=== PATIENT | female | born 1975 | race Caucasian/White ===

== ENCOUNTER 2018-05-19 15:07 | Inpatient (IN) | payer MEDICAID ==
[~2018-05-19] VITALS: Ht 157.5 cm; Wt 95.0 kg
[2018-05-19] VITALS (9 sets, daily range): BP systolic 140–167; BP diastolic 77–124
[2018-05-19] MEDS ORDERED: inSUlin REGULAR TPN/DRIP 250 UNITS/NS 250 ML IV SCH ×2 (17:30)
[2018-05-19] MEDS ORDERED: METOCLOPRAMIDE INJ 10 MG/2 ML (REGLAN) ONE (17:35)
[2018-05-19] MEDS ORDERED: D5 1/2 NS 1000 ML IV SOLUTION 1,000 ML IV ONE (17:36)
[2018-05-19] MEDS ORDERED: POTASSIUM CL 10MEQ/50ML IVPB 50 ML IV ONE (17:36)
[2018-05-19] MEDS: POTASSIUM CL 10 MEQ/50 ML IVPB (PRE-MIX) IV PRN ×3 (17:42→22:00)
[2018-05-19] MEDS: METOCLOPRAMIDE INJ 10 MG/2 ML (REGLAN) IVP SCH (17:42)
[2018-05-19] MEDS: D5 1/2 NS 1000 ML IV SOLUTION 1,000 ML IV PRN ×2 (17:42→22:00)
[2018-05-19] MEDS ORDERED: NS IV 1000 ML 1,000 ML IV ONE (17:45)
[2018-05-19] MEDS ORDERED: POTASSIUM CL 10 MEQ/50 ML IVPB (PRE-MIX) IV PRN (17:45)
[2018-05-19 17:47] LABS: HEMOGLOBIN 15.3 G/DL (11.5-16.0); RED CELL DISTRIBUTION WIDTH 12.8 % (10.0-14.5); WHITE BLOOD COUNT 16.2 10^3/uL (4.3-11.0)
[2018-05-19] MEDS: 1/2 NS IV SOLUTION 1,000 ML IV SCH ×3 (18:01→23:22)
[2018-05-19 18:07] LABS: BUN/CREATININE RATIO 12; CALCIUM 9.5 MG/DL (8.5-10.1); CARBON DIOXIDE 19 MMOL/L (21-32); CHLORIDE 101 MMOL/L (98-107); CREATININE SERUM 0.86 MG/DL (0.60-1.30); GFR ESTIMATED > 60; GLUCOSE 176 MG/DL (70-105); POTASSIUM 4.6 MMOL/L (3.6-5.0); SODIUM 135 MMOL/L (135-145)
[2018-05-19 18:22] LABS: BILIRUBIN,URINE NEGATIVE (NEGATIVE); CLARITY,URINE CLEAR; COLOR,URINE YELLOW; GLUCOSE, URINE (UA) NEGATIVE (NEGATIVE); KETONES,URINE NEGATIVE (NEGATIVE); LEUKOCYTE ESTERASE ,URINE NEGATIVE (NEGATIVE); NITRITE,URINE NEGATIVE (NEGATIVE); PH,URINE 7 (5-9); PROTEIN,URINE NEGATIVE (NEGATIVE); UROBILINOGEN,URINE NORMAL (NORMAL)
[2018-05-19 18:28] LABS: RBC,URINE RARE /HPF; SQUAMOUS EPITHELIAL CELL,UR 0-2 /HPF
[2018-05-19 19:36] LABS: CALCIUM 8.8 MG/DL (8.5-10.1); CARBON DIOXIDE 21 MMOL/L (21-32); GLUCOSE 248 MG/DL (70-105)
[2018-05-19 19:43] LABS: CHLORIDE 103 MMOL/L (98-107); POTASSIUM 3.8 MMOL/L (3.6-5.0)
[2018-05-19 19:51] LABS: BUN/CREATININE RATIO 11; CREATININE SERUM 0.83 MG/DL (0.60-1.30); GFR ESTIMATED > 60
[2018-05-19 21:08] LABS: SODIUM 133 MMOL/L (135-145)
[2018-05-19] MEDS: traZODone 150 MG (DESYREL) TABLET PO SCH (21:57)
[2018-05-19] MEDS: PANTOPRAZOLE 40 MG (PROTONIX) TAB PO SCH (21:57)
--- NOTE | 2018-05-19 22:32 | NUR ---
This RN called EICU at 2201, pt complaining of severe upper abdominal pain. Gave patient warm blankets. Orders received at 2231 .
[2018-05-19] MEDS ORDERED: fentaNYL INJECTION 100 MCG/2 ML AMP IV ONE (23:00)
[2018-05-19] MEDS: PROCHLORPERAZINE 10 MG/2ML INJ (COMPAZINE) IV PRN (23:04)
[2018-05-19 23:43] LABS: BUN/CREATININE RATIO 9; CALCIUM 8.5 MG/DL (8.5-10.1); CARBON DIOXIDE 20 MMOL/L (21-32); CHLORIDE 104 MMOL/L (98-107); CREATININE SERUM 0.78 MG/DL (0.60-1.30); GFR ESTIMATED > 60; GLUCOSE 169 MG/DL (70-105); POTASSIUM 3.3 MMOL/L (3.6-5.0); SODIUM 137 MMOL/L (135-145)
[2018-05-20] VITALS (14 sets, daily range): BP systolic 144–185; BP diastolic 67–111
[2018-05-20] MEDS: METOCLOPRAMIDE INJ 10 MG/2 ML (REGLAN) IVP SCH ×5 (00:01→23:32)
[2018-05-20] MEDS: POTASSIUM CL 10 MEQ/50 ML IVPB (PRE-MIX) IV PRN ×3 (00:51→05:24)
[2018-05-20] MEDS: 1/2 NS IV SOLUTION 1,000 ML IV SCH ×2 (02:39→10:35)
[2018-05-20] MEDS: D5 1/2 NS 1000 ML IV SOLUTION 1,000 ML IV PRN (02:39)
[2018-05-20 03:57] LABS: BASOPHILS % (AUTO) 0 % (0-10); EOSINOPHILS # (AUTO) 0.1 10^3/uL (0.0-0.3); EOSINOPHILS % (AUTO) 1 % (0-10); HEMATOCRIT 40 % (35-52); HEMOGLOBIN 14.4 G/DL (11.5-16.0); LYMPHOCYTES # (AUTO) 2.6 X 10^3 (1.0-4.0); LYMPHOCYTES % (AUTO) 30 % (12-44); MEAN CORPUSCULAR HEMOGLOBIN 33 PG (25-34); MEAN CORPUSCULAR HGB CONC 36 G/DL (32-36); MEAN CORPUSCULAR VOLUME 91 FL (80-99); MEAN PLATELET VOLUME 10.1 FL (7.4-10.4); MONOCYTES % (AUTO) 11 % (0-12); NEUTROPHILS % (AUTO) 58 % (42-75); PLATELET COUNT 199 10^3/uL (130-400); RED CELL DISTRIBUTION WIDTH 12.9 % (10.0-14.5); WHITE BLOOD COUNT 8.6 10^3/uL (4.3-11.0)
[2018-05-20 04:21] LABS: BUN/CREATININE RATIO 6; CALCIUM 8.4 MG/DL (8.5-10.1); CARBON DIOXIDE 22 MMOL/L (21-32); CHLORIDE 107 MMOL/L (98-107); CREATININE SERUM 0.79 MG/DL (0.60-1.30); GFR ESTIMATED > 60; GLUCOSE 153 MG/DL (70-105); MAGNESIUM 1.7 MG/DL (1.8-2.4); POTASSIUM 3.6 MMOL/L (3.6-5.0); SODIUM 139 MMOL/L (135-145)
[2018-05-20] MEDS ORDERED: inSUlin DETERMIR 1 UNIT/0.01 ML (LEVEMIR) CHARGE PER UNIT SQ ONE ×2 (05:12→05:45)
[2018-05-20] MEDS: MAGNESIUM 1 GM/100 ML IVPB 100 ML IV SCH ×2 (05:24→06:30)
[2018-05-20] MEDS: inSUlin ASPART (NovoLOG) 1 UNIT/0.01 ML (CHARGE PER UNIT) SC SCH ×6 (05:41→19:40)
[2018-05-20] MEDS ORDERED: POTASSIUM CL 10MEQ/50ML IVPB 50 ML IV SCH (06:00)
[2018-05-20] MEDS ORDERED: KCL 20 MEQ TAB (K-DUR) PO SCH (06:00)
[2018-05-20] MEDS ORDERED: MAGNESIUM 1 GM/100 ML IVPB 100 ML IV SCH (06:00)
--- NOTE | 2018-05-20 07:06 | Pulmonary Consultation ---
History of Present Illness History of Present Illness Date of Consultation 05/20/18 07:01 Time Seen by Provider: 07:16 Date of Admission History of Present Illness 42yo with hx of DM II, COPD current tobacco use, REHANA presented as direct admit from [facility] secondary to acute DKA. She has not had any prior episodes of DKA and only takes metformin at home. She is currently on DKA protocol. She has complained of DARREL 8/10 cramping/sharp abdominal pain with nausea and vomiting during the night. She still c/o persistent abdominal pain. No prior episodes like this. No hx of acute pancreatitis or DKA. Vomiting was x 1. No fever/NS/ Chills. I am consulted for ICU/pulmonary management. Allergies and Home Medications Allergies Coded Allergies: adhesive tape (Verified Allergy, Unknown, 05/19/18) chlorhexidine (Verified Allergy, Unknown, 05/19/18) fluvoxamine (Verified Allergy, Unknown, 05/19/18) hydromorphone (Verified Allergy, Unknown, 05/19/18) latex (Verified Allergy, Unknown, 05/19/18) meperidine (Verified Allergy, Unknown, 05/19/18) morphine (Verified Allergy, Unknown, 05/19/18) sulfamethoxazole (Verified Allergy, Unknown, 05/19/18) trimethoprim (Verified Allergy, Unknown, 05/19/18) Past Hpgeayz-Jvyezv-Hmoish Hx Patient Social History Alcohol Use: Denies Use Recreational Drug Use: No Recent Foreign Travel: No Contact w/Someone Who Travel: No Recent Hopitalizations: No Immunizations Up To Date Date of Pneumonia Vaccine: May 19, 2015 Date of Influenza Vaccine: Mar 29, 2018 Seasonal Allergies Seasonal Allergies: Yes Past Medical History Respiratory: Yes Asthma Currently Using CPAP: Yes Currently Using BIPAP: No Cardiac: No Neurological: No Female 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 Disorders: Denies Sexually Transmitted Disease: No HIV/AIDS: No Genitourinary: No Gastrointestinal: Yes Gastroesophageal Reflux Musculoskeletal: No Endocrine: Yes Are Your Blood Sugars Over 250: No HEENT: Yes (wears glasses) Hearing Impairment: Denies Cancer: No Psychosocial: Yes (schizoeffective disorder) Anxiety, Depression Integumentary: No Blood Disorders: No Review of Systems Time Seen by Provider: 07:15 Constitutional: Weakness, Malaise Eyes: No: Pain, Vision change, Conjunctivae inflammation, Eyelid inflammation, Other, Redness ENT: Nose congestion; No: Ear pain, Ear discharge, Nose pain, Nose discharge, Mouth pain, Mouth swelling, Throat pain, Throat swelling, Other Respiratory: Cough, Dry, Shortness of breath, SOB with excertion, Wheezing Cardiovascular: Palpitations, Orthopnea, Paroxysmal Noc. Dyspnea Gastrointestinal: Nausea, Vomiting, Abdominal Pain; No: Diarrhea Genitourinary: No Dysuria, No Frequency, No Incontinence, No Hematuria, No Retention, No Other Sepsis Event Evaluation Height, Weight, BMI Height: 5'2.00" Weight: 209lbs. 7.0oz. 94.032782ja; 38.1 BMI Method: Exam Exam Vital Signs Date Time Temp Pulse Resp B/P (MAP) Pulse Ox O2 Delivery O2 Flow Rate FiO2 05/20/18 06:00 87 14 185/108 (133) 98 Room Air 05/20/18 05:00 85 17 157/84 (108) 98 Room Air 05/20/18 04:00 98.4 05/20/18 04:00 Room Air 05/20/18 04:00 83 20 151/85 (107) 95 Room Air 05/20/18 03:00 92 21 167/95 (119) 97 Room Air 05/20/18 02:00 90 21 144/92 (109) 93 Room Air 05/20/18 01:00 100 20 167/98 (121) 93 Room Air 05/20/18 01:00 100 05/20/18 00:04 98.0 05/20/18 00:00 Room Air 05/20/18 00:00 98 15 155/86 (109) 95 Room Air 05/19/18 22:00 89 19 166/98 (120) 97 Room Air 05/19/18 20:00 90 16 167/98 (121) 96 Room Air 05/19/18 20:00 Room Air 05/19/18 19:33 99.6 05/19/18 19:00 91 05/19/18 19:00 85 23 165/96 (119) 98 Room Air 05/19/18 18:00 90 15 149/77 (101) 96 Room Air 05/19/18 17:30 98 19 156/79 (104) Room Air 05/19/18 17:15 82 25 149/108 (122) 99 Room Air 05/19/18 17:00 97.6 05/19/18 17:00 93 20 141/77 (98) 96 Room Air 05/19/18 16:49 Room Air 05/19/18 16:45 86 8 146/78 (100) 96 Room Air 05/19/18 16:32 96 05/19/18 16:30 95 140/124 (129) 97 Room Air I & O 05/20/18 07:00 Intake Total 3450 ml Output Total 3100 ml Balance 350 ml Height & Weight Height: 5'2.00" Weight: 209lbs. 7.0oz. 94.838251un; 38.1 BMI Method: General Appearance: Anxious, Mild Distress, Obese HEENT: PERRL/EOMI, Normal ENT Inspection, Pharynx Normal Neck: Full Range of Motion, Normal Inspection, Non Tender, Supple Respiratory: Chest Non Tender, No Accessory Muscle Use, No Respiratory Distress , Decreased Breath Sounds Cardiovascular: Regular Rate, Rhythm, No Edema, No Gallop Capillary Refill: Less Than 3 Seconds Gastrointestinal: normal bowel sounds, soft, no organomegaly, distended (mild) ; No guarding, No rebound; tenderness (TTP RUQ) Extremity: Normal Capillary Refill Neurologic/Psychiatric: Alert, Oriented x3 Skin: Normal Color, Warm/Dry Lymphatic: No Adenopathy Results Lab Laboratory Tests 05/19/18 17:42 05/19/18 19:18 05/19/18 23:17 05/20/18 03:20 Assessment/Plan Assessment/Plan Acute DKA -18 units Levemir given this AM -D/C insulin protocol 2hrs after Levemir -IVF -education Persistent nausea/vomiting r/o acute pancreatitis -check amylase/lipase -IVF -May need CT of abd/pelvis - will see if pain n/v improves with DKA improvement. HTN -Obtain home med list. -Will start lisinopril and Lopressor PO HX of COPD with current tobacco use -Will do out patient pulmonary work up -Education Obesity with REHANA -pt can use her home CPAP machine ZOILA KURTZ DO May 20, 2018 07:06
[2018-05-20] MEDS: PROCHLORPERAZINE 10 MG/2ML INJ (COMPAZINE) IV PRN ×2 (07:56→12:51)
[2018-05-20] MEDS: NS IV 1000 ML 1,000 ML IV SCH ×2 (07:57→15:10)
[2018-05-20 07:58] LABS: AMYLASE 70 U/L (25-125); LIPASE 70 U/L (8-78)
--- NOTE | 2018-05-20 08:04 | Diagnostic Imaging Report ---
INDICATION: Shortness of breath. COMPARISON: None. FINDINGS: Single view of the chest demonstrate clear lungs bilaterally. The heart is normal. There is no pneumothorax. Osseous structures are normal. IMPRESSION: Negative chest. Dictated by: Dictated on workstation # [id number]
[2018-05-20] MEDS ORDERED: HALOPERIDOL 0.5 MG (HALDOL) TAB PO NR (09:20)
[2018-05-20] MEDS ORDERED: inSUlin DETERMIR 1 UNIT/0.01 ML (LEVEMIR) CHARGE PER UNIT SQ NR (09:22)
[2018-05-20] MEDS: meTOprolol TARTRATE 25 MG (LOPRESSOR) TABLET PO SCH ×2 (10:03→21:00)
[2018-05-20] MEDS: lisINopril 20 MG (PRINIVIL) TABLET PO SCH (10:03)
[2018-05-20] MEDS: inSUlin DETERMIR 1 UNIT/0.01 ML (LEVEMIR) CHARGE PER UNIT SQ SCH (10:04)
[2018-05-20] MEDS ORDERED: LISI10TA2 PO (10:28)
[2018-05-20] MEDS ORDERED: PROM25TA14 PO (10:29)
[2018-05-20] MEDS ORDERED: TRAM50TA2 PO (10:30)
[2018-05-20] MEDS ORDERED: LEVO500T80 PO (10:31)
[2018-05-20] MEDS ORDERED: VENL150T PO (10:32)
[2018-05-20] MEDS ORDERED: RT-ALBUINH IH (10:32)
[2018-05-20] MEDS ORDERED: IPRA3AMP31 IH (10:33)
[2018-05-20] MEDS ORDERED: METF750T2 PO (10:34)
[2018-05-20] MEDS ORDERED: TRAZ150T72 PO (10:34)
[2018-05-20] MEDS ORDERED: POTA10CA43 PO (10:35)
[2018-05-20] MEDS ORDERED: OMEP20CA12 PO (10:35)
[2018-05-20] MEDS ORDERED: METO10TA3 PO (10:36)
[2018-05-20] MEDS ORDERED: ONDA4TAB11 PO (10:36)
[2018-05-20] MEDS ORDERED: ACET-168 PO (10:37)
--- NOTE | 2018-05-20 10:38 | NUR ---
SPOKE TO PATIENT SHE STATED WHAT SHE TOOK AND HOW SHE TOOK HER MEDICATIONS. SHE COULD NOT RECAL THE STRENGTH OF THE ATORVASTATIN SO I CALLED [facility] IN [place] TO VERIFY.
--- NOTE | 2018-05-20 12:16 | History & Physical-Hospitalist ---
History of Present Illness HPI/Chief Complaint The patient is a 42-year-old white female with history of type II diabetes mellitus who noted the onset of nausea and vomiting 5 days ago when she woke up in the morning. She reports no previous problems with nausea and vomiting up until 6 months ago when she started having chronic problems with nausea and vomiting. She states it starts usually in the morning and is been refractory to metoclopramide she gets no benefit from Zofran but does note some intermittent improvement with Phenergan. She's had a workup that has entailed an EGD and gastric emptying studies which she reports were negative. She wasn' t sure of the GI specialist she seen but he is in [place]. She presented to the [facility] emergency room where she was noted to be in diabetic ketoacidosis. She was not aware of any previous history of diabetic ketoacidosis with other hospitalizations which there are been several over the last 6 month period. These have all been for hyperemesis. She denies any significant abdominal cramping mostly it is nausea. After emesis she will notice some facial edema but not before. About 24 hours after the onset of nausea and vomiting she will typically have several loose stools and does have a sensation of abdominal distention. She has a past history of total abdominal hysterectomy for benign reasons and cholecystectomy with no recent surgery. She denies any associated night sweats chills or fever. She does note that she stays on liquids symptoms are much less likely to occur. She reports roughly a 30 pound weight loss over the past 6 months. Date Seen 05/20/18 Time Seen by a Provider: 08:30 Attending Physician Regina Strauss MD PCP James Euceda MD Referring Physician Date of Admission May 19, 2018 at 16:26 Home Medications & Allergies Home Medications Reviewed patient Home Medication Reconciliation performed by pharmacy medication reconciliations optoelectronic technician and/or nursing. Patients Allergies have been reviewed. Allergies Allergies Coded Allergies adhesive tape (Verified Allergy, Unknown, 05/19/18) chlorhexidine (Verified Allergy, Unknown, 05/19/18) fluvoxamine (Verified Allergy, Unknown, 05/19/18) hydromorphone (Verified Allergy, Unknown, 05/19/18) latex (Verified Allergy, Unknown, 05/19/18) meperidine (Verified Allergy, Unknown, 05/19/18) morphine (Verified Allergy, Unknown, 05/19/18) sulfamethoxazole (Verified Allergy, Unknown, 05/19/18) trimethoprim (Verified Allergy, Unknown, 05/19/18) Past Xckghow-Ytjdpz-Lvozkj Hx Past Med/Social Hx: Reviewed and Corrections made Patient Social History Alcohol Use: Denies Use Recreational Drug Use: No Physical Abuse Screen: No Sexual Abuse: No Recent Foreign Travel: No Contact w/other who traveled: No Recent Hopitalizations: No Immunizations Up To Date Date of Pneumonia Vaccine: May 19, 2015 Date of Influenza Vaccine: Mar 29, 2018 Seasonal Allergies Seasonal Allergies: Yes Past Medical History Currently Using CPAP: Yes Currently Using BIPAP: No Sexually Transmitted Disease: No HIV/AIDS: No Female 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 Disorders: Denies Gastrointestinal: Gastroesophageal Reflux Are Your Blood Sugars Over 250: No Hearing Impairment: Denies Psychosocial: Anxiety, Depression History of Blood Disorders: No Review of Systems Constitutional: weight loss Respiratory: No no symptoms reported; see HPI; No cough, No dyspnea on exertion , No hemoptysis, No orthopnea, No phlegm, No short of breath, No stridor, No wheezing, No other Gastrointestinal: see HPI (No melena or bright red blood per rectum noted. Patient denies constipation as well.) Physical Exam Physical Exam Vital Signs Vital Signs - First Documented 05/19/18 05/19/18 05/19/18 16:30 16:45 17:00 Temp 97.6 Pulse 95 Resp 8 B/P (MAP) 140/124 (129) Pulse Ox 97 O2 Delivery Room Air Capillary Refill : Less Than 3 Seconds Height, Weight, BMI Height: 5'2.00" Weight: 209lbs. 7.0oz. 94.805499ht; 38.1 BMI Method: General Appearance: No Apparent Distress, Obese Neck: Full Range of Motion, Normal Inspection, Non Tender, Supple Respiratory: Chest Non Tender, Lungs Clear, Normal Breath Sounds, No Accessory Muscle Use, No Respiratory Distress Cardiovascular: Regular Rate, Rhythm, No Edema, No Gallop, No JVD, No Murmur, Normal Peripheral Pulses Gastrointestinal: Normal Bowel Sounds, No Organomegaly, No Pulsatile Mass, Non Tender, Soft Extremity: Normal Capillary Refill, Normal Inspection, Normal Range of Motion, Non Tender, No Calf Tenderness, No Pedal Edema Neurologic/Psychiatric: Alert, Oriented x3, No Motor/Sensory Deficits, Normal Mood/Affect Skin: Normal Color, Warm/Dry Results Results/Procedures Labs Laboratory Tests 05/19/18 17:42 05/19/18 19:18 05/19/18 23:17 05/20/18 03:20 Patient resulted labs reviewed. Assessment/Plan Admission Diagnosis 1. Diabetic ketoacidosis brought on by hyperemesis of unknown etiology. Patient reports that her gastric emptying study was normal making diabetic gastroparesis less likely. At the time of her symptoms last night KUB did not reveal any evidence to suggest mechanical obstruction however this does not exclude the possibility of partial small bowel obstruction especially in light of an individual who had rather abrupt onset of symptoms with several abdominal surgeries in the past. Strongly advised that she return to see her parts room associate upon discharge and that she remain on insulin therapy on discharge. Currently her ketosis has resolved overnight will transfer to the floor later on today on basal bolus therapy. For additional treatment of hyperemesis after discussion with the patient about potential medication side effects will initiate Haldol 1 mg twice a day. She was warned about sedation and other side effects however she reports no sedation with Phenergan and 300 mg of trazodone allows her to sleep without oversedation. Admission Status: Inpatient Order (span 2 midnights) Reason for Inpatient Admission: See admission diagnosis Clinical Quality Measures DVT/VTE Risk/Contraindication: Risk Factor Score Per Nursin RFS Level Per Nursing on Admit: 4+=Very High REGINA STRAUSS MD May 20, 2018 12:16
--- NOTE | 2018-05-20 17:59 | NUR ---
LEFT MESSAGE ON DR STRAUSS'S PHONE REQUESTING ALTERNATE NAUSEA MEDICATION. THE PATIENT HAS HAD 2 DOSES OF COMPAZINE (PHARMACY NOTE STATES TO GIVE A MAXIMIN OR 2 DOSES A DAY) TODAY AND HER SCHEDULED REGLAN.
--- NOTE | 2018-05-20 18:39 | NUR ---
SENT A MESSAGE TO DR STRAUSS REGARDING PREVIOUS MESSAGE AND REQUESTED NAUSEA MEDICATION.
--- NOTE | 2018-05-20 18:43 | NUR ---
NEW ORDER RECEIVED FROM DR STRAUSS.
[2018-05-20] MEDS: PROMETHAZINE 25 MG (PHENERGAN) TAB PO PRN (18:52)
[2018-05-20] MEDS: traZODone 150 MG (DESYREL) TABLET PO SCH (21:00)
[2018-05-20] MEDS: HALOPERIDOL 2 MG (HALDOL) TABLET PO SCH (21:00)
[2018-05-20] MEDS ORDERED: inSUlin DETERMIR 1 UNIT/0.01 ML (LEVEMIR) CHARGE PER UNIT SQ SCH (21:00)
[2018-05-20] MEDS: PANTOPRAZOLE 40 MG (PROTONIX) TAB PO SCH (21:00)
--- NOTE | 2018-05-20 23:17 | NUR ---
Patient c/o 10/10 sharp pains in abdomen and states that "the pain medication from yesterday worked". This RN saw that fentanyl was ordered yesterday and cantacted Dr. Sandhu who gave TORB for 50mcg Fentanyl IVP Q2H PRN for severe pain.
[2018-05-20] MEDS: fentaNYL INJECTION 100 MCG/2 ML AMP IVP PRN (23:33)
[2018-05-21] MEDS: NS IV 1000 ML 1,000 ML IV SCH ×4 (02:03→16:57)
[2018-05-21 04:00] VITALS: BP 165/74
[2018-05-21 05:01] LABS: BASOPHILS % (AUTO) 0 % (0-10); EOSINOPHILS # (AUTO) 0.1 10^3/uL (0.0-0.3); EOSINOPHILS % (AUTO) 1 % (0-10); HEMATOCRIT 41 % (35-52); HEMOGLOBIN 14.2 G/DL (11.5-16.0); LYMPHOCYTES # (AUTO) 1.9 X 10^3 (1.0-4.0); LYMPHOCYTES % (AUTO) 25 % (12-44); MEAN CORPUSCULAR HEMOGLOBIN 32 PG (25-34); MEAN CORPUSCULAR HGB CONC 35 G/DL (32-36); MEAN CORPUSCULAR VOLUME 92 FL (80-99); MEAN PLATELET VOLUME 10.3 FL (7.4-10.4); MONOCYTES # (AUTO) 0.9 X 10^3 (0.0-1.0); MONOCYTES % (AUTO) 11 % (0-12); NEUTROPHILS # (AUTO) 4.8 X 10^3 (1.8-7.8); NEUTROPHILS % (AUTO) 62 % (42-75); PLATELET COUNT 180 10^3/uL (130-400); RED CELL DISTRIBUTION WIDTH 12.8 % (10.0-14.5); WHITE BLOOD COUNT 7.7 10^3/uL (4.3-11.0)
[2018-05-21 05:19] LABS: BUN/CREATININE RATIO 4; CALCIUM 8.1 MG/DL (8.5-10.1); CARBON DIOXIDE 19 MMOL/L (21-32); CHLORIDE 107 MMOL/L (98-107); CREATININE SERUM 0.74 MG/DL (0.60-1.30); GFR ESTIMATED > 60; GLUCOSE 193 MG/DL (70-105); MAGNESIUM 1.6 MG/DL (1.8-2.4); PHOSPHORUS 2.8 MG/DL (2.3-4.7); POTASSIUM 3.7 MMOL/L (3.6-5.0); SODIUM 137 MMOL/L (135-145)
--- NOTE | 2018-05-21 06:01 | Pulmonary Progress Note ---
Subjective Time Seen by a Provider: 07:56 Subjective/Events-last exam No complications noted. Sepsis Event Evaluation Height, Weight, BMI Height: 5'2.00" Weight: 209lbs. 7.0oz. 94.539806gb; 38.1 BMI Method: Exam Exam Vital Signs Date Time Temp Pulse Resp B/P (MAP) Pulse Ox O2 Delivery O2 Flow Rate FiO2 05/21/18 04:00 99.2 88 16 165/74 (104) 95 Room Air 05/20/18 23:31 98.9 82 20 158/90 (112) 97 Room Air 05/20/18 20:06 99.0 79 18 158/67 (97) 95 Room Air 05/20/18 20:00 Room Air 05/20/18 16:00 97.9 88 20 159/81 (107) 97 Room Air 05/20/18 13:00 97.9 82 20 155/85 (108) 97 Room Air 05/20/18 12:00 69 21 98 Room Air 05/20/18 12:00 Room Air 05/20/18 11:00 81 25 95 Room Air 05/20/18 10:00 94 7 Room Air 05/20/18 09:00 89 15 Room Air 05/20/18 08:00 82 23 168/88 (114) 98 Room Air 05/20/18 08:00 Room Air 05/20/18 07:20 93 12 172/97 (122) 96 Room Air 05/20/18 07:08 104 05/20/18 07:00 105 26 178/111 (133) 96 Room Air 05/20/18 07:00 98.4 05/20/18 06:00 87 14 185/108 (133) 98 Room Air I & O 05/21/18 07:00 Intake Total 3760 ml Output Total 1800 ml Balance 1960 ml Height & Weight Height: 5'2.00" Weight: 209lbs. 7.0oz. 94.024846ao; 38.1 BMI Method: General Appearance: No Apparent Distress, Obese HEENT: PERRL/EOMI, Normal ENT Inspection, Pharynx Normal Neck: Full Range of Motion, Normal Inspection, Non Tender, Supple Respiratory: Chest Non Tender, Lungs Clear, Normal Breath Sounds, No Accessory Muscle Use, No Respiratory Distress Cardiovascular: Regular Rate, Rhythm, No Edema, No Gallop, No JVD, No Murmur, Normal Peripheral Pulses Capillary Refill: Less Than 3 Seconds Gastrointestinal: normal bowel sounds, soft, no organomegaly, distended (mild) ; No guarding, No rebound; tenderness (TTP RUQ) Extremity: Normal Capillary Refill, Normal Inspection, Normal Range of Motion, Non Tender, No Calf Tenderness, No Pedal Edema Neurologic/Psychiatric: Alert, Oriented x3, No Motor/Sensory Deficits, Normal Mood/Affect Skin: Normal Color, Warm/Dry Lymphatic: No Adenopathy Results Lab Laboratory Tests 05/19/18 17:42 05/19/18 19:18 05/19/18 23:17 05/20/18 03:20 05/21/18 04:40 Assessment/Plan Assessment/Plan HX of COPD with current tobacco use -Will do out patient pulmonary work up -Education Obesity with REHANA -pt can use her home CPAP machine Acute DKA - resolved -education Persistent nausea/vomiting r/o acute pancreatitis -amylase/lipase HTN -Obtain home med list. -Will start lisinopril and Lopressor PO ZOILA KURTZ DO May 21, 2018 06:01
[2018-05-21] MEDS: METOCLOPRAMIDE INJ 10 MG/2 ML (REGLAN) IVP SCH ×3 (06:10→16:56)
[2018-05-21] MEDS: inSUlin ASPART (NovoLOG) 1 UNIT/0.01 ML (CHARGE PER UNIT) SC SCH ×7 (06:35→19:37)
[2018-05-21] MEDS: fentaNYL INJECTION 100 MCG/2 ML AMP IVP PRN ×3 (07:46→20:12)
[2018-05-21 08:00] VITALS: BP 176/82
[2018-05-21] MEDS: lisINopril 20 MG (PRINIVIL) TABLET PO SCH (08:25)
[2018-05-21] MEDS: meTOprolol TARTRATE 25 MG (LOPRESSOR) TABLET PO SCH ×2 (08:25→20:12)
[2018-05-21] MEDS: inSUlin DETERMIR 1 UNIT/0.01 ML (LEVEMIR) CHARGE PER UNIT SQ SCH (08:26)
[2018-05-21] MEDS: HALOPERIDOL 2 MG (HALDOL) TABLET PO SCH ×2 (08:26→20:12)
--- NOTE | 2018-05-21 10:42 | Progress Note-Hospitalist ---
Subjective HPI/CC On Admission Date Seen by Provider: May 21, 2018 Time Seen by Provider: 07:30 The patient is a 42-year-old white female with history of type II diabetes mellitus who noted the onset of nausea and vomiting 5 days ago when she woke up in the morning. She reports no previous problems with nausea and vomiting up until 6 months ago when she started having chronic problems with nausea and vomiting. She states it starts usually in the morning and is been refractory to metoclopramide she gets no benefit from Zofran but does note some intermittent improvement with Phenergan. She's had a workup that has entailed an EGD and gastric emptying studies which she reports were negative. She wasn' t sure of the GI specialist she seen but he is in [place]. She presented to the [facility] emergency room where she was noted to be in diabetic ketoacidosis. She was not aware of any previous history of diabetic ketoacidosis with other hospitalizations which there are been several over the last 6 month period. These have all been for hyperemesis. She denies any significant abdominal cramping mostly it is nausea. After emesis she will notice some facial edema but not before. About 24 hours after the onset of nausea and vomiting she will typically have several loose stools and does have a sensation of abdominal distention. She has a past history of total abdominal hysterectomy for benign reasons and cholecystectomy with no recent surgery. She denies any associated night sweats chills or fever. She does note that she stays on liquids symptoms are much less likely to occur. She reports roughly a 30 pound weight loss over the past 6 months. Subjective/Events-last exam Patient had sharp epigastric in episode last night with emesis this predated fentanyl which I gave after contacted by nursing staff last night. There is no evidence for hematemesis she's had one loose stool was a melanotic and without evidence for bright red blood. Apparently prior to cholecystectomy she did have a bout of pancreatitis of which this is similar several years ago. Her lipase level was borderline high at 77 when she presented to [facility] on the . She was however in DKA at that time. She reports no history of alcohol consumption. Objective Exam Vital Signs Vital Signs Date Time Temp Pulse Resp B/P (MAP) Pulse Ox O2 Delivery O2 Flow Rate FiO2 05/21/18 08:00 95 Room Air 05/21/18 08:00 97.2 97 20 176/82 (113) Capillary Refill : Less Than 3 Seconds General Appearance: No Apparent Distress, Obese Respiratory: Chest Non Tender, Lungs Clear, Normal Breath Sounds, No Accessory Muscle Use, No Respiratory Distress Cardiovascular: Regular Rate, Rhythm, No Edema, No Gallop, No JVD, No Murmur, Normal Peripheral Pulses Gastrointestinal: Normal Bowel Sounds, No Organomegaly, No Pulsatile Mass, Soft , Other (Epigastric and left upper quadrant discomfort to palpation with epigastric guarding no rebound noted.) Extremity: Normal Inspection, Non Tender, No Pedal Edema Results/Procedures Lab Laboratory Tests 05/21/18 04:40 Patient resulted labs reviewed. Assessment/Plan Assessment and Plan Assess & Plan/Chief Complaint 1. Diabetic ketoacidosis brought on by hyperemesis and abdominal pain of unclear etiology former improved with reasonable blood sugar control will increase NovoLog to 7 units before meals and Levemir to 20 units at at bedtime. Lipase level on presentation was minimally elevated raising the possibility of acute exacerbation of chronic pancreatitis there were no CT findings to suggest chronic pancreatitis or acute pancreatitis done in [facility]. Repeat level today was normal down to the mid 30 range Patient reports that her gastric emptying study was normal making diabetic gastroparesis less likely. EGD was also reportedly normal both studies having been done in the past several months for the same symptomatology. At the time of her worst symptoms Tuesday night KUB did not reveal any evidence to suggest mechanical obstruction however this does not exclude the possibility of partial small bowel obstruction especially in light of an individual who had rather abrupt onset of symptoms with several abdominal surgeries in the past. Strongly advised that she return to see her carbonation equipment operator upon discharge and that she remain on insulin therapy on discharge. Currently her ketosis has resolved overnight will transfer to the floor later on today on basal bolus therapy. For additional treatment of hyperemesis after discussion with the patient about potential medication side effects will increase Haldol 2 mg twice a day. She was warned about sedation and tardive dyskinesia in layman's terms with chronic use of the medication. If symptoms persist would consider referral to [facility] where she has seen a carbonation equipment operator for further evaluation and consideration for endoscopic ultrasound etc. Clinical Quality Measures DVT/VTE Risk/Contraindication: Risk Factor Score Per Nursin RFS Level Per Nursing on Admit: 4+=Very High Copy Copies To 1: SELF,REGINA NUR MD, MD May 21, 2018 10:42
[2018-05-21 12:00] VITALS: BP 133/62
[2018-05-21 16:00] VITALS: BP 167/74
[2018-05-21 20:00] VITALS: BP 152/88
[2018-05-21] MEDS: PANTOPRAZOLE 40 MG (PROTONIX) TAB PO SCH (20:12)
[2018-05-21] MEDS: traZODone 150 MG (DESYREL) TABLET PO SCH (20:12)
[2018-05-21 23:48] VITALS: BP 178/81
[2018-05-22] VITALS (7 sets, daily range): BP systolic 134–183; BP diastolic 65–88
[2018-05-22] MEDS: METOCLOPRAMIDE INJ 10 MG/2 ML (REGLAN) IVP SCH ×2 (00:31→06:38)
[2018-05-22] MEDS: NS IV 1000 ML 1,000 ML IV SCH (00:32)
[2018-05-22] MEDS: fentaNYL INJECTION 100 MCG/2 ML AMP IVP PRN ×2 (03:22→09:51)
[2018-05-22] MEDS: inSUlin ASPART (NovoLOG) 1 UNIT/0.01 ML (CHARGE PER UNIT) SC SCH ×7 (05:36→20:38)
--- NOTE | 2018-05-22 07:02 | Pulmonary Progress Note ---
LIORKARO Farnsworth STUDENT 05/22/18 0702: Subjective Date Seen by a Provider: May 22, 2018 Time Seen by a Provider: 06:58 Sepsis Event Evaluation Height, Weight, BMI Height: 5'2.00" Weight: 209lbs. 7.0oz. 94.648709bo; 38.1 BMI Method: Exam Exam Vital Signs Date Time Temp Pulse Resp B/P (MAP) Pulse Ox O2 Delivery O2 Flow Rate FiO2 05/22/18 04:00 98.0 90 18 134/65 (88) 97 Room Air 05/21/18 23:48 97.4 89 20 178/81 (113) 97 Room Air 05/21/18 20:12 Room Air 05/21/18 20:00 98.1 84 18 152/88 (109) 97 Room Air 05/21/18 16:00 97.9 85 18 167/74 (105) 98 Room Air 05/21/18 12:00 99.4 93 18 133/62 (85) 96 Room Air 05/21/18 08:00 95 Room Air 05/21/18 08:00 97.2 97 20 176/82 (113) 96 Room Air I & O 05/22/18 07:00 Intake Total 6010 ml Balance 6010 ml Height & Weight Height: 5'2.00" Weight: 209lbs. 7.0oz. 94.138936wp; 38.1 BMI Method: General Appearance: No Apparent Distress, Obese HEENT: PERRL/EOMI, Normal ENT Inspection, Pharynx Normal Neck: Full Range of Motion, Normal Inspection, Non Tender, Supple Respiratory: Chest Non Tender, Lungs Clear, Normal Breath Sounds, No Accessory Muscle Use, No Respiratory Distress Cardiovascular: Regular Rate, Rhythm, No Edema, No Gallop, No JVD, No Murmur, Normal Peripheral Pulses Capillary Refill: Less Than 3 Seconds Gastrointestinal: normal bowel sounds, soft, no organomegaly, distended (mild) ; No guarding, No rebound; tenderness (TTP RUQ) Extremity: Normal Inspection, Non Tender, No Pedal Edema Neurologic/Psychiatric: Alert, Oriented x3, No Motor/Sensory Deficits, Normal Mood/Affect Skin: Normal Color, Warm/Dry Lymphatic: No Adenopathy Results Lab Laboratory Tests 05/21/18 04:40 Assessment/Plan Assessment/Plan HX of COPD with current tobacco use -Will do out patient pulmonary work up -Education Obesity with REHANA -pt can use her home CPAP machine Acute DKA -education -Continued elevation of beta hydroxybutyrate Persistent nausea/vomiting r/o acute pancreatitis -amylase/lipase WNL HTN -Obtain home med list. -Continue lisinopril and Lopressor ZOILA KURTZ DO 05/22/18 0842: Subjective Time Seen by a Provider: 08:39 Subjective/Events-last exam No SOB, cough, or hypoxia. Exam Exam General Appearance: No Apparent Distress, Obese HEENT: PERRL/EOMI, Normal ENT Inspection, Pharynx Normal Neck: Full Range of Motion, Normal Inspection, Non Tender, Supple Respiratory: Chest Non Tender, Lungs Clear, Normal Breath Sounds, No Accessory Muscle Use, No Respiratory Distress Cardiovascular: Regular Rate, Rhythm, No Edema, No Gallop, No JVD, No Murmur, Normal Peripheral Pulses Capillary Refill: Less Than 3 Seconds Gastrointestinal: normal bowel sounds, soft, no organomegaly, distended (mild) ; No guarding, No rebound Extremity: Normal Inspection, Non Tender, No Pedal Edema Neurologic/Psychiatric: Alert, Oriented x3, No Motor/Sensory Deficits, Normal Mood/Affect Skin: Normal Color, Warm/Dry Lymphatic: No Adenopathy Assessment/Plan Assessment/Plan HX of COPD with current tobacco use -Will do out patient pulmonary work up -Education Obesity with REHANA -pt can use her home CPAP machine Acute DKA -education -Continued elevation of beta hydroxybutyrate Persistent nausea/vomiting r/o acute pancreatitis -amylase/lipase WNL HTN -Obtain home med list. -Continue lisinopril and Lopressor I am going to sign off. I will f/u with her as an out patient for pulmonary workup. Please call with any questions or concerns. KARO TINAJERO STUDENT May 22, 2018 07:02 ZOILA KURTZ DO May 22, 2018 08:42
[2018-05-22] MEDS: PROMETHAZINE 25 MG (PHENERGAN) TAB PO PRN (07:36)
[2018-05-22] MEDS: lisINopril 20 MG (PRINIVIL) TABLET PO SCH (08:31)
[2018-05-22] MEDS: meTOprolol TARTRATE 25 MG (LOPRESSOR) TABLET PO SCH ×2 (08:32→20:38)
[2018-05-22] MEDS: HALOPERIDOL 2 MG (HALDOL) TABLET PO SCH ×2 (08:33→20:39)
[2018-05-22] MEDS: inSUlin DETERMIR 1 UNIT/0.01 ML (LEVEMIR) CHARGE PER UNIT SQ SCH (08:36)
[2018-05-22] MEDS ORDERED: SCOPOLAMINE 1.5 MG (TRANSDERM-SCOP) PATCH TD ONE (09:45)
--- NOTE | 2018-05-22 10:13 | Progress Note-Hospitalist ---
Subjective HPI/CC On Admission Date Seen by Provider: May 22, 2018 Time Seen by Provider: 10:07 The patient is a 42-year-old white female with history of type II diabetes mellitus who noted the onset of nausea and vomiting 5 days ago when she woke up in the morning. She reports no previous problems with nausea and vomiting up until 6 months ago when she started having chronic problems with nausea and vomiting. She states it starts usually in the morning and is been refractory to metoclopramide she gets no benefit from Zofran but does note some intermittent improvement with Phenergan. She's had a workup that has entailed an EGD and gastric emptying studies which she reports were negative. She wasn' t sure of the GI specialist she seen but he is in [place] [employer]. She presented to the [facility] emergency room where she was noted to be in diabetic ketoacidosis. She was not aware of any previous history of diabetic ketoacidosis with other hospitalizations which there are been several over the last 6 month period. These have all been for hyperemesis. She denies any significant abdominal cramping mostly it is nausea. After emesis she will notice some facial edema but not before. About 24 hours after the onset of nausea and vomiting she will typically have several loose stools and does have a sensation of abdominal distention. She has a past history of total abdominal hysterectomy for benign reasons and cholecystectomy with no recent surgery. She denies any associated night sweats chills or fever. She does note that she stays on liquids symptoms are much less likely to occur. She reports roughly a 30 pound weight loss over the past 6 months. Subjective/Events-last exam Pt reports persistent abdominal pain and nausea. Was able to keep most of her food down yesterday but vomited after breakfast this AM. Objective Exam Vital Signs Vital Signs Date Time Temp Pulse Resp B/P (MAP) Pulse Ox O2 Delivery O2 Flow Rate FiO2 05/22/18 12:29 98.6 81 20 147/86 (106) 97 Room Air Capillary Refill : Less Than 3 Seconds General Appearance: No Apparent Distress, Obese Respiratory: Lungs Clear, No Respiratory Distress Cardiovascular: Regular Rate, Rhythm, No Murmur Gastrointestinal: Normal Bowel Sounds, Soft; No Distended, No Guarding Neurologic/Psychiatric: Alert, Oriented x3 Results/Procedures Lab Patient resulted labs reviewed. Assessment/Plan Assessment and Plan Assess & Plan/Chief Complaint DKA Diagnosis/Problems Diagnosis/Problems (1) DKA (diabetic ketoacidoses) Status: Resolved Assessment & Plan: Resolved, off gtt Continue home insulin Await a1c Qualifiers: Diabetes mellitus type: type 2 Diabetes mellitus complication detail: without coma Qualified Codes: E11.10 - Type 2 diabetes mellitus with ketoacidosis without coma Resolution Date/Time: 05/22/18 @ 10:12 (2) Epigastric abdominal pain Assessment & Plan: Reports normal gastric emptying study With persistent nausea and vomiting Surgery consulted, appreciate recs Continue PPI NPO for scope Scopolamine added for nausea (3) Depression Status: Chronic Assessment & Plan: Resume home medications Qualifiers: Depression Type: major depressive disorder Major depression recurrence: unspecified whether recurrent Active/Remission status: remission status unspecified Qualified Codes: F32.9 - Major depressive disorder, single episode , unspecified Clinical Quality Measures DVT/VTE Risk/Contraindication: Risk Factor Score Per Nursin RFS Level Per Nursing on Admit: 4+=Very High OSMAR JEROME MD May 22, 2018 10:13
[2018-05-22] MEDS ORDERED: fentaNYL INJECTION 100 MCG/2 ML AMP ONE (12:52)
[2018-05-22] MEDS ORDERED: HURRICAINE EXT TUBE (BENZOCAINE) ONE (12:52)
[2018-05-22] MEDS ORDERED: NS IV 500 ML 500 ML ONE (12:52)
[2018-05-22] MEDS ORDERED: MIDAZOLAM 2 MG/2 ML (VERSED) VIAL ONE ×4 (12:52)
[2018-05-22] MEDS ORDERED: fentaNYL INJECTION 100 MCG/2 ML AMP IVP ONE (13:15)
[2018-05-22] MEDS ORDERED: MIDAZOLAM 2 MG/2 ML (VERSED) VIAL IVP ONE (13:15)
[2018-05-22] MEDS ORDERED: NS IV 500 ML 500 ML IV PRN (13:15)
[2018-05-22] MEDS ORDERED: HURRICAINE EXT TUBE (BENZOCAINE) XX PRN (13:15)
--- NOTE | 2018-05-22 13:18 | Conscious Sedation/ASA ---
Conscious Sedation Pre-Proced Time 13:05 ASA Score 2 For ASA 3 and 4: Consider anesthesia and medical clearance. Also, for patients with a history of failed moderate sedation consider anesthesia. Airway Lungs Heart ASA score ASA 1: a normal healthy patient ASA 2: a patient with a mild systemic disease (mid diabetes, controlled hypertension, obesity ASA 3: a patient with a severe systemic disease that limits activity (angina , COPD, prior Myocardial infarction) ASA 4: a patient with an incapacitating disease that is a constant threat to life (CHF, renal failure) ASA 5: a moribund patient not expected to survive 24 hrs. (ruptured aneurysm) ASA 6: a declared brain patient whose organs are being harvested. For emergent operations, add the letter E after the classification Mallampati Classification Grade 2 Sedation Plan Discussed options with patient/fam The patient is an appropriate candidate to undergo the planned procedure, sedation, and anesthesia. The patient immediately re-assessed prior to indication. SOPHIA ELIZABETH MD May 22, 2018 13:18
--- NOTE | 2018-05-22 13:18 | Progress Note-Standard ---
Standard Progress Note Progress Notes/Assess & Plan Date Seen by a Provider: May 22, 2018 Time Seen by a Provider: 12:50 Progress/Assessment & Plan Asked by Dr. Mccollum to see this lady regarding an upper endoscopy. Currently she is admitted with diabetic ketoacidosis and has ongoing nausea and vomiting. I've discussed the details of the procedure with her and she is in agreement to proceed Final Diagnosis nausea and vomiting SOPHIA ELIZABETH MD May 22, 2018 13:18
--- NOTE | 2018-05-22 13:21 | Endo Procedure Record ---
Endo Procedure Report Date of Procedure Last Colonoscopy: No May 22, 2018 Surgeon (s) SOPHIA ELIZABETH MD Post Procedure/Op Diagnosis grade 1 esophagitis. Mild distal gastritis. No retained food in the stomach Procedure Performed EGD with antral biopsy for H. pylori Description of Procedure Anesthesia Type: Conscious Sedation Specimen(s) collected/removed antral mucosa Description of the Procedure Indication for the procedure: This lady is recovering from diabetic ketoacidosis. Due to prolonged nausea and vomiting, I was asked to perform an upper endoscopy. Informed consent was obtained after reviewing the procedure in detail. Description of the procedure: She was placed in left lateral position and her vital signs were monitored. Conscious sedation was achieved using Versed and fentanyl. The flexible gastroscope introduced down the esophagus, past the stomach, into the proximal duodenum. Findings: Esophagus: Grade 1 esophagitis. Stomach: Mild distal gastritis. There was no retained food. Due to her symptoms, an antral biopsy was performed to rule out H. pylori. Duodenum: Normal She tolerated the procedure well and was taken back to the nursing area in a stable condition. Impression: Ongoing nausea and vomiting. Very minimal esophagitis and gastritis. H. pylori status pending. Copy Copies To 1: GLORY LINARES MD Copies To 2: OSMAR JEROME MD, XAVIER M MD May 22, 2018 13:21
[2018-05-22] MEDS: METOCLOPRAMIDE 10 MG (REGLAN) TAB PO SCH ×3 (13:59→20:38)
[2018-05-22] MEDS: PANTOPRAZOLE 40 MG (PROTONIX) TAB PO SCH (20:38)
[2018-05-22] MEDS ORDERED: traZODone 150 MG (DESYREL) TABLET PO SCH (21:00)
[2018-05-23 04:20] VITALS: BP 169/84
[2018-05-23] MEDS: inSUlin ASPART (NovoLOG) 1 UNIT/0.01 ML (CHARGE PER UNIT) SC SCH ×4 (06:20→11:57)
[2018-05-23] MEDS ORDERED: VENlafaxine XR 75 MG (EFFEXOR XR) CAP PO SCH (07:00)
[2018-05-23 08:15] VITALS: BP 138/88
[2018-05-23] MEDS: lisINopril 20 MG (PRINIVIL) TABLET PO SCH (09:28)
[2018-05-23] MEDS: METOCLOPRAMIDE 10 MG (REGLAN) TAB PO SCH (09:28)
[2018-05-23] MEDS: meTOprolol TARTRATE 25 MG (LOPRESSOR) TABLET PO SCH (09:28)
[2018-05-23] MEDS: inSUlin DETERMIR 1 UNIT/0.01 ML (LEVEMIR) CHARGE PER UNIT SQ SCH (09:29)
--- NOTE | 2018-05-23 09:39 | Discharge Summary-Hospitalist ---
Diagnosis/Chief Complaint Date of Admission May 19, 2018 at 16:26 Date of Discharge Discharge Date: May 23, 2018 Admission Diagnosis 1. Diabetic ketoacidosis brought on by hyperemesis of unknown etiology. Patient reports that her gastric emptying study was normal making diabetic gastroparesis less likely. At the time of her symptoms last night KUB did not reveal any evidence to suggest mechanical obstruction however this does not exclude the possibility of partial small bowel obstruction especially in light of an individual who had rather abrupt onset of symptoms with several abdominal surgeries in the past. Strongly advised that she return to see her director of parks and recreation upon discharge and that she remain on insulin therapy on discharge. Currently her ketosis has resolved overnight will transfer to the floor later on today on basal bolus therapy. For additional treatment of hyperemesis after discussion with the patient about potential medication side effects will initiate Haldol 1 mg twice a day. She was warned about sedation and other side effects however she reports no sedation with Phenergan and 300 mg of trazodone allows her to sleep without oversedation. Discharge Diagnosis (1) DKA (diabetic ketoacidoses) Status: Resolved Assessment & Plan: Resolved, off gtt Continue home insulin Await a1c (2) Epigastric abdominal pain Assessment & Plan: Reports normal gastric emptying study With persistent nausea and vomiting Surgery consulted, appreciate recs Continue PPI NPO for scope Scopolamine added for nausea (3) Depression Status: Chronic Assessment & Plan: Resume home medications Discharge Summary Procedures/Consulations Dr Hurd- Guarav Flannery- Surgery Discharge Physical Exam Allergies: Coded Allergies: adhesive tape (Verified Allergy, Unknown, 05/19/18) chlorhexidine (Verified Allergy, Unknown, 05/19/18) fluvoxamine (Verified Allergy, Unknown, 05/19/18) hydromorphone (Verified Allergy, Unknown, 05/19/18) latex (Verified Allergy, Unknown, 05/19/18) meperidine (Verified Allergy, Unknown, 05/19/18) morphine (Verified Allergy, Unknown, 05/19/18) sulfamethoxazole (Verified Allergy, Unknown, 05/19/18) trimethoprim (Verified Allergy, Unknown, 05/19/18) Vitals & I&Os Vital Signs Date Time Temp Pulse Resp B/P (MAP) Pulse Ox O2 Delivery O2 Flow Rate FiO2 05/23/18 08:20 Room Air 1/29/19 08:15 97.8 89 20 138/88 (105) 98 General Appearance: No Apparent Distress, WD/WN Cardiovascular: Regular Rate, Rhythm, No Murmur Gastrointestinal: Normal Bowel Sounds, Soft Neurologic/Psychiatric: Alert, Oriented x3 Hospital Course Pt was admitted from outside hospital for DKA. She was treated with an insulin drip and her ketoacidosis resolved quickly. She was started on insulin in preparation for discharge. She had persistent abdominal pain though with nausea and vomiting. She has previously seen a GI physician at [facility] and states she had a scope in November that was unremarkable. Dr Flannery was consulted who repeated EGD which showed mild esophagitis. She was continued on her PPI. Her symptoms improved with scopolamine patch. She underwent diabetes education and insulin teaching. I called her PCP, Dr Euceda, to update him to the changes that occurred during her hospital stay. She was discharged home in stable condition to follow up with Dr Euceda and Dr Herndon. Labs (last 24 hrs) Laboratory Tests 05/22/18 17:07: Glucometer 195H 05/22/18 20:14: Glucometer 147H 05/23/18 05:28: Glucometer 148H 05/23/18 08:33: Glucometer 199H Microbiology 05/19/18 MRSA Screen - Final, Complete MRSA not isolated Patient resulted labs reviewed. Pending Labs Laboratory Tests 05/23/18 08:33: Glucometer 199 Discussion & Recommendations Discharge Planning: >30 minutes discharge planning Discharge Home Medications: Active Scripts Active Metoprolol Tartrate 25 Mg Tablet 12.5 Mg PO BID Scopolamine 1 Each Patch.td.3 1 Each TD Q72H Levemir Flextouch (Insulin Detemir) 100 Unit/1 Ml Insuln.pen 20 Unit SQ HS Novolog Flexpen (Insulin Aspart) 300 Units/3 Ml Solution 7 Units SQ AC Lisinopril 20 Mg Tablet 20 Mg PO DAILY Reported Acetaminophen Extra Strength (Acetaminophen) 500 Mg Tablet 500 Mg PO Q8H PRN MDD 1500 Ondansetron Odt (Ondansetron) 4 Mg Tab.rapdis 4 Mg PO Q4H PRN Metoclopramide HCl 10 Mg Tablet 10 Mg PO QID Omeprazole 20 Mg Capsule.dr 20 Mg PO HS Metformin HCl ER (Metformin HCl) 750 Mg Tab.er.24h 750 Mg PO BID Trazodone HCl 150 Mg Tablet 300 Mg PO HS Iprat-Albut 0.5-3(2.5) mg/3 ml (Ipratropium/Albuterol Sulfate) 3 Ml Ampul.neb 3 Ml IH Q4H PRN Proair Hfa (Albuterol Sulfate) 1 Puff Puff 2 Puff IH Q4H PRN 1 PUFF = 90 MCG Venlafaxine HCl ER (Venlafaxine HCl) 150 Mg Tab.er.24 150 Mg PO DAILY Tramadol HCl 50 Mg Tablet 50 Mg PO Q6H PRN Promethazine Tablet (Promethazine HCl) 25 Mg Tablet 25 Mg PO Q6H PRN Instructions to patient/family Please see electronic discharge instructions given to patient. Clinical Quality Measures DVT/VTE Risk/Contraindication: Risk Factor Score Per Nursin RFS Level Per Nursing on Admit: 4+=Very High Copy Copies To 1: GLORY EUCEDA MD Problem Qualifiers (1) DKA (diabetic ketoacidoses): Diabetes mellitus type: type 2 Diabetes mellitus complication detail: without coma Qualified Codes: E11.10 - Type 2 diabetes mellitus with ketoacidosis without coma (2) Depression: Depression Type: major depressive disorder Major depression recurrence: unspecified whether recurrent Active/Remission status: remission status unspecified Qualified Codes: F32.9 - Major depressive disorder, single episode , unspecified OSMAR JEORME MD May 23, 2018 09:39
[2018-05-23] MEDS: HALOPERIDOL 2 MG (HALDOL) TABLET PO SCH (09:43)
--- NOTE | 2018-05-23 09:49 | Discharge Inst-Simple/Standard ---
Discharge Inst-Standard Discharge Medications New, Converted or Re-Newed RX: Transmitted to Pharmacy Patient Instructions/Follow Up Plan of Care/Instructions/FU: Please continue to take your medications as written. Please follow up with Dr Euceda and Dr Herndon in the next 1-2 weeks to follow up this hospital stay. Activity as Tolerated: Yes Discharge Diet: ADA Diet Return to The Hospital For: Inability to keep any food down, worsening abdominal pain, if you feel you are getting worse. OSMAR JEROME MD May 23, 2018 09:49
[2018-05-23] MEDS ORDERED: INSU100I14 SQ (09:55)
[2018-05-23] MEDS ORDERED: METO-333 PO (09:55)
[2018-05-23] MEDS ORDERED: SCOP1PAT17 TD (09:55)
[2018-05-23] MEDS ORDERED: INSU100I29 SQ (09:55)
[2018-05-23] MEDS ORDERED: LISI-552 PO (09:55)
== END 2018-05-23 13:00 | disposition home or self-care (01) | DRG 639 ==
LOC: ICU 16:26 → 4TH 05-20 12:56
PROVIDERS: ADMIT Internal Medicine; ATTEND Internal Medicine
PROC: 0DB78ZX Excision of Stomach, Pylorus, Via Natural or Artificial Opening Endoscopic, Diagnostic (ICD-10-PCS; principal; 2018-05-22 12:54)
DX: E11.10 Type 2 diabetes mellitus with ketoacidosis without coma (principal); J44.9 Chronic obstructive pulmonary disease, unspecified; R63.4 Abnormal weight loss; K21.0 Gastro-esophageal reflux disease with esophagitis; K29.70 Gastritis, unspecified, without bleeding; F41.9 Anxiety disorder, unspecified; F32.9 Major depressive disorder, single episode, unspecified; R11.2 Nausea with vomiting, unspecified; G47.33 Obstructive sleep apnea (adult) (pediatric); R10.13 Epigastric pain; E66.9 Obesity, unspecified; F25.9 Schizoaffective disorder, unspecified; I10 Essential (primary) hypertension; F17.200 Nicotine dependence, unspecified, uncomplicated; Z68.38 Body mass index [BMI] 38.0-38.9, adult; Z88.5 Allergy status to narcotic agent; Z88.2 Allergy status to sulfonamides; Z79.4 Long term (current) use of insulin
CPT/HCPCS: 36415; 71045; 80048; 81000; 82010; 82150; 82962; 83036; 83690; 83735; 84100; 85025; 85027; 87081

== ENCOUNTER → 2018-07-04 | Outpatient (CLI) | payer MEDICAID ==
[~2018-07-04] MED LIST: ACET-168 PO; INSU100I14 SQ; INSU100I29 SQ; IPRA3AMP31 IH; LEVO500T80 PO; LISI-552 PO; LISI10TA2 PO; METF750T2 PO; METO-333 PO; METO10TA3 PO; OMEP20CA12 PO; ONDA4TAB11 PO; POTA10CA43 PO; PROM25TA14 PO; RT-ALBUINH IH; SCOP1PAT17 TD; TRAM50TA2 PO; TRAZ150T72 PO; VENL150T PO
--- NOTE | 2018-07-04 16:00 | Diagnostic Imaging Report ---
CLINICAL INDICATION: Patient with low back pain and left hip pain and left leg pain. EXAM: MRI of the lumbar spine performed without IV contrast. Sagittal T2, sagittal T1, sagittal STIR, axial T1, and axial T2. COMPARISON: None. FINDINGS: Five lumbar type vertebra are identified. Lumbar spine has normal alignment with no fracture or dislocation. The lumbar vertebra have normal T1 and T2 signal. The visualized portions of the distal spinal cord, conus medullaris, and cauda equina have normal anatomic appearance. The conus medullaris tip is seen at the upper L1 vertebral body level. No paraspinal soft tissue abnormality is seen. There is a mild diffuse disc bulge at the T11-T12 level with minimal impression on the thecal sac anteriorly. There is no significant neural foramen narrowing. Otherwise, the lumbar spine shows no significant degenerative changes. There is no significant central spinal canal or neural foramen narrowing. There is no significant degenerative disease. The intervertebral disk spaces are well-preserved. IMPRESSION: 1: There is a T12 mild diffuse disc bulge which causes mild impression upon the thecal sac. 2: The remainder of the lumbar spine is unremarkable. Dictated by: Dictated on workstation # [id number]
== END ==
LOC: RAD 14:45
PROVIDERS: ATTEND Nurse Practitioner
DX: M51.24 Other intervertebral disc displacement, thoracic region (principal)
CPT/HCPCS: 72148

== ENCOUNTER → 2018-07-06 | Outpatient (CLI) | payer MEDICAID ==
--- NOTE | 2018-07-06 11:07 | Diagnostic Imaging Report ---
Clinical indication: Patient neck pain which is chronic and getting worse and having a hard time bending her neck. No injury. Exam: X-ray of the cervical spine, 5 views. Comparison: None. Findings: There is no acute fracture or dislocation. There is straightening of the cervical spine posture. There is mild to moderately hypertrophic anterior spurs at the C5-C6 level. There is no prevertebral soft tissue swelling. Intervertebral disc heights are well maintained. There is no significant bony neural foramen narrowing. Impression: Cervical spine degenerative disease most pronounced at C5-C6 level. Dictated by: Dictated on workstation # [id number]
== END ==
LOC: RAD FS 10:28
PROVIDERS: ATTEND Nurse Practitioner
DX: M50.322 Other cervical disc degeneration at C5-C6 level (principal)
CPT/HCPCS: 72050

== ENCOUNTER 2018-07-21 11:57 | Emergency (ER) | payer MEDICAID ==
[~2018-07-21] VITALS: Ht 157.5 cm; Wt 96.6 kg
[2018-07-21] MEDS ORDERED: NS IV 1000 ML 1,000 ML IV SCH (12:30)
[2018-07-21] MEDS ORDERED: diphenhydrAMINE 50 MG/ML INJ (BENADRYL) IVP ONE (12:30)
[2018-07-21 12:40] LABS: BILIRUBIN,URINE NEGATIVE (NEGATIVE); CLARITY,URINE SL CLOUDY; COLOR,URINE YELLOW; GLUCOSE, URINE (UA) 2+ (NEGATIVE); KETONES,URINE TRACE (NEGATIVE); LEUKOCYTE ESTERASE ,URINE NEGATIVE (NEGATIVE); NITRITE,URINE NEGATIVE (NEGATIVE); PROTEIN,URINE TRACE (NEGATIVE); UROBILINOGEN,URINE 0.2 MG/DL (NORMAL)
--- NOTE | 2018-07-21 12:44 | ED General ---
General Chief Complaint: Glucose Problems Stated Complaint: VOMITING; HYPERGLYCEMIA Nursing Triage Note: REPORTS HER BLOOD GLUCOSE WAS 437 @ 1020, SHE TOOK 14U AND IT WAS DOWN TO 332. REPORTS SHE HAS CHRONIC VOMITING AND PAIN WITH URINATION. WAS SEEN AT [facility] YESTERDAY. Nursing Sepsis Screen: No Definite Risk History of Present Illness Date Seen by Provider: Jul 21, 2018 Time Seen by Provider: 12:25 43-year-old female with a history of diabetes, gastroparesis, here with vomiting and abdominal cramping for 1 day, and elevated blood glucose this AM. 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 Normal bowel movements, no blood or melena. Emesis nonbilious nonbloody. No history of abdominal surgeries. No abdominal pain at this time, the abdominal cramping is left sided and does not radiate. Grossly normal urination. No vaginal bleeding or discharge. No headache or visual change or neurologic deficit. Had routine lab work done yesterday. Allergies and Home Medications Allergies Coded Allergies: adhesive tape (Verified Allergy, Unknown, 05/19/18) chlorhexidine (Verified Allergy, Unknown, 05/19/18) fluvoxamine (Verified Allergy, Unknown, 05/19/18) hydromorphone (Verified Allergy, Unknown, 05/19/18) latex (Verified Allergy, Unknown, 05/19/18) meperidine (Verified Allergy, Unknown, 05/19/18) morphine (Verified Allergy, Unknown, 05/19/18) sulfamethoxazole (Verified Allergy, Unknown, 05/19/18) trimethoprim (Verified Allergy, Unknown, 05/19/18) Home Medications Acetaminophen 500 Mg Tablet, 500 MG PO Q8H PRN for PAIN-BREAKTHROUGH, (Reported) Albuterol Sulfate 1 Puff Puff, 2 PUFF IH Q4H PRN for SHORTNESS OF BREATH, ( Reported) 1 PUFF = 90 MCG Insulin Aspart 300 Units/3 Ml Solution, 7 UNITS SQ AC Prescribed by: OSMAR JEROME on 05/23/18 0955 Insulin Detemir 100 Unit/1 Ml Insuln.pen, 20 UNIT SQ HS Prescribed by: OSMAR JEROME on 05/23/18 0955 Ipratropium/Albuterol Sulfate 3 Ml Ampul.neb, 3 ML IH Q4H PRN for SHORTNESS OF BREATH, (Reported) Lisinopril 20 Mg Tablet, 20 MG PO DAILY Prescribed by: OSMAR JEROME on 05/23/18954 Metformin HCl 750 Mg Tab.er.24h, 750 MG PO BID, (Reported) Metoclopramide HCl 10 Mg Tablet, 10 MG PO QID, (Reported) Metoprolol Tartrate 25 Mg Tablet, 12.5 MG PO BID Prescribed by: OSMAR JEROME on 05/23/18954 Omeprazole 20 Mg Capsule.dr, 20 MG PO HS, (Reported) Ondansetron 4 Mg Tab.rapdis, 4 MG PO Q4H PRN for NAUSEA/VOMITING-1ST LINE, ( Reported) Promethazine HCl 25 Mg Tablet, 25 MG PO Q6H PRN for NAUSEA/VOMITING, (Reported) Scopolamine 1 Each Patch.td.3, 1 EACH TD Q72H Prescribed by: OSMAR JEROME on 05/23/18954 Tramadol HCl 50 Mg Tablet, 50 MG PO Q6H PRN for PAIN-MILD, (Reported) Trazodone HCl 150 Mg Tablet, 300 MG PO HS, (Reported) Venlafaxine HCl 150 Mg Tab.er.24, 150 MG PO DAILY, (Reported) Patient Home Medication List Home Medication List Reviewed: Yes Review of Systems Review of Systems Constitutional: no symptoms reported EENTM: no symptoms reported Respiratory: no symptoms reported Cardiovascular: no symptoms reported Gastrointestinal: see HPI Genitourinary: no symptoms reported Musculoskeletal: no symptoms reported Skin: no symptoms reported Psychiatric/Neurological: No Symptoms Reported Hematologic/Lymphatic: No Symptoms Reported Immunological/Allergic: no symptoms reported Past Youvgmh-Eldxpg-Rgzjkm Hx Past Med/Social Hx: Reviewed Nursing Past Med/Soc Hx Patient Social History Recent Foreign Travel: No Contact w/Someone Who Travel: No Recent Infectious Disease Expo: No Recent Hopitalizations: No Immunizations Up To Date Date of Pneumonia Vaccine: May 19, 2015 Date of Influenza Vaccine: Mar 29, 2018 Seasonal Allergies Seasonal Allergies: Yes Past Medical History Respiratory: Yes Asthma Currently Using CPAP: Yes Currently Using BIPAP: No Cardiac: No Neurological: No Female 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 Disorders: Denies Sexually Transmitted Disease: No HIV/AIDS: No Genitourinary: No Gastrointestinal: Yes Gastroesophageal Reflux Musculoskeletal: No Endocrine: Yes HEENT: Yes (wears glasses) Hearing Impairment: Denies Cancer: No Psychosocial: Yes (schizoeffective disorder) Anxiety, Depression Integumentary: No Blood Disorders: No Physical Exam Vital Signs Vital Signs - First Documented 07/21/18 12:15 Temp 99.2 Pulse 91 Resp 16 B/P (MAP) 151/85 (107) Pulse Ox 96 O2 Delivery Room Air Capillary Refill : Less Than 3 Seconds Height, Weight, BMI Height: 5'2.00" Weight: 213lbs. 7.0oz. 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; No Abnormal Gait Skin: Other (warm, mild forehead diaphoresis) Progress/Results/Core Measures Suspected Sepsis Recent Fever Within 48 Hours: No Infection Criteria Present: None New/Unexplained Altered Menta: No Sepsis Screen: No Definite Risk SIRS Temperature:99.2 Pulse: 91 Respiratory Rate: 16 Laboratory Tests 07/21/18 12:37: White Blood Count 13.4H Blood Pressure 151 /85 Mean: 107 Laboratory Tests 07/21/18 12:37: Creatinine 0.65, Platelet Count 261, Total Bilirubin 0.4 Results/Orders Lab Results Laboratory Tests Test 07/21/18 12:09 07/21/18 12:17 07/21/18 12:37 Range/Units Glucometer 251 H 70-110 MG/DL Urine Color YELLOW Urine Clarity SL CLOUDY Urine pH 6.0 5-9 Urine Specific [place] 1.020 1.016-1.022 Urine Protein TRACE NEGATIVE Urine Glucose (UA) 2+ H NEGATIVE Urine Ketones TRACE H NEGATIVE Urine Nitrite NEGATIVE NEGATIVE Urine Bilirubin NEGATIVE NEGATIVE Urine Urobilinogen 0.2 NORMAL MG/DL Urine Leukocyte Esterase NEGATIVE NEGATIVE Urine RBC (Auto) NEGATIVE NEGATIVE Urine RBC NONE /HPF Urine WBC NONE /HPF Urine Squamous Epithelial Cells 10-25 H /HPF Urine Crystals NONE /LPF Urine Bacteria NONE /HPF Urine Casts NONE /LPF Urine Mucus NEGATIVE /LPF Urine Culture Indicated NO Urine Test NEGATIVE NEGATIVE White Blood Count 13.4 H 4.3-11.0 10^3/uL Red Blood Count 4.46 4.35-5.85 10^6/uL Hemoglobin 14.5 11.5-16.0 G/DL Hematocrit 41 35-52 % Mean Corpuscular Volume 92 80-99 FL Mean Corpuscular Hemoglobin 33 25-34 PG Mean Corpuscular Hemoglobin Concent 35 32-36 G/DL Red Cell Distribution Width 13.1 10.0-14.5 % Platelet Count 261 130-400 10^3/uL Mean Platelet Volume 10.9 H 7.4-10.4 FL Sodium Level 138 135-145 MMOL/L Potassium Level 4.4 3.6-5.0 MMOL/L Chloride Level 99 98-107 MMOL/L Carbon Dioxide Level 21 21-32 MMOL/L Anion Gap 18 H 5-14 MMOL/L Blood Urea Nitrogen 10 7-18 MG/DL Creatinine 0.65 0.60-1.30 MG/DL Estimat Glomerular Filtration Rate > 60 BUN/Creatinine Ratio 15 Glucose Level 240 H 70-105 MG/DL Calcium Level 9.7 8.5-10.1 MG/DL Corrected Calcium 9.6 8.5-10.1 MG/DL Total Bilirubin 0.4 0.1-1.0 MG/DL Aspartate Amino Transf (AST/SGOT) 32 5-34 U/L Alanine Aminotransferase (ALT/SGPT) 19 0-55 U/L Alkaline Phosphatase 64 40-136 U/L Troponin T < 6 <=10 NG/L Total Protein 7.7 6.4-8.2 GM/DL Albumin 4.1 3.2-4.5 GM/DL Lipase 154 H 8-78 U/L My Orders Orders - CHRISTINE DECKER DO Ekg Tracing (07/21/18 12:29) Ua Culture If Indicated (07/21/18 12:29) Cbc No Diff (07/21/18 12:29) Comprehensive Metabolic Panel (07/21/18 12:29) Lipase (07/21/18 12:29) Hcg,Qualitative Urine (07/21/18 12:29) Troponin T (07/21/18 12:29) Ns Iv 1000 Ml (Sodium Chloride 0.9%) (07/21/18 12:30) Diphenhydramine Injection (Benadryl Inje (3/29/19 12:30) Ondansetron Injection (Zofran Injectio (07/21/18 12:55) Medications Given in ED Current Medications Medications Dose Ordered Sig/Ashley Route Start Time Stop Time Status Last Admin Dose Admin Diphenhydramine HCl 25 mg ONCE ONCE IVP 07/21/18 12:30 07/21/18 12:35 DC 07/21/18 12:45 25 MG Vital Signs/I&O 07/21/18 07/21/18 12:15 13:46 Temp 99.2 98.3 Pulse 91 82 Resp 16 16 B/P (MAP) 151/85 (107) 132/60 (84) Pulse Ox 96 99 O2 Delivery Room Air Room Air Capillary Refill : Less Than 3 Seconds Blood Pressure Mean: 107 Progress Note #1: Progress Note This is a 43-year-old female with a history of diabetes and gastroparesis who presents with hyperglycemia, already resolved prior to arrival after self administration of insulin, as well as vomiting which patient states is a chronic issue for her. We'll check basic labs including urinalysis and culture, give fluids, we will give IV antiemetic medication. We'll check an ECG given low risk that this represents atypical ACS as well as to check intervals given patient's medications. Abdominal exam is benign imaging not indicated. Progress Note #2: Progress Note Patient feels better and is asking to go home. Tolerating oral intake. Follow- up with primary care physician, return if worse. Departure Impression Primary Impression: Vomiting Additional Impressions: Elevated lipase Hyperglycemia Disposition: HOME, SELF-CARE Condition: Stable Departure-Patient Inst. Referrals: SELF,GLORY VEGA (PCP/Family) Primary Care Physician Patient Instructions: Hyperglycemia, Adult Work/School Note: Work Release Form Date Seen in the Emergency Department: Jul 21, 2018 Return to Work: Jul 24, 2018 Restrictions: No Restrictions CHRISTINE DECKER DO Jul 21, 2018 12:44
[2018-07-21 12:48] LABS: HEMOGLOBIN 14.5 G/DL (11.5-16.0); MEAN PLATELET VOLUME 10.9 FL (7.4-10.4); RED CELL DISTRIBUTION WIDTH 13.1 % (10.0-14.5); WHITE BLOOD COUNT 13.4 10^3/uL (4.3-11.0)
[2018-07-21] MEDS ORDERED: ONDANSETRON 4 MG/2 ML (SDV) Z0FRAN IVP STA (12:55)
[2018-07-21 13:04] LABS: CARBON DIOXIDE 21 MMOL/L (21-32); CHLORIDE 99 MMOL/L (98-107); POTASSIUM 4.4 MMOL/L (3.6-5.0); SODIUM 138 MMOL/L (135-145)
[2018-07-21 13:05] LABS: ALANINE AMINOTRANSFERASE 19 U/L (0-55); ALBUMIN 4.1 GM/DL (3.2-4.5); ALKALINE PHOSPHATASE 64 U/L (40-136); BILIRUBIN,TOTAL 0.4 MG/DL (0.1-1.0); BUN/CREATININE RATIO 15; CALCIUM 9.7 MG/DL (8.5-10.1); CREATININE SERUM 0.65 MG/DL (0.60-1.30); GFR ESTIMATED > 60; GLUCOSE 240 MG/DL (70-105); LIPASE 154 U/L (8-78); TOTAL PROTEIN 7.7 GM/DL (6.4-8.2)
--- NOTE | 2018-07-21 13:19 | NUR ---
PT PROVIDED WITH APPLE JUICE FOR A FLUID CHALLENGE.
[2018-07-21 13:46] VITALS: BP 132/60
== END 2018-07-21 13:49 | disposition home or self-care (01) ==
LOC: EDUNIT# 11:57 → ER FS 12:00
DX: E11.65 Type 2 diabetes mellitus with hyperglycemia (principal); R11.10 Vomiting, unspecified; R74.8 Abnormal levels of other serum enzymes; E11.43 Type 2 diabetes mellitus with diabetic autonomic (poly)neuropathy; K31.84 Gastroparesis; J45.909 Unspecified asthma, uncomplicated; K21.9 Gastro-esophageal reflux disease without esophagitis; F41.9 Anxiety disorder, unspecified; F32.9 Major depressive disorder, single episode, unspecified; F25.9 Schizoaffective disorder, unspecified; Z91.048 Other nonmedicinal substance allergy status; Z88.8 Allergy status to other drugs, medicaments and biological substances; Z88.5 Allergy status to narcotic agent; Z88.2 Allergy status to sulfonamides; Z79.4 Long term (current) use of insulin
CPT/HCPCS: 36415; 80053; 81000; 82962; 83690; 84484; 84703; 85027; 93005; 96361; 96374; 96375

== ENCOUNTER 2018-07-24 08:31 | Emergency (ER) | payer MEDICAID ==
[~2018-07-24] VITALS: Ht 157.5 cm; Wt 96.6 kg
[2018-07-24] MEDS ORDERED: NS IV 1000 ML 1,000 ML IV STA (09:16)
--- NOTE | 2018-07-24 09:26 | ED Abdominal Pain ---
General Chief Complaint: Abdominal/GI Problems Stated Complaint: VOMITING; FACIAL SWELLING Nursing Triage Note: Patient reports she was seen in ED on Tuesday for nausea and vomiting, states her lipase was slightly elevated. States she has not kept anything down for 2 days, blood glucose has been 300-400 at home, also reports generalized facial swelling, rash to face and arms bilaterally, and pain and swelling from IV site on Tuesday. Sepsis Screen: No Definite Risk Source of Information: Patient Exam Limitations: No Limitations History of Present Illness Date Seen by Provider: Jul 24, 2018 Time Seen by Provider: 09:11 Initial Comments Here with report of nausea and vomiting over the past few days. States that she is not able to keep anything down. She does have history of gastroparesis and typically has vomiting problems. Notes that her blood sugars been difficult to manage over the last several days. She has been using standard sliding scale at home. Also reports that she's got facial swelling and redness that she is not sure about. Does admit allergies and stuffiness that seems to be worsening. Also complains of some mild pain to the IV site to the left wrist area. Timing/Duration: 2-3 Days, Other (chronic) Severity/Quality: Mild, Moderate, Cramping Location: Generalized Abdomen Radiation: No Radiation Activities at Onset: None Modifying Factors: Worsens With Eating; Improves With Resting Associated Symptoms: No Chest Pain, No Fever/Chills; Nausea/Vomiting; No Shortness of Air, No Weakness Allergies and Home Medications Allergies Coded Allergies: adhesive tape (Verified Allergy, Unknown, 05/19/18) chlorhexidine (Verified Allergy, Unknown, 05/19/18) fluvoxamine (Verified Allergy, Unknown, 05/19/18) hydromorphone (Verified Allergy, Unknown, 05/19/18) latex (Verified Allergy, Unknown, 05/19/18) meperidine (Verified Allergy, Unknown, 05/19/18) morphine (Verified Allergy, Unknown, 05/19/18) sulfamethoxazole (Verified Allergy, Unknown, 05/19/18) trimethoprim (Verified Allergy, Unknown, 05/19/18) Home Medications Acetaminophen 500 Mg Tablet, 500 MG PO Q8H PRN for PAIN-BREAKTHROUGH, (Reported) Albuterol Sulfate 1 Puff Puff, 2 PUFF IH Q4H PRN for SHORTNESS OF BREATH, ( Reported) 1 PUFF = 90 MCG Cefdinir 300 Mg Capsule, 300 MG PO BID Prescribed by: NIK ESCOBAR on 07/24/18 1049 Insulin Aspart 300 Units/3 Ml Solution, 7 UNITS SQ AC Prescribed by: OSMAR JEROME on 05/23/18 09 Insulin Detemir 100 Unit/1 Ml Insuln.pen, 20 UNIT SQ HS Prescribed by: OSMAR JEROME on 05/23/18 09 Ipratropium/Albuterol Sulfate 3 Ml Ampul.neb, 3 ML IH Q4H PRN for SHORTNESS OF BREATH, (Reported) Lisinopril 20 Mg Tablet, 20 MG PO DAILY Prescribed by: OSMAR JEROME on 05/23/18 09 Metformin HCl 750 Mg Tab.er.24h, 750 MG PO BID, (Reported) Metoclopramide HCl 10 Mg Tablet, 10 MG PO QID, (Reported) Metoprolol Tartrate 25 Mg Tablet, 12.5 MG PO BID Prescribed by: OSMAR JEROME on 05/23/18 09 Omeprazole 20 Mg Capsule.dr, 20 MG PO HS, (Reported) Ondansetron 4 Mg Tab.rapdis, 4 MG PO Q4H PRN for NAUSEA/VOMITING-1ST LINE, ( Reported) Promethazine HCl 25 Mg Tablet, 25 MG PO Q6H PRN for NAUSEA/VOMITING, (Reported) Scopolamine 1 Each Patch.td.3, 1 EACH TD Q72H Prescribed by: OSMAR JEROME on 05/23/18954 Tramadol HCl 50 Mg Tablet, 50 MG PO Q6H PRN for PAIN-MILD, (Reported) Trazodone HCl 150 Mg Tablet, 300 MG PO HS, (Reported) Venlafaxine HCl 150 Mg Tab.er.24, 150 MG PO DAILY, (Reported) Patient Home Medication List Home Medication List Reviewed: Yes Review of Systems Review of Systems Constitutional: see HPI; No chills, No fever EENTM: See HPI, Ear Pain (fullness), Nose Congestion; No Throat Pain Respiratory: Denies Cough, Denies Shortness of Air Cardiovascular: Denies Chest Pain, Denies Edema Gastrointestinal: Abdominal Pain, Nausea, Vomiting Genitourinary: No Symptoms Reported Musculoskeletal: no symptoms reported Skin: see HPI Psychiatric/Neurological: No Symptoms Reported Endocrine: See HPI All Other Systems Reviewed Negative Unless Noted: Yes Past Qznzlak-Ihuwvs-Mdqhyq Hx Past Med/Social Hx: Reviewed Nursing Past Med/Soc Hx Patient Social History Alcohol Use: Denies Use Recreational Drug Use: No Smoking Status: Current Everyday Smoker Recent Foreign Travel: No Contact w/Someone Who Travel: No Recent Infectious Disease Expo: No Recent Hopitalizations: No Immunizations Up To Date Date of Pneumonia Vaccine: May 19, 2015 Date of Influenza Vaccine: Mar 29, 2018 Seasonal Allergies Seasonal Allergies: Yes Past Medical History Surgeries: Yes Gallbladder, Hysterectomy, Orthopedic Respiratory: Yes Asthma Currently Using CPAP: Yes Currently Using BIPAP: No Cardiac: No Neurological: No 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 7.0oz. 96.467857vm; 38.1 BMI Method:Stated General Appearance: WD/WN, no apparent distress HEENT: PERRL/EOMI, pharyngeal erythema, other (bilateral nasal congestion with erythema. Bilateral puffiness to the cheeks) Neck: full range of motion, supple Respiratory: lungs clear, normal breath sounds Cardiovascular: regular rate, rhythm, no murmur Gastrointestinal: non tender, soft Extremities: non-tender, normal inspection Back: normal inspection, no CVA tenderness, no vertebral tenderness Neurologic/Psychiatric: alert, oriented x 3 Skin: normal color, warm/dry Progress/Results/Core Measures Results/Orders Lab Results Laboratory Tests Test 07/24/18 09:35 Range/Units White Blood Count 13.7 H 4.3-11.0 10^3/uL Red Blood Count 4.53 4.35-5.85 10^6/uL Hemoglobin 14.8 11.5-16.0 G/DL Hematocrit 43 35-52 % Mean Corpuscular Volume 92 80-99 FL Mean Corpuscular Hemoglobin 33 25-34 PG Mean Corpuscular Hemoglobin Concent 36 32-36 G/DL Red Cell Distribution Width 13.0 10.0-14.5 % Platelet Count 237 130-400 10^3/uL Mean Platelet Volume 10.6 H 7.4-10.4 FL Neutrophils (%) (Auto) 81 H 42-75 % Lymphocytes (%) (Auto) 11 L 12-44 % Monocytes (%) (Auto) 6 0-12 % Eosinophils (%) (Auto) 1 0-10 % Basophils (%) (Auto) 0 0-10 % Neutrophils # (Auto) 11.1 H 1.8-7.8 X 10^3 Lymphocytes # (Auto) 1.6 1.0-4.0 X 10^3 Monocytes # (Auto) 0.8 0.0-1.0 X 10^3 Eosinophils # (Auto) 0.1 0.0-0.3 10^3/uL Basophils # (Auto) 0.1 0.0-0.1 10^3/uL Sodium Level 136 135-145 MMOL/L Potassium Level 4.6 3.6-5.0 MMOL/L Chloride Level 99 98-107 MMOL/L Carbon Dioxide Level 24 21-32 MMOL/L Anion Gap 13 5-14 MMOL/L Blood Urea Nitrogen 8 7-18 MG/DL Creatinine 0.64 0.60-1.30 MG/DL Estimat Glomerular Filtration Rate > 60 BUN/Creatinine Ratio 13 Glucose Level 267 H 70-105 MG/DL Calcium Level 9.5 8.5-10.1 MG/DL Corrected Calcium 8.5-10.1 MG/DL Total Bilirubin 0.4 0.1-1.0 MG/DL Aspartate Amino Transf (AST/SGOT) 26 5-34 U/L Alanine Aminotransferase (ALT/SGPT) 17 0-55 U/L Alkaline Phosphatase 62 40-136 U/L Total Protein 7.4 6.4-8.2 GM/DL Albumin 4.0 3.2-4.5 GM/DL Lipase 184 H 8-78 U/L My Orders Orders - NIK ESCOBAR MD Cbc With Automated Diff (07/24/18 09:16) Comprehensive Metabolic Panel (07/24/18 09:16) Lipase (07/24/18 09:16) Ondansetron Injection (Zofran Injectio (07/24/18 09:30) Ns Iv 1000 Ml (Sodium Chloride 0.9%) (07/24/18 09:16) Saline Lock/Iv-Start (07/24/18 09:16) Insulin (Regular) Human (Humulin R (Per (07/24/18 10:38) Ondansetron Injection (Zofran Injectio (07/24/18 10:45) Medications Given in ED Current Medications Medications Dose Ordered Sig/Ashley Route Start Time Stop Time Status Last Admin Dose Admin Ondansetron HCl 4 mg ONCE ONCE IVP 07/24/18 09:30 07/24/18 09:31 DC 07/24/18 09:38 4 MG Ondansetron HCl 4 mg ONCE ONCE IVP 07/24/18 10:45 07/24/18 10:46 DC 07/24/18 10:55 4 MG Vital Signs/I&O 07/24/18 08:54 Temp 96.3 Pulse 86 Resp 16 B/P (MAP) 145/83 (103) Pulse Ox 96 O2 Delivery Room Air Blood Pressure Mean: 103 Progress Progress Note : Progress Note Seen and evaluated. IV and labs ordered. Normal saline 1 L bolus. Zofran 4 mg IV ordered. Monitor patient. 1045: Insulin 6 units subcutaneous ordered. Patient is nauseated so I will repeat Zofran 4 mg IV. Labs consistent with previous. Blood sugar only 267. We'll initiate outpatient treatment for probable sinusitis given her symptoms and difficulty with blood sugar control. She agrees. She has everything she needs for nausea and vomiting at home. Discharge home with return precautions. Patient verbalize understanding instructions and agreement with plan. Departure Impression Primary Impression: Sinusitis, acute maxillary Qualified Codes: J01.00 - Acute maxillary sinusitis, unspecified Additional Impressions: Hyperglycemia Nausea and vomiting Qualified Codes: R11.2 - Nausea with vomiting, unspecified Epigastric abdominal pain Disposition: HOME, SELF-CARE Condition: Stable Departure-Patient Inst. Decision time for Depature: 10:48 Referrals: SELF,GLORY VEGA (PCP/Family) Primary Care Physician Patient Instructions: Acute Abdomen (Belly Pain), Adult (DC), Hyperglycemia, Adult (DC), Nausea and Vomiting, Adult (DC), Sinusitis, Adult (DC) Add. Discharge Instructions: All discharge instructions reviewed with patient and/or family. Voiced understanding. Take medications as directed. Clear liquid diet for the next 24 hours and then advance as tolerated. Follow-up with your doctor this week for recheck. Return for worse pain, fever, vomiting, weakness, rhythm problems or other concerns as needed. Scripts Cefdinir (Cefdinir) 300 Mg Capsule 300 MG PO BID, #20 CAP 0 Refills Prov: NIK ESCOBAR MD 07/24/18 NIK ESCOBAR MD Jul 24, 2018 09:26
[2018-07-24] MEDS ORDERED: ONDANSETRON 4 MG/2 ML (SDV) Z0FRAN IVP ONE ×2 (09:30→10:45)
[2018-07-24 09:51] LABS: HEMATOCRIT 43 % (35-52); HEMOGLOBIN 14.8 G/DL (11.5-16.0); MEAN CORPUSCULAR HEMOGLOBIN 33 PG (25-34); MEAN CORPUSCULAR HGB CONC 36 G/DL (32-36); MEAN CORPUSCULAR VOLUME 92 FL (80-99); WHITE BLOOD COUNT 13.7 10^3/uL (4.3-11.0)
[2018-07-24 09:52] LABS: BASOPHILS # (AUTO) 0.1 10^3/uL (0.0-0.1); BASOPHILS % (AUTO) 0 % (0-10); EOSINOPHILS # (AUTO) 0.1 10^3/uL (0.0-0.3); EOSINOPHILS % (AUTO) 1 % (0-10); LYMPHOCYTES # (AUTO) 1.6 X 10^3 (1.0-4.0); LYMPHOCYTES % (AUTO) 11 % (12-44); MEAN PLATELET VOLUME 10.6 FL (7.4-10.4); MONOCYTES # (AUTO) 0.8 X 10^3 (0.0-1.0); MONOCYTES % (AUTO) 6 % (0-12); NEUTROPHILS # (AUTO) 11.1 X 10^3 (1.8-7.8); NEUTROPHILS % (AUTO) 81 % (42-75); PLATELET COUNT 237 10^3/uL (130-400)
[2018-07-24 10:19] LABS: ALANINE AMINOTRANSFERASE 17 U/L (0-55); ALKALINE PHOSPHATASE 62 U/L (40-136); BILIRUBIN,TOTAL 0.4 MG/DL (0.1-1.0); BUN/CREATININE RATIO 13; CALCIUM 9.5 MG/DL (8.5-10.1); CARBON DIOXIDE 24 MMOL/L (21-32); CHLORIDE 99 MMOL/L (98-107); CREATININE SERUM 0.64 MG/DL (0.60-1.30); GFR ESTIMATED > 60; GLUCOSE 267 MG/DL (70-105); POTASSIUM 4.6 MMOL/L (3.6-5.0); SODIUM 136 MMOL/L (135-145); TOTAL PROTEIN 7.4 GM/DL (6.4-8.2)
[2018-07-24 10:20] LABS: LIPASE 184 U/L (8-78)
[2018-07-24] MEDS ORDERED: inSUlin (REGULAR) HUMAN 1 UNIT/0.01 ML (CHARGE PER UNIT) SC STA (10:38)
[2018-07-24] MEDS ORDERED: CEFD300C3 PO (10:49)
[2018-07-24 11:12] VITALS: BP 142/83
== END 2018-07-24 11:12 | disposition home or self-care (01) ==
LOC: EDUNIT# 08:31 → ER FS 08:33
DX: J01.00 Acute maxillary sinusitis, unspecified (principal); R73.9 Hyperglycemia, unspecified; R11.2 Nausea with vomiting, unspecified; R10.13 Epigastric pain; K31.84 Gastroparesis; J45.909 Unspecified asthma, uncomplicated; K21.9 Gastro-esophageal reflux disease without esophagitis; F41.9 Anxiety disorder, unspecified; F32.9 Major depressive disorder, single episode, unspecified; F25.9 Schizoaffective disorder, unspecified; F17.200 Nicotine dependence, unspecified, uncomplicated; Z91.048 Other nonmedicinal substance allergy status; Z88.8 Allergy status to other drugs, medicaments and biological substances; Z91.040 Latex allergy status; Z90.710 Acquired absence of both cervix and uterus; Z88.2 Allergy status to sulfonamides; Z88.5 Allergy status to narcotic agent; Z79.4 Long term (current) use of insulin; Z79.84 Long term (current) use of oral hypoglycemic drugs
CPT/HCPCS: 36415; 80053; 83690; 85025; 96361; 96372; 96374; 96376

== ENCOUNTER 2018-07-29 08:11 | Emergency (ER) | payer MEDICAID ==
[~2018-07-29] VITALS: Ht 157.5 cm; Wt 98.0 kg
[~2018-07-29 08:11] MED LIST changes: +CEFD300C3 PO
[2018-07-29] MEDS ORDERED: NS IV 1000 ML 1,000 ML IV SCH ×2 (08:45→10:30)
[2018-07-29] MEDS ORDERED: ONDANSETRON 4 MG/2 ML (SDV) Z0FRAN IVP ONE (08:45)
--- NOTE | 2018-07-29 08:53 | ED Abdominal Pain ---
General Chief Complaint: Abdominal/GI Problems Stated Complaint: VOMITING Nursing Triage Note: vomiting x 1 week. Has diabetes and hx of gastroparesis. states blood sugars have been elevated up to 600 in the past week. last night was 200. Sepsis Screen: No Definite Risk Source of Information: Patient Exam Limitations: No Limitations History of Present Illness Date Seen by Provider: Jul 29, 2018 Time Seen by Provider: 08:48 Initial Comments This 43-year-old white female presents with a history of vomiting and epigastric pain for the past week. Patient is a diabetic and suffers from gastroparesis. She's had a history of pancreatitis. The patient states that her glucose on Tuesday had been 600. She self- administered insulin and by the time she arrived in this emergency department her glucose was down to 300. We were able to treat the patient with IV fluids and she was able to go home. The patient has continued to have intermittent nausea vomiting and abdominal pain. Her glucose was 200 last night. Patient states that she has not been eating well. She denies associated fever, chills, hematemesis or black or tarry stools. The patient has had no associated dysuria or frequency. Patient is status post cholecystectomy. Allergies and Home Medications Allergies Coded Allergies: adhesive tape (Verified Allergy, Unknown, 07/29/18) chlorhexidine (Verified Allergy, Unknown, 07/29/18) fluvoxamine (Verified Allergy, Unknown, 07/29/18) hydromorphone (Verified Allergy, Unknown, 07/29/18) latex (Verified Allergy, Unknown, 07/29/18) meperidine (Verified Allergy, Unknown, 07/29/18) morphine (Verified Allergy, Unknown, 05/19/18) sulfamethoxazole (Verified Allergy, Unknown, 05/19/18) trimethoprim (Verified Allergy, Unknown, 05/19/18) Home Medications Acetaminophen 500 Mg Tablet, 500 MG PO Q8H PRN for PAIN-BREAKTHROUGH, (Reported) Albuterol Sulfate 1 Puff Puff, 2 PUFF IH Q4H PRN for SHORTNESS OF BREATH, ( Reported) 1 PUFF = 90 MCG Cefdinir 300 Mg Capsule, 300 MG PO BID Prescribed by: NIK ESCOBAR on 07/24/18 1049 Insulin Aspart 300 Units/3 Ml Solution, 7 UNITS SQ AC Prescribed by: OSMAR JEROME on 1/29/19 0955 Insulin Detemir 100 Unit/1 Ml Insuln.pen, 20 UNIT SQ HS Prescribed by: OSMAR JEROME on 05/23/18954 Ipratropium/Albuterol Sulfate 3 Ml Ampul.neb, 3 ML IH Q4H PRN for SHORTNESS OF BREATH, (Reported) Lisinopril 20 Mg Tablet, 20 MG PO DAILY Prescribed by: OSMAR JEROME on 05/23/18954 Metformin HCl 750 Mg Tab.er.24h, 750 MG PO BID, (Reported) Metoclopramide HCl 10 Mg Tablet, 10 MG PO QID, (Reported) Metoprolol Tartrate 25 Mg Tablet, 12.5 MG PO BID Prescribed by: OSMAR JEROME on 05/23/18954 Omeprazole 20 Mg Capsule.dr, 20 MG PO HS, (Reported) Ondansetron 4 Mg Tab.rapdis, 4 MG PO Q4H PRN for NAUSEA/VOMITING-1ST LINE, ( Reported) Promethazine HCl 25 Mg Tablet, 25 MG PO Q6H PRN for NAUSEA/VOMITING, (Reported) Scopolamine 1 Each Patch.td.3, 1 EACH TD Q72H Prescribed by: OSMAR JEROME on 05/23/18954 Tramadol HCl 50 Mg Tablet, 50 MG PO Q6H PRN for PAIN-MILD, (Reported) Trazodone HCl 150 Mg Tablet, 300 MG PO HS, (Reported) Venlafaxine HCl 150 Mg Tab.er.24, 150 MG PO DAILY, (Reported) Patient Home Medication List Home Medication List Reviewed: Yes Review of Systems Review of Systems Constitutional: No chills EENTM: No Blurred Vision Respiratory: Denies Cough Cardiovascular: Denies Chest Pain Gastrointestinal: Abdominal Pain; Denies Diarrhea; Nausea; Denies Rectal Bleeding; Vomiting Genitourinary: Denies Burning, Denies Frequency Musculoskeletal: No back pain Skin: No rash Psychiatric/Neurological: No Symptoms Reported Endocrine: No Symptoms Reported Hematologic/Lymphatic: No Symptoms Reported Past [id number]-[id number]-Nlejcz Hx Past Med/Social Hx: Reviewed Nursing Past Med/Soc Hx Patient Social History Alcohol Use: Denies Use Recreational Drug Use: No Type Used: Cigarettes 2nd Hand Smoke Exposure: Yes Recent Foreign Travel: No Contact w/Someone Who Travel: No Recent Infectious Disease Expo: No Recent Hopitalizations: No Physical Abuse: No Sexual Abuse: No Mistreated: No Immunizations Up To Date Date of Pneumonia Vaccine: May 19, 2015 Date of Influenza Vaccine: Mar 29, 2018 Seasonal Allergies Seasonal Allergies: Yes Past Medical History Surgeries: Yes (knee and ankle surgery) Gallbladder, Hysterectomy, Orthopedic Respiratory: Yes Asthma Currently Using CPAP: Yes Currently Using BIPAP: No Cardiac: No Neurological: No Female 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 Disorders: Denies [employer] History: Hysterectomy Sexually Transmitted Disease: No HIV/AIDS: No Genitourinary: No Gastrointestinal: Yes (Gastroparesis; Hepatitis C) Gastroesophageal Reflux Musculoskeletal: No Endocrine: Yes Diabetes, Insulin dep HEENT: Yes (wears glasses) Hearing Impairment: Denies Cancer: No Psychosocial: Yes (schizoeffective disorder) Anxiety, Depression Integumentary: No Blood Disorders: No Physical Exam Vital Signs Vital Signs - First Documented 07/29/18 08:22 Temp 98.3 Pulse 67 Resp 26 B/P (MAP) 180/96 (124) Pulse Ox 97 Capillary Refill : Less Than 3 Seconds Height/Weight/BMI Height: 5'2.00" Weight: 216lbs. 7.0oz. 97.450869xc; 38.1 BMI Method:Stated General Appearance: WD/WN, mild distress HEENT: normal ENT inspection Neck: full range of motion, supple Respiratory: lungs clear, normal breath sounds Cardiovascular: regular rate, rhythm Gastrointestinal: normal bowel sounds, soft, tenderness (in the epigastric area ) Extremities: normal range of motion, non-tender, normal inspection Back: normal inspection Neurologic/Psychiatric: no motor/sensory deficits, alert, normal mood/affect, oriented x 3 Skin: normal color, warm/dry Progress/Results/Core Measures Results/Orders Lab Results Laboratory Tests Test 07/29/18 08:53 07/29/18 08:58 Range/Units White Blood Count 13.3 H 4.3-11.0 10^3/uL Red Blood Count 4.38 4.35-5.85 10^6/uL Hemoglobin 14.3 11.5-16.0 G/DL Hematocrit 40 35-52 % Mean Corpuscular Volume 92 80-99 FL Mean Corpuscular Hemoglobin 33 25-34 PG Mean Corpuscular Hemoglobin Concent 36 32-36 G/DL Red Cell Distribution Width 13.0 10.0-14.5 % Platelet Count 246 130-400 10^3/uL Mean Platelet Volume 10.0 7.4-10.4 FL Neutrophils (%) (Auto) 83 H 42-75 % Lymphocytes (%) (Auto) 10 L 12-44 % Monocytes (%) (Auto) 6 0-12 % Eosinophils (%) (Auto) 1 0-10 % Basophils (%) (Auto) 0 0-10 % Neutrophils # (Auto) 11.0 H 1.8-7.8 X 10^3 Lymphocytes # (Auto) 1.3 1.0-4.0 X 10^3 Monocytes # (Auto) 0.8 0.0-1.0 X 10^3 Eosinophils # (Auto) 0.1 0.0-0.3 10^3/uL Basophils # (Auto) 0.0 0.0-0.1 10^3/uL Sodium Level 138 135-145 MMOL/L Potassium Level 3.8 3.6-5.0 MMOL/L Chloride Level 101 98-107 MMOL/L Carbon Dioxide Level 17 L 21-32 MMOL/L Anion Gap 20 H 5-14 MMOL/L Blood Urea Nitrogen 11 7-18 MG/DL Creatinine 0.73 0.60-1.30 MG/DL Estimat Glomerular Filtration Rate > 60 BUN/Creatinine Ratio 15 Glucose Level 284 H 70-105 MG/DL Calcium Level 9.0 8.5-10.1 MG/DL Corrected Calcium 9.0 8.5-10.1 MG/DL Total Bilirubin 0.5 0.1-1.0 MG/DL Aspartate Amino Transf (AST/SGOT) 100 H 5-34 U/L Alanine Aminotransferase (ALT/SGPT) 28 0-55 U/L Alkaline Phosphatase 49 40-136 U/L Total Protein 7.0 6.4-8.2 GM/DL Albumin 4.0 3.2-4.5 GM/DL Lipase 42 8-78 U/L Glucometer 271 H 70-110 MG/DL My Orders Orders - REGINA ROBLES MD Lipase (07/29/18 08:42) Comprehensive Metabolic Panel (07/29/18 08:42) Cbc With Automated Diff (07/29/18 08:42) Acute Abd Series (07/29/18 08:42) Ondansetron Injection (Zofran Injectio (07/29/18 08:45) Ns Iv 1000 Ml (Sodium Chloride 0.9%) (07/29/18 08:45) Glucose (07/29/18 08:42) Promethazine Injection (Phenergan Injec (07/29/18 09:15) Fentanyl Injection (Sublimaze Injection (07/29/18 09:45) Ns Iv 1000 Ml (Sodium Chloride 0.9%) (07/29/18 10:30) Lidocaine 2% Viscous 15 Ml (Xylocaine Vi (07/29/18 10:45) Antacid Suspension (Mylanta Suspension (07/29/18 10:45) Medications Given in ED Current Medications Medications Dose Ordered Sig/Ashley Route Start Time Stop Time Status Last Admin Dose Admin Al Hydrox/Mg Hydrox/Simethicone 30 ml ONCE ONCE PO 07/29/18 10:45 07/29/18 10:46 DC 07/29/18 10:41 30 ML Fentanyl Citrate 50 mcg ONCE ONCE IVP 07/29/18 09:45 07/29/18 09:46 DC 07/29/18 09:45 50 MCG Lidocaine HCl 5 ml ONCE ONCE PO 07/29/18 10:45 07/29/18 10:46 DC 07/29/18 10:41 5 ML Ondansetron HCl 4 mg ONCE ONCE IVP 07/29/18 08:45 07/29/18 08:46 DC 07/29/18 08:57 4 MG Promethazine HCl 25 mg ONCE ONCE IVP 07/29/18 09:15 07/29/18 09:16 DC 07/29/18 09:22 25 MG Vital Signs/I&O 07/29/18 08:22 Temp 98.3 Pulse 67 Resp 26 B/P (MAP) 180/96 (124) Pulse Ox 97 Blood Pressure Mean: 124 Progress Progress Note : Time: 10:37 Progress Note The patient's laboratory evaluation demonstrated a normal amylase. The patient' s glucose was approximately 250. Remainder the lab was essentially unremarkable. Treatment course: Patient received IV Zofran without significant improvement in her nausea and subsequently was given 25 mg of Phenergan with good relief of her nausea. Patient received 2 L of normal saline IV. Her abdominal pain responded well to 50 g of fentanyl. Patient was able to sleep quietly in the emergency department. Patient complained of sore throat from her frequent vomiting. She was given a GI cocktail. 10:56 am Patient felt much better and was ready for discharge. I discussed her lab findings and sent her with a script for Phenergan for nausea. Departure Impression Primary Impression: Nausea and vomiting Qualified Codes: R11.2 - Nausea with vomiting, unspecified Disposition: HOME, SELF-CARE Condition: Improved Departure-Patient Inst. Decision time for Depature: 10:59 Referrals: SELFGLORY MD (PCP/Family) Primary Care Physician Patient Instructions: Nausea and Vomiting, Adult Add. Discharge Instructions: Phenergan for nausea. Check your blood sugars frequently. Follow-up with your doctor on Tuesday. Return if any problems or questions. All discharge instructions reviewed with patient and/or family. Voiced understanding. REGINA ROBLES MD Jul 29, 2018 08:53
[2018-07-29 09:00] LABS: BASOPHILS % (AUTO) 0 % (0-10); EOSINOPHILS % (AUTO) 1 % (0-10); HEMATOCRIT 40 % (35-52); HEMOGLOBIN 14.3 G/DL (11.5-16.0); LYMPHOCYTES % (AUTO) 10 % (12-44); MEAN CORPUSCULAR HEMOGLOBIN 33 PG (25-34); MEAN CORPUSCULAR HGB CONC 36 G/DL (32-36); MEAN CORPUSCULAR VOLUME 92 FL (80-99); MONOCYTES % (AUTO) 6 % (0-12); NEUTROPHILS % (AUTO) 83 % (42-75); PLATELET COUNT 246 10^3/uL (130-400); WHITE BLOOD COUNT 13.3 10^3/uL (4.3-11.0)
[2018-07-29 09:01] LABS: EOSINOPHILS # (AUTO) 0.1 10^3/uL (0.0-0.3); LYMPHOCYTES # (AUTO) 1.3 X 10^3 (1.0-4.0); MONOCYTES # (AUTO) 0.8 X 10^3 (0.0-1.0)
[2018-07-29] MEDS ORDERED: PROMETHAZINE INJ 25 MG/ML (PHENERGAN) AMP IVP ONE (09:15)
[2018-07-29 09:22] LABS: ALANINE AMINOTRANSFERASE 28 U/L (0-55); ALKALINE PHOSPHATASE 49 U/L (40-136); BILIRUBIN,TOTAL 0.5 MG/DL (0.1-1.0); BUN/CREATININE RATIO 15; CARBON DIOXIDE 17 MMOL/L (21-32); CHLORIDE 101 MMOL/L (98-107); CREATININE SERUM 0.73 MG/DL (0.60-1.30); GFR ESTIMATED > 60; GLUCOSE 284 MG/DL (70-105); LIPASE 42 U/L (8-78); POTASSIUM 3.8 MMOL/L (3.6-5.0); SODIUM 138 MMOL/L (135-145)
--- NOTE | 2018-07-29 09:33 | Diagnostic Imaging Report ---
EXAMINATION: Abdominal radiographs, acute series. DATE: July 29, 2018. CLINICAL INDICATION: 43-year-old female, left-sided abdominal pain. Nausea and vomiting. COMPARISON: None. COMMENTS: Heart size and mediastinal contours are unremarkable. There is no identified pneumothorax. There is no large pleural effusion. There is no identified focal airspace consolidation. There is no identified free intraperitoneal air. Right upper quadrant surgical clips likely relate to prior cholecystectomy. There is transitional lumbosacral anatomy. There are no abnormally distended gas-filled segments of bowel. There is no identified abnormal radiodensity overlying the kidneys or expected locations of the ureters. IMPRESSION: 1. No identified acute abdominal radiographic abnormality. 2. No identified acute cardiopulmonary abnormality. Dictated by: Dictated on workstation # [id number]
[2018-07-29] MEDS ORDERED: fentaNYL INJECTION 100 MCG/2 ML AMP IVP ONE (09:45)
--- NOTE | 2018-07-29 10:26 | NUR ---
Patient has been resting with eyes closed. States she is feeling better.
[2018-07-29] MEDS ORDERED: LIDOCAINE 2% VISCOUS 15 ML UDC PO ONE (10:45)
[2018-07-29] MEDS ORDERED: ANTACID SUSP 30 ML UDC (MYLANTA) PO ONE (10:45)
[2018-07-29 11:06] VITALS: BP 156/80
== END 2018-07-29 11:09 | disposition home or self-care (01) ==
LOC: EDUNIT# 08:11 → ER FS 08:13
DX: R11.2 Nausea with vomiting, unspecified (principal); E11.43 Type 2 diabetes mellitus with diabetic autonomic (poly)neuropathy; K31.84 Gastroparesis; J45.909 Unspecified asthma, uncomplicated; B19.20 Unspecified viral hepatitis C without hepatic coma; F25.9 Schizoaffective disorder, unspecified; F31.9 Bipolar disorder, unspecified; F41.9 Anxiety disorder, unspecified; Z87.19 Personal history of other diseases of the digestive system; Z90.49 Acquired absence of other specified parts of digestive tract; Z91.048 Other nonmedicinal substance allergy status; Z88.5 Allergy status to narcotic agent; Z91.040 Latex allergy status; Z88.2 Allergy status to sulfonamides; Z88.8 Allergy status to other drugs, medicaments and biological substances; Z79.4 Long term (current) use of insulin; Z77.22 Contact with and (suspected) exposure to environmental tobacco smoke (acute) (chronic); Z90.710 Acquired absence of both cervix and uterus; Z98.890 Other specified postprocedural states
CPT/HCPCS: 36415; 74022; 80053; 82962; 83690; 85025; 96361; 96374; 96375

== ENCOUNTER 2018-08-09 14:03 | Emergency (ER) | payer MEDICAID ==
[~2018-08-09] VITALS: Ht 157.5 cm; Wt 98.0 kg
--- OUTSIDE RECORDS SUMMARY | 2018-08-09 14:12 | XMS REPORT | Continuity of Care Document ---
Author Organization Unknown Address Unknown Allergies There is no data. Medications There is no data. Problems There is no data. Procedures There is no data. Results Test Result Range LIPID PANEL - 07/20/18 10:12 CHOLESTEROL, TOTAL 124 mg/dL <200 HDL CHOLESTEROL 34 mg/dL >50 TRIGLYCERIDES 114 mg/dL <150 LDL-CHOLESTEROL 70 mg/dL (calc) NRG CHOL/HDLC RATIO 3.6 (calc) <5.0 NON HDL CHOLESTEROL 90 mg/dL (calc) <130 CMP - 07/20/18 10:12 GLUCOSE 176 mg/dL 65-99 UREA NITROGEN (BUN) 9 mg/dL 7-25 CREATININE 0.79 mg/dL 0.50-1.10 eGFR NON-AFR. NAURUAN 92 mL/min/1.73m2 > OR=60 eGFR 106 mL/min/1.73m2 > OR=60 BUN/CREATININE RATIO NOT APPLICABLE (calc) 6-22 SODIUM 141 mmol/L 135-146 POTASSIUM 4.1 mmol/L 3.5-5.3 CHLORIDE 107 mmol/L 98-110 CARBON DIOXIDE 20 mmol/L 20-32 CALCIUM 9.3 mg/dL 8.6-10.2 PROTEIN, TOTAL 6.8 g/dL 6.1-8.1 ALBUMIN 4.2 g/dL 3.6-5.1 GLOBULIN 2.6 g/dL (calc) 1.9-3.7 ALBUMIN/GLOBULIN RATIO 1.6 (calc) 1.0-2.5 BILIRUBIN, TOTAL 0.3 mg/dL 0.2-1.2 ALKALINE PHOSPHATASE 58 U/L 33-115 AST 23 U/L 10-30 ALT 19 U/L 6-29 CBC - 07/20/18 10:12 WHITE BLOOD CELL COUNT 12.4 Thousand/uL 3.8-10.8 RED BLOOD CELL COUNT 4.63 Million/uL 3.80-5.10 HEMOGLOBIN 15.1 g/dL 11.7-15.5 HEMATOCRIT 43.7 % 35.0-45.0 MCV 94.4 fL 80.0-100.0 MCH 32.6 pg 27.0-33.0 MCHC 34.6 g/dL 32.0-36.0 RDW 13.1 % 11.0-15.0 PLATELET COUNT 242 Thousand/uL 140-400 MPV 11.0 fL 7.5-12.5 ABSOLUTE NEUTROPHILS 9684 cells/uL 3821-3564 ABSOLUTE LYMPHOCYTES 1934 cells/uL 850-3900 ABSOLUTE MONOCYTES 620 cells/uL 200-950 ABSOLUTE EOSINOPHILS 112 cells/uL 15-500 ABSOLUTE BASOPHILS 50 cells/uL 0-200 NEUTROPHILS 78.1 % NRG LYMPHOCYTES 15.6 % NRG MONOCYTES 5.0 % NRG EOSINOPHILS 0.9 % NRG BASOPHILS 0.4 % NRG TSH - 07/20/18 10:12 TSH 2.54 mIU/L NRG CMP - 08/07/18 12:00 GLUCOSE 292 mg/dL 65-139 UREA NITROGEN (BUN) 8 mg/dL 7-25 CREATININE 0.82 mg/dL 0.50-1.10 eGFR NON-AFR. NAURUAN 88 mL/min/1.73m2 > OR=60 eGFR 102 mL/min/1.73m2 > OR=60 BUN/CREATININE RATIO NOT APPLICABLE (calc) 6-22 SODIUM 136 mmol/L 135-146 POTASSIUM 3.9 mmol/L 3.5-5.3 CHLORIDE 104 mmol/L 98-110 CARBON DIOXIDE 21 mmol/L 20-32 CALCIUM 9.8 mg/dL 8.6-10.2 PROTEIN, TOTAL 7.4 g/dL 6.1-8.1 ALBUMIN 4.3 g/dL 3.6-5.1 GLOBULIN 3.1 g/dL (calc) 1.9-3.7 ALBUMIN/GLOBULIN RATIO 1.4 (calc) 1.0-2.5 BILIRUBIN, TOTAL 0.5 mg/dL 0.2-1.2 ALKALINE PHOSPHATASE 55 U/L 33-115 AST 28 U/L 10-30 ALT 21 U/L 6-29 CBC w/MANUAL DIFF - 08/07/18 12:00 WHITE BLOOD CELL COUNT 10.7 Thousand/uL 3.8-10.8 RED BLOOD CELL COUNT 4.82 Million/uL 3.80-5.10 HEMOGLOBIN 15.5 g/dL 11.7-15.5 HEMATOCRIT 44.7 % 35.0-45.0 MCV 92.7 fL 80.0-100.0 MCH 32.2 pg 27.0-33.0 MCHC 34.7 g/dL 32.0-36.0 RDW 13.0 % 11.0-15.0 PLATELET COUNT 203 Thousand/uL 140-400 MPV 10.5 fL 7.5-12.5 ABSOLUTE NEUTROPHILS 8453 cells/uL 6402-1056 ABSOLUTE MONOCYTES 428 cells/uL 200-950 ABSOLUTE EOSINOPHILS 214 cells/uL 15-500 ABSOLUTE BASOPHILS 0 cells/uL 0-200 NEUTROPHILS 79.0 % NRG LYMPHOCYTES 13.0 % NRG MONOCYTES 4.0 % NRG EOSINOPHILS 2.0 % NRG BASOPHILS 0 % NRG ABSOLUTE BAND NEUTROPHILS 214 cells/uL 0-750 ABSOLUTE LYMPHOCYTES 1391 cells/uL 850-3900 BAND NEUTROPHILS 2.0 % NRG PLATELET ESTIMATION ADEQUATE ADEQUATE CBC MORPHOLOGY NORMAL BETA-HYDROXYBUTYRATE - 08/07/18 12:00 BETA-HYDROXYBUTYRATE NRG Encounters ACCT No. Visit Date/Time Discharge Status Pt. Type Provider Facility Loc./Unit Complaint [id number] 08/07/2018 12:00:00 Document Registration [id number] 08/07/2018 12:00:00 [facility] [id number] 07/20/2018 09:00:00 Document Registration
--- NOTE | 2018-08-09 14:22 | ED Abdominal Pain ---
General Chief Complaint: Abdominal/GI Problems Stated Complaint: ABD PAIN/VOMITING ELEV BS Source of Information: Patient Exam Limitations: No Limitations History of Present Illness Date Seen by Provider: Aug 09, 2018 Time Seen by Provider: 14:21 43 y/o F with history of gastroparesis due to diabetes, history of THC use in the past presents with worsening chronic vomiting over the past 2 weeks. Has period of relief about every 2-3 weeks where she is able to tolerate her meds then food. Has had difficulty controlling her blood sugars at home (154 here). Has a non-productive cough, no SOB. LUQ, epigastric and RUQ cramping pain that is non-radiating, slightly improved after vomiting. Allergies and Home Medications Allergies Coded Allergies: adhesive tape (Verified Allergy, Unknown, 07/29/18) chlorhexidine (Verified Allergy, Unknown, 07/29/18) fluvoxamine (Verified Allergy, Unknown, 07/29/18) hydromorphone (Verified Allergy, Unknown, 07/29/18) latex (Verified Allergy, Unknown, 07/29/18) meperidine (Verified Allergy, Unknown, 07/29/18) morphine (Verified Allergy, Unknown, 05/19/18) sulfamethoxazole (Verified Allergy, Unknown, 05/19/18) trimethoprim (Verified Allergy, Unknown, 05/19/18) Home Medications Acetaminophen 500 Mg Tablet, 500 MG PO Q8H PRN for PAIN-BREAKTHROUGH, (Reported) Albuterol Sulfate 1 Puff Puff, 2 PUFF IH Q4H PRN for SHORTNESS OF BREATH, ( Reported) 1 PUFF = 90 MCG Cefdinir 300 Mg Capsule, 300 MG PO BID Prescribed by: NIK ESCOBAR on 07/24/18 1049 Insulin Aspart 300 Units/3 Ml Solution, 7 UNITS SQ AC Prescribed by: OSMAR JEROME on 05/23/18 0955 Insulin Detemir 100 Unit/1 Ml Insuln.pen, 20 UNIT SQ HS Prescribed by: OSMAR JEROME on 05/23/18 0955 Ipratropium/Albuterol Sulfate 3 Ml Ampul.neb, 3 ML IH Q4H PRN for SHORTNESS OF BREATH, (Reported) Lisinopril 20 Mg Tablet, 20 MG PO DAILY Prescribed by: OSMAR JEROME on 05/23/18 0955 Metformin HCl 750 Mg Tab.er.24h, 750 MG PO BID, (Reported) Metoclopramide HCl 10 Mg Tablet, 10 MG PO QID, (Reported) Metoprolol Tartrate 25 Mg Tablet, 12.5 MG PO BID Prescribed by: OSMAR JEROME on 05/23/18 09 Omeprazole 20 Mg Capsule.dr, 20 MG PO HS, (Reported) Ondansetron 4 Mg Tab.rapdis, 4 MG PO Q4H PRN for NAUSEA/VOMITING-1ST LINE, ( Reported) Promethazine HCl 25 Mg Tablet, 25 MG PO Q6H PRN for NAUSEA/VOMITING, (Reported) Promethazine HCl 50 Mg Supp.rect, 50 MG RC Q6H PRN for NAUSEA/VOMITING-2ND LINE Prescribed by: IVANA RODRIGUEZ on 08/09/18 1548 Scopolamine 1 Each Patch.td.3, 1 EACH TD Q72H Prescribed by: OSMAR JEROME on 05/23/18 09 Tramadol HCl 50 Mg Tablet, 50 MG PO Q6H PRN for PAIN-MILD, (Reported) Trazodone HCl 150 Mg Tablet, 300 MG PO HS, (Reported) Venlafaxine HCl 150 Mg Tab.er.24, 150 MG PO DAILY, (Reported) Patient Home Medication List Home Medication List Reviewed: Yes Review of Systems Review of Systems Constitutional: chills; No fever; weakness EENTM: No Blurred Vision, No Double Vision Respiratory: Cough; Denies Shortness of Air Cardiovascular: Denies Chest Pain, Denies Edema Gastrointestinal: Abdominal Pain; Denies Diarrhea; Nausea, Vomiting Genitourinary: Denies Burning, Denies Drainage, Denies Flank Pain Musculoskeletal: No back pain, No joint pain, No muscle pain, No muscle stiffness Skin: No lesions, No rash Psychiatric/Neurological: Denies Numbness, Denies Paresthesia; Weakness Past Idwkjjf-Lsbbxg-Iqpoer Hx Past Med/Social Hx: Reviewed Nursing Past Med/Soc Hx Patient Social History Alcohol Use: Denies Use Recreational Drug Use: No Smoking Status: Current Everyday Smoker Type Used: Cigarettes 2nd Hand Smoke Exposure: Yes Recent Foreign Travel: No Contact w/Someone Who Travel: No Recent Hopitalizations: No Immunizations Up To Date Date of Pneumonia Vaccine: May 19, 2015 Date of Influenza Vaccine: Mar 29, 2018 Seasonal Allergies Seasonal Allergies: Yes Past Medical History Surgeries: Yes (knee and ankle surgery) Gallbladder, Hysterectomy, Orthopedic Respiratory: Yes Asthma Currently Using CPAP: Yes Currently Using BIPAP: No Cardiac: No Neurological: No 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 7.0oz. 97.479354yg; 38.1 BMI Method:Stated General Appearance: WD/WN, no apparent distress, obese HEENT: PERRL/EOMI, normal ENT inspection Neck: non-tender, full range of motion, supple Respiratory: chest non-tender, lungs clear, normal breath sounds, no respiratory distress, no accessory muscle use Cardiovascular: regular rate, rhythm, no edema, no gallop, no JVD, no murmur Gastrointestinal: normal bowel sounds, soft, no organomegaly, no pulsatile mass , tenderness (greatest in LUQ) Extremities: normal range of motion, non-tender, normal inspection, no pedal edema, no calf tenderness, normal capillary refill Back: no CVA tenderness, no vertebral tenderness Neurologic/Psychiatric: alert, normal mood/affect, oriented x 3 Skin: normal color, warm/dry Progress/Results/Core Measures Results/Orders Lab Results Laboratory Tests Test 08/09/18 14:20 08/09/18 14:44 08/09/18 14:50 08/09/18 14:57 Range/Units Glucometer 154 H 70-110 MG/DL Urine Color YELLOW Urine Clarity SLT CLOUDY Urine pH 6.5 5-9 Urine Specific [place] <-1.005 1.016-1.022 Urine Protein NEGATIVE NEGATIVE Urine Glucose (UA) NEGATIVE NEGATIVE Urine Ketones NEGATIVE NEGATIVE Urine Nitrite NEGATIVE NEGATIVE Urine Bilirubin NEGATIVE NEGATIVE Urine Urobilinogen 0.2 NORMAL MG/DL Urine Leukocyte Esterase NEGATIVE NEGATIVE Urine RBC (Auto) NEGATIVE NEGATIVE Urine RBC NONE /HPF Urine WBC 0-2 /HPF Urine Squamous Epithelial Cells 10-25 H /HPF Urine Crystals NONE /LPF Urine Bacteria TRACE /HPF Urine Casts NONE /LPF Urine Mucus NONE /LPF Urine Culture Indicated NO Sodium Level 140 135-145 MMOL/L Potassium Level 3.9 3.6-5.0 MMOL/L Chloride Level 103 98-107 MMOL/L Carbon Dioxide Level 22 21-32 MMOL/L Anion Gap 15 H 5-14 MMOL/L Blood Urea Nitrogen 8 7-18 MG/DL Creatinine 0.75 0.60-1.30 MG/DL Estimat Glomerular Filtration Rate > 60 BUN/Creatinine Ratio 11 Glucose Level 163 H 70-105 MG/DL Calcium Level 10.1 8.5-10.1 MG/DL Corrected Calcium 9.8 8.5-10.1 MG/DL Total Bilirubin 0.7 0.1-1.0 MG/DL Aspartate Amino Transf (AST/SGOT) 29 5-34 U/L Alanine Aminotransferase (ALT/SGPT) 22 0-55 U/L Alkaline Phosphatase 62 40-136 U/L Total Protein 7.8 6.4-8.2 GM/DL Albumin 4.4 3.2-4.5 GM/DL Lipase 82 H 8-78 U/L White Blood Count 11.3 H 4.3-11.0 10^3/uL Red Blood Count 4.93 4.35-5.85 10^6/uL Hemoglobin 15.9 11.5-16.0 G/DL Hematocrit 45 35-52 % Mean Corpuscular Volume 91 80-99 FL Mean Corpuscular Hemoglobin 32 25-34 PG Mean Corpuscular Hemoglobin Concent 35 32-36 G/DL Red Cell Distribution Width 13.0 10.0-14.5 % Platelet Count 244 130-400 10^3/uL Mean Platelet Volume 10.3 7.4-10.4 FL Neutrophils (%) (Auto) 72 42-75 % Lymphocytes (%) (Auto) 20 12-44 % Monocytes (%) (Auto) 6 0-12 % Eosinophils (%) (Auto) 1 0-10 % Basophils (%) (Auto) 0 0-10 % Neutrophils # (Auto) 8.2 H 1.8-7.8 X 10^3 Lymphocytes # (Auto) 2.3 1.0-4.0 X 10^3 Monocytes # (Auto) 0.7 0.0-1.0 X 10^3 Eosinophils # (Auto) 0.1 0.0-0.3 10^3/uL Basophils # (Auto) 0.0 0.0-0.1 10^3/uL Serum Test, Qualitative NEGATIVE NEGATIVE Urine Opiates Screen NEGATIVE NEGATIVE Urine Oxycodone Screen NEGATIVE NEGATIVE Urine Methadone Screen NEGATIVE NEGATIVE Urine Propoxyphene Screen NEGATIVE NEGATIVE Urine Barbiturates Screen NEGATIVE NEGATIVE Ur Tricyclic Antidepressants Screen NEGATIVE NEGATIVE Urine Phencyclidine Screen NEGATIVE NEGATIVE Urine Amphetamines Screen NEGATIVE NEGATIVE Urine Methamphetamines Screen NEGATIVE NEGATIVE Urine Benzodiazepines Screen NEGATIVE NEGATIVE Urine Cocaine Screen NEGATIVE NEGATIVE Urine Cannabinoids Screen POSITIVE H NEGATIVE My Orders Orders - IVANA RODRIGUEZ MD Comprehensive Metabolic Panel (08/09/18 14:32) Lipase (08/09/18 14:32) Ua Culture If Indicated (08/09/18 14:32) Hcg,Qualitative Serum (08/09/18 14:32) Ed Iv/Invasive Line Start (08/09/18 14:32) Cbc With Automated Diff (08/09/18 14:32) D5 Ns 1000 Ml Iv Solution (Dextrose 5%/0 (08/09/18 14:45) Chest 1 View Ap/Pa Only (08/09/18 14:32) Haloperidol Injection (Haldol Injectio (08/09/18 14:45) Prochlorperazine Injection (Compazine In (08/09/18 14:45) Diphenhydramine Injection (Benadryl Inje (08/09/18 14:45) Drug Screen Stat (Urine) (08/09/18 14:57) Medications Given in ED Current Medications Medications Dose Ordered Sig/Ashley Route Start Time Stop Time Status Last Admin Dose Admin Diphenhydramine HCl 25 mg ONCE ONCE IM 08/09/18 14:45 08/09/18 14:46 DC 08/09/18 14:50 25 MG Haloperidol Lactate 5 mg ONCE ONCE IM 08/09/18 14:45 08/09/18 14:46 DC 08/09/18 14:45 5 MG Prochlorperazine Edisylate 10 mg ONCE ONCE IV 08/09/18 14:45 08/09/18 14:46 DC 08/09/18 14:50 10 MG Vital Signs/I&O 08/09/18 08/09/18 14:10 16:05 Temp 97.6 Pulse 79 78 Resp 16 18 B/P (MAP) 162/86 (111) 121/68 (85) Pulse Ox 95 98 O2 Delivery Room Air Progress Progress Note #1: Time: 15:43 Progress Note feeling better. would like to try ice chips. 500 cc of IVF left to infuse. Discussed results of work-up, rx, plan, all questions answered. Progress Note #2: Progress Note tolerates PO challenge. feeling better, would like to go home. Departure Impression Primary Impression: Hyperemesis Additional Impression: Diabetic gastroparesis Disposition: HOME, SELF-CARE Condition: Improved Departure-Patient Inst. Decision time for Depature: 15:50 Referrals: GLORY LINARES MD (PCP/Family) Primary Care Physician Patient Instructions: Gastroparesis (Delayed Gastric Emptying) (DC), Nausea and Vomiting, Adult (DC) Add. Discharge Instructions: All discharge instructions reviewed with patient and/or family. Voiced understanding. Scripts Promethazine HCl (Phenergan) 50 Mg Supp.rect 50 MG RC Q6H PRN for NAUSEA/VOMITING-2ND LINE for 10 Days, #10 SUPP.RECT 0 Refills Prov: IVANA RODRIGUEZ MD 08/09/18 IVANA RODRIGUEZ MD Aug 09, 2018 14:22
[2018-08-09] MEDS ORDERED: HALOPERIDOL 5 MG/ML (HALDOL) AMP IM ONE (14:45)
[2018-08-09] MEDS ORDERED: D5 NS 1000 ML IV SOLUTION 1,000 ML IV SCH (14:45)
[2018-08-09] MEDS ORDERED: diphenhydrAMINE 50 MG/ML INJ (BENADRYL) IM ONE (14:45)
[2018-08-09] MEDS ORDERED: PROCHLORPERAZINE 10 MG/2ML INJ (COMPAZINE) IV ONE (14:45)
--- NOTE | 2018-08-09 14:58 | NUR ---
PT STATES THE ONLY RELIEF SHE HAS IS WHEN SHE IS IN A HOT SHOWER
[2018-08-09 15:11] LABS: HEMATOCRIT 45 % (35-52); HEMOGLOBIN 15.9 G/DL (11.5-16.0); MEAN CORPUSCULAR HEMOGLOBIN 32 PG (25-34); MEAN CORPUSCULAR VOLUME 91 FL (80-99); WHITE BLOOD COUNT 11.3 10^3/uL (4.3-11.0)
[2018-08-09 15:12] LABS: BASOPHILS % (AUTO) 0 % (0-10); EOSINOPHILS % (AUTO) 1 % (0-10); LYMPHOCYTES % (AUTO) 20 % (12-44); MEAN CORPUSCULAR HGB CONC 35 G/DL (32-36); MEAN PLATELET VOLUME 10.3 FL (7.4-10.4); MONOCYTES % (AUTO) 6 % (0-12); NEUTROPHILS % (AUTO) 72 % (42-75); PLATELET COUNT 244 10^3/uL (130-400)
--- NOTE | 2018-08-09 15:12 | Diagnostic Imaging Report ---
INDICATION: Abdominal pain. EXAMINATION: Portable chest at 2:43 PM. FINDINGS: The heart size and pulmonary vascularity are normal. The lungs are clear. There are no effusions or pneumothoraces. IMPRESSION: Negative chest. Dictated by: Dictated on workstation # [id number]
[2018-08-09 15:13] LABS: EOSINOPHILS # (AUTO) 0.1 10^3/uL (0.0-0.3); LYMPHOCYTES # (AUTO) 2.3 X 10^3 (1.0-4.0); MONOCYTES # (AUTO) 0.7 X 10^3 (0.0-1.0); NEUTROPHILS # (AUTO) 8.2 X 10^3 (1.8-7.8)
[2018-08-09 15:20] LABS: AMPHETAMINE SCREEN, URINE NEGATIVE (NEGATIVE); BARBITURATE SCREEN URINE NEGATIVE (NEGATIVE); BENZODIAZEPINES SCREEN URINE NEGATIVE (NEGATIVE); CANNABINOID SCREEN, URINE POSITIVE (NEGATIVE); COCAINE SCREEN URINE NEGATIVE (NEGATIVE); METHADONE STAT NEGATIVE (NEGATIVE); METHAMPHETAMINE SCREEN URINE S NEGATIVE (NEGATIVE); OPIATE SCREEN URINE NEGATIVE (NEGATIVE); OXYCODONE STAT NEGATIVE (NEGATIVE); PROPOXYPHENE STAT NEGATIVE (NEGATIVE); TRICYCLIC ANTIDEPRESSANTS SCRE NEGATIVE (NEGATIVE)
[2018-08-09 15:20] LABS: CLARITY,URINE SLT CLOUDY; COLOR,URINE YELLOW; PH,URINE 6.5 (5-9)
[2018-08-09 15:21] LABS: BACTERIA,URINE TRACE /HPF; BILIRUBIN,URINE NEGATIVE (NEGATIVE); GLUCOSE, URINE (UA) NEGATIVE (NEGATIVE); KETONES,URINE NEGATIVE (NEGATIVE); LEUKOCYTE ESTERASE ,URINE NEGATIVE (NEGATIVE); NITRITE,URINE NEGATIVE (NEGATIVE); PROTEIN,URINE NEGATIVE (NEGATIVE); UROBILINOGEN,URINE 0.2 MG/DL (NORMAL); WBC,URINE 0-2 /HPF
--- NOTE | 2018-08-09 15:27 | NUR ---
RESTING IN BED ET DENIES NEEDS AT THIS TIME. STATES SHE FEELS BETTER.
[2018-08-09 15:29] LABS: ALANINE AMINOTRANSFERASE 22 U/L (0-55); ALBUMIN 4.4 GM/DL (3.2-4.5); ALKALINE PHOSPHATASE 62 U/L (40-136); BILIRUBIN,TOTAL 0.7 MG/DL (0.1-1.0); BUN/CREATININE RATIO 11; CALCIUM 10.1 MG/DL (8.5-10.1); CARBON DIOXIDE 22 MMOL/L (21-32); CHLORIDE 103 MMOL/L (98-107); CREATININE SERUM 0.75 MG/DL (0.60-1.30); GFR ESTIMATED > 60; GLUCOSE 163 MG/DL (70-105); LIPASE 82 U/L (8-78); POTASSIUM 3.9 MMOL/L (3.6-5.0); SODIUM 140 MMOL/L (135-145); TOTAL PROTEIN 7.8 GM/DL (6.4-8.2)
[2018-08-09] MEDS ORDERED: PROM50SU10 RC (15:48)
--- NOTE | 2018-08-09 15:50 | NUR ---
ICE CHIPS GIVEN.
--- NOTE | 2018-08-09 15:53 | NUR ---
UP TO BATHROOM.
[2018-08-09 16:05] VITALS: BP 121/68
== END 2018-08-09 16:05 | disposition home or self-care (01) ==
LOC: EDUNIT# 14:03 → ER FS 14:08
DX: R11.10 Vomiting, unspecified (principal); E11.43 Type 2 diabetes mellitus with diabetic autonomic (poly)neuropathy; K31.84 Gastroparesis; K21.9 Gastro-esophageal reflux disease without esophagitis; J45.909 Unspecified asthma, uncomplicated; F41.9 Anxiety disorder, unspecified; F32.9 Major depressive disorder, single episode, unspecified; F25.9 Schizoaffective disorder, unspecified; B19.20 Unspecified viral hepatitis C without hepatic coma; F17.210 Nicotine dependence, cigarettes, uncomplicated; Z91.048 Other nonmedicinal substance allergy status; Z90.710 Acquired absence of both cervix and uterus; Z91.040 Latex allergy status; Z88.5 Allergy status to narcotic agent; Z88.2 Allergy status to sulfonamides; Z88.8 Allergy status to other drugs, medicaments and biological substances; Z79.4 Long term (current) use of insulin
CPT/HCPCS: 36415; 71045; 80053; 80306; 81000; 82962; 83690; 84703; 85025

== ENCOUNTER 2018-09-22 15:46 | Emergency (ER) | payer MEDICAID ==
[~2018-09-22] VITALS: Ht 157.5 cm; Wt 90.7 kg
[~2018-09-22 15:46] MED LIST changes: +PROM50SU10 RC
[2018-09-22 16:57] LABS: HEMATOCRIT 39 % (35-52); HEMOGLOBIN 13.7 G/DL (11.5-16.0); LYMPHOCYTES % (AUTO) 19 % (12-44); MEAN CORPUSCULAR HEMOGLOBIN 33 PG (25-34); MEAN CORPUSCULAR HGB CONC 35 G/DL (32-36); MEAN CORPUSCULAR VOLUME 94 FL (80-99); MEAN PLATELET VOLUME 10.5 FL (7.4-10.4); MONOCYTES % (AUTO) 8 % (0-12); NEUTROPHILS % (AUTO) 72 % (42-75); PLATELET COUNT 201 10^3/uL (130-400)
[2018-09-22 16:58] LABS: BASOPHILS % (AUTO) 0 % (0-10); EOSINOPHILS # (AUTO) 0.1 10^3/uL (0.0-0.3); EOSINOPHILS % (AUTO) 1 % (0-10); LYMPHOCYTES # (AUTO) 1.9 X 10^3 (1.0-4.0); MONOCYTES # (AUTO) 0.8 X 10^3 (0.0-1.0); NEUTROPHILS # (AUTO) 7.2 X 10^3 (1.8-7.8)
--- NOTE | 2018-09-22 16:58 | ED Abdominal Pain ---
General Chief Complaint: Abdominal/GI Problems Stated Complaint: VOMITING; BLOOD SUGAR ISSUES Nursing Triage Note: PATIENT C/O NAUSEA,VOMITING, ABDOMINAL PAIN, AND POOR GLYCEMIC CONTROL. STATES SHE HAS BEEN VOMITNG FOR THE PAST 3 DAYS AND HAS BEEN UNABLE TO KEEP ANY FLUIDS/FOOD DOWN WHICH IS AFFECTING HER BLOOD SUGARS. Sepsis Screen: No Definite Risk History of Present Illness Date Seen by Provider: September 22, 2018 Time Seen by Provider: 16:30 Initial Comments This is a 43 y/o f with pmhx significant for DMII gastric paresis who presents to the ED for evaluation of intractable nausea/vomiting. Reports progressive vomiting over the past 3 days. Feels that her BS has been difficult to control 2/2 vomiting. Had a low of 54 this am. Last ate a salad for lunch and administered 10U of NovoLog. Last required hospitalization for symptom control approx. Reports diffuse abdominal pain which is typical for previous exacerbations. No GI bleed symptoms. no fever. +flatus. Not doing a liquid diet. Symptoms previously controlled on Scopolamine patch Allergies and Home Medications Allergies Coded Allergies: adhesive tape (Verified Allergy, Unknown, 07/29/18) chlorhexidine (Verified Allergy, Unknown, 07/29/18) fluvoxamine (Verified Allergy, Unknown, 07/29/18) hydromorphone (Verified Allergy, Unknown, 07/29/18) latex (Verified Allergy, Unknown, 07/29/18) meperidine (Verified Allergy, Unknown, 07/29/18) morphine (Verified Allergy, Unknown, 05/19/18) sulfamethoxazole (Verified Allergy, Unknown, 05/19/18) trimethoprim (Verified Allergy, Unknown, 05/19/18) Home Medications Acetaminophen 500 Mg Tablet, 500 MG PO Q8H PRN for PAIN-BREAKTHROUGH, (Reported) Albuterol Sulfate 1 Puff Puff, 2 PUFF IH Q4H PRN for SHORTNESS OF BREATH, (Reported) 1 PUFF = 90 MCG Cefdinir 300 Mg Capsule, 300 MG PO BID Prescribed by: NIK ESCOBAR on 07/24/18 1049 Insulin Aspart 300 Units/3 Ml Solution, 7 UNITS SQ AC Prescribed by: OSMAR JEROME on 05/23/18 0955 Insulin Detemir 100 Unit/1 Ml Insuln.pen, 20 UNIT SQ HS Prescribed by: OSMAR JEROME on 05/23/18 0955 Ipratropium/Albuterol Sulfate 3 Ml Ampul.neb, 3 ML IH Q4H PRN for SHORTNESS OF BREATH, (Reported) Lisinopril 20 Mg Tablet, 20 MG PO DAILY Prescribed by: OSMAR JEROME on 05/23/18 09 Metformin HCl 750 Mg Tab.er.24h, 750 MG PO BID, (Reported) Metoclopramide HCl 10 Mg Tablet, 10 MG PO QID, (Reported) Metoprolol Tartrate 25 Mg Tablet, 12.5 MG PO BID Prescribed by: OSMAR JEROME on 05/23/18 09 Omeprazole 20 Mg Capsule.dr, 20 MG PO HS, (Reported) Ondansetron 4 Mg Tab.rapdis, 4 MG PO Q4H PRN for NAUSEA/VOMITING-1ST LINE, (Reported) Promethazine HCl 25 Mg Tablet, 25 MG PO Q6H PRN for NAUSEA/VOMITING, (Reported) Promethazine HCl 50 Mg Supp.rect, 50 MG RC Q6H PRN for NAUSEA/VOMITING-2ND LINE Prescribed by: IVANA RODRIGUEZ on 08/09/18 1548 Scopolamine 1 Each Patch.td.3, 1 EACH TD Q72H Prescribed by: OSMAR JEROME on 05/23/18 09 Tramadol HCl 50 Mg Tablet, 50 MG PO Q6H PRN for PAIN-MILD, (Reported) Trazodone HCl 150 Mg Tablet, 300 MG PO HS, (Reported) Venlafaxine HCl 150 Mg Tab.er.24, 150 MG PO DAILY, (Reported) Patient Home Medication List Home Medication List Reviewed: Yes Review of Systems Review of Systems Constitutional: No chills, No fever, No weakness Respiratory: No Symptoms Reported; Denies Shortness of Air, Denies Stridor, Denies Wheezing Cardiovascular: Denies Chest Pain, Denies Edema, Denies Palpitations, Denies Syncope Gastrointestinal: Abdomen Distended, Abdominal Pain; Denies Constipated, Denies Diarrhea, Denies Difficulty Swallowing; Nausea, Vomiting Genitourinary: Denies Discharge, Denies Frequency, Denies Flank Pain, Denies Hematuria, Denies Pain, Denies Urgency Musculoskeletal: no symptoms reported; No back pain, No joint pain Skin: No rash Hematologic/Lymphatic: No Symptoms Reported All Other Systems Reviewed Negative Unless Noted: Yes (Negative excepted noted.) Past Tsgkbgc-Nhcavb-Wabuia Hx Patient Social History Alcohol Use: Denies Use Recreational Drug Use: No Smoking Status: Current Everyday Smoker Type Used: Cigarettes 2nd Hand Smoke Exposure: Yes Recent Foreign Travel: No Contact w/Someone Who Travel: No Recent Infectious Disease Expo: No Recent Hopitalizations: No Physical Abuse: No Sexual Abuse: No Mistreated: No Fear: No Immunizations Up To Date Date of Pneumonia Vaccine: May 19, 2015 Date of Influenza Vaccine: Mar 29, 2018 Seasonal Allergies Seasonal Allergies: Yes Past Medical History Surgeries: Yes (knee and ankle surgery) Gallbladder, Hysterectomy, Orthopedic Respiratory: Yes Asthma Currently Using CPAP: Yes Currently Using BIPAP: No Cardiac: No Neurological: No : No 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 Sexually Transmitted Disease: No HIV/AIDS: No Genitourinary: No Gastrointestinal: Yes (Gastroparesis; Hepatitis C) Gastroesophageal Reflux Musculoskeletal: No Endocrine: Yes Diabetes, Insulin dep HEENT: Yes (wears glasses) Hearing Impairment: Denies Cancer: No Psychosocial: Yes (schizoeffective disorder) Anxiety, Depression Integumentary: No Blood Disorders: No Physical Exam Vital Signs Vital Signs - First Documented 09/22/18 15:56 Temp 97.4 Pulse 80 Resp 20 B/P (MAP) 152/89 (110) Pulse Ox 97 O2 Delivery Room Air Capillary Refill : Less Than 3 Seconds Height/Weight/BMI Height: 5'2.00" Weight: 200lbs. 7.0oz. 90.787028rv; 38.1 BMI Method:Stated General Appearance: obese, other (non-toxic appearing ) HEENT: PERRL/EOMI Respiratory: lungs clear, normal breath sounds, no respiratory distress, no accessory muscle use Cardiovascular: regular rate, rhythm, no edema, no gallop, no JVD, no murmur Gastrointestinal: normal bowel sounds, non tender, soft Extremities: normal range of motion, no pedal edema Neurologic/Psychiatric: project admin II-XII nml as tested, no motor/sensory deficits, alert, normal mood/affect, oriented x 3 Skin: normal color Progress/Results/Core Measures Results/Orders Lab Results Laboratory Tests Test 09/22/18 16:01 09/22/18 16:45 Range/Units Glucometer 101 70-110 MG/DL White Blood Count 10.0 4.3-11.0 10^3/uL Red Blood Count 4.16 L 4.35-5.85 10^6/uL Hemoglobin 13.7 11.5-16.0 G/DL Hematocrit 39 35-52 % Mean Corpuscular Volume 94 80-99 FL Mean Corpuscular Hemoglobin 33 25-34 PG Mean Corpuscular Hemoglobin Concent 35 32-36 G/DL Red Cell Distribution Width 13.0 10.0-14.5 % Platelet Count 201 130-400 10^3/uL Mean Platelet Volume 10.5 H 7.4-10.4 FL Neutrophils (%) (Auto) 72 42-75 % Lymphocytes (%) (Auto) 19 12-44 % Monocytes (%) (Auto) 8 0-12 % Eosinophils (%) (Auto) 1 0-10 % Basophils (%) (Auto) 0 0-10 % Neutrophils # (Auto) 7.2 1.8-7.8 X 10^3 Lymphocytes # (Auto) 1.9 1.0-4.0 X 10^3 Monocytes # (Auto) 0.8 0.0-1.0 X 10^3 Eosinophils # (Auto) 0.1 0.0-0.3 10^3/uL Basophils # (Auto) 0.0 0.0-0.1 10^3/uL Neutrophils % (Manual) 74 % Lymphocytes % (Manual) 25 % Monocytes % (Manual) 1 % Eosinophils % (Manual) 0 % Basophils % (Manual) 0 % Band Neutrophils 0 % Urine Color YELLOW Urine Clarity SLT CLOUDY Urine pH 6.0 5-9 Urine Specific [place] 1.025 H 1.016-1.022 Urine Protein 2+ H NEGATIVE Urine Glucose (UA) NEGATIVE NEGATIVE Urine Ketones TRACE H NEGATIVE Urine Nitrite NEGATIVE NEGATIVE Urine Bilirubin 1+ H NEGATIVE Urine Urobilinogen 0.2 NORMAL MG/DL Urine Leukocyte Esterase NEGATIVE NEGATIVE Urine RBC (Auto) NEGATIVE NEGATIVE Urine RBC 0-2 /HPF Urine WBC 0-2 /HPF Urine Squamous Epithelial Cells 5-10 /HPF Urine Crystals NONE /LPF Urine Bacteria FEW H /HPF Urine Casts NONE /LPF Urine Mucus LARGE H /LPF Urine Culture Indicated NO Sodium Level 141 135-145 MMOL/L Potassium Level 3.5 L 3.6-5.0 MMOL/L Chloride Level 104 98-107 MMOL/L Carbon Dioxide Level 28 21-32 MMOL/L Anion Gap 9 5-14 MMOL/L Blood Urea Nitrogen 10 7-18 MG/DL Creatinine 1.01 0.60-1.30 MG/DL Estimat Glomerular Filtration Rate 60 BUN/Creatinine Ratio 10 Glucose Level 102 70-105 MG/DL Calcium Level 9.7 8.5-10.1 MG/DL Corrected Calcium 9.5 8.5-10.1 MG/DL Total Bilirubin 0.4 0.1-1.0 MG/DL Aspartate Amino Transf (AST/SGOT) 23 5-34 U/L Alanine Aminotransferase (ALT/SGPT) 11 0-55 U/L Alkaline Phosphatase 54 40-136 U/L Total Protein 7.2 6.4-8.2 GM/DL Albumin 4.2 3.2-4.5 GM/DL Lipase 36 8-78 U/L My Orders Orders - NICHOL PANDEY DO Comprehensive Metabolic Panel (09/22/18 16:21) Cbc And Manual Diff (09/22/18 16:21) Lipase (09/22/18 16:21) Ua Culture If Indicated (09/22/18 16:21) Ekg Tracing (09/22/18 16:21) Acute Abd Series (09/22/18 16:22) Haloperidol Injection (Haldol Injectio (09/22/18 17:00) Promethazine Injection (Phenergan Injec (09/22/18 17:00) Ns Iv 1000 Ml (Sodium Chloride 0.9%) (09/22/18 17:00) Medications Given in ED Current Medications Medications Dose Ordered Sig/Ashley Route Start Time Stop Time Status Last Admin Dose Admin Haloperidol Lactate 5 mg ONCE ONCE IV 09/22/18 17:00 09/22/18 17:01 DC 09/22/18 17:10 5 MG Promethazine HCl 25 mg ONCE ONCE IVP 09/22/18 17:00 09/22/18 17:01 DC 09/22/18 17:10 25 MG Vital Signs/I&O 09/22/18 15:56 Temp 97.4 Pulse 80 Resp 20 B/P (MAP) 152/89 (110) Pulse Ox 97 O2 Delivery Room Air Blood Pressure Mean: 110 Progress Progress Note : Time: 18:05 Progress Note Feeling better. Tolerating PO. Advised close follow up with PCP/Endocrinology. Advised close monitoring of BS. Urine contaminated. Asymptomatic. Comment NSR< HR 58, no ST segment changes, qtc 425 Departure Impression Primary Impression: Nausea and vomiting Additional Impressions: Gastric paresis Abdominal pain Disposition: 01 HOME, SELF-CARE Condition: Stable Departure-Patient Inst. Decision time for Depature: 18:01 Referrals: SELFGLORY MD (PCP/Family) Primary Care Physician Patient Instructions: Clear Liquid Diet, Full Liquid Diet, Gastroparesis (Delayed Gastric Emptying) (DC), Nausea and Vomiting, Adult (DC) Add. Discharge Instructions: Please read the attached handouts. Please eat a liquid diet until your symptoms improve/resolve. Please continue home medications. Monitor blood sugar closely. Advance diet as tolerated. Use the prescribed nausea medication for uncontrolled nausea/vomiting. All discharge instructions reviewed with patient and/or family. Voiced understanding. Scripts Promethazine HCl (Phenergan) 25 Mg Supp.rect 25 MG RC BID PRN PRN for NAUSEA/VOMITING-1ST LINE, #30 SUPP.RECT Prov: NICHOL PANDEY DO 09/22/18 NICHOL PANDEY DO September 22, 2018 16:58
[2018-09-22] MEDS ORDERED: HALOPERIDOL 5 MG/ML (HALDOL) AMP IV ONE (17:00)
[2018-09-22] MEDS ORDERED: PROMETHAZINE INJ 25 MG/ML (PHENERGAN) AMP IVP ONE (17:00)
--- NOTE | 2018-09-22 17:06 | Diagnostic Imaging Report ---
INDICATION: Nausea, vomiting, and diarrhea for three days. FINDINGS: The upright chest shows normal heart size and vascularity. The lungs are clear. There is no effusion or pneumothorax. Supine and upright views of the abdomen show a normal bowel gas pattern. There is no intramural or free intraperitoneal air. No mass or calculus is evident. The gallbladder is surgically absent. There is no acute bony abnormality. IMPRESSION: No acute abnormality is seen. Dictated by: Dictated on workstation # [id number]
[2018-09-22] MEDS: NS IV 1000 ML 1,000 ML IV SCH ×2 (17:10→18:01)
[2018-09-22 17:16] LABS: BILIRUBIN,URINE 1+ (NEGATIVE); CLARITY,URINE SLT CLOUDY; COLOR,URINE YELLOW; GLUCOSE, URINE (UA) NEGATIVE (NEGATIVE); KETONES,URINE TRACE (NEGATIVE); NITRITE,URINE NEGATIVE (NEGATIVE); PROTEIN,URINE 2+ (NEGATIVE)
[2018-09-22 17:17] LABS: BACTERIA,URINE FEW /HPF; LEUKOCYTE ESTERASE ,URINE NEGATIVE (NEGATIVE); RBC,URINE 0-2 /HPF; UROBILINOGEN,URINE 0.2 MG/DL (NORMAL); WBC,URINE 0-2 /HPF
[2018-09-22 17:23] LABS: BAND NEUTROPHILS 0 %; BASOPHILS % (MANUAL) 0 %; EOSINOPHILS % (MANUAL) 0 %; LYMPHOCYTES % (MANUAL) 25 %; MONOCYTES % (MANUAL) 1 %; NEUTROPHILS % (MANUAL) 74 %
[2018-09-22 17:24] LABS: CALCIUM 9.7 MG/DL (8.5-10.1); CREATININE SERUM 1.01 MG/DL (0.60-1.30); POTASSIUM 3.5 MMOL/L (3.6-5.0)
[2018-09-22 17:25] LABS: ALBUMIN 4.2 GM/DL (3.2-4.5); BILIRUBIN,TOTAL 0.4 MG/DL (0.1-1.0); TOTAL PROTEIN 7.2 GM/DL (6.4-8.2)
[2018-09-22] MEDS ORDERED: PROM25SU43 RC (18:04)
[2018-09-22 18:20] VITALS: BP 127/64
== END 2018-09-22 18:20 | disposition home or self-care (01) ==
LOC: EDUNIT# 15:46 → ER FS 15:47
DX: E11.43 Type 2 diabetes mellitus with diabetic autonomic (poly)neuropathy (principal); K31.84 Gastroparesis; K21.9 Gastro-esophageal reflux disease without esophagitis; F25.9 Schizoaffective disorder, unspecified; F41.9 Anxiety disorder, unspecified; F32.9 Major depressive disorder, single episode, unspecified; J45.909 Unspecified asthma, uncomplicated; B19.20 Unspecified viral hepatitis C without hepatic coma; F17.210 Nicotine dependence, cigarettes, uncomplicated; Z79.4 Long term (current) use of insulin; Z91.048 Other nonmedicinal substance allergy status; Z88.8 Allergy status to other drugs, medicaments and biological substances; Z88.5 Allergy status to narcotic agent; Z88.2 Allergy status to sulfonamides; Z88.6 Allergy status to analgesic agent
CPT/HCPCS: 36415; 74022; 80053; 81000; 82962; 83690; 85007; 85027; 93005; 96374; 96375

== ENCOUNTER → 2018-09-28 | Emergency (ER) | payer MEDICAID ==
[~2018-09-28] VITALS: Ht 157.5 cm; Wt 93.4 kg
[~2018-09-28] MED LIST changes: +ACETAMINOPHEN 325 MG TABLET PO ONE; +FAMOTIDINE 20MG/2ML IV (PEPCID) IVP ONE; +HALOPERIDOL 5 MG/ML (HALDOL) AMP IV ONE; +NS IV 1000 ML 1,000 ML IV STA; +PROM25SU43 RC; +PROMETHAZINE INJ 25 MG/ML (PHENERGAN) AMP IVP ONE; +SCOPALAMINE TD; +SCOPOLAMINE 1.5 MG (TRANSDERM-SCOP) PATCH TD ONE; +meTOprolol TARTRATE 25 MG (LOPRESSOR) TABLET PO ONE
[2018-09-28 08:51] VITALS: BP 199/99
--- OUTSIDE RECORDS SUMMARY | 2018-09-28 08:53 | XMS REPORT | Continuity of Care Document ---
[...] 7-25 CREATININE 0.79 mg/dL 0.50-1.10 eGFR NON-AFR. SAO TOMEAN 92 mL/min/1.73m2 > OR=60 eGFR 106 mL/min/1.73m2 [...] 11.0 fL 7.5-12.5 ABSOLUTE NEUTROPHILS 9684 cells/uL 5054-6337 ABSOLUTE LYMPHOCYTES 1934 cells/uL 850-3900 ABSOLUTE MONOCYTES 620 cells/uL 200-950 ABSOLUTE EOSINOPHILS 112 cells/uL 15-500 ABSOLUTE BASOPHILS 50 cells/uL 0-200 NEUTROPHILS 78.1 % NRG LYMPHOCYTES 15.6 % NRG MONOCYTES 5.0 % NRG EOSINOPHILS 0.9 % NRG BASOPHILS 0.4 % NRG TSH - 07/20/18 10:12 TSH 2.54 mIU/L NRG BETA-HYDROXYBUTYRATE - 08/07/18 12:00 BETA-HYDROXYBUTYRATE 0.09 mmol/L NRG UA W/ MICROSCOPY - 09/07/18 10:45 COLOR YELLOW YELLOW APPEARANCE CLOUDY CLEAR SPECIFIC GRAVITY 1.019 1.001-1.035 PH 6.0 5.0-8.0 GLUCOSE NEGATIVE NEGATIVE BILIRUBIN NEGATIVE NEGATIVE KETONES NEGATIVE NEGATIVE OCCULT BLOOD NEGATIVE NEGATIVE PROTEIN NEGATIVE NEGATIVE NITRITE NEGATIVE NEGATIVE LEUKOCYTE ESTERASE NEGATIVE NEGATIVE WBC 0-5 /HPF < OR=5 RBC 0-2 /HPF < OR=2 SQUAMOUS EPITHELIAL CELLS 6-10 /HPF < OR=5 BACTERIA FEW /HPF NONE SEEN HYALINE CAST NONE SEEN /LPF NONE SEEN COMMENTS FEW MUCOUS THREADS NRG CALCIUM OXALATE CRYSTALS FEW /HPF NONE OR FEW Encounters ACCT No. Visit Date/Time Discharge Status Pt. Type Provider Facility Loc./Unit Complaint [id number] 09/07/2018 10:30:00 09/07/2018 23:59:59 CLS Outpatient [facility] [id number] 09/07/2018 10:30:00 Document Registration [id number] 08/07/2018 12:00:00 Document Registration [id number] 07/20/2018 09:00:00 Document Registration
[2018-09-28 09:11] LABS: HEMATOCRIT 42 % (35-52); HEMOGLOBIN 14.5 G/DL (11.5-16.0); MEAN CORPUSCULAR HEMOGLOBIN 33 PG (25-34); MEAN CORPUSCULAR HGB CONC 35 G/DL (32-36); MEAN CORPUSCULAR VOLUME 95 FL (80-99); WHITE BLOOD COUNT 8.1 10^3/uL (4.3-11.0)
[2018-09-28 09:12] LABS: BASOPHILS % (AUTO) 0 % (0-10); EOSINOPHILS # (AUTO) 0.1 10^3/uL (0.0-0.3); EOSINOPHILS % (AUTO) 1 % (0-10); LYMPHOCYTES # (AUTO) 1.5 X 10^3 (1.0-4.0); LYMPHOCYTES % (AUTO) 19 % (12-44); MEAN PLATELET VOLUME 10.6 FL (7.4-10.4); MONOCYTES # (AUTO) 0.5 X 10^3 (0.0-1.0); MONOCYTES % (AUTO) 7 % (0-12); NEUTROPHILS # (AUTO) 5.9 X 10^3 (1.8-7.8); NEUTROPHILS % (AUTO) 73 % (42-75); PLATELET COUNT 197 10^3/uL (130-400)
--- NOTE | 2018-09-28 09:13 | ED Abdominal Pain ---
General Chief Complaint: Abdominal/GI Problems Stated Complaint: VOMITING; NAUSEA Nursing Triage Note: PT HAS HISTORYOF GASTROPARESIS. ANGELINA HAS BEEN VOMITING OFF AND ON SINCE A WEEK AGO TUESDAY. HAS BEEN SEEN IN THE ER SINCE THAT TIME. HAS NOT TRIED ANY MEDICATIONS THIS AM BUT HAS PHENERGAN SUPPOSITORIES, ORAL, AND ZOFRAN AT HOME. Sepsis Screen: No Definite Risk History of Present Illness Date Seen by Provider: Sep 28, 2018 Time Seen by Provider: 08:50 Initial Comments The patient is a 43-year-old female with a history of hypertension, hyperlipidemia and insulin-dependent diabetes, as well as diabetic gastroparesis and cyclical vomiting syndrome, previously using marijuana at times but patient states no longer. She has Zofran and Phenergan at home which are not relieving symptoms and is out of her scopolamine patches. She presents with concern for about 8 days of daily nonbloody vomiting with associated epigastric pain which she states feels identical to prior episodes of symptomatic gastroparesis. Has been intermittently able to hold down food and fluids. No associated fevers, hematemesis, hematochezia, melena, cough, shortness of breath or chest pain, lower or specifically right-sided abdominal pain, flank pain, back pain, dysuria or hematuria, diarrhea or constipation. Patient's blood pressure is elevated this morning without sign or symptoms of acute end organ damage and she notes that she has not taken her metoprolol this morning. Allergies and Home Medications Allergies Coded Allergies: adhesive tape (Verified Allergy, Unknown, 09/28/18) chlorhexidine (Verified Allergy, Unknown, 07/29/18) fluvoxamine (Verified Allergy, Unknown, 07/29/18) hydromorphone (Verified Allergy, Unknown, 07/29/18) latex (Verified Allergy, Unknown, 07/29/18) meperidine (Verified Allergy, Unknown, 07/29/18) morphine (Verified Allergy, Unknown, 05/19/18) sulfamethoxazole (Verified Allergy, Unknown, 05/19/18) trimethoprim (Verified Allergy, Unknown, 05/19/18) Home Medications Acetaminophen 500 Mg Tablet, 500 MG PO Q8H PRN for PAIN-BREAKTHROUGH, (Reported) Albuterol Sulfate 1 Puff Puff, 2 PUFF IH Q4H PRN for SHORTNESS OF BREATH, (Reported) 1 PUFF = 90 MCG Cefdinir 300 Mg Capsule, 300 MG PO BID Prescribed by: NIK ESCOBAR on 07/24/18 1049 Insulin Aspart 300 Units/3 Ml Solution, 7 UNITS SQ AC Prescribed by: OSMAR JEROME on 05/23/18 09 Insulin Detemir 100 Unit/1 Ml Insuln.pen, 20 UNIT SQ HS Prescribed by: OSMAR JEROME on 05/23/18 09 Ipratropium/Albuterol Sulfate 3 Ml Ampul.neb, 3 ML IH Q4H PRN for SHORTNESS OF BREATH, (Reported) Lisinopril 20 Mg Tablet, 20 MG PO DAILY Prescribed by: OSMAR JEROME on 05/23/18 09 Metformin HCl 750 Mg Tab.er.24h, 750 MG PO BID, (Reported) Metoclopramide HCl 10 Mg Tablet, 10 MG PO QID, (Reported) Metoprolol Tartrate 25 Mg Tablet, 12.5 MG PO BID Prescribed by: OSMAR JEROME on 05/23/18954 Omeprazole 20 Mg Capsule.dr, 20 MG PO HS, (Reported) Ondansetron 4 Mg Tab.rapdis, 4 MG PO Q4H PRN for NAUSEA/VOMITING-1ST LINE, (Reported) Promethazine HCl 25 Mg Tablet, 25 MG PO Q6H PRN for NAUSEA/VOMITING, (Reported) Promethazine HCl 50 Mg Supp.rect, 50 MG RC Q6H PRN for NAUSEA/VOMITING-2ND LINE Prescribed by: IVANA RODRIGUEZ on 08/09/18 1548 Promethazine HCl 25 Mg Supp.rect, 25 MG RC BID PRN PRN for NAUSEA/VOMITING-1ST LINE Prescribed by: NICHOL PANDEY on 09/22/18 1804 Scopolamine 1 Each Patch.td.3, 1 EACH TD Q72H Prescribed by: OSMAR JEROME on 05/23/18 09 Tramadol HCl 50 Mg Tablet, 50 MG PO Q6H PRN for PAIN-MILD, (Reported) Trazodone HCl 150 Mg Tablet, 300 MG PO HS, (Reported) Venlafaxine HCl 150 Mg Tab.er.24, 150 MG PO DAILY, (Reported) [Scopalamine] , 1 EACH TD Q72H PRN for vomiting Prescribed by: DONAL SOMMER on 09/28/18 0918 Patient Home Medication List Home Medication List Reviewed: Yes Review of Systems Review of Systems Constitutional: see HPI All Other Systems Reviewed Negative Unless Noted: Yes Past Wldxixd-Myqnhq-Kmkrkz Hx Past Med/Social Hx: Reviewed Nursing Past Med/Soc Hx Patient Social History Alcohol Use: Denies Use Recreational Drug Use: No Type Used: Cigarettes 2nd Hand Smoke Exposure: Yes Recent Foreign Travel: No Contact w/Someone Who Travel: No Recent Infectious Disease Expo: No Recent Hopitalizations: No Physical Abuse: No Sexual Abuse: No Mistreated: No Fear: No Immunizations Up To Date Date of Pneumonia Vaccine: May 19, 2015 Date of Influenza Vaccine: Mar 29, 2018 Seasonal Allergies Seasonal Allergies: Yes Past Medical History Surgeries: Yes (knee and ankle surgery) Gallbladder, Hysterectomy, Orthopedic Respiratory: Yes Asthma Currently Using CPAP: Yes Currently Using BIPAP: No Cardiac: No Neurological: No Female 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 Sexually Transmitted Disease: No HIV/AIDS: No Genitourinary: No Gastrointestinal: Yes (Gastroparesis; Hepatitis C) Gastroesophageal Reflux Musculoskeletal: No Endocrine: Yes Diabetes, Insulin dep HEENT: Yes (wears glasses) Hearing Impairment: Denies Cancer: No Psychosocial: Yes (schizoeffective disorder) Anxiety, Depression Integumentary: No Blood Disorders: No Family Medical History Reviewed Nursing Family Hx Physical Exam Vital Signs Vital Signs - First Documented 09/28/18 08:51 Temp 97.8 Pulse 63 Resp 18 B/P (MAP) 199/99 (132) O2 Delivery Room Air Capillary Refill : Less Than 3 Seconds Height/Weight/BMI Height: 5'2.00" Weight: 206lbs. 7.0oz. 93.142511my; 38.1 BMI Method:Stated General Appearance: no apparent distress Exam Comments This is a middle-aged female appearing nontoxic and in no acute distress. Head is normocephalic and atraumatic. Neck is supple and nontender. Oropharynx is mildly tacky. Lungs are clear to auscultation at all stations. There is a normal S1 and S2 without rubs or gallops and capillary refill is appropriate, less 2 seconds globally. Abdomen is soft, nondistended and with mild tenderness over the epigastrium only without any rebound or guarding. Skin is warm and dry without cyanosis, clubbing or edema. Psychiatrically, the jamel ent demonstrates appropriate mood and affect and is alert. Progress/Results/Core Measures Results/Orders Lab Results Laboratory Tests Test 09/28/18 09:00 09/28/18 09:15 Range/Units White Blood Count 8.1 4.3-11.0 10^3/uL Red Blood Count 4.41 4.35-5.85 10^6/uL Hemoglobin 14.5 11.5-16.0 G/DL Hematocrit 42 35-52 % Mean Corpuscular Volume 95 80-99 FL Mean Corpuscular Hemoglobin 33 25-34 PG Mean Corpuscular Hemoglobin Concent 35 32-36 G/DL Red Cell Distribution Width 13.0 10.0-14.5 % Platelet Count 197 130-400 10^3/uL Mean Platelet Volume 10.6 H 7.4-10.4 FL Neutrophils (%) (Auto) 73 42-75 % Lymphocytes (%) (Auto) 19 12-44 % Monocytes (%) (Auto) 7 0-12 % Eosinophils (%) (Auto) 1 0-10 % Basophils (%) (Auto) 0 0-10 % Neutrophils # (Auto) 5.9 1.8-7.8 X 10^3 Lymphocytes # (Auto) 1.5 1.0-4.0 X 10^3 Monocytes # (Auto) 0.5 0.0-1.0 X 10^3 Eosinophils # (Auto) 0.1 0.0-0.3 10^3/uL Basophils # (Auto) 0.0 0.0-0.1 10^3/uL Sodium Level 142 135-145 MMOL/L Potassium Level 4.2 3.6-5.0 MMOL/L Chloride Level 104 98-107 MMOL/L Carbon Dioxide Level 20 L 21-32 MMOL/L Anion Gap 18 H 5-14 MMOL/L Blood Urea Nitrogen 10 7-18 MG/DL Creatinine 0.81 0.60-1.30 MG/DL Estimat Glomerular Filtration Rate > 60 BUN/Creatinine Ratio 12 Glucose Level 135 H 70-105 MG/DL Calcium Level 9.5 8.5-10.1 MG/DL Corrected Calcium 9.3 8.5-10.1 MG/DL Total Bilirubin 0.4 0.1-1.0 MG/DL Aspartate Amino Transf (AST/SGOT) 22 5-34 U/L Alanine Aminotransferase (ALT/SGPT) 14 0-55 U/L Alkaline Phosphatase 52 40-136 U/L Total Protein 7.6 6.4-8.2 GM/DL Albumin 4.2 3.2-4.5 GM/DL Lipase 45 8-78 U/L Serum Test, Qualitative NEGATIVE NEGATIVE Urine Color YELLOW Urine Clarity SLT CLOUDY Urine pH 6.0 5-9 Urine Specific [place] 1.020 1.016-1.022 Urine Protein TRACE NEGATIVE Urine Glucose (UA) NEGATIVE NEGATIVE Urine Ketones NEGATIVE NEGATIVE Urine Nitrite NEGATIVE NEGATIVE Urine Bilirubin NEGATIVE NEGATIVE Urine Urobilinogen 0.2 NORMAL MG/DL Urine Leukocyte Esterase NEGATIVE NEGATIVE Urine RBC (Auto) NEGATIVE NEGATIVE Urine RBC NONE /HPF Urine WBC 0-2 /HPF Urine Squamous Epithelial Cells 2-5 /HPF Urine Crystals NONE /LPF Urine Bacteria TRACE /HPF Urine Casts NONE /LPF Urine Mucus SMALL H /LPF Urine Culture Indicated NO My Orders Orders - DONAL SOMMER MD Cbc With Automated Diff (09/28/18 08:54) Comprehensive Metabolic Panel (09/28/18 08:54) Lipase (09/28/18 08:54) Ua Culture If Indicated (09/28/18 08:54) Ed Iv/Invasive Line Start (09/28/18 08:54) Hcg,Qualitative Serum (09/28/18 08:54) Ns Iv 1000 Ml (Sodium Chloride 0.9%) (09/28/18 08:54) Acetaminophen Tablet/Caplet (Tylenol T (09/28/18 09:00) Famotidine Injection (Pepcid Injection) (09/28/18 09:00) Haloperidol Injection (Haldol Injectio (09/28/18 09:00) Metoprolol Tartrate (Ir) Tab (Lopressor (09/28/18 09:15) Promethazine Injection (Phenergan Injec (09/28/18 10:00) Scopolamine Patch (Transderm-Scop Patch) (09/28/18 10:00) Medications Given in ED Current Medications Medications Dose Ordered Sig/Ashley Route Start Time Stop Time Status Last Admin Dose Admin Famotidine 20 mg ONCE ONCE IVP 09/28/18 09:00 09/28/18 09:01 DC 09/28/18 09:17 20 MG Haloperidol Lactate 5 mg ONCE ONCE IV 09/28/18 09:00 09/28/18 09:01 DC 09/28/18 09:17 5 MG Promethazine HCl 25 mg ONCE ONCE IVP 09/28/18 10:00 09/28/18 10:01 DC 09/28/18 09:53 25 MG Scopolamine 1.5 mg ONCE ONCE TD 09/28/18 10:00 09/28/18 10:01 DC 09/28/18 09:54 1.5 MG Vital Signs/I&O 09/28/18 08:51 Temp 97.8 Pulse 63 Resp 18 B/P (MAP) 199/99 (132) O2 Delivery Room Air Blood Pressure Mean: 132 Progress Progress Note : Time: 09:12 Progress Note Clinical examination reassuring. 43-year-old diabetic with gastroparesis who presents with nausea, vomiting and epigastric pain which is quite a common concern for her. She is in no acute distress. Will place IV and give IV fluids and medication for discomfort and nausea as per nursing flow sheet and will check urine and will then reevaluate. If patient feels better and workup is reassuring, likely home with a refill on her scopolamine to follow very closely with primary care. The patient understands and agrees with the plan of care. Update 1029: Patient feeling much, much better upon reassessment and states her symptoms are improved to the point that she feels comfortable going home. Her workup is unremarkable and reassuring. We will discharge home with a prescription for scopolamine patches as the patient states these have helped her in the past and she is to follow-up with her primary care physician in the next 1-2 days and to return here if symptoms worsen or if other symptoms of concern develop. All questions are answered. Departure Impression Primary Impression: Diabetic gastroparesis associated with type 2 diabetes mellitus Additional Impression: Chronic vomiting Disposition: 01 HOME, SELF-CARE Condition: Improved Departure-Patient Inst. Referrals: SELF,GLORY VEGA (PCP/Family) Primary Care Physician Patient Instructions: Gastroparesis (Delayed Gastric Emptying), Nausea and Vomiting, Adult (DC) Add. Discharge Instructions: Follow up very closely with your primary care doctor in the clinic in the next 1-2 days. Use your home antinausea medications as instructed. Return immediately to the emergency department with worsened symptoms or other new concerns. Scripts [Scopalamine] No Conflict Check 1 EACH TD Q72H PRN for vomiting, #20 PATCH 1 Refill Prov: DONAL SOMMER MD 09/28/18 DONAL SOMMER MD Sep 28, 2018 09:13
[2018-09-28 09:24] LABS: BILIRUBIN,URINE NEGATIVE (NEGATIVE); CLARITY,URINE SLT CLOUDY; COLOR,URINE YELLOW; GLUCOSE, URINE (UA) NEGATIVE (NEGATIVE); KETONES,URINE NEGATIVE (NEGATIVE); NITRITE,URINE NEGATIVE (NEGATIVE); PROTEIN,URINE TRACE (NEGATIVE); UROBILINOGEN,URINE 0.2 MG/DL (NORMAL)
[2018-09-28 09:25] LABS: BACTERIA,URINE TRACE /HPF; LEUKOCYTE ESTERASE ,URINE NEGATIVE (NEGATIVE); WBC,URINE 0-2 /HPF
[2018-09-28 09:32] LABS: ALANINE AMINOTRANSFERASE 14 U/L (0-55); ALKALINE PHOSPHATASE 52 U/L (40-136); BILIRUBIN,TOTAL 0.4 MG/DL (0.1-1.0); BUN/CREATININE RATIO 12; CALCIUM 9.5 MG/DL (8.5-10.1); CARBON DIOXIDE 20 MMOL/L (21-32); CHLORIDE 104 MMOL/L (98-107); CREATININE SERUM 0.81 MG/DL (0.60-1.30); GFR ESTIMATED > 60; GLUCOSE 135 MG/DL (70-105); POTASSIUM 4.2 MMOL/L (3.6-5.0); SODIUM 142 MMOL/L (135-145); TOTAL PROTEIN 7.6 GM/DL (6.4-8.2)
[2018-09-28 09:33] LABS: ALBUMIN 4.2 GM/DL (3.2-4.5); LIPASE 45 U/L (8-78)
== END | disposition home or self-care (01) ==
LOC: EDUNIT# 08:46 → ER FS 08:48
DX: E11.43 Type 2 diabetes mellitus with diabetic autonomic (poly)neuropathy (principal); K31.84 Gastroparesis; G43.A0 Cyclical vomiting, in migraine, not intractable; E78.5 Hyperlipidemia, unspecified; I10 Essential (primary) hypertension; J45.909 Unspecified asthma, uncomplicated; K21.9 Gastro-esophageal reflux disease without esophagitis; B19.20 Unspecified viral hepatitis C without hepatic coma; F41.9 Anxiety disorder, unspecified; F32.9 Major depressive disorder, single episode, unspecified; F25.9 Schizoaffective disorder, unspecified; Z91.048 Other nonmedicinal substance allergy status; Z88.8 Allergy status to other drugs, medicaments and biological substances; Z91.040 Latex allergy status; Z88.2 Allergy status to sulfonamides; Z88.5 Allergy status to narcotic agent; Z79.4 Long term (current) use of insulin; Z77.22 Contact with and (suspected) exposure to environmental tobacco smoke (acute) (chronic); Z90.710 Acquired absence of both cervix and uterus; Z98.890 Other specified postprocedural states
CPT/HCPCS: 36415; 80053; 81000; 83690; 84703; 85025; 96374; 96375

== ENCOUNTER 2018-10-01 10:48 | Emergency (ER) | payer MEDICAID ==
[~2018-10-01] VITALS: Ht 157.5 cm; Wt 92.1 kg
[~2018-10-01 10:48] MED LIST changes: -ACETAMINOPHEN 325 MG TABLET PO ONE; -FAMOTIDINE 20MG/2ML IV (PEPCID) IVP ONE; -HALOPERIDOL 5 MG/ML (HALDOL) AMP IV ONE; -NS IV 1000 ML 1,000 ML IV STA; -PROMETHAZINE INJ 25 MG/ML (PHENERGAN) AMP IVP ONE; -SCOPOLAMINE 1.5 MG (TRANSDERM-SCOP) PATCH TD ONE; -meTOprolol TARTRATE 25 MG (LOPRESSOR) TABLET PO ONE
--- OUTSIDE RECORDS SUMMARY | 2018-10-01 10:54 | XMS REPORT | Continuity of Care Document ---
[...] 7-25 CREATININE 0.79 mg/dL 0.50-1.10 eGFR NON-AFR. NICARAGUAN 92 mL/min/1.73m2 > OR=60 eGFR 106 mL/min/1.73m2 [...] 11.0 fL 7.5-12.5 ABSOLUTE NEUTROPHILS 9684 cells/uL [id number] ABSOLUTE LYMPHOCYTES 1934 cells/uL 850-3900 ABSOLUTE MONOCYTES [...] Status Pt. Type Provider Facility Loc./Unit Complaint [id number] 09/28/2018 09:45:00 [facility] Out[facility] [id number] 09/07/2018 10:30:00 Document Registration [id number] 08/07/2018 12:00:00 Document Registration [id number] 07/20/2018 09:00:00 Document Registration
--- NOTE | 2018-10-01 11:21 | ED Abdominal Pain ---
General Chief Complaint: Abdominal/GI Problems Stated Complaint: VOMITING Source of Information: Patient, Old Records, RN Notes Reviewed Exam Limitations: No Limitations History of Present Illness Date Seen by Provider: Oct 01, 2018 Time Seen by Provider: 11:21 Initial Comments Patient re-presents c/ c/o continued abdominal pain c/ N/V for the last 2 weeks. Last seen here on 09/28/18 for same complaints. Reports having seen a GI specialist in the past @ [facility] in [place]. States she is going to get a second opinion. No known fever. No diarrhea. She is an insulin dependent diabetic and apparently diagnosed c/ Gastroparesis in the past. Has Phenergan and Zofran which isn't helping. Timing/Duration: Other (x 2 weeks) Severity/Quality: Moderate, Cramping Location: Generalized Abdomen Radiation: No Radiation Activities at Onset: Other (none) Modifying Factors: Worsens With Vomiting Associated Symptoms: Denies Symptoms (x/ as noted. ), Nausea/Vomiting Allergies and Home Medications Allergies Coded Allergies: adhesive tape (Verified Allergy, Unknown, 09/28/18) chlorhexidine (Verified Allergy, Unknown, 07/29/18) fluvoxamine (Verified Allergy, Unknown, 07/29/18) hydromorphone (Verified Allergy, Unknown, 07/29/18) latex (Verified Allergy, Unknown, 07/29/18) meperidine (Verified Allergy, Unknown, 07/29/18) morphine (Verified Allergy, Unknown, 05/19/18) sulfamethoxazole (Verified Allergy, Unknown, 05/19/18) trimethoprim (Verified Allergy, Unknown, 05/19/18) Home Medications Acetaminophen 500 Mg Tablet, 500 MG PO Q8H PRN for PAIN-BREAKTHROUGH, (Reported) Albuterol Sulfate 1 Puff Puff, 2 PUFF IH Q4H PRN for SHORTNESS OF BREATH, (Reported) 1 PUFF = 90 MCG Insulin Aspart 300 Units/3 Ml Solution, 7 UNITS SQ AC Prescribed by: OSMAR JEROME on 05/23/18 0955 Insulin Detemir 100 Unit/1 Ml Insuln.pen, 20 UNIT SQ HS Prescribed by: OSMAR JEROME on 05/23/18 0955 Ipratropium/Albuterol Sulfate 3 Ml Ampul.neb, 3 ML IH Q4H PRN for SHORTNESS OF BREATH, (Reported) Lisinopril 20 Mg Tablet, 20 MG PO DAILY Prescribed by: OSMAR JEROME on 05/23/18 0955 Metformin HCl 750 Mg Tab.er.24h, 750 MG PO BID, (Reported) Metoclopramide HCl 10 Mg Tablet, 10 MG PO QID, (Reported) Omeprazole 20 Mg Capsule.dr, 20 MG PO HS, (Reported) Ondansetron 4 Mg Tab.rapdis, 4 MG PO Q4H PRN for NAUSEA/VOMITING-1ST LINE, (Reported) Promethazine HCl 25 Mg Tablet, 25 MG PO Q6H PRN for NAUSEA/VOMITING, (Reported) Promethazine HCl 50 Mg Supp.rect, 50 MG RC Q6H PRN for NAUSEA/VOMITING-2ND LINE Prescribed by: IVANA RODRIGUEZ on 08/09/18 1548 Scopolamine 1 Each Patch.td.3, 1 EACH TD Q72H Prescribed by: OSMAR JEROME on 05/23/18 09 Tramadol HCl 50 Mg Tablet, 50 MG PO Q6H PRN for PAIN-MILD, (Reported) Trazodone HCl 150 Mg Tablet, 300 MG PO HS, (Reported) Venlafaxine HCl 150 Mg Tab.er.24, 150 MG PO DAILY, (Reported) Patient Home Medication List Home Medication List Reviewed: Yes Review of Systems Review of Systems Constitutional: see HPI Gastrointestinal: See HPI, Abdominal Pain, Nausea, Vomiting All Other Systems Reviewed Negative Unless Noted: Yes (Negative excepted noted.) Past Uapeeef-Hdgmnh-Pjtmrb Hx Patient Social History Type Used: Cigarettes 2nd Hand Smoke Exposure: Yes Recent Hopitalizations: No Immunizations Up To Date Date of Pneumonia Vaccine: May 19, 2015 Date of Influenza Vaccine: Mar 29, 2018 Seasonal Allergies Seasonal Allergies: Yes Past Medical History Surgeries: Yes (knee and ankle surgery) Gallbladder, Hysterectomy, Orthopedic Respiratory: Yes Asthma Currently Using CPAP: Yes Currently Using BIPAP: No Cardiac: No Neurological: No 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 7.0oz. 93.539234er; 38.1 BMI Method:Stated General Appearance: WD/WN, no apparent distress, mild distress, obese HEENT: normal ENT inspection Respiratory: no respiratory distress Cardiovascular: regular rate, rhythm Gastrointestinal: soft; No guarding, No rebound; tenderness (mild) Rectal: deferred Neurologic/Psychiatric: no motor/sensory deficits, alert, oriented x 3, depressed affect Skin: warm/dry Progress/Results/Core Measures Results/Orders Lab Results Laboratory Tests Test 10/01/18 11:05 10/01/18 11:10 Range/Units Urine Color YELLOW Urine Clarity CLEAR Urine pH 6 5-9 Urine Specific Barnard 1.025 H 1.016-1.022 Urine Protein 1+ H NEGATIVE Urine Glucose (UA) NEGATIVE NEGATIVE Urine Ketones TRACE H NEGATIVE Urine Nitrite NEGATIVE NEGATIVE Urine Bilirubin 1+ H NEGATIVE Urine Urobilinogen NORMAL NORMAL MG/DL Urine Leukocyte Esterase NEGATIVE NEGATIVE Urine RBC (Auto) NEGATIVE NEGATIVE Urine RBC NONE /HPF Urine WBC NONE /HPF Urine Squamous Epithelial Cells 2-5 /HPF Urine Crystals NONE /LPF Urine Bacteria NEGATIVE /HPF Urine Casts NONE /LPF Urine Mucus SMALL H /LPF Urine Culture Indicated NO Urine Opiates Screen NEGATIVE NEGATIVE Urine Oxycodone Screen NEGATIVE NEGATIVE Urine Methadone Screen NEGATIVE NEGATIVE Urine Propoxyphene Screen NEGATIVE NEGATIVE Urine Barbiturates Screen NEGATIVE NEGATIVE Ur Tricyclic Antidepressants Screen NEGATIVE NEGATIVE Urine Phencyclidine Screen NEGATIVE NEGATIVE Urine Amphetamines Screen NEGATIVE NEGATIVE Urine Methamphetamines Screen NEGATIVE NEGATIVE Urine Benzodiazepines Screen NEGATIVE NEGATIVE Urine Cocaine Screen NEGATIVE NEGATIVE Urine Cannabinoids Screen POSITIVE H NEGATIVE White Blood Count 8.5 4.3-11.0 10^3/uL Red Blood Count 4.28 L 4.35-5.85 10^6/uL Hemoglobin 14.0 11.5-16.0 G/DL Hematocrit 41 35-52 % Mean Corpuscular Volume 95 80-99 FL Mean Corpuscular Hemoglobin 33 25-34 PG Mean Corpuscular Hemoglobin Concent 35 32-36 G/DL Red Cell Distribution Width 12.6 10.0-14.5 % Platelet Count 212 130-400 10^3/uL Mean Platelet Volume 10.9 H 7.4-10.4 FL Neutrophils (%) (Auto) 73 42-75 % Lymphocytes (%) (Auto) 18 12-44 % Monocytes (%) (Auto) 6 0-12 % Eosinophils (%) (Auto) 1 0-10 % Basophils (%) (Auto) 0 0-10 % Neutrophils # (Auto) 6.2 1.8-7.8 X 10^3 Lymphocytes # (Auto) 1.6 1.0-4.0 X 10^3 Monocytes # (Auto) 0.5 0.0-1.0 X 10^3 Eosinophils # (Auto) 0.1 0.0-0.3 10^3/uL Basophils # (Auto) 0.0 0.0-0.1 10^3/uL Sodium Level 139 135-145 MMOL/L Potassium Level 4.0 3.6-5.0 MMOL/L Chloride Level 102 98-107 MMOL/L Carbon Dioxide Level 23 21-32 MMOL/L Anion Gap 14 5-14 MMOL/L Blood Urea Nitrogen 7 7-18 MG/DL Creatinine 0.87 0.60-1.30 MG/DL Estimat Glomerular Filtration Rate > 60 BUN/Creatinine Ratio 8 Glucose Level 172 H 70-105 MG/DL Calcium Level 9.1 8.5-10.1 MG/DL Corrected Calcium 8.9 8.5-10.1 MG/DL Magnesium Level 1.7 L 1.8-2.4 MG/DL Total Bilirubin 0.5 0.1-1.0 MG/DL Aspartate Amino Transf (AST/SGOT) 32 5-34 U/L Alanine Aminotransferase (ALT/SGPT) 17 0-55 U/L Alkaline Phosphatase 59 40-136 U/L Total Protein 7.5 6.4-8.2 GM/DL Albumin 4.3 3.2-4.5 GM/DL Lipase 38 8-78 U/L My Orders Orders - BRIAN WRIGHT DO Cbc With Automated Diff (10/01/18 11:21) Comprehensive Metabolic Panel (10/01/18 11:21) Lipase (10/01/18 11:21) Ua Culture If Indicated (10/01/18 11:21) Drug Screen Stat (Urine) (10/01/18 11:21) Ed Iv/Invasive Line Start (10/01/18 11:23) Ondansetron Injection (Zofran Injectio (10/01/18 11:45) Ketorolac Injection (Toradol Injection) (10/01/18 11:45) Diphenhydramine Injection (Benadryl Inje (10/01/18 11:45) Magnesium (10/01/18 11:39) Ct Abdomen/Pelvis W (10/01/18 12:07) Iohexol Injection (Omnipaque 350 Mg/Ml 1 (10/01/18 12:30) Received Contrast (Hold Metformin- Contr (10/01/18 12:30) Sodium Chloride Flush (Catheter Flush Sy (10/01/18 12:30) Ns (Ivpb) (Sodium Chloride 0.9% Ivpb Bag (10/01/18 12:30) Famotidine Injection (Pepcid Injection) (10/01/18 13:00) Prochlorperazine Injection (Compazine In (10/01/18 13:15) Haloperidol Injection (Haldol Injectio (10/01/18 13:45) Medications Given in ED Current Medications Medications Dose Ordered Sig/Ashley Route Start Time Stop Time Status Last Admin Dose Admin Diphenhydramine HCl 50 mg ONCE ONCE IV 10/01/18 11:45 10/01/18 11:46 DC 10/01/18 11:50 50 MG Famotidine 20 mg ONCE ONCE IVP 10/01/18 13:00 10/01/18 13:01 DC 10/01/18 13:08 20 MG Iohexol 100 ml ONCE ONCE IV 10/01/18 12:30 10/01/18 12:31 DC 10/01/18 12:35 100 ML Ketorolac Tromethamine 15 mg ONCE ONCE IVP 10/01/18 11:45 10/01/18 11:46 DC 10/01/18 11:50 15 MG Ondansetron HCl 16 mg ONCE ONCE IVP 10/01/18 11:45 10/01/18 11:46 DC 10/01/18 11:50 16 MG Prochlorperazine Edisylate 10 mg ONCE ONCE IV 10/01/18 13:15 10/01/18 13:16 DC 10/01/18 13:08 10 MG Sodium Chloride 10 ml NEEDED PRN IV 10/01/18 12:30 10/01/18 12:35 10 ML Sodium Chloride 100 ml ONCE ONCE IV 10/01/18 12:30 10/01/18 12:31 DC 10/01/18 12:35 100 ML Vital Signs/I&O 10/01/18 10/01/18 10:55 11:50 Temp 97.6 97.6 Pulse 57 Resp 20 B/P (MAP) 167/87 (113) Pulse Ox 97 O2 Delivery Room Air Progress Progress Note : Progress Note Little to no improvement c/ the Toradol, Benadryl, and high dose Zofran. Labs and CT generally unremarkable. UDS was (+) for Marijuana use, but patient denies heavy THC use. Going to try IV Compazine and Pepcid. Departure Impression Primary Impression: Cyclical vomiting syndrome Additional Impression: ? Cannabinoid hyperemesis syndrome Disposition: 01 HOME, SELF-CARE Condition: Stable Departure-Patient Inst. Decision time for Depature: 14:03 Referrals: SELFGLORY MD (PCP/Family) Primary Care Physician Patient Instructions: Nausea and Vomiting, Adult (DC) Add. Discharge Instructions: All discharge instructions reviewed with patient and/or family. Voiced understanding. RECOMMEND FOLLOWING UP WITH 'S GI SPECIALIST REGARDING YOUR RECURRENT BOUTS OF VOMITING. RECOMMEND REFRAINING FROM MARIJUANA USE FOR @ LEAST 2 WEEKS TO SEE IF THAT HELPS. BRIAN WRIGHT DO Oct 01, 2018 11:21
[2018-10-01 11:30] LABS: HEMATOCRIT 41 % (35-52); MEAN CORPUSCULAR HEMOGLOBIN 33 PG (25-34); MEAN CORPUSCULAR HGB CONC 35 G/DL (32-36); MEAN CORPUSCULAR VOLUME 95 FL (80-99); RED CELL DISTRIBUTION WIDTH 12.6 % (10.0-14.5); WHITE BLOOD COUNT 8.5 10^3/uL (4.3-11.0)
[2018-10-01 11:31] LABS: BASOPHILS % (AUTO) 0 % (0-10); EOSINOPHILS # (AUTO) 0.1 10^3/uL (0.0-0.3); EOSINOPHILS % (AUTO) 1 % (0-10); LYMPHOCYTES # (AUTO) 1.6 X 10^3 (1.0-4.0); LYMPHOCYTES % (AUTO) 18 % (12-44); MEAN PLATELET VOLUME 10.9 FL (7.4-10.4); MONOCYTES # (AUTO) 0.5 X 10^3 (0.0-1.0); MONOCYTES % (AUTO) 6 % (0-12); NEUTROPHILS # (AUTO) 6.2 X 10^3 (1.8-7.8); NEUTROPHILS % (AUTO) 73 % (42-75); PLATELET COUNT 212 10^3/uL (130-400)
[2018-10-01 11:38] LABS: BACTERIA,URINE NEGATIVE /HPF; BILIRUBIN,URINE 1+ (NEGATIVE); CLARITY,URINE CLEAR; COLOR,URINE YELLOW; GLUCOSE, URINE (UA) NEGATIVE (NEGATIVE); KETONES,URINE TRACE (NEGATIVE); LEUKOCYTE ESTERASE ,URINE NEGATIVE (NEGATIVE); NITRITE,URINE NEGATIVE (NEGATIVE); PH,URINE 6 (5-9); PROTEIN,URINE 1+ (NEGATIVE); UROBILINOGEN,URINE NORMAL (NORMAL)
[2018-10-01 11:42] LABS: AMPHETAMINE SCREEN, URINE NEGATIVE (NEGATIVE); BARBITURATE SCREEN URINE NEGATIVE (NEGATIVE); BENZODIAZEPINES SCREEN URINE NEGATIVE (NEGATIVE); CANNABINOID SCREEN, URINE POSITIVE (NEGATIVE); COCAINE SCREEN URINE NEGATIVE (NEGATIVE); METHADONE STAT NEGATIVE (NEGATIVE); METHAMPHETAMINE SCREEN URINE S NEGATIVE (NEGATIVE); OPIATE SCREEN URINE NEGATIVE (NEGATIVE); OXYCODONE STAT NEGATIVE (NEGATIVE); PROPOXYPHENE STAT NEGATIVE (NEGATIVE); TRICYCLIC ANTIDEPRESSANTS SCRE NEGATIVE (NEGATIVE)
[2018-10-01 11:45] LABS: ALANINE AMINOTRANSFERASE 17 U/L (0-55); ALBUMIN 4.3 GM/DL (3.2-4.5); ALKALINE PHOSPHATASE 59 U/L (40-136); BILIRUBIN,TOTAL 0.5 MG/DL (0.1-1.0); BUN/CREATININE RATIO 8; CALCIUM 9.1 MG/DL (8.5-10.1); CARBON DIOXIDE 23 MMOL/L (21-32); CHLORIDE 102 MMOL/L (98-107); CREATININE SERUM 0.87 MG/DL (0.60-1.30); GFR ESTIMATED > 60; GLUCOSE 172 MG/DL (70-105); SODIUM 139 MMOL/L (135-145); TOTAL PROTEIN 7.5 GM/DL (6.4-8.2)
[2018-10-01] MEDS ORDERED: diphenhydrAMINE 50 MG/ML INJ (BENADRYL) IV ONE (11:45)
[2018-10-01] MEDS ORDERED: ONDANSETRON 4 MG/2 ML (SDV) Z0FRAN IVP ONE (11:45)
[2018-10-01] MEDS ORDERED: KETOROLAC 30 MG/ML VIAL IVP ONE (11:45)
[2018-10-01 11:46] LABS: LIPASE 38 U/L (8-78)
[2018-10-01] MEDS ORDERED: HOLD METFORMIN - RECEIVED CONTRAST 20 ML VIAL IV SCH (12:30)
[2018-10-01] MEDS ORDERED: CATHETER FLUSH 10 ML SYR IV PRN (12:30)
[2018-10-01] MEDS ORDERED: NS 100 ML (IVPB) BAG IV ONE (12:30)
[2018-10-01] MEDS ORDERED: IOHEXOL 350 MG/ML 100 ML (OMNIPAQUE 350) VIAL IV ONE (12:30)
--- NOTE | 2018-10-01 12:43 | NUR ---
Pt returned from CT and up to bathroom. Retching sounds heard from bathroom on numerous trips to bathroom during visit.
--- NOTE | 2018-10-01 12:54 | Diagnostic Imaging Report ---
PROCEDURE: CT abdomen and pelvis with contrast. TECHNIQUE: Multiple contiguous axial images were obtained through the abdomen and pelvis after administration of intravenous contrast. Auto Exposure Controls were utilized during the CT exam to meet ALARA standards for radiation dose reduction. INDICATION: Nausea and vomiting. COMPARISON: Abdominal and pelvic series radiographs 09/22/2018. FINDINGS: Lung bases are clear. The liver, pancreas, spleen, adrenals, kidneys, collecting systems, bladder and appendix are negative. Hysterectomy. Cholecystectomy. No free intraperitoneal air or fluid. No lymphadenopathy. No evidence of bowel obstruction or inflammation. No acute osseous findings. IMPRESSION: No acute CT findings in the abdomen or pelvis. Dictated by: Dictated on workstation # [id number]
[2018-10-01] MEDS ORDERED: FAMOTIDINE 20MG/2ML IV (PEPCID) IVP ONE (13:00)
[2018-10-01] MEDS ORDERED: PROCHLORPERAZINE 10 MG/2ML INJ (COMPAZINE) IV ONE (13:15)
[2018-10-01] MEDS ORDERED: HALOPERIDOL 5 MG/ML (HALDOL) AMP IV ONE (13:45)
--- NOTE | 2018-10-01 13:45 | NUR ---
Pt to desk asking about discharge plan. Dr Avalos reports planning add'l medication and will write a discharge. Pt making frequent trips to bathroom with very loud retching sounds made in bathroom. Emesis bag in room has approx 30 ml of clear phlegm/saliva appearance. Pt had add'l emesis bag on arrival in room noted to have <50 ml same contents. Pt verbalizes understanding of home instructions reviewed. NIBP rechecks as pt reports she has taken her B/P med today but elevations noted. Pt was recommended to do her f/u as advised, take all meds as prescribed, and return to ER with any concerns/problems.
[2018-10-01 14:15] VITALS: BP 195/83
[2018-10-01] MEDS ORDERED: HALOPERIDOL 5 MG/ML (HALDOL) AMP IM ONE (14:15)
== END 2018-10-01 14:15 | disposition home or self-care (01) ==
LOC: EDUNIT# 10:48 → ER FS 10:50
DX: G43.A0 Cyclical vomiting, in migraine, not intractable (principal); E11.43 Type 2 diabetes mellitus with diabetic autonomic (poly)neuropathy; K31.84 Gastroparesis; J45.909 Unspecified asthma, uncomplicated; B19.20 Unspecified viral hepatitis C without hepatic coma; K21.9 Gastro-esophageal reflux disease without esophagitis; F41.9 Anxiety disorder, unspecified; F32.9 Major depressive disorder, single episode, unspecified; F20.9 Schizophrenia, unspecified; Z91.048 Other nonmedicinal substance allergy status; Z88.8 Allergy status to other drugs, medicaments and biological substances; Z88.5 Allergy status to narcotic agent; Z79.4 Long term (current) use of insulin; Z77.22 Contact with and (suspected) exposure to environmental tobacco smoke (acute) (chronic); Z90.710 Acquired absence of both cervix and uterus; Z98.890 Other specified postprocedural states; Z88.2 Allergy status to sulfonamides; Z91.040 Latex allergy status
CPT/HCPCS: 36415; 74177; 80053; 80306; 81000; 83690; 83735; 85025; 96372; 96374; 96375

== ENCOUNTER 2018-10-09 17:32 | Emergency (ER) | payer MEDICAID ==
[~2018-10-09] VITALS: Ht 157.5 cm; Wt 92.1 kg
[2018-10-09] MEDS ORDERED: LACTATED RINGERS 1,000 ML IV ONE (18:17)
[2018-10-09] MEDS ORDERED: ONDANSETRON 4 MG/2 ML (SDV) Z0FRAN IVP ONE (18:30)
[2018-10-09 19:04] LABS: CHLORIDE 98 MMOL/L (98-107); POTASSIUM 3.6 MMOL/L (3.6-5.0); SODIUM 136 MMOL/L (135-145)
[2018-10-09 19:05] LABS: ALANINE AMINOTRANSFERASE 16 U/L (0-55); ALKALINE PHOSPHATASE 53 U/L (40-136); BILIRUBIN,TOTAL 0.4 MG/DL (0.1-1.0); BUN/CREATININE RATIO 14; CALCIUM 9.2 MG/DL (8.5-10.1); CARBON DIOXIDE 25 MMOL/L (21-32); CREATININE SERUM 0.63 MG/DL (0.60-1.30); GFR ESTIMATED > 60; GLUCOSE 173 MG/DL (70-105); LIPASE 52 U/L (8-78)
[2018-10-09 19:06] LABS: HEMATOCRIT 39 % (35-52); HEMOGLOBIN 13.8 G/DL (11.5-16.0); MEAN CORPUSCULAR HEMOGLOBIN 33 PG (25-34); MEAN CORPUSCULAR HGB CONC 35 G/DL (32-36); MEAN CORPUSCULAR VOLUME 93 FL (80-99); MEAN PLATELET VOLUME 10.1 FL (7.4-10.4); PLATELET COUNT 227 10^3/uL (130-400); RED CELL DISTRIBUTION WIDTH 12.9 % (10.0-14.5); WHITE BLOOD COUNT 8.5 10^3/uL (4.3-11.0)
[2018-10-09 19:07] LABS: BASOPHILS % (AUTO) 0 % (0-10); EOSINOPHILS # (AUTO) 0.1 10^3/uL (0.0-0.3); EOSINOPHILS % (AUTO) 2 % (0-10); LYMPHOCYTES # (AUTO) 2.1 X 10^3 (1.0-4.0); LYMPHOCYTES % (AUTO) 24 % (12-44); MONOCYTES # (AUTO) 0.7 X 10^3 (0.0-1.0); MONOCYTES % (AUTO) 8 % (0-12); NEUTROPHILS # (AUTO) 5.6 X 10^3 (1.8-7.8); NEUTROPHILS % (AUTO) 66 % (42-75)
[2018-10-09 19:08] LABS: AMPHETAMINE SCREEN, URINE NEGATIVE (NEGATIVE); BARBITURATE SCREEN URINE NEGATIVE (NEGATIVE); BENZODIAZEPINES SCREEN URINE NEGATIVE (NEGATIVE); CANNABINOID SCREEN, URINE POSITIVE (NEGATIVE); CLARITY,URINE CLEAR; COCAINE SCREEN URINE NEGATIVE (NEGATIVE); COLOR,URINE YELLOW; METHADONE STAT NEGATIVE (NEGATIVE); METHAMPHETAMINE SCREEN URINE S NEGATIVE (NEGATIVE); OPIATE SCREEN URINE NEGATIVE (NEGATIVE); OXYCODONE STAT NEGATIVE (NEGATIVE); PROPOXYPHENE STAT NEGATIVE (NEGATIVE); PROTEIN,URINE NEGATIVE (NEGATIVE); TRICYCLIC ANTIDEPRESSANTS SCRE NEGATIVE (NEGATIVE)
[2018-10-09 19:09] LABS: BACTERIA,URINE NEGATIVE /HPF; BILIRUBIN,URINE NEGATIVE (NEGATIVE); GLUCOSE, URINE (UA) 1+ (NEGATIVE); KETONES,URINE NEGATIVE (NEGATIVE); LEUKOCYTE ESTERASE ,URINE NEGATIVE (NEGATIVE); NITRITE,URINE NEGATIVE (NEGATIVE); RBC,URINE 0-2 /HPF; UROBILINOGEN,URINE 0.2 MG/DL (NORMAL); WBC,URINE 0-2 /HPF
[2018-10-09] MEDS ORDERED: FAMOTIDINE 20MG/2ML IV (PEPCID) IVP ONE (19:15)
[2018-10-09] MEDS ORDERED: SUCR1TAB36 PO (19:24)
[2018-10-09] MEDS ORDERED: PROM25TA14 PO (19:24)
--- NOTE | 2018-10-09 19:24 | ED General ---
General Chief Complaint: - Urinary Stated Complaint: VOMITING, PAIN WITH URINATION Nursing Triage Note: Pt presents to ED reporting vomiting x 2 weeks. Hx DM along with cyclic vomiting with numerous ER visits. Pt c/o kidney/bladder pain since Tuesday. Pt has sx burning with urination. Nursing Sepsis Screen: No Definite Risk Source of Information: Patient, Old Records Exam Limitations: No Limitations History of Present Illness Date Seen by Provider: Oct 09, 2018 Time Seen by Provider: 18:17 Initial Comments This 43-year-old woman presents to the emergency room with complaints of nausea, vomiting, and upper abdominal pain that has been ongoing for about 2 weeks. She has had repeated episodes of similar symptoms over the past year. She has been seen by Dr. Herndon, passenger tire builder at [facility]. She reports she has received tentative diagnoses of gastroparesis, ulcers, and cyclic vomiting. Patient also has insulin-dependent diabetes. She does not know what her blood sugars have been recently because she accidentally ran over her glucometer. She has continued her usual doses of insulin. For nausea and vomiting she has used scopolamine patch, Phenergan suppositories, Zofran, and Phenergan pills. She cannot use Reglan due to extrapyramidal symptoms. She reports having some discomfort with urination and urinating only small amounts. She has had some bilateral lower back pain as well. She denies any alcohol use but does smoke tobacco and marijuana. Her last marijuana use was less than a month ago. She also has some diarrhea associated with her other symptoms. She denies fever but states she has felt cold. Her primary care provider is Dr. Euceda. She also r eports taking omeprazole as part of her treatment regimen. However, she states her passenger tire builder told her to stop sucralfate. She states sucralfate significantly improved her symptoms previously. Allergies and Home Medications Allergies Coded Allergies: adhesive tape (Verified Allergy, Unknown, 09/28/18) chlorhexidine (Verified Allergy, Unknown, 07/29/18) fluvoxamine (Verified Allergy, Unknown, 07/29/18) hydromorphone (Verified Allergy, Unknown, 07/29/18) latex (Verified Allergy, Unknown, 07/29/18) meperidine (Verified Allergy, Unknown, 07/29/18) morphine (Verified Allergy, Unknown, 05/19/18) sulfamethoxazole (Verified Allergy, Unknown, 05/19/18) trimethoprim (Verified Allergy, Unknown, 05/19/18) Home Medications Acetaminophen 500 Mg Tablet, 500 MG PO Q8H PRN for PAIN-BREAKTHROUGH, (Reported) Albuterol Sulfate 1 Puff Puff, 2 PUFF IH Q4H PRN for SHORTNESS OF BREATH, (Reported) 1 PUFF = 90 MCG Insulin Aspart 300 Units/3 Ml Solution, 7 UNITS SQ AC Prescribed by: OSMAR JEROME on 05/23/18954 Insulin Detemir 100 Unit/1 Ml Insuln.pen, 20 UNIT SQ HS Prescribed by: OSMAR JEROME on 05/23/18954 Ipratropium/Albuterol Sulfate 3 Ml Ampul.neb, 3 ML IH Q4H PRN for SHORTNESS OF BREATH, (Reported) Lisinopril 20 Mg Tablet, 20 MG PO DAILY Prescribed by: OSMAR JEROME on 05/23/18954 Metformin HCl 750 Mg Tab.er.24h, 750 MG PO BID, (Reported) Metoclopramide HCl 10 Mg Tablet, 10 MG PO QID, (Reported) Omeprazole 20 Mg Capsule.dr, 20 MG PO HS, (Reported) Ondansetron 4 Mg Tab.rapdis, 4 MG PO Q4H PRN for NAUSEA/VOMITING-1ST LINE, (Reported) Promethazine HCl 25 Mg Tablet, 25 MG PO Q6H PRN for NAUSEA/VOMITING, (Reported) Promethazine HCl 25 Mg Tablet, 25 MG PO Q6H PRN for NAUSEA/VOMITING-2ND LINE Prescribed by: ADA IRELAND on 10/09/181923 Sucralfate 1 Gm Tablet, 1 GM PO QID Mixed with 10 mL water to make a slurry. Take 30 minutes before meals and bedtime. Prescribed by: ADA IRELAND on 10/09/181923 Tramadol HCl 50 Mg Tablet, 50 MG PO Q6H PRN for PAIN-MILD, (Reported) Trazodone HCl 150 Mg Tablet, 300 MG PO HS, (Reported) Venlafaxine HCl 150 Mg Tab.er.24, 150 MG PO DAILY, (Reported) Patient Home Medication List Home Medication List Reviewed: Yes Review of Systems Review of Systems Constitutional: no symptoms reported EENTM: no symptoms reported Respiratory: no symptoms reported Cardiovascular: no symptoms reported Gastrointestinal: no symptoms reported Genitourinary: see HPI : No Musculoskeletal: see HPI Skin: no symptoms reported Psychiatric/Neurological: No Symptoms Reported Hematologic/Lymphatic: No Symptoms Reported Past Eqdlcko-Zqsyfj-Gqbolh Hx Past Med/Social Hx: Reviewed and Corrections made Patient Social History Alcohol Use: Denies Use Recreational Drug Use: No Smoking Status: Current Everyday Smoker Type Used: Cigarettes 2nd Hand Smoke Exposure: Yes Recent Foreign Travel: No Contact w/Someone Who Travel: No Recent Infectious Disease Expo: No Recent Hopitalizations: No Physical Abuse: No Sexual Abuse: No Mistreated: No Fear: No Immunizations Up To Date Date of Pneumonia Vaccine: May 19, 2015 Date of Influenza Vaccine: Mar 29, 2018 Seasonal Allergies Seasonal Allergies: Yes Past Medical History Surgeries: Yes (knee and ankle surgery) Gallbladder, Hysterectomy, Orthopedic Respiratory: Yes Asthma Currently Using CPAP: Yes Currently Using BIPAP: No Cardiac: No Neurological: No : No Female 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 Disorders: Denies 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 Sexually Transmitted Disease: No HIV/AIDS: No Genitourinary: No Gastrointestinal: Yes (Gastroparesis; Hepatitis C; possible cyclic vomiting) Gastroesophageal Reflux, Ulcer Musculoskeletal: No Endocrine: Yes Diabetes, Insulin dep HEENT: Yes (wears glasses) Hearing Impairment: Denies Cancer: No Psychosocial: Yes (schizoeffective disorder) Anxiety, Depression Integumentary: No Blood Disorders: No Physical Exam Vital Signs Vital Signs - First Documented 10/09/18 17:54 Temp 97.9 Pulse 105 Resp 24 B/P (MAP) 144/91 (108) Pulse Ox 98 O2 Delivery Room Air Capillary Refill : Less Than 3 Seconds Height, Weight, BMI Height: 5'2.00" Weight: 203lbs. oz. 92.904310bq; 38.1 BMI Method:Stated General Appearance: No Apparent Distress, WD/WN HEENT: PERRL/EOMI, Normal ENT Inspection Neck: Normal Inspection Respiratory: Lungs Clear, Normal Breath Sounds, No Accessory Muscle Use, No Respiratory Distress Cardiovascular: Regular Rate, Rhythm, No Edema, No Murmur Gastrointestinal: Normal Bowel Sounds, Soft, Tenderness (across the upper abdomen) Extremity: Normal Inspection, No Pedal Edema Neurologic/Psychiatric: Alert, Oriented x3, No Motor/Sensory Deficits, Normal Mood/Affect, wedger and gluer II-XII Norm as Tested Skin: Normal Color, Warm/Dry Progress/Results/Core Measures Suspected Sepsis Recent Fever Within 48 Hours: No Infection Criteria Present: None New/Unexplained Altered Menta: No Sepsis Screen: No Definite Risk SIRS Temperature:97.9 Pulse: 105 Respiratory Rate: 24 Laboratory Tests 10/09/18 18:31: White Blood Count 8.5 Blood Pressure 144 /91 Mean: 108 Laboratory Tests 10/09/18 18:31: Creatinine 0.63, Platelet Count 227, Total Bilirubin 0.4 Results/Orders Lab Results Laboratory Tests Test 10/09/18 17:55 10/09/18 18:09 10/09/18 18:31 Range/Units Urine Color YELLOW Urine Clarity CLEAR Urine pH 7.0 5-9 Urine Specific [place] 1.015 L 1.016-1.022 Urine Protein NEGATIVE NEGATIVE Urine Glucose (UA) 1+ H NEGATIVE Urine Ketones NEGATIVE NEGATIVE Urine Nitrite NEGATIVE NEGATIVE Urine Bilirubin NEGATIVE NEGATIVE Urine Urobilinogen 0.2 NORMAL MG/DL Urine Leukocyte Esterase NEGATIVE NEGATIVE Urine RBC (Auto) NEGATIVE NEGATIVE Urine RBC 0-2 /HPF Urine WBC 0-2 /HPF Urine Squamous Epithelial Cells 10-25 H /HPF Urine Crystals NONE /LPF Urine Bacteria NEGATIVE /HPF Urine Casts NONE /LPF Urine Mucus SMALL H /LPF Urine Culture Indicated NO Urine Opiates Screen NEGATIVE NEGATIVE Urine Oxycodone Screen NEGATIVE NEGATIVE Urine Methadone Screen NEGATIVE NEGATIVE Urine Propoxyphene Screen NEGATIVE NEGATIVE Urine Barbiturates Screen NEGATIVE NEGATIVE Ur Tricyclic Antidepressants Screen NEGATIVE NEGATIVE Urine Phencyclidine Screen NEGATIVE NEGATIVE Urine Amphetamines Screen NEGATIVE NEGATIVE Urine Methamphetamines Screen NEGATIVE NEGATIVE Urine Benzodiazepines Screen NEGATIVE NEGATIVE Urine Cocaine Screen NEGATIVE NEGATIVE Urine Cannabinoids Screen POSITIVE H NEGATIVE Glucometer 160 H 70-110 MG/DL White Blood Count 8.5 4.3-11.0 10^3/uL Red Blood Count 4.21 L 4.35-5.85 10^6/uL Hemoglobin 13.8 11.5-16.0 G/DL Hematocrit 39 35-52 % Mean Corpuscular Volume 93 80-99 FL Mean Corpuscular Hemoglobin 33 25-34 PG Mean Corpuscular Hemoglobin Concent 35 32-36 G/DL Red Cell Distribution Width 12.9 10.0-14.5 % Platelet Count 227 130-400 10^3/uL Mean Platelet Volume 10.1 7.4-10.4 FL Neutrophils (%) (Auto) 66 42-75 % Lymphocytes (%) (Auto) 24 12-44 % Monocytes (%) (Auto) 8 0-12 % Eosinophils (%) (Auto) 2 0-10 % Basophils (%) (Auto) 0 0-10 % Neutrophils # (Auto) 5.6 1.8-7.8 X 10^3 Lymphocytes # (Auto) 2.1 1.0-4.0 X 10^3 Monocytes # (Auto) 0.7 0.0-1.0 X 10^3 Eosinophils # (Auto) 0.1 0.0-0.3 10^3/uL Basophils # (Auto) 0.0 0.0-0.1 10^3/uL Sodium Level 136 135-145 MMOL/L Potassium Level 3.6 3.6-5.0 MMOL/L Chloride Level 98 98-107 MMOL/L Carbon Dioxide Level 25 21-32 MMOL/L Anion Gap 13 5-14 MMOL/L Blood Urea Nitrogen 9 7-18 MG/DL Creatinine 0.63 0.60-1.30 MG/DL Estimat Glomerular Filtration Rate > 60 BUN/Creatinine Ratio 14 Glucose Level 173 H 70-105 MG/DL Calcium Level 9.2 8.5-10.1 MG/DL Corrected Calcium 9.2 8.5-10.1 MG/DL Total Bilirubin 0.4 0.1-1.0 MG/DL Aspartate Amino Transf (AST/SGOT) 22 5-34 U/L Alanine Aminotransferase (ALT/SGPT) 16 0-55 U/L Alkaline Phosphatase 53 40-136 U/L Total Protein 7.0 6.4-8.2 GM/DL Albumin 4.0 3.2-4.5 GM/DL Lipase 52 8-78 U/L My Orders Orders - ADA ROBERTSON MD Cbc With Automated Diff (10/09/18 18:17) Comprehensive Metabolic Panel (10/09/18 18:17) Lipase (10/09/18 18:17) Ed Iv/Invasive Line Start (10/09/18 18:17) Lactated Ringers (Lr 1000 Ml Iv Solution (10/09/18 18:17) Ua Culture If Indicated (10/09/18 18:17) Ondansetron Injection (Zofran Injectio (10/09/18 18:30) Drug Screen Stat (Urine) (10/09/18 18:23) Famotidine Injection (Pepcid Injection) (10/09/18 19:15) Medications Given in ED Current Medications Medications Dose Ordered Sig/Ashley Route Start Time Stop Time Status Last Admin Dose Admin Famotidine 20 mg ONCE ONCE IVP 10/09/18 19:15 10/09/18 19:16 DC 10/09/18 19:21 20 MG Lactated Ringer's 1,000 ml @ 0 mls/hr Q0M ONCE IV 10/09/18 18:17 10/09/18 18:19 DC 10/09/18 18:40 0 MLS/HR Ondansetron HCl 8 mg ONCE ONCE IVP 10/09/18 18:30 10/09/18 18:31 DC 10/09/18 18:40 8 MG Vital Signs/I&O 10/09/18 10/09/18 17:54 19:33 Temp 97.9 Pulse 105 82 Resp 24 16 B/P (MAP) 144/91 (108) 129/88 (102) Pulse Ox 98 98 O2 Delivery Room Air Room Air Capillary Refill : Less Than 3 Seconds Blood Pressure Mean: 108 Progress Note : Progress Note Labs were unremarkable. Patient was treated with Zofran and Pepcid with good results. A liter of IV fluids was infused. Sucralfate was prescribed again to add to her treatment regimen. Workup did not reveal a cause for her dysuria. Patient denies any skin irritation problems that could be causing the discomfort. Departure Impression Primary Impression: Recurrent vomiting Additional Impressions: Upper abdominal pain Dysuria Disposition: 01 HOME, SELF-CARE Condition: Improved Departure-Patient Inst. Decision time for Depature: 19:20 Referrals: SELFGLORY MD (PCP/Family) Primary Care Physician Patient Instructions: Dysuria, Adult (DC), Nausea and Vomiting, Adult Add. Discharge Instructions: Follow-up with your passenger tire builder and your primary care provider soon as possible. Continue taking omeprazole and add Carafate (sucralfate) as prescribed. The cause of your dysuria was not determined in the emergency room. Please discuss this with your primary care provider. Avoid use of marijuana as this may be a contributor being factor to your nausea and vomiting. Effects of marijuana use may be delayed, even weeks after use. Return to the emergency room if you have worsening symptoms. All discharge instructions reviewed with patient and/or family. Voiced understanding. Scripts Promethazine HCl (Promethazine Tablet) 25 Mg Tablet 25 MG PO Q6H PRN for NAUSEA/VOMITING-2ND LINE, #10 TAB Prov: ADA ROBERTSON MD 10/09/18 Sucralfate (Carafate) 1 Gm Tablet 1 GM PO QID, #120 TAB Mixed with 10 mL water to make a slurry. Take 30 minutes before meals and bedtime. Prov: ADA ROBERTSON MD 10/09/18 ADA ROBERTSON MD Oct 09, 2018 19:24
[2018-10-09 19:33] VITALS: BP 129/88
== END 2018-10-09 19:35 | disposition home or self-care (01) ==
LOC: EDUNIT# 17:32 → ER FS 17:34
DX: R11.2 Nausea with vomiting, unspecified (principal); R10.10 Upper abdominal pain, unspecified; R30.0 Dysuria; E11.43 Type 2 diabetes mellitus with diabetic autonomic (poly)neuropathy; K31.84 Gastroparesis; B19.20 Unspecified viral hepatitis C without hepatic coma; K21.9 Gastro-esophageal reflux disease without esophagitis; J45.909 Unspecified asthma, uncomplicated; F25.9 Schizoaffective disorder, unspecified; F41.9 Anxiety disorder, unspecified; F32.9 Major depressive disorder, single episode, unspecified; F17.210 Nicotine dependence, cigarettes, uncomplicated; Z91.048 Other nonmedicinal substance allergy status; Z88.8 Allergy status to other drugs, medicaments and biological substances; Z91.040 Latex allergy status; Z87.19 Personal history of other diseases of the digestive system; Z90.710 Acquired absence of both cervix and uterus; Z98.890 Other specified postprocedural states; Z88.2 Allergy status to sulfonamides; Z79.4 Long term (current) use of insulin
CPT/HCPCS: 36415; 80053; 80306; 81000; 82962; 83690; 85025; 96361; 96374; 96375

== ENCOUNTER 2018-11-25 09:16 | Emergency (ER) | payer MEDICAID | END 2018-11-25 14:50 | disposition short-term general hospital (02) | LOC: ER FS 09:16 ==

== ENCOUNTER 2019-02-02 14:55 | Emergency (ER) | payer MEDICAID ==
[~2019-02-02] VITALS: Ht 157.4 cm; Wt 87.7 kg
[~2019-02-02 14:55] MED LIST changes: -OMEP20CA12 PO; +OMEP20CA13 PO; +SUCR1TAB36 PO
[2019-02-02] MEDS ORDERED: chlorproMAZINE 25MG/ML INJ (THORAZINE) 2 ML AMP IM ONE (15:15)
[2019-02-02] MEDS ORDERED: KETAMINE/NaCl 50 MG/5 ML SYRINGE IV ONE (15:15)
[2019-02-02] MEDS ORDERED: diphenhydrAMINE 50 MG/ML INJ (BENADRYL) IVP ONE (15:15)
[2019-02-02] MEDS ORDERED: NS IV 1000 ML 1,000 ML IV SCH (15:18)
[2019-02-02 15:24] LABS: BASOPHILS % (AUTO) 0 % (0-10); EOSINOPHILS % (AUTO) 0 % (0-10); HEMATOCRIT 43 % (35-52); HEMOGLOBIN 15.2 G/DL (11.5-16.0); LYMPHOCYTES # (AUTO) 1.7 X 10^3 (1.0-4.0); LYMPHOCYTES % (AUTO) 14 % (12-44); MEAN CORPUSCULAR HEMOGLOBIN 32 PG (25-34); MEAN CORPUSCULAR HGB CONC 35 G/DL (32-36); MEAN CORPUSCULAR VOLUME 91 FL (80-99); MEAN PLATELET VOLUME 10.5 FL (7.4-10.4); MONOCYTES # (AUTO) 0.5 X 10^3 (0.0-1.0); MONOCYTES % (AUTO) 4 % (0-12); NEUTROPHILS # (AUTO) 9.7 X 10^3 (1.8-7.8); NEUTROPHILS % (AUTO) 81 % (42-75); PLATELET COUNT 246 10^3/uL (130-400); RED CELL DISTRIBUTION WIDTH 12.6 % (10.0-14.5)
--- NOTE | 2019-02-02 15:31 | ED GI ---
General Chief Complaint: Abdominal/GI Problems Stated Complaint: VOMITING Source of Information: Patient Exam Limitations: No Limitations History of Present Illness Date Seen by Provider: Feb 02, 2019 Time Seen by Provider: 15:25 Initial Comments 43-year-old female presents with abdominal discomfort, vomiting 2 days. Patient reports that she cannot keep anything down. Patient has a history of chronic abdominal issues with gastroparesis with chronic vomiting. Patient reports that she was doing well for a while after a Botox injection into her pylorus. Patient reports however that now that has wore off that vomiting and worsened. 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 Patient comes in today because she states that over the last 2 days she just cannot keep anything down and her home medication and Zofran is not working. Patient reports that she had been on Phenergan and Reglan in the past but was taken off of it them because she develoved dyskinesia. She pain is in the epigastric region which is consistent with her past presentations. Allergies and Home Medications Allergies Coded Allergies: adhesive tape (Verified Allergy, Unknown, 09/28/18) chlorhexidine (Verified Allergy, Unknown, 07/29/18) fluvoxamine (Verified Allergy, Unknown, 07/29/18) hydromorphone (Verified Allergy, Unknown, 07/29/18) latex (Verified Allergy, Unknown, 07/29/18) meperidine (Verified Allergy, Unknown, 07/29/18) morphine (Verified Allergy, Unknown, 05/19/18) sulfamethoxazole (Verified Allergy, Unknown, 05/19/18) trimethoprim (Verified Allergy, Unknown, 05/19/18) metoclopramide (Unverified Adverse Reaction, Intermediate, Tardive Dyskinesia, 02/02/19) promethazine (Unverified Adverse Reaction, Intermediate, Tardive Dyskinesia, 02/02/19) Home Medications Acetaminophen 500 Mg Tablet, 500 MG PO Q8H PRN for PAIN-BREAKTHROUGH, (Reported) Albuterol Sulfate 1 Puff Puff, 2 PUFF IH Q4H PRN for SHORTNESS OF BREATH, (Reported) 1 PUFF = 90 MCG Insulin Aspart 300 Units/3 Ml Solution, 7 UNITS SQ AC Prescribed by: OSMAR JEROME on 05/23/18 0955 Insulin Detemir 100 Unit/1 Ml Insuln.pen, 20 UNIT SQ HS Prescribed by: OSMAR JEROME on 05/23/18 0955 Ipratropium/Albuterol Sulfate 3 Ml Ampul.neb, 3 ML IH Q4H PRN for SHORTNESS OF BREATH, (Reported) Lisinopril 20 Mg Tablet, 20 MG PO DAILY Prescribed by: OSMAR JEROME on 05/23/18 0955 Metformin HCl 750 Mg Tab.er.24h, 750 MG PO BID, (Reported) Metoclopramide HCl 10 Mg Tablet, 10 MG PO QID, (Reported) Omeprazole 20 Mg Capsule.dr, 20 MG PO HS, (Reported) Ondansetron 4 Mg Tab.rapdis, 4 MG PO Q4H PRN for NAUSEA/VOMITING-1ST LINE, (R eported) Promethazine HCl 25 Mg Tablet, 25 MG PO Q6H PRN for NAUSEA/VOMITING, (Reported) Promethazine HCl 25 Mg Tablet, 25 MG PO Q6H PRN for NAUSEA/VOMITING-2ND LINE Prescribed by: ADA IRELAND on 10/09/181923 Sucralfate 1 Gm Tablet, 1 GM PO QID Mixed with 10 mL water to make a slurry. Take 30 minutes before meals and bedtime. Prescribed by: ADA IRELAND on 10/09/181923 Tramadol HCl 50 Mg Tablet, 50 MG PO Q6H PRN for PAIN-MILD, (Reported) Trazodone HCl 150 Mg Tablet, 300 MG PO HS, (Reported) Venlafaxine HCl 150 Mg Tab.er.24, 150 MG PO DAILY, (Reported) Patient Home Medication List Home Medication List Reviewed: Yes Review of Systems Review of Systems Constitutional: No chills, No fever EENTM: No Symptoms Reported Respiratory: See HPI Cardiovascular: See HPI Gastrointestinal: Abdominal Pain, Nausea, Vomiting Skin: no symptoms reported Past Qppzaqz-Fqqglu-Efyrcb Hx Past Med/Social Hx: Reviewed Nursing Past Med/Soc Hx Patient Social History Alcohol Use: Denies Use Recreational Drug Use: No (has reported it has been awhile since THC smoked) Drug of Choice: THC Type Used: Cigarettes 2nd Hand Smoke Exposure: Yes Recent Hopitalizations: No Physical Abuse: No Sexual Abuse: No Mistreated: No Fear: No Immunizations Up To Date Date of Pneumonia Vaccine: May 19, 2015 Date of Influenza Vaccine: Mar 29, 2018 Seasonal Allergies Seasonal Allergies: Yes Past Medical History Surgeries: Yes (knee and ankle surgery) Gallbladder, Hysterectomy, Orthopedic Respiratory: Yes Asthma Currently Using CPAP: Yes Currently Using BIPAP: No Cardiac: No Neurological: No Female 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 Sexually Transmitted Disease: No HIV/AIDS: No Genitourinary: No Gastrointestinal: Yes (Gastroparesis; Hepatitis C; possible cyclic vomiting) Gastroesophageal Reflux, Ulcer Musculoskeletal: No Endocrine: Yes Diabetes, Insulin dep HEENT: Yes (wears glasses) Hearing Impairment: Denies Cancer: No Psychosocial: Yes (schizoeffective disorder) Anxiety, Depression Integumentary: No Blood Disorders: No Physical Exam Vital Signs Vital Signs - First Documented 02/02/19 15:05 Temp 36.5 Pulse 88 Resp 24 B/P (MAP) 208/120 (149) Pulse Ox 98 O2 Delivery Room Air Capillary Refill : Height/Weight/BMI Height: 5'2.00" Weight: 184lbs. 7.0oz. 83.286525va; 38.1 BMI Method:Actual General Appearance: mild distress, obese Respiratory: lungs clear, normal breath sounds Cardiovascular: normal peripheral pulses, regular rate, rhythm Gastrointestinal: soft, tenderness (mild epigastric ) Extremities: normal range of motion Neurologic/Psychiatric: no motor/sensory deficits, alert, oriented x 3 Skin: normal color, warm/dry Progress/Results/Core Measures Results/Orders Lab Results Laboratory Tests Test 02/02/19 15:10 Range/Units White Blood Count 12.0 H 4.3-11.0 10^3/uL Red Blood Count 4.73 4.35-5.85 10^6/uL Hemoglobin 15.2 11.5-16.0 G/DL Hematocrit 43 35-52 % Mean Corpuscular Volume 91 80-99 FL Mean Corpuscular Hemoglobin 32 25-34 PG Mean Corpuscular Hemoglobin Concent 35 32-36 G/DL Red Cell Distribution Width 12.6 10.0-14.5 % Platelet Count 246 130-400 10^3/uL Mean Platelet Volume 10.5 H 7.4-10.4 FL Neutrophils (%) (Auto) 81 H 42-75 % Lymphocytes (%) (Auto) 14 12-44 % Monocytes (%) (Auto) 4 0-12 % Eosinophils (%) (Auto) 0 0-10 % Basophils (%) (Auto) 0 0-10 % Neutrophils # (Auto) 9.7 H 1.8-7.8 X 10^3 Lymphocytes # (Auto) 1.7 1.0-4.0 X 10^3 Monocytes # (Auto) 0.5 0.0-1.0 X 10^3 Eosinophils # (Auto) 0.0 0.0-0.3 10^3/uL Basophils # (Auto) 0.0 0.0-0.1 10^3/uL Sodium Level 138 135-145 MMOL/L Potassium Level 4.4 3.6-5.0 MMOL/L Chloride Level 103 98-107 MMOL/L Carbon Dioxide Level 20 L 21-32 MMOL/L Anion Gap 15 H 5-14 MMOL/L Blood Urea Nitrogen 13 7-18 MG/DL Creatinine 0.75 0.60-1.30 MG/DL Estimat Glomerular Filtration Rate > 60 BUN/Creatinine Ratio 17 Glucose Level 186 H 70-105 MG/DL Calcium Level 10.2 H 8.5-10.1 MG/DL Corrected Calcium 9.9 8.5-10.1 MG/DL Total Bilirubin 0.6 0.1-1.0 MG/DL Aspartate Amino Transf (AST/SGOT) 29 5-34 U/L Alanine Aminotransferase (ALT/SGPT) 15 0-55 U/L Alkaline Phosphatase 58 40-136 U/L Total Protein 8.1 6.4-8.2 GM/DL Albumin 4.4 3.2-4.5 GM/DL Lipase 44 8-78 U/L My Orders Orders - AMEEREBECA L DO Cbc With Automated Diff (02/02/19 15:13) Comprehensive Metabolic Panel (02/02/19 15:13) Lipase (02/02/19 15:13) Ketamine/Nacl Syringe (Ketamine/Nacl Syr (02/02/19 15:15) Diphenhydramine Injection (Benadryl Inje (02/02/19 15:15) Chlorpromazine Injection (Thorazine Inje (02/02/19 15:15) Ed Iv/Invasive Line Start (02/02/19 15:18) Ns Iv 1000 Ml (Sodium Chloride 0.9%) (02/02/19 15:18) Medications Given in ED Current Medications Medications Dose Ordered Sig/Ashley Route Start Time Stop Time Status Last Admin Dose Admin Diphenhydramine HCl 25 mg ONCE ONCE IVP 02/02/19 15:15 02/02/19 15:18 DC 02/02/19 15:23 25 MG Ketamine HCl 25 mg ONCE ONCE IV 02/02/19 15:15 02/02/19 15:18 DC 02/02/19 15:25 25 MG Vital Signs/I&O 02/02/19 15:05 Temp 36.5 Pulse 88 Resp 24 B/P (MAP) 208/120 (149) Pulse Ox 98 O2 Delivery Room Air Progress Progress Note : Time: 16:43 Progress Note Patient's abdominal pain improved with treatment. She had no further episodes of vomiting while she was here in the ER. I discussed with her that this is a chronic issue and that she will need to follow-up with her GI physician for fur ther treatment made. That she can continue uses Zofran, alcohol swabs they wished she could smell in her scopolamine patch for her chronic nausea vomiting. She is labs do not show any acute dehydration or acute worrisome changes. She is stable I'll be discharged in stable condition following her IV fluids. Departure Impression Primary Impression: Gastroparesis Additional Impression: Chronic vomiting Disposition: 01 HOME, SELF-CARE Condition: Stable Departure-Patient Inst. Referrals: SELF,GLORY VEGA (PCP/Family) Primary Care Physician Patient Instructions: Nausea and Vomiting, Adult, Gastroparesis (Delayed Gastric Emptying) (DC) Add. Discharge Instructions: Follow up with GI Specialist next week for continuation of care All discharge instructions reviewed with patient and/or family. Voiced understanding. REBECA LUBIN DO Feb 02, 2019 15:31
--- NOTE | 2019-02-02 15:45 | NUR ---
Pt reports feeling better and requests face washed off. Pt has spit/phlegm hanging from lips and warm washcloth used to wipe pt's face. The pt reports feeling very tired and going to try to shut eyes to sleep.
[2019-02-02 15:50] LABS: ALKALINE PHOSPHATASE 58 U/L (40-136); BILIRUBIN,TOTAL 0.6 MG/DL (0.1-1.0); BUN/CREATININE RATIO 17; CALCIUM 10.2 MG/DL (8.5-10.1); CARBON DIOXIDE 20 MMOL/L (21-32); CHLORIDE 103 MMOL/L (98-107); CREATININE SERUM 0.75 MG/DL (0.60-1.30); GFR ESTIMATED > 60; GLUCOSE 186 MG/DL (70-105); POTASSIUM 4.4 MMOL/L (3.6-5.0); SODIUM 138 MMOL/L (135-145)
[2019-02-02 15:51] LABS: ALANINE AMINOTRANSFERASE 15 U/L (0-55); ALBUMIN 4.4 GM/DL (3.2-4.5); LIPASE 44 U/L (8-78); TOTAL PROTEIN 8.1 GM/DL (6.4-8.2)
--- NOTE | 2019-02-02 16:15 | NUR ---
Pt beginning to appear hyperventilating and gagging with occas retching sound.
--- NOTE | 2019-02-02 16:30 | NUR ---
Dr Quiroz to room, reports her labs appear stable with her chronic N/V and gastroporesis issues. She can finish receiving her fluids and be discharged.
[2019-02-02 17:16] VITALS: BP 188/109
--- NOTE | 2019-02-02 17:16 | NUR ---
Patient discharged to home after review of home instructions reviewed and pt verbalizes understanding. Pt encouraged to follow her prescription meds as prescribed and do f/u with PCP along with technical support assistant. Return to ED with any new or worsening sx.
== END 2019-02-02 17:16 | disposition home or self-care (01) ==
LOC: EDUNIT# 14:55 → ER FS 14:56
DX: E11.43 Type 2 diabetes mellitus with diabetic autonomic (poly)neuropathy (principal); K31.84 Gastroparesis; J45.909 Unspecified asthma, uncomplicated; F41.9 Anxiety disorder, unspecified; F32.9 Major depressive disorder, single episode, unspecified; F25.9 Schizoaffective disorder, unspecified; K21.9 Gastro-esophageal reflux disease without esophagitis; B19.20 Unspecified viral hepatitis C without hepatic coma; Z79.4 Long term (current) use of insulin; Z77.22 Contact with and (suspected) exposure to environmental tobacco smoke (acute) (chronic); Z99.89 Dependence on other enabling machines and devices; Z90.710 Acquired absence of both cervix and uterus; Z88.8 Allergy status to other drugs, medicaments and biological substances; Z88.1 Allergy status to other antibiotic agents; Z88.5 Allergy status to narcotic agent; Z88.2 Allergy status to sulfonamides
CPT/HCPCS: 36415; 80053; 83690; 85025; 96361; 96374; 96375

== ENCOUNTER 2019-03-16 13:00 | Emergency (ER) | payer MEDICAID ==
[~2019-03-16] VITALS: Ht 157 cm; Wt 90.0 kg
--- NOTE | 2019-03-16 13:29 | ED GI ---
General Chief Complaint: Abdominal/GI Problems Stated Complaint: VOMITING Nursing Triage Note: CHRONIC CYCLIC VOMITING. PT HAS NOT FOLLOWED UP WITH GI DR AT "IN A LONG TIME" PT WAS BROUGHT OVER BY THE CLININC AFTER THEY ATTEMPTED TO GIVE HER IV FLUIDS AND PHENERGAN BUT THEY WERENT GIVING HER ENOUGH MEDIINE SHE REPORTS BC THEY ONLY GAVE HER 12.5 MG OF PHENERGAN. PER [facility] REPORTS SHE WAS KINKING HER IV AND THEN STATED I JUST WANNA GO TO THE ER. Sepsis Screen: No Definite Risk History of Present Illness Date Seen by Provider: Mar 16, 2019 Time Seen by Provider: 13:15 Initial Comments Hx Diabetic gastroparesis and cyclic vomiting. States she vomits daily. Seen in clinic today and left during treatment and came to ER. c/o nausea and vomiting. Has not seen GI Dr recently and has been getting "botox injections" in her stomach without significant relief. Allergies and Home Medications Allergies Coded Allergies: adhesive tape (Verified Allergy, Unknown, 09/28/18) chlorhexidine (Verified Allergy, Unknown, 07/29/18) fluvoxamine (Verified Allergy, Unknown, 07/29/18) hydromorphone (Verified Allergy, Unknown, 07/29/18) latex (Verified Allergy, Unknown, 07/29/18) meperidine (Verified Allergy, Unknown, 07/29/18) morphine (Verified Allergy, Unknown, 05/19/18) sulfamethoxazole (Verified Allergy, Unknown, 05/19/18) trimethoprim (Verified Allergy, Unknown, 05/19/18) metoclopramide (Unverified Adverse Reaction, Intermediate, Tardive Dyskinesia, 02/02/19) promethazine (Unverified Adverse Reaction, Intermediate, Tardive Dyskinesia, 02/02/19) Home Medications Acetaminophen 500 Mg Tablet, 500 MG PO Q8H PRN for PAIN-BREAKTHROUGH, (Reported) Albuterol Sulfate 1 Puff Puff, 2 PUFF IH Q4H PRN for SHORTNESS OF BREATH, (Reported) 1 PUFF = 90 MCG Insulin Aspart 300 Units/3 Ml Solution, 7 UNITS SQ AC Prescribed by: OSMAR JEROME on 05/23/18 0955 Insulin Detemir 100 Unit/1 Ml Insuln.pen, 20 UNIT SQ HS Prescribed by: OSMAR JEROME on 05/23/18 0955 Ipratropium/Albuterol Sulfate 3 Ml Ampul.neb, 3 ML IH Q4H PRN for SHORTNESS OF BREATH, (Reported) Lisinopril 20 Mg Tablet, 20 MG PO DAILY Prescribed by: OSMAR JEROME on 05/23/18 0955 Metformin HCl 750 Mg Tab.er.24h, 750 MG PO BID, (Reported) Metoclopramide HCl 10 Mg Tablet, 10 MG PO QID, (Reported) Omeprazole 20 Mg Capsule.dr, 20 MG PO HS, (Reported) Ondansetron 4 Mg Tab.rapdis, 4 MG PO Q4H PRN for NAUSEA/VOMITING-1ST LINE, (Reported) Promethazine HCl 25 Mg Tablet, 25 MG PO Q6H PRN for NAUSEA/VOMITING, (Reported) Promethazine HCl 25 Mg Tablet, 25 MG PO Q6H PRN for NAUSEA/VOMITING-2ND LINE Prescribed by: ADA IRELAND on 10/09/181923 Promethazine HCl 50 Mg Supp.rect, 50 MG RC BID PRN Prescribed by: ALDO GUZMAN on 03/16/19 1331 Sucralfate 1 Gm Tablet, 1 GM PO QID Mixed with 10 mL water to make a slurry. Take 30 minutes before meals and bedtime. Prescribed by: ADA IRELAND on 10/09/181923 Tramadol HCl 50 Mg Tablet, 50 MG PO Q6H PRN for PAIN-MILD, (Reported) Trazodone HCl 150 Mg Tablet, 300 MG PO HS, (Reported) Venlafaxine HCl 150 Mg Tab.er.24, 150 MG PO DAILY, (Reported) Patient Home Medication List Home Medication List Reviewed: Yes Review of Systems Review of Systems Constitutional: No fever; malaise; No weakness Respiratory: No Symptoms Reported; Denies Cough, Denies Orthopnea Cardiovascular: Denies Chest Pain, Denies Edema, Denies Irregular Heart Rate Gastrointestinal: See HPI, Abdominal Pain, Nausea, Poor Appetite, Vomiting Past Yfjgczb-Bddaah-Nqrkjd Hx Past Med/Social Hx: Reviewed Nursing Past Med/Soc Hx Patient Social History Alcohol Use: Denies Use Recreational Drug Use: No Drug of Choice: THC Type Used: Cigarettes 2nd Hand Smoke Exposure: Yes Recent Foreign Travel: No Contact w/Someone Who Travel: No Recent Infectious Disease Expo: No Recent Hopitalizations: No Physical Abuse: No Sexual Abuse: No Mistreated: No Fear: No Immunizations Up To Date Date of Pneumonia Vaccine: May 19, 2015 Date of Influenza Vaccine: Mar 29, 2018 Seasonal Allergies Seasonal Allergies: Yes Past Medical History Surgeries: Yes (knee and ankle surgery) Gallbladder, Hysterectomy, Orthopedic Respiratory: Yes Asthma Currently Using CPAP: Yes Currently Using BIPAP: No Cardiac: No Neurological: No Female 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 Disorders: Denies 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[employer] 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 History: Hysterectomy Sexually Transmitted Disease: No HIV/AIDS: No Genitourinary: No Gastrointestinal: Yes (Gastroparesis; Hepatitis C; possible cyclic vomiting) Gastroesophageal Reflux, Ulcer Musculoskeletal: No Endocrine: Yes Diabetes, Insulin dep HEENT: Yes (wears glasses) Hearing Impairment: Denies Cancer: No Psychosocial: Yes (schizoeffective disorder) Anxiety, Depression Integumentary: No Blood Disorders: No Physical Exam Vital Signs Vital Signs - First Documented 03/16/19 13:10 Temp 34.8 Pulse 86 Resp 18 B/P (MAP) 192/88 (122) Pulse Ox 98 O2 Delivery Room Air Capillary Refill : Less Than 3 Seconds Height/Weight/BMI Height: 5'2.00" Weight: 184lbs. 7.0oz. 83.472491wt; 36.00 BMI Method:Actual General Appearance: WD/WN, no apparent distress Respiratory: chest non-tender, lungs clear Cardiovascular: regular rate, rhythm, no edema Gastrointestinal: non tender, soft; No guarding, No rebound Progress/Results/Core Measures Results/Orders My Orders Orders - ROVENSTINEALDO DO Ondansetron Injection (Zofran Injectio (03/16/19 13:30) Vital Signs/I&O 03/16/19 13:10 Temp 34.8 Pulse 86 Resp 18 B/P (MAP) 192/88 (122) Pulse Ox 98 O2 Delivery Room Air Blood Pressure Mean: 122 POS Departure Communication (Admissions) Patient left ER prior to getting IV Zofran......ER nurse found her outside ER Dept and removed her IV before she left the building. Patient very impatient and stated she was going to [facility]. Eloped prior to going over DC instructions, Rx for Phenergan sent electronically. Impression Primary Impression: Nausea and vomiting Qualified Codes: R11.2 - Nausea with vomiting, unspecified Additional Impression: Gastroparesis due to DM Disposition: 01 HOME, SELF-CARE Condition: Stable Departure-Patient Inst. Decision time for Depature: 13:52 Referrals: SELF,GLORY VEGA (PCP/Family) Primary Care Physician Patient Instructions: Nausea and Vomiting, Adult (DC), Gastroparesis (Delayed Gastric Emptying) (DC) Scripts Promethazine HCl (Phenergan) 50 Mg Supp.rect 50 MG RC BID PRN for Nausea, #10 SUPP.RECT Prov: ALDO GUZMAN DO 03/16/19 ALDO GUZMAN DO Mar 16, 2019 13:29 POS
[2019-03-16] MEDS ORDERED: ONDANSETRON 4 MG/2 ML (SDV) Z0FRAN IVP ONE (13:30)
[2019-03-16] MEDS ORDERED: PROM50SU10 RC (13:31)
[2019-03-16 13:57] VITALS: BP 192/88
--- NOTE | 2019-03-16 13:58 | NUR ---
THE PT ELOPED FROM THE ER WITHOUT TELLLING ANYONE SHE WAS LEAVING. THIS RN CAUGHT UP WITH HER UPFRONOT OF THE FACITLY BY THE [facility] TO REMOVE THE IV FROM THE CLINIC. THE PT STATED SHE WAS LEAVING AND GOING TO TRY TO SEE HER GI DR AT .
== END 2019-03-16 13:38 | disposition left against medical advice (07) ==
LOC: EDUNIT# 13:00 → ER FS 13:02
DX: E11.43 Type 2 diabetes mellitus with diabetic autonomic (poly)neuropathy (principal); K31.84 Gastroparesis; J45.909 Unspecified asthma, uncomplicated; K21.9 Gastro-esophageal reflux disease without esophagitis; B19.20 Unspecified viral hepatitis C without hepatic coma; F41.9 Anxiety disorder, unspecified; F32.9 Major depressive disorder, single episode, unspecified; F25.9 Schizoaffective disorder, unspecified; Z88.8 Allergy status to other drugs, medicaments and biological substances; Z91.040 Latex allergy status; Z88.5 Allergy status to narcotic agent; Z88.2 Allergy status to sulfonamides; Z88.1 Allergy status to other antibiotic agents; Z79.4 Long term (current) use of insulin; Z77.22 Contact with and (suspected) exposure to environmental tobacco smoke (acute) (chronic); Z90.710 Acquired absence of both cervix and uterus
CPT/HCPCS: 99282

== ENCOUNTER 2019-03-18 12:51 | Emergency (ER) | payer MEDICAID ==
[~2019-03-18] VITALS: Ht 157.4 cm; Wt 83.1 kg
--- NOTE | 2019-03-18 13:08 | ED GI ---
General Chief Complaint: Abdominal/GI Problems Stated Complaint: VOMITING Source of Information: Patient History of Present Illness Date Seen by Provider: Mar 18, 2019 Time Seen by Provider: 13:08 Initial Comments 43-year-old female presenting with a long-standing history of gastroparesis and nausea vomiting. She states that she has been feeling worse the last few days. She had gone to the clinic on Tuesday at [facility] and receive some fluids. Then she had come here to the emergency department on Tuesday but ended up leaving AMA. She reports that she then went to [facility] emergency department on Tuesday and was seen and evaluated. They had replaced her potassium because it was down to 3.2. She reports that she was feeling better after getting some fluids and treatment in the emergency department there so rather than be admitted she had gone home. But overnight and today she has continued to feel worse again. She reports that she had 2 episodes of passing out today. She has had sugars in the 200s. She has not been able to keep anything down. She has Zofran and Phenergan at home but it is not helping. She has a lot of pain with urination. She was having diarrhea but that has stopped and she has not had a bowel movement or been passing any gas in the last 2-3 days. She has had chills but is unsure if she has had a fever because she does not have a thermometer at home. She is asking to be transferred up to to be admitted and I advised her that I would need to get labs and evaluate her here and then I couldn't check in with to see if a transfer and admission was warranted or not. I will also request records from about her ER visit from 03/17 for a comparison on her tests and labs. Allergies and Home Medications Allergies Coded Allergies: adhesive tape (Verified Allergy, Unknown, 09/28/18) chlorhexidine (Verified Allergy, Unknown, 07/29/18) fluvoxamine (Verified Allergy, Unknown, 07/29/18) hydromorphone (Verified Allergy, Unknown, 07/29/18) latex (Verified Allergy, Unknown, 07/29/18) meperidine (Verified Allergy, Unknown, 07/29/18) morphine (Verified Allergy, Unknown, 05/19/18) sulfamethoxazole (Verified Allergy, Unknown, 05/19/18) trimethoprim (Verified Allergy, Unknown, 05/19/18) metoclopramide (Unverified Adverse Reaction, Intermediate, Tardive Dyskinesia, 02/02/19) promethazine (Unverified Adverse Reaction, Intermediate, Tardive Dyskinesia, 02/02/19) Home Medications Acetaminophen 500 Mg Tablet, 500 MG PO Q8H PRN for PAIN-BREAKTHROUGH, (Reported) Albuterol Sulfate 1 Puff Puff, 2 PUFF IH Q4H PRN for SHORTNESS OF BREATH, (Reported) 1 PUFF = 90 MCG Insulin Aspart 300 Units/3 Ml Solution, 7 UNITS SQ AC Prescribed by: OSMAR JEROME on 05/23/18 09 Insulin Detemir 100 Unit/1 Ml Insuln.pen, 20 UNIT SQ HS Prescribed by: OSMAR JEROME on 05/23/18 09 Ipratropium/Albuterol Sulfate 3 Ml Ampul.neb, 3 ML IH Q4H PRN for SHORTNESS OF BREATH, (Reported) Lisinopril 20 Mg Tablet, 20 MG PO DAILY Prescribed by: OSMAR JEROME on 05/23/18 09 Metformin HCl 750 Mg Tab.er.24h, 750 MG PO BID, (Reported) Metoclopramide HCl 10 Mg Tablet, 10 MG PO QID, (Reported) Omeprazole 20 Mg Capsule.dr, 20 MG PO HS, (Reported) Ondansetron 4 Mg Tab.rapdis, 4 MG PO Q4H PRN for NAUSEA/VOMITING-1ST LINE, (Reported) Promethazine HCl 25 Mg Tablet, 25 MG PO Q6H PRN for NAUSEA/VOMITING, (Reported) Promethazine HCl 25 Mg Tablet, 25 MG PO Q6H PRN for NAUSEA/VOMITING-2ND LINE Prescribed by: ADA IRELAND on 10/09/181923 Promethazine HCl 50 Mg Supp.rect, 50 MG RC BID PRN Prescribed by: ALDO GUZMAN on 03/16/19 133 Sucralfate 1 Gm Tablet, 1 GM PO QID Mixed with 10 mL water to make a slurry. Take 30 minutes before meals and bedtime. Prescribed by: ADA IRELAND on 10/09/181923 Tramadol HCl 50 Mg Tablet, 50 MG PO Q6H PRN for PAIN-MILD, (Reported) Trazodone HCl 150 Mg Tablet, 300 MG PO HS, (Reported) Venlafaxine HCl 150 Mg Tab.er.24, 150 MG PO DAILY, (Reported) Patient Home Medication List Home Medication List Reviewed: Yes Review of Systems Review of Systems Constitutional: chills, dizziness; No fever; malaise, weakness (generalized) EENTM: Throat Pain, Other (dry mouth) Respiratory: Cough (thinks she may have aspirated from vomiting so much) Cardiovascular: Chest Pain (hurting from coughing) Gastrointestinal: Abdominal Pain (diffuse), Diarrhea (a few days ago but no bowel movement for 2-3 days now), Nausea, Vomiting Genitourinary: Burning, Frequency, Pain, Urgency Musculoskeletal: muscle pain, muscle stiffness, muscle cramps Skin: No rash Psychiatric/Neurological: Anxiety Endocrine: Increased Thrist, Increased Urine Past Lmwcdlx-Sfecei-Jpbmkf Hx Past Med/Social Hx: Reviewed Nursing Past Med/Soc Hx Patient Social History Alcohol Use: Denies Use Recreational Drug Use: Yes (Denies current THC but hx of) Drug of Choice: THC, using CBD oil now Type Used: Cigarettes 2nd Hand Smoke Exposure: Yes Recent Hopitalizations: No Physical Abuse: No Sexual Abuse: No Mistreated: No Fear: No Immunizations Up To Date Date of Pneumonia Vaccine: May 19, 2015 Date of Influenza Vaccine: Mar 29, 2018 Seasonal Allergies Seasonal Allergies: Yes Past Medical History Surgeries: Yes (knee and ankle surgery) Gallbladder, Hysterectomy, Orthopedic Respiratory: Yes Asthma Currently Using CPAP: Yes Currently Using BIPAP: No Cardiac: No Neurological: No Female 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 Disorders: Denies 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 Sexually Transmitted Disease: No HIV/AIDS: No Genitourinary: No Gastrointestinal: Yes (Gastroparesis; Hepatitis C; possible cyclic vomiting) Gastroesophageal Reflux, Ulcer Musculoskeletal: No Endocrine: Yes Diabetes, Insulin dep HEENT: Yes (wears glasses) Hearing Impairment: Denies Cancer: No Psychosocial: Yes (schizoeffective disorder) Anxiety, Depression Integumentary: No Blood Disorders: No Physical Exam Vital Signs Vital Signs - First Documented 03/18/19 12:55 Temp 36.9 Pulse 101 Resp 34 B/P (MAP) 124/90 (101) Pulse Ox 97 O2 Delivery Room Air Capillary Refill : Height/Weight/BMI Height: 5'2.00" Weight: 184lbs. 7.0oz. 83.406934cu; 36.00 BMI Method:Actual General Appearance: mild distress, other (appears chronically ill and older than stated age) HEENT: PERRL/EOMI, pharyngeal erythema; No tonsillar exudate; other (slightly dry mucous membranes) Neck: non-tender, supple Respiratory: no respiratory distress, no accessory muscle use, decreased breath sounds, rhonchi, wheezing (left side) Cardiovascular: normal peripheral pulses, regular rate, rhythm, systolic murmur (2/6) Gastrointestinal: soft, no pulsatile mass, abnormal bowel sounds (hypoactive), guarding; No rebound; tenderness (diffusely tender) Rectal: deferred Extremities: non-tender, normal capillary refill Neurologic/Psychiatric: alert, oriented x 3, depressed affect Skin: normal color, warm/dry Progress/Results/Core Measures Results/Orders Lab Results Laboratory Tests Test 03/18/19 13:25 03/18/19 13:40 Range/Units Urine Color YELLOW Urine Clarity CLEAR Urine pH 7.0 5-9 Urine Specific Hustle <=1.005 1.016-1.022 Urine Protein NEGATIVE NEGATIVE Urine Glucose (UA) NEGATIVE NEGATIVE Urine Ketones 1+ H NEGATIVE Urine Nitrite NEGATIVE NEGATIVE Urine Bilirubin NEGATIVE NEGATIVE Urine Urobilinogen 0.2 < = 1.0 MG/DL Urine Leukocyte Esterase NEGATIVE NEGATIVE Urine RBC (Auto) NEGATIVE NEGATIVE Urine RBC NONE /HPF Urine WBC 0-2 /HPF Urine Squamous Epithelial Cells 0-2 /HPF Urine Crystals NONE /LPF Urine Bacteria TRACE /HPF Urine Casts NONE /LPF Urine Mucus NONE /LPF Urine Culture Indicated NO White Blood Count 14.5 H 4.3-11.0 10^3/uL Red Blood Count 4.76 4.35-5.85 10^6/uL Hemoglobin 15.2 11.5-16.0 G/DL Hematocrit 42 35-52 % Mean Corpuscular Volume 87 80-99 FL Mean Corpuscular Hemoglobin 32 25-34 PG Mean Corpuscular Hemoglobin Concent 37 H 32-36 G/DL Red Cell Distribution Width 12.2 10.0-14.5 % Platelet Count 270 130-400 10^3/uL Mean Platelet Volume 10.2 7.4-10.4 FL Neutrophils (%) (Auto) 76 H 42-75 % Lymphocytes (%) (Auto) 16 12-44 % Monocytes (%) (Auto) 8 0-12 % Eosinophils (%) (Auto) 0 0-10 % Basophils (%) (Auto) 0 0-10 % Neutrophils # (Auto) 11.0 H 1.8-7.8 X 10^3 Lymphocytes # (Auto) 2.4 1.0-4.0 X 10^3 Monocytes # (Auto) 1.1 H 0.0-1.0 X 10^3 Eosinophils # (Auto) 0.0 0.0-0.3 10^3/uL Basophils # (Auto) 0.0 0.0-0.1 10^3/uL Neutrophils % (Manual) 76 % Lymphocytes % (Manual) 15 % Monocytes % (Manual) 8 % Eosinophils % (Manual) 0 % Basophils % (Manual) 1 % Band Neutrophils 0 % Sodium Level 131 L 135-145 MMOL/L Potassium Level 3.0 L 3.6-5.0 MMOL/L Chloride Level 94 L 98-107 MMOL/L Carbon Dioxide Level 22 21-32 MMOL/L Anion Gap 15 H 5-14 MMOL/L Blood Urea Nitrogen 9 7-18 MG/DL Creatinine 0.74 0.60-1.30 MG/DL Estimat Glomerular Filtration Rate > 60 BUN/Creatinine Ratio 12 Glucose Level 209 H 70-105 MG/DL Calcium Level 10.4 H 8.5-10.1 MG/DL Corrected Calcium 10.1 8.5-10.1 MG/DL Magnesium Level 1.4 L 1.6-2.4 MG/DL Total Bilirubin 1.1 H 0.1-1.0 MG/DL Aspartate Amino Transf (AST/SGOT) 28 5-34 U/L Alanine Aminotransferase (ALT/SGPT) 15 0-55 U/L Alkaline Phosphatase 58 40-136 U/L Total Protein 7.8 6.4-8.2 GM/DL Albumin 4.4 3.2-4.5 GM/DL Lipase 21 8-78 U/L My Orders Orders - MYRIAM REESE MD Comprehensive Metabolic Panel (03/18/19 13:24) Lipase (03/18/19 13:24) Ua Culture If Indicated (03/18/19 13:24) Ed Iv/Invasive Line Start (03/18/19 13:24) Acute Abd Series (03/18/19 13:24) Cbc With Automated Diff (03/18/19 13:24) Magnesium (03/18/19 13:24) Prochlorperazine Injection (Compazine In (03/18/19 13:24) Ns Iv 1000 Ml (Sodium Chloride 0.9%) (03/18/19 13:24) Pantoprazole Injection (Protonix Injecti (03/18/19 13:27) Monitor-Rhythm Ecg Trace Only (03/18/19 13:27) Ekg Tracing (03/18/19 13:27) Manual Differential (03/18/19 13:40) Potassium Cl 10meq/50ml Ivpb (Kcl 10 Meq (03/18/19 14:17) Lactated Ringers (Lr 1000 Ml Iv Solution (03/18/19 15:15) Promethazine Injection (Phenergan Injec (03/18/19 15:41) Lorazepam Injection (Ativan Injection) (03/18/19 15:41) Famotidine Injection (Pepcid Injection) (03/18/19 15:41) Fentanyl Injection (Sublimaze Injection (03/18/19 15:41) Potassium Cl 10meq/50ml Ivpb (Kcl 10 Meq (03/18/19 16:15) Lactated Ringers (Lr 1000 Ml Iv Solution (03/18/19 16:15) Magnesium 1 Gm/100 Ml Ivpb (Magnesium Matias (03/18/19 16:22) Medications Given in ED Current Medications Medications Dose Ordered Sig/Ashley Route Start Time Stop Time Status Last Admin Dose Admin Potassium Chloride 50 ml @ 50 mls/hr ONCE ONCE IV 03/18/19 16:15 03/18/19 17:14 DC 03/18/19 16:20 50 MLS/HR Vital Signs/I&O 03/18/19 12:55 Temp 36.9 Pulse 101 Resp 34 B/P (MAP) 124/90 (101) Pulse Ox 97 O2 Delivery Room Air Progress Progress Note #1: Progress Note [facility] since she reports tingling in the emergency department yesterday. Obtain labs and acute abdomen series to evaluate her chest and abdomen. A urinalysis to evaluate for hydration and look for infection. Give IV fluids for hydration. Compazine she states that that works best for her nausea most recently. Protonix to try and help with her abdominal pain and burning epigastric pain. Progress Note #2: Progress Note Labs do demonstrate elevated white blood cell count but comparing them to records from [facility] from yesterday and is improved. Her electrolytes to showed that her potassium is down to 3.0 which is worse when she had yesterday. Her liver enzymes and lipase are normal. Her urinalysis does not show signs of infection. She does have 1+ ketones. She has not had any further vomiting here but states that she is still having a lot of epigastric pain and reflux symptoms. Her x-rays did not demonstrate any obstruction or perforation. There is also no signs of pneumonia or aspiration on her chest part of her acute abdomen series. Will contact [facility] about transfer as the patient prefers to be admitted their since she is followed there for her gastroparesis. She feels that she cannot go home and is not able to tolerate oral intake. Will supplement her potassium with IV 10 mEq potassium in addition to continuing fluids. Progress Note #3: Progress Note On recheck of the patient I advised her that I am still waiting to hear back from but she states that she was still having pain and nausea so will add on Pepcid and additional 10 mEq IV potassium, IV magnesium, LR for hydration, Ativan as she was asking for something for anxiety. Will try dose of fentanyl to try and help with her epigastric pain as well. Progress Note #4: Progress Note patient doing some better on recheck. She still has had no emesis here in ED. Room assignment and attending received from . Pt being switched over to maintenance fluids for hydration. BP has improved as she has been treated here i n the ED Initial ECG Impression Date: Mar 18, 2019 Initial ECG Impression Time: 13:42 Initial ECG Rate: 86 Initial ECG Rhythm: Normal Sinus Initial ECG Comparisson: Unchanged Comment Normal sinus rhythm with heart rate of 86 bpm. NE interval of 150 ms. QT interval 403 ms with a QT corrected interval 482 ms. There is no acute ST elevation. She does have some artifact on the tracing. This appears similar to prior tracings in the system. Diagnostic Imaging Diagonstic Imaging: Xray Plain Films/CT/US/NM/MRI: abdomen Comments NAME: MILLER IRIZARRY [facility] REC#: [id number] PT STATUS: REG ER : 1975 PHYSICIAN: MYRIAM REESE MD ADMIT DATE: 03/18/19/ER FS Draft POSDate of Exam:03/18/19 ACUTE ABD SERIES INDICATION: Nausea and vomiting. FINDINGS: The lungs appear clear without infiltrate or evidence of an effusion. There is no pneumothorax. Heart size and mediastinal contours appropriate. Pulmonary vascularity appears normal. The bowel gas pattern appears nonobstructive. There is gas within loops of small bowel as well as within the colon. There is moderate stool within the colon. There are surgical clips in the right upper quadrant. There are no unexpected abdominal calcifications. IMPRESSION: 1. No radiographic evidence of an acute cardiopulmonary processes. 2. Nonobstructive bowel gas pattern without evidence of free air. Dictated on workstation # [id number] Dict: 03/18/19 1339 Trans: 03/18/19 1348 TS [id number] Interpreted by: JORDAN ODELL MD Electronically signed by: Departure Impression Primary Impression: Hypokalemia due to excessive gastrointestinal loss of potassium Additional Impressions: Diabetic gastroparesis Epigastric abdominal pain Vasovagal syncope Hypomagnesemia Disposition: XF T-[facility] HOS[facility] Condition: Stable Transfer Transfer Reason: Patient preference Time Spoke to Accepting Phy: 16:10 Transfer Progress Notes 1431 I spoke with SHASTA Nicole at the transfer center for [facility]. The patient was requesting to go to [facility] since that is where she is followed for her gastroparesis. After giving on the information to SHASTA Nicole, she said that she would contact the attending and get back with me. 1610 SHASTA Nicole from the [facility] transfer Center called back stating that Dr. Celia Nair was the accepting physician for the transfer. She wi ll call back as soon as a room assignment has been made and get report for the patient. Transfer Facility: [facility] Method of Transfer: EMS Departure-Patient Inst. Referrals: GLORY LINARES MD (PCP/Family) Primary Care Physician MYRIAM REESE MD Mar 18, 2019 13:08 POS
[2019-03-18] MEDS ORDERED: NS IV 1000 ML 1,000 ML IV STA (13:24)
[2019-03-18] MEDS ORDERED: PROCHLORPERAZINE 10 MG/2ML INJ (COMPAZINE) IV STA (13:24)
[2019-03-18] MEDS ORDERED: PANTOPRAZOLE 40 MG (PROTONIX) VIAL IV STA (13:27)
--- NOTE | 2019-03-18 13:29 | NUR ---
Record release sent to [facility] HIM dept for record release of ER visit the day before.
[2019-03-18 13:39] LABS: BACTERIA,URINE TRACE /HPF; BILIRUBIN,URINE NEGATIVE (NEGATIVE); CLARITY,URINE CLEAR; COLOR,URINE YELLOW; GLUCOSE, URINE (UA) NEGATIVE (NEGATIVE); KETONES,URINE 1+ (NEGATIVE); LEUKOCYTE ESTERASE ,URINE NEGATIVE (NEGATIVE); NITRITE,URINE NEGATIVE (NEGATIVE); PROTEIN,URINE NEGATIVE (NEGATIVE); SQUAMOUS EPITHELIAL CELL,UR 0-2 /HPF; WBC,URINE 0-2 /HPF
--- NOTE | 2019-03-18 13:49 | Diagnostic Imaging Report ---
INDICATION: Nausea and vomiting. FINDINGS: The lungs appear clear without infiltrate or evidence of an effusion. There is no pneumothorax. Heart size and mediastinal contours appropriate. Pulmonary vascularity appears normal. The bowel gas pattern appears nonobstructive. There is gas within loops of small bowel as well as within the colon. There is moderate stool within the colon. There are surgical clips in the right upper quadrant. There are no unexpected abdominal calcifications. IMPRESSION: 1. No radiographic evidence of an acute cardiopulmonary processes. 2. Nonobstructive bowel gas pattern without evidence of free air. Dictated by: Dictated on workstation # [id number]
[2019-03-18 13:54] LABS: HEMATOCRIT 42 % (35-52); HEMOGLOBIN 15.2 G/DL (11.5-16.0); MEAN CORPUSCULAR HEMOGLOBIN 32 PG (25-34); MEAN CORPUSCULAR HGB CONC 37 G/DL (32-36); MEAN CORPUSCULAR VOLUME 87 FL (80-99); MEAN PLATELET VOLUME 10.2 FL (7.4-10.4); PLATELET COUNT 270 10^3/uL (130-400); RED CELL DISTRIBUTION WIDTH 12.2 % (10.0-14.5); WHITE BLOOD COUNT 14.5 10^3/uL (4.3-11.0)
[2019-03-18 13:55] LABS: BASOPHILS % (AUTO) 0 % (0-10); EOSINOPHILS % (AUTO) 0 % (0-10); LYMPHOCYTES # (AUTO) 2.4 X 10^3 (1.0-4.0); LYMPHOCYTES % (AUTO) 16 % (12-44); MONOCYTES # (AUTO) 1.1 X 10^3 (0.0-1.0); MONOCYTES % (AUTO) 8 % (0-12); NEUTROPHILS % (AUTO) 76 % (42-75)
[2019-03-18 14:11] LABS: BAND NEUTROPHILS 0 %; BASOPHILS % (MANUAL) 1 %; EOSINOPHILS % (MANUAL) 0 %; LYMPHOCYTES % (MANUAL) 15 %; MONOCYTES % (MANUAL) 8 %; NEUTROPHILS % (MANUAL) 76 %
[2019-03-18 14:12] LABS: CARBON DIOXIDE 22 MMOL/L (21-32); CHLORIDE 94 MMOL/L (98-107); SODIUM 131 MMOL/L (135-145)
[2019-03-18 14:13] LABS: ALANINE AMINOTRANSFERASE 15 U/L (0-55); ALBUMIN 4.4 GM/DL (3.2-4.5); ALKALINE PHOSPHATASE 58 U/L (40-136); BILIRUBIN,TOTAL 1.1 MG/DL (0.1-1.0); BUN/CREATININE RATIO 12; CALCIUM 10.4 MG/DL (8.5-10.1); CREATININE SERUM 0.74 MG/DL (0.60-1.30); GFR ESTIMATED > 60; GLUCOSE 209 MG/DL (70-105); MAGNESIUM 1.4 MG/DL (1.6-2.4)
[2019-03-18 14:14] LABS: LIPASE 21 U/L (8-78); TOTAL PROTEIN 7.8 GM/DL (6.4-8.2)
[2019-03-18] MEDS ORDERED: CANA100T (14:16)
[2019-03-18] MEDS ORDERED: POTASSIUM CL 10MEQ/50ML IVPB 50 ML IV STA (14:17)
[2019-03-18] MEDS ORDERED: LACTATED RINGERS 1,000 ML IV SCH ×2 (15:15→16:15)
[2019-03-18] MEDS ORDERED: fentaNYL INJECTION 100 MCG/2 ML AMP IVP STA (15:41)
[2019-03-18] MEDS ORDERED: PROMETHAZINE INJ 25 MG/ML (PHENERGAN) AMP IVP STA (15:41)
[2019-03-18] MEDS ORDERED: FAMOTIDINE 20MG/2ML IV (PEPCID) IVP STA (15:41)
[2019-03-18] MEDS ORDERED: LORazepam INJ 2 MG/ML (ATIVAN) VIAL IVP STA (15:41)
[2019-03-18] MEDS ORDERED: POTASSIUM CL 10MEQ/50ML IVPB 50 ML IV ONE (16:15)
[2019-03-18] MEDS ORDERED: MAGNESIUM 1 GM/100 ML IVPB 100 ML IV STA (16:22)
[2019-03-18 17:10] VITALS: BP 165/104
== END 2019-03-18 17:10 | disposition short-term general hospital (02) ==
LOC: EDUNIT# 12:51 → ER FS 12:52
DX: E87.6 Hypokalemia (principal); E11.43 Type 2 diabetes mellitus with diabetic autonomic (poly)neuropathy; K31.84 Gastroparesis; R10.13 Epigastric pain; R55 Syncope and collapse; E83.42 Hypomagnesemia; J45.909 Unspecified asthma, uncomplicated; K21.9 Gastro-esophageal reflux disease without esophagitis; F41.9 Anxiety disorder, unspecified; F32.9 Major depressive disorder, single episode, unspecified; F25.9 Schizoaffective disorder, unspecified; Z79.4 Long term (current) use of insulin; Z77.22 Contact with and (suspected) exposure to environmental tobacco smoke (acute) (chronic); Z90.710 Acquired absence of both cervix and uterus; Z88.8 Allergy status to other drugs, medicaments and biological substances; Z91.040 Latex allergy status; Z88.2 Allergy status to sulfonamides; Z88.5 Allergy status to narcotic agent
CPT/HCPCS: 36415; 74022; 80053; 81000; 83690; 83735; 85007; 85027; 93005; 93041; 96361; 96374; 96375

== ENCOUNTER 2019-04-21 12:29 | Emergency (ER) | payer MEDICAID ==
[~2019-04-21] VITALS: Ht 157 cm; Wt 78.0 kg
[~2019-04-21 12:29] MED LIST changes: +CANA100T
--- NOTE | 2019-04-21 12:50 | ED Lower Extremity ---
General Chief Complaint: General Problems/Pain Stated Complaint: HIP PAIN Source: patient Exam Limitations: no limitations History of Present Illness Date Seen by Provider: Apr 21, 2019 Time Seen by Provider: 12:46 Initial Comments This 43-year-old white female presents with chronic bilateral hip pain left greater than right for more than the last year. The patient denies trauma to the area. She has been told by her chiropractor that her hips are "out" and n eed to be adjusted. Unfortunately the patient does not have insurance which will cover chiropractic manipulation. Patient denies history of other joint pain. She has no history of documented arthritis. The patient states that the pain is sharp in nature and made worse with weight bearing. Allergies and Home Medications Allergies Coded Allergies: adhesive tape (Verified Allergy, Unknown, 09/28/18) chlorhexidine (Verified Allergy, Unknown, 07/29/18) fluvoxamine (Verified Allergy, Unknown, 07/29/18) hydromorphone (Verified Allergy, Unknown, 07/29/18) latex (Verified Allergy, Unknown, 07/29/18) meperidine (Verified Allergy, Unknown, 07/29/18) morphine (Verified Allergy, Unknown, 05/19/18) sulfamethoxazole (Verified Allergy, Unknown, 05/19/18) trimethoprim (Verified Allergy, Unknown, 05/19/18) metoclopramide (Unverified Adverse Reaction, Intermediate, Tardive Dyskinesia, 02/02/19) promethazine (Unverified Adverse Reaction, Intermediate, Tardive Dyskinesia, 02/02/19) Home Medications Acetaminophen 500 Mg Tablet, 500 MG PO Q8H PRN for PAIN-BREAKTHROUGH, (Reported) Albuterol Sulfate 1 Puff Puff, 2 PUFF IH Q4H PRN for SHORTNESS OF BREATH, (Reported) 1 PUFF = 90 MCG Insulin Aspart 300 Units/3 Ml Solution, 7 UNITS SQ AC Prescribed by: OSMAR JEROME on 05/23/18 0955 Insulin Detemir 100 Unit/1 Ml Insuln.pen, 20 UNIT SQ HS Prescribed by: OSMAR JEROME on 05/23/18 0955 Ipratropium/Albuterol Sulfate 3 Ml Ampul.neb, 3 ML IH Q4H PRN for SHORTNESS OF BREATH, (Reported) Lisinopril 20 Mg Tablet, 20 MG PO DAILY Prescribed by: OSMAR JEROME on 05/23/18 0955 Metformin HCl 750 Mg Tab.er.24h, 750 MG PO BID, (Reported) Metoclopramide HCl 10 Mg Tablet, 10 MG PO QID, (Reported) Omeprazole 20 Mg Capsule.dr, 20 MG PO HS, (Reported) Ondansetron 4 Mg Tab.rapdis, 4 MG PO Q4H PRN for NAUSEA/VOMITING-1ST LINE, (Reported) Promethazine HCl 25 Mg Tablet, 25 MG PO Q6H PRN for NAUSEA/VOMITING, (Reported) Promethazine HCl 25 Mg Tablet, 25 MG PO Q6H PRN for NAUSEA/VOMITING-2ND LINE Prescribed by: ADA IRELAND on 10/09/181923 Promethazine HCl 50 Mg Supp.rect, 50 MG RC BID PRN Prescribed by: ALDO GUZMAN on 03/16/19 1331 Sucralfate 1 Gm Tablet, 1 GM PO QID Mixed with 10 mL water to make a slurry. Take 30 minutes before meals and bedtime. Prescribed by: ADA IRELAND on 10/09/181923 Tramadol HCl 50 Mg Tablet, 50 MG PO Q6H PRN for PAIN-MILD, (Reported) Trazodone HCl 150 Mg Tablet, 300 MG PO HS, (Reported) Venlafaxine HCl 150 Mg Tab.er.24, 150 MG PO DAILY, (Reported) Patient Home Medication List Home Medication List Reviewed: Yes Review of Systems Constitutional: No chills EENTM: no symptoms reported Respiratory: cough Cardiovascular: No chest pain Gastrointestinal: No abdominal pain Musculoskeletal: see HPI, joint pain (bilateral hip pain left greater than right) Skin: no symptoms reported Psychiatric/Neurological: No Symptoms Reported Past Psthwby-Glramb-Ofdfuw Hx Past Med/Social Hx: Reviewed Nursing Past Med/Soc Hx Patient Social History Drug of Choice: THC, using CBD oil now Type Used: Cigarettes 2nd Hand Smoke Exposure: Yes Recent Hopitalizations: No Immunizations Up To Date Date of Pneumonia Vaccine: May 19, 2015 Date of Influenza Vaccine: Mar 29, 2018 Seasonal Allergies Seasonal Allergies: Yes Past Medical History Surgeries: Yes (knee and ankle surgery) Gallbladder, Hysterectomy, Orthopedic Respiratory: Yes Asthma Currently Using CPAP: Yes Currently Using BIPAP: No Cardiac: No Neurological: No Female 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 Disorders: Denies 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 Sexually Transmitted Disease: No HIV/AIDS: No Genitourinary: No Gastrointestinal: Yes (Gastroparesis; Hepatitis C; possible cyclic vomiting) Gastroesophageal Reflux, Ulcer Musculoskeletal: No Endocrine: Yes Diabetes, Insulin dep HEENT: Yes (wears glasses) Hearing Impairment: Denies Cancer: No Psychosocial: Yes (schizoeffective disorder) Anxiety, Depression Integumentary: No Blood Disorders: No Physical Exam Vital Signs Vital Signs - First Documented 04/21/19 12:45 Temp 36.1 Pulse 88 Resp 16 B/P (MAP) 120/68 (85) Pulse Ox 97 Capillary Refill : Height, Weight, BMI Height: 5'2.00" Weight: 184lbs. 7.0oz. 83.508921rk; 33.00 BMI Method:Actual General Appearance: WD/WN, mild distress HEENT: normal ENT inspection Neck: full range of motion, supple Cardiovascular: regular rate, rhythm, no murmur Respiratory: lungs clear, normal breath sounds Gastrointestinal: normal bowel sounds, non tender, soft Back: normal inspection, no CVA tenderness, no vertebral tenderness Hips: bilateral hip bone tenderness, bilateral hip pain, bilateral hip soft tissue tenderness Neurologic/Tendon: normal sensation, normal motor functions, normal tendon func tions, responds to pain Neurologic/Psychiatric: no motor/sensory deficits, alert, normal mood/affect, oriented x 3 Skin: normal color, warm/dry Progress/Results/Core Measures Results/Orders Lab Results Laboratory Tests Test 04/21/19 12:58 04/21/19 13:05 Range/Units White Blood Count 8.4 4.3-11.0 10^3/uL Red Blood Count 4.36 4.35-5.85 10^6/uL Hemoglobin 14.1 11.5-16.0 G/DL Hematocrit 41 35-52 % Mean Corpuscular Volume 93 80-99 FL Mean Corpuscular Hemoglobin 32 25-34 PG Mean Corpuscular Hemoglobin Concent 35 32-36 G/DL Red Cell Distribution Width 12.6 10.0-14.5 % Platelet Count 214 130-400 10^3/uL Mean Platelet Volume 10.6 H 7.4-10.4 FL Neutrophils (%) (Auto) 75 42-75 % Lymphocytes (%) (Auto) 18 12-44 % Monocytes (%) (Auto) 6 0-12 % Eosinophils (%) (Auto) 1 0-10 % Basophils (%) (Auto) 0 0-10 % Neutrophils # (Auto) 6.2 1.8-7.8 X 10^3 Lymphocytes # (Auto) 1.5 1.0-4.0 X 10^3 Monocytes # (Auto) 0.5 0.0-1.0 X 10^3 Eosinophils # (Auto) 0.1 0.0-0.3 10^3/uL Basophils # (Auto) 0.0 0.0-0.1 10^3/uL Erythrocyte Sedimentation Rate 15 0-20 MM/HR Sodium Level 140 135-145 MMOL/L Potassium Level 4.2 3.6-5.0 MMOL/L Chloride Level 104 98-107 MMOL/L Carbon Dioxide Level 22 21-32 MMOL/L Anion Gap 14 5-14 MMOL/L Blood Urea Nitrogen 11 7-18 MG/DL Creatinine 0.71 0.60-1.30 MG/DL Estimat Glomerular Filtration Rate > 60 BUN/Creatinine Ratio 15 Glucose Level 234 H 70-105 MG/DL Calcium Level 9.1 8.5-10.1 MG/DL Corrected Calcium 9.3 8.5-10.1 MG/DL Total Bilirubin 0.2 0.1-1.0 MG/DL Aspartate Amino Transf (AST/SGOT) 42 H 5-34 U/L Alanine Aminotransferase (ALT/SGPT) 34 0-55 U/L Alkaline Phosphatase 87 40-136 U/L Total Protein 6.8 6.4-8.2 GM/DL Albumin 3.7 3.2-4.5 GM/DL Urine Color YELLOW Urine Clarity CLEAR Urine pH 6.5 5-9 Urine Specific [place] 1.015 L 1.016-1.022 Urine Protein NEGATIVE NEGATIVE Urine Glucose (UA) 3+ H NEGATIVE Urine Ketones NEGATIVE NEGATIVE Urine Nitrite NEGATIVE NEGATIVE Urine Bilirubin NEGATIVE NEGATIVE Urine Urobilinogen 0.2 < = 1.0 MG/DL Urine Leukocyte Esterase NEGATIVE NEGATIVE Urine RBC (Auto) NEGATIVE NEGATIVE Urine RBC RARE /HPF Urine WBC RARE /HPF Urine Squamous Epithelial Cells 10-25 H /HPF Urine Crystals NONE /LPF Urine Bacteria NEGATIVE /HPF Urine Casts NONE /LPF Urine Mucus NEGATIVE /LPF Urine Culture Indicated NO Urine Test NEGATIVE NEGATIVE My Orders Orders - REGINA ROBLES MD Erythrocyte Sedimentation Rate (04/21/19 12:50) Cbc With Automated Diff (04/21/19 12:50) Comprehensive Metabolic Panel (04/21/19 12:50) Pelvis/Kai Hips 3-4 View (04/21/19 12:50) Ua Culture If Indicated (04/21/19 12:50) Hcg,Qualitative Urine (04/21/19 12:50) Ketorolac Injection (Toradol Injection) (04/21/19 13:45) Vital Signs/I&O 04/21/19 12:45 Temp 36.1 Pulse 88 Resp 16 B/P (MAP) 120/68 (85) Pulse Ox 97 Progress Progress Note : Time: 13:41 Progress Note The patient's radiographic and laboratory evaluation was unremarkable. After discussion with the patient 30 mg of Toradol IV was given. The patient had used ketorolac with good results in the past. I asked the patient continue with the Toradol orally until she can follow-up with her doctor on Tuesday. I asked her to call or return if she has any further problems or questions. Departure Impression Primary Impression: Hip pain Qualified Codes: M25.551 - Pain in right hip; M25.552 - Pain in left hip Disposition: 01 HOME, SELF-CARE Condition: Improved Departure-Patient Inst. Decision time for Depature: 13:43 Referrals: GLORY LINARES MD (PCP/Family) Primary Care Physician Patient Instructions: Hip Pain (DC) Add. Discharge Instructions: Toradol as prescribed. Follow-up with Dr. linares on Tuesday. Return of any problems or questions. All discharge instructions reviewed with patient and/or family. Voiced understanding. Scripts Ketorolac Tromethamine (Ketorolac Tromethamine) 10 Mg Tablet 10 MG PO Q6H PRN for PAIN-MODERATE (5-7), #20 TAB Prov: REGINA ROBLES MD 04/21/19 REGINA ROBLES MD Apr 21, 2019 12:50
--- NOTE | 2019-04-21 13:28 | Diagnostic Imaging Report ---
INDICATION: Bilateral hip pain. TIME OF EXAM: 12:47 PM FINDINGS: AP view of the pelvis and multiple views of the bilateral hips were obtained. Femoral acetabular alignment is normal bilaterally. Hip joint spaces are well-maintained. The femoral heads and necks are intact. No fractures are identified. Rami are intact. SI joints and symphysis are not widened. IMPRESSION: No acute abnormality is detected. Dictated by: Dictated on workstation # [id number]
[2019-04-21 13:31] LABS: BILIRUBIN,TOTAL 0.2 MG/DL (0.1-1.0); BUN/CREATININE RATIO 15; CALCIUM 9.1 MG/DL (8.5-10.1); CARBON DIOXIDE 22 MMOL/L (21-32); CHLORIDE 104 MMOL/L (98-107); CREATININE SERUM 0.71 MG/DL (0.60-1.30); GFR ESTIMATED > 60; GLUCOSE 234 MG/DL (70-105); POTASSIUM 4.2 MMOL/L (3.6-5.0); SODIUM 140 MMOL/L (135-145)
[2019-04-21 13:32] LABS: ALANINE AMINOTRANSFERASE 34 U/L (0-55); ALBUMIN 3.7 GM/DL (3.2-4.5); ALKALINE PHOSPHATASE 87 U/L (40-136); HEMATOCRIT 41 % (35-52); HEMOGLOBIN 14.1 G/DL (11.5-16.0); MEAN CORPUSCULAR HEMOGLOBIN 32 PG (25-34); MEAN CORPUSCULAR HGB CONC 35 G/DL (32-36); MEAN CORPUSCULAR VOLUME 93 FL (80-99); MEAN PLATELET VOLUME 10.6 FL (7.4-10.4); PLATELET COUNT 214 10^3/uL (130-400); RED CELL DISTRIBUTION WIDTH 12.6 % (10.0-14.5); TOTAL PROTEIN 6.8 GM/DL (6.4-8.2); WHITE BLOOD COUNT 8.4 10^3/uL (4.3-11.0)
[2019-04-21 13:33] LABS: CLARITY,URINE CLEAR; COLOR,URINE YELLOW; PH,URINE 6.5 (5-9)
[2019-04-21 13:33] LABS: BASOPHILS % (AUTO) 0 % (0-10); EOSINOPHILS # (AUTO) 0.1 10^3/uL (0.0-0.3); EOSINOPHILS % (AUTO) 1 % (0-10); LYMPHOCYTES # (AUTO) 1.5 X 10^3 (1.0-4.0); LYMPHOCYTES % (AUTO) 18 % (12-44); MONOCYTES # (AUTO) 0.5 X 10^3 (0.0-1.0); MONOCYTES % (AUTO) 6 % (0-12); NEUTROPHILS # (AUTO) 6.2 X 10^3 (1.8-7.8); NEUTROPHILS % (AUTO) 75 % (42-75)
[2019-04-21 13:34] LABS: BACTERIA,URINE NEGATIVE /HPF; BILIRUBIN,URINE NEGATIVE (NEGATIVE); GLUCOSE, URINE (UA) 3+ (NEGATIVE); KETONES,URINE NEGATIVE (NEGATIVE); LEUKOCYTE ESTERASE ,URINE NEGATIVE (NEGATIVE); NITRITE,URINE NEGATIVE (NEGATIVE); PROTEIN,URINE NEGATIVE (NEGATIVE); RBC,URINE RARE /HPF; WBC,URINE RARE /HPF
[2019-04-21 13:35] LABS: ERYTHROCYTE SEDIMENTATION RATE 15 MM/HR (0-20)
[2019-04-21] MEDS ORDERED: KETO10TA PO (13:44)
[2019-04-21] MEDS ORDERED: KETOROLAC 30 MG/ML VIAL IVP ONE (13:45)
[2019-04-21 14:00] VITALS: BP 106/61
== END 2019-04-21 14:19 | disposition home or self-care (01) ==
LOC: EDUNIT# 12:29 → ER FS 12:31
DX: M25.551 Pain in right hip (principal); M25.552 Pain in left hip; J45.909 Unspecified asthma, uncomplicated; E11.9 Type 2 diabetes mellitus without complications; F41.9 Anxiety disorder, unspecified; F32.9 Major depressive disorder, single episode, unspecified; B19.20 Unspecified viral hepatitis C without hepatic coma; K21.9 Gastro-esophageal reflux disease without esophagitis; Z88.1 Allergy status to other antibiotic agents; Z88.2 Allergy status to sulfonamides; Z88.5 Allergy status to narcotic agent; Z88.8 Allergy status to other drugs, medicaments and biological substances; Z79.4 Long term (current) use of insulin; Z77.22 Contact with and (suspected) exposure to environmental tobacco smoke (acute) (chronic); Z90.710 Acquired absence of both cervix and uterus
CPT/HCPCS: 36415; 73522; 80053; 81000; 84703; 85025; 85652; 96374

== ENCOUNTER → 2019-06-04 | Outpatient (CLI) | payer MEDICAID ==
[~2019-06-04] MED LIST changes: +KETO10TA PO; -METF750T2 PO; +METF750T45 PO; +OMEP-280 PO; -OMEP20CA13 PO; -TRAM50TA2 PO; +TRM50T PO
--- NOTE | 2019-06-04 14:24 | Diagnostic Imaging Report ---
INDICATION: Constipation. FINDINGS: The lung bases are clear. Bowel gas pattern is nonspecific. There is no free air. There are surgical clips in right upper quadrant. IMPRESSION: Nonspecific bowel gas pattern. Dictated by: Dictated on workstation # [id number]
== END ==
LOC: RAD FS 13:26
PROVIDERS: ATTEND Family Medicine
DX: K59.01 Slow transit constipation (principal)
CPT/HCPCS: 74019

== ENCOUNTER 2019-07-27 15:14 | Emergency (ER) | payer MEDICAID ==
[~2019-07-27] VITALS: Ht 160 cm; Wt 86.0 kg
[~2019-07-27 15:14] MED LIST changes: -OMEP-280 PO; +OMEP20CA18 PO
--- OUTSIDE RECORDS SUMMARY | 2019-07-27 15:20 | XMS REPORT | Continuity of Care Document ---
Author Organization Unknown Address Unknown Phone Unavailable Allergies Active Description Code Type Severity Reaction Onset Reported/Identified Relationship to Patient Clinical Status Yes morphine [id number] Drug Allergy Unknown N/A 05/19/2018 Yes sulfamethoxazole [id number] Drug Allergy Unknown N/A 05/19/2018 Yes trimethoprim [id number] Drug Allergy Unknown N/A 05/19/2018 Yes chlorhexidine [id number] Devan g Allergy Unknown N/A 07/29/2018 Yes fluvoxamine [id number] Drug Aller gy Unknown N/A 07/29/2018 Yes hydromorphone [id number] Devan g Allergy Unknown N/A 07/29/2018 Yes latex [id number] Drug Allergy Unknown N/A 07/29/2018 Yes meperidine [id number] Drug Allerg y Unknown N/A 07/29/2018 Yes adhesive tape [id number] Devan g Allergy Unknown N/A 09/28/[id number] ug Allergy Moderate Tardive Dyskine 9 Yes promethazine [id number] Drug Allergy Moderate Tardive Dyskine 9 Medications There is no data. Problems Date Dx Coded Attending Type Code Diagnosis Diagnosed By 05/22/2018 REGINA STRAUSS MD Ot E11. 10 TYPE 2 DIABETES MELLITUS WITH KETOACIDOS 05/22/2018 REGINA STRAUSS MD Ot E66. 9 OBESITY, UNSPECIFIED 05/22/2018 REGINA STRAUSS MD Ot F17.200 NICOTINE DEPENDENCE, UNSPECIFIED, UNCOMP 05/22/2018 REGINA STRAUSS MD Ot F25. 9 SCHIZOAFFECTIVE DISORDER, UNSPECIFIED 05/22/2018 REGINA STRAUSS MD Ot F32. 9 MAJOR DEPRESSIVE DISORDER, SINGLE EPISOD 05/22/2018 REGINA STRAUSS MD Ot F41. 9 ANXIETY DISORDER, UNSPECIFIED 05/22/2018 REGINA STRAUSS MD Ot G47. 33 OBSTRUCTIVE SLEEP APNEA (ADULT) (PEDIATR 05/22/2018 RICA VEGA, REGINA Bailon Ot I10 ESSENTIAL (PRIMARY) HYPERTENSION 05/22/2018 RICA VEGA, REGINA Bailon Ot J44. 9 CHRONIC OBSTRUCTIVE PULMONARY DISEASE, U 05/22/2018 RICA VEGA, REGINA Bailon Ot K21. 9 GASTRO-ESOPHAGEAL REFLUX DISEASE WITHOUT 05/22/2018 RICA VEGA, REGINA Bailon Ot R63. 4 ABNORMAL WEIGHT LOSS 05/22/2018 RICA VEGA, REGINA Bailon Ot Z68. 38 BODY MASS INDEX (BMI) 38.0-38.9, ADULT 05/22/2018 REGINA STRAUSS MD Ot E11. 10 TYPE 2 DIABETES MELLITUS WITH KETOACIDOS 05/22/2018 REGINA STRAUSS MD Ot E66. 9 OBESITY, UNSPECIFIED 05/22/2018 REGINA STRAUSS MD Ot F17.200 NICOTINE DEPENDENCE, UNSPECIFIED, UNCOMP 05/22/2018 REGINA STRAUSS MD Ot F25. 9 SCHIZOAFFECTIVE DISORDER, UNSPECIFIED 05/22/2018 REGINA STRAUSS MD Ot F32. 9 MAJOR DEPRESSIVE DISORDER, SINGLE EPISOD 05/22/2018 REGINA STRAUSS MD Ot F41. 9 ANXIETY DISORDER, UNSPECIFIED 05/22/2018 REGINA STRAUSS MD Ot G47. 33 OBSTRUCTIVE SLEEP APNEA (ADULT) (PEDIATR 05/22/2018 RICA VEGA, REGINA Bailon Ot I10 ESSENTIAL (PRIMARY) HYPERTENSION 05/22/2018 RICA VEGA, REGINA Bailon Ot J44. 9 CHRONIC OBSTRUCTIVE PULMONARY DISEASE, U 05/22/2018 REGINA STRAUSS MD Ot K21. 9 GASTRO-ESOPHAGEAL REFLUX DISEASE WITHOUT 05/22/2018 RICA VEGA, REGINA Bailon Ot R63. 4 ABNORMAL WEIGHT LOSS 05/22/2018 RICA VEGA, REGINA Bailon Ot Z68. 38 BODY MASS INDEX (BMI) 38.0-38.9, ADULT 05/22/2018 REGINA STRAUSS MD Ot E11. 10 TYPE 2 DIABETES MELLITUS WITH KETOACIDOS 05/22/2018 REGINA STRAUSS MD Ot E66. 9 OBESITY, UNSPECIFIED 05/22/2018 REGINA STRAUSS MD Ot F17.200 NICOTINE DEPENDENCE, UNSPECIFIED, UNCOMP 05/22/2018 REGINA STRAUSS MD Ot F25. 9 SCHIZOAFFECTIVE DISORDER, UNSPECIFIED 05/22/2018 REGINA STRAUSS MD Ot F32. 9 MAJOR DEPRESSIVE DISORDER, SINGLE EPISOD 05/22/2018 RICA VEGA, REGINA Bailon Ot F41. 9 ANXIETY DISORDER, UNSPECIFIED 05/22/2018 REGINA STRAUSS MD Ot G47. 33 OBSTRUCTIVE SLEEP APNEA (ADULT) (PEDIATR 05/22/2018 RICA VEGA, REGINA Bailon Ot I10 ESSENTIAL (PRIMARY) HYPERTENSION 05/22/2018 REGINA STRAUSS MD Ot J44. 9 CHRONIC OBSTRUCTIVE PULMONARY DISEASE, U 05/22/2018 REGINA STRAUSS MD Ot K21. 9 GASTRO-ESOPHAGEAL REFLUX DISEASE WITHOUT 05/22/2018 REGINA STRAUSS MD Ot R63. 4 ABNORMAL WEIGHT LOSS 05/22/2018 REGINA STRAUSS MD Ot Z68. 38 BODY MASS INDEX (BMI) 38.0-38.9, ADULT 05/23/2018 REGINA STRAUSS MD Ot E11. 10 TYPE 2 DIABETES MELLITUS WITH KETOACIDOS 05/23/2018 REGINA STRAUSS MD Ot E66. 9 OBESITY, UNSPECIFIED 05/23/2018 REGINA STRAUSS MD Ot F17.200 NICOTINE DEPENDENCE, UNSPECIFIED, UNCOMP 05/23/2018 REGINA STRAUSS MD Ot F25. 9 SCHIZOAFFECTIVE DISORDER, UNSPECIFIED 05/23/2018 REGINA STRAUSS MD Ot F32. 9 MAJOR DEPRESSIVE DISORDER, SINGLE EPISOD 05/23/2018 REGINA STRAUSS MD Ot F41. 9 ANXIETY DISORDER, UNSPECIFIED 05/23/2018 REGINA STRAUSS MD Ot G47. 33 OBSTRUCTIVE SLEEP APNEA (ADULT) (PEDIATR 05/23/2018 REGINA STRAUSS MD Ot I10 ESSENTIAL (PRIMARY) HYPERTENSION 05/23/2018 RICA VEGA, REGINA Bailon Ot J44. 9 CHRONIC OBSTRUCTIVE PULMONARY DISEASE, U 05/23/2018 REGINA STRAUSS MD Ot K21. 0 GASTRO-ESOPHAGEAL REFLUX DISEASE WITH ES 05/23/2018 REGINA STRAUSS MD Ot K21. 9 GASTRO-ESOPHAGEAL REFLUX DISEASE WITHOUT 05/23/2018 REGINA STRAUSS MD Ot K29. 70 GASTRITIS, UNSPECIFIED, WITHOUT BLEEDING 05/23/2018 REGINA STRAUSS MD Ot R10. 13 EPIGASTRIC PAIN 05/23/2018 REGINA STRAUSS MD Ot R11. 2 NAUSEA WITH VOMITING, UNSPECIFIED 05/23/2018 REGINA STRAUSS MD Ot R63. 4 ABNORMAL WEIGHT LOSS 05/23/2018 REGINA STRAUSS MD Ot Z68. 38 BODY MASS INDEX (BMI) 38.0-38.9, ADULT 05/23/2018 REGINA STRAUSS MD Ot Z79. 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 (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 OF INSULIN 05/23/2018 REGINA STRAUSS MD Ot Z88. 2 ALLERGY STATUS TO SULFONAMIDES STATUS 05/23/2018 REGINA STRAUSS MD Ot Z88. 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 65 TYPE 2 DIABETES MELLITUS WITH HYPERGLYCE 07/21/2018 CHRISTINE DECKER DO Ot F25. 9 SCHIZOAFFECTIVE DISORDER, UNSPECIFIED 07/21/2018 CHRISTINE DECKER DO Ot F32. 9 MAJOR DEPRESSIVE DISORDER, SINGLE EPISOD 07/21/2018 CHRISTINE DECKER DO Ot F41. 9 ANXIETY DISORDER, UNSPECIFIED 07/21/2018 CHRISTINE DECKER DO Ot J45.909 UNSPECIFIED ASTHMA, UNCOMPLICATED 07/21/2018 CHRISTINE DECKER DO Ot K21. 9 GASTRO-ESOPHAGEAL REFLUX DISEASE WITHOUT 07/21/2018 CHRISTINE DECKER DO Ot K31. 84 GASTROPARESIS 07/21/2018 CHRISTINE DECKER DO Ot R11. 10 VOMITING, UNSPECIFIED 07/21/2018 CHRISTINE DECKER DO Ot R74. 8 ABNORMAL LEVELS OF OTHER SERUM ENZYMES 07/21/2018 CHRISTINE DECKER DO Ot Z79. 4 JAIL (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 OF INSULIN 07/21/2018 CHRISTINE DECKER DO Ot Z88. 2 ALLERGY STATUS TO SULFONAMIDES STATUS 07/21/2018 CHRISTINE DECKER DO Ot Z88. 5 ALLERGY STATUS TO NARCOTIC AGENT STATUS 07/21/2018 CHRISTINE DECKER DO Ot Z88. 8 ALLERGY STATUS TO OTH DRUG/MEDS/BIOL SUB 07/21/2018 BRIANNE AGUIRRE CHRISTINE Shannen Ot Z91.048 OTHER NONMEDICINAL SUBSTANCE ALLERGY STA 07/24/2018 NIK ESCOBAR MD Ot F17.200 NICOTINE DEPENDENCE, UNSPECIFIED, UNCOMP 07/24/2018 NIK ESCOBAR MD, Ot F25.9 SCHIZOAFFECTIVE DISORDER, UNSPECIFIED 07/24/2018 NIK ESCOBAR MD Ot F32.9 MAJOR DEPRESSIVE DISORDER, SINGLE EPISOD 07/24/2018 NIK ESCOBAR MD, Ot F41.9 ANXIETY DISORDER, UNSPECIFIED 07/24/2018 NIK ESCOBAR MD Ot J01.00 ACUTE MAXILLARY SINUSITIS, UNSPECIFIED 07/24/2018 NIK ESCOBAR MD Ot J45.909 UNSPECIFIED ASTHMA, UNCOMPLICATED 07/24/2018 NIK ESCOBAR MD, Ot K21.9 GASTRO-ESOPHAGEAL REFLUX DISEASE WITHOUT 07/24/2018 NIK ESCOBAR MD Ot K31.84 GASTROPARESIS 07/24/2018 NIK ESCOBAR MD Ot R10.13 EPIGASTRIC PAIN 07/24/2018 NIK ESCOBAR MD Ot R11.2 NAUSEA WITH VOMITING, UNSPECIFIED 07/24/2018 NIK ESCOBAR MD Ot R73.9 HYPERGLYCEMIA, UNSPECIFIED 07/24/2018 NIK ESCOBAR MD Ot Z79.4 JAIL (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 OF INSULIN 07/24/2018 NIK ESCOBAR MD Ot Z79.8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 (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 OF ORAL HYPOGLYC 07/24/2018 NIK ESCOBAR MD Ot Z88.2 ALLERGY STATUS TO SULFONAMIDES STATUS 07/24/2018 NIK ESCOBAR MD Ot Z88.5 ALLERGY STATUS TO NARCOTIC AGENT STATUS 07/24/2018 NIK ESCOBAR MD Ot Z88.8 ALLERGY STATUS TO OTH DRUG/MEDS/BIOL SUB 07/24/2018 NIK ESCOBAR MD Ot Z90.710 ACQUIRED ABSENCE OF BOTH CERVIX AND UTER 07/24/2018 NIK ESCOBAR MD Ot Z91.040 LATEX ALLERGY STATUS 07/24/2018 NIK ESCOBAR MD Ot Z91.048 OTHER NONMEDICINAL SUBSTANCE ALLERGY STA 07/28/2018 NIK ESCOBAR MD Ot F17.200 NICOTINE DEPENDENCE, UNSPECIFIED, UNCOMP 07/28/2018 NIK ESCOBAR MD Ot F25.9 SCHIZOAFFECTIVE DISORDER, UNSPECIFIED 07/28/2018 NIK ESCOBAR MD, Ot F32.9 MAJOR DEPRESSIVE DISORDER, SINGLE EPISOD 07/28/2018 NIK ESCOBAR MD Ot F41.9 ANXIETY DISORDER, UNSPECIFIED 07/28/2018 NIK ESCOBAR MD Ot J01.00 ACUTE MAXILLARY SINUSITIS, UNSPECIFIED 07/28/2018 NIK ESCOBAR MD Ot J45.909 UNSPECIFIED ASTHMA, UNCOMPLICATED 07/28/2018 NIK ESCOBAR MD Ot K21.9 GASTRO-ESOPHAGEAL REFLUX DISEASE WITHOUT 07/28/2018 NIK ESCOBAR MD Ot K31.84 GASTROPARESIS 07/28/2018 NIK ESCOBAR MD Ot R10.13 EPIGASTRIC PAIN 07/28/2018 NIK ESCOBAR MD Ot R11.2 NAUSEA WITH VOMITING, UNSPECIFIED 07/28/2018 NIK ESCOBAR MD Ot R73.9 HYPERGLYCEMIA, UNSPECIFIED 07/28/2018 NIK ESCOBAR MD Ot 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 07/28/2018 NIK ESCOBAR MD Ot Z79.8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 (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 OF ORAL HYPOGLYC 07/28/2018 NIK ESCOBAR MD Ot Z88.2 ALLERGY STATUS TO SULFONAMIDES STATUS 07/28/2018 NIK ESCOBAR MD Ot Z88.5 ALLERGY STATUS TO NARCOTIC AGENT STATUS 07/28/2018 NIK ESCOBAR MD Ot Z88.8 ALLERGY STATUS TO OTH DRUG/MEDS/BIOL SUB 07/28/2018 NIK ESCOBAR MD Ot Z90.710 ACQUIRED ABSENCE OF BOTH CERVIX AND UTER 07/28/2018 NKI ESCOBAR MD Ot Z91.040 LATEX ALLERGY STATUS 07/28/2018 NIK ESCOBAR MD Ot Z91.048 OTHER NONMEDICINAL SUBSTANCE ALLERGY STA 07/28/2018 NIK ESCOBAR MD Ot F17.200 NICOTINE DEPENDENCE, UNSPECIFIED, UNCOMP 07/28/2018 NIK ESCOBAR MD Ot F25.9 SCHIZOAFFECTIVE DISORDER, UNSPECIFIED 07/28/2018 NIK ESCOBAR MD Ot F32.9 MAJOR DEPRESSIVE DISORDER, SINGLE EPISOD 07/28/2018 NIK ESCOBAR MD Ot F41.9 ANXIETY DISORDER, UNSPECIFIED 07/28/2018 NIK ESCOBAR MD Ot J01.00 ACUTE MAXILLARY SINUSITIS, UNSPECIFIED 07/28/2018 NIK ESCOBAR MD Ot J45.909 UNSPECIFIED ASTHMA, UNCOMPLICATED 07/28/2018 NIK ESCOBAR MD Ot K21.9 GASTRO-ESOPHAGEAL REFLUX DISEASE WITHOUT 07/28/2018 NIK ESCOBAR MD Ot K31.84 GASTROPARESIS 07/28/2018 NIK ESCOBAR MD Ot R10.13 EPIGASTRIC PAIN 07/28/2018 NIK ESCOBAR MD, Ot R11.2 NAUSEA WITH VOMITING, UNSPECIFIED 07/28/2018 NIK ESCOBAR MD Ot R73.9 HYPERGLYCEMIA, UNSPECIFIED 07/28/2018 NIK ESCOBAR MD Ot Z79.4 JAIL (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 OF INSULIN 07/28/2018 NIK ESCOBAR MD Ot Z79.84 JAIL (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 OF ORAL HYPOGLYC 07/28/2018 NIK ESCOBAR MD Ot Z88.2 ALLERGY STATUS TO SULFONAMIDES STATUS 07/28/2018 NIK ESCOBAR MD Ot Z88.5 ALLERGY STATUS TO NARCOTIC AGENT STATUS 07/28/2018 NIK ESCOBAR MD Ot Z88.8 ALLERGY STATUS TO OTH DRUG/MEDS/BIOL SUB 07/28/2018 NIK ESCOBAR MD Ot Z90.710 ACQUIRED ABSENCE OF BOTH CERVIX AND UTER 07/28/2018 NIK ESCOBAR MD Ot Z91.040 LATEX ALLERGY STATUS 07/28/2018 NIK ESCOBAR MD Ot Z91.048 OTHER NONMEDICINAL SUBSTANCE ALLERGY STA 07/29/2018 REGINA ROBLES MD Ot B19. 20 UNSPECIFIED VIRAL HEPATITIS C WITHOUT HE 07/29/2018 REGINA ROBLES MD Ot E11. 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 9 SCHIZOAFFECTIVE DISORDER, UNSPECIFIED 07/29/2018 REGINA ROBLES MD Ot F31. 9 BIPOLAR DISORDER, UNSPECIFIED 07/29/2018 MARGARET VEGA, REGINA Eligio Ot F41. 9 ANXIETY DISORDER, UNSPECIFIED 07/29/2018 MARGARET VEGA, REGINA Del Valle Ot J45.909 UNSPECIFIED ASTHMA, UNCOMPLICATED 07/29/2018 MARGARET VEGA, REGINA Del Valle Ot K31. 84 GASTROPARESIS 07/29/2018 MARGARET VEGA, REGINA Eligio Ot R11. 10 VOMITING, UNSPECIFIED 07/29/2018 MARGARET VEGA, REGINA Eligio Ot R11. 2 NAUSEA WITH VOMITING, UNSPECIFIED 07/29/2018 MARGARET VEGA, REGINA Del Valle Ot Z77. 22 CNTCT W AND EXPSR TO ENVIRON TOBACCO SMO 07/29/2018 MARGARET VEGA, REGINA Del Valle Ot Z79. 4 JAIL (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 OF INSULIN 07/29/2018 MARGARET VEGA, REGINA Eligio Ot Z87. 19 PERSONAL HISTORY OF OTHER DISEASES OF TH 07/29/2018 MARGARET VEGA, REGINA Eligio Ot Z88. 2 ALLERGY STATUS TO SULFONAMIDES STATUS 07/29/2018 MARGARET VEGA, REGINA Del Valle Ot Z88. 5 ALLERGY STATUS TO NARCOTIC AGENT STATUS 07/29/2018 MARGARET VEGA, REGINA Eligio Ot Z88. 8 ALLERGY STATUS TO OTH DRUG/MEDS/BIOL SUB 07/29/2018 MARGARET VEGA, REGINA Eligio Ot Z90. 49 ACQUIRED ABSENCE OF OTHER SPECIFIED PART 07/29/2018 MARGARET VEGA, REGINA Del Valle Ot Z90.710 ACQUIRED ABSENCE OF BOTH CERVIX AND UTER 07/29/2018 MARGARET VEGA, REGINA Eligio Ot Z91.040 LATEX ALLERGY STATUS 07/29/2018 MARGARET VEGA, REGINA Del Valle Ot Z91.048 OTHER NONMEDICINAL SUBSTANCE ALLERGY STA 07/29/2018 MARGARET VEGA, REGINA Eligio Ot Z98.890 OTHER SPECIFIED POSTPROCEDURAL STATES 08/02/2018 MARGARET VEGA, REGINA Eligio Ot B19. 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 9 SCHIZOAFFECTIVE DISORDER, UNSPECIFIED 08/02/2018 MARGARET VEGA, REGINA Del Valle Ot F31. 9 BIPOLAR DISORDER, UNSPECIFIED 08/02/2018 MARGARET VEGA, REGINA Del Valle Ot F41. 9 ANXIETY DISORDER, UNSPECIFIED 08/02/2018 MARGARET VEGA, REGINA Del Valle Ot J45.909 UNSPECIFIED ASTHMA, UNCOMPLICATED 08/02/2018 MARGARET VEGA, REGINA Del Valle Ot K31. 84 GASTROPARESIS 08/02/2018 MARGARET VEGA, REGINA Del Valle Ot R11. 10 VOMITING, UNSPECIFIED 08/02/2018 MARGARET VEGA, REGINA Del Valle Ot R11. 2 NAUSEA WITH VOMITING, UNSPECIFIED 08/02/2018 MARGARET VEGA, REGINA Del Valle Ot Z77. 22 CNTCT W AND EXPSR TO ENVIRON TOBACCO SMO 08/02/2018 MARGARET VEGA, REGINA Eligio Ot Z79. 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 (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 OF INSULIN 08/02/2018 MARGARET VEGA REGINA Eligio Ot Z87. 19 PERSONAL HISTORY OF OTHER DISEASES OF TH 08/02/2018 MARGARET VEGA, REGINA Del Valle Ot Z88. 2 ALLERGY STATUS TO SULFONAMIDES STATUS 08/02/2018 REGINA ROBLES MD Ot Z88. 5 ALLERGY STATUS TO NARCOTIC AGENT STATUS 08/02/2018 MARGARET VEGA, REGINA Del Valle Ot Z88. 8 ALLERGY STATUS TO OTH DRUG/MEDS/BIOL SUB 08/02/2018 MARGARET VEGA REGINA Eligio Ot Z90. 49 ACQUIRED ABSENCE OF OTHER SPECIFIED PART 08/02/2018 REGINA ROBLES MD Ot Z90.710 ACQUIRED ABSENCE OF BOTH CERVIX AND UTER 08/02/2018 MARGARET VEGA, REGINA Eligio Ot Z91.040 LATEX ALLERGY STATUS 08/02/2018 MARGARET VEGA REGINA Eligio Ot Z91.048 OTHER NONMEDICINAL SUBSTANCE ALLERGY STA 08/02/2018 MARGARET VEGA REGINA Eligio Ot Z98.890 OTHER SPECIFIED POSTPROCEDURAL STATES 08/09/2018 MICHAEL VEGA, IVANA Landaverde Ot B19.20 UNSPECIFIED VIRAL HEPATITIS C WITHOUT HE 08/09/2018 MICHAEL VEGA, IVANA Landaverde Ot E11.43 TYPE 2 DIABETES W DIABETIC AUTONOMIC (PO 08/09/2018 MICHAEL VEGA, IVANA Landaverde Ot F17.210 NICOTINE DEPENDENCE, CIGARETTES, UNCOMPL 08/09/2018 MICHAEL VEGA, IVANA Landaverde Ot F25 .9 SCHIZOAFFECTIVE DISORDER, UNSPECIFIED 08/09/2018 IVANA RODRIGUEZ MD Ot F32 .9 MAJOR DEPRESSIVE DISORDER, SINGLE EPISOD 08/09/2018 IVANA RODRIGUEZ MD Ot F41 .9 ANXIETY DISORDER, UNSPECIFIED 08/09/2018 IVANA RODRIGUEZ MD Ot J45.909 UNSPECIFIED ASTHMA, UNCOMPLICATED 08/09/2018 IVANA RODRIGUEZ MD Ot K21 .9 GASTRO-ESOPHAGEAL REFLUX DISEASE WITHOUT 08/09/2018 IVANA RODRIGUEZ MD Ot K31.84 GASTROPARESIS 08/09/2018 IVANA RODRIGUEZ MD Ot R11.10 VOMITING, UNSPECIFIED 08/09/2018 IVANA RODRIGUEZ MD Ot Z79 .4 JAIL (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 OF INSULIN 08/09/2018 IVANA RODRIGUEZ MD Ot Z88 .2 ALLERGY STATUS TO SULFONAMIDES STATUS 08/09/2018 IVANA RODRIGUEZ MD Ot Z88 .5 ALLERGY STATUS TO NARCOTIC AGENT STATUS 08/09/2018 IVANA RODRIGUEZ MD Ot Z88 .8 ALLERGY STATUS TO OTH DRUG/MEDS/BIOL SUB 08/09/2018 IVANA RODRIGUEZ MD Ot Z90.710 ACQUIRED ABSENCE OF BOTH CERVIX AND UTER 08/09/2018 IVANA RODRIGUEZ MD Ot Z91.040 LATEX ALLERGY STATUS 08/09/2018 IVANA RODRIGUEZ MD Ot Z91.048 OTHER NONMEDICINAL SUBSTANCE ALLERGY STA 08/11/2018 IVANA RODRIGUEZ MD Ot B19.20 UNSPECIFIED VIRAL HEPATITIS C WITHOUT HE 08/11/2018 IVANA RODRIGUEZ MD Ot E11.43 TYPE 2 DIABETES W DIABETIC AUTONOMIC (PO 08/11/2018 IVANA RODRIGUEZ MD Ot F17.210 NICOTINE DEPENDENCE, CIGARETTES, UNCOMPL 08/11/2018 IVANA RODRIGUEZ MD Ot F25 .9 SCHIZOAFFECTIVE DISORDER, UNSPECIFIED 08/11/2018 IVANA RODRIGUEZ MD Ot F32 .9 MAJOR DEPRESSIVE DISORDER, SINGLE EPISOD 08/11/2018 IVANA RODRIGUEZ MD Ot F41 .9 ANXIETY DISORDER, UNSPECIFIED 08/11/2018 IVANA RODRIGUEZ MD Ot J45.909 UNSPECIFIED ASTHMA, UNCOMPLICATED 08/11/2018 IVANA RODRIGUEZ MD Ot K21 .9 GASTRO-ESOPHAGEAL REFLUX DISEASE WITHOUT 08/11/2018 IVANA RODRIGUEZ MD Ot K31.84 GASTROPARESIS 08/11/2018 IVANA RODRIGUEZ MD Ot R11.10 VOMITING, UNSPECIFIED 08/11/2018 IVANA RODRIGUEZ MD Ot Z79 .4 JAIL (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 OF INSULIN 08/11/2018 IVANA RODRIGUEZ MD Ot Z88 .2 ALLERGY STATUS TO SULFONAMIDES STATUS 08/11/2018 IVANA RODRIGUEZ MD Ot Z88 .5 ALLERGY STATUS TO NARCOTIC AGENT STATUS 08/11/2018 IVANA RODRIGUEZ MD Ot Z88 .8 ALLERGY STATUS TO OTH DRUG/MEDS/BIOL SUB 08/11/2018 IVANA RODRIGUEZ MD Ot Z90.710 ACQUIRED ABSENCE OF BOTH CERVIX AND UTER 08/11/2018 IVANA RODRIGUEZ MD Ot Z91.040 LATEX ALLERGY STATUS 08/11/2018 IVANA RODRIGUEZ MD Ot Z91.048 OTHER NONMEDICINAL SUBSTANCE ALLERGY STA 09/22/2018 CHANDRA PANDEY DOINA T Ot B19.20 UNSPECIFIED VIRAL HEPATITIS C WITHOUT HE 09/22/2018 NICHOL PANDEY DO T Ot E11.43 TYPE 2 DIABETES W DIABETIC AUTONOMIC (PO 09/22/2018 CHANDRA PANDEY DOINA T Ot F17.210 NICOTINE DEPENDENCE, CIGARETTES, UNCOMPL 09/22/2018 CHANDRA PANDEY DOINA T Ot F25.9 SCHIZOAFFECTIVE DISORDER, UNSPECIFIED 09/22/2018 CHANDRA PANDEY DOINA T Ot F32.9 MAJOR DEPRESSIVE DISORDER, SINGLE EPISOD 09/22/2018 CHANDRA PANDEY DOINA T Ot F41.9 ANXIETY DISORDER, UNSPECIFIED 09/22/2018 KATHERIN AGUIRRE NICHOL T Ot J45.909 UNSPECIFIED ASTHMA, UNCOMPLICATED 09/22/2018 CHANDRA PANDEY DOINA T Ot K21.9 GASTRO-ESOPHAGEAL REFLUX DISEASE WITHOUT 09/22/2018 CHANDRA PANDEY DOINA T Ot K31.84 GASTROPARESIS 09/22/2018 CHANDRA PANDEY DOINA T Ot R11.2 NAUSEA WITH VOMITING, UNSPECIFIED 09/22/2018 CHANDRA PANDEY DOINA T Ot 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 09/22/2018 CHANDRA PANDEY DOINA T Ot Z88.2 ALLERGY STATUS TO SULFONAMIDES STATUS 09/22/2018 KATHERIN AGUIRRE NICHOL T Ot Z88.5 ALLERGY STATUS TO NARCOTIC AGENT STATUS 09/22/2018 CHANDRA PANDEY DOINA T Ot Z88.6 ALLERGY STATUS TO ANALGESIC AGENT STATUS 09/22/2018 CHANDRA PANDEY DOINA T Ot Z88.8 ALLERGY STATUS TO OTH DRUG/MEDS/BIOL SUB 09/22/2018 CHANDRA PANDEY DOINA T Ot Z91.048 OTHER NONMEDICINAL SUBSTANCE ALLERGY STA 09/28/2018 KEMAL VEGA, DONAL W Ot B19. 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 5 HYPERLIPIDEMIA, UNSPECIFIED 09/28/2018 DONAL SOMMER MD, Ot F25. 9 SCHIZOAFFECTIVE DISORDER, UNSPECIFIED 09/28/2018 DONAL SOMMER MD, Ot F32. 9 MAJOR DEPRESSIVE DISORDER, SINGLE EPISOD 09/28/2018 DONAL SOMMER MD, Ot F41. 9 ANXIETY DISORDER, UNSPECIFIED 09/28/2018 DONAL SOMMER MD, Ot G43. A0 CYCLICAL VOMITING, NOT INTRACTABLE 09/28/2018 DONAL SOMMER MD, Ot I10 ESSENTIAL (PRIMARY) HYPERTENSION 09/28/2018 DONAL SOMMER MD, Ot J45.909 UNSPECIFIED ASTHMA, UNCOMPLICATED 09/28/2018 DONAL SOMMER MD, Ot K21. 9 GASTRO-ESOPHAGEAL REFLUX DISEASE WITHOUT 09/28/2018 DONAL SOMMER MD, Ot K31. 84 GASTROPARESIS 09/28/2018 DONAL SOMMER MD, Ot R11. 2 NAUSEA WITH VOMITING, UNSPECIFIED 09/28/2018 DONAL SOMMER MD, Ot Z77. 22 CNTCT W AND EXPSR TO ENVIRON TOBACCO SMO 09/28/2018 DONAL SOMMER MD, Ot Z79. 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 (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 OF INSULIN 09/28/2018 DONAL SOMMER MD, Ot Z88. 2 ALLERGY STATUS TO SULFONAMIDES STATUS 09/28/2018 DONAL SOMMER MD, Ot Z88. 5 ALLERGY STATUS TO NARCOTIC AGENT STATUS 09/28/2018 DONAL SOMMER MD, Ot Z88. 8 ALLERGY STATUS TO OTH DRUG/MEDS/BIOL SUB 09/28/2018 DONAL SOMMER MD, Ot Z90.710 ACQUIRED ABSENCE OF BOTH CERVIX AND UTER 09/28/2018 DONAL SOMMER MD, Ot Z91.040 LATEX ALLERGY STATUS 09/28/2018 DONAL SOMMER MD, Ot Z91.048 OTHER NONMEDICINAL SUBSTANCE ALLERGY STA 09/28/2018 DONAL SOMMER MD, Ot Z98.890 OTHER SPECIFIED POSTPROCEDURAL STATES 10/01/2018 BRIAN WRIGHT DO Ot B19.20 UNSPECIFIED VIRAL HEPATITIS C WITHOUT HE 10/01/2018 BRIAN WRIGHT DO, Ot E11.43 TYPE 2 DIABETES W DIABETIC AUTONOMIC (PO 10/01/2018 BRIAN WRIGHT DO, Ot F20.9 SCHIZOPHRENIA, UNSPECIFIED 10/01/2018 BRIAN WRIGHT DO, Ot F32.9 MAJOR DEPRESSIVE DISORDER, SINGLE EPISOD 10/01/2018 BRIAN WRIGHT DO, Ot F41.9 ANXIETY DISORDER, UNSPECIFIED 10/01/2018 BRIAN WRIGHT DO, Ot G43.A0 CYCLICAL VOMITING, NOT INTRACTABLE 10/01/2018 BRIAN WRIGHT DO, Ot J45.909 UNSPECIFIED ASTHMA, UNCOMPLICATED 10/01/2018 BRIAN WRIGHT DO, Ot K21.9 GASTRO-ESOPHAGEAL REFLUX DISEASE WITHOUT 10/01/2018 BRIAN WRIGHT DO, Ot K31.84 GASTROPARESIS 10/01/2018 BRIAN WRIGHT DO, Ot R10.84 GENERALIZED ABDOMINAL PAIN 10/01/2018 BRIAN WRIGHT DO, Ot Z77.22 CNTCT W AND EXPSR TO ENVIRON TOBACCO SMO 10/01/2018 BRIAN WRIGHT DO, Ot 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 20 UNSPECIFIED VIRAL HEPATITIS C WITHOUT HE 10/03/2018 DONAL SOMMER MD, Ot E11. 43 TYPE 2 DIABETES W DIABETIC AUTONOMIC (PO 10/03/2018 KEMAL VEGA, DONAL Aguilera Ot E78. 5 HYPERLIPIDEMIA, UNSPECIFIED 10/03/2018 DONAL SOMMER MD, Ot F25. 9 SCHIZOAFFECTIVE DISORDER, UNSPECIFIED 10/03/2018 DONAL SOMMER MD Ot F32. 9 MAJOR DEPRESSIVE DISORDER, SINGLE EPISOD 10/03/2018 DONAL SOMMER MD, Ot F41. 9 ANXIETY DISORDER, UNSPECIFIED 10/03/2018 DONAL SOMMER MD Ot G43. A0 CYCLICAL VOMITING, NOT INTRACTABLE 10/03/2018 DONAL SOMMER MD Ot I10 ESSENTIAL (PRIMARY) HYPERTENSION 10/03/2018 DONAL SOMMER MD, Ot J45.909 UNSPECIFIED ASTHMA, UNCOMPLICATED 10/03/2018 DONAL SOMMER MD, Ot K21. 9 GASTRO-ESOPHAGEAL REFLUX DISEASE WITHOUT 10/03/2018 DONAL SOMMER MD, Ot K31. 84 GASTROPARESIS 10/03/2018 DONAL SOMMER MD, Ot R11. 2 NAUSEA WITH VOMITING, UNSPECIFIED 10/03/2018 DONAL SOMMER MD Ot Z77. 22 CNTCT W AND EXPSR TO ENVIRON TOBACCO SMO 10/03/2018 DONAL SOMMER MD Ot Z79. 4 JAIL (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 OF INSULIN 10/03/2018 DONAL SOMMER MD Ot Z88. 2 ALLERGY STATUS TO SULFONAMIDES STATUS 10/03/2018 DONAL SOMMER MD Ot Z88. 5 ALLERGY STATUS TO NARCOTIC AGENT STATUS 10/03/2018 DONAL SOMMER MD Ot Z88. 8 ALLERGY STATUS TO OTH DRUG/MEDS/BIOL SUB 10/03/2018 DONAL SOMMER MD Ot Z90.710 ACQUIRED ABSENCE OF BOTH CERVIX AND UTER 10/03/2018 DONAL SOMMER MD Ot Z91.040 LATEX ALLERGY STATUS 10/03/2018 DONAL SOMMER MD Ot Z91.048 OTHER NONMEDICINAL SUBSTANCE ALLERGY STA 10/03/2018 DONAL SOMMER MD Ot Z98.890 OTHER SPECIFIED POSTPROCEDURAL STATES 10/05/2018 DONAL SOMMER MD Ot B19. 20 UNSPECIFIED VIRAL HEPATITIS C WITHOUT HE 10/05/2018 DONAL SOMMER MD Ot E11. 43 TYPE 2 DIABETES W DIABETIC AUTONOMIC (PO 10/05/2018 DONAL SOMMER MD Ot E78. 5 HYPERLIPIDEMIA, UNSPECIFIED 10/05/2018 DONAL SOMMER MD, Ot F25. 9 SCHIZOAFFECTIVE DISORDER, UNSPECIFIED 10/05/2018 DONAL SOMMER MD, Ot F32. 9 MAJOR DEPRESSIVE DISORDER, SINGLE EPISOD 10/05/2018 DONAL SOMMER MD, Ot F41. 9 ANXIETY DISORDER, UNSPECIFIED 10/05/2018 DONAL SOMMER MD Ot G43. A0 CYCLICAL VOMITING, NOT INTRACTABLE 10/05/2018 DONAL SOMMER MD Ot I10 ESSENTIAL (PRIMARY) HYPERTENSION 10/05/2018 DONAL SOMMER MD Ot J45.909 UNSPECIFIED ASTHMA, UNCOMPLICATED 10/05/2018 DONAL SOMMER MD Ot K21. 9 GASTRO-ESOPHAGEAL REFLUX DISEASE WITHOUT 10/05/2018 DONAL SOMMER MD, Ot K31. 84 GASTROPARESIS 10/05/2018 DONAL SOMMER MD, Ot R11. 2 NAUSEA WITH VOMITING, UNSPECIFIED 10/05/2018 DONAL SOMMER MD Ot Z77. 22 CNTCT W AND EXPSR TO ENVIRON TOBACCO SMO 10/05/2018 DONAL SOMMER MD Ot Z79. 4 JAIL (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 OF INSULIN 10/05/2018 DONAL SOMMER MD Ot Z88. 2 ALLERGY STATUS TO SULFONAMIDES STATUS 10/05/2018 DONAL SOMMER MD Ot Z88. 5 ALLERGY STATUS TO NARCOTIC AGENT STATUS 10/05/2018 DONAL SOMMER MD Ot Z88. 8 ALLERGY STATUS TO OTH DRUG/MEDS/BIOL SUB 10/05/2018 DONAL SOMMER MD Ot Z90.710 ACQUIRED ABSENCE OF BOTH CERVIX AND UTER 10/05/2018 DONAL SOMMER MD Ot Z91.040 LATEX ALLERGY STATUS 10/05/2018 DONAL SOMMER MD Ot Z91.048 OTHER NONMEDICINAL SUBSTANCE ALLERGY STA 10/05/2018 DONAL SOMMER MD Ot Z98.890 OTHER SPECIFIED POSTPROCEDURAL STATES 10/05/2018 BRIAN WRIGHT DO Ot B19.20 UNSPECIFIED VIRAL HEPATITIS C WITHOUT HE 10/05/2018 BRIAN WRIGHT DO Ot E11.43 TYPE 2 DIABETES W DIABETIC AUTONOMIC (PO 10/05/2018 BRIAN WRIGHT DO Ot F20.9 SCHIZOPHRENIA, UNSPECIFIED 10/05/2018 RBIAN WRIGHT DO Ot F32.9 MAJOR DEPRESSIVE DISORDER, SINGLE EPISOD 10/05/2018 BRIAN WIRGHT DO, Ot F41.9 ANXIETY DISORDER, UNSPECIFIED 10/05/2018 BRIAN WRIGHT DO, Ot G43.A0 CYCLICAL VOMITING, NOT INTRACTABLE 10/05/2018 BRIAN WRIGHT DO, Ot J45.909 UNSPECIFIED ASTHMA, UNCOMPLICATED 10/05/2018 BRIAN WRIGHT DO, Ot K21.9 GASTRO-ESOPHAGEAL REFLUX DISEASE WITHOUT 10/05/2018 BRIAN WRIGHT DO, Ot K31.84 GASTROPARESIS 10/05/2018 BRIAN WRIGHT DO, Ot R10.84 GENERALIZED ABDOMINAL PAIN 10/05/2018 BRIAN WRIGHT DO, Ot Z77.22 CNTCT W AND EXPSR TO ENVIRON TOBACCO SMO 10/05/2018 BRIAN WRIGHT DO, Ot 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 10/05/2018 BRIAN WRIGHT DO, Ot Z88.2 ALLERGY STATUS TO SULFONAMIDES STATUS 10/05/2018 BRIAN WRIGHT DO, Ot Z88.5 ALLERGY STATUS TO NARCOTIC AGENT STATUS 10/05/2018 BRIAN WRIGHT DO, Ot Z88.8 ALLERGY STATUS TO OTH DRUG/MEDS/BIOL SUB 10/05/2018 BRIAN WRIGHT DO, Ot Z90.710 ACQUIRED ABSENCE OF BOTH CERVIX AND UTER 10/05/2018 BRIAN WRIGHT DO, Ot Z91.040 LATEX ALLERGY STATUS 10/05/2018 BRIAN WRIGHT DO, Ot Z91.048 OTHER NONMEDICINAL SUBSTANCE ALLERGY STA 10/05/2018 BRIAN WRIHGT DO, Ot Z98.890 OTHER SPECIFIED POSTPROCEDURAL STATES 10/09/2018 AILYN VEGA, ADA Pride Ot B19.20 UNSPECIFIED VIRAL HEPATITIS C WITHOUT HE 10/09/2018 AILYN VEGA, ADA Pride Ot E11.43 TYPE 2 DIABETES W DIABETIC AUTONOMIC (PO 10/09/2018 AILYN VEGA, ADA Pride Ot F17.210 NICOTINE DEPENDENCE, CIGARETTES, UNCOMPL 10/09/2018 ADA ROBERTSON MD Ot F25.9 SCHIZOAFFECTIVE DISORDER, UNSPECIFIED 10/09/2018 ADA ROBERTSON MD, Ot F32.9 MAJOR DEPRESSIVE DISORDER, SINGLE EPISOD 10/09/2018 ADA ROBERTSON MD, Ot F41.9 ANXIETY DISORDER, UNSPECIFIED 10/09/2018 AILYN VEGA, ADA Pride Ot J45.909 UNSPECIFIED ASTHMA, UNCOMPLICATED 10/09/2018 ADA ROBERTSON MD, Ot K21.9 GASTRO-ESOPHAGEAL REFLUX DISEASE WITHOUT 10/09/2018 ADA ROBERTSON MD Ot K31.84 GASTROPARESIS 10/09/2018 ADA ROBERTSON MD, Ot R10.10 UPPER ABDOMINAL PAIN, UNSPECIFIED 10/09/2018 ADA ROBERTSON MD Ot R11.2 NAUSEA WITH VOMITING, UNSPECIFIED 10/09/2018 ADA ROBERTSON MD, Ot R30.0 DYSURIA 10/09/2018 ADA ROBERTSON MD, Ot 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 10/09/2018 ADA ROBERTSON MD, Ot Z87.19 PERSONAL HISTORY OF OTHER DISEASES OF TH 10/09/2018 ADA ROBERTSON MD, Ot Z88.2 ALLERGY STATUS TO SULFONAMIDES STATUS 10/09/2018 ADA ROBERTSON MD, Ot Z88.8 ALLERGY STATUS TO OTH DRUG/MEDS/BIOL SUB 10/09/2018 ADA ROBERTSON MD, Ot Z90.710 ACQUIRED ABSENCE OF BOTH CERVIX AND UTER 10/09/2018 ADA ROBERTSON MD, Ot Z91.040 LATEX ALLERGY STATUS 10/09/2018 ADA ROBERTSON MD, Ot Z91.048 OTHER NONMEDICINAL SUBSTANCE ALLERGY STA 10/09/2018 ADA ROBERTSON MD Ot Z98.890 OTHER SPECIFIED POSTPROCEDURAL STATES 10/09/2018 ESTELA KAUR Ot M51.24 OTHER INTERVERTEBRAL DISC DISPLACEMENT, 10/09/2018 ESTELA KAUR Ot M50.322 OTHER CERVICAL DISC DEGENERATION AT C5-C 10/09/2018 DONAL SOMMER MD, Ot B19. 20 UNSPECIFIED VIRAL HEPATITIS C WITHOUT HE 10/09/2018 DONAL SOMMER MD, Ot E11. 43 TYPE 2 DIABETES W DIABETIC AUTONOMIC (PO 10/09/2018 DONAL SOMMER MD, Ot E78. 5 HYPERLIPIDEMIA, UNSPECIFIED 10/09/2018 DONAL SOMMER MD, Ot F25. 9 SCHIZOAFFECTIVE DISORDER, UNSPECIFIED 10/09/2018 KEMAL MD, DONAL W Ot F32. 9 MAJOR DEPRESSIVE DISORDER, SINGLE EPISOD 10/09/2018 DONAL SOMMER MD, Ot F41. 9 ANXIETY DISORDER, UNSPECIFIED 10/09/2018 DONAL SOMMER MD, Ot G43. A0 CYCLICAL VOMITING, NOT INTRACTABLE 10/09/2018 DONAL SOMMER MD Ot I10 ESSENTIAL (PRIMARY) HYPERTENSION 10/09/2018 DONAL SOMMER MD, Ot J45.909 UNSPECIFIED ASTHMA, UNCOMPLICATED 10/09/2018 DONAL SOMMER MD, Ot K21. 9 GASTRO-ESOPHAGEAL REFLUX DISEASE WITHOUT 10/09/2018 DONAL SOMMER MD, Ot K31. 84 GASTROPARESIS 10/09/2018 DONAL SOMMER MD, Ot R11. 2 NAUSEA WITH VOMITING, UNSPECIFIED 10/09/2018 DONAL SOMMER MD Ot Z77. 22 CNTCT W AND EXPSR TO ENVIRON TOBACCO SMO 10/09/2018 DONAL SOMMER MD Ot Z79. 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 (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 OF INSULIN 10/09/2018 DONAL SOMMER MD, Ot Z88. 2 ALLERGY STATUS TO SULFONAMIDES STATUS 10/09/2018 DONAL SOMMER MD Ot Z88. 5 ALLERGY STATUS TO NARCOTIC AGENT STATUS 10/09/2018 DONAL SOMMER MD Ot Z88. 8 ALLERGY STATUS TO OTH DRUG/MEDS/BIOL SUB 10/09/2018 DONAL SOMMER MD Ot Z90.710 ACQUIRED ABSENCE OF BOTH CERVIX AND UTER 10/09/2018 DONAL SOMMER MD Ot Z91.040 LATEX ALLERGY STATUS 10/09/2018 DONAL SOMMER MD Ot Z91.048 OTHER NONMEDICINAL SUBSTANCE ALLERGY STA 10/09/2018 DONAL SOMMER MD Ot Z98.890 OTHER SPECIFIED POSTPROCEDURAL STATES 10/12/2018 ADA ROBERTSON MD Ot B19.20 UNSPECIFIED VIRAL HEPATITIS C WITHOUT HE 10/12/2018 ADA ROBERTSON MD Ot E11.43 TYPE 2 DIABETES W DIABETIC AUTONOMIC (PO 10/12/2018 ADA ROBERTSON MD Ot F17.210 NICOTINE DEPENDENCE, CIGARETTES, UNCOMPL 10/12/2018 ADA ROBERTSON MD, Ot F25.9 SCHIZOAFFECTIVE DISORDER, UNSPECIFIED 10/12/2018 ADA ROBERTSON MD, Ot F32.9 MAJOR DEPRESSIVE DISORDER, SINGLE EPISOD 10/12/2018 ADA ROBERTSON MD, Ot F41.9 ANXIETY DISORDER, UNSPECIFIED 10/12/2018 ADA ROBERTSON MD, Ot J45.909 UNSPECIFIED ASTHMA, UNCOMPLICATED 10/12/2018 ADA ROBERTSON MD, Ot K21.9 GASTRO-ESOPHAGEAL REFLUX DISEASE WITHOUT 10/12/2018 ADA ROBERTSON MD, Ot K31.84 GASTROPARESIS 10/12/2018 ADA ROBERTSON MD, Ot R10.10 UPPER ABDOMINAL PAIN, UNSPECIFIED 10/12/2018 ADA ROBERTSON MD, Ot R11.2 NAUSEA WITH VOMITING, UNSPECIFIED 10/12/2018 ADA ROBETRSON MD, Ot R30.0 DYSURIA 10/12/2018 ADA ROBERTSON MD, Ot 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 10/12/2018 ADA ROBERTSON MD, Ot Z87.19 PERSONAL HISTORY OF OTHER DISEASES OF TH 10/12/2018 ADA ROBERTSON MD, Ot Z88.2 ALLERGY STATUS TO SULFONAMIDES STATUS 10/12/2018 ADA ROBERTSON MD, Ot Z88.8 ALLERGY STATUS TO OTH DRUG/MEDS/BIOL SUB 10/12/2018 ADA ROBERTSON MD, Ot Z90.710 ACQUIRED ABSENCE OF BOTH CERVIX AND UTER 10/12/2018 ADA ROBERTSON MD, Ot Z91.040 LATEX ALLERGY STATUS 10/12/2018 ADA ROBERTSON MD, Ot Z91.048 OTHER NONMEDICINAL SUBSTANCE ALLERGY STA 10/12/2018 ADA ROBERTSON MD, Ot Z98.890 OTHER SPECIFIED POSTPROCEDURAL STATES 10/13/2018 ADA ROBERTSON MD, Ot B19.20 UNSPECIFIED VIRAL HEPATITIS C WITHOUT HE 10/13/2018 ADA ROBERTSON MD, Ot E11.43 TYPE 2 DIABETES W DIABETIC AUTONOMIC (PO 10/13/2018 ADA ROBERTSON MD, Ot F17.210 NICOTINE DEPENDENCE, CIGARETTES, UNCOMPL 10/13/2018 ADA ROBERTSON MD, Ot F25.9 SCHIZOAFFECTIVE DISORDER, UNSPECIFIED 10/13/2018 ADA ROBERTSON MD, Ot F32.9 MAJOR DEPRESSIVE DISORDER, SINGLE EPISOD 10/13/2018 ADA ROBERTSON MD, Ot F41.9 ANXIETY DISORDER, UNSPECIFIED 10/13/2018 ADA ROBERTSON MD, Ot J45.909 UNSPECIFIED ASTHMA, UNCOMPLICATED 10/13/2018 ADA ROBERTSON MD Ot K21.9 GASTRO-ESOPHAGEAL REFLUX DISEASE WITHOUT 10/13/2018 ADA ROBERTSON MD, Ot K31.84 GASTROPARESIS 10/13/2018 ADA ROBERTSON MD, Ot R10.10 UPPER ABDOMINAL PAIN, UNSPECIFIED 10/13/2018 ADA ROBERTSON MD, Ot R11.2 NAUSEA WITH VOMITING, UNSPECIFIED 10/13/2018 ADA ROBERTSON MD Ot R30.0 DYSURIA 10/13/2018 ADA ROBERTSON MD, Ot Z79.4 JAIL (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 OF INSULIN 10/13/2018 ADA ROBERTSON MD, Ot Z87.19 PERSONAL HISTORY OF OTHER DISEASES OF TH 10/13/2018 ADA ROBERTSON MD, Ot Z88.2 ALLERGY STATUS TO SULFONAMIDES STATUS 10/13/2018 ADA ROBERTSON MD, Ot Z88.8 ALLERGY STATUS TO OTH DRUG/MEDS/BIOL SUB 10/13/2018 ADA ROBERTSON MD Ot Z90.710 ACQUIRED ABSENCE OF BOTH CERVIX AND UTER 10/13/2018 ADA ROBERTSON MD, Ot Z91.040 LATEX ALLERGY STATUS 10/13/2018 ADA ROBERTSON MD, Ot Z91.048 OTHER NONMEDICINAL SUBSTANCE ALLERGY STA 10/13/2018 ADA ROBERTSON MD, Ot Z98.890 OTHER SPECIFIED POSTPROCEDURAL STATES 11/25/2018 MYRIAM REESE MD, Ot B19.2 0 UNSPECIFIED VIRAL HEPATITIS C WITHOUT HE 11/25/2018 MYRIAM REESE MD, Ot E10.4 3 TYPE 1 DIABETES W DIABETIC AUTONOMIC (PO 11/25/2018 MYRIAM REESE MD, Ot E86.0 DEHYDRATION 11/25/2018 MYRIAM REESE MD, Ot E87.2 ACIDOSIS 11/25/2018 MYRIAM REESE MD, Ot E87.6 HYPOKALEMIA 11/25/2018 MYRIAM REESE MD, Ot F25.9 SCHIZOAFFECTIVE DISORDER, UNSPECIFIED 11/25/2018 MYRIAM REESE MD, Ot F32.9 MAJOR DEPRESSIVE DISORDER, SINGLE EPISOD 11/25/2018 MYRIAM REESE MD, Ot F41.9 ANXIETY DISORDER, UNSPECIFIED 11/25/2018 MYRIAM REESE MD, Ot J45.9 09 UNSPECIFIED ASTHMA, UNCOMPLICATED 11/25/2018 MYRIAM REESE MD, Ot K21.9 GASTRO-ESOPHAGEAL REFLUX DISEASE WITHOUT 11/25/2018 MYRIAM REESE MD, Ot K31.8 4 GASTROPARESIS 11/25/2018 MYRIAM REESE MD, Ot R11.2 NAUSEA WITH VOMITING, UNSPECIFIED 11/25/2018 MYRIAM REESE MD, Ot R82.4 ACETONURIA 11/25/2018 MYRIAM REESE MD, Ot Z77.2 2 CNTCT W AND EXPSR TO ENVIRON TOBACCO SMO 11/25/2018 MYRIAM REESE MD, Ot Z79.4 JAIL (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 OF INSULIN 11/25/2018 MYRIAM REESE MD, Ot Z88.1 ALLERGY STATUS TO OTHER ANTIBIOTIC AGENT 11/25/2018 MYRIAM REESE MD, Ot Z88.2 ALLERGY STATUS TO SULFONAMIDES STATUS 11/25/2018 MYRIAM REESE MD, Ot Z88.5 ALLERGY STATUS TO NARCOTIC AGENT STATUS 11/25/2018 MYRIAM REESE MD, Ot Z88.8 ALLERGY STATUS TO OTH DRUG/MEDS/BIOL SUB 11/25/2018 MYRIAM REESE MD, Ot Z90.7 10 ACQUIRED ABSENCE OF BOTH CERVIX AND UTER 11/25/2018 MYRIAM REESE MD, Ot Z91.0 40 LATEX ALLERGY STATUS 11/25/2018 MYRIAM REESE MD, Ot Z99.8 9 DEPENDENCE ON OTHER ENABLING MACHINES AN 11/29/2018 MYRIAM REESE MD, Ot B19.2 0 UNSPECIFIED VIRAL HEPATITIS C WITHOUT HE 11/29/2018 MYRIAM REESE MD, Ot E10.4 3 TYPE 1 DIABETES W DIABETIC AUTONOMIC (PO 11/29/2018 MYRIAM REESE MD, Ot E86.0 DEHYDRATION 11/29/2018 MYRIAM REESE MD Ot E87.2 ACIDOSIS 11/29/2018 MYRIAM REESE MD, Ot E87.6 HYPOKALEMIA 11/29/2018 MYRIAM REESE MD, Ot F25.9 SCHIZOAFFECTIVE DISORDER, UNSPECIFIED 11/29/2018 MYRIAM REESE MD, Ot F32.9 MAJOR DEPRESSIVE DISORDER, SINGLE EPISOD 11/29/2018 MYRIAM REESE MD, Ot F41.9 ANXIETY DISORDER, UNSPECIFIED 11/29/2018 MYRIAM REESE MD, Ot J45.9 09 UNSPECIFIED ASTHMA, UNCOMPLICATED 11/29/2018 MYRIAM REESE MD, Ot K21.9 GASTRO-ESOPHAGEAL REFLUX DISEASE WITHOUT 11/29/2018 MYRIAM REESE MD, Ot K31.8 4 GASTROPARESIS 11/29/2018 MYRIAM ERESE MD, Ot R11.2 NAUSEA WITH VOMITING, UNSPECIFIED 11/29/2018 MYRIAM REESE MD, Ot R82.4 ACETONURIA 11/29/2018 MYRIAM REESE MD, Ot Z77.2 2 CNTCT W AND EXPSR TO ENVIRON TOBACCO SMO 11/29/2018 MYRIAM REESE MD, Ot Z79.4 JAIL (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 OF INSULIN 11/29/2018 MYRIAM REESE MD, Ot Z88.1 ALLERGY STATUS TO OTHER ANTIBIOTIC AGENT 11/29/2018 MYRIAM REESE MD, Ot Z88.2 ALLERGY STATUS TO SULFONAMIDES STATUS 11/29/2018 MYRIAM REESE MD, Ot Z88.5 ALLERGY STATUS TO NARCOTIC AGENT STATUS 11/29/2018 MYRIAM REESE MD, Ot Z88.8 ALLERGY STATUS TO OTH DRUG/MEDS/BIOL SUB 11/29/2018 MYRIAM REESE MD, Ot Z90.7 10 ACQUIRED ABSENCE OF BOTH CERVIX AND UTER 11/29/2018 MYRIAM REESE MD, Ot Z91.0 40 LATEX ALLERGY STATUS 11/29/2018 MYRIAM REESE MD, Ot Z99.8 9 DEPENDENCE ON OTHER ENABLING MACHINES AN 02/02/2019 LUBIN DO, REBECA L Ot B19.2 0 UNSPECIFIED VIRAL HEPATITIS C WITHOUT HE 02/02/2019 LUBIN DO, REBECA L Ot 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 02/02/2019 LUBIN DO, REBECA L Ot F25.9 SCHIZOAFFECTIVE DISORDER, UNSPECIFIED 02/02/2019 LUBIN DO, REBECA L Ot F32.9 MAJOR DEPRESSIVE DISORDER, SINGLE EPISOD 02/02/2019 LUBIN DO, REBECA L Ot F41.9 ANXIETY DISORDER, UNSPECIFIED 02/02/2019 LUBIN DO, REBECA L Ot J45.9 09 UNSPECIFIED ASTHMA, UNCOMPLICATED 02/02/2019 LUBIN DO, REBECA L Ot K21.9 GASTRO-ESOPHAGEAL REFLUX DISEASE WITHOUT 02/02/2019 LUBIN DO, REBECA L Ot K31.8 4 GASTROPARESIS 02/02/2019 LUBIN DO, REBECA L Ot R11.1 0 VOMITING, UNSPECIFIED 02/02/2019 LUBIN DO, REBECA L Ot Z77.2 2 CNTCT W AND EXPSR TO ENVIRON TOBACCO SMO 02/02/2019 LUBIN DO, REBECA L Ot Z79.4 JAIL (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 OF INSULIN 02/02/2019 LUBIN DO, REBECA L Ot Z88.1 ALLERGY STATUS TO OTHER ANTIBIOTIC AGENT 02/02/2019 LUBIN DO, REBECA L Ot Z88.2 ALLERGY STATUS TO SULFONAMIDES STATUS 02/02/2019 LUBIN DO, REBECA L Ot Z88.5 ALLERGY STATUS TO NARCOTIC AGENT STATUS 02/02/2019 LUBIN DO, REBECA L Ot Z88.8 ALLERGY STATUS TO OTH DRUG/MEDS/BIOL SUB 02/02/2019 LUBIN DO, REBECA L Ot Z90.7 10 ACQUIRED ABSENCE OF BOTH CERVIX AND UTER 02/02/2019 LUBIN DO, REBECA L Ot Z99.8 9 DEPENDENCE ON OTHER ENABLING MACHINES AN 02/02/2019 ESTELA KAUR Ot M51.24 OTHER INTERVERTEBRAL DISC DISPLACEMENT, 02/02/2019 ESTELA KAUR Ot M50.322 OTHER CERVICAL DISC DEGENERATION AT C5-C 02/07/2019 LUBIN DO, REBECA L Ot B19.2 0 UNSPECIFIED VIRAL HEPATITIS C WITHOUT HE 02/07/2019 LUBIN DO, REBECA L Ot 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 02/07/2019 LUBIN DO, REBECA L Ot F25.9 SCHIZOAFFECTIVE DISORDER, UNSPECIFIED 02/07/2019 LUBIN DO, REBECA L Ot F32.9 MAJOR DEPRESSIVE DISORDER, SINGLE EPISOD 02/07/2019 LUBIN DO, REBECA L Ot F41.9 ANXIETY DISORDER, UNSPECIFIED 02/07/2019 LUBIN DO, REBECA L Ot J45.9 09 UNSPECIFIED ASTHMA, UNCOMPLICATED 02/07/2019 LUBIN DO, REBECA L Ot K21.9 GASTRO-ESOPHAGEAL REFLUX DISEASE WITHOUT 02/07/2019 LUBIN DO, REBECA L Ot K31.8 4 GASTROPARESIS 02/07/2019 LUBIN DO, REBECA L Ot R11.1 0 VOMITING, UNSPECIFIED 02/07/2019 LUBIN DO, REBECA L Ot Z77.2 2 CNTCT W AND EXPSR TO ENVIRON TOBACCO SMO 02/07/2019 LUBIN DO, REBECA L Ot Z79.4 JAIL (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 OF INSULIN 02/07/2019 LUBIN DO, REBECA L Ot Z88.1 ALLERGY STATUS TO OTHER ANTIBIOTIC AGENT 02/07/2019 LUBIN DO, REBECA L Ot Z88.2 ALLERGY STATUS TO SULFONAMIDES STATUS 02/07/2019 LUBIN DO, REBECA L Ot Z88.5 ALLERGY STATUS TO NARCOTIC AGENT STATUS 02/07/2019 LUBIN DO, REBECA L Ot Z88.8 ALLERGY STATUS TO OTH DRUG/MEDS/BIOL SUB 02/07/2019 LUBIN DO, ERBECA L Ot Z90.7 10 ACQUIRED ABSENCE OF BOTH CERVIX AND UTER 02/07/2019 LUBIN DO, REBECA L Ot Z99.8 9 DEPENDENCE ON OTHER ENABLING MACHINES AN 03/16/2019 ROVENSTINE DO, ALDO L Ot B19.20 UNSPECIFIED VIRAL HEPATITIS C WITHOUT HE 03/16/2019 ROVENSTINE DO, ALDO L Ot E11.43 TYPE 2 DIABETES W DIABETIC AUTONOMIC (PO 03/16/2019 ROVENSTINE DO, ALDO L Ot F25.9 SCHIZOAFFECTIVE DISORDER, UNSPECIFIED 03/16/2019 ROVENSTINE DO ALDO L Ot F32.9 MAJOR DEPRESSIVE DISORDER, SINGLE EPISOD 03/16/2019 ROVENSTINE DO, ALDO L Ot F41.9 ANXIETY DISORDER, UNSPECIFIED 03/16/2019 ROVENSTINE DO, ALDO L Ot J45.909 UNSPECIFIED ASTHMA, UNCOMPLICATED 03/16/2019 ROVENSTINE DO, ALDO L Ot K21.9 GASTRO-ESOPHAGEAL REFLUX DISEASE WITHOUT 03/16/2019 ROVENSTINE DO, ALDO Ashish Ot K31.84 GASTROPARESIS 03/16/2019 ROVENSTINE DO, ALDO Ashish Ot R11.2 NAUSEA WITH VOMITING, UNSPECIFIED 03/16/2019 ROVENSTINE DO, ALDO Ashish Ot Z77.22 CNTCT W AND EXPSR TO ENVIRON TOBACCO SMO 03/16/2019 ROVENSTINE DO, ALDO Ashish Ot 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 03/16/2019 ROVENSTINE DO, ALDO Ashish Ot Z88.1 ALLERGY STATUS TO OTHER ANTIBIOTIC AGENT 03/16/2019 ROVENSTINE DO, ALDO Ashish Ot Z88.2 ALLERGY STATUS TO SULFONAMIDES STATUS 03/16/2019 ROVENSTINE DO, ALDO Hinojosa Ot Z88.5 ALLERGY STATUS TO NARCOTIC AGENT STATUS 03/16/2019 ROVENSTINE DO, ALDO Hinojosa Ot Z88.8 ALLERGY STATUS TO OTH DRUG/MEDS/BIOL SUB 03/16/2019 ROVENSTINE DO ALDO Ashish Ot Z90.710 ACQUIRED ABSENCE OF BOTH CERVIX AND UTER 03/16/2019 ROVENSTINE DO, ALDO Ashish Ot Z91.040 LATEX ALLERGY STATUS 03/18/2019 MYRIAM REESE MD Ot 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 03/18/2019 MYRIAM REESE MD, Ot E83.4 2 HYPOMAGNESEMIA 03/18/2019 MYRIAM REESE MD, Ot E87.6 HYPOKALEMIA 03/18/2019 MYRIAM REESE MD, Ot F25.9 SCHIZOAFFECTIVE DISORDER, UNSPECIFIED 03/18/2019 MYRIAM REESE MD, Ot F32.9 MAJOR DEPRESSIVE DISORDER, SINGLE EPISOD 03/18/2019 MYRIAM REESE MD, Ot F41.9 ANXIETY DISORDER, UNSPECIFIED 03/18/2019 MYRIAM REESE MD, Ot J45.9 09 UNSPECIFIED ASTHMA, UNCOMPLICATED 03/18/2019 MYRIAM REESE MD, Ot K21.9 GASTRO-ESOPHAGEAL REFLUX DISEASE WITHOUT 03/18/2019 MYRIAM REESE MD, Ot K31.8 4 GASTROPARESIS 03/18/2019 MYRIAM REESE MD, Ot R10.1 3 EPIGASTRIC PAIN 03/18/2019 MYRIAM REESE MD, Ot R11.2 NAUSEA WITH VOMITING, UNSPECIFIED 03/18/2019 MYRIAM REESE MD, Ot R55 SYNCOPE AND COLLAPSE 03/18/2019 MYRIAM REESE MD Ot Z77.2 2 CNTCT W AND EXPSR TO ENVIRON TOBACCO SMO 03/18/2019 MYRIAM REESE MD, Ot 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 03/18/2019 MYRIAM REESE MD, Ot Z88.2 ALLERGY STATUS TO SULFONAMIDES STATUS 03/18/2019 MYRIAM REESE MD, Ot Z88.5 ALLERGY STATUS TO NARCOTIC AGENT STATUS 03/18/2019 MYRIAM REESE MD, Ot Z88.8 ALLERGY STATUS TO OTH DRUG/MEDS/BIOL SUB 03/18/2019 MYRIAM REESE MD, Ot Z90.7 10 ACQUIRED ABSENCE OF BOTH CERVIX AND UTER 03/18/2019 MYRIAM REESE MD, Ot Z91.0 40 LATEX ALLERGY STATUS 03/20/2019 ROVENSTINE DO, ALDO L Ot B19.20 UNSPECIFIED VIRAL HEPATITIS C WITHOUT HE 03/20/2019 ROVENSTINE DO, ALDO L Ot E11.43 TYPE 2 DIABETES W DIABETIC AUTONOMIC (PO 03/20/2019 ROVENSTINE DO, ALDO L Ot F25.9 SCHIZOAFFECTIVE DISORDER, UNSPECIFIED 03/20/2019 ROVENSTINE DO, ALDO L Ot F32.9 MAJOR DEPRESSIVE DISORDER, SINGLE EPISOD 03/20/2019 ROVENSTINE DO, ALDO L Ot F41.9 ANXIETY DISORDER, UNSPECIFIED 03/20/2019 ROVENSTINE DO, ALDO L Ot J45.909 UNSPECIFIED ASTHMA, UNCOMPLICATED 03/20/2019 ROVENSTINE DO, ALDO L Ot K21.9 GASTRO-ESOPHAGEAL REFLUX DISEASE WITHOUT 03/20/2019 ROVENSTINE DO, ALDO L Ot K31.84 GASTROPARESIS 03/20/2019 ROVENSTINE DO, ALDO L Ot R11.2 NAUSEA WITH VOMITING, UNSPECIFIED 03/20/2019 ROVENSTINE DO, ALDO L Ot Z77.22 CNTCT W AND EXPSR TO ENVIRON TOBACCO SMO 03/20/2019 ROVENSTINE DO ALDO L Ot Z79.4 JAIL (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 OF INSULIN 03/20/2019 ROVENSTINE DO, ALDO L Ot Z88.1 ALLERGY STATUS TO OTHER ANTIBIOTIC AGENT 03/20/2019 ROVENSTINE DOBRITNEYEN Ashish Ot Z88.2 ALLERGY STATUS TO SULFONAMIDES STATUS 03/20/2019 ROVENSTINE DO ALDO Ashish Ot Z88.5 ALLERGY STATUS TO NARCOTIC AGENT STATUS 03/20/2019 ROVENSTINE DO ALDO Ashish Ot Z88.8 ALLERGY STATUS TO OTH DRUG/MEDS/BIOL SUB 03/20/2019 ROVENSTINE DO ALDO Ashish Ot Z90.710 ACQUIRED ABSENCE OF BOTH CERVIX AND UTER 03/20/2019 ROVENSTINE DO ALDO Ashish Ot Z91.040 LATEX ALLERGY STATUS 04/21/2019 ESTELA KAUR Ot M51.24 OTHER INTERVERTEBRAL DISC DISPLACEMENT, 04/21/2019 ESTELA KAURP Ot M50.322 OTHER CERVICAL DISC DEGENERATION AT C5-C 04/21/2019 MARGARET VEGA, REGINA Del Valle Ot B19. 20 UNSPECIFIED VIRAL HEPATITIS C WITHOUT HE 04/21/2019 MARGARET VEGA, REGINA Del Valle Ot E11. 9 TYPE 2 DIABETES MELLITUS WITHOUT COMPLIC 04/21/2019 MARGARET VEGA, REGINA Del Valle Ot F32. 9 MAJOR DEPRESSIVE DISORDER, SINGLE EPISOD 04/21/2019 MARGARET VEGA, REGINA Del Valle Ot F41. 9 ANXIETY DISORDER, UNSPECIFIED 04/21/2019 MARGARET VEGA, REGINA Del Valle Ot J45.909 UNSPECIFIED ASTHMA, UNCOMPLICATED 04/21/2019 MARGARET VEGA, REGINA Del Valle Ot K21. 9 GASTRO-ESOPHAGEAL REFLUX DISEASE WITHOUT 04/21/2019 MARGARET VEGA, REGINA Del Valle Ot M25.551 PAIN IN RIGHT HIP 04/21/2019 MARGARET VEGA, REGINA Del Valle Ot M25.552 PAIN IN LEFT HIP 04/21/2019 MARGARET VEGA, REGINA Del Valle Ot Z77. 22 CNTCT W AND EXPSR TO ENVIRON TOBACCO SMO 04/21/2019 MARGARET VEGA, REGINA Del Valle Ot Z79. 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 (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 OF INSULIN 04/21/2019 MARGARET VEGA, REGINA Del Valle Ot Z88. 1 ALLERGY STATUS TO OTHER ANTIBIOTIC AGENT 04/21/2019 MARGARET VEGA, REGINA Del Valle Ot Z88. 2 ALLERGY STATUS TO SULFONAMIDES STATUS 04/21/2019 MARGARET VEGA, REGINA Del Valle Ot Z88. 5 ALLERGY STATUS TO NARCOTIC AGENT STATUS 04/21/2019 MARGARET VEGA, REGINA Eligio Ot Z88. 8 ALLERGY STATUS TO OTH DRUG/MEDS/BIOL SUB 04/21/2019 MARGARET VEGA, REGINA Eligio Ot Z90.710 ACQUIRED ABSENCE OF BOTH CERVIX AND UTER 04/27/2019 MARGARET VEGA, REGINA Del Valle Ot B19. 20 UNSPECIFIED VIRAL HEPATITIS C WITHOUT HE 04/27/2019 MARGARET VEGA, REGINA Eligio Ot E11. 9 TYPE 2 DIABETES MELLITUS WITHOUT COMPLIC 04/27/2019 MARGARET VEGA, REGINA Del Valle Ot F32. 9 MAJOR DEPRESSIVE DISORDER, SINGLE EPISOD 04/27/2019 MARGARET VEGA, REGINA Eligio Ot F41. 9 ANXIETY DISORDER, UNSPECIFIED 04/27/2019 MARGARET VEGA, REGINA Eligio Ot J45.909 UNSPECIFIED ASTHMA, UNCOMPLICATED 04/27/2019 MARGARET VEGA, REGINA Eligio Ot K21. 9 GASTRO-ESOPHAGEAL REFLUX DISEASE WITHOUT 04/27/2019 MARGARET VEGA, REGINA Eligio Ot M25.551 PAIN IN RIGHT HIP 04/27/2019 MARGARET VEGA, REGINA Eligio Ot M25.552 PAIN IN LEFT HIP 04/27/2019 MARGARET VEGA, REGINA Del Valle Ot Z77. 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 1 ALLERGY STATUS TO OTHER ANTIBIOTIC AGENT 04/27/2019 MARGARET VEGA, REGINA Eligio Ot Z88. 2 ALLERGY STATUS TO SULFONAMIDES STATUS 04/27/2019 MARGARET VEGA, REGINA Eligio Ot Z88. 5 ALLERGY STATUS TO NARCOTIC AGENT STATUS 04/27/2019 MARGARET VEGA, REGINA Eligio Ot Z88. 8 ALLERGY STATUS TO OTH DRUG/MEDS/BIOL SUB 04/27/2019 MARGARET VEGA, REGINA Eligio Ot Z90.710 ACQUIRED ABSENCE OF BOTH CERVIX AND UTER 05/04/2019 ESTELA KAUR Ot M51.24 OTHER INTERVERTEBRAL DISC DISPLACEMENT, 05/04/2019 ESTELA KAUR Ot M50.322 OTHER CERVICAL DISC DEGENERATION AT C5-C 06/05/2019 GLORY LINARES MD Ot K59.01 SLOW TRANSIT CONSTIPATION Procedures Code Description Performed By Per formed On [id number] EX CISION OF STOMACH, PYLORUS, ENDO, DIAG 05/22/2018 Results Test Result Range Complete urinalysis with reflex to cultu re - 05/19/18 17:00 Urine color determination YELLOW NRG Urine clarity determination CLEAR NR G Urine pH measurement by test strip 7 5-9 Specific gravity of urine by test strip 1.005 1.016-1.022 Urine protein assay by test strip, semi-quantitative NEGATIVE NEGATIVE Urine glucose detection by automated test strip NE GATIVE NEGATIVE Erythrocytes detection in urine sediment by light micr oscopy NEGATIVE NEGATIVE Urine ketones detection by automated test strip NE GATIVE NEGATIVE Urine nitrite detection by test strip NEGATIVE NEGATIVE Urine total bilirubin detection by test strip NEGA TIVE NEGATIVE Urine urobilinogen measurement by automated test strip (mass/volume) NORMAL NORMAL Urine leukocyte esterase detection by dipstick NEG ATIVE NEGATIVE Automated urine sediment erythrocyte cou nt by microscopy (number/high power field) RARE NRG Automated urine sediment leukocyte count by microscopy (number/high power field) NONE NRG Bacteria detection in urine sediment by light microsco py NONE NRG Squamous epithelial cells detection in u rine sediment by light microscopy 0-2 NRG Crystals detection in urine sediment by light microsco py NONE NRG Casts detection in urine sediment by light microscopy NONE NRG Mucus detection in urine sediment by light microscopy NEGATIVE NRG Complete urinalysis with reflex to culture NO NRG Methicillin resistant Staphylococcus aur eus (MRSA) screening culture - 05/19/18 17:00 Methicillin resistant Staphylococcus aureus (MRSA) scr eening culture NEG NRG Capillary blood glucose measurement by g lucometer (mass/volume) - 05/19/18 17:08 Capillary blood glucose measurement by glucometer (mas s/volume) 167 mg/dL 70-110 Automated blood complete blood count (he mogram) panel - 05/19/18 17:42 Blood leukocytes automated count (number/volume) 16.2 10*3/uL 4.3-11.0 Blood erythrocytes automated count (number/volume) 4.73 10*6/uL 4.35-5.85 Venous blood hemoglobin measurement (mass/volume) 15.3 g/dL 11.5-16.0 Blood hematocrit (volume fraction) 43 % 35-52 Automated erythrocyte mean corpuscular volume 90 [ foz_us] 80-99 Automated erythrocyte mean corpuscular h emoglobin (mass per erythrocyte) 32 pg 25-34 Automated erythrocyte mean corpuscular h emoglobin concentration measurement (mass/volume) 36 g/dL 32-36 Automated erythrocyte distribution width ratio 12. 8 % 10.0- 14.5 Automated blood platelet count (count/volume) 231 10*3/uL 130-400 Automated blood platelet mean volume measurement 10.0 [foz_us] 7.4-10.4 Whole blood basic metabolic panel - 04/26 09/10 17:42 Serum or plasma sodium measurement (moles/volume) 135 mmol/L 135-145 Serum or plasma potassium measurement (moles/volume) 4.6 mmol/L 3.6-5.0 Serum or plasma chloride measurement (moles/volume) 101 mmol/L 98-107 Carbon dioxide 19 mmol/L 21-32 Serum or plasma anion gap determination (moles/volume) 15 mmol/L 5-14 Serum or plasma urea nitrogen measurement (mass/volume ) 10 mg/dL 7-18 Serum or plasma creatinine measurement (mass/volume) 0.86 mg/dL 0.60-1.30 Serum or plasma urea nitrogen/creatinine mass ratio 12 NRG Serum or plasma creatinine measurement w ith calculation of estimated glomerular filtration rate > NRG Serum or plasma glucose measurement (mass/volume) 176 mg/dL 70-105 Serum or plasma calcium measurement (mass/volume) 9.5 mg/dL 8.5-10.1 Beta-hydroxybutyric acid measurement - 0 05/19/18 17:42 Beta-hydroxybutyric acid measurement 0.86 mmol/L 0.00-0.27 Hemoglobin A1c - 05/19/18 17:42 Blood hemoglobin A1C measurement (mass/volume) 8.9 % 4.0-5.6 MEAN BLOOD GLUCOSE 209 % <=126 Capillary blood glucose measurement by g lucometer (mass/volume) - 05/19/18 18:40 Capillary blood glucose measurement by glucometer (mas s/volume) 243 mg/dL 70-110 Whole blood basic metabolic panel - 04/26 09/10 19:18 Serum or plasma sodium measurement (moles/volume) 133 mmol/L 135-145 Serum or plasma potassium measurement (moles/volume) 3.8 mmol/L 3.6-5.0 Serum or plasma chloride measurement (moles/volume) 103 mmol/L 98-107 Carbon dioxide 21 mmol/L 21-32 Serum or plasma anion gap determination (moles/volume) 9 mmol/L 5-14 Serum or plasma urea nitrogen measurement (mass/volume ) 9 mg/dL 7-18 Serum or plasma creatinine measurement (mass/volume) 0.83 mg/dL 0.60-1.30 Serum or plasma urea nitrogen/creatinine mass ratio 11 NRG Serum or plasma creatinine measurement w ith calculation of estimated glomerular filtration rate > NRG Serum or plasma glucose measurement (mass/volume) 248 mg/dL 70-105 Serum or plasma calcium measurement (mass/volume) 8.8 mg/dL 8.5-10.1 Capillary blood glucose measurement by g lucometer (mass/volume) - 05/19/18 20:03 Capillary blood glucose measurement by glucometer (mas s/volume) 254 mg/dL 70-110 Capillary blood glucose measurement by g lucometer (mass/volume) - 05/19/18 21:05 Capillary blood glucose measurement by glucometer (mas s/volume) 209 mg/dL 70-110 Capillary blood glucose measurement by g lucometer (mass/volume) - 05/19/18 22:04 Capillary blood glucose measurement by glucometer (mas s/volume) 198 mg/dL 70-110 Capillary blood glucose measurement by g lucometer (mass/volume) - 05/19/18 23:08 Capillary blood glucose measurement by glucometer (mas s/volume) 167 mg/dL 70-110 Whole blood basic metabolic panel - 04/26 09/10 23:17 Serum or plasma sodium measurement (moles/volume) 137 mmol/L 135-145 Serum or plasma potassium measurement (moles/volume) 3.3 mmol/L 3.6-5.0 Serum or plasma chloride measurement (moles/volume) 104 mmol/L 98-107 Carbon dioxide 20 mmol/L 21-32 Serum or plasma anion gap determination (moles/volume) 13 mmol/L 5-14 Serum or plasma urea nitrogen measurement (mass/volume ) 7 mg/dL 7-18 Serum or plasma creatinine measurement (mass/volume) 0.78 mg/dL 0.60-1.30 Serum or plasma urea nitrogen/creatinine mass ratio 9 NRG Serum or plasma creatinine measurement w ith calculation of estimated glomerular filtration rate > NRG Serum or plasma glucose measurement (mass/volume) 169 mg/dL 70-105 Serum or plasma calcium measurement (mass/volume) 8.5 mg/dL 8.5-10.1 Capillary blood glucose measurement by g lucometer (mass/volume) - 05/20/18 00:05 Capillary blood glucose measurement by glucometer (mas s/volume) 203 mg/dL 70-110 Capillary blood glucose measurement by g lucometer (mass/volume) - 05/20/18 01:00 Capillary blood glucose measurement by glucometer (mas s/volume) 203 mg/dL 70-110 Capillary blood glucose measurement by g lucometer (mass/volume) - 05/20/18 02:09 Capillary blood glucose measurement by glucometer (mas s/volume) 195 mg/dL 70-110 Capillary blood glucose measurement by g lucometer (mass/volume) - 05/20/18 03:04 Capillary blood glucose measurement by glucometer (mas s/volume) 176 mg/dL 70-110 Complete blood count (CBC) with automate d white blood cell (WBC) differential - 05/20/18 03:20 Blood leukocytes automated count (number/volume) 8.6 10*3/uL 4.3-11.0 Blood erythrocytes automated count (number/volume) 4.42 10*6/uL 4.35-5.85 Venous blood hemoglobin measurement (mass/volume) 14.4 g/dL 11.5-16.0 Blood hematocrit (volume fraction) 40 % 35-52 Automated erythrocyte mean corpuscular volume 91 [ foz_us] 80-99 Automated erythrocyte mean corpuscular h emoglobin (mass per erythrocyte) 33 pg 25-34 Automated erythrocyte mean corpuscular h emoglobin concentration measurement (mass/volume) 36 g/dL 32-36 Automated erythrocyte distribution width ratio 12. 9 % 10.0- 14.5 Automated blood platelet count (count/volume) 199 10*3/uL 130-400 Automated blood platelet mean volume measurement 10.1 [foz_us] 7.4-10.4 Automated blood neutrophils/100 leukocytes 58 % 42-75 Automated blood lymphocytes/100 leukocytes 30 % 12-44 Blood monocytes/100 leukocytes 11 % 0-12 Automated blood eosinophils/100 leukocytes 1 % 0-10 Automated blood basophils/100 leukocytes 0 % 0-10 Blood neutrophils automated count (number/volume) 5.0 10*3 1.8-7.8 Blood lymphocytes automated count (number/volume) 2.6 10*3 1.0-4.0 Blood monocytes automated count (number/volume) 1. 0 10*3 0.0-1.0 Automated eosinophil count 0.1 10*3/uL 0 .0-0.3 Automated blood basophil count (count/volume) 0.0 10*3/uL 0.0-0.1 Whole blood basic metabolic panel - 04/26 10/11 03:20 Serum or plasma sodium measurement (moles/volume) 139 mmol/L 135-145 Serum or plasma potassium measurement (moles/volume) 3.6 mmol/L 3.6-5.0 Serum or plasma chloride measurement (moles/volume) 107 mmol/L 98-107 Carbon dioxide 22 mmol/L 21-32 Serum or plasma anion gap determination (moles/volume) 10 mmol/L 5-14 Serum or plasma urea nitrogen measurement (mass/volume ) 5 mg/dL 7-18 Serum or plasma creatinine measurement (mass/volume) 0.79 mg/dL 0.60-1.30 Serum or plasma urea nitrogen/creatinine mass ratio 6 NRG Serum or plasma creatinine measurement w ith calculation of estimated glomerular filtration rate > NRG Serum or plasma glucose measurement (mass/volume) 153 mg/dL 70-105 Serum or plasma calcium measurement (mass/volume) 8.4 mg/dL 8.5-10.1 Serum or plasma phosphate measurement (m ass/volume) - 05/20/18 03:20 Serum or plasma phosphate measurement (mass/volume) 3.0 mg/dL 2.3-4.7 Magnesium - 05/20/18 03:20 Magnesium 1.7 mg/dL 1.8-2.4 Beta-hydroxybutyric acid measurement - 0 05/20/18 03:20 Beta-hydroxybutyric acid measurement 0.05 mmol/L 0.00-0.27 Capillary blood glucose measurement by g lucometer (mass/volume) - 05/20/18 04:07 Capillary blood glucose measurement by glucometer (mas s/volume) 154 mg/dL 70-110 Capillary blood glucose measurement by g lucometer (mass/volume) - 05/20/18 05:37 Capillary blood glucose measurement by glucometer (mas s/volume) 126 mg/dL 70-110 Capillary blood glucose measurement by g lucometer (mass/volume) - 05/20/18 07:19 Capillary blood glucose measurement by glucometer (mas s/volume) 226 mg/dL 70-110 Serum or plasma amylase measurement (enz ymatic activity/volume) - 05/20/18 07:30 Serum or plasma amylase measurement (enzymatic activit y/volume) 70 U/L 25-125 Lipase - 05/20/18 07:30 Lipase 70 U/L 8-78 Capillary blood glucose measurement by g lucometer (mass/volume) - 05/20/18 11:39 Capillary blood glucose measurement by glucometer (mas s/volume) 202 mg/dL 70-110 Capillary blood glucose measurement by g lucometer (mass/volume) - 05/20/18 14:59 Capillary blood glucose measurement by glucometer (mas s/volume) 202 mg/dL 70-110 Capillary blood glucose measurement by g lucometer (mass/volume) - 05/20/18 19:20 Capillary blood glucose measurement by glucometer (mas s/volume) 121 mg/dL 70-110 Complete blood count (CBC) with automate d white blood cell (WBC) differential - 05/21/18 04:40 Blood leukocytes automated count (number/volume) 7.7 10*3/uL 4.3-11.0 Blood erythrocytes automated count (number/volume) 4.41 10*6/uL 4.35-5.85 Venous blood hemoglobin measurement (mass/volume) 14.2 g/dL 11.5-16.0 Blood hematocrit (volume fraction) 41 % 35-52 Automated erythrocyte mean corpuscular volume 92 [ foz_us] 80-99 Automated erythrocyte mean corpuscular h emoglobin (mass per erythrocyte) 32 pg 25-34 Automated erythrocyte mean corpuscular h emoglobin concentration measurement (mass/volume) 35 g/dL 32-36 Automated erythrocyte distribution width ratio 12. 8 % 10.0- 14.5 Automated blood platelet count (count/volume) 180 10*3/uL 130-400 Automated blood platelet mean volume measurement 10.3 [foz_us] 7.4-10.4 Automated blood neutrophils/100 leukocytes 62 % 42-75 Automated blood lymphocytes/100 leukocytes 25 % 12-44 Blood monocytes/100 leukocytes 11 % 0-12 Automated blood eosinophils/100 leukocytes 1 % 0-10 Automated blood basophils/100 leukocytes 0 % 0-10 Blood neutrophils automated count (number/volume) 4.8 10*3 1.8-7.8 Blood lymphocytes automated count (number/volume) 1.9 10*3 1.0-4.0 Blood monocytes automated count (number/volume) 0. 9 10*3 0.0-1.0 Automated eosinophil count 0.1 10*3/uL 0 .0-0.3 Automated blood basophil count (count/volume) 0.0 10*3/uL 0.0-0.1 Whole blood basic metabolic panel - 04/26 11/10 04:40 Serum or plasma sodium measurement (moles/volume) 137 mmol/L 135-145 Serum or plasma potassium measurement (moles/volume) 3.7 mmol/L 3.6-5.0 Serum or plasma chloride measurement (moles/volume) 107 mmol/L 98-107 Carbon dioxide 19 mmol/L 21-32 Serum or plasma anion gap determination (moles/volume) 11 mmol/L 5-14 Serum or plasma urea nitrogen measurement (mass/volume ) 3 mg/dL 7-18 Serum or plasma creatinine measurement (mass/volume) 0.74 mg/dL 0.60-1.30 Serum or plasma urea nitrogen/creatinine mass ratio 4 NRG Serum or plasma creatinine measurement w ith calculation of estimated glomerular filtration rate > NRG Serum or plasma glucose measurement (mass/volume) 193 mg/dL 70-105 Serum or plasma calcium measurement (mass/volume) 8.1 mg/dL 8.5-10.1 Serum or plasma phosphate measurement (m ass/volume) - 05/21/18 04:40 Serum or plasma phosphate measurement (mass/volume) 2.8 mg/dL 2.3-4.7 Magnesium - 05/21/18 04:40 Magnesium 1.6 mg/dL 1.8-2.4 Beta-hydroxybutyric acid measurement - 0 05/21/18 04:40 Beta-hydroxybutyric acid measurement 0.51 mmol/L 0.00-0.27 Lipase - 05/21/18 04:40 Lipase 36 U/L 8-78 Capillary blood glucose measurement by g lucometer (mass/volume) - 05/21/18 06:09 Capillary blood glucose measurement by glucometer (mas s/volume) 190 mg/dL 70-110 Capillary blood glucose measurement by g lucometer (mass/volume) - 05/21/18 09:39 Capillary blood glucose measurement by glucometer (mas s/volume) 209 mg/dL 70-110 Capillary blood glucose measurement by g lucometer (mass/volume) - 05/21/18 13:38 Capillary blood glucose measurement by glucometer (mas s/volume) 134 mg/dL 70-110 Capillary blood glucose measurement by g lucometer (mass/volume) - 05/21/18 19:15 Capillary blood glucose measurement by glucometer (mas s/volume) 176 mg/dL 70-110 Capillary blood glucose measurement by g lucometer (mass/volume) - 05/22/18 05:12 Capillary blood glucose measurement by glucometer (mas s/volume) 168 mg/dL 70-110 Beta-hydroxybutyric acid measurement - 0 05/22/18 05:29 Beta-hydroxybutyric acid measurement 0.50 mmol/L 0.00-0.27 Capillary blood glucose measurement by g lucometer (mass/volume) - 05/22/18 08:57 Capillary blood glucose measurement by glucometer (mas s/volume) 233 mg/dL 70-110 Capillary blood glucose measurement by g lucometer (mass/volume) - 05/22/18 12:49 Capillary blood glucose measurement by glucometer (mas s/volume) 124 mg/dL 70-110 Capillary blood glucose measurement by g lucometer (mass/volume) - 05/22/18 17:07 Capillary blood glucose measurement by glucometer (mas s/volume) 195 mg/dL 70-110 Capillary blood glucose measurement by g lucometer (mass/volume) - 05/22/18 20:14 Capillary blood glucose measurement by glucometer (mas s/volume) 147 mg/dL 70-110 Capillary blood glucose measurement by g lucometer (mass/volume) - 05/23/18 05:28 Capillary blood glucose measurement by glucometer (mas s/volume) 148 mg/dL 70-110 Capillary blood glucose measurement by g lucometer (mass/volume) - 05/23/18 08:33 Capillary blood glucose measurement by glucometer (mas s/volume) 199 mg/dL 70-110 LIPID PANEL - 07/20/18 10:12 CHOLESTEROL, TOTAL 124 mg/dL <200 HDL CHOLESTEROL 34 mg/dL >50 TRIGLYCERIDES 114 mg/dL <150 LDL-CHOLESTEROL 70 mg/dL (calc) NRG CHOL/HDLC RATIO 3.6 (calc) <5.0 NON HDL CHOLESTEROL 90 mg/dL (calc) <130 CMP - 07/20/18 10:12 GLUCOSE 176 mg/dL 65-99 UREA NITROGEN (BUN) 9 mg/dL 7-25 CREATININE 0.79 mg/dL 0.50-1.10 eGFR NON-AFR. KOSOVAN 92 mL/min/1.73m2 > OR = 60 eGFR 106 mL/min/1.73m2 > OR = 60 BUN/CREATININE RATIO NOT APPLICABLE (calc) 6-22 SODIUM 141 mmol/L 135-146 POTASSIUM 4.1 mmol/L 3.5-5.3 CHLORIDE 107 mmol/L 98-110 CARBON DIOXIDE 20 mmol/L 20-32 CALCIUM 9.3 mg/dL 8.6-10.2 PROTEIN, TOTAL 6.8 g/dL 6.1-8.1 ALBUMIN 4.2 g/dL 3.6-5.1 GLOBULIN 2.6 g/dL (calc) 1.9-3.7 ALBUMIN/GLOBULIN RATIO 1.6 (calc) 1.0-2. 5 BILIRUBIN, TOTAL 0.3 mg/dL 0.2-1.2 ALKALINE PHOSPHATASE 58 U/L 33-115 AST 23 U/L 10-30 ALT 19 U/L 6-29 CBC - 07/20/18 10:12 WHITE BLOOD CELL COUNT 12.4 Thousand/uL 3.8-10.8 RED BLOOD CELL COUNT 4.63 Million/uL 3.8 0-5.10 HEMOGLOBIN 15.1 g/dL 11.7-15.5 HEMATOCRIT 43.7 % 35.0-45.0 MCV 94.4 fL 80.0-100.0 MCH 32.6 pg 27.0-33.0 MCHC 34.6 g/dL 32.0-36.0 RDW 13.1 % 11.0-15.0 PLATELET COUNT 242 Thousand/uL 140-400 MPV 11.0 fL 7.5-12.5 ABSOLUTE NEUTROPHILS 9684 cells/uL 1500- 7800 ABSOLUTE LYMPHOCYTES 1934 cells/uL 850-3 900 ABSOLUTE MONOCYTES 620 cells/uL 200-950 ABSOLUTE EOSINOPHILS 112 cells/uL 15-500 ABSOLUTE BASOPHILS 50 cells/uL 0-200 NEUTROPHILS 78.1 % NRG LYMPHOCYTES 15.6 % NRG MONOCYTES 5.0 % NRG EOSINOPHILS 0.9 % NRG BASOPHILS 0.4 % NRG TSH - 07/20/18 10:12 TSH 2.54 mIU/L NRG Capillary blood glucose measurement by g lucometer (mass/volume) - 07/21/18 12:09 Capillary blood glucose measurement by glucometer (mas s/volume) 251 mg/dL 70-110 Complete urinalysis with reflex to cultu re - 07/21/18 12:17 Urine color determination YELLOW NRG Urine clarity determination SL CLOUDY N RG Urine pH measurement by test strip 6.0 5-9 Specific gravity of urine by test strip 1.020 1.016-1.022 Urine protein assay by test strip, semi-quantitative TRACE NEGATIVE Urine glucose detection by automated test strip 2+ NEGATIVE Erythrocytes detection in urine sediment by light micr oscopy NEGATIVE NEGATIVE Urine ketones detection by automated test strip TR ELGIN NEGATIVE Urine nitrite detection by test strip NEGATIVE NEGATIVE Urine total bilirubin detection by test strip NEGA TIVE NEGATIVE Urine urobilinogen measurement by automated test strip (mass/volume) 0.2 mg/dL NORMAL Urine leukocyte esterase detection by dipstick NEG ATIVE NEGATIVE Automated urine sediment erythrocyte cou nt by microscopy (number/high power field) NONE NRG Automated urine sediment leukocyte count by microscopy (number/high power field) NONE NRG Bacteria detection in urine sediment by light microsco py NONE NRG Squamous epithelial cells detection in u rine sediment by light microscopy 10-25 NRG Crystals detection in urine sediment by light microsco py NONE NRG Casts detection in urine sediment by light microscopy NONE NRG Mucus detection in urine sediment by light microscopy NEGATIVE NRG Complete urinalysis with reflex to culture NO NRG Urine beta human chorionic gonadotropin (hCG) measurement - 07/21/18 12:17 Urine beta human chorionic gonadotropin (hCG) measurem ent NEGATIVE NEGATIVE Automated blood complete blood count (he mogram) panel - 07/21/18 12:37 Blood leukocytes automated count (number/volume) 13.4 10*3/uL 4.3-11.0 Blood erythrocytes automated count (number/volume) 4.46 10*6/uL 4.35-5.85 Venous blood hemoglobin measurement (mass/volume) 14.5 g/dL 11.5-16.0 Blood hematocrit (volume fraction) 41 % 35-52 Automated erythrocyte mean corpuscular volume 92 [ foz_us] 80-99 Automated erythrocyte mean corpuscular h emoglobin (mass per erythrocyte) 33 pg 25-34 Automated erythrocyte mean corpuscular h emoglobin concentration measurement (mass/volume) 35 g/dL 32-36 Automated erythrocyte distribution width ratio 13. 1 % 10.0- 14.5 Automated blood platelet count (count/volume) 261 10*3/uL 130-400 Automated blood platelet mean volume measurement 10.9 [foz_us] 7.4-10.4 Comprehensive metabolic panel - 07/21/18 12:37 Serum or plasma sodium measurement (moles/volume) 138 mmol/L 135-145 Serum or plasma potassium measurement (moles/volume) 4.4 mmol/L 3.6-5.0 Serum or plasma chloride measurement (moles/volume) 99 mmol/L 98-107 Carbon dioxide 21 mmol/L 21-32 Serum or plasma anion gap determination (moles/volume) 18 mmol/L 5-14 Serum or plasma urea nitrogen measurement (mass/volume ) 10 mg/dL 7-18 Serum or plasma creatinine measurement (mass/volume) 0.65 mg/dL 0.60-1.30 Serum or plasma urea nitrogen/creatinine mass ratio 15 NRG Serum or plasma creatinine measurement w ith calculation of estimated glomerular filtration rate > NRG Serum or plasma glucose measurement (mass/volume) 240 mg/dL 70-105 Serum or plasma calcium measurement (mass/volume) 9.7 mg/dL 8.5-10.1 Serum or plasma total bilirubin measurement (mass/volu me) 0.4 mg/dL 0.1-1.0 Serum or plasma alkaline phosphatase bridger surement (enzymatic activity/volume) 64 U/L 40-136 Serum or plasma aspartate aminotransfera se measurement (enzymatic activity/volume) 32 U/L 5-34 Serum or plasma alanine aminotransferase measurement (enzymatic activity/volume) 19 U/L 0-55 Serum or plasma protein measurement (mass/volume) 7.7 g/dL 6.4-8.2 Serum or plasma albumin measurement (mass/volume) 4.1 g/dL 3.2-4.5 CALCIUM CORRECTED 9.6 mg/dL 8.5-10.1 TROPONIN T - 07/21/18 12:37 TROPONIN T < 6 <=10 Lipase - 07/21/18 12:37 Lipase 154 U/L 8-78 Complete blood count (CBC) with automate d white blood cell (WBC) differential - 07/24/18 09:35 Blood leukocytes automated count (number/volume) 13.7 10*3/uL 4.3-11.0 Blood erythrocytes automated count (number/volume) 4.53 10*6/uL 4.35-5.85 Venous blood hemoglobin measurement (mass/volume) 14.8 g/dL 11.5-16.0 Blood hematocrit (volume fraction) 43 % 35-52 Automated erythrocyte mean corpuscular volume 92 [ foz_us] 80-99 Automated erythrocyte mean corpuscular h emoglobin (mass per erythrocyte) 33 pg 25-34 Automated erythrocyte mean corpuscular h emoglobin concentration measurement (mass/volume) 36 g/dL 32-36 Automated erythrocyte distribution width ratio 13. 0 % 10.0- 14.5 Automated blood platelet count (count/volume) 237 10*3/uL 130-400 Automated blood platelet mean volume measurement 10.6 [foz_us] 7.4-10.4 Automated blood neutrophils/100 leukocytes 81 % 42-75 Automated blood lymphocytes/100 leukocytes 11 % 12-44 Blood monocytes/100 leukocytes 6 % 0-12 Automated blood eosinophils/100 leukocytes 1 % 0-10 Automated blood basophils/100 leukocytes 0 % 0-10 Blood neutrophils automated count (number/volume) 11.1 10*3 1.8-7.8 Blood lymphocytes automated count (number/volume) 1.6 10*3 1.0-4.0 Blood monocytes automated count (number/volume) 0. 8 10*3 0.0-1.0 Automated eosinophil count 0.1 10*3/uL 0 .0-0.3 Automated blood basophil count (count/volume) 0.1 10*3/uL 0.0-0.1 Comprehensive metabolic panel - 07/24/18 09:35 Serum or plasma sodium measurement (moles/volume) 136 mmol/L 135-145 Serum or plasma potassium measurement (moles/volume) 4.6 mmol/L 3.6-5.0 Serum or plasma chloride measurement (moles/volume) 99 mmol/L 98-107 Carbon dioxide 24 mmol/L 21-32 Serum or plasma anion gap determination (moles/volume) 13 mmol/L 5-14 Serum or plasma urea nitrogen measurement (mass/volume ) 8 mg/dL 7-18 Serum or plasma creatinine measurement (mass/volume) 0.64 mg/dL 0.60-1.30 Serum or plasma urea nitrogen/creatinine mass ratio 13 NRG Serum or plasma creatinine measurement w ith calculation of estimated glomerular filtration rate > NRG Serum or plasma glucose measurement (mass/volume) 267 mg/dL 70-105 Serum or plasma calcium measurement (mass/volume) 9.5 mg/dL 8.5-10.1 Serum or plasma total bilirubin measurement (mass/volu me) 0.4 mg/dL 0.1-1.0 Serum or plasma alkaline phosphatase bridger surement (enzymatic activity/volume) 62 U/L 40-136 Serum or plasma aspartate aminotransfera se measurement (enzymatic activity/volume) 26 U/L 5-34 Serum or plasma alanine aminotransferase measurement (enzymatic activity/volume) 17 U/L 0-55 Serum or plasma protein measurement (mass/volume) 7.4 g/dL 6.4-8.2 Serum or plasma albumin measurement (mass/volume) 4.0 g/dL 3.2-4.5 Lipase - 07/24/18 09:35 Lipase 184 U/L 8-78 Complete blood count (CBC) with automate d white blood cell (WBC) differential - 07/29/18 08:53 Blood leukocytes automated count (number/volume) 13.3 10*3/uL 4.3-11.0 Blood erythrocytes automated count (number/volume) 4.38 10*6/uL 4.35-5.85 Venous blood hemoglobin measurement (mass/volume) 14.3 g/dL 11.5-16.0 Blood hematocrit (volume fraction) 40 % 35-52 Automated erythrocyte mean corpuscular volume 92 [ foz_us] 80-99 Automated erythrocyte mean corpuscular h emoglobin (mass per erythrocyte) 33 pg 25-34 Automated erythrocyte mean corpuscular h emoglobin concentration measurement (mass/volume) 36 g/dL 32-36 Automated erythrocyte distribution width ratio 13. 0 % 10.0- 14.5 Automated blood platelet count (count/volume) 246 10*3/uL 130-400 Automated blood platelet mean volume measurement 10.0 [foz_us] 7.4-10.4 Automated blood neutrophils/100 leukocytes 83 % 42-75 Automated blood lymphocytes/100 leukocytes 10 % 12-44 Blood monocytes/100 leukocytes 6 % 0-12 Automated blood eosinophils/100 leukocytes 1 % 0-10 Automated blood basophils/100 leukocytes 0 % 0-10 Blood neutrophils automated count (number/volume) 11.0 10*3 1.8-7.8 Blood lymphocytes automated count (number/volume) 1.3 10*3 1.0-4.0 Blood monocytes automated count (number/volume) 0. 8 10*3 0.0-1.0 Automated eosinophil count 0.1 10*3/uL 0 .0-0.3 Automated blood basophil count (count/volume) 0.0 10*3/uL 0.0-0.1 Comprehensive metabolic panel - 07/29/18 08:53 Serum or plasma sodium measurement (moles/volume) 138 mmol/L 135-145 Serum or plasma potassium measurement (moles/volume) 3.8 mmol/L 3.6-5.0 Serum or plasma chloride measurement (moles/volume) 101 mmol/L 98-107 Carbon dioxide 17 mmol/L 21-32 Serum or plasma anion gap determination (moles/volume) 20 mmol/L 5-14 Serum or plasma urea nitrogen measurement (mass/volume ) 11 mg/dL 7-18 Serum or plasma creatinine measurement (mass/volume) 0.73 mg/dL 0.60-1.30 Serum or plasma urea nitrogen/creatinine mass ratio 15 NRG Serum or plasma creatinine measurement w ith calculation of estimated glomerular filtration rate > NRG Serum or plasma glucose measurement (mass/volume) 284 mg/dL 70-105 Serum or plasma calcium measurement (mass/volume) 9.0 mg/dL 8.5-10.1 Serum or plasma total bilirubin measurement (mass/volu me) 0.5 mg/dL 0.1-1.0 Serum or plasma alkaline phosphatase bridger surement (enzymatic activity/volume) 49 U/L 40-136 Serum or plasma aspartate aminotransfera se measurement (enzymatic activity/volume) 100 U/L 5-34 Serum or plasma alanine aminotransferase measurement (enzymatic activity/volume) 28 U/L 0-55 Serum or plasma protein measurement (mass/volume) 7.0 g/dL 6.4-8.2 Serum or plasma albumin measurement (mass/volume) 4.0 g/dL 3.2-4.5 CALCIUM CORRECTED 9.0 mg/dL 8.5-10.1 Lipase - 07/29/18 08:53 Lipase 42 U/L 8-78 Capillary blood glucose measurement by g lucometer (mass/volume) - 07/29/18 08:58 Capillary blood glucose measurement by glucometer (mas s/volume) 271 mg/dL 70-110 BETA-HYDROXYBUTYRATE - 08/07/18 12:00 BETA-HYDROXYBUTYRATE 0.09 mmol/L NRG Capillary blood glucose measurement by g lucometer (mass/volume) - 08/09/18 14:20 Capillary blood glucose measurement by glucometer (mas s/volume) 154 mg/dL 70-110 Complete urinalysis with reflex to cultu re - 08/09/18 14:44 Urine color determination YELLOW NRG Urine clarity determination SLT CLOUDY NRG Urine pH measurement by test strip 6.5 5-9 Specific gravity of urine by test strip < 1.016-1.022 Urine protein assay by test strip, semi-quantitative NEGATIVE NEGATIVE Urine glucose detection by automated test strip NE GATIVE NEGATIVE Erythrocytes detection in urine sediment by light micr oscopy NEGATIVE NEGATIVE Urine ketones detection by automated test strip NE GATIVE NEGATIVE Urine nitrite detection by test strip NEGATIVE NEGATIVE Urine total bilirubin detection by test strip NEGA TIVE NEGATIVE Urine urobilinogen measurement by automated test strip (mass/volume) 0.2 mg/dL NORMAL Urine leukocyte esterase detection by dipstick NEG ATIVE NEGATIVE Automated urine sediment erythrocyte cou nt by microscopy (number/high power field) NONE NRG Automated urine sediment leukocyte count by microscopy (number/high power field) [HPF] NRG Bacteria detection in urine sediment by light microsco py TRACE NRG Squamous epithelial cells detection in u rine sediment by light microscopy 10-25 NRG Crystals detection in urine sediment by light microsco py NONE NRG Casts detection in urine sediment by light microscopy NONE NRG Mucus detection in urine sediment by light microscopy NONE NRG Complete urinalysis with reflex to culture NO NRG Comprehensive metabolic panel - 08/09/18 14:44 Serum or plasma sodium measurement (moles/volume) 140 mmol/L 135-145 Serum or plasma potassium measurement (moles/volume) 3.9 mmol/L 3.6-5.0 Serum or plasma chloride measurement (moles/volume) 103 mmol/L 98-107 Carbon dioxide 22 mmol/L 21-32 Serum or plasma anion gap determination (moles/volume) 15 mmol/L 5-14 Serum or plasma urea nitrogen measurement (mass/volume ) 8 mg/dL 7-18 Serum or plasma creatinine measurement (mass/volume) 0.75 mg/dL 0.60-1.30 Serum or plasma urea nitrogen/creatinine mass ratio 11 NRG Serum or plasma creatinine measurement w ith calculation of estimated glomerular filtration rate > NRG Serum or plasma glucose measurement (mass/volume) 163 mg/dL 70-105 Serum or plasma calcium measurement (mass/volume) 10.1 mg/dL 8.5-10.1 Serum or plasma total bilirubin measurement (mass/volu me) 0.7 mg/dL 0.1-1.0 Serum or plasma alkaline phosphatase bridger surement (enzymatic activity/volume) 62 U/L 40-136 Serum or plasma aspartate aminotransfera se measurement (enzymatic activity/volume) 29 U/L 5-34 Serum or plasma alanine aminotransferase measurement (enzymatic activity/volume) 22 U/L 0-55 Serum or plasma protein measurement (mass/volume) 7.8 g/dL 6.4-8.2 Serum or plasma albumin measurement (mass/volume) 4.4 g/dL 3.2-4.5 CALCIUM CORRECTED 9.8 mg/dL 8.5-10.1 Lipase - 08/09/18 14:44 Lipase 82 U/L 8-78 Complete blood count (CBC) with automate d white blood cell (WBC) differential - 08/09/18 14:50 Blood leukocytes automated count (number/volume) 11.3 10*3/uL 4.3-11.0 Blood erythrocytes automated count (number/volume) 4.93 10*6/uL 4.35-5.85 Venous blood hemoglobin measurement (mass/volume) 15.9 g/dL 11.5-16.0 Blood hematocrit (volume fraction) 45 % 35-52 Automated erythrocyte mean corpuscular volume 91 [ foz_us] 80-99 Automated erythrocyte mean corpuscular h emoglobin (mass per erythrocyte) 32 pg 25-34 Automated erythrocyte mean corpuscular h emoglobin concentration measurement (mass/volume) 35 g/dL 32-36 Automated erythrocyte distribution width ratio 13. 0 % 10.0- 14.5 Automated blood platelet count (count/volume) 244 10*3/uL 130-400 Automated blood platelet mean volume measurement 10.3 [foz_us] 7.4-10.4 Automated blood neutrophils/100 leukocytes 72 % 42-75 Automated blood lymphocytes/100 leukocytes 20 % 12-44 Blood monocytes/100 leukocytes 6 % 0-12 Automated blood eosinophils/100 leukocytes 1 % 0-10 Automated blood basophils/100 leukocytes 0 % 0-10 Blood neutrophils automated count (number/volume) 8.2 10*3 1.8-7.8 Blood lymphocytes automated count (number/volume) 2.3 10*3 1.0-4.0 Blood monocytes automated count (number/volume) 0. 7 10*3 0.0-1.0 Automated eosinophil count 0.1 10*3/uL 0 .0-0.3 Automated blood basophil count (count/volume) 0.0 10*3/uL 0.0-0.1 Serum or plasma choriogonadotropin (preg nicholas test) detection - 08/09/18 14:50 Serum or plasma choriogonadotropin ( test) de tection NEGATIVE NEGATIVE Urine drug screening test - 08/09/18 14: 57 Urine phencyclidine detection by screening method NEGATIVE NEGATIVE Urine benzodiazepines detection by screening method NEGATIVE NEGATIVE Urine cocaine detection NEGATIVE NEGATI VE Urine amphetamines detection by screening method N EGATIVE NEGATIVE Urine methamphetamine detection by screening method NEGATIVE NEGATIVE Urine cannabinoids detection by screening method P OSITIVE NEGATIVE Urine opiates detection by screening method NEGATI VE NEGATIVE Urine barbiturates detection NEGATIVE N EGATIVE Screening urine tricyclic antidepressants detection NEGATIVE NEGATIVE Urine methadone detection by screening method NEGA TIVE NEGATIVE Urine oxycodone detection NEGATIVE NEGA TIVE Urine propoxyphene detection NEGATIVE N EGATIVE UA W/ MICROSCOPY - 09/07/18 10:45 COLOR YELLOW YELLOW APPEARANCE CLOUDY CLEAR SPECIFIC GRAVITY 1.019 1.001-1.035 PH 6.0 5.0-8.0 GLUCOSE NEGATIVE NEGATIVE BILIRUBIN NEGATIVE NEGATIVE KETONES NEGATIVE NEGATIVE OCCULT BLOOD NEGATIVE NEGATIVE PROTEIN NEGATIVE NEGATIVE NITRITE NEGATIVE NEGATIVE LEUKOCYTE ESTERASE NEGATIVE NEGATIVE WBC 0-5 /HPF < OR = 5 RBC 0-2 /HPF < OR = 2 SQUAMOUS EPITHELIAL CELLS 6-10 /HPF < OR = 5 BACTERIA FEW /HPF NONE SEEN HYALINE CAST NONE SEEN /LPF NONE SEEN COMMENTS FEW MUCOUS THREADS NRG CALCIUM OXALATE CRYSTALS FEW /HPF NONE OR FEW Capillary blood glucose measurement by g lucometer (mass/volume) - 09/22/18 16:01 Capillary blood glucose measurement by glucometer (mas s/volume) 101 mg/dL 70-110 Blood CBC with ordered manual differenti al panel - 09/22/18 16:45 Blood leukocytes automated count (number/volume) 10.0 10*3/uL 4.3-11.0 Blood erythrocytes automated count (number/volume) 4.16 10*6/uL 4.35-5.85 Venous blood hemoglobin measurement (mass/volume) 13.7 g/dL 11.5-16.0 Blood hematocrit (volume fraction) 39 % 35-52 Automated erythrocyte mean corpuscular volume 94 [ foz_us] 80-99 Automated erythrocyte mean corpuscular h emoglobin (mass per erythrocyte) 33 pg 25-34 Automated erythrocyte mean corpuscular h emoglobin concentration measurement (mass/volume) 35 g/dL 32-36 Automated erythrocyte distribution width ratio 13. 0 % 10.0- 14.5 Automated blood platelet count (count/volume) 201 10*3/uL 130-400 Automated blood platelet mean volume measurement 10.5 [foz_us] 7.4-10.4 Automated blood neutrophils/100 leukocytes 72 % 42-75 Automated blood lymphocytes/100 leukocytes 19 % 12-44 Blood monocytes/100 leukocytes 1 % NRG Automated blood eosinophils/100 leukocytes 1 % 0-10 Automated blood basophils/100 leukocytes 0 % 0-10 Blood neutrophils automated count (number/volume) 7.2 10*3 1.8-7.8 Blood lymphocytes automated count (number/volume) 1.9 10*3 1.0-4.0 Blood monocytes automated count (number/volume) 0. 8 10*3 0.0-1.0 Automated eosinophil count 0.1 10*3/uL 0 .0-0.3 Automated blood basophil count (count/volume) 0.0 10*3/uL 0.0-0.1 Manual blood segmented neutrophils/100 leukocytes 74 % NRG Blood band neutrophils/100 leukocytes 0 % NRG Manual blood lymphocytes/100 leukocytes 25 % NRG Manual eosinophils/100 leukocytes in nose 0 % NRG Manual blood basophils/100 leukocytes 0 % NRG Complete urinalysis with reflex to cultu re - 09/22/18 16:45 Urine color determination YELLOW NRG Urine clarity determination SLT CLOUDY NRG Urine pH measurement by test strip 6.0 5-9 Specific gravity of urine by test strip 1.025 1.016-1.022 Urine protein assay by test strip, semi-quantitative 2+ NEGATIVE Urine glucose detection by automated test strip NE GATIVE NEGATIVE Erythrocytes detection in urine sediment by light micr oscopy NEGATIVE NEGATIVE Urine ketones detection by automated test strip TR ELGIN NEGATIVE Urine nitrite detection by test strip NEGATIVE NEGATIVE Urine total bilirubin detection by test strip 1+ NEGATIVE Urine urobilinogen measurement by automated test strip (mass/volume) 0.2 mg/dL NORMAL Urine leukocyte esterase detection by dipstick NEG ATIVE NEGATIVE Automated urine sediment erythrocyte cou nt by microscopy (number/high power field) [HPF] NRG Automated urine sediment leukocyte count by microscopy (number/high power field) [HPF] NRG Bacteria detection in urine sediment by light microsco py FEW NRG Squamous epithelial cells detection in u rine sediment by light microscopy 5-10 NRG Crystals detection in urine sediment by light microsco py NONE NRG Casts detection in urine sediment by light microscopy NONE NRG Mucus detection in urine sediment by light microscopy LARGE NRG Complete urinalysis with reflex to culture NO NRG Comprehensive metabolic panel - 09/22/18 16:45 Serum or plasma sodium measurement (moles/volume) 141 mmol/L 135-145 Serum or plasma potassium measurement (moles/volume) 3.5 mmol/L 3.6-5.0 Serum or plasma chloride measurement (moles/volume) 104 mmol/L 98-107 Carbon dioxide 28 mmol/L 21-32 Serum or plasma anion gap determination (moles/volume) 9 mmol/L 5-14 Serum or plasma urea nitrogen measurement (mass/volume ) 10 mg/dL 7-18 Serum or plasma creatinine measurement (mass/volume) 1.01 mg/dL 0.60-1.30 Serum or plasma urea nitrogen/creatinine mass ratio 10 NRG Serum or plasma creatinine measurement w ith calculation of estimated glomerular filtration rate 60 NRG Serum or plasma glucose measurement (mass/volume) 102 mg/dL 70-105 Serum or plasma calcium measurement (mass/volume) 9.7 mg/dL 8.5-10.1 Serum or plasma total bilirubin measurement (mass/volu me) 0.4 mg/dL 0.1-1.0 Serum or plasma alkaline phosphatase bridger surement (enzymatic activity/volume) 54 U/L 40-136 Serum or plasma aspartate aminotransfera se measurement (enzymatic activity/volume) 23 U/L 5-34 Serum or plasma alanine aminotransferase measurement (enzymatic activity/volume) 11 U/L 0-55 Serum or plasma protein measurement (mass/volume) 7.2 g/dL 6.4-8.2 Serum or plasma albumin measurement (mass/volume) 4.2 g/dL 3.2-4.5 CALCIUM CORRECTED 9.5 mg/dL 8.5-10.1 Lipase - 09/22/18 16:45 Lipase 36 U/L 8-78 Complete blood count (CBC) with automate d white blood cell (WBC) differential - 09/28/18 09:00 Blood leukocytes automated count (number/volume) 8.1 10*3/uL 4.3-11.0 Blood erythrocytes automated count (number/volume) 4.41 10*6/uL 4.35-5.85 Venous blood hemoglobin measurement (mass/volume) 14.5 g/dL 11.5-16.0 Blood hematocrit (volume fraction) 42 % 35-52 Automated erythrocyte mean corpuscular volume 95 [ foz_us] 80-99 Automated erythrocyte mean corpuscular h emoglobin (mass per erythrocyte) 33 pg 25-34 Automated erythrocyte mean corpuscular h emoglobin concentration measurement (mass/volume) 35 g/dL 32-36 Automated erythrocyte distribution width ratio 13. 0 % 10.0- 14.5 Automated blood platelet count (count/volume) 197 10*3/uL 130-400 Automated blood platelet mean volume measurement 10.6 [foz_us] 7.4-10.4 Automated blood neutrophils/100 leukocytes 73 % 42-75 Automated blood lymphocytes/100 leukocytes 19 % 12-44 Blood monocytes/100 leukocytes 7 % 0-12 Automated blood eosinophils/100 leukocytes 1 % 0-10 Automated blood basophils/100 leukocytes 0 % 0-10 Blood neutrophils automated count (number/volume) 5.9 10*3 1.8-7.8 Blood lymphocytes automated count (number/volume) 1.5 10*3 1.0-4.0 Blood monocytes automated count (number/volume) 0. 5 10*3 0.0-1.0 Automated eosinophil count 0.1 10*3/uL 0 .0-0.3 Automated blood basophil count (count/volume) 0.0 10*3/uL 0.0-0.1 Serum or plasma choriogonadotropin (preg nicholas test) detection - 09/28/18 09:00 Serum or plasma choriogonadotropin ( test) de tection NEGATIVE NEGATIVE Comprehensive metabolic panel - 09/28/18 09:00 Serum or plasma sodium measurement (moles/volume) 142 mmol/L 135-145 Serum or plasma potassium measurement (moles/volume) 4.2 mmol/L 3.6-5.0 Serum or plasma chloride measurement (moles/volume) 104 mmol/L 98-107 Carbon dioxide 20 mmol/L 21-32 Serum or plasma anion gap determination (moles/volume) 18 mmol/L 5-14 Serum or plasma urea nitrogen measurement (mass/volume ) 10 mg/dL 7-18 Serum or plasma creatinine measurement (mass/volume) 0.81 mg/dL 0.60-1.30 Serum or plasma urea nitrogen/creatinine mass ratio 12 NRG Serum or plasma creatinine measurement w ith calculation of estimated glomerular filtration rate > NRG Serum or plasma glucose measurement (mass/volume) 135 mg/dL 70-105 Serum or plasma calcium measurement (mass/volume) 9.5 mg/dL 8.5-10.1 Serum or plasma total bilirubin measurement (mass/volu me) 0.4 mg/dL 0.1-1.0 Serum or plasma alkaline phosphatase bridger surement (enzymatic activity/volume) 52 U/L 40-136 Serum or plasma aspartate aminotransfera se measurement (enzymatic activity/volume) 22 U/L 5-34 Serum or plasma alanine aminotransferase measurement (enzymatic activity/volume) 14 U/L 0-55 Serum or plasma protein measurement (mass/volume) 7.6 g/dL 6.4-8.2 Serum or plasma albumin measurement (mass/volume) 4.2 g/dL 3.2-4.5 CALCIUM CORRECTED 9.3 mg/dL 8.5-10.1 Lipase - 09/28/18 09:00 Lipase 45 U/L 8-78 Complete urinalysis with reflex to cultu re - 09/28/18 09:15 Urine color determination YELLOW NRG Urine clarity determination SLT CLOUDY NRG Urine pH measurement by test strip 6.0 5-9 Specific gravity of urine by test strip 1.020 1.016-1.022 Urine protein assay by test strip, semi-quantitative TRACE NEGATIVE Urine glucose detection by automated test strip NE GATIVE NEGATIVE Erythrocytes detection in urine sediment by light micr oscopy NEGATIVE NEGATIVE Urine ketones detection by automated test strip NE GATIVE NEGATIVE Urine nitrite detection by test strip NEGATIVE NEGATIVE Urine total bilirubin detection by test strip NEGA TIVE NEGATIVE Urine urobilinogen measurement by automated test strip (mass/volume) 0.2 mg/dL NORMAL Urine leukocyte esterase detection by dipstick NEG ATIVE NEGATIVE Automated urine sediment erythrocyte cou nt by microscopy (number/high power field) NONE NRG Automated urine sediment leukocyte count by microscopy (number/high power field) [HPF] NRG Bacteria detection in urine sediment by light microsco py TRACE NRG Squamous epithelial cells detection in u rine sediment by light microscopy 2-5 NRG Crystals detection in urine sediment by light microsco py NONE NRG Casts detection in urine sediment by light microscopy NONE NRG Mucus detection in urine sediment by light microscopy SMALL NRG Complete urinalysis with reflex to culture NO NRG Complete urinalysis with reflex to cultu re - 10/01/18 11:05 Urine color determination YELLOW NRG Urine clarity determination CLEAR NR G Urine pH measurement by test strip 6 5-9 Specific gravity of urine by test strip 1.025 1.016-1.022 Urine protein assay by test strip, semi-quantitative 1+ NEGATIVE Urine glucose detection by automated test strip NE GATIVE NEGATIVE Erythrocytes detection in urine sediment by light micr oscopy NEGATIVE NEGATIVE Urine ketones detection by automated test strip TR ELGIN NEGATIVE Urine nitrite detection by test strip NEGATIVE NEGATIVE Urine total bilirubin detection by test strip 1+ NEGATIVE Urine urobilinogen measurement by automated test strip (mass/volume) NORMAL NORMAL Urine leukocyte esterase detection by dipstick NEG ATIVE NEGATIVE Automated urine sediment erythrocyte cou nt by microscopy (number/high power field) NONE NRG Automated urine sediment leukocyte count by microscopy (number/high power field) NONE NRG Bacteria detection in urine sediment by light microsco py NEGATIVE NRG Squamous epithelial cells detection in u rine sediment by light microscopy 2-5 NRG Crystals detection in urine sediment by light microsco py NONE NRG Casts detection in urine sediment by light microscopy NONE NRG Mucus detection in urine sediment by light microscopy SMALL NRG Complete urinalysis with reflex to culture NO NRG Urine drug screening test - 10/01/18 11: 05 Urine phencyclidine detection by screening method NEGATIVE NEGATIVE Urine benzodiazepines detection by screening method NEGATIVE NEGATIVE Urine cocaine detection NEGATIVE NEGATI VE Urine amphetamines detection by screening method N EGATIVE NEGATIVE Urine methamphetamine detection by screening method NEGATIVE NEGATIVE Urine cannabinoids detection by screening method P OSITIVE NEGATIVE Urine opiates detection by screening method NEGATI VE NEGATIVE Urine barbiturates detection NEGATIVE N EGATIVE Screening urine tricyclic antidepressants detection NEGATIVE NEGATIVE Urine methadone detection by screening method NEGA TIVE NEGATIVE Urine oxycodone detection NEGATIVE NEGA TIVE Urine propoxyphene detection NEGATIVE N EGATIVE Complete blood count (CBC) with automate d white blood cell (WBC) differential - 10/01/18 11:10 Blood leukocytes automated count (number/volume) 8.5 10*3/uL 4.3-11.0 Blood erythrocytes automated count (number/volume) 4.28 10*6/uL 4.35-5.85 Venous blood hemoglobin measurement (mass/volume) 14.0 g/dL 11.5-16.0 Blood hematocrit (volume fraction) 41 % 35-52 Automated erythrocyte mean corpuscular volume 95 [ foz_us] 80-99 Automated erythrocyte mean corpuscular h emoglobin (mass per erythrocyte) 33 pg 25-34 Automated erythrocyte mean corpuscular h emoglobin concentration measurement (mass/volume) 35 g/dL 32-36 Automated erythrocyte distribution width ratio 12. 6 % 10.0- 14.5 Automated blood platelet count (count/volume) 212 10*3/uL 130-400 Automated blood platelet mean volume measurement 10.9 [foz_us] 7.4-10.4 Automated blood neutrophils/100 leukocytes 73 % 42-75 Automated blood lymphocytes/100 leukocytes 18 % 12-44 Blood monocytes/100 leukocytes 6 % 0-12 Automated blood eosinophils/100 leukocytes 1 % 0-10 Automated blood basophils/100 leukocytes 0 % 0-10 Blood neutrophils automated count (number/volume) 6.2 10*3 1.8-7.8 Blood lymphocytes automated count (number/volume) 1.6 10*3 1.0-4.0 Blood monocytes automated count (number/volume) 0. 5 10*3 0.0-1.0 Automated eosinophil count 0.1 10*3/uL 0 .0-0.3 Automated blood basophil count (count/volume) 0.0 10*3/uL 0.0-0.1 Comprehensive metabolic panel - 10/01/18 11:10 Serum or plasma sodium measurement (moles/volume) 139 mmol/L 135-145 Serum or plasma potassium measurement (moles/volume) 4.0 mmol/L 3.6-5.0 Serum or plasma chloride measurement (moles/volume) 102 mmol/L 98-107 Carbon dioxide 23 mmol/L 21-32 Serum or plasma anion gap determination (moles/volume) 14 mmol/L 5-14 Serum or plasma urea nitrogen measurement (mass/volume ) 7 mg/dL 7-18 Serum or plasma creatinine measurement (mass/volume) 0.87 mg/dL 0.60-1.30 Serum or plasma urea nitrogen/creatinine mass ratio 8 NRG Serum or plasma creatinine measurement w ith calculation of estimated glomerular filtration rate > NRG Serum or plasma glucose measurement (mass/volume) 172 mg/dL 70-105 Serum or plasma calcium measurement (mass/volume) 9.1 mg/dL 8.5-10.1 Serum or plasma total bilirubin measurement (mass/volu me) 0.5 mg/dL 0.1-1.0 Serum or plasma alkaline phosphatase bridger surement (enzymatic activity/volume) 59 U/L 40-136 Serum or plasma aspartate aminotransfera se measurement (enzymatic activity/volume) 32 U/L 5-34 Serum or plasma alanine aminotransferase measurement (enzymatic activity/volume) 17 U/L 0-55 Serum or plasma protein measurement (mass/volume) 7.5 g/dL 6.4-8.2 Serum or plasma albumin measurement (mass/volume) 4.3 g/dL 3.2-4.5 CALCIUM CORRECTED 8.9 mg/dL 8.5-10.1 Lipase - 10/01/18 11:10 Lipase 38 U/L 8-78 Magnesium - 10/01/18 11:10 Magnesium 1.7 mg/dL 1.8-2.4 Urine drug screening test - 10/09/18 17: 55 Urine phencyclidine detection by screening method NEGATIVE NEGATIVE Urine benzodiazepines detection by screening method NEGATIVE NEGATIVE Urine cocaine detection NEGATIVE NEGATI VE Urine amphetamines detection by screening method N EGATIVE NEGATIVE Urine methamphetamine detection by screening method NEGATIVE NEGATIVE Urine cannabinoids detection by screening method P OSITIVE NEGATIVE Urine opiates detection by screening method NEGATI VE NEGATIVE Urine barbiturates detection NEGATIVE N EGATIVE Screening urine tricyclic antidepressants detection NEGATIVE NEGATIVE Urine methadone detection by screening method NEGA TIVE NEGATIVE Urine oxycodone detection NEGATIVE NEGA TIVE Urine propoxyphene detection NEGATIVE N EGATIVE Complete urinalysis with reflex to cultu re - 10/09/18 17:55 Urine color determination YELLOW NRG Urine clarity determination CLEAR NR G Urine pH measurement by test strip 7.0 5-9 Specific gravity of urine by test strip 1.015 1.016-1.022 Urine protein assay by test strip, semi-quantitative NEGATIVE NEGATIVE Urine glucose detection by automated test strip 1+ NEGATIVE Erythrocytes detection in urine sediment by light micr oscopy NEGATIVE NEGATIVE Urine ketones detection by automated test strip NE GATIVE NEGATIVE Urine nitrite detection by test strip NEGATIVE NEGATIVE Urine total bilirubin detection by test strip NEGA TIVE NEGATIVE Urine urobilinogen measurement by automated test strip (mass/volume) 0.2 mg/dL NORMAL Urine leukocyte esterase detection by dipstick NEG ATIVE NEGATIVE Automated urine sediment erythrocyte cou nt by microscopy (number/high power field) [HPF] NRG Automated urine sediment leukocyte count by microscopy (number/high power field) [HPF] NRG Bacteria detection in urine sediment by light microsco py NEGATIVE NRG Squamous epithelial cells detection in u rine sediment by light microscopy 10-25 NRG Crystals detection in urine sediment by light microsco py NONE NRG Casts detection in urine sediment by light microscopy NONE NRG Mucus detection in urine sediment by light microscopy SMALL NRG Complete urinalysis with reflex to culture NO NRG Capillary blood glucose measurement by g lucometer (mass/volume) - 10/09/18 18:09 Capillary blood glucose measurement by glucometer (mas s/volume) 160 mg/dL 70-110 Comprehensive metabolic panel - 10/09/18 18:31 Serum or plasma sodium measurement (moles/volume) 136 mmol/L 135-145 Serum or plasma potassium measurement (moles/volume) 3.6 mmol/L 3.6-5.0 Serum or plasma chloride measurement (moles/volume) 98 mmol/L 98-107 Carbon dioxide 25 mmol/L 21-32 Serum or plasma anion gap determination (moles/volume) 13 mmol/L 5-14 Serum or plasma urea nitrogen measurement (mass/volume ) 9 mg/dL 7-18 Serum or plasma creatinine measurement (mass/volume) 0.63 mg/dL 0.60-1.30 Serum or plasma urea nitrogen/creatinine mass ratio 14 NRG Serum or plasma creatinine measurement w ith calculation of estimated glomerular filtration rate > NRG Serum or plasma glucose measurement (mass/volume) 173 mg/dL 70-105 Serum or plasma calcium measurement (mass/volume) 9.2 mg/dL 8.5-10.1 Serum or plasma total bilirubin measurement (mass/volu me) 0.4 mg/dL 0.1-1.0 Serum or plasma alkaline phosphatase bridger surement (enzymatic activity/volume) 53 U/L 40-136 Serum or plasma aspartate aminotransfera se measurement (enzymatic activity/volume) 22 U/L 5-34 Serum or plasma alanine aminotransferase measurement (enzymatic activity/volume) 16 U/L 0-55 Serum or plasma protein measurement (mass/volume) 7.0 g/dL 6.4-8.2 Serum or plasma albumin measurement (mass/volume) 4.0 g/dL 3.2-4.5 CALCIUM CORRECTED 9.2 mg/dL 8.5-10.1 Lipase - 10/09/18 18:31 Lipase 52 U/L 8-78 Complete blood count (CBC) with automate d white blood cell (WBC) differential - 10/09/18 18:31 Blood leukocytes automated count (number/volume) 8.5 10*3/uL 4.3-11.0 Blood erythrocytes automated count (number/volume) 4.21 10*6/uL 4.35-5.85 Venous blood hemoglobin measurement (mass/volume) 13.8 g/dL 11.5-16.0 Blood hematocrit (volume fraction) 39 % 35-52 Automated erythrocyte mean corpuscular volume 93 [ foz_us] 80-99 Automated erythrocyte mean corpuscular h emoglobin (mass per erythrocyte) 33 pg 25-34 Automated erythrocyte mean corpuscular h emoglobin concentration measurement (mass/volume) 35 g/dL 32-36 Automated erythrocyte distribution width ratio 12. 9 % 10.0- 14.5 Automated blood platelet count (count/volume) 227 10*3/uL 130-400 Automated blood platelet mean volume measurement 10.1 [foz_us] 7.4-10.4 Automated blood neutrophils/100 leukocytes 66 % 42-75 Automated blood lymphocytes/100 leukocytes 24 % 12-44 Blood monocytes/100 leukocytes 8 % 0-12 Automated blood eosinophils/100 leukocytes 2 % 0-10 Automated blood basophils/100 leukocytes 0 % 0-10 Blood neutrophils automated count (number/volume) 5.6 10*3 1.8-7.8 Blood lymphocytes automated count (number/volume) 2.1 10*3 1.0-4.0 Blood monocytes automated count (number/volume) 0. 7 10*3 0.0-1.0 Automated eosinophil count 0.1 10*3/uL 0 .0-0.3 Automated blood basophil count (count/volume) 0.0 10*3/uL 0.0-0.1 CMP - 11/23/18 11:34 GLUCOSE 224 mg/dL 65-99 UREA NITROGEN (BUN) 9 mg/dL 7-25 CREATININE 0.89 mg/dL 0.50-1.10 eGFR NON-AFR. KOSOVAN 79 mL/min/1.73m2 > OR = 60 eGFR 92 mL/min/1.73m2 > OR = 60 BUN/CREATININE RATIO NOT APPLICABLE (calc) 6-22 SODIUM 135 mmol/L 135-146 POTASSIUM 3.2 mmol/L 3.5-5.3 CHLORIDE 99 mmol/L 98-110 CARBON DIOXIDE 24 mmol/L 20-32 CALCIUM 10.1 mg/dL 8.6-10.2 PROTEIN, TOTAL 7.5 g/dL 6.1-8.1 ALBUMIN 4.4 g/dL 3.6-5.1 GLOBULIN 3.1 g/dL (calc) 1.9-3.7 ALBUMIN/GLOBULIN RATIO 1.4 (calc) 1.0-2. 5 BILIRUBIN, TOTAL 1.0 mg/dL 0.2-1.2 ALKALINE PHOSPHATASE 56 U/L 33-115 AST 53 U/L 10-30 ALT 33 U/L 6-29 CBC w/MANUAL DIFF - 11/23/18 11:34 WHITE BLOOD CELL COUNT 8.4 Thousand/uL 3 .8-10.8 RED BLOOD CELL COUNT 4.67 Million/uL 3.8 0-5.10 HEMOGLOBIN 15.2 g/dL 11.7-15.5 HEMATOCRIT 44.1 % 35.0-45.0 MCV 94.4 fL 80.0-100.0 MCH 32.5 pg 27.0-33.0 MCHC 34.5 g/dL 32.0-36.0 RDW 12.7 % 11.0-15.0 PLATELET COUNT 239 Thousand/uL 140-400 MPV 10.9 fL 7.5-12.5 ABSOLUTE NEUTROPHILS 6023 cells/uL 1500- 7800 ABSOLUTE MONOCYTES 395 cells/uL 200-950 ABSOLUTE EOSINOPHILS 84 cells/uL 15-500 ABSOLUTE BASOPHILS 0 cells/uL 0-200 NEUTROPHILS 71.7 % NRG LYMPHOCYTES 22.6 % NRG MONOCYTES 4.7 % NRG EOSINOPHILS 1.0 % NRG BASOPHILS 0 % NRG ABSOLUTE LYMPHOCYTES 1898 cells/uL 850-3 900 PLATELET ESTIMATION ADEQUATE ADEQUATE Capillary blood glucose measurement by g lucometer (mass/volume) - 11/25/18 09:28 Capillary blood glucose measurement by glucometer (mas s/volume) 316 mg/dL 70-110 Complete blood count (CBC) with automate d white blood cell (WBC) differential - 11/25/18 09:30 Blood leukocytes automated count (number/volume) 7.2 10*3/uL 4.3-11.0 Blood erythrocytes automated count (number/volume) 4.36 10*6/uL 4.35-5.85 Venous blood hemoglobin measurement (mass/volume) 14.3 g/dL 11.5-16.0 Blood hematocrit (volume fraction) 40 % 35-52 Automated erythrocyte mean corpuscular volume 91 [ foz_us] 80-99 Automated erythrocyte mean corpuscular h emoglobin (mass per erythrocyte) 33 pg 25-34 Automated erythrocyte mean corpuscular h emoglobin concentration measurement (mass/volume) 36 g/dL 32-36 Automated erythrocyte distribution width ratio 12. 2 % 10.0- 14.5 Automated blood platelet count (count/volume) 203 10*3/uL 130-400 Automated blood platelet mean volume measurement 10.5 [foz_us] 7.4-10.4 Automated blood neutrophils/100 leukocytes 78 % 42-75 Automated blood lymphocytes/100 leukocytes 14 % 12-44 Blood monocytes/100 leukocytes 6 % 0-12 Automated blood eosinophils/100 leukocytes 1 % 0-10 Automated blood basophils/100 leukocytes 0 % 0-10 Blood neutrophils automated count (number/volume) 5.7 10*3 1.8-7.8 Blood lymphocytes automated count (number/volume) 1.0 10*3 1.0-4.0 Blood monocytes automated count (number/volume) 0. 5 10*3 0.0-1.0 Automated eosinophil count 0.0 10*3/uL 0 .0-0.3 Automated blood basophil count (count/volume) 0.0 10*3/uL 0.0-0.1 Comprehensive metabolic panel - 11/25/18 09:30 Serum or plasma sodium measurement (moles/volume) 136 mmol/L 135-145 Serum or plasma potassium measurement (moles/volume) 2.9 mmol/L 3.6-5.0 Serum or plasma chloride measurement (moles/volume) 95 mmol/L 98-107 Carbon dioxide 21 mmol/L 21-32 Serum or plasma anion gap determination (moles/volume) 20 mmol/L 5-14 Serum or plasma urea nitrogen measurement (mass/volume ) 5 mg/dL 7-18 Serum or plasma creatinine measurement (mass/volume) 0.85 mg/dL 0.60-1.30 Serum or plasma urea nitrogen/creatinine mass ratio 6 NRG Serum or plasma creatinine measurement w ith calculation of estimated glomerular filtration rate > NRG Serum or plasma glucose measurement (mass/volume) 322 mg/dL 70-105 Serum or plasma calcium measurement (mass/volume) 9.4 mg/dL 8.5-10.1 Serum or plasma total bilirubin measurement (mass/volu me) 0.5 mg/dL 0.1-1.0 Serum or plasma alkaline phosphatase bridger surement (enzymatic activity/volume) 48 U/L 40-136 Serum or plasma aspartate aminotransfera se measurement (enzymatic activity/volume) 39 U/L 5-34 Serum or plasma alanine aminotransferase measurement (enzymatic activity/volume) 28 U/L 0-55 Serum or plasma protein measurement (mass/volume) 7.2 g/dL 6.4-8.2 Serum or plasma albumin measurement (mass/volume) 4.1 g/dL 3.2-4.5 CALCIUM CORRECTED 9.3 mg/dL 8.5-10.1 Magnesium - 11/25/18 09:30 Magnesium 1.5 mg/dL 1.8-2.4 Serum or plasma amylase measurement (enz ymatic activity/volume) - 11/25/18 09:30 Serum or plasma amylase measurement (enzymatic activit y/volume) 66 U/L 25-125 Lipase - 11/25/18 09:30 Lipase 40 U/L 8-78 Beta-hydroxybutyric acid measurement - 0 11/25/18 09:30 Beta-hydroxybutyric acid measurement 0.09 mmol/L 0.00-0.27 Complete urinalysis with reflex to cultu re - 11/25/18 09:37 Urine color determination YELLOW NRG Urine clarity determination CLEAR NR G Urine pH measurement by test strip 6.5 5-9 Specific gravity of urine by test strip 1.015 1.016-1.022 Urine protein assay by test strip, semi-quantitative 1+ NEGATIVE Urine glucose detection by automated test strip 3+ NEGATIVE Erythrocytes detection in urine sediment by light micr oscopy NEGATIVE NEGATIVE Urine ketones detection by automated test strip TR ELGIN NEGATIVE Urine nitrite detection by test strip NEGATIVE NEGATIVE Urine total bilirubin detection by test strip 1+ NEGATIVE Urine urobilinogen measurement by automated test strip (mass/volume) 0.2 mg/dL NORMAL Urine leukocyte esterase detection by dipstick NEG ATIVE NEGATIVE Automated urine sediment erythrocyte cou nt by microscopy (number/high power field) NONE NRG Automated urine sediment leukocyte count by microscopy (number/high power field) [HPF] NRG Bacteria detection in urine sediment by light microsco py TRACE NRG Squamous epithelial cells detection in u rine sediment by light microscopy 10-25 NRG Crystals detection in urine sediment by light microsco py NONE NRG Casts detection in urine sediment by light microscopy NONE NRG Mucus detection in urine sediment by light microscopy LARGE NRG Complete urinalysis with reflex to culture NO NRG Arterial blood pH measurement with patie nt temperature correction - 11/25/18 10:35 Arterial blood pH measurement with patient temperature correction 7.41 7.37-7.43 Complete blood count (CBC) with automate d white blood cell (WBC) differential - 02/02/19 15:10 Blood leukocytes automated count (number/volume) 12.0 10*3/uL 4.3-11.0 Blood erythrocytes automated count (number/volume) 4.73 10*6/uL 4.35-5.85 Venous blood hemoglobin measurement (mass/volume) 15.2 g/dL 11.5-16.0 Blood hematocrit (volume fraction) 43 % 35-52 Automated erythrocyte mean corpuscular volume 91 [ foz_us] 80-99 Automated erythrocyte mean corpuscular h emoglobin (mass per erythrocyte) 32 pg 25-34 Automated erythrocyte mean corpuscular h emoglobin concentration measurement (mass/volume) 35 g/dL 32-36 Automated erythrocyte distribution width ratio 12. 6 % 10.0- 14.5 Automated blood platelet count (count/volume) 246 10*3/uL 130-400 Automated blood platelet mean volume measurement 10.5 [foz_us] 7.4-10.4 Automated blood neutrophils/100 leukocytes 81 % 42-75 Automated blood lymphocytes/100 leukocytes 14 % 12-44 Blood monocytes/100 leukocytes 4 % 0-12 Automated blood eosinophils/100 leukocytes 0 % 0-10 Automated blood basophils/100 leukocytes 0 % 0-10 Blood neutrophils automated count (number/volume) 9.7 10*3 1.8-7.8 Blood lymphocytes automated count (number/volume) 1.7 10*3 1.0-4.0 Blood monocytes automated count (number/volume) 0. 5 10*3 0.0-1.0 Automated eosinophil count 0.0 10*3/uL 0 .0-0.3 Automated blood basophil count (count/volume) 0.0 10*3/uL 0.0-0.1 Comprehensive metabolic panel - 02/02/19 15:10 Serum or plasma sodium measurement (moles/volume) 138 mmol/L 135-145 Serum or plasma potassium measurement (moles/volume) 4.4 mmol/L 3.6-5.0 Serum or plasma chloride measurement (moles/volume) 103 mmol/L 98-107 Carbon dioxide 20 mmol/L 21-32 Serum or plasma anion gap determination (moles/volume) 15 mmol/L 5-14 Serum or plasma urea nitrogen measurement (mass/volume ) 13 mg/dL 7-18 Serum or plasma creatinine measurement (mass/volume) 0.75 mg/dL 0.60-1.30 Serum or plasma urea nitrogen/creatinine mass ratio 17 NRG Serum or plasma creatinine measurement w ith calculation of estimated glomerular filtration rate > NRG Serum or plasma glucose measurement (mass/volume) 186 mg/dL 70-105 Serum or plasma calcium measurement (mass/volume) 10.2 mg/dL 8.5-10.1 Serum or plasma total bilirubin measurement (mass/volu me) 0.6 mg/dL 0.1-1.0 Serum or plasma alkaline phosphatase bridger surement (enzymatic activity/volume) 58 U/L 40-136 Serum or plasma aspartate aminotransfera se measurement (enzymatic activity/volume) 29 U/L 5-34 Serum or plasma alanine aminotransferase measurement (enzymatic activity/volume) 15 U/L 0-55 Serum or plasma protein measurement (mass/volume) 8.1 g/dL 6.4-8.2 Serum or plasma albumin measurement (mass/volume) 4.4 g/dL 3.2-4.5 CALCIUM CORRECTED 9.9 mg/dL 8.5-10.1 Lipase - 02/02/19 15:10 Lipase 44 U/L 8-78 SUREPATH PAP RFX HPV mRNA E6/E7 - 09:56 CLINICAL INFORMATION: NRG LMP: NRG PREV. PAP: NRG PREV. BX: NRG SOURCE: Vagina NRG STATEMENT OF ADEQUACY: NRG INTERPRETATION/RESULT: NRG HUMAN SERVICE SPECIALIST: NRG COMMENT NRG C-PEPTIDE, SERUM - 03/05/19 09:32 C-PEPTIDE 2.81 ng/mL 0.80-3.85 Complete urinalysis with reflex to cultu re - 03/18/19 13:25 Urine color determination YELLOW NRG Urine clarity determination CLEAR NR G Urine pH measurement by test strip 7.0 5-9 Specific gravity of urine by test strip <= 1.016-1.022 Urine protein assay by test strip, semi-quantitative NEGATIVE NEGATIVE Urine glucose detection by automated test strip NE GATIVE NEGATIVE Erythrocytes detection in urine sediment by light micr oscopy NEGATIVE NEGATIVE Urine ketones detection by automated test strip 1+ NEGATIVE Urine nitrite detection by test strip NEGATIVE NEGATIVE Urine total bilirubin detection by test strip NEGA TIVE NEGATIVE Urine urobilinogen measurement by automated test strip (mass/volume) 0.2 mg/dL < = 1.0 Urine leukocyte esterase detection by dipstick NEG ATIVE NEGATIVE Automated urine sediment erythrocyte cou nt by microscopy (number/high power field) NONE NRG Automated urine sediment leukocyte count by microscopy (number/high power field) [HPF] NRG Bacteria detection in urine sediment by light microsco py TRACE NRG Squamous epithelial cells detection in u rine sediment by light microscopy 0-2 NRG Crystals detection in urine sediment by light microsco py NONE NRG Casts detection in urine sediment by light microscopy NONE NRG Mucus detection in urine sediment by light microscopy NONE NRG Complete urinalysis with reflex to culture NO NRG Complete blood count (CBC) with automate d white blood cell (WBC) differential - 03/18/19 13:40 Blood leukocytes automated count (number/volume) 14.5 10*3/uL 4.3-11.0 Blood erythrocytes automated count (number/volume) 4.76 10*6/uL 4.35-5.85 Venous blood hemoglobin measurement (mass/volume) 15.2 g/dL 11.5-16.0 Blood hematocrit (volume fraction) 42 % 35-52 Automated erythrocyte mean corpuscular volume 87 [ foz_us] 80-99 Automated erythrocyte mean corpuscular h emoglobin (mass per erythrocyte) 32 pg 25-34 Automated erythrocyte mean corpuscular h emoglobin concentration measurement (mass/volume) 37 g/dL 32-36 Automated erythrocyte distribution width ratio 12. 2 % 10.0- 14.5 Automated blood platelet count (count/volume) 270 10*3/uL 130-400 Automated blood platelet mean volume measurement 10.2 [foz_us] 7.4-10.4 Automated blood neutrophils/100 leukocytes 76 % 42-75 Automated blood lymphocytes/100 leukocytes 16 % 12-44 Blood monocytes/100 leukocytes 8 % 0-12 Automated blood eosinophils/100 leukocytes 0 % 0-10 Automated blood basophils/100 leukocytes 0 % 0-10 Blood neutrophils automated count (number/volume) 11.0 10*3 1.8-7.8 Blood lymphocytes automated count (number/volume) 2.4 10*3 1.0-4.0 Blood monocytes automated count (number/volume) 1. 1 10*3 0.0-1.0 Automated eosinophil count 0.0 10*3/uL 0 .0-0.3 Automated blood basophil count (count/volume) 0.0 10*3/uL 0.0-0.1 Manual absolute plasma cell count - 02/24 08/11 13:40 Blood monocytes/100 leukocytes 8 % NRG Manual blood segmented neutrophils/100 leukocytes 76 % NRG Blood band neutrophils/100 leukocytes 0 % NRG Manual blood lymphocytes/100 leukocytes 15 % NRG Manual eosinophils/100 leukocytes in nose 0 % NRG Manual blood basophils/100 leukocytes 1 % NRG Comprehensive metabolic panel - 03/18/19 13:40 Serum or plasma sodium measurement (moles/volume) 131 mmol/L 135-145 Serum or plasma potassium measurement (moles/volume) 3.0 mmol/L 3.6-5.0 Serum or plasma chloride measurement (moles/volume) 94 mmol/L 98-107 Carbon dioxide 22 mmol/L 21-32 Serum or plasma anion gap determination (moles/volume) 15 mmol/L 5-14 Serum or plasma urea nitrogen measurement (mass/volume ) 9 mg/dL 7-18 Serum or plasma creatinine measurement (mass/volume) 0.74 mg/dL 0.60-1.30 Serum or plasma urea nitrogen/creatinine mass ratio 12 NRG Serum or plasma creatinine measurement w ith calculation of estimated glomerular filtration rate > NRG Serum or plasma glucose measurement (mass/volume) 209 mg/dL 70-105 Serum or plasma calcium measurement (mass/volume) 10.4 mg/dL 8.5-10.1 Serum or plasma total bilirubin measurement (mass/volu me) 1.1 mg/dL 0.1-1.0 Serum or plasma alkaline phosphatase bridger surement (enzymatic activity/volume) 58 U/L 40-136 Serum or plasma aspartate aminotransfera se measurement (enzymatic activity/volume) 28 U/L 5-34 Serum or plasma alanine aminotransferase measurement (enzymatic activity/volume) 15 U/L 0-55 Serum or plasma protein measurement (mass/volume) 7.8 g/dL 6.4-8.2 Serum or plasma albumin measurement (mass/volume) 4.4 g/dL 3.2-4.5 CALCIUM CORRECTED 10.1 mg/dL 8.5-10.1 Magnesium - 03/18/19 13:40 Magnesium 1.4 mg/dL 1.6-2.4 Lipase - 03/18/19 13:40 Lipase 21 U/L 8-78 Comprehensive metabolic panel - 04/21/19 12:58 Serum or plasma sodium measurement (moles/volume) 140 mmol/L 135-145 Serum or plasma potassium measurement (moles/volume) 4.2 mmol/L 3.6-5.0 Serum or plasma chloride measurement (moles/volume) 104 mmol/L 98-107 Carbon dioxide 22 mmol/L 21-32 Serum or plasma anion gap determination (moles/volume) 14 mmol/L 5-14 Serum or plasma urea nitrogen measurement (mass/volume ) 11 mg/dL 7-18 Serum or plasma creatinine measurement (mass/volume) 0.71 mg/dL 0.60-1.30 Serum or plasma urea nitrogen/creatinine mass ratio 15 NRG Serum or plasma creatinine measurement w ith calculation of estimated glomerular filtration rate > NRG Serum or plasma glucose measurement (mass/volume) 234 mg/dL 70-105 Serum or plasma calcium measurement (mass/volume) 9.1 mg/dL 8.5-10.1 Serum or plasma total bilirubin measurement (mass/volu me) 0.2 mg/dL 0.1-1.0 Serum or plasma alkaline phosphatase bridger surement (enzymatic activity/volume) 87 U/L 40-136 Serum or plasma aspartate aminotransfera se measurement (enzymatic activity/volume) 42 U/L 5-34 Serum or plasma alanine aminotransferase measurement (enzymatic activity/volume) 34 U/L 0-55 Serum or plasma protein measurement (mass/volume) 6.8 g/dL 6.4-8.2 Serum or plasma albumin measurement (mass/volume) 3.7 g/dL 3.2-4.5 CALCIUM CORRECTED 9.3 mg/dL 8.5-10.1 Complete blood count (CBC) with automate d white blood cell (WBC) differential - 04/21/19 12:58 Blood leukocytes automated count (number/volume) 8.4 10*3/uL 4.3-11.0 Blood erythrocytes automated count (number/volume) 4.36 10*6/uL 4.35-5.85 Venous blood hemoglobin measurement (mass/volume) 14.1 g/dL 11.5-16.0 Blood hematocrit (volume fraction) 41 % 35-52 Automated erythrocyte mean corpuscular volume 93 [ foz_us] 80-99 Automated erythrocyte mean corpuscular h emoglobin (mass per erythrocyte) 32 pg 25-34 Automated erythrocyte mean corpuscular h emoglobin concentration measurement (mass/volume) 35 g/dL 32-36 Automated erythrocyte distribution width ratio 12. 6 % 10.0- 14.5 Automated blood platelet count (count/volume) 214 10*3/uL 130-400 Automated blood platelet mean volume measurement 10.6 [foz_us] 7.4-10.4 Automated blood neutrophils/100 leukocytes 75 % 42-75 Automated blood lymphocytes/100 leukocytes 18 % 12-44 Blood monocytes/100 leukocytes 6 % 0-12 Automated blood eosinophils/100 leukocytes 1 % 0-10 Automated blood basophils/100 leukocytes 0 % 0-10 Blood neutrophils automated count (number/volume) 6.2 10*3 1.8-7.8 Blood lymphocytes automated count (number/volume) 1.5 10*3 1.0-4.0 Blood monocytes automated count (number/volume) 0. 5 10*3 0.0-1.0 Automated eosinophil count 0.1 10*3/uL 0 .0-0.3 Automated blood basophil count (count/volume) 0.0 10*3/uL 0.0-0.1 Erythrocyte sedimentation rate by beatriz gren method - 04/21/19 12:58 Erythrocyte sedimentation rate by westergren method 15 mm 0- 20 Complete urinalysis with reflex to cultu re - 04/21/19 13:05 Urine color determination YELLOW NRG Urine clarity determination CLEAR NR G Urine pH measurement by test strip 6.5 5-9 Specific gravity of urine by test strip 1.015 1.016-1.022 Urine protein assay by test strip, semi-quantitative NEGATIVE NEGATIVE Urine glucose detection by automated test strip 3+ NEGATIVE Erythrocytes detection in urine sediment by light micr oscopy NEGATIVE NEGATIVE Urine ketones detection by automated test strip NE GATIVE NEGATIVE Urine nitrite detection by test strip NEGATIVE NEGATIVE Urine total bilirubin detection by test strip NEGA TIVE NEGATIVE Urine urobilinogen measurement by automated test strip (mass/volume) 0.2 mg/dL < = 1.0 Urine leukocyte esterase detection by dipstick NEG ATIVE NEGATIVE Automated urine sediment erythrocyte cou nt by microscopy (number/high power field) RARE NRG Automated urine sediment leukocyte count by microscopy (number/high power field) RARE NRG Bacteria detection in urine sediment by light microsco py NEGATIVE NRG Squamous epithelial cells detection in u rine sediment by light microscopy 10-25 NRG Crystals detection in urine sediment by light microsco py NONE NRG Casts detection in urine sediment by light microscopy NONE NRG Mucus detection in urine sediment by light microscopy NEGATIVE NRG Complete urinalysis with reflex to culture NO NRG Urine beta human chorionic gonadotropin (hCG) measurement - 04/21/19 13:05 Urine beta human chorionic gonadotropin (hCG) measurem ent NEGATIVE NEGATIVE HEP C ANTIBODY - 06/04/19 13:10 HEPATITIS C ANTIBODY REACTIVE NON-REACT CLINT SIGNAL TO CUT-OFF 31.00 <1.00 HCV RNA, QUANTITATIVE REAL TIME PCR [id number] IU/mL NOT DETECTED HCV RNA, QUANTITATIVE REAL TIME PCR 5.99 Log IU/mL NOT DETECTED COMMENT NRG HEP C, FIBROSURE (INSURED ONLY)-APPROVAL REQUIRED - 06/20/19 10:13 FIBROSIS SCORE 0.22 NRG FIBROSIS STAGE F0-F1 NRG FIBROSIS INTERPRETATION SEE NOTE NRG NECROINFLAMMAT ACT SCORE 0.02 NRG NECROINFLAMMAT ACT GRADE A0 NRG NECROINFLAMMAT INTERP SEE NOTE NRG ALPHA 2 MACROGLOBULIN 338 mg/dL 106-279 HAPTOGLOBIN 165 mg/dL 43-212 APOLIPOPROTEIN A1 139 mg/dL 101-198 TOTAL BILIRUBIN 0.3 mg/dL 0.2-1.2 GGT 22 U/L 3-55 ALT 8 U/L 6-29 REFERENCE ID [id number] [facility] FOOTNOTE SEE NOTE NRG HEP C, GENOTYPE-APPROVAL REQUIRED - 05/27 10/12 10:46 HEPATITIS C VIRAL RNA GENOTYPE, LIPA(R) NOT DETECT ED NRG PATHOLOGY REPORT (TISSUE PAHOLOGY) - 13:32 A SOURCE NRG A GROSS DESCRIPTION NRG A DIAGNOSIS NRG CLINICAL INFORMATION NR PATHOLOGIST NRG CBC - 07/23/19 14:54 WHITE BLOOD CELL COUNT 7.1 Thousand/uL 3 .8-10.8 RED BLOOD CELL COUNT 4.66 Million/uL 3.8 0-5.10 HEMOGLOBIN 15.3 g/dL 11.7-15.5 HEMATOCRIT 43.2 % 35.0-45.0 MCV 92.7 fL 80.0-100.0 MCH 32.8 pg 27.0-33.0 MCHC 35.4 g/dL 32.0-36.0 RDW 13.0 % 11.0-15.0 PLATELET COUNT 183 Thousand/uL 140-400 MPV 10.5 fL 7.5-12.5 ABSOLUTE NEUTROPHILS 4785 cells/uL 1500- 7800 ABSOLUTE LYMPHOCYTES 1782 cells/uL 850-3 900 ABSOLUTE MONOCYTES 433 cells/uL 200-950 ABSOLUTE EOSINOPHILS 71 cells/uL 15-500 ABSOLUTE BASOPHILS 28 cells/uL 0-200 NEUTROPHILS 67.4 % NRG LYMPHOCYTES 25.1 % NRG MONOCYTES 6.1 % NRG EOSINOPHILS 1.0 % NRG BASOPHILS 0.4 % NRG PT/INR - 07/23/19 14:54 INR 1.1 NRG PT 10.8 sec 9.0-11.5 BNP - 07/23/19 14:54 B TYPE NATRIURETIC PEPTIDE (BNP) 39 pg/mL <100 Encounters ACCT No. Visit Date/Time Discharge Status Pt. Type Provider Facility Loc./Unit Complaint [id number] 07/03/2019 13:30:00 07/03/2019 23:59: 59 [facility] [id number] 07/23/2019 11:40:00 Document Registration [id number] 07/18/2019 13:15:00 Document Registration [id number] 06/20/2019 10:00:00 Document Registration [id number] 06/04/2019 13:00:00 Document Registration [id number] 03/05/2019 09:30:00 Document Registration [id number] 02/21/2019 09:45:00 Document Registration [id number] 11/23/2018 11:00:00 Document Registration [id number] 09/07/2018 10:30:00 Document Registration [id number] 08/07/2018 12:00:00 Document Registration [id number] 07/20/2018 09:00:00 Document Registration [id number] 06/04/2019 13:26:00 23:59:59 CLS Outpatient GLORY LINARES MD [facility] RAD FS K59.01 [id number] 04/21/2019 12:31:00 14:19:00 DIS Emergency MARGARET VEGA, REGINA [place] Valle [facility] ER FS HIP PAIN [id number] 03/18/2019 12:52:00 17:10:00 DIS Emergency MYRIAM REESE MD [facility] ER FS VOMITING [id number] 03/16/2019 13:02:00 13:38:00 DIS Emergency ROVENSTINE DO ALDO L [facility] ER FS VOMITING [id number] 02/02/2019 14:56:00 17:16:00 DIS Emergency LUBIN DO REBECA L [facility] ER FS VOMITING [id number] 11/25/2018 09:16:00 14:50:00 DIS Emergency MYRIAM REESE MD [facility] ER FS NAUSEA, VOMITING [id number] 10/09/2018 17:34:00 19:35:00 DIS Emergency AILYN VEGA, ADA Pride [facility] ER FS VOMITING, PAIN WITH URINATION [id number] 10/01/2018 10:50:00 14:15:00 DIS Emergency BRIAN WRIGHT DO [facility] ER FS VOMITING [id number] 09/28/2018 08:48:00 11:01:00 DIS Emergency DONAL SOMMER MD [facility] ER FS VOMITING; NAUSEA [id number] 09/22/2018 15:47:00 18:20:00 DIS Emergency KATHERIN AGUIRRE NICHOL T [facility] ER FS VOMITING; BLOOD SUGAR I SSUES [id number] 08/09/2018 14:08:00 16:05:00 DIS Emergency MICHAEL VEGA, IVANA Landaverde [facility] ER FS ABD PAIN/VOMITING ELEV BS [id number] 07/29/2018 08:13:00 11:09:00 DIS Emergency MARGARET VEGA, REGINA [place] [facility] ER FS VOMITING [id number] 07/24/2018 08:33:00 11:12:00 DIS Emergency SHAWN VEGA, NIK Bail[place] [facility] ER FS VOMITING; FACIA L SWELLING [id number] 07/21/2018 12:00:00 13:49:00 DIS Emergency CHRISTINE DECKER DO [facility] ER FS VOMITING; HYPERGLYCEMIA [id number] 07/06/2018 10:28:00 23:59:59 CLS Outpatient ESTELA KAUR [facility] RAD FS R52 G57.02 [id number] [id number] 07/04/2018 14:45:00 23:59:59 CLS Outpatient ESTELA KAUR [facility] RAD LT SIDE SCIATICA,BUTTO CK PAIN [id number] 05/19/2018 16:26:00 13:00:00 DIS Inpatient RICA VEGA, REGIAN B[place] [facility] 4TH CHRONIC N V FOR MONTHS [id number] 07/27/2019 15:15:[address] Emergency KELLY SANDOVAL DO [facility] ER FS ABD PAIN
--- NOTE | 2019-07-27 15:43 | NUR ---
G-tube appears intact. A small amount of serosanguineous drainage observed around the tube. G-tube flushes without difficulty at this time.
--- NOTE | 2019-07-27 15:57 | ED GI ---
General Chief Complaint: Abdominal/GI Problems Stated Complaint: ABD PAIN Nursing Triage Note: Patient presents to ED via EMS with c/o of severe abdominal pain. The patient states that she had a g-tube placed yesterday at and her pain has been severe since the surgery. She reports that the g-tube keeps coming out of the skin about 1 inch and she is having to press it back in. She also states that "buttons" fell off of it. Sepsis Screen: No Definite Risk Source of Information: Patient Exam Limitations: No Limitations History of Present Illness Date Seen by Provider: Jul 27, 2019 Time Seen by Provider: 15:30 Initial Comments Patient was brought in by ambulance for problems with her gastrostomy feeding tube placed yesterday. She complains that she thinks it's coming out. Patient has a history of chronic abdominal pain and for diabetic gastroparesis the patient states that her surgical clips have come out and it is hurting and when she called in for advice was told to come to the emergency room. There has been no fever or bleeding detected Timing/Duration: 12-24 Hours Severity/Quality: Severe Location: [facility] Radiation: No Radiation Activities at Onset: None Associated Symptoms: Nausea/Vomiting Allergies and Home Medications Allergies Coded Allergies: adhesive tape (Verified Allergy, Unknown, 09/28/18) chlorhexidine (Verified Allergy, Unknown, 07/29/18) fluvoxamine (Verified Allergy, Unknown, 07/29/18) hydromorphone (Verified Allergy, Unknown, 07/29/18) latex (Verified Allergy, Unknown, 07/29/18) meperidine (Verified Allergy, Unknown, 07/29/18) morphine (Verified Allergy, Unknown, 05/19/18) sulfamethoxazole (Verified Allergy, Unknown, 05/19/18) trimethoprim (Verified Allergy, Unknown, 05/19/18) metoclopramide (Unverified Adverse Reaction, Intermediate, Tardive Dyskinesia, 02/02/19) promethazine (Unverified Adverse Reaction, Intermediate, Tardive Dyskinesia, 02/02/19) Home Medications Acetaminophen 500 Mg Tablet, 500 MG PO Q8H PRN for PAIN-BREAKTHROUGH, (Reported) Albuterol Sulfate 1 Puff Puff, 2 PUFF IH Q4H PRN for SHORTNESS OF BREATH, (Reported) 1 PUFF = 90 MCG Insulin Aspart 300 Units/3 Ml Solution, 7 UNITS SQ AC Prescribed by: OSMAR JEROME on 05/23/18954 Insulin Detemir 100 Unit/1 Ml Insuln.pen, 20 UNIT SQ HS Prescribed by: OSMAR JEROME on 05/23/18954 Ipratropium/Albuterol Sulfate 3 Ml Ampul.neb, 3 ML IH Q4H PRN for SHORTNESS OF BREATH, (Reported) Ketorolac Tromethamine 10 Mg Tablet, 10 MG PO Q6H PRN for PAIN-MODERATE (5-7) Prescribed by: REGINA ROBLES MD on 04/21/19 1344 Lisinopril 20 Mg Tablet, 20 MG PO DAILY Prescribed by: OSMAR JEROME on 05/23/18954 Metformin HCl 750 Mg Tab.er.24h, 750 MG PO BID, (Reported) Metoclopramide HCl 10 Mg Tablet, 10 MG PO QID, (Reported) Omeprazole 20 Mg Capsule.dr, 20 MG PO HS, (Reported) Ondansetron 4 Mg Tab.rapdis, 4 MG PO Q4H PRN for NAUSEA/VOMITING-1ST LINE, (Reported) Promethazine HCl 25 Mg Tablet, 25 MG PO Q6H PRN for NAUSEA/VOMITING, (Reported) Promethazine HCl 25 Mg Tablet, 25 MG PO Q6H PRN for NAUSEA/VOMITING-2ND LINE Prescribed by: ADA IRELAND on 10/09/181923 Promethazine HCl 50 Mg Supp.rect, 50 MG RC BID PRN Prescribed by: ALDO GUZMAN on 03/16/19 1331 Sucralfate 1 Gm Tablet, 1 GM PO QID Mixed with 10 mL water to make a slurry. Take 30 minutes before meals and bedtime. Prescribed by: ADA IRELAND on 10/09/181923 Tramadol HCl 50 Mg Tablet, 50 MG PO Q6H PRN for PAIN-MILD, (Reported) Trazodone HCl 150 Mg Tablet, 300 MG PO HS, (Reported) Venlafaxine HCl 150 Mg Tab.er.24, 150 MG PO DAILY, (Reported) Patient Home Medication List Home Medication List Reviewed: Yes Review of Systems Review of Systems Constitutional: no symptoms reported EENTM: No Symptoms Reported Respiratory: No Symptoms Reported Cardiovascular: No Symptoms Reported Gastrointestinal: See HPI Genitourinary: No Symptoms Reported Musculoskeletal: no symptoms reported Skin: no symptoms reported Endocrine: No Symptoms Reported Past Qabhyxi-Nyrwrk-Ovkzmi Hx Past Med/Social Hx: Reviewed Nursing Past Med/Soc Hx Patient Social History Alcohol Use: Denies Use Recreational Drug Use: No Drug of Choice: THC, using CBD oil now Smoking Status: Former Smoker Type Used: Cigarettes 2nd Hand Smoke Exposure: Yes Recent Foreign Travel: No Contact w/Someone Who Travel: No Recent Infectious Disease Expo: No Recent Hopitalizations: No Physical Abuse: No Sexual Abuse: No Mistreated: No Fear: No Immunizations Up To Date Date of Pneumonia Vaccine: May 19, 2015 Date of Influenza Vaccine: Mar 29, 2018 Seasonal Allergies Seasonal Allergies: Yes Past Medical History Surgeries: Yes (knee and ankle surgery, G-tube) Gallbladder, Hysterectomy, Orthopedic Respiratory: Yes Asthma Currently Using CPAP: Yes Currently Using BIPAP: No Cardiac: No Neurological: No Female 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 Sexually Transmitted Disease: No HIV/AIDS: No Genitourinary: No Gastrointestinal: Yes (Gastroparesis; Hepatitis C; possible cyclic vomiting) Gastroesophageal Reflux, Ulcer Musculoskeletal: No Endocrine: Yes Diabetes, Insulin dep HEENT: Yes (wears glasses) Hearing Impairment: Denies Cancer: No Psychosocial: Yes (schizoeffective disorder) Anxiety, Depression Integumentary: No Blood Disorders: No Physical Exam Vital Signs Vital Signs - First Documented 07/27/19 15:28 Temp 37.2 Pulse 97 Resp 22 B/P (MAP) 204/93 (130) Pulse Ox 96 O2 Delivery Room Air Capillary Refill : Less Than 3 Seconds Height/Weight/BMI Height: 5'2.00" Weight: 184lbs. 7.0oz. 83.980804qt; 33.00 BMI Method:Actual General Appearance: WD/WN, no apparent distress HEENT: PERRL/EOMI, normal ENT inspection Neck: non-tender, normal inspection Respiratory: chest non-tender, lungs clear Cardiovascular: normal peripheral pulses, regular rate, rhythm Gastrointestinal: normal bowel sounds, soft, distended; No rebound; tenderness (there is a gastrostomy tube in the left upper quadrant with green bilious material there is no bleeding around the site it appears to be well fixated in an normal external anatomic position) Extremities: normal range of motion, non-tender Skin: normal color, warm/dry Progress/Results/Core Measures Results/Orders My Orders Orders - KELLY SANDOVAL DO Ct Abdomen/Pelvis Wo (07/27/19 16:12) Haloperidol Injection (Haldol Injectio (07/27/19 16:45) Medications Given in ED Current Medications Medications Dose Ordered Sig/Ashley Route Start Time Stop Time Status Last Admin Dose Admin Haloperidol Lactate 5 mg ONCE ONCE IV 07/27/19 16:45 07/27/19 16:46 DC 07/27/19 16:43 5 MG Vital Signs/I&O 07/27/19 07/27/19 15:28 17:03 Temp 37.2 37.2 Pulse 97 96 Resp 22 22 B/P (MAP) 204/93 (130) 155/81 (130) Pulse Ox 96 97 O2 Delivery Room Air Blood Pressure Mean: 130 Critical Care Note Critical Care Total Time (minutes) Called [facility] interventional radiology to discuss management of the patient. We do not have an adapter to connect to do a sinogram. Currently d iscussing with the interventional attendings to determine if transfer is appropriate. After discussion with IR fellow who was in agreement that a plain noncontrasted CT here would rule out both bleeding fluid collection and/or tube placement problems and the patient could probably be safely discharged home. I discussed this plan with the patient and she was in full agreement. Departure Communication (Admissions) Time/Spoke to Consulting Phy: 17:00 Spoke to the nurse practitioner in interventional radiology discussed the findings of large pneumoperitoneum and displaced stomach from the peritoneal wall with 3 cm of separation. The plan at this point will be to cloud the films so that there interventional radiologist can review them and will call me back to make recommendations. In the meantime the patient wished to be signed out AGAINST MEDICAL ADVICE she did not wish to stay any longer she understands that we are pending a final disposition from her interventional radiologist at and the plan will be to call her to advise her what his final disposition and follow-up plans are wants this review of her x-rays has been obtained. Since hematin amply stable be signed out with her boyfriend certified driver examiner return as needed or to follow-up with her operative surgeons in Impression Primary Impression: Diabetic gastroparesis Disposition: HOME, SELF-CARE Condition: Stable Departure-Patient Inst. Decision time for Depature: 17:05 Referrals: SELF,GLORY MD (PCP/Family) Primary Care Physician Patient Instructions: Acute Abdomen (Belly Pain), Adult (DC) KELLY SANDOVAL DO Jul 27, 2019 15:57
[2019-07-27] MEDS ORDERED: HALOPERIDOL 5 MG/ML (HALDOL) AMP IV ONE (16:45)
--- NOTE | 2019-07-27 16:55 | Diagnostic Imaging Report ---
PROCEDURE: CT abdomen and pelvis without contrast. TECHNIQUE: Multiple contiguous axial images were obtained through the abdomen and pelvis without the use of intravenous contrast. Auto Exposure Controls were utilized during the CT exam to meet ALARA standards for radiation dose reduction. INDICATION: G-tube placement yesterday. Nausea and vomiting. Abdominal pain. COMPARISON: CT abdomen and pelvis with IV contrast 10/01/2018. FINDINGS: Gastrostomy tube has been placed with the bulb inflated within the stomach. The tube tip traverses the remaining stomach, duodenum and terminates in the proximal jejunum. There is approximately 3 cm of tubing between the anterior abdominal wall and penetrated wall of the stomach. There is a moderate amount of free intraperitoneal air in the upper abdomen about the G-tube and along the diaphragm. No free fluid or fluid collections. No evidence of bowel obstruction. Mild dependent atelectasis in the left lung base. Cholecystectomy. Hysterectomy. The liver, pancreas, spleen, kidneys, collecting systems, bladder and appendix are negative. Stable nodular thickening of the adrenal glands. Mild colonic diverticulosis without evidence of active diverticulitis. No acute osseous findings. IMPRESSION: New gastrostomy tube with the bulb normally inflated within the stomach. There is approximately 3 cm of tubing between the anterior abdominal wall and anterior wall of the stomach with a moderate amount of adjacent free intraperitoneal air. There is also free air layering under the diaphragm. No fluid collections to suggest leak, hematoma or abscess. Findings discussed with Dr. Liu Chen at 4:50 PM on 07/27/2019. Dictated by: Dictated on workstation # [id number]
[2019-07-27 17:03] VITALS: BP 155/81
--- NOTE | 2019-07-27 17:08 | NUR ---
Patient put her call light on and informed the tech that she wanted to go home after receiving a phone call from her significant other. This RN went into the patients room to explain to her the benefits of continued medical treatments at this time. She stated, "I just want to go home now". Patient signed out AMA. Informed of benefits of continued treatment and risks for leaving against medical advice.
== END 2019-07-27 17:03 | disposition left against medical advice (07) ==
LOC: EDUNIT# 15:14 → ER FS 15:15
DX: E11.43 Type 2 diabetes mellitus with diabetic autonomic (poly)neuropathy (principal); K31.84 Gastroparesis; K21.9 Gastro-esophageal reflux disease without esophagitis; F41.9 Anxiety disorder, unspecified; F32.9 Major depressive disorder, single episode, unspecified; F25.9 Schizoaffective disorder, unspecified; B19.20 Unspecified viral hepatitis C without hepatic coma; J45.909 Unspecified asthma, uncomplicated; Z93.1 Gastrostomy status; Z87.891 Personal history of nicotine dependence; Z79.4 Long term (current) use of insulin; Z79.899 Other long term (current) drug therapy; Z91.040 Latex allergy status; Z88.5 Allergy status to narcotic agent; Z88.2 Allergy status to sulfonamides; Z88.8 Allergy status to other drugs, medicaments and biological substances
CPT/HCPCS: 74176

== ENCOUNTER → 2019-08-03 | Outpatient (CLI) | payer MEDICAID ==
[~2019-08-03] MED LIST changes: +AMLO10TA7; +AMOX400S8; +CARV25TA; +CLON0.1T; +LISI40TA
--- NOTE | 2019-08-03 16:05 | Diagnostic Imaging Report ---
INDICATION: Pain in the area of J-tube. EXAMINATION: Abdominal film obtained at 3:26 p.m. FINDINGS: GJ tube is seen overlying the upper abdomen with tip overlying the expected location of the proximal jejunum. Bowel gas pattern appears unremarkable. There are surgical clips in the right upper quadrant and right side of the pelvis. IMPRESSION: GJ tube as described above. Unremarkable bowel gas pattern. Dictated by: Dictated on workstation # [id number]
== END ==
LOC: RAD FS 15:14
PROVIDERS: ATTEND Family Medicine
DX: K59.00 Constipation, unspecified (principal); Z93.4 Other artificial openings of gastrointestinal tract status
CPT/HCPCS: 74018

== ENCOUNTER 2019-08-06 13:46 | Emergency (ER) | payer MEDICAID ==
[~2019-08-06] VITALS: Ht 160 cm; Wt 89.9 kg
[~2019-08-06 13:46] MED LIST changes: -AMLO10TA7; -AMOX400S8; -CARV25TA; -CLON0.1T; -LISI40TA
--- OUTSIDE RECORDS SUMMARY | 2019-08-06 13:54 | XMS REPORT | Continuity of Care Document ---
Author Organization Unknown Address Unknown Phone Unavailable Allergies Active Description Code Type Severity Reaction Onset Reported/Identified Relationship to Patient Clinical Status Yes morphine [id number] Drug Allergy Unknown N/A 05/19/2018 Yes sulfamethoxazole [id number] Drug Allergy Unknown N/A 05/19/2018 Yes trimethoprim [id number] Drug Allergy Unknown N/A 05/19/2018 Yes chlorhexidine [id number] Devan g Allergy Unknown N/A 07/29/2018 Yes fluvoxamine [id number] Drug Aller gy Unknown N/A 07/29/2018 Yes hydromorphone [id number] Devan g Allergy Unknown N/A 07/29/2018 Yes latex [id number] Drug Allergy Unknown N/A 07/29/2018 Yes meperidine [id number] Drug Allerg y Unknown N/A 07/29/2018 Yes adhesive tape [id number] Devan g Allergy Unknown N/A 09/28/[id number] ug Allergy Moderate Tardive Dyskine 9 Yes promethazine [id number] Drug Allergy Moderate Tardive Dyskine 9 Medications [...] APNEA (ADULT) (PEDIATR 05/22/2018 RICA VEGA, REGINA Balion Ot I10 ESSENTIAL (PRIMARY) HYPERTENSION 05/22/2018 RICA [...] 05/23/2018 REGINA STRAUSS MD Ot Z79. 4 PERSONNEL SECURITY ASSISTANT (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 OF INSULIN 05/23/2018 REGINA STRAUSS [...] 07/21/2018 CHRISTINE DECKER DO Ot Z79. 4 MCC (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 OF INSULIN 07/21/2018 CHRISTINE DECKER [...] UNSPECIFIED 07/24/2018 NIK ESCOBAR MD Ot Z79.4 MCC (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 OF INSULIN 07/24/2018 NIK ESCOBAR MD Ot Z79.84 PERSONNEL SECURITY ASSISTANT (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 OF ORAL HYPOGLYC 07/24/2018 NIK [...] UNSPECIFIED 07/28/2018 NIK ESCOBAR MD Ot Z79.4 PERSONNEL SECURITY ASSISTANT (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 OF INSULIN 07/28/2018 NIK ESCOBAR MD Ot Z79.84 PERSONNEL SECURITY ASSISTANT (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 OF ORAL HYPOGLYC 07/28/2018 NIK [...] UNSPECIFIED 07/28/2018 NIK ESCOBAR MD Ot Z79.4 MCC (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 OF INSULIN 07/28/2018 NIK ESCOBAR MD Ot Z79.84 MCC (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 OF ORAL HYPOGLYC 07/28/2018 NIK [...] VEGA, REGINA Del Valle Ot Z79. 4 MCC (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 OF INSULIN 07/29/2018 MARGARET VEGA, [...] DIABETES W DIABETIC AUTONOMIC (PO 08/02/2018 MARGARET VEGA, REGINA Del Valle Ot F25. 9 SCHIZOAFFECTIVE DISORDER, [...] MARGARET VEGA, REGINA Eligio Ot Z79. 4 PERSONNEL SECURITY ASSISTANT (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 OF INSULIN 08/02/2018 MARGARET VEGA [...] Ot F25 .9 SCHIZOAFFECTIVE DISORDER, UNSPECIFIED 08/09/2018 VIANA RODRIGUEZ MD Ot F32 .9 MAJOR DEPRESSIVE DISORDER, SINGLE EPISOD 08/09/2018 IVANA RODRIGUEZ MD Ot F41 .9 ANXIETY DISORDER, UNSPECIFIED 08/09/2018 IVANA RODRIGUEZ MD Ot J45.909 UNSPECIFIED ASTHMA, UNCOMPLICATED 08/09/2018 IVANA RODRIGUEZ MD Ot K21 .9 GASTRO-ESOPHAGEAL REFLUX DISEASE WITHOUT 08/09/2018 IVANA RODRIGUEZ MD Ot K31.84 GASTROPARESIS 08/09/2018 IVANA RODRIGUEZ MD Ot R11.10 VOMITING, UNSPECIFIED 08/09/2018 IVANA RODRIGUEZ MD Ot Z79 .4 MCC (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 OF INSULIN 08/09/2018 IVANA RODRIGUEZ [...] 08/11/2018 IVANA RODRIGUEZ MD Ot Z79 .4 MCC (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 OF INSULIN 08/11/2018 IVANA RODRIGUEZ [...] 09/22/2018 CHANDRA PANDEY DOINA T Ot Z79.4 PERSONNEL SECURITY ASSISTANT (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 OF INSULIN 09/22/2018 CHANDRA PANDEY [...] 09/28/2018 DONAL SOMMER MD, Ot Z79. 4 PERSONNEL SECURITY ASSISTANT (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 OF INSULIN 09/28/2018 DONAL SOMMER [...] SMO 10/01/2018 BRIAN WRIGHT DO, Ot Z79.4 PERSONNEL SECURITY ASSISTANT (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 OF INSULIN 10/01/2018 BRIAN WRIGHT [...] 10/03/2018 DONAL SOMMER MD Ot Z79. 4 MCC (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 OF INSULIN 10/03/2018 DONAL SOMMER [...] 10/05/2018 DONAL SOMMER MD Ot Z79. 4 MCC (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 OF INSULIN 10/05/2018 DONAL SOMMER [...] WRIGHT DO Ot F20.9 SCHIZOPHRENIA, UNSPECIFIED 10/05/2018 BRIAN WRIGHT DO Ot F32.9 MAJOR DEPRESSIVE DISORDER, SINGLE EPISOD 10/05/2018 BRIAN WRIGHT DO, Ot F41.9 ANXIETY DISORDER, UNSPECIFIED 10/05/2018 [...] SMO 10/05/2018 BRIAN WRIGHT DO, Ot Z79.4 PERSONNEL SECURITY ASSISTANT (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 OF INSULIN 10/05/2018 BRIAN WRIGHT [...] OTHER NONMEDICINAL SUBSTANCE ALLERGY STA 10/05/2018 BRIAN WRIGHT DO, Ot Z98.890 OTHER SPECIFIED [...] DYSURIA 10/09/2018 ADA ROBERTSON MD, Ot Z79.4 PERSONNEL SECURITY ASSISTANT (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 OF INSULIN 10/09/2018 ADA ROBERTSON [...] 10/09/2018 DONAL SOMMER MD Ot Z79. 4 PERSONNEL SECURITY ASSISTANT (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 OF INSULIN 10/09/2018 DONAL SOMMER [...] R11.2 NAUSEA WITH VOMITING, UNSPECIFIED 10/12/2018 ADA ROBERTSON MD, Ot R30.0 DYSURIA 10/12/2018 ADA ROBERTSON MD, Ot Z79.4 PERSONNEL SECURITY ASSISTANT (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 OF INSULIN 10/12/2018 ADA ROBERTSON [...] DYSURIA 10/13/2018 ADA ROBERTSON MD, Ot Z79.4 MCC (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 OF INSULIN 10/13/2018 ADA ROBERTSON [...] SMO 11/25/2018 MYRIAM REESE MD, Ot Z79.4 MCC (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 OF INSULIN 11/25/2018 MYRIAM REESE [...] MD, Ot K31.8 4 GASTROPARESIS 11/29/2018 MYRIAM REESE MD, Ot R11.2 NAUSEA WITH VOMITING, UNSPECIFIED 11/29/2018 MYRIAM REESE MD, Ot R82.4 ACETONURIA 11/29/2018 MYRIAM REESE MD, Ot Z77.2 2 CNTCT W AND EXPSR TO ENVIRON TOBACCO SMO 11/29/2018 MYRIAM REESE MD, Ot Z79.4 MCC (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 OF INSULIN 11/29/2018 MYRIAM REESE [...] 02/02/2019 LUBIN DO, REBECA L Ot Z79.4 MCC (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 OF INSULIN 02/02/2019 LUBIN DO, [...] 02/07/2019 LUBIN DO, REBECA L Ot Z79.4 MCC (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 OF INSULIN 02/07/2019 LUBIN DO, REBECA L Ot Z88.1 ALLERGY STATUS TO OTHER ANTIBIOTIC AGENT 02/07/2019 LUBIN DO, REBECA L Ot Z88.2 ALLERGY STATUS TO SULFONAMIDES STATUS 02/07/2019 LUBIN DO, REBECA L Ot Z88.5 ALLERGY STATUS TO NARCOTIC AGENT STATUS 02/07/2019 LUBIN DO, REBECA L Ot Z88.8 ALLERGY STATUS TO OTH DRUG/MEDS/BIOL SUB 02/07/2019 LUBIN DO, REBECA L Ot Z90.7 10 [...] 03/16/2019 ROVENSTINE DO, ALDO Ashish Ot Z79.4 PERSONNEL SECURITY ASSISTANT (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 OF INSULIN 03/16/2019 ROVENSTINE DO, [...] SMO 03/18/2019 MYRIAM REESE MD, Ot Z79.4 PERSONNEL SECURITY ASSISTANT (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 OF INSULIN 03/18/2019 MYRIAM REESE [...] 03/20/2019 ROVENSTINE DO ALDO L Ot Z79.4 MCC (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 OF INSULIN 03/20/2019 ROVENSTINE DO, [...] VEGA, REGINA Del Valle Ot Z79. 4 PERSONNEL SECURITY ASSISTANT (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 OF INSULIN 04/21/2019 MARGARET VEGA, REGINA Del Valle Ot Z88. 1 ALLERGY STATUS TO OTHER ANTIBIOTIC AGENT 04/21/2019 MARGARET VEGA, REGINA Del Valle Ot Z88. 2 ALLERGY STATUS TO SULFONAMIDES STATUS 04/21/2019 MARGARET VEGA, REGINA Del Valle Ot Z88. 5 ALLERGY STATUS TO NARCOTIC AGENT STATUS 04/21/2019 MARGARET VEGA, REGINA Del Valle Ot Z88. 8 ALLERGY STATUS TO OTH DRUG/MEDS/BIOL SUB 04/21/2019 MARGARET VEGA, REGINA Eligio Ot Z90.710 ACQUIRED ABSENCE OF BOTH CERVIX AND UTER 04/27/2019 MARGARET VEGA, REGINA Del Valle Ot B19. 20 UNSPECIFIED VIRAL HEPATITIS C WITHOUT HE 04/27/2019 MARGARET VEGA, REGINA Del Valle Ot E11. 9 TYPE 2 DIABETES MELLITUS WITHOUT COMPLIC 04/27/2019 MARGARET VEGA, REGINA Del Valle Ot F32. 9 MAJOR DEPRESSIVE DISORDER, SINGLE EPISOD 04/27/2019 MARGARET VEGA, REGINA Eligio Ot F41. 9 ANXIETY DISORDER, UNSPECIFIED 04/27/2019 MARGARET VEGA, REGINA Del Valle Ot J45.909 UNSPECIFIED ASTHMA, UNCOMPLICATED 04/27/2019 MARGARET [...] MARGARET VEGA, REGINA Eligio Ot Z79. 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 07/30/2019 SANDOVAL DO, KELLY Méndez Ot F25.9 SCHIZOAFFECTIVE DISORDER, UNSPECIFIED 07/30/2019 SANDOVAL DO, KELLY Méndez Ot F32.9 MAJOR DEPRESSIVE DISORDER, SINGLE EPISOD 07/30/2019 SANDOVAL DO, KELLY Méndez Ot F41.9 ANXIETY DISORDER, UNSPECIFIED 07/30/2019 SANDOVAL DO, KELLY Méndez Ot J45.9 09 UNSPECIFIED ASTHMA, UNCOMPLICATED 07/30/2019 SANDOVAL DO, KELLY Méndez Ot K21.9 GASTRO-ESOPHAGEAL REFLUX DISEASE WITHOUT 07/30/2019 SANDOVAL DO, KELLY Méndez Ot K31.8 4 GASTROPARESIS 07/30/2019 SANDOVAL DO, KELLY Méndez Ot R10.9 UNSPECIFIED ABDOMINAL PAIN 07/30/2019 SANDOVAL DO, KELLY Méndez Ot Z79.4 PERSONNEL SECURITY ASSISTANT (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 OF INSULIN 07/30/2019 SANDOVAL DO, KELLY Méndez Ot Z79.8 99 OTHER PERSONNEL SECURITY ASSISTANT (CURRENT) DRUG THERAPY 07/30/2019 SANDOVAL DO, KELLY Méndez Ot Z87.8 91 PERSONAL HISTORY OF NICOTINE DEPENDENCE 07/30/2019 SANDOVAL DO, KELLY Méndez Ot Z88.2 ALLERGY STATUS TO SULFONAMIDES STATUS 07/30/2019 SANDOVAL DO, KELLY Méndez Ot Z88.5 ALLERGY STATUS TO NARCOTIC AGENT STATUS 07/30/2019 SANDOVAL DO, KELLY Méndez Ot Z88.8 ALLERGY STATUS TO OTH DRUG/MEDS/BIOL SUB 07/30/2019 SANDOVAL DO, KELLY Méndez Ot Z91.0 40 LATEX ALLERGY STATUS 07/30/2019 SANDOVAL DO, KELLY Méndez Ot Z93.1 GASTROSTOMY STATUS 08/02/2019 SANDOVAL DO, KELLY Méndez Ot B19.2 0 UNSPECIFIED VIRAL HEPATITIS C WITHOUT HE 08/02/2019 SANDOVAL DO, KELLY Méndez Ot 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 08/02/2019 SANDOVAL DO, KELLY Méndez Ot F25.9 SCHIZOAFFECTIVE DISORDER, UNSPECIFIED 08/02/2019 SANDOVAL DO, KELLY Méndez Ot F32.9 MAJOR DEPRESSIVE DISORDER, SINGLE EPISOD 08/02/2019 SANDOVAL DO, KELLY Méndez Ot F41.9 ANXIETY DISORDER, UNSPECIFIED 08/02/2019 SANDOVAL DO, KELLY Méndez Ot J45.9 09 UNSPECIFIED ASTHMA, UNCOMPLICATED 08/02/2019 SANDOVAL DO, KELLY Méndez Ot K21.9 GASTRO-ESOPHAGEAL REFLUX DISEASE WITHOUT 08/02/2019 SANDOVAL DO, KELLY Méndez Ot K31.8 4 GASTROPARESIS 08/02/2019 [facility], KELLY Méndez Ot R10.9 UNSPECIFIED ABDOMINAL PAIN 08/02/2019 [facility], KELLY Méndez Ot Z79.4 MCC (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 OF INSULIN 08/02/2019 [facility], KELLY Méndez Ot Z79.8 99 OTHER MCC (CURRENT) DRUG THERAPY 08/02/2019 [facility], KELLY Méndez Ot Z87.8 91 PERSONAL HISTORY OF NICOTINE DEPENDENCE 08/02/2019 [facility], KELLY Méndez Ot Z88.2 ALLERGY STATUS TO SULFONAMIDES STATUS 08/02/2019 [facility], KELLY Méndez Ot Z88.5 ALLERGY STATUS TO NARCOTIC AGENT STATUS 08/02/2019 [facility], KELLY Méndez Ot Z88.8 ALLERGY STATUS TO OTH DRUG/MEDS/BIOL SUB 08/02/2019 [facility], KELLY Méndez Ot Z91.0 40 LATEX ALLERGY STATUS 08/02/2019 [facility], KELLY Méndez Ot Z93.1 GASTROSTOMY STATUS Procedures Code Description Performed By Per formed On [id number] EX CISION OF STOMACH, PYLORUS, ENDO, DIAG [...] 7-25 CREATININE 0.79 mg/dL 0.50-1.10 eGFR NON-AFR. ANDORRAN 92 mL/min/1.73m2 > OR = 60 eGFR [...] blood basophil count (count/volume) 0.0 10*3/uL 0.0-0.1 [facility] - 11/23/18 11:34 GLUCOSE 224 mg/dL 65-99 UREA NITROGEN (BUN) 9 mg/dL 7-25 CREATININE 0.89 mg/dL 0.50-1.10 eGFR NON-AFR. ANDORRAN 79 mL/min/1.73m2 > OR = 60 eGFR [...] HPV mRNA E6/E7 - 09:56 CLINICAL INFORMATION: NR LMP: NRG PREV. PAP: NRG PREV. BX: NRG SOURCE: Vagina NR STATEMENT OF ADEQUACY: NR INTERPRETATION/RESULT: [facility] CARTOONIST SPECIAL EFFECTS: NR COMMENT NR C-PEPTIDE, SERUM - 03/05/19 09:32 C-PEPTIDE 2.81 [...] <1.00 HCV RNA, QUANTITATIVE REAL TIME PCR [id number] IU/mL NOT DETECTED HCV RNA, QUANTITATIVE REAL [...] 3-55 ALT 8 U/L 6-29 REFERENCE ID [id number] NRG FOOTNOTE SEE NOTE NRG HEP C, GENOTYPE-APPROVAL [...] Status Pt. Type Provider Facility Loc./Unit Complaint [id number] 08/03/2019 14:45:00 ACT Outpatient [facility] [id number] 07/23/2019 11:40:00 Document Registration [id number] 07/18/2019 13:15:00 Document Registration [id number] 06/20/2019 10:00:00 Document Registration [id number] 06/04/2019 13:00:00 Document Registration [id number] 03/05/2019 09:30:00 Document Registration [id number] 02/21/2019 09:45:00 Document Registration [id number] 11/23/2018 11:00:00 Document Registration [id number] 09/07/2018 10:30:00 Document Registration [id number] 08/07/2018 12:00:00 Document Registration [id number] 07/20/2018 09:00:00 Document Registration [id number] 07/27/2019 15:15:00 17:03:00 DIS Outpatient KELLY SANDOVAL DO [facility] ER FS ABD PAIN [id number] 06/04/2019 13:26:00 23:59:59 CLS Outpatient SELF GLORY VEGA [facility] RAD FS K59.01 [id number] 04/21/2019 12:31:00 14:19:00 DIS Emergency REGINA ROBLES MD [facility] ER FS HIP PAIN [id number] 03/18/2019 12:52:00 17:10:00 DIS Emergency MYRIAM REESE MD [facility] ER FS VOMITING [id number] 03/16/2019 13:02:00 13:38:00 DIS Emergency ROVENSTBOOM DOALDO [facility] ER FS VOMITING [id number] 02/02/2019 14:56:00 17:16:00 DIS Emergency REBECA ULBIN DO [facility] ER FS VOMITING [id number] 11/25/2018 09:16:00 14:50:00 DIS Emergency MARY ANN VEGA, MYRIAM Hyde [facility] ER FS NAUSEA, VOMITING [id number] 10/09/2018 17:34:00 19:35:00 DIS Emergency AILYN VEGA, ADA Pride [facility] ER FS VOMITING, PAIN WITH URINATION [id number] 10/01/2018 10:50:00 14:15:00 DIS Emergency BRIAN WRIGHT DO [facility] ER FS VOMITING [id number] 09/28/2018 08:48:00 11:01:00 DIS Emergency KEMAL VEGA, DONAL Aguilera [facility] ER FS VOMITING; NAUSEA [id number] 09/22/2018 15:47:00 18:20:00 DIS Emergency NICHOL PANDEY DO [facility] ER FS VOMITING; BLOOD SUGAR I SSUES [id number] 08/09/2018 14:08:00 16:05:00 DIS Emergency MICHAEL VEGA, IVANA Landaverde [facility] ER FS ABD PAIN/VOMITING ELEV BS [id number] 07/29/2018 08:13:00 11:09:00 DIS Emergency MARGARET VEGA, REGINA Del Valle [facility] ER FS VOMITING [id number] 07/24/2018 08:33:00 11:12:00 DIS Emergency SHAWN VEGA, NIK Bailon [facility] ER FS VOMITING; FACIA L SWELLING [id number] 07/21/2018 12:00:00 13:49:00 DIS Emergency CHRISTINE DECKER DO [facility] ER FS VOMITING; HYPERGLYCEMIA [id number] 07/06/2018 10:28:00 23:59:59 CLS Outpatient ESTELA KAUR [facility] RAD FS R52 G57.02 M79.621 [id number] 07/04/2018 14:45:00 23:59:59 CLS Outpatient ESTELA KAUR [facility] RAD LT SIDE SCIATICA,BUTTO CK PAIN [id number] 05/19/2018 16:26:00 13:00:00 DIS Inpatient RICA VEGA, REGINA Bailon [facility] 4TH CHRONIC N V FOR MONTHS [id number] 08/03/2019 15:14:[address] Outpatient SELF GLORY VEGA [facility] RAD FS [id number] TUBE PRESENT
[2019-08-06] MEDS ORDERED: NS IV 1000 ML 1,000 ML IV STA (14:13)
[2019-08-06] MEDS ORDERED: ONDANSETRON 4 MG/2 ML (SDV) Z0FRAN IVP ONE (14:15)
--- NOTE | 2019-08-06 14:17 | ED General ---
General Stated Complaint: ABD PAIN; NAUSEA Source of Information: Patient, Old Records, RN Notes Reviewed Exam Limitations: No Limitations History of Present Illness Date Seen by Provider: Aug 06, 2019 Time Seen by Provider: 14:10 Initial Comments This patient is a 44-year-old female presents to the emergency department complaining of nausea vomiting. Patient states she has a long history of gastroparesis. Patient states that she recently admitted to and had a JG tube placed for feedings in her abdomen. Does not take oral foods. Patient states she was given a prescription prescription for oxycodone 10 tablets states that she has taken all his medications and does not have any refills. Patient has not followed up with her primary care physician. Patient becomes angry when requesting narcotic pain medication. I advised the patient that I didn't medical screening exam and evaluate. Further as needed. This patient does not appear to be in acute distress patient does not appear to be acutely dehydrated the patient states she is having bowel movements. Patient appears to have some drug seeking behavior. Patient's medical record shows she has a long history of the same patient's allergies is significant list including several different pain medications including hydromorphones MepeDine and morphine. Patient states he is a takes oxycodone's. Again I discussed at length with patient about a medical screening exam and we'll perform a medical screening exam patient be given IV fluid bolus and Zofran and Toradol if needed for pain. Patient does take oral Toradol at home. Patient understands she will not be getting any narcotic pain medication at this time. Timing/Duration: 3-4 Days Severity: Mild Associated Systoms: No Denies Symptoms, No Chest Pain, No Cough, No Diaphoresis, No Fever/Chills, No Headaches, No Loss of Appetite, No Malaise; Nausea/Vomiting; No Rash, No Seizure, No Shortness of Air, No Syncope, No Weakness, No Other Allergies and Home Medications Allergies Coded Allergies: adhesive tape (Verified Allergy, Unknown, 09/28/18) chlorhexidine (Verified Allergy, Unknown, 07/29/18) fluvoxamine (Verified Allergy, Unknown, 07/29/18) hydromorphone (Verified Allergy, Unknown, 07/29/18) latex (Verified Allergy, Unknown, 07/29/18) meperidine (Verified Allergy, Unknown, 07/29/18) morphine (Verified Allergy, Unknown, 05/19/18) sulfamethoxazole (Verified Allergy, Unknown, 05/19/18) trimethoprim (Verified Allergy, Unknown, 05/19/18) metoclopramide (Unverified Adverse Reaction, Intermediate, Tardive Dyskinesia, 02/02/19) promethazine (Unverified Adverse Reaction, Intermediate, Tardive Dyskine shannan, 02/02/19) Home Medications Acetaminophen 500 Mg Tablet, 500 MG PO Q8H PRN for PAIN-BREAKTHROUGH, (Reported) Albuterol Sulfate 1 Puff Puff, 2 PUFF IH Q4H PRN for SHORTNESS OF BREATH, (Reported) 1 PUFF = 90 MCG Insulin Aspart 300 Units/3 Ml Solution, 7 UNITS SQ AC Prescribed by: OSMAR JEROME on 05/23/18 0955 Insulin Detemir 100 Unit/1 Ml Insuln.pen, 20 UNIT SQ HS Prescribed by: OSMAR JEROME on 05/23/18 0955 Ipratropium/Albuterol Sulfate 3 Ml Ampul.neb, 3 ML IH Q4H PRN for SHORTNESS OF BREATH, (Reported) Ketorolac Tromethamine 10 Mg Tablet, 10 MG PO Q6H PRN for PAIN-MODERATE (5-7) Prescribed by: REGINA ROBLES MD on 04/21/19 1344 Lisinopril 20 Mg Tablet, 20 MG PO DAILY Prescribed by: OSMAR JEROME on 05/23/18 0955 Metformin HCl 750 Mg Tab.er.24h, 750 MG PO BID, (Reported) Metoclopramide HCl 10 Mg Tablet, 10 MG PO QID, (Reported) Omeprazole 20 Mg Capsule.dr, 20 MG PO HS, (Reported) Ondansetron 4 Mg Tab.rapdis, 4 MG PO Q4H PRN for NAUSEA/VOMITING-1ST LINE, (Reported) Promethazine HCl 25 Mg Tablet, 25 MG PO Q6H PRN for NAUSEA/VOMITING, (Reported) Promethazine HCl 25 Mg Tablet, 25 MG PO Q6H PRN for NAUSEA/VOMITING-2ND LINE Prescribed by: ADA IRELAND on 10/09/18 192 Promethazine HCl 50 Mg Supp.rect, 50 MG RC BID PRN Prescribed by: ALDO GUZMAN on 03/16/19 1331 Sucralfate 1 Gm Tablet, 1 GM PO QID Mixed with 10 mL water to make a slurry. Take 30 minutes before meals and bedtime. Prescribed by: ADA IRELAND on 10/09/181923 Tramadol HCl 50 Mg Tablet, 50 MG PO Q6H PRN for PAIN-MILD, (Reported) Trazodone HCl 150 Mg Tablet, 300 MG PO HS, (Reported) Venlafaxine HCl 150 Mg Tab.er.24, 150 MG PO DAILY, (Reported) Patient Home Medication List Home Medication List Reviewed: Yes Review of Systems Review of Systems Constitutional: No no symptoms reported; see HPI; No chills, No diaphoresis, No dizziness, No fever, No malaise, No weakness, No weight gain, No weight loss, No other EENTM: No see HPI, No no symptoms reported, No ear discharge, No hearing loss, No ear pain, No blurred vision, No double vision, No eye pain, No tearing, No vision loss, No dental problems, No hoarseness, No mouth pain, No mouth swelling, No epistaxis, No nose congestion, No nose pain, No throat pain, No throat swelling, No other Respiratory: No no symptoms reported, No see HPI, No cough, No dyspnea on exertion, No hemoptysis, No orthopnea, No phlegm, No short of breath, No stridor, No wheezing, No other Gastrointestinal: No RUQ, No LUQ, No RLQ, No LLQ, No no symptoms reported; see HPI, abdominal pain; No constipation, No diarrhea, No dysphagia, No hematemesis, No heartburn, No jaundice, No loss of appetite, No melena; nausea, vomiting; No other Musculoskeletal: No no symptoms reported, No see HPI, No back pain, No gout, No joint pain, No joint swelling, No muscle pain, No muscle stiffness, No muscle cramps, No muscle twitching, No muscle weakness, No neck pain, No other Skin: No no symptoms reported, No see HPI, No change in color, No change in hair/nails, No dryness, No hx of skin cancer, No lesions, No lumps, No pruritus, No rash, No other Past Jnyawcw-Ugdxcx-Dngnke Hx Patient Social History Drug of Choice: THC, using CBD oil now Type Used: Cigarettes 2nd Hand Smoke Exposure: Yes Recent Foreign Travel: No Contact w/Someone Who Travel: No Recent Hopitalizations: No Immunizations Up To Date Date of Pneumonia Vaccine: May 19, 2015 Date of Influenza Vaccine: Mar 29, 2018 Seasonal Allergies Seasonal Allergies: Yes Past Medical History Surgeries: Yes (knee and ankle surgery, G-tube) Gallbladder, Hysterectomy, Orthopedic Respiratory: Yes Asthma Currently Using CPAP: Yes Currently Using BIPAP: No Cardiac: No Neurological: No Female 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 Disorders: Denies [employer] History: Hysterectomy Sexually Transmitted Disease: No HIV/AIDS: No Genitourinary: No Gastrointestinal: Yes (Gastroparesis; Hepatitis C; possible cyclic vomiting) Gastroesophageal Reflux, Ulcer Musculoskeletal: No Endocrine: Yes Diabetes, Insulin dep HEENT: Yes (wears glasses) Hearing Impairment: Denies Cancer: No Psychosocial: Yes (schizoeffective disorder) Anxiety, Depression Integumentary: No Blood Disorders: No Physical Exam Vital Signs Vital Signs - First Documented 08/06/19 14:00 Temp 36.0 Pulse 83 Resp 22 B/P (MAP) 184/101 (128) Pulse Ox 96 O2 Delivery Room Air Capillary Refill : Height, Weight, BMI Height: 5'2.00" Weight: 184lbs. 7.0oz. 83.051913bw; 33.00 BMI Method:Actual General Appearance: No Apparent Distress, WD/WN Respiratory: Chest Non Tender, Lungs Clear, Normal Breath Sounds, No Accessory Muscle Use, No Respiratory Distress Cardiovascular: Regular Rate, Rhythm, No Edema, No Gallop, No JVD, No Murmur, Normal Peripheral Pulses Gastrointestinal: Normal Bowel Sounds, No Organomegaly, No Pulsatile Mass, Non Tender, Soft Extremity: Normal Capillary Refill, Normal Inspection, Normal Range of Motion, Non Tender, No Calf Tenderness, No Pedal Edema Skin: Normal Color, Warm/Dry Progress/Results/Core Measures Suspected Sepsis SIRS Temperature: Pulse: Respiratory Rate: Laboratory Tests 08/06/19 14:20: White Blood Count 16.0H Blood Pressure / Mean: Laboratory Tests 08/06/19 14:20: Creatinine 0.62, Platelet Count 267, Total Bilirubin 0.6 Results/Orders Lab Results Laboratory Tests Test 08/06/19 14:05 08/06/19 14:20 Range/Units Urine Color YELLOW Urine Clarity CLEAR Urine pH 8.0 5-9 Urine Specific Neely 1.015 L 1.016-1.022 Urine Protein NEGATIVE NEGATIVE Urine Glucose (UA) NEGATIVE NEGATIVE Urine Ketones NEGATIVE NEGATIVE Urine Nitrite NEGATIVE NEGATIVE Urine Bilirubin NEGATIVE NEGATIVE Urine Urobilinogen 0.2 < = 1.0 MG/DL Urine Leukocyte Esterase NEGATIVE NEGATIVE Urine RBC (Auto) NEGATIVE NEGATIVE Urine RBC NONE /HPF Urine WBC NONE /HPF Urine Squamous Epithelial Cells 5-10 /HPF Urine Crystals NONE /LPF Urine Bacteria TRACE /HPF Urine Casts NONE /LPF Urine Mucus NEGATIVE /LPF Urine Culture Indicated NO Urine Opiates Screen NEGATIVE NEGATIVE Urine Oxycodone Screen POSITIVE H NEGATIVE Urine Methadone Screen NEGATIVE NEGATIVE Urine Propoxyphene Screen NEGATIVE NEGATIVE Urine Barbiturates Screen NEGATIVE NEGATIVE Ur Tricyclic Antidepressants Screen NEGATIVE NEGATIVE Urine Phencyclidine Screen NEGATIVE NEGATIVE Urine Amphetamines Screen NEGATIVE NEGATIVE Urine Methamphetamines Screen NEGATIVE NEGATIVE Urine Benzodiazepines Screen NEGATIVE NEGATIVE Urine Cocaine Screen NEGATIVE NEGATIVE Urine Cannabinoids Screen POSITIVE H NEGATIVE White Blood Count 16.0 H 4.3-11.0 10^3/uL Red Blood Count 4.55 4.35-5.85 10^6/uL Hemoglobin 14.5 11.5-16.0 G/DL Hematocrit 41 35-52 % Mean Corpuscular Volume 90 80-99 FL Mean Corpuscular Hemoglobin 32 25-34 PG Mean Corpuscular Hemoglobin Concent 35 32-36 G/DL Red Cell Distribution Width 12.5 10.0-14.5 % Platelet Count 267 130-400 10^3/uL Mean Platelet Volume 8.9 7.4-10.4 FL Neutrophils (%) (Auto) 83 H 42-75 % Lymphocytes (%) (Auto) 10 L 12-44 % Monocytes (%) (Auto) 5 0-12 % Eosinophils (%) (Auto) 1 0-10 % Basophils (%) (Auto) 0 0-10 % Neutrophils # (Auto) 13.4 H 1.8-7.8 X 10^3 Lymphocytes # (Auto) 1.5 1.0-4.0 X 10^3 Monocytes # (Auto) 0.9 0.0-1.0 X 10^3 Eosinophils # (Auto) 0.2 0.0-0.3 10^3/uL Basophils # (Auto) 0.0 0.0-0.1 10^3/uL Neutrophils % (Manual) 75 % Lymphocytes % (Manual) 17 % Monocytes % (Manual) 7 % Eosinophils % (Manual) 1 % Basophils % (Manual) 0 % Band Neutrophils 0 % Blood Morphology Comment NORMAL Sodium Level 137 135-145 MMOL/L Potassium Level 4.0 3.6-5.0 MMOL/L Chloride Level 99 98-107 MMOL/L Carbon Dioxide Level 26 21-32 MMOL/L Anion Gap 12 5-14 MMOL/L Blood Urea Nitrogen 8 7-18 MG/DL Creatinine 0.62 0.60-1.30 MG/DL Estimat Glomerular Filtration Rate > 60 BUN/Creatinine Ratio 13 Glucose Level 183 H 70-105 MG/DL Calcium Level 9.7 8.5-10.1 MG/DL Corrected Calcium 9.8 8.5-10.1 MG/DL Total Bilirubin 0.6 0.1-1.0 MG/DL Aspartate Amino Transf (AST/SGOT) 13 5-34 U/L Alanine Aminotransferase (ALT/SGPT) 7 0-55 U/L Alkaline Phosphatase 59 40-136 U/L Total Protein 7.3 6.4-8.2 GM/DL Albumin 3.9 3.2-4.5 GM/DL Amylase Level 167 H 25-125 U/L Lipase 42 8-78 U/L My Orders Orders - SHAE PICHARDO MD Comprehensive Metabolic Panel (08/06/19 14:13) Lipase (08/06/19 14:13) Amylase (08/06/19 14:13) Ua Culture If Indicated (08/06/19 14:13) Ed Iv/Invasive Line Start (08/06/19 14:13) Acute Abd Series (08/06/19 14:13) Cbc With Automated Diff (08/06/19 14:13) Ns Iv 1000 Ml (Sodium Chloride 0.9%) (08/06/19 14:13) Ondansetron Injection (Zofran Injectio (08/06/19 14:15) Drug Screen Stat (Urine) (08/06/19 14:13) Manual Differential (08/06/19 14:20) Medications Given in ED Current Medications Medications Dose Ordered Sig/Ashley Route Start Time Stop Time Status Last Admin Dose Admin Ondansetron HCl 4 mg ONCE ONCE IVP 08/06/19 14:15 08/06/19 14:16 DC 08/06/19 14:29 4 MG Vital Signs/I&O 08/06/19 14:00 Temp 36.0 Pulse 83 Resp 22 B/P (MAP) 184/101 (128) Pulse Ox 96 O2 Delivery Room Air Capillary Refill : Progress Note : Time: 15:24 Progress Note Negative evaluation in the emergency department. Normal postoperative changes to the abdomen for recent JG tube placement. Some mild bruising to the abdomen. Bowel sounds are present. X-ray showed moderate to large constipation Birden. Otherwise normal exam. Patient has had no vomiting here concerning for possible drug-seeking behavior. Patient does have a scheduled appointment with her surgeon tomorrow at [facility]. Patient is encouraged to make this appointment. Follow-up with your doctors at [facility] tomorrow as instructed. Encourage by mouth fluids or fluids from per your JG tube. MiraLAX or stool softeners [id number] as needed. Continue all home other medications. Diagnostic Imaging Diagonstic Imaging: Xray Plain Films/CT/US/NM/MRI: abdomen Comments FINDINGS: Catheter projecting over the abdomen is likely a percutaneous jejunal feeding tube. Surgical clips are present in the pelvis in the right upper quadrant. A large amount of stool is present in the colon. No free air is seen on the upright radiograph. No dilated bowel. The lungs are clear. No edema. No pneumonia. No pleural effusion. No pneumothorax. Heart is normal in size. IMPRESSION: 1. Clear lungs. 2. Normal bowel gas pattern. Departure Impression Primary Impression: Abdominal wall pain Additional Impressions: Nausea and vomiting Constipation Drug-seeking behavior Disposition: 01 HOME, SELF-CARE Condition: Stable Departure-Patient Inst. Decision time for Depature: 15:25 Referrals: SELFGLORY MD (PCP/Family) Primary Care Physician Patient Instructions: Constipation, Adult (DC), Nausea and Vomiting, Adult (DC), Prescription Drug Abuse (DC) Add. Discharge Instructions: Follow-up with your doctors at [facility] tomorrow as instructed. Encourage by mouth fluids or fluids from per your JG tube. MiraLAX or stool softeners [id number] as needed. Continue all home other medications. SHAE PICHARDO MD Aug 06, 2019 14:17
[2019-08-06 14:36] LABS: BILIRUBIN,URINE NEGATIVE (NEGATIVE); CLARITY,URINE CLEAR; COLOR,URINE YELLOW; GLUCOSE, URINE (UA) NEGATIVE (NEGATIVE); KETONES,URINE NEGATIVE (NEGATIVE); LEUKOCYTE ESTERASE ,URINE NEGATIVE (NEGATIVE); NITRITE,URINE NEGATIVE (NEGATIVE); PROTEIN,URINE NEGATIVE (NEGATIVE)
[2019-08-06 14:37] LABS: AMPHETAMINE SCREEN, URINE NEGATIVE (NEGATIVE); BACTERIA,URINE TRACE /HPF; BARBITURATE SCREEN URINE NEGATIVE (NEGATIVE); BENZODIAZEPINES SCREEN URINE NEGATIVE (NEGATIVE); CANNABINOID SCREEN, URINE POSITIVE (NEGATIVE); COCAINE SCREEN URINE NEGATIVE (NEGATIVE); METHADONE STAT NEGATIVE (NEGATIVE); METHAMPHETAMINE SCREEN URINE S NEGATIVE (NEGATIVE); OPIATE SCREEN URINE NEGATIVE (NEGATIVE); OXYCODONE STAT POSITIVE (NEGATIVE); PROPOXYPHENE STAT NEGATIVE (NEGATIVE); TRICYCLIC ANTIDEPRESSANTS SCRE NEGATIVE (NEGATIVE)
[2019-08-06 14:41] LABS: HEMOGLOBIN 14.5 G/DL (11.5-16.0); MEAN CORPUSCULAR HEMOGLOBIN 32 PG (25-34)
[2019-08-06 14:42] LABS: BASOPHILS % (AUTO) 0 % (0-10); EOSINOPHILS # (AUTO) 0.2 10^3/uL (0.0-0.3); EOSINOPHILS % (AUTO) 1 % (0-10); HEMATOCRIT 41 % (35-52); LYMPHOCYTES # (AUTO) 1.5 X 10^3 (1.0-4.0); LYMPHOCYTES % (AUTO) 10 % (12-44); MEAN CORPUSCULAR HGB CONC 35 G/DL (32-36); MEAN CORPUSCULAR VOLUME 90 FL (80-99); MEAN PLATELET VOLUME 8.9 FL (7.4-10.4); MONOCYTES # (AUTO) 0.9 X 10^3 (0.0-1.0); MONOCYTES % (AUTO) 5 % (0-12); NEUTROPHILS # (AUTO) 13.4 X 10^3 (1.8-7.8); NEUTROPHILS % (AUTO) 83 % (42-75); PLATELET COUNT 267 10^3/uL (130-400); RED CELL DISTRIBUTION WIDTH 12.5 % (10.0-14.5)
--- NOTE | 2019-08-06 14:46 | Diagnostic Imaging Report ---
EXAMINATION: Abdominal series and chest radiograph HISTORY: Nausea and vomiting COMPARISON: 08/03/2019 FINDINGS: Catheter projecting over the abdomen is likely a percutaneous jejunal feeding tube. Surgical clips are present in the pelvis in the right upper quadrant. A large amount of stool is present in the colon. No free air is seen on the upright radiograph. No dilated bowel. The lungs are clear. No edema. No pneumonia. No pleural effusion. No pneumothorax. Heart is normal in size. IMPRESSION: 1. Clear lungs. 2. Normal bowel gas pattern. Dictated by: Dictated on workstation # [id number]
[2019-08-06 14:55] LABS: ALKALINE PHOSPHATASE 59 U/L (40-136); BILIRUBIN,TOTAL 0.6 MG/DL (0.1-1.0); BUN/CREATININE RATIO 13; CALCIUM 9.7 MG/DL (8.5-10.1); CARBON DIOXIDE 26 MMOL/L (21-32); CHLORIDE 99 MMOL/L (98-107); CREATININE SERUM 0.62 MG/DL (0.60-1.30); GFR ESTIMATED > 60; GLUCOSE 183 MG/DL (70-105); SODIUM 137 MMOL/L (135-145)
[2019-08-06 14:56] LABS: ALANINE AMINOTRANSFERASE 7 U/L (0-55); ALBUMIN 3.9 GM/DL (3.2-4.5); AMYLASE 167 U/L (25-125); LIPASE 42 U/L (8-78); TOTAL PROTEIN 7.3 GM/DL (6.4-8.2)
[2019-08-06 15:20] LABS: BAND NEUTROPHILS 0 %; BASOPHILS % (MANUAL) 0 %; EOSINOPHILS % (MANUAL) 1 %; LYMPHOCYTES % (MANUAL) 17 %; MONOCYTES % (MANUAL) 7 %; NEUTROPHILS % (MANUAL) 75 %; RBC MORPH NORMAL
[2019-08-06 15:41] VITALS: BP 182/95
[2019-08-06] MEDS ORDERED: CARV25TA (16:00)
[2019-08-06] MEDS ORDERED: AMLO10TA7 (16:00)
[2019-08-06] MEDS ORDERED: CLON0.1T (16:00)
[2019-08-06] MEDS ORDERED: LISI40TA (16:00)
[2019-08-06] MEDS ORDERED: AMOX400S8 (16:00)
== END 2019-08-06 15:41 | disposition home or self-care (01) ==
LOC: EDUNIT# 13:46 → ER FS 13:48
DX: E11.43 Type 2 diabetes mellitus with diabetic autonomic (poly)neuropathy (principal); K59.00 Constipation, unspecified; Z76.5 Malingerer [conscious simulation]; J45.909 Unspecified asthma, uncomplicated; B19.20 Unspecified viral hepatitis C without hepatic coma; K21.9 Gastro-esophageal reflux disease without esophagitis; F41.9 Anxiety disorder, unspecified; F32.9 Major depressive disorder, single episode, unspecified; F25.9 Schizoaffective disorder, unspecified; Z79.4 Long term (current) use of insulin; Z79.899 Other long term (current) drug therapy; Z91.040 Latex allergy status; Z88.5 Allergy status to narcotic agent; Z88.2 Allergy status to sulfonamides; Z88.8 Allergy status to other drugs, medicaments and biological substances; Z91.048 Other nonmedicinal substance allergy status
CPT/HCPCS: 36415; 74022; 80053; 80306; 81000; 82150; 83690; 85007; 85027

== ENCOUNTER → 2019-10-22 | Outpatient (CLI) | payer MEDICAID ==
[~2019-10-22] MED LIST changes: +AMLO10TA7; +AMOX400S8; +CARV25TA; +CLON0.1T; +LISI40TA
[2019-10-22 11:36] LABS: BUN/CREATININE RATIO 22; CALCIUM 9.3 MG/DL (8.5-10.1); CARBON DIOXIDE 24 MMOL/L (21-32); CHLORIDE 100 MMOL/L (98-107); CREATININE SERUM 0.63 MG/DL (0.60-1.30); GFR ESTIMATED > 60; GLUCOSE 197 MG/DL (70-105); POTASSIUM 3.9 MMOL/L (3.6-5.0); SODIUM 139 MMOL/L (135-145)
[2019-10-22 14:44] LABS: PHOSPHORUS 3.9 MG/DL (2.3-4.7)
== END ==
LOC: LAB FS 11:01
PROVIDERS: ATTEND Internal Medicine
DX: K31.84 Gastroparesis (principal)
CPT/HCPCS: 36415; 80048; 83735; 84100

== ENCOUNTER → 2019-10-29 | Outpatient (CLI) | payer MEDICAID ==
[2019-10-29 10:19] LABS: BASOPHILS % (AUTO) 0 % (0-10); EOSINOPHILS # (AUTO) 0.1 10^3/uL (0.0-0.3); EOSINOPHILS % (AUTO) 1 % (0-10); HEMATOCRIT 45 % (35-52); HEMOGLOBIN 15.4 G/DL (11.5-16.0); LYMPHOCYTES # (AUTO) 1.7 X 10^3 (1.0-4.0); LYMPHOCYTES % (AUTO) 21 % (12-44); MEAN CORPUSCULAR HEMOGLOBIN 33 PG (25-34); MEAN CORPUSCULAR HGB CONC 35 G/DL (32-36); MEAN CORPUSCULAR VOLUME 96 FL (80-99); MEAN PLATELET VOLUME 10.4 FL (7.4-10.4); MONOCYTES # (AUTO) 0.6 X 10^3 (0.0-1.0); MONOCYTES % (AUTO) 7 % (0-12); NEUTROPHILS # (AUTO) 5.6 X 10^3 (1.8-7.8); NEUTROPHILS % (AUTO) 70 % (42-75); PLATELET COUNT 197 10^3/uL (130-400); RED CELL DISTRIBUTION WIDTH 13.2 % (10.0-14.5)
[2019-10-29 10:33] LABS: MAGNESIUM 1.8 MG/DL (1.6-2.4)
[2019-10-29 10:45] LABS: ALANINE AMINOTRANSFERASE 32 U/L (0-55); ALBUMIN 3.6 GM/DL (3.2-4.5); ALKALINE PHOSPHATASE 98 U/L (40-136); BILIRUBIN,TOTAL 0.2 MG/DL (0.1-1.0); BUN/CREATININE RATIO 16; CALCIUM 9.1 MG/DL (8.5-10.1); CARBON DIOXIDE 24 MMOL/L (21-32); CHLORIDE 102 MMOL/L (98-107); GFR ESTIMATED > 60; GLUCOSE 205 MG/DL (70-105); POTASSIUM 3.7 MMOL/L (3.6-5.0); SODIUM 140 MMOL/L (135-145); TOTAL PROTEIN 6.8 GM/DL (6.4-8.2)
[2019-10-29 14:48] LABS: PHOSPHORUS 4.1 MG/DL (2.3-4.7)
== END ==
LOC: LAB FS 09:56
PROVIDERS: ATTEND Internal Medicine
DX: K31.84 Gastroparesis (principal); F19.90 Other psychoactive substance use, unspecified, uncomplicated
CPT/HCPCS: 36415; 80053; 83735; 84100; 85025

== ENCOUNTER → 2019-11-05 | Outpatient (CLI) | payer MEDICAID ==
[~2019-11-05] MED LIST changes: +DICY20TA10 PO
[2019-11-05 12:00] LABS: HEMATOCRIT 43 % (35-52); HEMOGLOBIN 14.8 G/DL (11.5-16.0); MEAN CORPUSCULAR HEMOGLOBIN 33 PG (25-34); MEAN CORPUSCULAR HGB CONC 34 G/DL (32-36); MEAN CORPUSCULAR VOLUME 96 FL (80-99); MEAN PLATELET VOLUME 10.8 FL (7.4-10.4); NEUTROPHILS % (AUTO) 75 % (42-75); PLATELET COUNT 178 10^3/uL (130-400); WHITE BLOOD COUNT 7.3 10^3/uL (4.3-11.0)
[2019-11-05 12:01] LABS: BASOPHILS % (AUTO) 0 % (0-10); EOSINOPHILS # (AUTO) 0.1 10^3/uL (0.0-0.3); EOSINOPHILS % (AUTO) 1 % (0-10); LYMPHOCYTES # (AUTO) 1.2 X 10^3 (1.0-4.0); LYMPHOCYTES % (AUTO) 17 % (12-44); LYMPHOCYTES % (MANUAL) 19 %; MONOCYTES # (AUTO) 0.5 X 10^3 (0.0-1.0); MONOCYTES % (AUTO) 6 % (0-12); MONOCYTES % (MANUAL) 5 %; NEUTROPHILS # (AUTO) 5.5 X 10^3 (1.8-7.8); NEUTROPHILS % (MANUAL) 76 %; RBC MORPH NORMAL
[2019-11-05 12:03] LABS: CARBON DIOXIDE 24 MMOL/L (21-32); CHLORIDE 105 MMOL/L (98-107); POTASSIUM 3.8 MMOL/L (3.6-5.0); SODIUM 140 MMOL/L (135-145)
[2019-11-05 12:04] LABS: ALANINE AMINOTRANSFERASE 34 U/L (0-55); ALBUMIN 3.6 GM/DL (3.2-4.5); ALKALINE PHOSPHATASE 89 U/L (40-136); BILIRUBIN,TOTAL 0.3 MG/DL (0.1-1.0); BUN/CREATININE RATIO 16; CALCIUM 9.1 MG/DL (8.5-10.1); CREATININE SERUM 0.69 MG/DL (0.60-1.30); GFR ESTIMATED > 60; GLUCOSE 276 MG/DL (70-105); MAGNESIUM 1.8 MG/DL (1.6-2.4); TOTAL PROTEIN 6.8 GM/DL (6.4-8.2)
== END ==
LOC: LAB FS 11:27
PROVIDERS: ATTEND Internal Medicine
DX: K31.84 Gastroparesis (principal)
CPT/HCPCS: 36415; 80053; 83735; 84100; 85007; 85027

== ENCOUNTER 2019-11-06 14:02 | Emergency (ER) | payer MEDICAID ==
[~2019-11-06] VITALS: Ht 157.5 cm; Wt 84.4 kg
[~2019-11-06 14:02] MED LIST changes: -DICY20TA10 PO
[2019-11-06] MEDS ORDERED: NS IV 1000 ML 1,000 ML IV STA (14:08)
--- NOTE | 2019-11-06 14:13 | ED General ---
General Stated Complaint: N/V Source of Information: Patient, Old Records, RN/MD History of Present Illness Date Seen by Provider: Nov 06, 2019 Time Seen by Provider: 14:10 Initial Comments This patient is a 44-year-old female presents to the emergency department with complaint of nausea vomiting. Patient states she has a long history of gastroparesis. States that she's been vomiting for a week. States last ate was yesterday. Last bowel movement was yesterday. Patient does have a long history of constipation issues. Patient states she has diabetes and her glucose level was 300 prior to arrival. Patient states try to follow up with her primary care physician but he is out of town saw nurse practitioner in the center to the emergency department. Patient has long list of medical allergies related to medications. Please see chart for full evaluation. Patient has a PICC line in her left arm and was placed in [facility] but does not appear to be sewn and appears to be partially dislodged. Nursing staff start a peripheral IV. Timing/Duration: 1 Week Associated Systoms: No Denies Symptoms, No Chest Pain, No Cough, No Diaphoresis, No Fever/Chills, No Headaches; Loss of Appetite; No Malaise; Nausea/Vomiting; No Rash, No Seizure, No Shortness of Air, No Syncope, No Weakness, No Other Allergies and Home Medications Allergies Coded Allergies: adhesive tape (Verified Allergy, Unknown, 09/28/18) chlorhexidine (Verified Allergy, Unknown, 07/29/18) fluvoxamine (Verified Allergy, Unknown, 07/29/18) hydromorphone (Verified Allergy, Unknown, 07/29/18) latex (Verified Allergy, Unknown, 07/29/18) meperidine (Verified Allergy, Unknown, 07/29/18) morphine (Verified Allergy, Unknown, 05/19/18) sulfamethoxazole (Verified Allergy, Unknown, 05/19/18) trimethoprim (Verified Allergy, Unknown, 05/19/18) metoclopramide (Unverified Adverse Reaction, Intermediate, Tardive Dyskinesia, 02/02/19) promethazine (Unverified Adverse Reaction, Intermediate, Tardive Dyskinesia, 02/02/19) Home Medications Acetaminophen 500 Mg Tablet, 500 MG PO Q8H PRN for PAIN-BREAKTHROUGH, (Reported) Albuterol Sulfate 1 Puff Puff, 2 PUFF IH Q4H PRN for SHORTNESS OF BREATH, (Reported) 1 PUFF = 90 MCG Insulin Aspart 300 Units/3 Ml Solution, 7 UNITS SQ AC Prescribed by: OSMAR JEROME on 05/23/18954 Insulin Detemir 100 Unit/1 Ml Insuln.pen, 20 UNIT SQ HS Prescribed by: OSMAR JEROME on 05/23/18954 Ipratropium/Albuterol Sulfate 3 Ml Ampul.neb, 3 ML IH Q4H PRN for SHORTNESS OF BREATH, (Reported) Ketorolac Tromethamine 10 Mg Tablet, 10 MG PO Q6H PRN for PAIN-MODERATE (5-7) Prescribed by: REGINA ROBLES MD on 04/21/19 1344 Lisinopril 20 Mg Tablet, 20 MG PO DAILY Prescribed by: OSMAR JEROME on 05/23/18954 Metformin HCl 750 Mg Tab.er.24h, 750 MG PO BID, (Reported) Metoclopramide HCl 10 Mg Tablet, 10 MG PO QID, (Reported) Omeprazole 20 Mg Capsule.dr, 20 MG PO HS, (Reported) Ondansetron 4 Mg Tab.rapdis, 4 MG PO Q4H PRN for NAUSEA/VOMITING-1ST LINE, (Reported) Promethazine HCl 25 Mg Tablet, 25 MG PO Q6H PRN for NAUSEA/VOMITING, (Reported) Promethazine HCl 25 Mg Tablet, 25 MG PO Q6H PRN for NAUSEA/VOMITING-2ND LINE Prescribed by: ADA IRELAND on 10/09/181923 Promethazine HCl 50 Mg Supp.rect, 50 MG RC BID PRN Prescribed by: ALDO GUZMAN on 03/16/19 1331 Sucralfate 1 Gm Tablet, 1 GM PO QID Mixed with 10 mL water to make a slurry. Take 30 minutes before meals and bedtime. Prescribed by: ADA IRELAND on 10/09/181923 Tramadol HCl 50 Mg Tablet, 50 MG PO Q6H PRN for PAIN-MILD, (Reported) Trazodone HCl 150 Mg Tablet, 300 MG PO HS, (Reported) Venlafaxine HCl 150 Mg Tab.er.24, 150 MG PO DAILY, (Reported) Patient Home Medication List Home Medication List Reviewed: Yes Review of Systems Review of Systems Constitutional: No no symptoms reported, No see HPI, No chills, No diaphoresis, No dizziness, No fever, No malaise, No weakness, No weight gain, No weight loss, No other EENTM: No see HPI, No no symptoms reported, No ear discharge, No hearing loss, No ear pain, No blurred vision, No double vision, No eye pain, No tearing, No vision loss, No dental problems, No hoarseness, No mouth pain, No mouth swelling, No epistaxis, No nose congestion, No nose pain, No throat pain, No throat swelling, No other Respiratory: No no symptoms reported, No see HPI, No cough, No dyspnea on exertion, No hemoptysis, No orthopnea, No phlegm, No short of breath, No str idor, No wheezing, No other Cardiovascular: No no symptoms reported, No see HPI, No chest pain, No edema, No Hx of Intervention, No palpitations, No syncope, No vascular heart diseas, No other Gastrointestinal: No RUQ, No LUQ, No RLQ, No LLQ, No no symptoms reported; see HPI, abdominal pain; No constipation, No diarrhea, No dysphagia, No hematemesis, No heartburn, No jaundice; loss of appetite; No melena; nausea, vomiting; No other Genitourinary: No no symptoms reported, No see HPI, No decreased output, No discharge, No dysuria, No frequency, No hematuria, No hesitancy, No incontinence, No nocturia, No pain, No other Musculoskeletal: No no symptoms reported, No see HPI, No back pain, No gout, No joint pain, No joint swelling, No muscle pain, No muscle stiffness, No muscle cramps, No muscle twitching, No muscle weakness, No neck pain, No other Skin: No no symptoms reported, No see HPI, No change in color, No change in hair/nails, No dryness, No hx of skin cancer, No lesions, No lumps, No pruritus, No rash, No other All Other Systems Reviewed Negative Unless Noted: Yes Past [id number]-Umubnj-Btnfss Hx Patient Social History Drug of Choice: THC, using CBD oil now Type Used: Cigarettes 2nd Hand Smoke Exposure: Yes Recent Foreign Travel: No Contact w/Someone Who Travel: No Recent Hopitalizations: No Immunizations Up To Date Date of Pneumonia Vaccine: May 19, 2015 Date of Influenza Vaccine: Mar 29, 2018 Seasonal Allergies Seasonal Allergies: Yes Past Medical History Surgeries: Yes (knee and ankle surgery, Jejunostomy tube 07/26/19) Gallbladder, Hysterectomy, Orthopedic Respiratory: Yes (Tobaccoism) Asthma Currently Using CPAP: Yes Currently Using BIPAP: No Cardiac: No Neurological: No Female 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 Disorders: 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 Sexually Transmitted Disease: No HIV/AIDS: No Genitourinary: No Gastrointestinal: Yes (Gastroparesis; Hepatitis C; possible cyclic vomiting) Gastroesophageal Reflux, Ulcer Musculoskeletal: No Endocrine: Yes Diabetes, Insulin dep HEENT: Yes (wears glasses) Hearing Impairment: Denies Cancer: No Psychosocial: Yes (schizoeffective disorder) Anxiety, Depression Integumentary: No Blood Disorders: No Physical Exam Vital Signs Vital Signs - First Documented 11/06/19 14:10 Temp 36.8 Pulse 85 Resp 20 B/P (MAP) 156/106 (123) Pulse Ox 97 O2 Delivery Room Air Capillary Refill : Height, Weight, BMI Height: 5'2.00" Weight: 184lbs. 7.0oz. [id number]; 35.00 BMI Method:Actual General Appearance: No Apparent Distress, WD/WN Neck: Full Range of Motion, Normal Inspection, Non Tender, Supple, Carotid Bruit Respiratory: Chest Non Tender, Lungs Clear, Normal Breath Sounds, No Accessory Muscle Use, No Respiratory Distress Cardiovascular: Regular Rate, Rhythm, No Edema, No Gallop, No JVD, No Murmur, Normal Peripheral Pulses Gastrointestinal: Normal Bowel Sounds, No Organomegaly, No Pulsatile Mass, Non Tender, Soft Extremity: Normal Capillary Refill, Normal Inspection, Normal Range of Motion, Non Tender, No Calf Tenderness, No Pedal Edema Progress/Results/Core Measures Suspected Sepsis SIRS Temperature: Pulse: Respiratory Rate: Laboratory Tests 11/06/19 14:20: White Blood Count 7.4 Blood Pressure / Mean: Laboratory Tests 11/06/19 14:20: Creatinine 0.72, Platelet Count 194, Total Bilirubin 0.6 Results/Orders Lab Results Laboratory Tests Test 11/06/19 14:20 11/06/19 14:37 11/06/19 15:00 Range/Units White Blood Count 7.4 4.3-11.0 10^3/uL Red Blood Count 4.97 4.35-5.85 10^6/uL Hemoglobin 16.1 H 11.5-16.0 G/DL Hematocrit 45 35-52 % Mean Corpuscular Volume 91 80-99 FL Mean Corpuscular Hemoglobin 32 25-34 PG Mean Corpuscular Hemoglobin Concent 36 32-36 G/DL Red Cell Distribution Width 12.7 10.0-14.5 % Platelet Count 194 130-400 10^3/uL Mean Platelet Volume 10.3 7.4-10.4 FL Neutrophils (%) (Auto) 82 H 42-75 % Lymphocytes (%) (Auto) 7 L 12-44 % Monocytes (%) (Auto) 11 0-12 % Eosinophils (%) (Auto) 0 0-10 % Basophils (%) (Auto) 0 0-10 % Neutrophils # (Auto) 6.0 1.8-7.8 X 10^3 Lymphocytes # (Auto) 0.5 L 1.0-4.0 X 10^3 Monocytes # (Auto) 0.8 0.0-1.0 X 10^3 Eosinophils # (Auto) 0.0 0.0-0.3 10^3/uL Basophils # (Auto) 0.0 0.0-0.1 10^3/uL Neutrophils % (Manual) 85 % Lymphocytes % (Manual) 4 % Monocytes % (Manual) 11 % Blood Morphology Comment NORMAL Sodium Level 133 L 135-145 MMOL/L Potassium Level 4.0 3.6-5.0 MMOL/L Chloride Level 100 98-107 MMOL/L Carbon Dioxide Level 19 L 21-32 MMOL/L Anion Gap 14 5-14 MMOL/L Blood Urea Nitrogen 14 7-18 MG/DL Creatinine 0.72 0.60-1.30 MG/DL Estimat Glomerular Filtration Rate > 60 BUN/Creatinine Ratio 19 Glucose Level 254 H 70-105 MG/DL Calcium Level 9.7 8.5-10.1 MG/DL Corrected Calcium 9.6 8.5-10.1 MG/DL Total Bilirubin 0.6 0.1-1.0 MG/DL Aspartate Amino Transf (AST/SGOT) 44 H 5-34 U/L Alanine Aminotransferase (ALT/SGPT) 37 0-55 U/L Alkaline Phosphatase 82 40-136 U/L Total Protein 7.6 6.4-8.2 GM/DL Albumin 4.1 3.2-4.5 GM/DL Lipase 26 8-78 U/L Blood Gas Puncture Site LT RAD Blood Gas Patient Temperature 36.8 Arterial Blood pH 7.51 H 7.37-7.43 Arterial Blood Partial Pressure CO2 28 L 35-45 MMHG Arterial Blood Partial Pressure O2 53 L 79-93 MMHG Arterial Blood HCO3 22 L 23-27 MMOL/L Arterial Blood Total CO2 23.2 21.0-31.0 MMOL/L Arterial Blood Oxygen Saturation 90 L 94-100 % Arterial Blood Base Excess 0.2 -2.5-2.5 MMOL/L Jad Test YES-POS Blood Gas Ventilator Setting NO Blood Gas Inspired Oxygen ROOM AIR Urine Color YELLOW Urine Clarity CLEAR Urine pH 6.5 5-9 Urine Specific [place] <=1.005 1.016-1.022 Urine Protein NEGATIVE NEGATIVE Urine Glucose (UA) 3+ H NEGATIVE Urine Ketones 1+ H NEGATIVE Urine Nitrite NEGATIVE NEGATIVE Urine Bilirubin NEGATIVE NEGATIVE Urine Urobilinogen 0.2 < = 1.0 MG/DL Urine Leukocyte Esterase NEGATIVE NEGATIVE Urine RBC (Auto) TRACE-I NEGATIVE Urine RBC 0-2 /HPF Urine WBC NONE /HPF Urine Squamous Epithelial Cells 5-10 /HPF Urine Crystals NONE /LPF Urine Bacteria NEGATIVE /HPF Urine Casts NONE /LPF Urine Mucus NEGATIVE /LPF Urine Yeast FEW H /HPF Urine Culture Indicated NO Urine Opiates Screen NEGATIVE NEGATIVE Urine Oxycodone Screen NEGATIVE NEGATIVE Urine Methadone Screen NEGATIVE NEGATIVE Urine Propoxyphene Screen NEGATIVE NEGATIVE Urine Barbiturates Screen NEGATIVE NEGATIVE Ur Tricyclic Antidepressants Screen NEGATIVE NEGATIVE Urine Phencyclidine Screen NEGATIVE NEGATIVE Urine Amphetamines Screen NEGATIVE NEGATIVE Urine Methamphetamines Screen NEGATIVE NEGATIVE Urine Benzodiazepines Screen POSITIVE H NEGATIVE Urine Cocaine Screen NEGATIVE NEGATIVE Urine Cannabinoids Screen POSITIVE H NEGATIVE My Orders Orders - SHAE PICHARDO MD Lipase (11/06/19 14:08) Ed Iv/Invasive Line Start (11/06/19 14:08) Cbc With Automated Diff (11/06/19 14:08) Comprehensive Metabolic Panel (11/06/19 14:08) Drug Screen Stat (Urine) (11/06/19 14:08) Urinalysis (11/06/19 14:08) Arterial Blood Gas (11/06/19 14:08) Abdomen Flat & Upright/Decub (11/06/19 14:08) Ns Iv 1000 Ml (Sodium Chloride 0.9%) (11/06/19 14:08) Ondansetron Injection (Zofran Injectio (11/06/19 14:15) Manual Differential (11/06/19 14:20) Prochlorperazine Injection (Compazine In (11/06/19 15:15) Medications Given in ED Current Medications Medications Dose Ordered Sig/Ashley Route Start Time Stop Time Status Last Admin Dose Admin Ondansetron HCl 4 mg ONCE ONCE IVP 11/06/19 14:15 11/06/19 14:16 DC 11/06/19 14:22 4 MG Prochlorperazine Edisylate 10 mg ONCE ONCE IV 11/06/19 15:15 11/06/19 15:16 DC 11/06/19 15:19 10 MG Vital Signs/I&O 11/06/19 14:10 Temp 36.8 Pulse 85 Resp 20 B/P (MAP) 156/106 (123) Pulse Ox 97 O2 Delivery Room Air Capillary Refill : Progress Note : Time: 15:38 Progress Note Patient is much improved after Compazine. No more dry heaving. Patient is resting comfortably. Did discuss living with patient about her chronic conditions and she states this is basically her chronic condition. We did discuss at length about excesses of marijuana smoking they can cause excessive vomiting. Patient also wears a scopolamine patch patient is instructed to remove this from time to time so she doesn't have asked her anticholinergic side effects. Patient should encourage by mouth fluids. Patient requests that we refill her Zofran 8 mg I advised patient and we will refill at 4 mg and she is to take as instructed. She's any additional medications to follow up with her primary care or specialist. Patient states understanding she is discharged home. Departure Impression Primary Impression: Nausea and vomiting Additional Impressions: Constipation History of diabetic gastroparesis Disposition: HOME, SELF-CARE Condition: Stable Departure-Patient Inst. Decision time for Depature: 15:39 Referrals: SELF,GLORY VEGA (PCP/Family) Primary Care Physician Patient Instructions: Constipation, Adult (DC), Nausea and Vomiting, Adult (DC) Add. Discharge Instructions: Encourage by mouth fluids. Advance diet slowly as tolerated. Continue with all home medications for nausea. Follow-up with your primary customer care team coach or specialist in 2-3 days. [id number]-[id number]-jdwlvih MiraLAX as needed for constipation. Scripts Ondansetron (Ondansetron Odt) 4 Mg Tab.rapdis 4 MG PO BID, #10 TAB 0 Refills Prov: SHAE PICHARDO MD 11/06/19 Dicyclomine HCl (Dicyclomine HCl) 20 Mg Tablet 20 MG PO BID, #10 TAB 0 Refills Prov: SHAE PICHARDO MD 11/06/19 SHAE PICHARDO MD Nov 06, 2019 14:13
[2019-11-06] MEDS ORDERED: ONDANSETRON 4 MG/2 ML (SDV) Z0FRAN IVP ONE (14:15)
[2019-11-06 14:32] LABS: HEMATOCRIT 45 % (35-52); HEMOGLOBIN 16.1 G/DL (11.5-16.0); MEAN CORPUSCULAR HEMOGLOBIN 32 PG (25-34); MEAN CORPUSCULAR VOLUME 91 FL (80-99); WHITE BLOOD COUNT 7.4 10^3/uL (4.3-11.0)
[2019-11-06 14:33] LABS: LYMPHOCYTES % (AUTO) 7 % (12-44); MEAN CORPUSCULAR HGB CONC 36 G/DL (32-36); MEAN PLATELET VOLUME 10.3 FL (7.4-10.4); NEUTROPHILS % (AUTO) 82 % (42-75); PLATELET COUNT 194 10^3/uL (130-400); RED CELL DISTRIBUTION WIDTH 12.7 % (10.0-14.5)
[2019-11-06 14:36] LABS: BASOPHILS % (AUTO) 0 % (0-10); EOSINOPHILS % (AUTO) 0 % (0-10); LYMPHOCYTES # (AUTO) 0.5 X 10^3 (1.0-4.0); MONOCYTES # (AUTO) 0.8 X 10^3 (0.0-1.0); MONOCYTES % (AUTO) 11 % (0-12)
--- NOTE | 2019-11-06 14:38 | Diagnostic Imaging Report ---
INDICATION: Nausea and vomiting. Abdominal pain. COMPARISON: 08/06/2019. FINDINGS: Supine and upright views the abdomen demonstrate nonobstructive small bowel gas pattern. Moderate amount of air and stool are seen scattered throughout the colon. No abnormal air-fluid levels or large collection of free intraperitoneal air is seen. No abnormal extraosseous calcifications or radiopaque foreign bodies are identified. Bony structures are age-appropriate. IMPRESSION: 1. Nonobstructive small bowel gas pattern. 2. Moderate colonic air and stool. Please correlate for constipation. Dictated by: Dictated on workstation # [id number]
[2019-11-06 14:48] LABS: ABG BASE EXCESS 0.2 MMOL/L (-2.5-2.5); ABG OXYGEN SATURATION 90 % (94-100); ABG PCO2 28 MMHG (35-45); ABG PH 7.51 (7.37-7.43); ABG PO2 53 MMHG (79-93); ABG TCO2 23.2 MMOL/L (21.0-31.0); ALLENS TEST YES-POS; INSPIRED O2 ROOM AIR; PATIENT TEMP 36.8; VENTILATOR NO
[2019-11-06 14:51] LABS: ALANINE AMINOTRANSFERASE 37 U/L (0-55); ALBUMIN 4.1 GM/DL (3.2-4.5); ALKALINE PHOSPHATASE 82 U/L (40-136); BILIRUBIN,TOTAL 0.6 MG/DL (0.1-1.0); BUN/CREATININE RATIO 19; CALCIUM 9.7 MG/DL (8.5-10.1); CARBON DIOXIDE 19 MMOL/L (21-32); CHLORIDE 100 MMOL/L (98-107); CREATININE SERUM 0.72 MG/DL (0.60-1.30); GFR ESTIMATED > 60; GLUCOSE 254 MG/DL (70-105); LIPASE 26 U/L (8-78); SODIUM 133 MMOL/L (135-145); TOTAL PROTEIN 7.6 GM/DL (6.4-8.2)
[2019-11-06 14:56] LABS: LYMPHOCYTES % (MANUAL) 4 %; NEUTROPHILS % (MANUAL) 85 %
[2019-11-06 14:57] LABS: MONOCYTES % (MANUAL) 11 %; RBC MORPH NORMAL
[2019-11-06] MEDS ORDERED: PROCHLORPERAZINE 10 MG/2ML INJ (COMPAZINE) IV ONE (15:15)
[2019-11-06 15:22] LABS: CLARITY,URINE CLEAR; COLOR,URINE YELLOW; PH,URINE 6.5 (5-9)
[2019-11-06 15:23] LABS: BACTERIA,URINE NEGATIVE /HPF; BILIRUBIN,URINE NEGATIVE (NEGATIVE); GLUCOSE, URINE (UA) 3+ (NEGATIVE); KETONES,URINE 1+ (NEGATIVE); LEUKOCYTE ESTERASE ,URINE NEGATIVE (NEGATIVE); NITRITE,URINE NEGATIVE (NEGATIVE); PROTEIN,URINE NEGATIVE (NEGATIVE); RBC,URINE 0-2 /HPF; YEAST,URINE FEW /HPF
[2019-11-06 15:31] LABS: AMPHETAMINE SCREEN, URINE NEGATIVE (NEGATIVE); BARBITURATE SCREEN URINE NEGATIVE (NEGATIVE); BENZODIAZEPINES SCREEN URINE POSITIVE (NEGATIVE); CANNABINOID SCREEN, URINE POSITIVE (NEGATIVE); COCAINE SCREEN URINE NEGATIVE (NEGATIVE); METHADONE STAT NEGATIVE (NEGATIVE); METHAMPHETAMINE SCREEN URINE S NEGATIVE (NEGATIVE); OPIATE SCREEN URINE NEGATIVE (NEGATIVE); OXYCODONE STAT NEGATIVE (NEGATIVE); PROPOXYPHENE STAT NEGATIVE (NEGATIVE); TRICYCLIC ANTIDEPRESSANTS SCRE NEGATIVE (NEGATIVE)
[2019-11-06] MEDS ORDERED: ONDA4TAB11 PO (15:41)
[2019-11-06] MEDS ORDERED: DICY20TA10 PO (15:41)
[2019-11-06 15:57] VITALS: BP 132/88
--- OUTSIDE RECORDS SUMMARY | 2019-11-06 19:29 | XMS REPORT ---
Author Author MILAGROS Bobbi Mathis [facility] Address [address] [place] [address] Care Team Providers Care Manager Mass Name Role Phone GLORY LINARES Unavailable PROBLEMS Type Condition ICD9-CM Code DLM40-RT Code Onset Dates Condition S tatus SNOMED Code Problem Cigarette smoker F17.210 Apr, Active 07879943 Problem Type 2 diabetes mellitus with other specified complication E11.69 Active 49603445 Problem Obesity (BMI 35.0-39.9 without comorbidity) E66.9 August, Active 370546216 Problem Cigarette nicotine dependence F17.200 Active 249629565 Problem Intractable vomiting with nausea R11.2 Active 72784374 Problem Depression F32.9 Active 775210622 Problem COPD (chronic obstructive pulmonary disease) J44.9 Active 42655906 Problem Other chronic pain G89.29 Active 8 1837083 Problem Insulin long-term use Z79.4 Active 904606148 Problem 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 Jul, Active 16232054 Problem Closed fracture of sacrum with routine healing S32.10XD Sep, Active Problem Gastroparesis K31.84 Active 123208 006 Problem Incontinence in female N39.3 Active 77536022 Problem Tobacco use Z72.0 Active 76991271 0 Problem Hyponatremia E87.1 Active 6533302 8 Problem Moderately severe depression F32.2 A ctive 363074443 Problem Slow transit constipation K59.01 Acti ve 49879414 Problem History of eating disorder Z86.59 Act julio c [id number] Problem Delayed gastric emptying K30 Activ e 225267941 Problem Asthma with acute exacerbati on, unspecified asthma severity, unspecified whether persistent J45.901 Active 740828757 Problem Short-term memory loss R41.3 Active 490222528 Problem Minimal depression F32.9 Active 7 87507970 Problem G tube feedings Z93.1 Active 3021 33193 Problem Asthma J45.909 Active 317261481 Problem Moderate depressive disorder F32.9 A ctive 480116974 Problem Anxiety F41.9 Active 46733854 Problem Hypertension I10 Active 3422463 3 Problem Obesity (BMI 30-39.9) E66.9 Active 695590530 Problem Chronic hepatitis C without hepatic coma B18.2 Active 379884631 Problem Constipation, unspecified constipation type K59.00 Active 02508752 Problem Jejunostomy tube present Z93.4 Activ e 431761351 ALLERGIES No Information ENCOUNTERS Encounter Location Date Diagnosis [address] [id number] [place] [address] August, [address] [id number] [address] August, [address] [id number], [place] [address] August, Moderate depressive disorder F32.9 ; Obesity (BMI 30- 39.9) E66.9 ; Jejunostomy tube present Z93.4 and Other chronic pain G89.[address] [id number], [place] [address] August, [address] [id number], [place] [address] August, [address] [id number], [place] [address] August, [address] [id number], [place] [address] August, UTI symptoms R39.[address] [id number], [place] [address] August, Jejunostomy tube present Z93 .[address] [id number] [place] [address] Jul, G tube feedings Z93.1 ; Barbi l bronchitis J20.8 ; Other chronic pain G89.29 and Obesity (BMI 30-39.9) E66.[address] [id number] [place] [address] Jul, [facility] [address] [facility] [id number] [address] [place] [address] Jul, [address] [id number] [place] [address] Jul, [address] [id number] [place] [address] Jul, [address] [id number] [place] [address] Jul, Jejunostomy tube present Z93 .4 ; Generalized abdominal pain R10.84 ; Constipation, unspecified constipation type K59.00 and Obesity (BMI 30-39.9) E66.[address] [id number] [place] [address] Jul, [address] [id number] [place] [address] Jul, [address] [id number] [place] [address] Jul, Jejunostomy tube present Z93 .4 ; Hypertension I10 ; Obesity (BMI 30-39.9) E66.9 and Constipation, unspecified constipation type K59.00 [place] [address] [facility] [id number] [address] [place] [address] Jul, [address] [id number] [place] [address] Jul, Left lumbosacral radiculopat hy M54.17 ; Other chronic pain G89.29 ; Segmental dysfunction of cervical region M99.01 ; Segmental dysfunction of thoracic region M99.02 and Segmental dysfunction of lumbar region M99.03 [facility] [address] [facility] [id number] [address] [place] [address] Jun, [address] [id number], [place] [address] 30 Jun, 2019 Dehydration E86.0 ; Gastropa resis K31.84 ; Chronic hepatitis C without hepatic coma B18.2 ; Type 2 diabetes mellitus with other specified complication E11.69 and Obesity (BMI 30-39.9) E66.[address] [id number], [place] [address] Jun, Vulvar lesion N90.[address] [id number], [place] [address] Jun, [address] [id number], [place] [address] Jun, [address] [id number], [place] [address] Jun, [address] [id number], [place] [address] Jun, Left lumbosacral radiculopat hy M54.17 ; Other chronic pain G89.29 ; Segmental dysfunction of cervical region M99.01 ; Segmental dysfunction of thoracic region M99.02 and Segmental dysfunction of lumbar region M99.[address] [id number], [place] [address] Jun, Chronic hepatitis C without hepatic coma B18.[address] [id number], [place] [address] 04 Jun, 2019 Minimal depression F32.9 ; O besity (BMI 30-39.9) E66.9 and Gastroparesis K31.84 [facility] [address] [facility] [id number] [address] [place] [address] Jun, [address] [id number], [place] [address] Jun, Pain in right hip M25.[address] [id number], [place] [address] May, Left lumbosacral radiculopat hy M54.17 ; Other chronic pain G89.29 ; Segmental dysfunction of cervical region M99.01 ; Segmental dysfunction of thoracic region M99.02 and Segmental dysfunction of lumbar region M99.[address] [id number] [place] [address] May, [address] [id number] [place] [address] May, Chronic hepatitis C without hepatic coma B18.[address] [id number], [place] [address] May, Chronic hepatitis C without hepatic coma B18.[address] [id number], [place] [address] May, [facility] [address] [facility] [id number] [address] [place] [address] May, Chronic hepatitis C without hepatic coma B18.[address] [id number], [place] [address] May, Type 2 diabetes mellitus wit h other specified complication E11.69 ; Gastroparesis K31.84 ; Hepatitis C antibody test positive R76.8 ; Dysfunction of both eustachian tubes H69.83 and Obesity (BMI 35.0-39.9 without comorbidity) E66.[address] [id number], [place] [address] May, Asthma with acute exacerbati on, unspecified asthma severity, unspecified whether persistent J45.901 ; History of hepatitis C Z86.19 and Type 2 diabetes mellitus with other specified complication E11.[address] [id number], [place] [address] May, Slow transit constipation K5 9.[address] [id number] [place] [address] 05 May, 2019 Left lumbosacral radiculopat hy M54.17 ; Other chronic pain G89.29 ; Segmental dysfunction of cervical region M99.01 ; Segmental dysfunction of thoracic region M99.02 and Segmental dysfunction of lumbar region M99.[address] [id number], [place] [address] May, Depression F32.9 ; COPD (chr onic obstructive pulmonary disease) J44.9 and Obesity (BMI 35.0-39.9 without comorbidity) E66.[address] [id number], [place] [address] Apr, Left lumbosacral radiculopat hy M54.17 ; Other chronic pain G89.29 ; Segmental dysfunction of cervical region M99.01 ; Segmental dysfunction of thoracic region M99.02 and Segmental dysfunction of lumbar region M99.03 [place] [address] [id number], [place] [address] Apr, COPD (chronic obstructive pu lmonary disease) J44.9 ; Asthma with acute exacerbation, unspecified asthma severity, unspecified whether persistent J45.901 ; Short-term memory loss R41.3 ; Moderately severe depression F32.2 and History of hepatitis C Z86.[address] [id number], [place] [address] Apr, Left lumbosacral radiculopat hy M54.17 ; Other chronic pain G89.29 ; Cervicalgia M54.2 ; Segmental dysfunction of cervical region M99.01 ; Segmental dysfunction of thoracic region M99.02 and Segmental dysfunction of lumbar region M99.[address] [id number], [place] [address] Apr, Pain in right hip M25.551 an d Pain in left hip M25.552 [facility] [address] [facility] [id number] [address] [place] [address] Apr, [address] [id number], [place] [address] Mar, [address] [id number] [place] [address] Mar, [address] 340 [id number], [place] [address] Mar, Intractable nausea and vomit ing R11.2 and Gastroparesis K31.84 [facility] [address] [facility] [id number] [address] [place] [address] Feb, [address] [id number] [place] [address] Feb, Dehydration E86.0 ; Nausea a nd vomiting, intractability of vomiting not specified, unspecified vomiting type R11.2 and Depression F32.[address] [id number], [place] [address] Feb, [address] [id number], [place] [address] Feb, [address] [id number], [place] [address] Feb, [address] [id number], [place] [address] Feb, Type 2 diabetes mellitus wit h other specified complication E11.69 ; Moderately severe depression F32.2 ; Obesity (BMI 35.0- 39.9 without comorbidity) E66.9 and Gastroparesis K31.[address] [id number], [place] [address] Feb, Type 2 diabetes mellitus wit h other specified complication E11.69 and Insulin long-term use Z79.[address] [id number], [place] [address] Jan, Type 2 diabetes mellitus wit h other specified complication E11.69 ; Gastroparesis K31.84 ; History of eating disorder Z86.59 ; Insulin long-term use Z79.4 and Encounter for immunization Z23 [address] [id number], [place] [address] Jan, Well woman exam with routine gynecological exam Z01.[address] [id number] [place] [address] Jan, Intractable vomiting with na usea, unspecified vomiting type R11.2 and Type 2 diabetes mellitus with other specified complication E11.[address] [id number], [place] [address] Dec, Gastroparesis K31.84 [facility] [address] [id number] [place] [address] Dec, Laceration of left little fi nger without foreign body without damage to nail, initial encounter S61.217A and Encounter for immunization Z23 [address] [id number], [place] [address] Dec, Brown recluse spider bite or sting, accidental or unintentional, initial encounter T63.331A and Type 2 diabetes mellitus with other specified complication E11.[address] [id number], [place] [address] Nov, Type 2 diabetes mellitus wit h other specified complication E11.[address] [id number] [place] [address] Nov, Pain with urination R30.9 an d Slow transit constipation K59.01 [place] [address] [id number], [place] [address] Nov, Intractable vomiting with na usea, unspecified vomiting type R11.[address] [id number] [place] [address] Nov, Intractable vomiting with na usea, unspecified vomiting type R11.2 and Dysfunction of both eustachian tubes H69.83 [facility] [address] [id number] [place] [address] Oct, Sprain of temporomandibular joint, initial encounter S03.40XA and Gastroparesis K31.84 [facility] [address] [id number] [place] [address] 17 Sep, [address] [facility] [address] [id number] [place] [address] Sep, [facility] [address] [id number] [place] [address] 10 Sep, 2018 Left hip pain M25.552 and Ga stroparesis K31.84 [facility] [address] [id number] [place] [address] August, [facility] [address] [id number], [place] [address] August, Type 2 diabetes mellitus wit h other specified complication E11.69 and Intractable vomiting with nausea, unspecified vomiting type R11.2 [facility] [address] 340 [id number], [place] [address] August, Type 2 diabetes mellitus darlin ated with insulin E11.9 and Tobacco use Z72.0 [facility] [address] [id number] [place] [address] Jul, Type 2 diabetes mellitus wit h other specified complication E11.69 [facility] [address] [id number] [place] [address] Jul, Type 2 diabetes mellitus wit h other specified complication E11.69 [facility] [address] [id number] [place] [address] Jul, DKA, type 2, not at goal E11 .10 and Depression F32.9 [facility] [address] [id number] [place] [address] Jul, [facility] [address] [id number], [place] [address] Jun, Type 2 diabetes mellitus wit h other specified complication E11.69 [facility] [address] [id number], [place] [address] Jun, [facility] [address] [id number] [place] [address] May, [facility] [address] [id number] [place] [address] May, [facility] [address] [id number] [place] [address] 15 May, 2018 Screening mammogram, encount er for Z12.31 [facility] [address] [id number] [place] [address] 14 May, 2018 Type 2 diabetes mellitus wit h other specified complication E11.69 and USP current use of insulin Z79.4 [facility] [address] [facility] [id number] [address] [place] [address] May, [facility] [address] [id number] [place] [address] May, DKA, type 2, not at goal E11 .10 [facility] [address] [id number] [address] [place] [address] May, [facility] [address] [facility] [id number] [address] [place] [address] Apr, [facility] [address] [facility] [id number] [address] [place] [address] Apr, [facility] [address] [id number] [address] [place] [address] Apr, [facility] [address] [id number] [address] [place] [address] Apr, [facility] [address] [facility] [id number] [address] [place] [address] Apr, [facility] [address] [facility] [id number] [address] [place] [address] Mar, [facility] [address] [facility] [id number] [address] [place] [address] Mar, [facility] [address] [id number] [address] [place] [address] Mar, [facility] [address] [id number] [address] [place] [address] Mar, [facility] [address] [facility] [id number] [address] [place] [address] Mar, [facility] [address] [facility] [id number] [address] [place] [address] Mar, [facility] [address] [facility] [id number] [address] [place] [address] Jan, IMMUNIZATIONS No Known Immunizations SOCIAL HISTORY Never Assessed REASON FOR VISIT scopolamine patches PLAN OF CARE VITAL SIGNS MEDICATIONS Medication Instructions Dosage Frequency Start Date End Date Duration S tatus Scopolamine 1 MG/3DAYS Transdermal q 72 hrs 1 patch to skin as needed 30 day(s) Active RESULTS No Results PROCEDURES No Known procedures INSTRUCTIONS MEDICATIONS ADMINISTERED No Known Medications MEDICAL (GENERAL) HISTORY Type Description Date Medical History Type 2 diabetes mellitus treated with in sulin Medical History Anxiety Medical History Depression Medical History Asthma Medical History Hypertension Medical History Delayed gastric emptying Medical History Tobacco use Medical History Cigarette nicotine dependence Medical History Intractable vomiting with nausea Medical History COPD (chronic obstructive pulmonary dise ase) Medical History Hyponatremia Medical History Slow transit constipation Medical History Pancreatitis Medical History Incontinence in female Surgical History hysterectomy Surgical History gallbladder Surgical History recontructive surgery left ankle Surgical History bilateral releases on knees Surgical History ear surgery 05/2019 Surgical History J tube 07/2019 Surgical History New J tube 08/27/2019 Hospitalization History see surgeries Hospitalization History [place], dehydration, n/v, blood sugars 11/2018 Hospitalization History J-tube placement 07/2019
--- OUTSIDE RECORDS SUMMARY | 2019-11-06 19:30 | XMS REPORT | Continuity of Care Document ---
Author Organization Unknown Address Unknown Phone Unavailable Allergies Active Description Code Type Severity Reaction Onset Reported/Identified Relationship to Patient Clinical Status Yes morphine [id number] Drug Allergy Unknown N/A 05/19/2018 Yes sulfamethoxazole [id number] Drug Allergy Unknown N/A 05/19/2018 Yes trimethoprim [id number] Drug Allergy Unknown N/A 05/19/2018 Yes chlorhexidine [id number] Devan g Allergy Unknown N/A 07/29/2018 Yes fluvoxamine [id number] Drug Aller gy Unknown N/A 07/29/2018 Yes hydromorphone [id number] Devan g Allergy Unknown N/A 07/29/2018 Yes latex [id number] Drug Allergy Unknown N/A 07/29/2018 Yes meperidine [id number] Drug Allerg y Unknown N/A 07/29/2018 Yes adhesive tape [id number] Devan g Allergy Unknown N/A 09/28/[id number] ug Allergy Moderate Tardive Dyskine 9 Yes promethazine [id number] Drug Allergy Moderate Tardive Dyskine 9 Medications [...] 05/23/2018 REGINA STRAUSS MD Ot Z79. 4 [employer] (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 OF INSULIN 05/23/2018 REGINA STRAUSS [...] 07/21/2018 CHRISTINE DECKER DO Ot Z79. 4 SKILLED NURSING (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 OF INSULIN 07/21/2018 HCRISTINE DECKER DO Ot Z88. 2 ALLERGY STATUS [...] UNSPECIFIED 07/24/2018 NIK ESCOBAR MD Ot Z79.4 SKILLED NURSING (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 OF INSULIN 07/24/2018 NIK ESCOBAR MD Ot Z79.84 [employer] (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 OF ORAL HYPOGLYC 07/24/2018 NIK ESCOBAR MD Ot Z88.2 ALLERGY STATUS TO SULFONAMIDES STATUS 07/24/2018 NIK ESCOBAR MD Ot Z88.5 ALLERGY STATUS TO NARCOTIC AGENT STATUS 07/24/2018 NIK ESCOBAR MD Ot Z88.8 ALLERGY STATUS TO OTH DRUG/MEDS/BIOL SUB 07/24/2018 NIK ESCOBAR MD Ot Z90.710 ACQUIRED ABSENCE OF BOTH CERVIX AND UTER 07/24/2018 NIK ESCBOAR MD Ot Z91.040 LATEX ALLERGY STATUS 07/24/2018 [...] UNSPECIFIED 07/28/2018 NIK ESCOBAR MD Ot Z79.4 [employer] (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 OF INSULIN 07/28/2018 NIK ESCOBAR MD Ot Z79.84 [employer] (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 OF ORAL HYPOGLYC 07/28/2018 NIK [...] UNSPECIFIED 07/28/2018 NIK ESCOBAR MD Ot Z79.4 SKILLED NURSING (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 OF INSULIN 07/28/2018 NIK ESCOBAR MD Ot Z79.84 SKILLED NURSING (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 OF ORAL HYPOGLYC 07/28/2018 NIK [...] VEGA, REGINA Del Valle Ot Z79. 4 SKILLED NURSING (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 OF INSULIN 07/29/2018 MARGARET VEGA, [...] MARGARET VEGA, REGINA Eligio Ot Z79. 4 [employer] (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 OF INSULIN 08/02/2018 MARGARET VEGA [...] 08/09/2018 IVANA RODRIGUEZ MD Ot Z79 .4 SKILLED NURSING (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 OF INSULIN 08/09/2018 IVANA RODRIGUEZ [...] 08/11/2018 IVANA RODRIGUEZ MD Ot Z79 .4 SKILLED NURSING (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 OF INSULIN 08/11/2018 IVANA RODRIGUEZ [...] 09/22/2018 CHANDRA PANDEY DOINA T Ot Z79.4 [employer] (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 OF INSULIN 09/22/2018 CHANDRA PANDEY [...] MD, Ot I10 ESSENTIAL (PRIMARY) HYPERTENSION 09/28/2018 DNOAL SOMMER MD, Ot J45.909 UNSPECIFIED ASTHMA, UNCOMPLICATED 09/28/2018 DONAL SOMMER MD, Ot K21. 9 GASTRO-ESOPHAGEAL REFLUX DISEASE WITHOUT 09/28/2018 DONAL SOMMER MD, Ot K31. 84 GASTROPARESIS 09/28/2018 DONAL SOMMER MD, Ot R11. 2 NAUSEA WITH VOMITING, UNSPECIFIED 09/28/2018 DONAL SOMMER MD, Ot Z77. 22 CNTCT W AND EXPSR TO ENVIRON TOBACCO SMO 09/28/2018 DONAL SOMMER MD, Ot Z79. 4 [employer] (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 OF INSULIN 09/28/2018 DONAL SOMMER [...] UNSPECIFIED VIRAL HEPATITIS C WITHOUT HE 10/01/2018 BIRAN WRIGHT DO, Ot E11.43 TYPE 2 DIABETES [...] SMO 10/01/2018 BRIAN WRIGHT DO, Ot Z79.4 [employer] (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 OF INSULIN 10/01/2018 BRIAN WRIGHT [...] 10/03/2018 DONAL SOMMER MD Ot Z79. 4 SKILLED NURSING (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 OF INSULIN 10/03/2018 DONAL SOMMER [...] 10/05/2018 DONAL SOMMER MD Ot Z79. 4 SKILLED NURSING (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 OF INSULIN 10/05/2018 DONAL SOMMER [...] SMO 10/05/2018 BRIAN WRIGHT DO, Ot Z79.4 [employer] (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 OF INSULIN 10/05/2018 BRIAN WRIGHT [...] DYSURIA 10/09/2018 ADA ROBERTSON MD, Ot Z79.4 [employer] (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 OF INSULIN 10/09/2018 ADA ROBERTSON [...] Z98.890 OTHER SPECIFIED POSTPROCEDURAL STATES 10/09/2018 ESTELA KUAR Ot M51.24 OTHER INTERVERTEBRAL DISC DISPLACEMENT, 10/09/2018 [...] 10/09/2018 DONAL SOMMER MD Ot Z79. 4 [employer] (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 OF INSULIN 10/09/2018 DONAL SOMMER MD, Ot Z88. 2 ALLERGY STATUS TO SULFONAMIDES STATUS 10/09/2018 DONAL SOMMER MD Ot Z88. 5 ALLERGY STATUS TO NARCOTIC AGENT STATUS 10/09/2018 DONAL SOMMER MD Ot Z88. 8 ALLERGY STATUS TO OTH DRUG/MEDS/BIOL SUB 10/09/2018 DONAL SOMMER MD Ot Z90.710 ACQUIRED ABSENCE OF BOTH CERVIX AND UTER 10/09/2018 DONAL SMOMER MD Ot Z91.040 LATEX ALLERGY STATUS 10/09/2018 [...] F32.9 MAJOR DEPRESSIVE DISORDER, SINGLE EPISOD 10/12/2018 DAA ROBERTSON MD, Ot F41.9 ANXIETY DISORDER, UNSPECIFIED [...] DYSURIA 10/12/2018 ADA ROBERTSON MD, Ot Z79.4 [employer] (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 OF INSULIN 10/12/2018 ADA ROBERTSON [...] DYSURIA 10/13/2018 ADA ROBERTSON MD, Ot Z79.4 SKILLED NURSING (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 OF INSULIN 10/13/2018 ADA ROBERTSON [...] SMO 11/25/2018 MYRIAM REESE MD, Ot Z79.4 SKILLED NURSING (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 OF INSULIN 11/25/2018 MYRIAM REESE [...] SMO 11/29/2018 MYRIAM REESE MD, Ot Z79.4 SKILLED NURSING (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 OF INSULIN 11/29/2018 MYRIAM REESE [...] 02/02/2019 LUBIN DO, REBECA L Ot Z79.4 SKILLED NURSING (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 OF INSULIN 02/02/2019 LUBIN DO, [...] DISC DEGENERATION AT C5-C 02/07/2019 LUBIN DO, RBEECA L Ot B19.2 0 UNSPECIFIED VIRAL HEPATITIS [...] 02/07/2019 LUBIN DO, REBECA L Ot Z79.4 SKILLED NURSING (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 OF INSULIN 02/07/2019 LUBIN DO, [...] 03/16/2019 ROVENSTINE DO, ALDO Ashish Ot Z79.4 [employer] (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 OF INSULIN 03/16/2019 ROVENSTINE DO, [...] SMO 03/18/2019 MYRIAM REESE MD, Ot Z79.4 [employer] (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 OF INSULIN 03/18/2019 MYRIAM REESE [...] 03/20/2019 ROVENSTINE DO ALDO L Ot Z79.4 SKILLED NURSING (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 OF INSULIN 03/20/2019 ROVENSTINE DO, [...] PAIN IN RIGHT HIP 04/21/2019 MARGARET VEGA, RGEINA Del Valle Ot M25.552 PAIN IN LEFT HIP 04/21/2019 MARGARET VEGA, REGINA Del Valle Ot Z77. 22 CNTCT W AND EXPSR TO ENVIRON TOBACCO SMO 04/21/2019 MARGARET VEGA, REGINA Del Valle Ot Z79. 4 [employer] (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 OF INSULIN 04/21/2019 MARGARET VEGA, [...] HEPATITIS C WITHOUT HE 04/27/2019 MARGARET VEGA, ERGINA Del Valle Ot E11. 9 TYPE 2 [...] MARGARET VEGA, REGINA Eligio Ot Z79. 4 [employer] (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 OF INSULIN 04/27/2019 MARGARET VEGA, [...] 07/30/2019 SANDOV[place] DO, KELLY Méndez Ot Z79.4 [employer] (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 OF INSULIN 07/30/2019 SANDOVAL DO, KELLY Méndez Ot Z79.8 99 OTHER [employer] (CURRENT) DRUG THERAPY 07/30/2019 SANDOVAL DO, KELLY [...] KELLY Méndez Ot K31.8 4 GASTROPARESIS 08/02/2019 [place] DO, KELLY Méndez Ot R10.9 UNSPECIFIED ABDOMINAL PAIN 08/02/2019 [place] DO, KELLY Méndez Ot Z79.4 SKILLED NURSING (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 OF INSULIN 08/02/2019 [place] DO, KELLY Méndez Ot Z79.8 99 OTHER SKILLED NURSING (CURRENT) DRUG THERAPY 08/02/2019 [place] DO, KELLY Méndez Ot Z87.8 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 HISTORY OF NICOTINE DEPENDENCE 08/02/2019 [place] DO, KELLY Méndez Ot Z88.2 ALLERGY STATUS TO SULFONAMIDES STATUS 08/02/2019 [place] DO, KELLY Méndez Ot Z88.5 ALLERGY STATUS TO NARCOTIC AGENT STATUS 08/02/2019 [place] DO, KELLY Méndez Ot Z88.8 ALLERGY STATUS TO OTH DRUG/MEDS/BIOL SUB 08/02/2019 [place] DO, KELLY Méndez Ot Z91.0 40 LATEX ALLERGY STATUS 08/02/2019 [facility], KELLY Méndez Ot Z93.1 GASTROSTOMY STATUS 08/06/2019 SELF GLORY VEGA Ot K59.00 CONSTIPATION, UNSPECIFIED 08/06/2019 SELF GLORY VEGA Ot Z93.4 OTHER ARTIFICIAL OPENINGS OF GASTROINTES 08/07/2019 SHAE PICHARDO MD Ot B19.20 UNSPECIFIED VIRAL HEPATITIS C WITHOUT HE 08/07/2019 SHAE PICHARDO MD Ot E11.43 TYPE 2 DIABETES W DIABETIC AUTONOMIC (PO 08/07/2019 SHAE PICHARDO MD, Ot F25.9 SCHIZOAFFECTIVE DISORDER, UNSPECIFIED 08/07/2019 SHAE PICHARDO MD Ot F32.9 MAJOR DEPRESSIVE DISORDER, SINGLE EPISOD 08/07/2019 SHAE PICHARDO MD, Ot F41.9 ANXIETY DISORDER, UNSPECIFIED 08/07/2019 SHAE PICHARDO MD, Ot J45.909 UNSPECIFIED ASTHMA, UNCOMPLICATED 08/07/2019 SHAE PICHARDO MD Ot K21.9 GASTRO-ESOPHAGEAL REFLUX DISEASE WITHOUT 08/07/2019 SHAE PICHARDO MD Ot K59.00 CONSTIPATION, UNSPECIFIED 08/07/2019 SHAE PICHARDO MD, Ot R11.2 NAUSEA WITH VOMITING, UNSPECIFIED 08/07/2019 SHAE PICHARDO MD Ot Z76.5 MALINGERER [CONSCIOUS SIMULATION] 08/07/2019 SHAE PICHARDO MD, Ot Z79.4 SKILLED NURSING (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 OF INSULIN 08/07/2019 SHAE PICHARDO MD Ot Z79.899 OTHER SKILLED NURSING (CURRENT) DRUG THERAPY 08/07/2019 SHAE PICHARDO MD Ot Z88.2 ALLERGY STATUS TO SULFONAMIDES STATUS 08/07/2019 SHAE PICHARDO MD Ot Z88.5 ALLERGY STATUS TO NARCOTIC AGENT STATUS 08/07/2019 SHAE PICHARDO MD Ot Z88.8 ALLERGY STATUS TO OTH DRUG/MEDS/BIOL SUB 08/07/2019 SHAE PICHARDO MD Ot Z91.040 LATEX ALLERGY STATUS 08/07/2019 SHAE PICHARDO MD Ot Z91.048 OTHER NONMEDICINAL SUBSTANCE ALLERGY STA 10/24/2019 SURESH RUIZ MD Ot K31.84 GASTROPARESIS 10/31/2019 SURESH RUIZ MD Ot K31.84 GASTROPARESIS 10/31/2019 SURESH RUIZ MD Ot F19.90 OTHER PSYCHOACTIVE SUBSTANCE USE, UNSPEC 10/31/2019 SURESH RUIZ MD Ot K31.84 GASTROPARESIS Procedures Code Description Performed By Per formed On [id number] EX CISION OF STOMACH, PYLORUS, ENDO, DIAG [...] 7-25 CREATININE 0.79 mg/dL 0.50-1.10 eGFR NON-AFR. MALTESE 92 mL/min/1.73m2 > OR = 60 eGFR [...] blood basophil count (count/volume) 0.0 10*3/uL 0.0-0.1 - 11/23/18 11:34 GLUCOSE 224 mg/dL 65-99 UREA NITROGEN (BUN) 9 mg/dL 7-25 CREATININE 0.89 mg/dL 0.50-1.10 eGFR NON-AFR. MALTESE 79 mL/min/1.73m2 > OR = 60 eGFR [...] NRG STATEMENT OF ADEQUACY: NRG INTERPRETATION/RESULT: NRG NEUROLOGY PROFESSOR: NRG COMMENT NRG C-PEPTIDE, SERUM - 03/05/19 [...] 21 U/L 8-78 Comprehensive metabolic panel - 12/28/19 12:58 Serum or plasma sodium measurement (moles/volume) [...] <1.00 HCV RNA, QUANTITATIVE REAL TIME PCR [id number] IU/mL NOT DETECTED HCV RNA, QUANTITATIVE REAL [...] GGT 22 U/L 3-55 ALT 8 U/L 6 REFERENCE ID [id number] NRG FOOTNOTE SEE NOTE NRG HEP C, [...] TYPE NATRIURETIC PEPTIDE (BNP) 39 pg/mL <100 Complete urinalysis with reflex to cultu re - 08/06/19 14:05 Urine color determination YELLOW NRG Urine clarity determination CLEAR NR G Urine pH measurement by test strip 8.0 5-9 Specific gravity of urine by test [...] NO NRG Urine drug screening test - 08/06/19 14: 05 Urine phencyclidine detection by screening method [...] method NEGA TIVE NEGATIVE Urine oxycodone detection POSITIVE NEGA TIVE Urine propoxyphene detection NEGATIVE N EGATIVE Complete blood count (CBC) with automate d white blood cell (WBC) differential - 08/06/19 14:20 Blood leukocytes automated count (number/volume) 16.0 10*3/uL 4.3-11.0 Blood erythrocytes automated count (number/volume) 4.55 10*6/uL 4.35-5.85 Venous blood hemoglobin measurement (mass/volume) 14.5 g/dL 11.5-16.0 Blood hematocrit (volume fraction) 41 % 35-52 Automated erythrocyte mean corpuscular volume 90 [ foz_us] 80-99 Automated erythrocyte mean corpuscular h emoglobin (mass per erythrocyte) 32 pg 25-34 Automated erythrocyte mean corpuscular h emoglobin concentration measurement (mass/volume) 35 g/dL 32-36 Automated erythrocyte distribution width ratio 12. 5 % 10.0- 14.5 Automated blood platelet count (count/volume) 267 10*3/uL 130-400 Automated blood platelet mean volume measurement 8.9 [foz_us] 7.4-10.4 Automated blood neutrophils/100 leukocytes 83 % 42-75 Automated blood lymphocytes/100 leukocytes 10 % 12-44 Blood monocytes/100 leukocytes 5 % 0-12 Automated blood eosinophils/100 leukocytes 1 % 0-10 Automated blood basophils/100 leukocytes 0 % 0-10 Blood neutrophils automated count (number/volume) 13.4 10*3 1.8-7.8 Blood lymphocytes automated count (number/volume) 1.5 10*3 1.0-4.0 Blood monocytes automated count (number/volume) 0. 9 10*3 0.0-1.0 Automated eosinophil count 0.2 10*3/uL 0 .0-0.3 Automated blood basophil count (count/volume) 0.0 10*3/uL 0.0-0.1 Comprehensive metabolic panel - 08/06/19 14:20 Serum or plasma sodium measurement (moles/volume) 137 mmol/L 135-145 Serum or plasma potassium measurement (moles/volume) 4.0 mmol/L 3.6-5.0 Serum or plasma chloride measurement (moles/volume) 99 mmol/L 98-107 Carbon dioxide 26 mmol/L 21-32 Serum or plasma anion gap determination (moles/volume) 12 mmol/L 5-14 Serum or plasma urea nitrogen measurement (mass/volume ) 8 mg/dL 7-18 Serum or plasma creatinine measurement (mass/volume) 0.62 mg/dL 0.60-1.30 Serum or plasma urea nitrogen/creatinine mass ratio 13 NRG Serum or plasma creatinine measurement w ith calculation of estimated glomerular filtration rate > NRG Serum or plasma glucose measurement (mass/volume) 183 mg/dL 70-105 Serum or plasma calcium measurement (mass/volume) 9.7 mg/dL 8.5-10.1 Serum or plasma total bilirubin measurement (mass/volu me) 0.6 mg/dL 0.1-1.0 Serum or plasma alkaline phosphatase bridger surement (enzymatic activity/volume) 59 U/L 40-136 Serum or plasma aspartate aminotransfera se measurement (enzymatic activity/volume) 13 U/L 5-34 Serum or plasma alanine aminotransferase measurement (enzymatic activity/volume) 7 U/L 0-55 Serum or plasma protein measurement (mass/volume) 7.3 g/dL 6.4-8.2 Serum or plasma albumin measurement (mass/volume) 3.9 g/dL 3.2-4.5 CALCIUM CORRECTED 9.8 mg/dL 8.5-10.1 Serum or plasma amylase measurement (enz ymatic activity/volume) - 08/06/19 14:20 Serum or plasma amylase measurement (enzymatic activit y/volume) 167 U/L 25-125 Lipase - 08/06/19 14:20 Lipase 42 U/L 8-78 Manual absolute plasma cell count - 07/24 07/12 14:20 Blood monocytes/100 leukocytes 7 % NRG Manual blood segmented neutrophils/100 leukocytes 75 % NRG Blood band neutrophils/100 leukocytes 0 % NRG Manual blood lymphocytes/100 leukocytes 17 % NRG Manual eosinophils/100 leukocytes in nose 1 % NRG Manual blood basophils/100 leukocytes 0 % NRG Blood erythrocyte morphology finding identification NORMAL NRG CULTURE, ANAEROBIC - 08/09/19 15:04 CULTURE, ANAEROBIC BACTERIA W/GRAM STAIN SEE NOTE NRG CMP - 09/11/19 13:19 GLUCOSE 304 mg/dL 65-99 UREA NITROGEN (BUN) 10 mg/dL 7-25 CREATININE 0.64 mg/dL 0.50-1.10 eGFR NON-AFR. MALTESE 109 mL/min/1.73m2 > OR = 60 eGFR 126 mL/min/1.73m2 > OR = 60 BUN/CREATININE RATIO NOT APPLICABLE (calc) 6-22 SODIUM 135 mmol/L 135-146 POTASSIUM 4.4 mmol/L 3.5-5.3 CHLORIDE 101 mmol/L 98-110 CARBON DIOXIDE 23 mmol/L 20-32 CALCIUM 9.2 mg/dL 8.6-10.2 PROTEIN, TOTAL 6.9 g/dL 6.1-8.1 ALBUMIN 3.8 g/dL 3.6-5.1 GLOBULIN 3.1 g/dL (calc) 1.9-3.7 ALBUMIN/GLOBULIN RATIO 1.2 (calc) 1.0-2. 5 BILIRUBIN, TOTAL 0.4 mg/dL 0.2-1.2 ALKALINE PHOSPHATASE 89 U/L 31-125 AST 34 U/L 10-30 ALT 29 U/L 6- CMP - 10/08/19 14:48 GLUCOSE 169 mg/dL 65-99 UREA NITROGEN (BUN) 9 mg/dL 7-25 CREATININE 0.71 mg/dL 0.50-1.10 eGFR NON-AFR. MALTESE 104 mL/min/1.73m2 > OR = 60 eGFR 120 mL/min/1.73m2 > OR = 60 BUN/CREATININE RATIO NOT APPLICABLE (calc) 6-22 SODIUM 139 mmol/L 135-146 POTASSIUM 3.8 mmol/L 3.5-5.3 CHLORIDE 108 mmol/L 98-110 CARBON DIOXIDE 18 mmol/L 20-32 CALCIUM 9.2 mg/dL 8.6-10.2 PROTEIN, TOTAL 6.8 g/dL 6.1-8.1 ALBUMIN 3.8 g/dL 3.6-5.1 GLOBULIN 3.0 g/dL (calc) 1.9-3.7 ALBUMIN/GLOBULIN RATIO 1.3 (calc) 1.0-2. 5 BILIRUBIN, TOTAL 0.3 mg/dL 0.2-1.2 ALKALINE PHOSPHATASE 82 U/L 31-125 AST 21 U/L 10-30 ALT 18 U/L 6- CBC w/MANUAL DIFF - 10/08/19 14:48 WHITE BLOOD CELL COUNT 9.1 Thousand/uL 3 .8-10.8 RED BLOOD CELL COUNT 4.69 Million/uL 3.8 0-5.10 HEMOGLOBIN 15.3 g/dL 11.7-15.5 HEMATOCRIT 45.5 % 35.0-45.0 MCV 97.0 fL 80.0-100.0 MCH 32.6 pg 27.0-33.0 MCHC 33.6 g/dL 32.0-36.0 RDW 12.9 % 11.0-15.0 PLATELET COUNT 160 Thousand/uL 140-400 MPV 11.2 fL 7.5-12.5 ABSOLUTE NEUTROPHILS 6743 cells/uL 1500- 7800 ABSOLUTE MONOCYTES 592 cells/uL 200-950 ABSOLUTE EOSINOPHILS 82 cells/uL 15-500 ABSOLUTE BASOPHILS 0 cells/uL 0-200 NEUTROPHILS 74.1 % NRG LYMPHOCYTES 18.5 % NRG MONOCYTES 6.5 % NRG EOSINOPHILS 0.9 % NRG BASOPHILS 0 % NRG ABSOLUTE LYMPHOCYTES 1684 cells/uL 850-3 900 PLATELET ESTIMATION ADEQUATE ADEQUATE PREALBUMIN - 10/08/19 14:48 PREALBUMIN 20 mg/dL 17-34 AMYLASE - 10/12/19 13:13 AMYLASE 63 U/L 21-101 Whole blood basic metabolic panel - 09/24 01/12 08:30 Serum or plasma sodium measurement (moles/volume) 139 mmol/L 135-145 Serum or plasma potassium measurement (moles/volume) 3.9 mmol/L 3.6-5.0 Serum or plasma chloride measurement (moles/volume) 100 mmol/L 98-107 Carbon dioxide 24 mmol/L 21-32 Serum or plasma anion gap determination (moles/volume) 15 mmol/L 5-14 Serum or plasma urea nitrogen measurement (mass/volume ) 14 mg/dL 7-18 Serum or plasma creatinine measurement (mass/volume) 0.63 mg/dL 0.60-1.30 Serum or plasma urea nitrogen/creatinine mass ratio 22 NRG Serum or plasma creatinine measurement w ith calculation of estimated glomerular filtration rate > NRG Serum or plasma glucose measurement (mass/volume) 197 mg/dL 70-105 Serum or plasma calcium measurement (mass/volume) 9.3 mg/dL 8.5-10.1 Serum or plasma phosphate measurement (m ass/volume) - 10/22/19 08:30 Serum or plasma phosphate measurement (mass/volume) 3.9 mg/dL 2.3-4.7 Magnesium - 10/22/19 08:30 Magnesium 2.0 mg/dL 1.6-2.4 Complete blood count (CBC) with automate d white blood cell (WBC) differential - 10/29/19 08:30 Blood leukocytes automated count (number/volume) 8.0 10*3/uL 4.3-11.0 Blood erythrocytes automated count (number/volume) 4.63 10*6/uL 4.35-5.85 Venous blood hemoglobin measurement (mass/volume) 15.4 g/dL 11.5-16.0 Blood hematocrit (volume fraction) 45 % 35-52 Automated erythrocyte mean corpuscular volume 96 [ foz_us] 80-99 Automated erythrocyte mean corpuscular h emoglobin (mass per erythrocyte) 33 pg 25-34 Automated erythrocyte mean corpuscular h emoglobin concentration measurement (mass/volume) 35 g/dL 32-36 Automated erythrocyte distribution width ratio 13. 2 % 10.0- 14.5 Automated blood platelet count (count/volume) 197 10*3/uL 130-400 Automated blood platelet mean volume measurement 10.4 [foz_us] 7.4-10.4 Automated blood neutrophils/100 leukocytes 70 % 42-75 Automated blood lymphocytes/100 leukocytes 21 % 12-44 Blood monocytes/100 leukocytes 7 % 0-12 Automated blood eosinophils/100 leukocytes 1 % 0-10 Automated blood basophils/100 leukocytes 0 % 0-10 Blood neutrophils automated count (number/volume) 5.6 10*3 1.8-7.8 Blood lymphocytes automated count (number/volume) 1.7 10*3 1.0-4.0 Blood monocytes automated count (number/volume) 0. 6 10*3 0.0-1.0 Automated eosinophil count 0.1 10*3/uL 0 .0-0.3 Automated blood basophil count (count/volume) 0.0 10*3/uL 0.0-0.1 Serum or plasma phosphate measurement (m ass/volume) - 10/29/19 08:30 Serum or plasma phosphate measurement (mass/volume) 4.1 mg/dL 2.3-4.7 Comprehensive metabolic panel - 10/29/19 08:30 Serum or plasma sodium measurement (moles/volume) 140 mmol/L 135-145 Serum or plasma potassium measurement (moles/volume) 3.7 mmol/L 3.6-5.0 Serum or plasma chloride measurement (moles/volume) 102 mmol/L 98-107 Carbon dioxide 24 mmol/L 21-32 Serum or plasma anion gap determination (moles/volume) 14 mmol/L 5-14 Serum or plasma urea nitrogen measurement (mass/volume ) 11 mg/dL 7-18 Serum or plasma creatinine measurement (mass/volume) 0.70 mg/dL 0.60-1.30 Serum or plasma urea nitrogen/creatinine mass ratio 16 NRG Serum or plasma creatinine measurement w ith calculation of estimated glomerular filtration rate > NRG Serum or plasma glucose measurement (mass/volume) 205 mg/dL 70-105 Serum or plasma calcium measurement (mass/volume) 9.1 mg/dL 8.5-10.1 Serum or plasma total bilirubin measurement (mass/volu me) 0.2 mg/dL 0.1-1.0 Serum or plasma alkaline phosphatase bridger surement (enzymatic activity/volume) 98 U/L 40-136 Serum or plasma aspartate aminotransfera se measurement (enzymatic activity/volume) 35 U/L 5-34 Serum or plasma alanine aminotransferase measurement (enzymatic activity/volume) 32 U/L 0-55 Serum or plasma protein measurement (mass/volume) 6.8 g/dL 6.4-8.2 Serum or plasma albumin measurement (mass/volume) 3.6 g/dL 3.2-4.5 CALCIUM CORRECTED 9.4 mg/dL 8.5-10.1 Magnesium - 10/29/19 08:30 Magnesium 1.8 mg/dL 1.6-2.4 Blood CBC with ordered manual differenti al panel - 11/05/19 10:30 Blood leukocytes automated count (number/volume) 7.3 10*3/uL 4.3-11.0 Blood erythrocytes automated count (number/volume) 4.50 10*6/uL 4.35-5.85 Venous blood hemoglobin measurement (mass/volume) 14.8 g/dL 11.5-16.0 Blood hematocrit (volume fraction) 43 % 35-52 Automated erythrocyte mean corpuscular volume 96 [ foz_us] 80-99 Automated erythrocyte mean corpuscular h emoglobin (mass per erythrocyte) 33 pg 25-34 Automated erythrocyte mean corpuscular h emoglobin concentration measurement (mass/volume) 34 g/dL 32-36 Automated erythrocyte distribution width ratio 13. 0 % 10.0- 14.5 Automated blood platelet count (count/volume) 178 10*3/uL 130-400 Automated blood platelet mean volume measurement 10.8 [foz_us] 7.4-10.4 Automated blood neutrophils/100 leukocytes 75 % 42-75 Automated blood lymphocytes/100 leukocytes 17 % 12-44 Blood monocytes/100 leukocytes 5 % NRG Automated blood eosinophils/100 leukocytes 1 % 0-10 Automated blood basophils/100 leukocytes 0 % 0-10 Blood neutrophils automated count (number/volume) 5.5 10*3 1.8-7.8 Blood lymphocytes automated count (number/volume) 1.2 10*3 1.0-4.0 Blood monocytes automated count (number/volume) 0. 5 10*3 0.0-1.0 Automated eosinophil count 0.1 10*3/uL 0 .0-0.3 Automated blood basophil count (count/volume) 0.0 10*3/uL 0.0-0.1 Manual blood segmented neutrophils/100 leukocytes 76 % NRG Manual blood lymphocytes/100 leukocytes 19 % NR Blood erythrocyte morphology finding identification NORMAL [facility] Comprehensive metabolic panel - 11/05/19 10:30 Serum or plasma sodium measurement (moles/volume) 140 mmol/L 135-145 Serum or plasma potassium measurement (moles/volume) 3.8 mmol/L 3.6-5.0 Serum or plasma chloride measurement (moles/volume) 105 mmol/L 98-107 Carbon dioxide 24 mmol/L 21-32 Serum or plasma anion gap determination (moles/volume) 11 mmol/L 5-14 Serum or plasma urea nitrogen measurement (mass/volume ) 11 mg/dL 7-18 Serum or plasma creatinine measurement (mass/volume) 0.69 mg/dL 0.60-1.30 Serum or plasma urea nitrogen/creatinine mass ratio 16 NRG Serum or plasma creatinine measurement w ith calculation of estimated glomerular filtration rate > NRG Serum or plasma glucose measurement (mass/volume) 276 mg/dL 70-105 Serum or plasma calcium measurement (mass/volume) 9.1 mg/dL 8.5-10.1 Serum or plasma total bilirubin measurement (mass/volu me) 0.3 mg/dL 0.1-1.0 Serum or plasma alkaline phosphatase bridger surement (enzymatic activity/volume) 89 U/L 40-136 Serum or plasma aspartate aminotransfera se measurement (enzymatic activity/volume) 39 U/L 5-34 Serum or plasma alanine aminotransferase measurement (enzymatic activity/volume) 34 U/L 0-55 Serum or plasma protein measurement (mass/volume) 6.8 g/dL 6.4-8.2 Serum or plasma albumin measurement (mass/volume) 3.6 g/dL 3.2-4.5 CALCIUM CORRECTED 9.4 mg/dL 8.5-10.1 Magnesium - 11/05/19 10:30 Magnesium 1.8 mg/dL 1.6-2.4 Serum or plasma phosphate measurement (m ass/volume) - 11/05/19 10:30 Serum or plasma phosphate measurement (mass/volume) 3.1 mg/dL 2.3-4.7 Encounters ACCT No. Visit Date/Time Discharge Status Pt. Type Provider Facility Loc./Unit Complaint [id number] 11/06/2019 15:00:00 [facility] [id number] 10/12/2019 11:20:00 Document Registration [id number] 10/08/2019 14:45:00 Document Registration [id number] 09/11/2019 13:15:00 Document Registration [id number] 08/09/2019 15:15:00 Document Registration [id number] 07/23/2019 11:40:00 Document Registration [id number] 07/18/2019 13:15:00 Document Registration [id number] 06/20/2019 10:00:00 Document Registration [id number] 06/04/2019 13:00:00 Document Registration [id number] 03/05/2019 09:30:00 Document Registration [id number] 02/21/2019 09:45:00 Document Registration [id number] 11/23/2018 11:00:00 Document Registration [id number] 09/07/2018 10:30:00 Document Registration [id number] 08/07/2018 12:00:00 Document Registration [id number] 07/20/2018 09:00:00 Document Registration [id number] 11/06/2019 14:03:00 16:00:00 DIS Emergency KYLEE VEGA, SHAE Aguilera [facility] ER FS N/V [id number] 10/29/2019 09:56:00 23:59:59 CLS Outpatient HEJAZI MD, SURESH banks [facility] LAB FS K31.84,USE OF TPN [id number] 10/22/2019 11:01:00 23:59:59 CLS Outpatient SARA VEGA, SURESH banks [facility] LAB FS K31.84 [id number] 08/06/2019 13:48:00 15:41:00 DIS Outpatient KYLEE VEGA, SHAE Aguilera [facility] ER FS ABD PAIN; NAUSEA [id number] 08/03/2019 15:14:00 23:59:59 CLS Outpatient SELF GLORY VEGA [facility] RAD FS JEJUNOSTOMY TUBE PRESEN T [id number] 07/27/2019 15:15:00 17:03:00 DIS Outpatient KELLY SANDOVAL DO Via [facility] ER FS ABD PAIN [id number] 06/04/2019 13:26:00 23:59:59 CLS Outpatient SELF GLORY VEGA [facility] RAD FS K59.01 [id number] 04/21/2019 12:31:00 14:19:00 DIS Emergency REGINA ROBLES MD [facility] ER FS HIP PAIN [id number] 03/18/2019 12:52:00 17:10:00 DIS Emergency MYRIAM REESE MD Via [facility] ER FS VOMITING [id number] 03/16/2019 13:02:00 13:38:00 DIS Emergency ROVENSTINE ALDO AGUIRRE L [facility] ER FS VOMITING [id number] 02/02/2019 14:56:00 17:16:00 DIS Emergency LUBIN REBECA AGUIRRE L [facility] ER FS VOMITING [id number] 11/25/2018 09:16:00 14:50:00 DIS Emergency MYRIAM REESE MD Via [facility] ER FS NAUSEA, VOMITING [id number] 10/09/2018 17:34:00 19:35:00 DIS Emergency AILYN VEGA, ADA Pride [facility] ER FS VOMITING, PAIN WITH URINATION [id number] 10/01/2018 10:50:00 14:15:00 DIS Emergency BRIAN WRIGHT DO Via [facility] ER FS VOMITING [id number] 09/28/2018 08:48:00 11:01:00 DIS Emergency KEMAL VEGA, DONAL Aguilera [facility] ER FS VOMITING; NAUSEA [id number] 09/22/2018 15:47:00 18:20:00 DIS Emergency NICHOL PANDEY DO Via [facility] ER FS VOMITING; BLOOD SUGAR I SSUES [id number] 08/09/2018 14:08:00 16:05:00 DIS Emergency MICHAEL VEGA, IVANA Landaverde [facility] ER FS ABD PAIN/VOMITING ELEV BS [id number] 07/29/2018 08:13:00 11:09:00 DIS Emergency MARGARET VEGA, REGINA Del Valle [facility] ER FS VOMITING [id number] 07/24/2018 08:33:00 11:12:00 DIS Emergency SHAWN VEGA, NIK Bailon [facility] ER FS VOMITING; FACIA L SWELLING [id number] 07/21/2018 12:00:00 13:49:00 DIS Emergency CHRISTINE DECKER DO Via [facility] ER FS VOMITING; HYPERGLYCEMIA [id number] 07/06/2018 10:28:00 23:59:59 CLS Outpatient ESTELA KAUR [facility] RAD FS R52 G57.02 [id number] [id number] 07/04/2018 14:45:00 23:59:59 CLS Outpatient ESTELA KAUR [facility] RAD LT SIDE SCIATICA,BUTTO CK PAIN [id number] 05/19/2018 16:26:00 019 13:00:00 DIS Inpatient RICA VEGA, REGINA Bailon [facility] 4TH CHRONIC N V FOR MONTHS [id number] 11/05/2019 11:27:[address] Outpatient SURESH RUIZ MD Via [facility] LAB FS K31.84
== END 2019-11-06 16:00 | disposition home or self-care (01) ==
LOC: EDUNIT# 14:02 → ER FS 14:03
DX: R11.2 Nausea with vomiting, unspecified (principal); K59.00 Constipation, unspecified; E11.43 Type 2 diabetes mellitus with diabetic autonomic (poly)neuropathy; K31.84 Gastroparesis; J45.909 Unspecified asthma, uncomplicated; K21.9 Gastro-esophageal reflux disease without esophagitis; F41.9 Anxiety disorder, unspecified; F32.9 Major depressive disorder, single episode, unspecified; Z88.8 Allergy status to other drugs, medicaments and biological substances; Z91.040 Latex allergy status; Z88.5 Allergy status to narcotic agent; Z88.2 Allergy status to sulfonamides; Z88.1 Allergy status to other antibiotic agents; Z79.4 Long term (current) use of insulin; Z77.22 Contact with and (suspected) exposure to environmental tobacco smoke (acute) (chronic)
CPT/HCPCS: 36415; 74019; 80053; 80306; 81000; 82805; 83690; 85007; 85027

== ENCOUNTER → 2019-11-19 | Outpatient (CLI) | payer MEDICAID ==
[~2019-11-19] MED LIST changes: +DICY20TA10 PO
[2019-11-19 19:22] LABS: BASOPHILS % (AUTO) 0 % (0-10); EOSINOPHILS % (AUTO) 1 % (0-10); HEMATOCRIT 47 % (35-52); HEMOGLOBIN 16.2 G/DL (11.5-16.0); LYMPHOCYTES % (AUTO) 18 % (12-44); MEAN CORPUSCULAR HEMOGLOBIN 33 PG (25-34); MEAN CORPUSCULAR HGB CONC 35 G/DL (32-36); MEAN CORPUSCULAR VOLUME 94 FL (80-99); MEAN PLATELET VOLUME 11.3 FL (7.4-10.4); MONOCYTES % (AUTO) 8 % (0-12); NEUTROPHILS % (AUTO) 73 % (42-75); PLATELET COUNT 338 10^3/uL (130-400); RED CELL DISTRIBUTION WIDTH 13.1 % (10.0-14.5); WHITE BLOOD COUNT 19.5 10^3/uL (4.3-11.0)
[2019-11-19 19:23] LABS: BASOPHILS # (AUTO) 0.1 10^3/uL (0.0-0.1); EOSINOPHILS # (AUTO) 0.1 10^3/uL (0.0-0.3); LYMPHOCYTES # (AUTO) 3.6 X 10^3 (1.0-4.0); MONOCYTES # (AUTO) 1.6 X 10^3 (0.0-1.0); NEUTROPHILS # (AUTO) 14.2 X 10^3 (1.8-7.8)
[2019-11-19 19:36] LABS: BAND NEUTROPHILS 0 %; BASOPHILS % (MANUAL) 0 %; EOSINOPHILS % (MANUAL) 0 %; LYMPHOCYTES % (MANUAL) 21 %; MONOCYTES % (MANUAL) 5 %; NEUTROPHILS % (MANUAL) 74 %
[2019-11-19 19:45] LABS: ALANINE AMINOTRANSFERASE 24 U/L (0-55); ALKALINE PHOSPHATASE 72 U/L (40-136); BILIRUBIN,TOTAL 0.6 MG/DL (0.1-1.0); BUN/CREATININE RATIO 29; CALCIUM 10.5 MG/DL (8.5-10.1); CARBON DIOXIDE 18 MMOL/L (21-32); CHLORIDE 99 MMOL/L (98-107); CREATININE SERUM 0.83 MG/DL (0.60-1.30); GFR ESTIMATED > 60; GLUCOSE 208 MG/DL (70-105); MAGNESIUM 1.9 MG/DL (1.6-2.4); POTASSIUM 4.1 MMOL/L (3.6-5.0); SODIUM 136 MMOL/L (135-145); TOTAL PROTEIN 8.5 GM/DL (6.4-8.2)
[2019-11-19 19:46] LABS: ALBUMIN 4.6 GM/DL (3.2-4.5)
[2019-11-19 22:24] LABS: PHOSPHORUS 3.5 MG/DL (2.3-4.7)
== END ==
LOC: LAB FS 18:18
PROVIDERS: ATTEND Internal Medicine
DX: K31.84 Gastroparesis (principal); E78.5 Hyperlipidemia, unspecified
CPT/HCPCS: 36415; 80053; 83735; 84100; 85007; 85027

== ENCOUNTER → 2019-11-26 | Outpatient (CLI) | payer MEDICAID ==
[2019-11-26 11:58] LABS: HEMATOCRIT 43 % (35-52); HEMOGLOBIN 14.4 G/DL (11.5-16.0); MEAN CORPUSCULAR HEMOGLOBIN 33 PG (25-34); MEAN CORPUSCULAR HGB CONC 34 G/DL (32-36); MEAN CORPUSCULAR VOLUME 96 FL (80-99); PLATELET COUNT 218 10^3/uL (130-400); RED CELL DISTRIBUTION WIDTH 13.1 % (10.0-14.5); WHITE BLOOD COUNT 7.2 10^3/uL (4.3-11.0)
[2019-11-26 11:59] LABS: BASOPHILS % (AUTO) 0 % (0-10); EOSINOPHILS # (AUTO) 0.1 10^3/uL (0.0-0.3); EOSINOPHILS % (AUTO) 1 % (0-10); LYMPHOCYTES # (AUTO) 1.3 X 10^3 (1.0-4.0); LYMPHOCYTES % (AUTO) 18 % (12-44); MONOCYTES # (AUTO) 0.5 X 10^3 (0.0-1.0); MONOCYTES % (AUTO) 6 % (0-12); NEUTROPHILS # (AUTO) 5.3 X 10^3 (1.8-7.8); NEUTROPHILS % (AUTO) 74 % (42-75)
[2019-11-26 12:26] LABS: BUN/CREATININE RATIO 16; CALCIUM 9.3 MG/DL (8.5-10.1); CARBON DIOXIDE 26 MMOL/L (21-32); CHLORIDE 104 MMOL/L (98-107); GFR ESTIMATED > 60; GLUCOSE 185 MG/DL (70-105); POTASSIUM 4.2 MMOL/L (3.6-5.0); SODIUM 141 MMOL/L (135-145)
[2019-11-26 12:27] LABS: ALANINE AMINOTRANSFERASE 15 U/L (0-55); ALBUMIN 3.7 GM/DL (3.2-4.5); ALKALINE PHOSPHATASE 72 U/L (40-136); BILIRUBIN,TOTAL 0.2 MG/DL (0.1-1.0); MAGNESIUM 1.5 MG/DL (1.6-2.4)
[2019-11-26 15:26] LABS: PHOSPHORUS 2.8 MG/DL (2.3-4.7)
== END ==
LOC: LAB FS 10:50
PROVIDERS: ATTEND Internal Medicine
DX: E11.43 Type 2 diabetes mellitus with diabetic autonomic (poly)neuropathy (principal); K31.84 Gastroparesis
CPT/HCPCS: 36415; 80053; 83735; 84100; 85025

== ENCOUNTER → 2019-12-10 | Outpatient (CLI) | payer MEDICAID ==
[2019-12-10 18:13] LABS: HEMATOCRIT 39 % (35-52); HEMOGLOBIN 13.3 G/DL (11.5-16.0); MEAN CORPUSCULAR HEMOGLOBIN 33 PG (25-34); MEAN CORPUSCULAR VOLUME 96 FL (80-99); WHITE BLOOD COUNT 8.2 10^3/uL (4.3-11.0)
[2019-12-10 18:14] LABS: BASOPHILS % (AUTO) 0 % (0-10); EOSINOPHILS # (AUTO) 0.1 10^3/uL (0.0-0.3); EOSINOPHILS % (AUTO) 1 % (0-10); LYMPHOCYTES # (AUTO) 2.1 X 10^3 (1.0-4.0); LYMPHOCYTES % (AUTO) 26 % (12-44); MEAN CORPUSCULAR HGB CONC 34 G/DL (32-36); MEAN PLATELET VOLUME 10.9 FL (7.4-10.4); MONOCYTES # (AUTO) 0.7 X 10^3 (0.0-1.0); MONOCYTES % (AUTO) 8 % (0-12); NEUTROPHILS # (AUTO) 5.4 X 10^3 (1.8-7.8); NEUTROPHILS % (AUTO) 65 % (42-75); PLATELET COUNT 211 10^3/uL (130-400); RED CELL DISTRIBUTION WIDTH 13.1 % (10.0-14.5)
[2019-12-10 18:45] LABS: SODIUM 137 MMOL/L (135-145)
[2019-12-10 18:46] LABS: ALANINE AMINOTRANSFERASE 42 U/L (0-55); ALBUMIN 3.8 GM/DL (3.2-4.5); ALKALINE PHOSPHATASE 55 U/L (40-136); BILIRUBIN,TOTAL 0.3 MG/DL (0.1-1.0); BUN/CREATININE RATIO 24; CALCIUM 9.3 MG/DL (8.5-10.1); CARBON DIOXIDE 24 MMOL/L (21-32); CHLORIDE 102 MMOL/L (98-107); CREATININE SERUM 0.72 MG/DL (0.60-1.30); GFR ESTIMATED > 60; GLUCOSE 112 MG/DL (70-105); MAGNESIUM 1.8 MG/DL (1.6-2.4); TOTAL PROTEIN 7.1 GM/DL (6.4-8.2)
[2019-12-10 22:10] LABS: PHOSPHORUS 4.1 MG/DL (2.3-4.7)
== END ==
LOC: LAB FS 17:17
PROVIDERS: ATTEND Internal Medicine
DX: Z01.89 Encounter for other specified special examinations (principal)
CPT/HCPCS: 36415; 80053; 83735; 84100; 85025

== ENCOUNTER → 2019-12-17 | Outpatient (CLI) | payer MEDICAID ==
--- NOTE | 2019-12-17 10:30 | Diagnostic Imaging Report ---
INDICATION: Bilateral foot pain. TIME OF EXAM: 10:01 AM. TECHNIQUE: Three views of each foot were obtained. FINDINGS: The metatarsals appear to be intact bilaterally. No periosteal reaction or stress reaction is identified. The phalanges appear to be intact. The midfoot and hindfoot are unremarkable. No fractures are seen. IMPRESSION: No acute abnormality is detected. Dictated by: Dictated on workstation # [id number]
== END ==
LOC: RAD FS 09:44
PROVIDERS: ATTEND Nurse Practitioner Family
DX: M79.671 Pain in right foot (principal); M79.672 Pain in left foot; L84 Corns and callosities; E11.69 Type 2 diabetes mellitus with other specified complication

== ENCOUNTER → 2019-12-17 | Outpatient (CLI) | payer MEDICAID ==
[2019-12-17 16:12] LABS: ALANINE AMINOTRANSFERASE 29 U/L (0-55); ALKALINE PHOSPHATASE 66 U/L (40-136); BILIRUBIN,TOTAL 0.2 MG/DL (0.1-1.0); BUN/CREATININE RATIO 16; CALCIUM 9.7 MG/DL (8.5-10.1); CARBON DIOXIDE 26 MMOL/L (21-32); CHLORIDE 103 MMOL/L (98-107); CREATININE SERUM 0.76 MG/DL (0.60-1.30); GFR ESTIMATED > 60; GLUCOSE 162 MG/DL (70-105); MAGNESIUM 1.8 MG/DL (1.6-2.4); POTASSIUM 3.8 MMOL/L (3.6-5.0); SODIUM 140 MMOL/L (135-145)
[2019-12-17 16:13] LABS: ALBUMIN 3.8 GM/DL (3.2-4.5); TOTAL PROTEIN 7.3 GM/DL (6.4-8.2)
[2019-12-17 16:21] LABS: BASOPHILS % (AUTO) 0 % (0-10); EOSINOPHILS # (AUTO) 0.1 10^3/uL (0.0-0.3); EOSINOPHILS % (AUTO) 1 % (0-10); HEMATOCRIT 42 % (35-52); HEMOGLOBIN 14.2 G/DL (11.5-16.0); LYMPHOCYTES % (AUTO) 24 % (12-44); MEAN CORPUSCULAR HEMOGLOBIN 33 PG (25-34); MEAN CORPUSCULAR HGB CONC 34 G/DL (32-36); MEAN CORPUSCULAR VOLUME 97 FL (80-99); MEAN PLATELET VOLUME 10.8 FL (7.4-10.4); MONOCYTES # (AUTO) 0.5 X 10^3 (0.0-1.0); MONOCYTES % (AUTO) 6 % (0-12); NEUTROPHILS # (AUTO) 5.8 X 10^3 (1.8-7.8); NEUTROPHILS % (AUTO) 69 % (42-75); PLATELET COUNT 207 10^3/uL (130-400); RED CELL DISTRIBUTION WIDTH 12.7 % (10.0-14.5); WHITE BLOOD COUNT 8.3 10^3/uL (4.3-11.0)
[2019-12-17 22:19] LABS: PHOSPHORUS 3.6 MG/DL (2.3-4.7)
== END ==
LOC: LAB FS 15:32
PROVIDERS: ATTEND Internal Medicine
DX: K31.84 Gastroparesis (principal); J44.9 Chronic obstructive pulmonary disease, unspecified
CPT/HCPCS: 36415; 80053; 83735; 84100; 85025

== ENCOUNTER → 2019-12-24 | Outpatient (CLI) | payer MEDICAID ==
[2019-12-24 12:19] LABS: BASOPHILS % (AUTO) 0 % (0-10); EOSINOPHILS % (AUTO) 1 % (0-10); HEMATOCRIT 43 % (35-52); HEMOGLOBIN 14.5 G/DL (11.5-16.0); LYMPHOCYTES # (AUTO) 1.9 X 10^3 (1.0-4.0); LYMPHOCYTES % (AUTO) 29 % (12-44); MEAN CORPUSCULAR HEMOGLOBIN 32 PG (25-34); MEAN CORPUSCULAR HGB CONC 34 G/DL (32-36); MEAN CORPUSCULAR VOLUME 97 FL (80-99); MEAN PLATELET VOLUME 10.6 FL (7.4-10.4); MONOCYTES # (AUTO) 0.5 X 10^3 (0.0-1.0); MONOCYTES % (AUTO) 7 % (0-12); NEUTROPHILS # (AUTO) 4.1 X 10^3 (1.8-7.8); NEUTROPHILS % (AUTO) 62 % (42-75); PLATELET COUNT 197 10^3/uL (130-400); RED CELL DISTRIBUTION WIDTH 12.5 % (10.0-14.5); WHITE BLOOD COUNT 6.5 10^3/uL (4.3-11.0)
[2019-12-24 12:20] LABS: EOSINOPHILS # (AUTO) 0.1 10^3/uL (0.0-0.3)
[2019-12-24 12:35] LABS: ALANINE AMINOTRANSFERASE 32 U/L (0-55); ALBUMIN 3.7 GM/DL (3.2-4.5); ALKALINE PHOSPHATASE 71 U/L (40-136); BILIRUBIN,TOTAL 0.2 MG/DL (0.1-1.0); BUN/CREATININE RATIO 16; CALCIUM 9.3 MG/DL (8.5-10.1); CARBON DIOXIDE 26 MMOL/L (21-32); CHLORIDE 98 MMOL/L (98-107); CREATININE SERUM 0.79 MG/DL (0.60-1.30); GFR ESTIMATED > 60; GLUCOSE 136 MG/DL (70-105); MAGNESIUM 1.6 MG/DL (1.6-2.4); POTASSIUM 3.9 MMOL/L (3.6-5.0); SODIUM 136 MMOL/L (135-145); TOTAL PROTEIN 6.9 GM/DL (6.4-8.2)
== END ==
LOC: LAB FS 11:35
PROVIDERS: ATTEND Family Medicine
DX: E11.43 Type 2 diabetes mellitus with diabetic autonomic (poly)neuropathy (principal); K31.84 Gastroparesis
CPT/HCPCS: 36415; 80053; 83735; 84100; 85025

== ENCOUNTER → 2019-12-31 | Outpatient (CLI) | payer MEDICAID ==
[2019-12-31 11:04] LABS: BASOPHILS # (AUTO) 0.1 10^3/uL (0.0-0.1); BASOPHILS % (AUTO) 1 % (0-10); EOSINOPHILS # (AUTO) 0.1 10^3/uL (0.0-0.3); EOSINOPHILS % (AUTO) 2 % (0-10); HEMATOCRIT 45 % (35-52); HEMOGLOBIN 15.2 G/DL (11.5-16.0); LYMPHOCYTES # (AUTO) 2.4 X 10^3 (1.0-4.0); LYMPHOCYTES % (AUTO) 32 % (12-44); MEAN CORPUSCULAR HEMOGLOBIN 32 PG (25-34); MEAN CORPUSCULAR HGB CONC 34 G/DL (32-36); MEAN CORPUSCULAR VOLUME 96 FL (80-99); MEAN PLATELET VOLUME 10.8 FL (7.4-10.4); MONOCYTES # (AUTO) 0.6 X 10^3 (0.0-1.0); MONOCYTES % (AUTO) 8 % (0-12); NEUTROPHILS # (AUTO) 4.3 X 10^3 (1.8-7.8); NEUTROPHILS % (AUTO) 58 % (42-75); PLATELET COUNT 204 10^3/uL (130-400); WHITE BLOOD COUNT 7.5 10^3/uL (4.3-11.0)
[2019-12-31 11:06] LABS: ALANINE AMINOTRANSFERASE 24 U/L (0-55); ALBUMIN 3.7 GM/DL (3.2-4.5); ALKALINE PHOSPHATASE 80 U/L (40-136); BILIRUBIN,TOTAL 0.2 MG/DL (0.1-1.0); BUN/CREATININE RATIO 15; CALCIUM 9.4 MG/DL (8.5-10.1); CARBON DIOXIDE 26 MMOL/L (21-32); CHLORIDE 105 MMOL/L (98-107); CREATININE SERUM 0.71 MG/DL (0.60-1.30); GFR ESTIMATED > 60; GLUCOSE 112 MG/DL (70-105); MAGNESIUM 1.9 MG/DL (1.6-2.4); SODIUM 143 MMOL/L (135-145)
[2019-12-31 13:44] LABS: PHOSPHORUS 4.3 MG/DL (2.3-4.7)
== END ==
LOC: IHC 10:29
PROVIDERS: ATTEND Internal Medicine
DX: E11.43 Type 2 diabetes mellitus with diabetic autonomic (poly)neuropathy (principal); K31.84 Gastroparesis; I10 Essential (primary) hypertension
CPT/HCPCS: 80053; 83735; 84100; 85025

== ENCOUNTER 2020-01-04 15:32 | Emergency (ER) | payer MEDICAID ==
[~2020-01-04] VITALS: Ht 160 cm; Wt 84.4 kg
[2020-01-04] MEDS ORDERED: NS IV 1000 ML 1,000 ML IV STA (15:45)
--- NOTE | 2020-01-04 15:50 | ED Abdominal Pain ---
General Chief Complaint: Abdominal/GI Problems Stated Complaint: ABD HERNIA Nursing Triage Note: Patient reports she has an abdominal hernia, states she has been in bed for 2 weeks waiting to see her general surgeon on the . Sepsis Screen: No Definite Risk Source of Information: Patient, Old Records, RN/MD, RN Notes Reviewed Exam Limitations: No Limitations History of Present Illness Date Seen by Provider: Jan 04, 2020 Time Seen by Provider: 15:35 Initial Comments This patient presents to the emergency department with complaint of abdominal pain of an incisional epigastric hernia. Patient also wishes to have a urinalysis to check and make sure she doesn't have a urinary tract infection patient also requested blood work to make sure her electrolytes are okay. Patient has an excisional epigastric hernia related to a gastric to that she used to have for feedings. That has been reversed. It removed. Patient is on TPN feedings but is also taking oral medications and food orally. Patient states she has not had any weight loss with her current regimen. Patient states she is wearing 2 fentanyl patches and states that her PCP advise her that she can wear 2. No patches for her pain. Patient does not appear to be acutely sick or ill. The patient does have multiple numerous chronic complaints the patient wishes to have checked. On exam patient does not have a hernia present externally. However you can feel the defect in the abdominal wall. Seems that it spontaneously resolved itself. Patient states she is passing gas and having bowel movements regular. Patient does have a scheduled appointment with her surgeon of record in 1 week. We will do a medical screening exam and evaluate treat further as needed. Timing/Duration: Resolved Prior to Arrival, Constant Severity/Quality: Mild Location: Epigastric, Suprapubic Radiation: No Radiation Allergies and Home Medications Allergies Coded Allergies: adhesive tape (Verified Allergy, Unknown, 09/28/18) chlorhexidine (Verified Allergy, Unknown, 07/29/18) fluvoxamine (Verified Allergy, Unknown, 07/29/18) hydromorphone (Verified Allergy, Unknown, 07/29/18) latex (Verified Allergy, Unknown, 07/29/18) meperidine (Verified Allergy, Unknown, 07/29/18) morphine (Verified Allergy, Unknown, 05/19/18) sulfamethoxazole (Verified Allergy, Unknown, 05/19/18) trimethoprim (Verified Allergy, Unknown, 05/19/18) metoclopramide (Unverified Adverse Reaction, Intermediate, Tardive Dyskinesia, 02/02/19) promethazine (Unverified Adverse Reaction, Intermediate, Tardive Dyskinesia, 02/02/19) Home Medications Acetaminophen 500 Mg Tablet, 500 MG PO Q8H PRN for PAIN-BREAKTHROUGH, (Reported) Albuterol Sulfate 1 Puff Puff, 2 PUFF IH Q4H PRN for SHORTNESS OF BREATH, (Reported) 1 PUFF = 90 MCG Dicyclomine HCl 20 Mg Tablet, 20 MG PO BID Prescribed by: SHAE PICHARDO on 11/06/19 154 Insulin Aspart 300 Units/3 Ml Solution, 7 UNITS SQ AC Prescribed by: OSMAR JEROME on 05/23/18 0955 Insulin Detemir 100 Unit/1 Ml Insuln.pen, 20 UNIT SQ HS Prescribed by: OSMAR JEROME on 05/23/18 0955 Ipratropium/Albuterol Sulfate 3 Ml Ampul.neb, 3 ML IH Q4H PRN for SHORTNESS OF BREATH, (Reported) Ketorolac Tromethamine 10 Mg Tablet, 10 MG PO Q6H PRN for PAIN-MODERATE (5-7) Prescribed by: REGINA ROBLES MD on 04/21/19 1344 Lisinopril 20 Mg Tablet, 20 MG PO DAILY Prescribed by: OSMAR JEROME on 05/23/18 0955 Metformin HCl 750 Mg Tab.er.24h, 750 MG PO BID, (Reported) Metoclopramide HCl 10 Mg Tablet, 10 MG PO QID, (Reported) Omeprazole 20 Mg Capsule.dr, 20 MG PO HS, (Reported) Ondansetron 4 Mg Tab.rapdis, 4 MG PO Q4H PRN for NAUSEA/VOMITING-1ST LINE, (Reported) Ondansetron 4 Mg Tab.rapdis, 4 MG PO BID Prescribed by: SHAE PICHARDO on 11/06/19 154 Promethazine HCl 25 Mg Tablet, 25 MG PO Q6H PRN for NAUSEA/VOMITING, (Reported) Promethazine HCl 25 Mg Tablet, 25 MG PO Q6H PRN for NAUSEA/VOMITING-2ND LINE Prescribed by: ADA IRELAND on 10/09/181923 Promethazine HCl 50 Mg Supp.rect, 50 MG RC BID PRN Prescribed by: ALDO GUZMAN on 03/16/19 1331 Sucralfate 1 Gm Tablet, 1 GM PO QID Mixed with 10 mL water to make a slurry. Take 30 minutes before meals and bedtime. Prescribed by: ADA IRELAND on 10/09/18 192 Tramadol HCl 50 Mg Tablet, 50 MG PO Q6H PRN for PAIN-MILD, (Reported) Trazodone HCl 150 Mg Tablet, 300 MG PO HS, (Reported) Venlafaxine HCl 150 Mg Tab.er.24, 150 MG PO DAILY, (Reported) Patient Home Medication List Home Medication List Reviewed: Yes Review of Systems Review of Systems Constitutional: No no symptoms reported; see HPI; No chills, No diaphoresis, No dizziness, No fever, No malaise, No weakness, No weight gain, No weight loss, No other Respiratory: Denies No Symptoms Reported, Denies See HPI, Denies Cough, Denies Orthopnea, Denies Shortness of Air, Denies SOA With Exertion, Denies SOA at Rest, Denies Stridor, Denies Wheezing, Denies Other Cardiovascular: Denies No Symptoms Reported, Denies See HPI, Denies Chest Pain, Denies Edema, Denies Irregular Heart Rate, Denies Lightheadedness, Denies Palpitations, Denies Syncope, Denies Other Gastrointestinal: Denies No Symptoms Reported; See HPI; Denies Abdomen Distended; Abdominal Pain; Denies Blood Streaked Stools, Denies Constipated, Denies Diarrhea, Denies Difficulty Swallowing, Denies Nausea, Denies Poor Appetite, Denies Poor Fluid Intake, Denies Rectal Bleeding, Denies Vomiting, Denies Other Genitourinary: Denies No Symptoms Reported; See HPI; Denies Burning, Denies Discharge, Denies Drainage; Frequency; Denies Flank Pain, Denies Hematuria, Denies Incontinence, Denies Pain, Denies Urgency, Denies Other Musculoskeletal: No no symptoms reported, No see HPI, No back pain, No gout, No joint pain, No joint swelling, No muscle pain, No muscle stiffness, No muscle cramps, No muscle twitching, No muscle weakness, No neck pain, No other Skin: No no symptoms reported, No see HPI, No change in color, No change in hair/nails, No dryness, No hx of skin cancer, No lesions, No lumps, No pruritus, No rash, No other Psychiatric/Neurological: Denies No Symptoms Reported, Denies See HPI, Denies Anxiety, Denies Depressed, Denies Emotional Problems, Denies Headache, Denies Numbness, Denies Paresthesia, Denies Pre-Existing Deficit, Denies Seizure, Denies Tingling, Denies Tremors, Denies Weakness, Denies Other Endocrine: Denies No Symptoms Reported, Denies See HPI, Denies Excessive Sweating, Denies Flushing, Denies Intolerance to Cold, Denies Intolerance to Heat, Denies Increased Hunger, Denies Increased Thrist, Denies Increased Urine, Denies Unexplained Weight Gain, Denies Unexplaned Weight Loss, Denies Other All Other Systems Reviewed Negative Unless Noted: Yes Past Bbisfmf-Qftlde-Ihmbbn Hx Patient Social History Drug of Choice: THC, using CBD oil now Type Used: Cigarettes 2nd Hand Smoke Exposure: Yes Recent Foreign Travel: No Contact w/Someone Who Travel: No Recent Infectious Disease Expo: No Recent Hopitalizations: No Immunizations Up To Date Date of Pneumonia Vaccine: May 19, 2015 Date of Influenza Vaccine: Mar 29, 2018 Seasonal Allergies Seasonal Allergies: Yes Past Medical History Surgeries: Yes (knee and ankle surgery, Jejunostomy tube 07/26/19) Gallbladder, Hysterectomy, Orthopedic Respiratory: Yes (Tobaccoism) Asthma Currently Using CPAP: Yes Currently Using BIPAP: No Cardiac: No Neurological: No Female 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 Disorders: Denies [employer] History: Hysterectomy Sexually Transmitted Disease: No HIV/AIDS: No Genitourinary: No Gastrointestinal: Yes (Gastroparesis; Hepatitis C; possible cyclic vomiting) Gastroesophageal Reflux, Ulcer Musculoskeletal: No Endocrine: Yes Diabetes, Insulin dep HEENT: Yes (wears glasses) Hearing Impairment: Denies Cancer: No Psychosocial: Yes (schizoeffective disorder) Anxiety, Depression Integumentary: No Blood Disorders: No Physical Exam Vital Signs Vital Signs - First Documented 01/04/20 15:37 Temp 35.9 Pulse 87 Resp 18 B/P (MAP) 121/71 (88) Pulse Ox 99 O2 Delivery Room Air Capillary Refill : Less Than 3 Seconds Height/Weight/BMI Height: 5'2.00" Weight: 184lbs. 7.0oz. 83.781006nl; 32.00 BMI Method:Actual General Appearance: WD/WN, no apparent distress Respiratory: chest non-tender, lungs clear, normal breath sounds, no respiratory distress, no accessory muscle use Cardiovascular: normal peripheral pulses, regular rate, rhythm, no edema, no gallop, no JVD, no murmur Gastrointestinal: normal bowel sounds, non tender, soft, no organomegaly, no pulsatile mass, other (normal exam. No tenderness. No signs of strangulated or incarcerated hernia.) Skin: normal color, warm/dry Progress/Results/Core Measures Results/Orders Lab Results Laboratory Tests Test 01/04/20 15:45 01/04/20 15:50 Range/Units White Blood Count 10.6 4.3-11.0 10^3/uL Red Blood Count 4.66 4.35-5.85 10^6/uL Hemoglobin 14.9 11.5-16.0 G/DL Hematocrit 44 35-52 % Mean Corpuscular Volume 94 80-99 FL Mean Corpuscular Hemoglobin 32 25-34 PG Mean Corpuscular Hemoglobin Concent 34 32-36 G/DL Red Cell Distribution Width 12.3 10.0-14.5 % Platelet Count 199 130-400 10^3/uL Mean Platelet Volume 10.2 7.4-10.4 FL Neutrophils (%) (Auto) 74 42-75 % Lymphocytes (%) (Auto) 19 12-44 % Monocytes (%) (Auto) 5 0-12 % Eosinophils (%) (Auto) 1 0-10 % Basophils (%) (Auto) 0 0-10 % Neutrophils # (Auto) 7.9 H 1.8-7.8 X 10^3 Lymphocytes # (Auto) 2.0 1.0-4.0 X 10^3 Monocytes # (Auto) 0.5 0.0-1.0 X 10^3 Eosinophils # (Auto) 0.1 0.0-0.3 10^3/uL Basophils # (Auto) 0.0 0.0-0.1 10^3/uL Sodium Level 136 135-145 MMOL/L Potassium Level 4.2 3.6-5.0 MMOL/L Chloride Level 102 98-107 MMOL/L Carbon Dioxide Level 24 21-32 MMOL/L Anion Gap 10 5-14 MMOL/L Blood Urea Nitrogen 9 7-18 MG/DL Creatinine 0.78 0.60-1.30 MG/DL Estimat Glomerular Filtration Rate > 60 BUN/Creatinine Ratio 12 Glucose Level 165 H 70-105 MG/DL Calcium Level 8.9 8.5-10.1 MG/DL Corrected Calcium 9.1 8.5-10.1 MG/DL Total Bilirubin 0.2 0.1-1.0 MG/DL Aspartate Amino Transf (AST/SGOT) 30 5-34 U/L Alanine Aminotransferase (ALT/SGPT) 16 0-55 U/L Alkaline Phosphatase 75 40-136 U/L Total Protein 6.9 6.4-8.2 GM/DL Albumin 3.7 3.2-4.5 GM/DL Urine Color YELLOW Urine Clarity CLEAR Urine pH 6.5 5-9 Urine Specific [place] 1.010 L 1.016-1.022 Urine Protein NEGATIVE NEGATIVE Urine Glucose (UA) 3+ H NEGATIVE Urine Ketones NEGATIVE NEGATIVE Urine Nitrite NEGATIVE NEGATIVE Urine Bilirubin NEGATIVE NEGATIVE Urine Urobilinogen 0.2 < = 1.0 MG/DL Urine Leukocyte Esterase NEGATIVE NEGATIVE Urine RBC (Auto) NEGATIVE NEGATIVE Urine RBC NONE /HPF Urine WBC RARE /HPF Urine Squamous Epithelial Cells 10-25 H /HPF Urine Crystals NONE /LPF Urine Bacteria NEGATIVE /HPF Urine Casts NONE /LPF Urine Mucus NEGATIVE /LPF Urine Yeast LARGE H /HPF Urine Culture Indicated NO Urine Opiates Screen NEGATIVE NEGATIVE Urine Oxycodone Screen NEGATIVE NEGATIVE Urine Methadone Screen NEGATIVE NEGATIVE Urine Propoxyphene Screen NEGATIVE NEGATIVE Urine Barbiturates Screen NEGATIVE NEGATIVE Ur Tricyclic Antidepressants Screen NEGATIVE NEGATIVE Urine Phencyclidine Screen NEGATIVE NEGATIVE Urine Amphetamines Screen NEGATIVE NEGATIVE Urine Methamphetamines Screen NEGATIVE NEGATIVE Urine Benzodiazepines Screen POSITIVE H NEGATIVE Urine Cocaine Screen NEGATIVE NEGATIVE Urine Cannabinoids Screen POSITIVE H NEGATIVE My Orders Orders - SHAE PICHARDO MD Ed Iv/Invasive Line Start (01/04/20 15:45) Cbc With Automated Diff (01/04/20 15:45) Comprehensive Metabolic Panel (01/04/20 15:45) Urinalysis (01/04/20 15:45) Drug Screen Stat (Urine) (01/04/20 15:45) Ns Iv 1000 Ml (Sodium Chloride 0.9%) (01/04/20 15:45) Vital Signs/I&O 01/04/20 15:37 Temp 35.9 Pulse 87 Resp 18 B/P (MAP) 121/71 (88) Pulse Ox 99 O2 Delivery Room Air Blood Pressure Mean: 88 Progress Progress Note : Time: 16:29 Progress Note Negative evaluation in the emergency department for any acute findings. Patient does have a yeast UTI. Chronic pain. Chronic conditions otherwise appear to be stable. Patient is to encourage by mouth fluids. Take medications as instructed. Follow- up with her primary care physician and/or surgeon as scheduled. Patient is discharged home. Departure Impression Primary Impression: Epigastric abdominal pain Additional Impressions: Yeast UTI Diabetes Disposition: HOME, SELF-CARE Condition: Stable Departure-Patient Inst. Decision time for Depature: 16:30 Referrals: GLORY LINARES MD (PCP/Family) Primary Care Physician Patient Instructions: Yeast Infection (DC) Add. Discharge Instructions: Patient is to encourage by mouth fluids. Take medications as instructed. Follow- up with her primary care physician and/or surgeon as scheduled. Patient is discharged home. All discharge instructions reviewed with patient and/or family. Voiced understanding. Scripts Fluconazole (Diflucan) 100 Mg Tablet 100 MG PO DAILY, #3 TAB 0 Refills Prov: SHAE PICHARDO MD 01/04/20 SHAE PICHARDO MD Jan 04, 2020 15:49
[2020-01-04 16:01] LABS: BASOPHILS % (AUTO) 0 % (0-10); EOSINOPHILS % (AUTO) 1 % (0-10); HEMATOCRIT 44 % (35-52); HEMOGLOBIN 14.9 G/DL (11.5-16.0); LYMPHOCYTES % (AUTO) 19 % (12-44); MEAN CORPUSCULAR HEMOGLOBIN 32 PG (25-34); MEAN CORPUSCULAR HGB CONC 34 G/DL (32-36); MEAN CORPUSCULAR VOLUME 94 FL (80-99); MEAN PLATELET VOLUME 10.2 FL (7.4-10.4); MONOCYTES % (AUTO) 5 % (0-12); NEUTROPHILS % (AUTO) 74 % (42-75); PLATELET COUNT 199 10^3/uL (130-400); WHITE BLOOD COUNT 10.6 10^3/uL (4.3-11.0)
[2020-01-04 16:02] LABS: EOSINOPHILS # (AUTO) 0.1 10^3/uL (0.0-0.3); MONOCYTES # (AUTO) 0.5 X 10^3 (0.0-1.0); NEUTROPHILS # (AUTO) 7.9 X 10^3 (1.8-7.8)
[2020-01-04 16:04] LABS: BACTERIA,URINE NEGATIVE /HPF; BILIRUBIN,URINE NEGATIVE (NEGATIVE); CLARITY,URINE CLEAR; COLOR,URINE YELLOW; GLUCOSE, URINE (UA) 3+ (NEGATIVE); KETONES,URINE NEGATIVE (NEGATIVE); LEUKOCYTE ESTERASE ,URINE NEGATIVE (NEGATIVE); NITRITE,URINE NEGATIVE (NEGATIVE); PH,URINE 6.5 (5-9); PROTEIN,URINE NEGATIVE (NEGATIVE); WBC,URINE RARE /HPF
[2020-01-04 16:05] LABS: YEAST,URINE LARGE /HPF
[2020-01-04 16:10] LABS: AMPHETAMINE SCREEN, URINE NEGATIVE (NEGATIVE); BARBITURATE SCREEN URINE NEGATIVE (NEGATIVE); BENZODIAZEPINES SCREEN URINE POSITIVE (NEGATIVE); CANNABINOID SCREEN, URINE POSITIVE (NEGATIVE); COCAINE SCREEN URINE NEGATIVE (NEGATIVE); METHADONE STAT NEGATIVE (NEGATIVE); METHAMPHETAMINE SCREEN URINE S NEGATIVE (NEGATIVE); OPIATE SCREEN URINE NEGATIVE (NEGATIVE); OXYCODONE STAT NEGATIVE (NEGATIVE); PROPOXYPHENE STAT NEGATIVE (NEGATIVE); TRICYCLIC ANTIDEPRESSANTS SCRE NEGATIVE (NEGATIVE)
[2020-01-04 16:18] LABS: CHLORIDE 102 MMOL/L (98-107); POTASSIUM 4.2 MMOL/L (3.6-5.0); SODIUM 136 MMOL/L (135-145)
[2020-01-04 16:19] LABS: ALANINE AMINOTRANSFERASE 16 U/L (0-55); ALBUMIN 3.7 GM/DL (3.2-4.5); ALKALINE PHOSPHATASE 75 U/L (40-136); BILIRUBIN,TOTAL 0.2 MG/DL (0.1-1.0); BUN/CREATININE RATIO 12; CALCIUM 8.9 MG/DL (8.5-10.1); CARBON DIOXIDE 24 MMOL/L (21-32); CREATININE SERUM 0.78 MG/DL (0.60-1.30); GFR ESTIMATED > 60; GLUCOSE 165 MG/DL (70-105); TOTAL PROTEIN 6.9 GM/DL (6.4-8.2)
[2020-01-04] MEDS ORDERED: FLUC100T PO (16:32)
[2020-01-04 16:45] VITALS: BP 132/81
== END 2020-01-04 16:45 | disposition home or self-care (01) ==
LOC: EDUNIT# 15:32 → ER FS 15:34
DX: R10.13 Epigastric pain (principal); N39.0 Urinary tract infection, site not specified; K21.9 Gastro-esophageal reflux disease without esophagitis; E11.9 Type 2 diabetes mellitus without complications; F41.9 Anxiety disorder, unspecified; F32.9 Major depressive disorder, single episode, unspecified; J45.909 Unspecified asthma, uncomplicated; Z77.22 Contact with and (suspected) exposure to environmental tobacco smoke (acute) (chronic); Z91.040 Latex allergy status; Z88.2 Allergy status to sulfonamides; Z88.5 Allergy status to narcotic agent; Z88.8 Allergy status to other drugs, medicaments and biological substances; Z88.1 Allergy status to other antibiotic agents; Z79.4 Long term (current) use of insulin
CPT/HCPCS: 36415; 80053; 80306; 81000; 85025; 99282

== ENCOUNTER → 2020-01-07 | Outpatient (CLI) | payer MEDICAID ==
[~2020-01-07] MED LIST changes: +FLUC100T PO
[2020-01-07 16:11] LABS: HEMATOCRIT 43 % (35-52); HEMOGLOBIN 14.5 G/DL (11.5-16.0); LYMPHOCYTES % (AUTO) 18 % (12-44); MEAN CORPUSCULAR HEMOGLOBIN 32 PG (25-34); MEAN CORPUSCULAR HGB CONC 34 G/DL (32-36); MEAN CORPUSCULAR VOLUME 94 FL (80-99); MEAN PLATELET VOLUME 10.7 FL (7.4-10.4); NEUTROPHILS % (AUTO) 76 % (42-75); PLATELET COUNT 161 10^3/uL (130-400); WHITE BLOOD COUNT 9.6 10^3/uL (4.3-11.0)
[2020-01-07 16:12] LABS: ATYPICAL LYMPHOCYTES 2 %; BAND NEUTROPHILS 6 %; BASOPHILS % (AUTO) 0 % (0-10); BASOPHILS % (MANUAL) 0 %; EOSINOPHILS # (AUTO) 0.1 10^3/uL (0.0-0.3); EOSINOPHILS % (AUTO) 1 % (0-10); EOSINOPHILS % (MANUAL) 0 %; LYMPHOCYTES # (AUTO) 1.7 X 10^3 (1.0-4.0); LYMPHOCYTES % (MANUAL) 17 %; MONOCYTES # (AUTO) 0.5 X 10^3 (0.0-1.0); MONOCYTES % (AUTO) 5 % (0-12); MONOCYTES % (MANUAL) 4 %; NEUTROPHILS # (AUTO) 7.3 X 10^3 (1.8-7.8); NEUTROPHILS % (MANUAL) 71 %; RBC MORPH NORMAL
[2020-01-07 16:17] LABS: ALANINE AMINOTRANSFERASE 16 U/L (0-55); ALBUMIN 3.6 GM/DL (3.2-4.5); ALKALINE PHOSPHATASE 76 U/L (40-136); BILIRUBIN,TOTAL 0.2 MG/DL (0.1-1.0); BUN/CREATININE RATIO 13; CALCIUM 9.2 MG/DL (8.5-10.1); CARBON DIOXIDE 24 MMOL/L (21-32); CHLORIDE 101 MMOL/L (98-107); CREATININE SERUM 0.75 MG/DL (0.60-1.30); GFR ESTIMATED > 60; GLUCOSE 191 MG/DL (70-105); MAGNESIUM 1.7 MG/DL (1.6-2.4); POTASSIUM 4.2 MMOL/L (3.6-5.0); SODIUM 138 MMOL/L (135-145)
[2020-01-08 08:27] LABS: PHOSPHORUS 3.3 MG/DL (2.3-4.7)
== END ==
LOC: LAB FS 15:46
PROVIDERS: ATTEND Internal Medicine
DX: Z01.89 Encounter for other specified special examinations (principal)
CPT/HCPCS: 36415; 80053; 83735; 84100; 85007; 85027

== ENCOUNTER → 2020-01-14 | Outpatient (CLI) | payer MEDICAID ==
[2020-01-14 18:23] LABS: ALANINE AMINOTRANSFERASE 15 U/L (0-55); ALBUMIN 4.4 GM/DL (3.2-4.5); ALKALINE PHOSPHATASE 68 U/L (40-136); BILIRUBIN,TOTAL 0.3 MG/DL (0.1-1.0); BUN/CREATININE RATIO 38; CALCIUM 9.9 MG/DL (8.5-10.1); CARBON DIOXIDE 24 MMOL/L (21-32); CHLORIDE 101 MMOL/L (98-107); CREATININE SERUM 0.76 MG/DL (0.60-1.30); GFR ESTIMATED > 60; GLUCOSE 157 MG/DL (70-105); MAGNESIUM 2.1 MG/DL (1.6-2.4); POTASSIUM 4.4 MMOL/L (3.6-5.0); SODIUM 137 MMOL/L (135-145); TOTAL PROTEIN 7.6 GM/DL (6.4-8.2)
[2020-01-14 18:25] LABS: BASOPHILS % (AUTO) 0 % (0-10); EOSINOPHILS # (AUTO) 0.1 10^3/uL (0.0-0.3); EOSINOPHILS % (AUTO) 1 % (0-10); HEMATOCRIT 48 % (35-52); HEMOGLOBIN 16.1 G/DL (11.5-16.0); LYMPHOCYTES # (AUTO) 2.2 X 10^3 (1.0-4.0); LYMPHOCYTES % (AUTO) 21 % (12-44); MEAN CORPUSCULAR HEMOGLOBIN 32 PG (25-34); MEAN CORPUSCULAR HGB CONC 34 G/DL (32-36); MEAN CORPUSCULAR VOLUME 93 FL (80-99); MONOCYTES # (AUTO) 0.8 X 10^3 (0.0-1.0); MONOCYTES % (AUTO) 7 % (0-12); NEUTROPHILS # (AUTO) 7.8 X 10^3 (1.8-7.8); NEUTROPHILS % (AUTO) 71 % (42-75); PLATELET COUNT 231 10^3/uL (130-400); WHITE BLOOD COUNT 10.6 10^3/uL (4.3-11.0)
[2020-01-15 15:26] LABS: PHOSPHORUS 3.9 MG/DL (2.3-4.7)
== END ==
LOC: LAB FS 16:07
PROVIDERS: ATTEND Family Medicine
DX: E11.43 Type 2 diabetes mellitus with diabetic autonomic (poly)neuropathy (principal); K31.84 Gastroparesis
CPT/HCPCS: 36415; 80053; 83735; 84100; 85025

== ENCOUNTER → 2020-01-21 | Outpatient (CLI) | payer MEDICAID ==
[2020-01-21 13:27] LABS: HEMATOCRIT 46 % (35-52); HEMOGLOBIN 15.5 G/DL (11.5-16.0); MEAN CORPUSCULAR HEMOGLOBIN 31 PG (25-34); MEAN CORPUSCULAR HGB CONC 33 G/DL (32-36); MEAN CORPUSCULAR VOLUME 94 FL (80-99); WHITE BLOOD COUNT 10.3 10^3/uL (4.3-11.0)
[2020-01-21 13:28] LABS: BASOPHILS % (AUTO) 0 % (0-10); EOSINOPHILS % (AUTO) 1 % (0-10); LYMPHOCYTES # (AUTO) 2.1 X 10^3 (1.0-4.0); LYMPHOCYTES % (AUTO) 20 % (12-44); MEAN PLATELET VOLUME 11.2 FL (7.4-10.4); MONOCYTES % (AUTO) 9 % (0-12); NEUTROPHILS # (AUTO) 7.2 X 10^3 (1.8-7.8); NEUTROPHILS % (AUTO) 70 % (42-75); PLATELET COUNT 200 10^3/uL (130-400)
[2020-01-21 13:29] LABS: EOSINOPHILS # (AUTO) 0.1 10^3/uL (0.0-0.3); MONOCYTES # (AUTO) 0.8 X 10^3 (0.0-1.0)
[2020-01-21 13:47] LABS: ALANINE AMINOTRANSFERASE 12 U/L (0-55); ALKALINE PHOSPHATASE 69 U/L (40-136); BILIRUBIN,TOTAL 0.3 MG/DL (0.1-1.0); BUN/CREATININE RATIO 38; CALCIUM 9.6 MG/DL (8.5-10.1); CARBON DIOXIDE 21 MMOL/L (21-32); CHLORIDE 104 MMOL/L (98-107); CREATININE SERUM 0.78 MG/DL (0.60-1.30); GFR ESTIMATED > 60; GLUCOSE 209 MG/DL (70-105); MAGNESIUM 1.9 MG/DL (1.6-2.4); SODIUM 137 MMOL/L (135-145)
[2020-01-21 13:48] LABS: ALBUMIN 4.3 GM/DL (3.2-4.5); TOTAL PROTEIN 7.3 GM/DL (6.4-8.2)
[2020-01-21 15:22] LABS: PHOSPHORUS 4.4 MG/DL (2.3-4.7)
== END ==
LOC: LAB FS 12:57
PROVIDERS: ATTEND Internal Medicine
DX: E11.9 Type 2 diabetes mellitus without complications (principal); I10 Essential (primary) hypertension; J44.9 Chronic obstructive pulmonary disease, unspecified
CPT/HCPCS: 36415; 80053; 83735; 84100; 85025

== ENCOUNTER → 2020-02-04 | Outpatient (CLI) | payer MEDICAID ==
[2020-02-04 13:16] LABS: WHITE BLOOD COUNT 8.4 10^3/uL (4.3-11.0)
[2020-02-04 13:17] LABS: BASOPHILS % (AUTO) 0 % (0-10); EOSINOPHILS # (AUTO) 0.1 10^3/uL (0.0-0.3); EOSINOPHILS % (AUTO) 1 % (0-10); HEMATOCRIT 47 % (35-52); HEMOGLOBIN 15.8 G/DL (11.5-16.0); LYMPHOCYTES # (AUTO) 1.9 X 10^3 (1.0-4.0); LYMPHOCYTES % (AUTO) 23 % (12-44); MEAN CORPUSCULAR HEMOGLOBIN 32 PG (25-34); MEAN CORPUSCULAR HGB CONC 34 G/DL (32-36); MEAN CORPUSCULAR VOLUME 93 FL (80-99); MEAN PLATELET VOLUME 10.9 FL (7.4-10.4); MONOCYTES # (AUTO) 0.8 X 10^3 (0.0-1.0); MONOCYTES % (AUTO) 9 % (0-12); NEUTROPHILS # (AUTO) 5.6 X 10^3 (1.8-7.8); NEUTROPHILS % (AUTO) 66 % (42-75); PLATELET COUNT 160 10^3/uL (130-400)
[2020-02-04 13:28] LABS: ALANINE AMINOTRANSFERASE 17 U/L (0-55); ALBUMIN 3.9 GM/DL (3.2-4.5); ALKALINE PHOSPHATASE 69 U/L (40-136); BILIRUBIN,TOTAL 0.2 MG/DL (0.1-1.0); BUN/CREATININE RATIO 30; CALCIUM 9.2 MG/DL (8.5-10.1); CARBON DIOXIDE 22 MMOL/L (21-32); CHLORIDE 102 MMOL/L (98-107); CREATININE SERUM 0.71 MG/DL (0.60-1.30); GFR ESTIMATED > 60; GLUCOSE 132 MG/DL (70-105); MAGNESIUM 1.8 MG/DL (1.6-2.4); POTASSIUM 3.8 MMOL/L (3.6-5.0); SODIUM 138 MMOL/L (135-145); TOTAL PROTEIN 7.7 GM/DL (6.4-8.2)
[2020-02-05 14:42] LABS: PHOSPHORUS 3.5 MG/DL (2.3-4.7)
== END ==
LOC: LAB FS 12:20
PROVIDERS: ATTEND Internal Medicine
DX: E11.43 Type 2 diabetes mellitus with diabetic autonomic (poly)neuropathy (principal); K31.84 Gastroparesis
CPT/HCPCS: 36415; 80053; 83735; 84100; 85025

== ENCOUNTER 2020-03-26 14:24 | Emergency (ER) | payer MEDICAID ==
[~2020-03-26 14:24] MED LIST changes: +AMLO-251; -AMLO10TA7; +CLN.1T; -CLON0.1T
--- NOTE | 2020-03-26 15:12 | ED General ---
General Chief Complaint: Abdominal/GI Problems Stated Complaint: RUQ PAIN Nursing Triage Note: Is 6 weeks post op from pyloroplasty, gastric electric stimulator and hernia repair. Is having right upper quadrant pain rated at 10/10. Has been using a 25 mcg fentanyl patch for pain. Her surgeon at [facility] had her take laxatives, but has not helped with pain. Pain started 2 days ago and has worsened, described as sharp. Nursing Sepsis Screen: No Definite Risk History of Present Illness Date Seen by Provider: Mar 26, 2020 Time Seen by Provider: 15:08 Initial Comments Patient presenting to emergency department for evaluation of abdominal pain that has been worsening over the past 2 days. She is 6 week postop from a gastric stimulator insertion as well as pyloroplasty and hernia repair that was done at [facility] in [place] by demond Zaidi. She says that she had been doing well up until the past several days and her doctor told her she was likely constipated and she has been doing laxatives but this has not helped that she has been having multiple bowel movements but no relief in her pain. She has had no fevers chills nausea vomiting or other systemic symptoms. She is wearing a fentanyl patch and taking ibuprofen but says that none of this is helping her pain. She is in no obvious distress with normal vital signs. Allergies and Home Medications Allergies Coded Allergies: adhesive tape (Verified Allergy, Unknown, 09/28/18) chlorhexidine (Verified Allergy, Unknown, 07/29/18) fluvoxamine (Verified Allergy, Unknown, 07/29/18) hydromorphone (Verified Allergy, Unknown, 07/29/18) latex (Verified Allergy, Unknown, 07/29/18) meperidine (Verified Allergy, Unknown, 07/29/18) morphine (Verified Allergy, Unknown, 05/19/18) sulfamethoxazole (Verified Allergy, Unknown, 05/19/18) trimethoprim (Verified Allergy, Unknown, 05/19/18) metoclopramide (Unverified Adverse Reaction, Intermediate, Tardive Dyskinesia, 02/02/19) promethazine (Unverified Adverse Reaction, Intermediate, Tardive Dyskinesia, 02/02/19) Home Medications Acetaminophen 500 Mg Tablet, 500 MG PO Q8H PRN for PAIN-BREAKTHROUGH, (Reported) Albuterol Sulfate 1 Puff Puff, 2 PUFF IH Q4H PRN for SHORTNESS OF BREATH, (R eported) 1 PUFF = 90 MCG Dicyclomine HCl 20 Mg Tablet, 20 MG PO BID Prescribed by: SHAE PICHARDO on 11/06/19 1541 Fluconazole 100 Mg Tablet, 100 MG PO DAILY Prescribed by: SHAE PICHARDO on 01/04/20 1632 Insulin Aspart 300 Units/3 Ml Solution, 7 UNITS SQ AC Prescribed by: OSMAR JEROME on 05/23/18 0955 Insulin Detemir 100 Unit/1 Ml Insuln.pen, 20 UNIT SQ HS Prescribed by: OSMAR JEROME on 05/23/18 0955 Ipratropium/Albuterol Sulfate 3 Ml Ampul.neb, 3 ML IH Q4H PRN for SHORTNESS OF BREATH, (Reported) Ketorolac Tromethamine 10 Mg Tablet, 10 MG PO Q6H PRN for PAIN-MODERATE (5-7) Prescribed by: REGINA ROBLES MD on 04/21/19 1344 Lisinopril 20 Mg Tablet, 20 MG PO DAILY Prescribed by: OSMAR JEROME on 05/23/18 0955 Metformin HCl 750 Mg Tab.er.24h, 750 MG PO BID, (Reported) Metoclopramide HCl 10 Mg Tablet, 10 MG PO QID, (Reported) Omeprazole 20 Mg Capsule.dr, 20 MG PO HS, (Reported) Ondansetron 4 Mg Tab.rapdis, 4 MG PO Q4H PRN for NAUSEA/VOMITING-1ST LINE, (Reported) Ondansetron 4 Mg Tab.rapdis, 4 MG PO BID Prescribed by: SHAE PICHARDO on 11/06/19 1541 Promethazine HCl 25 Mg Tablet, 25 MG PO Q6H PRN for NAUSEA/VOMITING, (Reported) Promethazine HCl 25 Mg Tablet, 25 MG PO Q6H PRN for NAUSEA/VOMITING-2ND LINE Prescribed by: ADA IRELAND on 10/09/18 192 Promethazine HCl 50 Mg Supp.rect, 50 MG RC BID PRN Prescribed by: ALDO GUZMAN on 03/16/19 1331 Sucralfate 1 Gm Tablet, 1 GM PO QID Mixed with 10 mL water to make a slurry. Take 30 minutes before meals and bedtime. Prescribed by: ADA IRELAND on 10/09/181923 Tramadol HCl 50 Mg Tablet, 50 MG PO Q6H PRN for PAIN-MILD, (Reported) Trazodone HCl 150 Mg Tablet, 300 MG PO HS, (Reported) Venlafaxine HCl 150 Mg Tab.er.24, 150 MG PO DAILY, (Reported) Patient Home Medication List Home Medication List Reviewed: Yes Review of Systems Review of Systems Constitutional: no symptoms reported EENTM: no symptoms reported Respiratory: no symptoms reported Cardiovascular: no symptoms reported Gastrointestinal: abdominal pain (RUQ), diarrhea Genitourinary: no symptoms reported Musculoskeletal: no symptoms reported Skin: no symptoms reported Psychiatric/Neurological: No Symptoms Reported All Other Systems Reviewed Negative Unless Noted: Yes Past Sxryflh-Uigltv-Lkuidi Hx Patient Social History Alcohol Use: Denies Use Recreational Drug Use: No Drug of Choice: THC, using CBD oil now Smoking Status: Current Everyday Smoker Type Used: Cigarettes 2nd Hand Smoke Exposure: Yes Recent Foreign Travel: No Contact w/Someone Who Travel: No Recent Infectious Disease Expo: No Recent Hopitalizations: No Physical Abuse: No Sexual Abuse: No Mistreated: No Fear: No Immunizations Up To Date Date of Pneumonia Vaccine: May 19, 2015 Date of Influenza Vaccine: Mar 29, 2018 Seasonal Allergies Seasonal Allergies: Yes Past Medical History Surgeries: Yes (Jejunostomy tube 07/26/19; gastric stimulator; pyloroplasty) Gallbladder, Hysterectomy, Orthopedic Respiratory: Yes (Tobaccoism) Asthma Currently Using CPAP: Yes Currently Using BIPAP: No Cardiac: No Neurological: No Female 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 Disorders: Denies [employer] History: Hysterectomy Sexually Transmitted Disease: No HIV/AIDS: No Genitourinary: No Gastrointestinal: Yes (Gastroparesis; Hepatitis C; possible cyclic vomiting) Gastroesophageal Reflux, Ulcer Musculoskeletal: No Endocrine: Yes Diabetes, Insulin dep HEENT: Yes (wears glasses) Hearing Impairment: Denies Cancer: No Psychosocial: Yes (schizoeffective disorder) Anxiety, Depression Integumentary: No Blood Disorders: No Physical Exam Vital Signs Vital Signs - First Documented 03/26/20 14:32 Temp 36.7 Pulse 93 Resp 16 B/P (MAP) 150/108 (122) Pulse Ox 97 Capillary Refill : Less Than 3 Seconds Height, Weight, BMI Height: 5'2.00" Weight: 184lbs. 7.0oz. [id number]; 32.00 BMI Method:Actual General Appearance: No Apparent Distress, WD/WN Neck: Supple Respiratory: Normal Breath Sounds, No Respiratory Distress Cardiovascular: Regular Rate, Rhythm Gastrointestinal: Soft, Tenderness (RUQ with voluntary guarding but no rebound) Back: Normal Inspection Extremity: Normal Capillary Refill Neurologic/Psychiatric: Alert, Oriented x3 Skin: Warm/Dry Progress/Results/Core Measures Suspected Sepsis Recent Fever Within 48 Hours: No Infection Criteria Present: Suspected New Infection New/Unexplained Altered Menta: No Sepsis Screen: No Definite Risk SIRS Temperature: Pulse: 93 Respiratory Rate: 16 Laboratory Tests 03/26/20 14:56: White Blood Count 9.0 Blood Pressure 150 /108 Mean: 122 Laboratory Tests 03/26/20 14:56: Creatinine 0.59L, Platelet Count 220, Total Bilirubin 0.3 Results/Orders Lab Results Laboratory Tests Test 03/26/20 14:56 03/26/20 15:38 Range/Units White Blood Count 9.0 4.3-11.0 10^3/uL Red Blood Count 4.38 4.35-5.85 10^6/uL Hemoglobin 13.7 11.5-16.0 G/DL Hematocrit 40 35-52 % Mean Corpuscular Volume 92 80-99 FL Mean Corpuscular Hemoglobin 31 25-34 PG Mean Corpuscular Hemoglobin Concent 34 32-36 G/DL Red Cell Distribution Width 13.8 10.0-14.5 % Platelet Count 220 130-400 10^3/uL Mean Platelet Volume 10.9 H 7.4-10.4 FL Immature Granulocyte % (Auto) 0 % Neutrophils (%) (Auto) 73 42-75 % Lymphocytes (%) (Auto) 19 12-44 % Monocytes (%) (Auto) 7 0-12 % Eosinophils (%) (Auto) 1 0-10 % Basophils (%) (Auto) 0 0-10 % Neutrophils # (Auto) 6.5 1.8-7.8 X 10^3 Lymphocytes # (Auto) 1.7 1.0-4.0 X 10^3 Monocytes # (Auto) 0.6 0.0-1.0 X 10^3 Eosinophils # (Auto) 0.1 0.0-0.3 10^3/uL Basophils # (Auto) 0.0 0.0-0.1 10^3/uL Immature Granulocyte # (Auto) 0.0 0.0-0.1 10^3/uL Sodium Level 137 135-145 MMOL/L Potassium Level 4.3 3.6-5.0 MMOL/L Chloride Level 101 98-107 MMOL/L Carbon Dioxide Level 24 21-32 MMOL/L Anion Gap 12 5-14 MMOL/L Blood Urea Nitrogen 9 7-18 MG/DL Creatinine 0.59 L 0.60-1.30 MG/DL Estimat Glomerular Filtration Rate > 60 BUN/Creatinine Ratio 15 Glucose Level 145 H 70-105 MG/DL Calcium Level 9.4 8.5-10.1 MG/DL Corrected Calcium 9.4 8.5-10.1 MG/DL Total Bilirubin 0.3 0.1-1.0 MG/DL Aspartate Amino Transf (AST/SGOT) 34 5-34 U/L Alanine Aminotransferase (ALT/SGPT) 23 0-55 U/L Alkaline Phosphatase 70 40-136 U/L Total Protein 6.8 6.4-8.2 GM/DL Albumin 4.0 3.2-4.5 GM/DL Lipase 25 8-78 U/L Urine Color YELLOW Urine Clarity CLEAR Urine pH 7.0 5-9 Urine Specific [place] 1.020 1.016-1.022 Urine Protein NEGATIVE NEGATIVE Urine Glucose (UA) NEGATIVE NEGATIVE Urine Ketones NEGATIVE NEGATIVE Urine Nitrite NEGATIVE NEGATIVE Urine Bilirubin NEGATIVE NEGATIVE Urine Urobilinogen 0.2 < = 1.0 MG/DL Urine Leukocyte Esterase NEGATIVE NEGATIVE Urine RBC (Auto) NEGATIVE NEGATIVE Urine RBC 0-2 /HPF Urine WBC 0-2 /HPF Urine Squamous Epithelial Cells 10-25 H /HPF Urine Crystals NONE /LPF Urine Bacteria NEGATIVE /HPF Urine Casts NONE /LPF Urine Mucus MODERATE H /LPF Urine Culture Indicated NO My Orders Orders - JOHN RIZO DO Cbc With Automated Diff (03/26/20 15:01) Comprehensive Metabolic Panel (03/26/20 15:01) Lipase (03/26/20 15:01) Ua Culture If Indicated (03/26/20 15:01) Iv/Invasive Line Insertion .IV start (03/26/20 15:01) Ct Abdomen/Pelvis W (03/26/20 15:01) Ondansetron Injection (Zofran Injectio (03/26/20 15:15) Fentanyl Injection (Sublimaze Injection (12/2/20 15:15) Iohexol Injection (Omnipaque 350 Mg/Ml 1 (03/26/20 15:45) Received Contrast (Hold Metformin- Contr (03/26/20 15:45) Sodium Chloride Flush (Catheter Flush Sy (03/26/20 15:45) Ns (Ivpb) (Sodium Chloride 0.9% Ivpb Bag (03/26/20 15:45) Medications Given in ED Current Medications Medications Dose Ordered Sig/Ashley Route Start Time Stop Time Status Last Admin Dose Admin Fentanyl Citrate 100 mcg ONCE ONCE IVP 03/26/20 15:15 03/26/20 15:16 DC 03/26/20 15:13 100 MCG Iohexol 100 ml ONCE ONCE IV 03/26/20 15:45 03/26/20 15:46 DC 03/26/20 16:04 100 ML Ondansetron HCl 8 mg ONCE ONCE IVP 03/26/20 15:15 03/26/20 15:16 DC 03/26/20 15:12 8 MG Sodium Chloride 10 ml NEEDED PRN IV 03/26/20 15:45 03/26/20 16:04 10 ML Sodium Chloride 100 ml ONCE ONCE IV 03/26/20 15:45 03/26/20 15:46 DC 03/26/20 16:04 100 ML Vital Signs/I&O 03/26/20 14:32 Temp 36.7 Pulse 93 Resp 16 B/P (MAP) 150/108 (122) Pulse Ox 97 Capillary Refill : Less Than 3 Seconds Blood Pressure Mean: 122 Progress Note : Progress Note Patient with right upper quadrant pain in the setting of having a cholecystectomy in the past as well as having recent surgery. She told me that her physician wanted a CT scan done and if there is any abnormality for her to be transferred to [facility]. I will check labs imaging treat symptoms and reassess. I spoke to Dr. Vieira at length about patient's presentation labs and imaging results and discussed potential causes and he was thinking it could possibly being costochondritis. Patient's pain improved significantly in the emergency department and she continues to have completely normal vital signs. Her repeat abdominal exam is benign and so she'll be discharged in stable condition. Dr. Vieira said that he would call the patient tomorrow to check up on her. Patien t aware and agreeable with plan for discharge and verbalized understanding of the need for short-term follow-up and strict ED return precautions discussed worsening pain fevers vomiting or other general concerns. Departure Impression Primary Impression: Abdominal pain Qualified Codes: R10.11 - Right upper quadrant pain Disposition: 01 HOME, SELF-CARE Condition: Stable Departure-Patient Inst. Referrals: SELF,GLORY VEGA (PCP/Family) Primary Care Physician Patient Instructions: Severe Abdominal Pain, Adult (DC) JOHN RIZO DO Mar 26, 2020 15:12
[2020-03-26] MEDS ORDERED: fentaNYL INJECTION 100 MCG/2 ML AMP IVP ONE (15:15)
[2020-03-26] MEDS ORDERED: ONDANSETRON 4 MG/2 ML (SDV) Z0FRAN IVP ONE (15:15)
[2020-03-26 15:20] LABS: BASOPHILS % (AUTO) 0 % (0-10); EOSINOPHILS % (AUTO) 1 % (0-10); HEMATOCRIT 40 % (35-52); HEMOGLOBIN 13.7 G/DL (11.5-16.0); LYMPHOCYTES % (AUTO) 19 % (12-44); MEAN CORPUSCULAR HEMOGLOBIN 31 PG (25-34); MEAN CORPUSCULAR HGB CONC 34 G/DL (32-36); MEAN CORPUSCULAR VOLUME 92 FL (80-99); MEAN PLATELET VOLUME 10.9 FL (7.4-10.4); MONOCYTES % (AUTO) 7 % (0-12); NEUTROPHILS # (AUTO) 6.5 X 10^3 (1.8-7.8); NEUTROPHILS % (AUTO) 73 % (42-75); PLATELET COUNT 220 10^3/uL (130-400)
[2020-03-26 15:21] LABS: EOSINOPHILS # (AUTO) 0.1 10^3/uL (0.0-0.3); LYMPHOCYTES # (AUTO) 1.7 X 10^3 (1.0-4.0); MONOCYTES # (AUTO) 0.6 X 10^3 (0.0-1.0)
[2020-03-26] MEDS ORDERED: CATHETER FLUSH 10 ML SYR IV PRN (15:45)
[2020-03-26] MEDS ORDERED: IOHEXOL 350 MG/ML 100 ML (OMNIPAQUE 350) VIAL IV ONE (15:45)
[2020-03-26] MEDS ORDERED: NS 100 ML (IVPB) BAG IV ONE (15:45)
[2020-03-26] MEDS ORDERED: HOLD METFORMIN - RECEIVED CONTRAST 20 ML VIAL IV SCH (15:45)
[2020-03-26 15:48] LABS: BUN/CREATININE RATIO 15; CARBON DIOXIDE 24 MMOL/L (21-32); CHLORIDE 101 MMOL/L (98-107); CREATININE SERUM 0.59 MG/DL (0.60-1.30); GFR ESTIMATED > 60; POTASSIUM 4.3 MMOL/L (3.6-5.0); SODIUM 137 MMOL/L (135-145)
[2020-03-26 15:49] LABS: ALANINE AMINOTRANSFERASE 23 U/L (0-55); ALKALINE PHOSPHATASE 70 U/L (40-136); BILIRUBIN,TOTAL 0.3 MG/DL (0.1-1.0); CALCIUM 9.4 MG/DL (8.5-10.1); GLUCOSE 145 MG/DL (70-105); LIPASE 25 U/L (8-78); TOTAL PROTEIN 6.8 GM/DL (6.4-8.2)
[2020-03-26 15:56] LABS: BILIRUBIN,URINE NEGATIVE (NEGATIVE); CLARITY,URINE CLEAR; COLOR,URINE YELLOW; GLUCOSE, URINE (UA) NEGATIVE (NEGATIVE); KETONES,URINE NEGATIVE (NEGATIVE); LEUKOCYTE ESTERASE ,URINE NEGATIVE (NEGATIVE); NITRITE,URINE NEGATIVE (NEGATIVE); PROTEIN,URINE NEGATIVE (NEGATIVE)
[2020-03-26 16:06] LABS: RBC,URINE 0-2 /HPF
[2020-03-26 16:07] LABS: BACTERIA,URINE NEGATIVE /HPF; WBC,URINE 0-2 /HPF
--- NOTE | 2020-03-26 16:30 | Diagnostic Imaging Report ---
PROCEDURE: CT abdomen and pelvis with contrast. TECHNIQUE: Multiple contiguous axial images were obtained through the abdomen and pelvis after administration of intravenous contrast. Auto Exposure Controls were utilized during the CT exam to meet ALARA standards for radiation dose reduction. All CT scans use one or more of the following dose optimizing techniques: automated exposure control, MA and/or KvP adjustment based on patient size and exam type or iterative reconstruction. INDICATION: Abdominal pain, nausea, and emesis. COMPARISON: 07/27/2019. FINDINGS: There is no evidence of focal hepatic or splenic lesion. Gastric stimulator is seen extending to the lesser curvature. Gallbladder is surgically absent with mild intra and extrahepatic biliary ductal dilatation. No pancreatic, adrenal gland, splenic, or renal abnormality is seen. The appendix has a normal appearance. Note is made of an approximately 4.2 cm cystic structure in the left adnexa. Bladder is decompressed but otherwise unremarkable. Otherwise, no definite acute abnormality or significant adverse change is seen. IMPRESSION: 4.2 cm dominant cyst in the left adnexal region. This is likely ovarian in nature and, if indicated, ultrasonography may be of value for further assessment. Otherwise, no acute abnormality or significant adverse change is seen. Dictated by: Dictated on workstation # [id number]
[2020-03-26 17:24] VITALS: BP 112/59
== END 2020-03-26 17:28 | disposition home or self-care (01) ==
LOC: EDUNIT# 14:24 → ER FS 14:25
DX: R10.11 Right upper quadrant pain (principal); J45.909 Unspecified asthma, uncomplicated; E11.9 Type 2 diabetes mellitus without complications; K21.9 Gastro-esophageal reflux disease without esophagitis; F32.9 Major depressive disorder, single episode, unspecified; F41.9 Anxiety disorder, unspecified; F17.210 Nicotine dependence, cigarettes, uncomplicated; Z88.5 Allergy status to narcotic agent; Z88.2 Allergy status to sulfonamides; Z88.1 Allergy status to other antibiotic agents; Z91.040 Latex allergy status; Z88.8 Allergy status to other drugs, medicaments and biological substances; Z79.4 Long term (current) use of insulin
CPT/HCPCS: 36415; 74177; 80053; 81000; 83690; 85025

== ENCOUNTER → 2020-06-04 | Outpatient (CLI) | payer MEDICAID | LOC: WOUNDCARE 14:35 | PROVIDERS: ATTEND Surgery | DX: E11.52 Type 2 diabetes mellitus with diabetic peripheral angiopathy with gangrene (principal); E11.621 Type 2 diabetes mellitus with foot ulcer; E11.43 Type 2 diabetes mellitus with diabetic autonomic (poly)neuropathy; I96 Gangrene, not elsewhere classified; L98.493 Non-pressure chronic ulcer of skin of other sites with necrosis of muscle; S31.102A Unspecified open wound of abdominal wall, epigastric region without penetration into peritoneal cavity, initial encounter; T81.31XA Disruption of external operation (surgical) wound, not elsewhere classified, initial encounter; E66.01 Morbid (severe) obesity due to excess calories; K31.84 Gastroparesis; Z68.33 Body mass index [BMI] 33.0-33.9, adult | CPT/HCPCS: 97605 ==

== ENCOUNTER → 2020-06-06 | Outpatient (CLI) | payer MEDICAID ==
[~2020-06-06] MED LIST changes: -LISI-552 PO; -LISI10TA2 PO; +LISI10TA25 PO; +LISI20TA26 PO; -LISI40TA; +LISI40TA9; -METO10TA3 PO; +MTC10T PO
== END ==
LOC: WOUNDCARE 08:02
PROVIDERS: ATTEND Surgery
DX: S31.101A Unspecified open wound of abdominal wall, left upper quadrant without penetration into peritoneal cavity, initial encounter (principal); S31.100A Unspecified open wound of abdominal wall, right upper quadrant without penetration into peritoneal cavity, initial encounter
CPT/HCPCS: 97605

== ENCOUNTER → 2020-06-11 | Outpatient (CLI) | payer MEDICAID | LOC: WOUNDCARE 12:39 | PROVIDERS: ATTEND Orthopaedic Surgery Hand Surgery | DX: S31.102A Unspecified open wound of abdominal wall, epigastric region without penetration into peritoneal cavity, initial encounter (principal); T81.31XA Disruption of external operation (surgical) wound, not elsewhere classified, initial encounter; I96 Gangrene, not elsewhere classified; L98.494 Non-pressure chronic ulcer of skin of other sites with necrosis of bone; E11.622 Type 2 diabetes mellitus with other skin ulcer; E66.01 Morbid (severe) obesity due to excess calories; K31.84 Gastroparesis; Z68.35 Body mass index [BMI] 35.0-35.9, adult | CPT/HCPCS: 11042; 11045; 97605 ==

== ENCOUNTER → 2020-06-13 | Outpatient (CLI) | payer MEDICAID | LOC: WOUNDCARE 08:18 | PROVIDERS: ATTEND Orthopaedic Surgery Hand Surgery | DX: S31.101A Unspecified open wound of abdominal wall, left upper quadrant without penetration into peritoneal cavity, initial encounter (principal) | CPT/HCPCS: 97605 ==

== ENCOUNTER → 2020-06-16 | Outpatient (CLI) | payer MEDICAID | LOC: WOUNDCARE 13:54 | PROVIDERS: ATTEND Surgery | DX: S31.102A Unspecified open wound of abdominal wall, epigastric region without penetration into peritoneal cavity, initial encounter (principal); T81.31XA Disruption of external operation (surgical) wound, not elsewhere classified, initial encounter; L98.493 Non-pressure chronic ulcer of skin of other sites with necrosis of muscle; L98.492 Non-pressure chronic ulcer of skin of other sites with fat layer exposed; E11.622 Type 2 diabetes mellitus with other skin ulcer; E66.01 Morbid (severe) obesity due to excess calories; K31.84 Gastroparesis; I96 Gangrene, not elsewhere classified; Z68.35 Body mass index [BMI] 35.0-35.9, adult | CPT/HCPCS: 11042; 11043; 97605 ==

== ENCOUNTER → 2020-06-18 | Outpatient (CLI) | payer MEDICAID | LOC: WOUNDCARE 13:48 | PROVIDERS: ATTEND Surgery | DX: S31.100A Unspecified open wound of abdominal wall, right upper quadrant without penetration into peritoneal cavity, initial encounter (principal); S31.101A Unspecified open wound of abdominal wall, left upper quadrant without penetration into peritoneal cavity, initial encounter; X58.XXXA Exposure to other specified factors, initial encounter | CPT/HCPCS: 97605 ==

== ENCOUNTER 2020-06-23 13:10 | Outpatient (RCR) | payer MEDICAID ==
[2020-06-11 14:34] VITALS: BP 170/99
[2020-06-12 08:42] LABS: ALANINE AMINOTRANSFERASE 10 U/L (0-55); ALBUMIN 3.5 GM/DL (3.2-4.5); ALKALINE PHOSPHATASE 46 U/L (40-136); BILIRUBIN,TOTAL 0.3 MG/DL (0.1-1.0); BUN/CREATININE RATIO 12; CALCIUM 8.6 MG/DL (8.5-10.1); CARBON DIOXIDE 24 MMOL/L (21-32); CHLORIDE 103 MMOL/L (98-107); CREATININE SERUM 0.74 MG/DL (0.60-1.30); GFR ESTIMATED > 60; GLUCOSE 124 MG/DL (70-105); POTASSIUM 3.7 MMOL/L (3.6-5.0); SODIUM 136 MMOL/L (135-145); TOTAL PROTEIN 6.7 GM/DL (6.4-8.2)
[2020-06-12 08:43] LABS: BASOPHILS % (AUTO) 0 % (0-10); EOSINOPHILS # (AUTO) 0.2 10^3/uL (0.0-0.3); EOSINOPHILS % (AUTO) 2 % (0-10); HEMATOCRIT 37 % (35-52); HEMOGLOBIN 11.8 g/dL (11.5-16.0); LYMPHOCYTES # (AUTO) 1.5 10^3/uL (1.0-4.0); LYMPHOCYTES % (AUTO) 21 % (12-44); MEAN CORPUSCULAR HEMOGLOBIN 32 pg (25-34); MEAN CORPUSCULAR HGB CONC 32 g/dL (32-36); MEAN CORPUSCULAR VOLUME 99 fL (80-99); MEAN PLATELET VOLUME 10.5 fL (9.0-12.2); MONOCYTES # (AUTO) 0.5 10^3/uL (0.0-1.0); MONOCYTES % (AUTO) 7 % (0-12); NEUTROPHILS # (AUTO) 5.1 10^3/uL (1.8-7.8); NEUTROPHILS % (AUTO) 70 % (42-75); PLATELET COUNT 236 10^3/uL (130-400); WHITE BLOOD COUNT 7.3 10^3/uL (4.3-11.0)
[2020-06-16 15:15] VITALS: BP 160/82
[2020-06-16 17:56] LABS: BASOPHILS % (AUTO) 0 % (0-10); EOSINOPHILS # (AUTO) 0.1 10^3/uL (0.0-0.3); EOSINOPHILS % (AUTO) 1 % (0-10); HEMATOCRIT 36 % (35-52); LYMPHOCYTES # (AUTO) 1.5 10^3/uL (1.0-4.0); LYMPHOCYTES % (AUTO) 15 % (12-44); MEAN CORPUSCULAR HEMOGLOBIN 32 pg (25-34); MEAN CORPUSCULAR HGB CONC 33 g/dL (32-36); MEAN CORPUSCULAR VOLUME 96 fL (80-99); MONOCYTES # (AUTO) 0.5 10^3/uL (0.0-1.0); MONOCYTES % (AUTO) 5 % (0-12); NEUTROPHILS % (AUTO) 79 % (42-75); PLATELET COUNT 294 10^3/uL (130-400); WHITE BLOOD COUNT 10.1 10^3/uL (4.3-11.0)
[2020-06-16 18:01] LABS: ALBUMIN 3.6 GM/DL (3.2-4.5); CHLORIDE 105 MMOL/L (98-107); SODIUM 139 MMOL/L (135-145)
[2020-06-16 18:02] LABS: CALCIUM 8.7 MG/DL (8.5-10.1)
[2020-06-16 18:03] LABS: GLUCOSE 96 MG/DL (70-105)
[2020-06-16 18:04] LABS: TOTAL PROTEIN 7.1 GM/DL (6.4-8.2)
[2020-06-16 18:05] LABS: BILIRUBIN,TOTAL 0.3 MG/DL (0.1-1.0); CARBON DIOXIDE 26 MMOL/L (21-32)
[2020-06-16 18:07] LABS: ALKALINE PHOSPHATASE 50 U/L (40-136); CREATININE SERUM 0.69 MG/DL (0.60-1.30); GFR ESTIMATED > 60
[2020-06-16 18:08] LABS: BUN/CREATININE RATIO 13
[2020-06-16 18:10] LABS: ALANINE AMINOTRANSFERASE 12 U/L (0-55)
[~2020-06-23] VITALS: Ht 160 cm; Wt 89.6 kg
[2020-06-23 13:05] VITALS: BP 177/89
[2020-06-23 13:54] LABS: BASOPHILS % (AUTO) 0 % (0-10); EOSINOPHILS # (AUTO) 0.1 10^3/uL (0.0-0.3); EOSINOPHILS % (AUTO) 1 % (0-10); HEMATOCRIT 37 % (35-52); HEMOGLOBIN 12.4 g/dL (11.5-16.0); LYMPHOCYTES # (AUTO) 1.3 X 10^3 (1.0-4.0); LYMPHOCYTES % (AUTO) 17 % (12-44); MEAN CORPUSCULAR HEMOGLOBIN 31 pg (25-34); MEAN CORPUSCULAR HGB CONC 34 g/dL (32-36); MEAN CORPUSCULAR VOLUME 92 fL (80-99); MEAN PLATELET VOLUME 9.4 fL (9.0-12.2); MONOCYTES # (AUTO) 0.4 X 10^3 (0.0-1.0); MONOCYTES % (AUTO) 6 % (0-12); NEUTROPHILS # (AUTO) 5.8 X 10^3 (1.8-7.8); NEUTROPHILS % (AUTO) 76 % (42-75); PLATELET COUNT 265 10^3/uL (130-400); WHITE BLOOD COUNT 7.6 10^3/uL (4.3-11.0)
[2020-06-23 14:09] LABS: ALBUMIN 3.7 GM/DL (3.2-4.5); CHLORIDE 106 MMOL/L (98-107); POTASSIUM 3.7 MMOL/L (3.6-5.0); SODIUM 137 MMOL/L (135-145)
[2020-06-23 14:10] LABS: CALCIUM 8.9 MG/DL (8.5-10.1)
[2020-06-23 14:11] LABS: GLUCOSE 177 MG/DL (70-105)
[2020-06-23 14:12] LABS: TOTAL PROTEIN 7.1 GM/DL (6.4-8.2)
[2020-06-23 14:13] LABS: BILIRUBIN,TOTAL 0.3 MG/DL (0.1-1.0); CARBON DIOXIDE 24 MMOL/L (21-32)
[2020-06-23 14:15] LABS: ALKALINE PHOSPHATASE 55 U/L (40-136); CREATININE SERUM 0.63 MG/DL (0.60-1.30); GFR ESTIMATED > 60
[2020-06-23 14:16] LABS: BUN/CREATININE RATIO 19
[2020-06-23 14:18] LABS: ALANINE AMINOTRANSFERASE 15 U/L (0-55)
== END 2020-06-30 14:13 | disposition home or self-care (01) ==
LOC: SDC 13:10
PROVIDERS: ATTEND Internal Medicine
DX: E11.43 Type 2 diabetes mellitus with diabetic autonomic (poly)neuropathy (principal); B37.9 Candidiasis, unspecified; T85.79XA Infection and inflammatory reaction due to other internal prosthetic devices, implants and grafts, initial encounter; Z96.82 Presence of neurostimulator
CPT/HCPCS: 36415; 80053; 85025; 99211

== ENCOUNTER → 2020-06-23 | Outpatient (CLI) | payer MEDICAID | LOC: WOUNDCARE 13:54 | PROVIDERS: ATTEND Surgery | DX: S31.102A Unspecified open wound of abdominal wall, epigastric region without penetration into peritoneal cavity, initial encounter (principal); T81.31XA Disruption of external operation (surgical) wound, not elsewhere classified, initial encounter; L98.493 Non-pressure chronic ulcer of skin of other sites with necrosis of muscle; L98.492 Non-pressure chronic ulcer of skin of other sites with fat layer exposed; E11.622 Type 2 diabetes mellitus with other skin ulcer; E66.01 Morbid (severe) obesity due to excess calories; E11.43 Type 2 diabetes mellitus with diabetic autonomic (poly)neuropathy; K31.84 Gastroparesis; E11.52 Type 2 diabetes mellitus with diabetic peripheral angiopathy with gangrene; X58.XXXA Exposure to other specified factors, initial encounter | CPT/HCPCS: 11042; 11043; 97605 ==

== ENCOUNTER → 2020-06-30 | Outpatient (CLI) | payer MEDICAID | LOC: WOUNDCARE 13:46 | PROVIDERS: ATTEND Surgery | DX: S31.102A Unspecified open wound of abdominal wall, epigastric region without penetration into peritoneal cavity, initial encounter (principal); T81.31XA Disruption of external operation (surgical) wound, not elsewhere classified, initial encounter; L98.493 Non-pressure chronic ulcer of skin of other sites with necrosis of muscle; L98.492 Non-pressure chronic ulcer of skin of other sites with fat layer exposed; E11.622 Type 2 diabetes mellitus with other skin ulcer; E66.01 Morbid (severe) obesity due to excess calories; K31.84 Gastroparesis; E11.52 Type 2 diabetes mellitus with diabetic peripheral angiopathy with gangrene | CPT/HCPCS: 11042; 97605 ==

== ENCOUNTER → 2020-07-07 | Outpatient (CLI) | payer MEDICAID | LOC: WOUNDCARE 13:52 | PROVIDERS: ATTEND Surgery | DX: S31.102A Unspecified open wound of abdominal wall, epigastric region without penetration into peritoneal cavity, initial encounter (principal); I96 Gangrene, not elsewhere classified; T81.31XA Disruption of external operation (surgical) wound, not elsewhere classified, initial encounter; L98.492 Non-pressure chronic ulcer of skin of other sites with fat layer exposed; E11.622 Type 2 diabetes mellitus with other skin ulcer; E66.01 Morbid (severe) obesity due to excess calories; K31.84 Gastroparesis; Z68.35 Body mass index [BMI] 35.0-35.9, adult | CPT/HCPCS: 11042; 97605 ==

== ENCOUNTER 2020-07-10 17:06 | Emergency (ER) | payer MEDICAID ==
[2020-07-10] MEDS ORDERED: HOLD METFORMIN - RECEIVED CONTRAST 20 ML VIAL IV SCH (17:30)
[2020-07-10] MEDS ORDERED: CATHETER FLUSH 10 ML SYR IV PRN (17:30)
[2020-07-10] MEDS ORDERED: NS 100 ML (IVPB) BAG IV ONE (17:30)
[2020-07-10] MEDS ORDERED: IOHEXOL 350 MG/ML 100 ML (OMNIPAQUE 350) VIAL IV ONE (17:30)
--- NOTE | 2020-07-10 17:46 | ED General ---
General Chief Complaint: Skin/Wound Problems Stated Complaint: ABD PAIN,INCISION PAIN Nursing Triage Note: Has a wound vac in place to mid abdomen. Has incision from gastric stimulator removal. Yesterday started having increased pain currently rated at 9/10. Was instructed to come to ED for CT scan and blood work. Has wound care with Dr Dutta. Dr Lenin Zaidi performed surgery on May 30 at [facility]. Nursing Sepsis Screen: No Definite Risk Source of Information: Patient History of Present Illness Date Seen by Provider: Jul 10, 2020 Time Seen by Provider: 17:14 Initial Comments 45-year-old female presenting with concern for increased abdominal pain. She has a wound VAC for abdominal incisional wound to the right mid abdomen. This is an incision from a gastric stimulator that was removed. She states that in the last 2 to 3 days she has had increasing pain. She follows with wound care by Dr. Dutta. Dr. Lenin Zaidi is the surgeon that performed the surgery on May 30 at [facility] in [place]. Patient stated that she was on IV antibiotics or PICC line and had just completed these about 2 weeks previously. She was doing well until the last 2 to 3 days when she has had this increasing pain. Out of concern for possible abscess or infection developing around the wound she was advised to come to the emergency department for evaluation. She has had no fever or chills. She has had nausea and vomiting but has a chronic history of this from gastroparesis and cyclic vomiting. Allergies and Home Medications Allergies Coded Allergies: adhesive tape (Verified Allergy, Unknown, 09/28/18) chlorhexidine (Verified Allergy, Unknown, 07/29/18) fluvoxamine (Verified Allergy, Unknown, 07/29/18) hydromorphone (Verified Allergy, Unknown, 07/29/18) latex (Verified Allergy, Unknown, 07/29/18) meperidine (Verified Allergy, Unknown, 07/29/18) morphine (Verified Allergy, Unknown, 05/19/18) sulfamethoxazole (Verified Allergy, Unknown, 05/19/18) trimethoprim (Verified Allergy, Unknown, 05/19/18) metoclopramide (Unverified Adverse Reaction, Intermediate, Tardive Dyskinesia, 02/02/19) promethazine (Unverified Adverse Reaction, Intermediate, Tardive Dyskinesia, 02/02/19) Home Medications Acetaminophen 500 Mg Tablet, 500 MG PO Q8H PRN for PAIN-BREAKTHROUGH, (Reported) Albuterol Sulfate 1 Puff Puff, 2 PUFF IH Q4H PRN for SHORTNESS OF BREATH, (Reported) 1 PUFF = 90 MCG Dicyclomine HCl 20 Mg Tablet, 20 MG PO BID Prescribed by: SHAE PICHARDO on 11/06/19 1541 Fluconazole 100 Mg Tablet, 100 MG PO DAILY Prescribed by: SHAE PICHARDO on 01/04/20 1632 Insulin Aspart 300 Units/3 Ml Solution, 7 UNITS SQ AC Prescribed by: OSMAR JEROME on 05/23/18 0955 Insulin Detemir 100 Unit/1 Ml Insuln.pen, 20 UNIT SQ HS Prescribed by: OSMAR JEROME on 05/23/18 0955 Ipratropium/Albuterol Sulfate 3 Ml Ampul.neb, 3 ML IH Q4H PRN for SHORTNESS OF BREATH, (Reported) Ketorolac Tromethamine 10 Mg Tablet, 10 MG PO Q6H PRN for PAIN-MODERATE (5-7) Prescribed by: REGINA ROBLES MD on 04/21/19 1344 Lisinopril 20 Mg Tablet, 20 MG PO DAILY Prescribed by: OSMAR JEROME on 05/23/18 0955 Metformin HCl 750 Mg Tab.er.24h, 750 MG PO BID, (Reported) Metoclopramide HCl 10 Mg Tablet, 10 MG PO QID, (Reported) Omeprazole 20 Mg Capsule.dr, 20 MG PO HS, (Reported) Ondansetron 4 Mg Tab.rapdis, 4 MG PO Q4H PRN for NAUSEA/VOMITING-1ST LINE, (Reported) Ondansetron 4 Mg Tab.rapdis, 4 MG PO BID Prescribed by: SHAE PICHARDO on 11/06/19 1541 Promethazine HCl 25 Mg Tablet, 25 MG PO Q6H PRN for NAUSEA/VOMITING, (Reported) Promethazine HCl 25 Mg Tablet, 25 MG PO Q6H PRN for NAUSEA/VOMITING-2ND LINE Prescribed by: ADA IRELAND on 10/09/18 1924 Promethazine HCl 50 Mg Supp.rect, 50 MG RC BID PRN Prescribed by: ALDO GUZMAN on 03/16/19 1331 Sucralfate 1 Gm Tablet, 1 GM PO QID Mixed with 10 mL water to make a slurry. Take 30 minutes before meals and bedtime. Prescribed by: ADA IRELAND on 10/09/181923 Tramadol HCl 50 Mg Tablet, 50 MG PO Q6H PRN for PAIN-MILD, (Reported) Trazodone HCl 150 Mg Tablet, 300 MG PO HS, (Reported) Venlafaxine HCl 150 Mg Tab.er.24, 150 MG PO DAILY, (Reported) Patient Home Medication List Home Medication List Reviewed: Yes Review of Systems Review of Systems Constitutional: No chills, No diaphoresis, No dizziness, No fever; malaise EENTM: no symptoms reported Respiratory: no symptoms reported Cardiovascular: no symptoms reported Gastrointestinal: see HPI, abdominal pain (increased right sided abdominal pain around the wound/wound vac), nausea, vomiting Genitourinary: no symptoms reported Musculoskeletal: no symptoms reported Skin: no symptoms reported; No change in color, No rash Psychiatric/Neurological: Denies Headache Past Gympbbk-Zsmggo-Yykkkp Hx Past Med/Social Hx: Reviewed Nursing Past Med/Soc Hx Patient Social History Alcohol Use: Denies Use Drug of Choice: currently denies use- THC, using CBD oil now Type Used: Cigarettes 2nd Hand Smoke Exposure: Yes Recent Infectious Disease Expo: No Recent Hopitalizations: No Immunizations Up To Date Date of Pneumonia Vaccine: May 19, 2015 Date of Influenza Vaccine: Mar 29, 2018 Seasonal Allergies Seasonal Allergies: Yes Past Medical History Surgeries: Yes (Jejunostomy tube 07/26/19; gastric stimulator; pyloroplasty) Gallbladder, Hysterectomy, Orthopedic Respiratory: Yes (Tobaccoism) Asthma Currently Using CPAP: Yes Currently Using BIPAP: No Cardiac: No Neurological: No Female 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 Disorders: Denies [employer] History: Hysterectomy Sexually Transmitted Disease: No HIV/AIDS: No Genitourinary: No Gastrointestinal: Yes (Gastroparesis; Hepatitis C; possible cyclic vomiting) Gastroesophageal Reflux, Ulcer Musculoskeletal: No Endocrine: Yes Diabetes, Insulin dep HEENT: Yes (wears glasses) Hearing Impairment: Denies Cancer: No Psychosocial: Yes (schizoeffective disorder) Anxiety, Depression Integumentary: No Blood Disorders: No Physical Exam Vital Signs Vital Signs - First Documented 07/10/20 17:09 Temp 37.4 Pulse 86 Resp 18 B/P (MAP) 140/83 (102) Pulse Ox 100 Capillary Refill : Less Than 3 Seconds Height, Weight, BMI Height: 5'2.00" Weight: 184lbs. 7.0oz. 83.182574mk; 32.00 BMI Method:Actual General Appearance: No Apparent Distress, WD/WN HEENT: PERRL/EOMI Neck: Full Range of Motion, Supple Respiratory: Chest Non Tender, Lungs Clear, Normal Breath Sounds, No Accessory Muscle Use, No Respiratory Distress Cardiovascular: Regular Rate, Rhythm, Normal Peripheral Pulses Gastrointestinal: Normal Bowel Sounds, No Pulsatile Mass, Soft; No Distended, No Guarding, No Rebound; Tenderness (right lower abdomen around where she has wound vac in place) Rectal: Deferred Extremity: Normal Capillary Refill, No Pedal Edema Neurologic/Psychiatric: Alert, Oriented x3 Skin: Normal Color (no increased erythema or warmth to abdominal wall), Warm/Dry Focused Exam Lactate Level 07/10/20 18:40: Lactic Acid Level 1.50 Lactic Acid Level Laboratory Tests Test 07/10/20 18:40 Lactic Acid Level 1.50 MMOL/L (0.50-2.00) Progress/Results/Core Measures Suspected Sepsis Recent Fever Within 48 Hours: No Infection Criteria Present: Suspected New Infection New/Unexplained Altered Menta: No Sepsis Screen: No Definite Risk SIRS Temperature: Pulse: 86 Respiratory Rate: 18 Laboratory Tests 07/10/20 18:40: White Blood Count 7.1 Blood Pressure 140 /83 Mean: 102 07/10/20 18:40: Lactic Acid Level 1.50 Laboratory Tests 07/10/20 18:40: Creatinine 0.58L, Platelet Count 233, Total Bilirubin 0.2 Results/Orders Lab Results Laboratory Tests Test 07/10/20 18:40 07/10/20 19:01 Range/Units White Blood Count 7.1 4.3-11.0 10^3/uL Red Blood Count 3.96 L 4.35-5.85 10^6/uL Hemoglobin 12.2 11.5-16.0 G/DL Hematocrit 37 35-52 % Mean Corpuscular Volume 92 80-99 FL Mean Corpuscular Hemoglobin 31 25-34 PG Mean Corpuscular Hemoglobin Concent 33 32-36 G/DL Red Cell Distribution Width 12.9 10.0-14.5 % Platelet Count 233 130-400 10^3/uL Mean Platelet Volume 10.3 7.4-10.4 FL Immature Granulocyte % (Auto) 0 % Neutrophils (%) (Auto) 68 42-75 % Lymphocytes (%) (Auto) 23 12-44 % Monocytes (%) (Auto) 7 0-12 % Eosinophils (%) (Auto) 1 0-10 % Basophils (%) (Auto) 1 0-10 % Neutrophils # (Auto) 4.8 1.8-7.8 X 10^3 Lymphocytes # (Auto) 1.6 1.0-4.0 X 10^3 Monocytes # (Auto) 0.5 0.0-1.0 X 10^3 Eosinophils # (Auto) 0.1 0.0-0.3 10^3/uL Basophils # (Auto) 0.0 0.0-0.1 10^3/uL Immature Granulocyte # (Auto) 0.0 0.0-0.1 10^3/uL Sodium Level 137 135-145 MMOL/L Potassium Level 4.1 3.6-5.0 MMOL/L Chloride Level 102 98-107 MMOL/L Carbon Dioxide Level 27 21-32 MMOL/L Anion Gap 8 5-14 MMOL/L Blood Urea Nitrogen 7 7-18 MG/DL Creatinine 0.58 L 0.60-1.30 MG/DL Estimat Glomerular Filtration Rate > 60 BUN/Creatinine Ratio 12 Glucose Level 116 H 70-105 MG/DL Lactic Acid Level 1.50 0.50-2.00 MMOL/L Calcium Level 8.8 8.5-10.1 MG/DL Corrected Calcium 9.4 8.5-10.1 MG/DL Total Bilirubin 0.2 0.1-1.0 MG/DL Aspartate Amino Transf (AST/SGOT) 26 5-34 U/L Alanine Aminotransferase (ALT/SGPT) 13 0-55 U/L Alkaline Phosphatase 67 40-136 U/L C-Reactive Protein 1.67 H <0.50 MG/DL Total Protein 6.8 6.4-8.2 GM/DL Albumin 3.3 3.2-4.5 GM/DL Lipase 28 8-78 U/L Urine Color YELLOW Urine Clarity CLEAR Urine pH 7.0 5-9 Urine Specific [place] 1.010 L 1.016-1.022 Urine Protein NEGATIVE NEGATIVE Urine Glucose (UA) NEGATIVE NEGATIVE Urine Ketones NEGATIVE NEGATIVE Urine Nitrite NEGATIVE NEGATIVE Urine Bilirubin NEGATIVE NEGATIVE Urine Urobilinogen 0.2 < = 1.0 MG/DL Urine Leukocyte Esterase NEGATIVE NEGATIVE Urine RBC (Auto) NEGATIVE NEGATIVE Urine RBC 0-2 /HPF Urine WBC NONE /HPF Urine Squamous Epithelial Cells 5-10 /HPF Urine Crystals NONE /LPF Urine Bacteria NEGATIVE /HPF Urine Casts NONE /LPF Urine Mucus NEGATIVE /LPF Urine Culture Indicated NO My Orders Orders - MYRIAM REESE MD Comprehensive Metabolic Panel (07/10/20 17:16) Lipase (07/10/20 17:16) Ua Culture If Indicated (07/10/20 17:16) Ed Iv/Invasive Line Start (07/10/20 17:16) Cbc With Automated Diff (07/10/20 17:16) Blood Culture (07/10/20 17:16) Crp Fs (07/10/20 17:16) Lactic Acid Analyzer (07/10/20 17:16) Received Contrast (Hold Metformin- Contr (07/10/20 17:30) Ct Abdomen/Pelvis Wo (07/10/20 17:48) Ns Iv 1000 Ml (Sodium Chloride 0.9%) (07/10/20 18:26) Fentanyl Injection (Sublimaze Injection (07/10/20 18:26) Haloperidol Injection (Haldol Injectio (07/10/20 18:26) Ondansetron Oral Dissolve Tab (Zofran (07/10/20 18:26) Ceftriaxone For Iv Use (Rocephin For I (07/10/20 19:43) Metronidazole Tablet (Flagyl Tablet) (07/10/20 19:43) Vital Signs/I&O 07/10/20 17:09 Temp 37.4 Pulse 86 Resp 18 B/P (MAP) 140/83 (102) Pulse Ox 100 Capillary Refill : Less Than 3 Seconds Blood Pressure Mean: 102 Progress Note #1: Progress Note Check labs and blood cultures. Obtain CRP with a lactic acid to look for signs of infection. Order a CT scan of the abdomen and pelvis to look for fluid collection or abscess. For her pain give an extra dose of fentanyl. In terms of nausea and vomiting try a dose of haloperidol and ODT Zofran. Unable to obtain IV access could not to give IV contrast in the upper ex tremities so the CT scan was changed to a noncontrast study. The differential diagnosis would include abdominal wall abscess, perioperative wound abscess, abdominal wall strain, recurrent MRSA infection Progress Note #2: Progress Note Labs show stable CBC without elevated white blood cell count. Her white blood cell count was 7.1. She had stable chemistry as well. Her lactic acid was normal at 1.5. The CRP was slightly elevated at 1.67. Her CT scan without contrast came back showing stranding around her abdominal wound but no fluid collection or abscess. [address] Daigle the on-call doctor for Dr. Zaidi, and he felt with the labs stable and no definite abscess will treat with a dose of antibiotics tonight and have cultures pending. Check with Dr. Zaidi tomorrow to see if he wants to continue antibiotic or how he wants to manage her increased pain and stranding. Diagnostic Imaging Diagonstic Imaging: CT Plain Films/CT/US/NM/MRI: abdomen, pelvis Comments NAME: MILLER IRIZARRY [facility] REC#: [id number] PT STATUS: REG ER : 1975 PHYSICIAN: MYRIAM REESE MD ADMIT DATE: 07/10/20/ER FS Draft Date of Exam:07/10/20 CT ABDOMEN/PELVIS WO PROCEDURE: CT abdomen and pelvis without contrast. TECHNIQUE: Multiple contiguous axial images were obtained through the abdomen and pelvis without the use of intravenous contrast. Auto Exposure Controls were utilized during the CT exam to meet ALARA standards for radiation dose reduction. DATE: July 10, 2020. COMPARISON: CT abdomen and pelvis March 26, 2020. INDICATION: CT abdomen and pelvis March 26, 2020. FINDINGS: There are limitations for evaluation of the abdominal organs, neoplastic processes, abscess and limited evaluation of the vasculature relating to the lack of intravenous contrast. The visualized portions of the lung bases are clear. The heart is not enlarged. There is no pericardial effusion. The liver is unremarkable in size and contour. The patient is status post cholecystectomy. There is no biliary ductal dilation. The main pancreatic duct is not abnormally dilated. Limited noncontrast evaluation of the pancreatic parenchyma is unremarkable. The spleen is normal in size. The adrenal glands are unremarkable. There are punctate nonobstructing renal stones, bilaterally. The urinary collecting systems are not distended. There is no identified ureteral stone. The urinary bladder is unremarkable. The uterus is not seen and may be surgically absent. The intestinal tract is not distended. The appendix is unremarkable. There is no free intraperineal air. There is no free pelvic fluid. There is a right anterior abdominal wall skin defect extending near the abdominal wall musculature on the right and towards midline. There also appears to be a skin defect anteriorly. There is adjacent abnormal attenuation. There is adjacent inflammatory stranding. There is no separately identified fluid collection. There is no identified acute bony abnormality. IMPRESSION: CT abdomen and pelvis: 1. Anterior abdominal wall skin defects extending near the abdominal wall musculature with adjacent abnormal attenuation and stranding. 2. No identified acute abnormality specifically within the abdomen or pelvis. Dictated on workstation # [id number] Dict: 07/10/20 184 Trans: 07/10/201847 PJE [id number] Interpreted by: EB LU MD Electronically signed by: Departure Impression Primary Impression: Right sided abdominal pain Additional Impression: Post-operative pain Disposition: HOME, SELF-CARE Condition: Stable Departure-Patient Inst. Decision time for Depature: 19:49 Referrals: GLORY LINARES MD (PCP/Family) Primary Care Physician Patient Instructions: Abdominal Pain, Adult ED, Postoperative Pain (DC) Add. Discharge Instructions: The dose of antibiotics from [facility] will give you time to check with Dr. Zaidi about how he wants to proceed with your wound care and increased pain. Check with him and his clinic if you have not heard from them by mid to late morning. If he wants you to continue IV antibiotics he will have to set up a PICC line placement and home health for antibiotics. All discharge instructions reviewed with patient and/or family. Voiced unde rstanding. MYRIAM REESE MD Jul 10, 2020 17:46
[2020-07-10] MEDS ORDERED: HALOPERIDOL 5 MG/ML (HALDOL) VIAL IV STA (18:26)
[2020-07-10] MEDS ORDERED: NS IV 1000 ML 1,000 ML IV STA (18:26)
[2020-07-10] MEDS ORDERED: fentaNYL INJ 100 MCG/2 ML AMP IVP STA (18:26)
[2020-07-10] MEDS ORDERED: ONDANSETRON 4 MG (ZOFRAN) ORAL DISSOLVE TAB PO STA (18:26)
--- NOTE | 2020-07-10 18:49 | Diagnostic Imaging Report ---
PROCEDURE: CT abdomen and pelvis without contrast. TECHNIQUE: Multiple contiguous axial images were obtained through the abdomen and pelvis without the use of intravenous contrast. Auto Exposure Controls were utilized during the CT exam to meet ALARA standards for radiation dose reduction. DATE: July 10, 2020. COMPARISON: CT abdomen and pelvis March 26, 2020. INDICATION: CT abdomen and pelvis March 26, 2020. FINDINGS: There are limitations for evaluation of the abdominal organs, neoplastic processes, abscess and limited evaluation of the vasculature relating to the lack of intravenous contrast. The visualized portions of the lung bases are clear. The heart is not enlarged. There is no pericardial effusion. The liver is unremarkable in size and contour. The patient is status post cholecystectomy. There is no biliary ductal dilation. The main pancreatic duct is not abnormally dilated. Limited noncontrast evaluation of the pancreatic parenchyma is unremarkable. The spleen is normal in size. The adrenal glands are unremarkable. There are punctate nonobstructing renal stones, bilaterally. The urinary collecting systems are not distended. There is no identified ureteral stone. The urinary bladder is unremarkable. The uterus is not seen and may be surgically absent. The intestinal tract is not distended. The appendix is unremarkable. There is no free intraperineal air. There is no free pelvic fluid. There is a right anterior abdominal wall skin defect extending near the abdominal wall musculature on the right and towards midline. There also appears to be a skin defect anteriorly. There is adjacent abnormal attenuation. There is adjacent inflammatory stranding. There is no separately identified fluid collection. There is no identified acute bony abnormality. IMPRESSION: CT abdomen and pelvis: 1. Anterior abdominal wall skin defects extending near the abdominal wall musculature with adjacent abnormal attenuation and stranding. 2. No identified acute abnormality specifically within the abdomen or pelvis. Dictated by: Dictated on workstation # [id number]
[2020-07-10 18:53] LABS: BASOPHILS % (AUTO) 1 % (0-10); EOSINOPHILS % (AUTO) 1 % (0-10); HEMATOCRIT 37 % (35-52); HEMOGLOBIN 12.2 G/DL (11.5-16.0); LYMPHOCYTES % (AUTO) 23 % (12-44); MEAN CORPUSCULAR HEMOGLOBIN 31 PG (25-34); MEAN CORPUSCULAR HGB CONC 33 G/DL (32-36); MEAN CORPUSCULAR VOLUME 92 FL (80-99); MEAN PLATELET VOLUME 10.3 FL (7.4-10.4); MONOCYTES % (AUTO) 7 % (0-12); NEUTROPHILS % (AUTO) 68 % (42-75); PLATELET COUNT 233 10^3/uL (130-400); WHITE BLOOD COUNT 7.1 10^3/uL (4.3-11.0)
[2020-07-10 18:54] LABS: EOSINOPHILS # (AUTO) 0.1 10^3/uL (0.0-0.3); LYMPHOCYTES # (AUTO) 1.6 X 10^3 (1.0-4.0); MONOCYTES # (AUTO) 0.5 X 10^3 (0.0-1.0); NEUTROPHILS # (AUTO) 4.8 X 10^3 (1.8-7.8)
[2020-07-10 19:15] LABS: ALANINE AMINOTRANSFERASE 13 U/L (0-55); ALBUMIN 3.3 GM/DL (3.2-4.5); ALKALINE PHOSPHATASE 67 U/L (40-136); BILIRUBIN,TOTAL 0.2 MG/DL (0.1-1.0); BUN/CREATININE RATIO 12; CALCIUM 8.8 MG/DL (8.5-10.1); CARBON DIOXIDE 27 MMOL/L (21-32); CHLORIDE 102 MMOL/L (98-107); CREATININE SERUM 0.58 MG/DL (0.60-1.30); GFR ESTIMATED > 60; GLUCOSE 116 MG/DL (70-105); POTASSIUM 4.1 MMOL/L (3.6-5.0); SODIUM 137 MMOL/L (135-145); TOTAL PROTEIN 6.8 GM/DL (6.4-8.2)
[2020-07-10 19:16] LABS: LIPASE 28 U/L (8-78)
[2020-07-10 19:23] LABS: BACTERIA,URINE NEGATIVE /HPF; BILIRUBIN,URINE NEGATIVE (NEGATIVE); CLARITY,URINE CLEAR; COLOR,URINE YELLOW; GLUCOSE, URINE (UA) NEGATIVE (NEGATIVE); KETONES,URINE NEGATIVE (NEGATIVE); LEUKOCYTE ESTERASE ,URINE NEGATIVE (NEGATIVE); NITRITE,URINE NEGATIVE (NEGATIVE); PROTEIN,URINE NEGATIVE (NEGATIVE); RBC,URINE 0-2 /HPF
[2020-07-10] MEDS ORDERED: cefTRIAXone FOR IV USE 2,000 MG in WATER (STERILE) FOR INJECTION 20 ML IV STA (19:43)
[2020-07-10] MEDS ORDERED: metroNIDAZOLE 500 MG (FLAGYL) TAB PO STA (19:43)
[2020-07-10 20:25] VITALS: BP 144/93
== END 2020-07-10 20:32 | disposition home or self-care (01) ==
LOC: EDUNIT# 17:06 → ER FS 17:07
DX: R10.31 Right lower quadrant pain (principal); G89.18 Other acute postprocedural pain; I10 Essential (primary) hypertension; J45.909 Unspecified asthma, uncomplicated; E11.9 Type 2 diabetes mellitus without complications; K21.9 Gastro-esophageal reflux disease without esophagitis; F32.9 Major depressive disorder, single episode, unspecified; F41.9 Anxiety disorder, unspecified; Z77.22 Contact with and (suspected) exposure to environmental tobacco smoke (acute) (chronic); Z91.040 Latex allergy status; Z88.5 Allergy status to narcotic agent; Z88.1 Allergy status to other antibiotic agents; Z88.2 Allergy status to sulfonamides; Z88.8 Allergy status to other drugs, medicaments and biological substances; Z79.4 Long term (current) use of insulin
CPT/HCPCS: 36415; 74176; 80053; 81000; 83605; 83690; 85025; 86141; 87040

== ENCOUNTER → 2020-07-14 | Outpatient (CLI) | payer MEDICAID | LOC: WOUNDCARE 13:16 | PROVIDERS: ATTEND Surgery | DX: S31.102A Unspecified open wound of abdominal wall, epigastric region without penetration into peritoneal cavity, initial encounter (principal); T81.31XA Disruption of external operation (surgical) wound, not elsewhere classified, initial encounter; L98.492 Non-pressure chronic ulcer of skin of other sites with fat layer exposed; E11.622 Type 2 diabetes mellitus with other skin ulcer; E66.01 Morbid (severe) obesity due to excess calories; E11.43 Type 2 diabetes mellitus with diabetic autonomic (poly)neuropathy; K31.84 Gastroparesis; E11.52 Type 2 diabetes mellitus with diabetic peripheral angiopathy with gangrene | CPT/HCPCS: 11042; 36415; 83036; 97605 ==

== ENCOUNTER → 2020-07-14 | Outpatient (CLI) | payer MEDICAID | LOC: LAB FS 16:03 | PROVIDERS: ATTEND Surgery | DX: S31.102A Unspecified open wound of abdominal wall, epigastric region without penetration into peritoneal cavity, initial encounter (principal); T81.31XA Disruption of external operation (surgical) wound, not elsewhere classified, initial encounter; L98.492 Non-pressure chronic ulcer of skin of other sites with fat layer exposed; E11.622 Type 2 diabetes mellitus with other skin ulcer; E66.01 Morbid (severe) obesity due to excess calories; K31.84 Gastroparesis; X58.XXXA Exposure to other specified factors, initial encounter ==

== ENCOUNTER → 2020-07-21 | Outpatient (CLI) | payer MEDICAID | LOC: WOUNDCARE 13:56 | PROVIDERS: ATTEND Surgery | DX: S31.102A Unspecified open wound of abdominal wall, epigastric region without penetration into peritoneal cavity, initial encounter (principal); T81.31XA Disruption of external operation (surgical) wound, not elsewhere classified, initial encounter; L98.492 Non-pressure chronic ulcer of skin of other sites with fat layer exposed; E11.622 Type 2 diabetes mellitus with other skin ulcer; E66.01 Morbid (severe) obesity due to excess calories; E11.43 Type 2 diabetes mellitus with diabetic autonomic (poly)neuropathy; K31.84 Gastroparesis; I96 Gangrene, not elsewhere classified; Z68.35 Body mass index [BMI] 35.0-35.9, adult | CPT/HCPCS: 11042; 97605 ==

== ENCOUNTER → 2020-07-28 | Outpatient (CLI) | payer MEDICAID | LOC: WOUNDCARE 13:43 | PROVIDERS: ATTEND Surgery | DX: S31.102A Unspecified open wound of abdominal wall, epigastric region without penetration into peritoneal cavity, initial encounter (principal); I96 Gangrene, not elsewhere classified; T81.31XA Disruption of external operation (surgical) wound, not elsewhere classified, initial encounter; L98.492 Non-pressure chronic ulcer of skin of other sites with fat layer exposed; E11.622 Type 2 diabetes mellitus with other skin ulcer; E66.01 Morbid (severe) obesity due to excess calories; E11.43 Type 2 diabetes mellitus with diabetic autonomic (poly)neuropathy; K31.84 Gastroparesis | CPT/HCPCS: 11042; 97605 ==

== ENCOUNTER → 2020-08-04 | Outpatient (CLI) | payer MEDICAID | LOC: WOUNDCARE 13:25 | PROVIDERS: ATTEND Surgery | DX: S31.102A Unspecified open wound of abdominal wall, epigastric region without penetration into peritoneal cavity, initial encounter (principal); T81.31XA Disruption of external operation (surgical) wound, not elsewhere classified, initial encounter; I96 Gangrene, not elsewhere classified; L98.492 Non-pressure chronic ulcer of skin of other sites with fat layer exposed; E11.622 Type 2 diabetes mellitus with other skin ulcer; E66.01 Morbid (severe) obesity due to excess calories; K31.84 Gastroparesis; Z68.35 Body mass index [BMI] 35.0-35.9, adult | CPT/HCPCS: 11042 ==

== ENCOUNTER → 2020-08-11 | Outpatient (CLI) | payer MEDICAID | LOC: WOUNDCARE 13:51 | PROVIDERS: ATTEND Surgery | DX: S31.102A Unspecified open wound of abdominal wall, epigastric region without penetration into peritoneal cavity, initial encounter (principal); I96 Gangrene, not elsewhere classified; T81.31XA Disruption of external operation (surgical) wound, not elsewhere classified, initial encounter; L98.492 Non-pressure chronic ulcer of skin of other sites with fat layer exposed; E11.622 Type 2 diabetes mellitus with other skin ulcer; E66.01 Morbid (severe) obesity due to excess calories; E11.43 Type 2 diabetes mellitus with diabetic autonomic (poly)neuropathy; K31.84 Gastroparesis; Z68.35 Body mass index [BMI] 35.0-35.9, adult | CPT/HCPCS: 11042 ==

== ENCOUNTER → 2020-08-18 | Outpatient (CLI) | payer MEDICAID | LOC: WOUNDCARE 13:47 | PROVIDERS: ATTEND Surgery | DX: E11.52 Type 2 diabetes mellitus with diabetic peripheral angiopathy with gangrene (principal); E11.622 Type 2 diabetes mellitus with other skin ulcer; I96 Gangrene, not elsewhere classified; S31.102A Unspecified open wound of abdominal wall, epigastric region without penetration into peritoneal cavity, initial encounter; T81.31XA Disruption of external operation (surgical) wound, not elsewhere classified, initial encounter; L98.492 Non-pressure chronic ulcer of skin of other sites with fat layer exposed; E66.01 Morbid (severe) obesity due to excess calories; E11.43 Type 2 diabetes mellitus with diabetic autonomic (poly)neuropathy; K31.84 Gastroparesis; Z68.35 Body mass index [BMI] 35.0-35.9, adult | CPT/HCPCS: 11042 ==

== ENCOUNTER → 2020-08-25 | Outpatient (CLI) | payer MEDICAID | LOC: WOUNDCARE 13:55 | PROVIDERS: ATTEND Surgery | DX: E11.52 Type 2 diabetes mellitus with diabetic peripheral angiopathy with gangrene (principal); E11.622 Type 2 diabetes mellitus with other skin ulcer; E11.43 Type 2 diabetes mellitus with diabetic autonomic (poly)neuropathy; K31.84 Gastroparesis; I96 Gangrene, not elsewhere classified; S31.102A Unspecified open wound of abdominal wall, epigastric region without penetration into peritoneal cavity, initial encounter; T81.31XA Disruption of external operation (surgical) wound, not elsewhere classified, initial encounter; L98.492 Non-pressure chronic ulcer of skin of other sites with fat layer exposed; E66.01 Morbid (severe) obesity due to excess calories; Z68.35 Body mass index [BMI] 35.0-35.9, adult | CPT/HCPCS: 11042 ==

== ENCOUNTER → 2020-09-08 | Outpatient (CLI) | payer MEDICAID | LOC: WOUNDCARE 14:09 | PROVIDERS: ATTEND Surgery | DX: E11.52 Type 2 diabetes mellitus with diabetic peripheral angiopathy with gangrene (principal); E11.622 Type 2 diabetes mellitus with other skin ulcer; I96 Gangrene, not elsewhere classified; S31.102A Unspecified open wound of abdominal wall, epigastric region without penetration into peritoneal cavity, initial encounter; T81.31XA Disruption of external operation (surgical) wound, not elsewhere classified, initial encounter; L98.492 Non-pressure chronic ulcer of skin of other sites with fat layer exposed; E66.01 Morbid (severe) obesity due to excess calories; E11.43 Type 2 diabetes mellitus with diabetic autonomic (poly)neuropathy; K31.84 Gastroparesis; B18.2 Chronic viral hepatitis C; Z68.35 Body mass index [BMI] 35.0-35.9, adult | CPT/HCPCS: 11042 ==

== ENCOUNTER → 2020-09-15 | Outpatient (CLI) | payer MEDICAID | LOC: WOUNDCARE 13:27 | PROVIDERS: ATTEND Surgery | DX: S31.102A Unspecified open wound of abdominal wall, epigastric region without penetration into peritoneal cavity, initial encounter (principal); T81.31XA Disruption of external operation (surgical) wound, not elsewhere classified, initial encounter; L98.492 Non-pressure chronic ulcer of skin of other sites with fat layer exposed; E11.622 Type 2 diabetes mellitus with other skin ulcer; E66.01 Morbid (severe) obesity due to excess calories; K31.84 Gastroparesis; B18.2 Chronic viral hepatitis C; E11.52 Type 2 diabetes mellitus with diabetic peripheral angiopathy with gangrene | CPT/HCPCS: 11042 ==

== ENCOUNTER → 2020-09-30 | Outpatient (CLI) | payer MEDICAID | LOC: WOUNDCARE 13:29 | PROVIDERS: ATTEND Surgery | DX: S31.102A Unspecified open wound of abdominal wall, epigastric region without penetration into peritoneal cavity, initial encounter (principal); I96 Gangrene, not elsewhere classified; T81.31XA Disruption of external operation (surgical) wound, not elsewhere classified, initial encounter; L98.492 Non-pressure chronic ulcer of skin of other sites with fat layer exposed; E11.622 Type 2 diabetes mellitus with other skin ulcer; E66.01 Morbid (severe) obesity due to excess calories; K31.84 Gastroparesis; B18.2 Chronic viral hepatitis C; T65.222A Toxic effect of tobacco cigarettes, intentional self-harm, initial encounter; F17.218 Nicotine dependence, cigarettes, with other nicotine-induced disorders; Z68.35 Body mass index [BMI] 35.0-35.9, adult | CPT/HCPCS: 11042 ==

== ENCOUNTER → 2020-10-06 | Outpatient (CLI) | payer MEDICAID | LOC: WOUNDCARE 13:35 | PROVIDERS: ATTEND Surgery | DX: B35.6 Tinea cruris (principal); S31.102A Unspecified open wound of abdominal wall, epigastric region without penetration into peritoneal cavity, initial encounter; T81.31XA Disruption of external operation (surgical) wound, not elsewhere classified, initial encounter; L98.492 Non-pressure chronic ulcer of skin of other sites with fat layer exposed; E11.622 Type 2 diabetes mellitus with other skin ulcer; E66.01 Morbid (severe) obesity due to excess calories; K31.84 Gastroparesis; B18.2 Chronic viral hepatitis C; T65.222A Toxic effect of tobacco cigarettes, intentional self-harm, initial encounter; E11.52 Type 2 diabetes mellitus with diabetic peripheral angiopathy with gangrene; F17.218 Nicotine dependence, cigarettes, with other nicotine-induced disorders | CPT/HCPCS: 11042 ==

== ENCOUNTER → 2020-10-13 | Outpatient (CLI) | payer MEDICAID | LOC: WOUNDCARE 13:45 | PROVIDERS: ATTEND Surgery | DX: S31.602 Unspecified open wound of abdominal wall, epigastric region with penetration into peritoneal cavity (principal); T81.31XA Disruption of external operation (surgical) wound, not elsewhere classified, initial encounter; L98.492 Non-pressure chronic ulcer of skin of other sites with fat layer exposed; E11.622 Type 2 diabetes mellitus with other skin ulcer; E66.01 Morbid (severe) obesity due to excess calories; K31.84 Gastroparesis; B18.2 Chronic viral hepatitis C; T65.222A Toxic effect of tobacco cigarettes, intentional self-harm, initial encounter; E11.52 Type 2 diabetes mellitus with diabetic peripheral angiopathy with gangrene; F17.218 Nicotine dependence, cigarettes, with other nicotine-induced disorders | CPT/HCPCS: 11042 ==

== ENCOUNTER → 2020-10-20 | Outpatient (CLI) | payer MEDICAID | LOC: WOUNDCARE 13:47 | PROVIDERS: ATTEND Surgery | DX: S31.102A Unspecified open wound of abdominal wall, epigastric region without penetration into peritoneal cavity, initial encounter (principal); T81.31XA Disruption of external operation (surgical) wound, not elsewhere classified, initial encounter; L98.492 Non-pressure chronic ulcer of skin of other sites with fat layer exposed; E11.622 Type 2 diabetes mellitus with other skin ulcer; E66.01 Morbid (severe) obesity due to excess calories; K31.84 Gastroparesis; B18.2 Chronic viral hepatitis C; T65.222A Toxic effect of tobacco cigarettes, intentional self-harm, initial encounter; E11.52 Type 2 diabetes mellitus with diabetic peripheral angiopathy with gangrene; F17.218 Nicotine dependence, cigarettes, with other nicotine-induced disorders | CPT/HCPCS: 99213 ==

== ENCOUNTER → 2020-11-03 | Outpatient (CLI) | payer MEDICAID | LOC: WOUNDCARE 12:10 | PROVIDERS: ATTEND Surgery | DX: S31.102A Unspecified open wound of abdominal wall, epigastric region without penetration into peritoneal cavity, initial encounter (principal); T81.31XA Disruption of external operation (surgical) wound, not elsewhere classified, initial encounter; L98.492 Non-pressure chronic ulcer of skin of other sites with fat layer exposed; E11.622 Type 2 diabetes mellitus with other skin ulcer; E66.01 Morbid (severe) obesity due to excess calories; K31.84 Gastroparesis; B18.2 Chronic viral hepatitis C; T65.222A Toxic effect of tobacco cigarettes, intentional self-harm, initial encounter; E11.52 Type 2 diabetes mellitus with diabetic peripheral angiopathy with gangrene; F17.218 Nicotine dependence, cigarettes, with other nicotine-induced disorders | CPT/HCPCS: 99213 ==

== ENCOUNTER → 2020-11-10 | Outpatient (CLI) | payer MEDICAID | LOC: WOUNDCARE 13:52 | PROVIDERS: ATTEND Surgery | DX: S31.102A Unspecified open wound of abdominal wall, epigastric region without penetration into peritoneal cavity, initial encounter (principal); T81.31XA Disruption of external operation (surgical) wound, not elsewhere classified, initial encounter; L98.492 Non-pressure chronic ulcer of skin of other sites with fat layer exposed; E11.622 Type 2 diabetes mellitus with other skin ulcer; E66.01 Morbid (severe) obesity due to excess calories; K31.84 Gastroparesis; B18.2 Chronic viral hepatitis C; E11.52 Type 2 diabetes mellitus with diabetic peripheral angiopathy with gangrene | CPT/HCPCS: 11042 ==

== ENCOUNTER → 2020-11-17 | Outpatient (CLI) | payer MEDICAID | LOC: WOUNDCARE 14:08 | PROVIDERS: ATTEND Surgery | DX: S31.102A Unspecified open wound of abdominal wall, epigastric region without penetration into peritoneal cavity, initial encounter (principal); I96 Gangrene, not elsewhere classified; T81.31XA Disruption of external operation (surgical) wound, not elsewhere classified, initial encounter; L98.492 Non-pressure chronic ulcer of skin of other sites with fat layer exposed; E11.622 Type 2 diabetes mellitus with other skin ulcer; E66.01 Morbid (severe) obesity due to excess calories; K31.84 Gastroparesis; B18.2 Chronic viral hepatitis C; Z68.35 Body mass index [BMI] 35.0-35.9, adult | CPT/HCPCS: 11042 ==

== ENCOUNTER → 2020-11-24 | Outpatient (CLI) | payer MEDICAID | LOC: WOUNDCARE 13:25 | PROVIDERS: ATTEND Surgery | DX: S31.102A Unspecified open wound of abdominal wall, epigastric region without penetration into peritoneal cavity, initial encounter (principal); T81.31XA Disruption of external operation (surgical) wound, not elsewhere classified, initial encounter; L98.492 Non-pressure chronic ulcer of skin of other sites with fat layer exposed; E11.622 Type 2 diabetes mellitus with other skin ulcer; E66.01 Morbid (severe) obesity due to excess calories; K31.84 Gastroparesis; B18.2 Chronic viral hepatitis C; E11.52 Type 2 diabetes mellitus with diabetic peripheral angiopathy with gangrene | CPT/HCPCS: 11042 ==

== ENCOUNTER → 2020-12-08 | Outpatient (CLI) | payer MEDICAID | LOC: WOUNDCARE 14:04 | PROVIDERS: ATTEND Surgery | DX: S31.102A Unspecified open wound of abdominal wall, epigastric region without penetration into peritoneal cavity, initial encounter (principal); T81.31XA Disruption of external operation (surgical) wound, not elsewhere classified, initial encounter; L98.492 Non-pressure chronic ulcer of skin of other sites with fat layer exposed; E11.622 Type 2 diabetes mellitus with other skin ulcer; E66.01 Morbid (severe) obesity due to excess calories; K31.84 Gastroparesis; B18.2 Chronic viral hepatitis C; E11.52 Type 2 diabetes mellitus with diabetic peripheral angiopathy with gangrene | CPT/HCPCS: 11042 ==

== ENCOUNTER → 2020-12-15 | Outpatient (CLI) | payer MEDICAID | LOC: WOUNDCARE 13:26 | PROVIDERS: ATTEND Surgery | DX: S31.102A Unspecified open wound of abdominal wall, epigastric region without penetration into peritoneal cavity, initial encounter (principal); T65.222A Toxic effect of tobacco cigarettes, intentional self-harm, initial encounter; L98.492 Non-pressure chronic ulcer of skin of other sites with fat layer exposed; E11.622 Type 2 diabetes mellitus with other skin ulcer; E66.01 Morbid (severe) obesity due to excess calories; K31.84 Gastroparesis; B18.2 Chronic viral hepatitis C; E11.52 Type 2 diabetes mellitus with diabetic peripheral angiopathy with gangrene | CPT/HCPCS: 11042 ==

== ENCOUNTER → 2020-12-22 | Outpatient (CLI) | payer MEDICAID | LOC: WOUNDCARE 12:44 | PROVIDERS: ATTEND Surgery | DX: S31.102A Unspecified open wound of abdominal wall, epigastric region without penetration into peritoneal cavity, initial encounter (principal); I96 Gangrene, not elsewhere classified; T81.31XA Disruption of external operation (surgical) wound, not elsewhere classified, initial encounter; L98.492 Non-pressure chronic ulcer of skin of other sites with fat layer exposed; E11.622 Type 2 diabetes mellitus with other skin ulcer; E66.01 Morbid (severe) obesity due to excess calories; K31.84 Gastroparesis; B18.2 Chronic viral hepatitis C; Z68.35 Body mass index [BMI] 35.0-35.9, adult | CPT/HCPCS: 11042 ==

== ENCOUNTER → 2020-12-25 | Outpatient (CLI) | payer MEDICAID ==
--- NOTE | 2020-12-25 16:27 | Diagnostic Imaging Report ---
Indication: Constipation with intermittent diarrhea Supine and upright views of the abdomen were obtained which shows a normal bowel gas pattern. There is no intramural or free intraperitoneal air seen. There is no mass or calculus. There is no bony abnormality. IMPRESSION: No abnormality is seen. Dictated by: Dictated on workstation # [id number]
== END ==
LOC: RAD FS 16:00
DX: K59.00 Constipation, unspecified (principal); R19.7 Diarrhea, unspecified
CPT/HCPCS: 74019

== ENCOUNTER → 2021-01-05 | Outpatient (CLI) | payer MEDICAID | LOC: WOUNDCARE 13:38 | PROVIDERS: ATTEND Surgery | DX: S31.102A Unspecified open wound of abdominal wall, epigastric region without penetration into peritoneal cavity, initial encounter (principal); I96 Gangrene, not elsewhere classified; T81.31XA Disruption of external operation (surgical) wound, not elsewhere classified, initial encounter; L98.492 Non-pressure chronic ulcer of skin of other sites with fat layer exposed; E11.622 Type 2 diabetes mellitus with other skin ulcer; K31.84 Gastroparesis; B18.2 Chronic viral hepatitis C; E66.01 Morbid (severe) obesity due to excess calories; Z68.35 Body mass index [BMI] 35.0-35.9, adult | CPT/HCPCS: 11042 ==

== ENCOUNTER → 2021-01-12 | Outpatient (CLI) | payer MEDICAID | LOC: WOUNDCARE 08:25 | PROVIDERS: ATTEND Surgery | DX: S31.102A Unspecified open wound of abdominal wall, epigastric region without penetration into peritoneal cavity, initial encounter (principal); T81.31XA Disruption of external operation (surgical) wound, not elsewhere classified, initial encounter; L98.492 Non-pressure chronic ulcer of skin of other sites with fat layer exposed; E11.622 Type 2 diabetes mellitus with other skin ulcer; K31.84 Gastroparesis; B18.2 Chronic viral hepatitis C; E66.01 Morbid (severe) obesity due to excess calories; Z68.35 Body mass index [BMI] 35.0-35.9, adult | CPT/HCPCS: 11042 ==

== ENCOUNTER → 2021-01-19 | Outpatient (CLI) | payer MEDICAID | LOC: WOUNDCARE 13:21 | PROVIDERS: ATTEND Surgery | DX: S31.102A Unspecified open wound of abdominal wall, epigastric region without penetration into peritoneal cavity, initial encounter (principal); T81.31XA Disruption of external operation (surgical) wound, not elsewhere classified, initial encounter; L98.492 Non-pressure chronic ulcer of skin of other sites with fat layer exposed; E11.622 Type 2 diabetes mellitus with other skin ulcer; E66.01 Morbid (severe) obesity due to excess calories; K31.84 Gastroparesis; B18.2 Chronic viral hepatitis C; Z68.35 Body mass index [BMI] 35.0-35.9, adult | CPT/HCPCS: 11042 ==

== ENCOUNTER → 2021-01-26 | Outpatient (CLI) | payer MEDICAID | LOC: WOUNDCARE 13:24 | PROVIDERS: ATTEND Surgery | DX: S31.102A Unspecified open wound of abdominal wall, epigastric region without penetration into peritoneal cavity, initial encounter (principal); I96 Gangrene, not elsewhere classified; T81.31XA Disruption of external operation (surgical) wound, not elsewhere classified, initial encounter; L98.492 Non-pressure chronic ulcer of skin of other sites with fat layer exposed; E11.622 Type 2 diabetes mellitus with other skin ulcer; E66.01 Morbid (severe) obesity due to excess calories; K31.84 Gastroparesis; B18.2 Chronic viral hepatitis C; Z68.35 Body mass index [BMI] 35.0-35.9, adult | CPT/HCPCS: 11042 ==

== ENCOUNTER → 2021-02-02 | Outpatient (CLI) | payer MEDICAID | LOC: WOUNDCARE 13:16 | PROVIDERS: ATTEND Surgery | DX: S31.102A Unspecified open wound of abdominal wall, epigastric region without penetration into peritoneal cavity, initial encounter (principal); E11.52 Type 2 diabetes mellitus with diabetic peripheral angiopathy with gangrene; T81.31XA Disruption of external operation (surgical) wound, not elsewhere classified, initial encounter; L98.492 Non-pressure chronic ulcer of skin of other sites with fat layer exposed; E11.622 Type 2 diabetes mellitus with other skin ulcer; K31.84 Gastroparesis; B18.2 Chronic viral hepatitis C | CPT/HCPCS: 11042 ==

== ENCOUNTER → 2021-02-09 | Outpatient (CLI) | payer MEDICAID | LOC: WOUNDCARE 13:34 | PROVIDERS: ATTEND Family Medicine | DX: S31.102A Unspecified open wound of abdominal wall, epigastric region without penetration into peritoneal cavity, initial encounter (principal); I96 Gangrene, not elsewhere classified; L98.492 Non-pressure chronic ulcer of skin of other sites with fat layer exposed; E11.622 Type 2 diabetes mellitus with other skin ulcer; E66.01 Morbid (severe) obesity due to excess calories; K31.84 Gastroparesis; B18.2 Chronic viral hepatitis C; T81.31XD Disruption of external operation (surgical) wound, not elsewhere classified, subsequent encounter; B37.9 Candidiasis, unspecified | CPT/HCPCS: 11042 ==

== ENCOUNTER → 2021-02-13 | Outpatient (CLI) | payer MEDICAID | LOC: WOUNDCARE 10:24 | PROVIDERS: ATTEND Family Medicine | DX: S31.102A Unspecified open wound of abdominal wall, epigastric region without penetration into peritoneal cavity, initial encounter (principal); L98.492 Non-pressure chronic ulcer of skin of other sites with fat layer exposed; E11.622 Type 2 diabetes mellitus with other skin ulcer; E66.01 Morbid (severe) obesity due to excess calories; E11.43 Type 2 diabetes mellitus with diabetic autonomic (poly)neuropathy; K31.84 Gastroparesis; B18.2 Chronic viral hepatitis C; T81.31XD Disruption of external operation (surgical) wound, not elsewhere classified, subsequent encounter | CPT/HCPCS: 99213 ==

== ENCOUNTER → 2021-02-16 | Outpatient (CLI) | payer MEDICAID | LOC: WOUNDCARE 13:43 | PROVIDERS: ATTEND Family Medicine | DX: S31.102A Unspecified open wound of abdominal wall, epigastric region without penetration into peritoneal cavity, initial encounter (principal); L98.492 Non-pressure chronic ulcer of skin of other sites with fat layer exposed; E11.622 Type 2 diabetes mellitus with other skin ulcer; K31.84 Gastroparesis; E66.01 Morbid (severe) obesity due to excess calories; B18.2 Chronic viral hepatitis C; T81.31XA Disruption of external operation (surgical) wound, not elsewhere classified, initial encounter; Z68.35 Body mass index [BMI] 35.0-35.9, adult | CPT/HCPCS: 11042 ==

== ENCOUNTER → 2021-02-16 | Outpatient (CLI) | payer MEDICAID ==
--- NOTE | 2021-02-16 16:21 | Diagnostic Imaging Report ---
PROCEDURE: CT abdomen and pelvis without contrast. TECHNIQUE: Multiple contiguous axial images were obtained through the abdomen and pelvis without the use of intravenous contrast. Auto Exposure Controls were utilized during the CT exam to meet ALARA standards for radiation dose reduction. DATE: February 16, 2021. COMPARISON: CT abdomen and pelvis July 10, 2020. The abdomen dated February 11, 2021. INDICATION: 45-year-old female, abdominal pain. Evaluation for foreign body. FINDINGS: There are limitations for evaluation of the abdominal organs, neoplastic processes, abscess, and limited evaluation of the vasculature relating to the lack of intravenous contrast. The visualized portions of the lung bases are clear. The heart is not enlarged. There is no pericardial effusion. The liver is unremarkable in size and contour. The gallbladder is surgically absent. There is no biliary ductal dilation. The main pancreatic duct is not grossly dilated. Unremarkable limited assessment of the pancreatic parenchyma on noncontrast exam. The spleen is normal in size. The adrenal glands are unremarkable. The urinary collecting systems are not distended. There are punctate nonobstructing right renal stones. There is no identified ureteral stone or hydronephrosis. The urinary collecting systems are not distended. The urinary bladder is unremarkable in appearance. The uterus is not seen and may be surgically absent. The intestinal tract is not distended. The appendix is unremarkable. There are surgical clips along the greater curvature of the stomach at its distal aspect and these are present and unchanged since at least July 10, 2020. Recommend correlation with surgical history and operative note to assess whether or not these foreign bodies are expected. There is a gas containing fluid collection along the right anterior abdominal wall on axial image 37 measuring 4.5 x 1.0 cm in size. There is a midline anterior abdominal wall skin defect with adjacent increased attenuation. The gas containing fluid collection is near site of previously noted skin defect. The midline anterior abdominal wall skin defect is also present on the prior study on September 29, 2020. There is no free intraperitoneal air. There is no drainable fluid collection specifically within the abdominal and pelvic cavities. There are atherosclerotic calcifications. There is no identified abnormally enlarged lymph node in the abdomen or pelvis meeting CT size criteria for adenopathy. There is no acute bony abnormality. IMPRESSION: CT ABDOMEN AND PELVIS. 1. Gas containing fluid collection in the right upper abdominal subcutaneous tissues superficial to the abdominal wall musculature most likely reflecting abscess measuring 4.5 x 1.0 cm in size 2. Sutures along the greater curvature of the stomach at the level of the distal stomach. Recommend correlation with operative note and past surgical history to assess whether or not these foreign bodies are expected. Punctate nonobstructing right renal stones. Dictated by: Dictated on workstation # [id number]
== END ==
LOC: RAD 15:45
PROVIDERS: ATTEND Surgery
DX: K31.84 Gastroparesis (principal); N20.0 Calculus of kidney
CPT/HCPCS: 74176

== ENCOUNTER → 2021-02-23 | Outpatient (CLI) | payer MEDICAID | LOC: WOUNDCARE 12:34 | PROVIDERS: ATTEND Family Medicine | DX: S31.102A Unspecified open wound of abdominal wall, epigastric region without penetration into peritoneal cavity, initial encounter (principal); T81.31XA Disruption of external operation (surgical) wound, not elsewhere classified, initial encounter; L98.492 Non-pressure chronic ulcer of skin of other sites with fat layer exposed; E11.622 Type 2 diabetes mellitus with other skin ulcer; E66.01 Morbid (severe) obesity due to excess calories; K31.84 Gastroparesis; B18.2 Chronic viral hepatitis C; L02.211 Cutaneous abscess of abdominal wall; X58.XXXA Exposure to other specified factors, initial encounter | CPT/HCPCS: 99212 ==

== ENCOUNTER → 2021-03-02 | Outpatient (CLI) | payer MEDICAID | LOC: WOUNDCARE 13:37 | PROVIDERS: ATTEND Family Medicine | DX: S31.102A Unspecified open wound of abdominal wall, epigastric region without penetration into peritoneal cavity, initial encounter (principal); T81.31XA Disruption of external operation (surgical) wound, not elsewhere classified, initial encounter; L98.492 Non-pressure chronic ulcer of skin of other sites with fat layer exposed; E11.622 Type 2 diabetes mellitus with other skin ulcer; E66.01 Morbid (severe) obesity due to excess calories; E11.43 Type 2 diabetes mellitus with diabetic autonomic (poly)neuropathy; K31.84 Gastroparesis; B18.2 Chronic viral hepatitis C; L02.211 Cutaneous abscess of abdominal wall | CPT/HCPCS: 99212 ==

== ENCOUNTER → 2021-03-23 | Outpatient (CLI) | payer MEDICAID ==
[~2021-03-23] MED LIST changes: +DICY20TA PO; -DICY20TA10 PO; -LEVO500T80 PO; +LEVO500T81 PO
== END ==
LOC: WOUNDCARE 13:49
PROVIDERS: ATTEND Family Medicine
DX: S31.102A Unspecified open wound of abdominal wall, epigastric region without penetration into peritoneal cavity, initial encounter (principal); T81.31XA Disruption of external operation (surgical) wound, not elsewhere classified, initial encounter; E11.52 Type 2 diabetes mellitus with diabetic peripheral angiopathy with gangrene; E11.622 Type 2 diabetes mellitus with other skin ulcer; E66.01 Morbid (severe) obesity due to excess calories; E11.43 Type 2 diabetes mellitus with diabetic autonomic (poly)neuropathy; L02.211 Cutaneous abscess of abdominal wall; K31.84 Gastroparesis; B18.2 Chronic viral hepatitis C; Z68.35 Body mass index [BMI] 35.0-35.9, adult
CPT/HCPCS: 11042; 11045; 97605

== ENCOUNTER → 2021-03-30 | Outpatient (CLI) | payer MEDICAID | LOC: WOUNDCARE 13:25 | PROVIDERS: ATTEND Family Medicine | DX: S31.102A Unspecified open wound of abdominal wall, epigastric region without penetration into peritoneal cavity, initial encounter (principal); T81.31XA Disruption of external operation (surgical) wound, not elsewhere classified, initial encounter; L98.492 Non-pressure chronic ulcer of skin of other sites with fat layer exposed; E11.622 Type 2 diabetes mellitus with other skin ulcer; E66.01 Morbid (severe) obesity due to excess calories; K31.84 Gastroparesis; B18.2 Chronic viral hepatitis C; L02.211 Cutaneous abscess of abdominal wall; E11.52 Type 2 diabetes mellitus with diabetic peripheral angiopathy with gangrene | CPT/HCPCS: 11042; 11045 ==

== ENCOUNTER → 2021-04-06 | Outpatient (CLI) | payer MEDICAID | LOC: WOUNDCARE 13:56 | PROVIDERS: ATTEND Family Medicine | DX: S31.102A Unspecified open wound of abdominal wall, epigastric region without penetration into peritoneal cavity, initial encounter (principal); T81.31XA Disruption of external operation (surgical) wound, not elsewhere classified, initial encounter; L98.492 Non-pressure chronic ulcer of skin of other sites with fat layer exposed; E11.622 Type 2 diabetes mellitus with other skin ulcer; E11.52 Type 2 diabetes mellitus with diabetic peripheral angiopathy with gangrene; E66.01 Morbid (severe) obesity due to excess calories; E11.43 Type 2 diabetes mellitus with diabetic autonomic (poly)neuropathy; K31.84 Gastroparesis; B18.2 Chronic viral hepatitis C; L02.211 Cutaneous abscess of abdominal wall; Z68.35 Body mass index [BMI] 35.0-35.9, adult | CPT/HCPCS: 11042; 97605 ==

== ENCOUNTER → 2021-04-13 | Outpatient (CLI) | payer MEDICAID | LOC: WOUNDCARE 14:15 | PROVIDERS: ATTEND Family Medicine | DX: S31.102A Unspecified open wound of abdominal wall, epigastric region without penetration into peritoneal cavity, initial encounter (principal); T81.31XA Disruption of external operation (surgical) wound, not elsewhere classified, initial encounter; L98.492 Non-pressure chronic ulcer of skin of other sites with fat layer exposed; E11.622 Type 2 diabetes mellitus with other skin ulcer; E11.52 Type 2 diabetes mellitus with diabetic peripheral angiopathy with gangrene; E66.01 Morbid (severe) obesity due to excess calories; E11.43 Type 2 diabetes mellitus with diabetic autonomic (poly)neuropathy; K31.84 Gastroparesis; B18.2 Chronic viral hepatitis C; L02.211 Cutaneous abscess of abdominal wall; Z68.35 Body mass index [BMI] 35.0-35.9, adult | CPT/HCPCS: 11043; 97605 ==

== ENCOUNTER → 2021-04-20 | Outpatient (CLI) | payer MEDICAID | LOC: WOUNDCARE 14:01 | PROVIDERS: ATTEND Family Medicine | DX: S31.102A Unspecified open wound of abdominal wall, epigastric region without penetration into peritoneal cavity, initial encounter (principal); T81.31XA Disruption of external operation (surgical) wound, not elsewhere classified, initial encounter; L98.492 Non-pressure chronic ulcer of skin of other sites with fat layer exposed; E11.622 Type 2 diabetes mellitus with other skin ulcer; E11.52 Type 2 diabetes mellitus with diabetic peripheral angiopathy with gangrene; E66.01 Morbid (severe) obesity due to excess calories; E11.43 Type 2 diabetes mellitus with diabetic autonomic (poly)neuropathy; K31.84 Gastroparesis; B18.2 Chronic viral hepatitis C; L02.211 Cutaneous abscess of abdominal wall; Z68.35 Body mass index [BMI] 35.0-35.9, adult | CPT/HCPCS: 11042; 87070; 87077; 87205; 97605 ==

== ENCOUNTER → 2021-04-27 | Outpatient (CLI) | payer MEDICAID | LOC: WOUNDCARE 13:37 | PROVIDERS: ATTEND Family Medicine | DX: S31.102A Unspecified open wound of abdominal wall, epigastric region without penetration into peritoneal cavity, initial encounter (principal); T81.31XA Disruption of external operation (surgical) wound, not elsewhere classified, initial encounter; L98.492 Non-pressure chronic ulcer of skin of other sites with fat layer exposed; E11.622 Type 2 diabetes mellitus with other skin ulcer; E66.01 Morbid (severe) obesity due to excess calories; E11.43 Type 2 diabetes mellitus with diabetic autonomic (poly)neuropathy; K31.84 Gastroparesis; B18.2 Chronic viral hepatitis C; L02.211 Cutaneous abscess of abdominal wall; B95.62 Methicillin resistant Staphylococcus aureus infection as the cause of diseases classified elsewhere; E11.52 Type 2 diabetes mellitus with diabetic peripheral angiopathy with gangrene | CPT/HCPCS: 11042; 97597; 97605 ==

== ENCOUNTER 2021-05-01 12:46 | Emergency (ER) | payer MEDICAID ==
[~2021-05-01] VITALS: Ht 157.5 cm; Wt 88.0 kg
[2021-05-01 12:51] VITALS: BP 154/90
--- OUTSIDE RECORDS SUMMARY | 2021-05-01 12:53 | XMS REPORT | Encounter Summary ---
Author Author [facility] Organization [facility] Address Unknown Phone Unavailable Care Team Providers Care Greenhouse Or Nursery Transplanter Name Role Phone James Euceda MD PCP Reason for Visit * Auth/Cert (Routine) - New Request Diagnoses / Procedures Referred By Contact Referred To Conta ct Specialty Diagnoses abscess Procedures Case request operating room: DEBRIDEMENT, APPLICATION, WOUND VAC AL DEBRIDEMENT, SKIN, SUB-Q TISSUE,=<20 SQ CM AL NEGATIVE PRESSURE WOUND THERAPY DME </= 50 SQ CM IRRIGATION AND DEBRIDEMENT, ABDOMEN APPLICATION, WOUND VAC Lenin Vieira MD [address] [address] Referral ID Status Reason Start Date Expiration Visits Vi sits Date Requested Authorized [id number] New Request 02/24/2021 02/24/2022 1 1 Encounter Details Care Team Description Date Type Department Wes Durbin MD [address] [place], [place] [id number] Bob Sanders 03/09/2021 Anesthesia [facility] Event [address] [place], [place] [id number] Anesthesia Record Responsible Anesthesiologist Anesthesia Start Time Anesthesi a Stop Time Procedure Name Wes Durbin MD 03/09/21 1415 03/09/21 1603 IRRIGATION AND DEBRIDEMENT OF INFECTED WOUND TRACT (N/A Abdomen) Date Time Event Comment 1214 1357 AN Equip Check 1415 In room 1415 An Start 1415 An Start Data 1429 Pt eval immediately prior to anesthesia 1429 Preoxygenated Prior to Induction 1430 Anesthesia Verified correct pa tient, procedure, allergies and equipment checks. Other PreInduction patient/case specific issue s addressed as needed (IV access and airway Time Out considerations, additional procedures, anesthesia options, cardiac devices, Complete positioning, transfusions/E BL and post operative disposition) 1431 An Induction 1432 RSI/Cricoid 1432 An Intubation 1433 Anesthesia Ready 1436 TEMPER MILL OPERATOR/AA Jarad Montiel Intraprocedure Sign-Off 1446 Procedure start 1545 Spontaneous respirations 1546 Procedure stop 1548 Adequate Tidal Volume 1548 FiO2 to 100% Prior to Suctioning 1548 Suction 1548 An Extubation 1549 Oxygen per face mask 1553 Pt Ready to Leave OR 1554 an stop data 1554 Transported with O2 1554 Out of Room 1603 Handoff I completed my SBAR handoff to the receiving nurse in the PACU/ICU/OB Patient and PACU/ICU/OB nurse identifie d Discussed patient medical history Discussed procedure Reviewed intraopera tive anesthetic management and issues/concerns Discussed expectation f or early post-procedure period Questions from PACU/ICU/OB team address ed 1603 An Stop Meds Name Total midazolam (VERSED) injection 1 mg/mL 2 mg lidocaine 1% (PF) 20 mg propofol 10mg/mL 160 mg succinylcholine (ANECTINE) 20 mg/mL 120 mg injection rocuronium 10mg/mL 50 mg fentaNYL (SUBLIMAZE) injection 50 mcg/mL 250 mcg ondansetron 2mg/mL 4 mg ceFAZolin (ANCEF) injection 2 g 2 g albuterol inhaler 90mcg/actuation 5 puff propofol (DIPRIVAN) infusion 10 mg/mL 179.43 mg ketamine 10 mg/mL 50 mg dexmedeTOMIDINE (PRECEDEX) injection 100 40 mcg mcg/mL sugammadex (BRIDION) injection 100 mg/mL 200 mg lactated ringers infusion 900 mL * Name Cell Saver Blood Intake O2 N2O Air EtSEVO EtISO EtDES EtN2O * No blood administrations on file. Removal Type Details Placement Wound 05/30/20; 1020; Incision; Abdomen; 09/12 1020 by Jose Gamino RN Negative 03/09/21; 1545; DR VIEIRA; Surgical; 03/09/21 1545 by Wes Collazo RN Wound Therapy Wound 03/09/21; 1613; Incision; Abdomen; 1613 by Wes Collazo RN 03/09/21 1633 by Paty Hart RN Wound 02/08/20; 1436; Y; Incision; Abdomen; 02/08/20 1436 by Theresa Miller; Surgical; 03/09/21; 1633 SHASTA Villar 03/09/21 1705 by Paty Hart RN Negative 05/30/20; 1023; MAE VEGA; Surgical; 05/30/20 1023 by Yin Sanchez Abdomen; Mid-line, Right (2 sites Mill er, project financial analyst (midline and R side), [address] vac); Therapy 03/09/21; 170 (Surgery - w ound vac placed 03/09/21); Other (Comment) 03/09/21 163 by Paty Hart RN Peripheral Date: 03/09/21; Time: 1424; Size 03/09 1424 by Rosalia Abraham IV (gauge): 20 G; Orientation: Right; Charity sarah RN Location: Arm; Removal Date: 03/09/21; Removal Time: 16303/09/21 1548 by FABIOLA Montiel Non-Surgic Date: 03/09/21; Time: 143; Able to mas k 03/09/21 143 by al Airway ventilate prior to placement: N/A; FABIOLA Galdamez Placed By: (medical student); Site: Oral; Device: ETT - Cuffed; Size: 7; Units: Millimeters; Method: Laryngoscope, Standard Stylet; Blade Type: MAC; Blade Size: 3; Attempts: 1; Grade View: I; Misc: Cricoid Pressure (RSI); Airway Observations: cords visualized, oropharynx clear; Placement Verified By: Capnometry, Auscultation; Measured From: Lips; Removal Date: 03/09/21; Removal Time: 1548 03/10/21 0653 by Cory Johansen Peripheral Date: 03/09/21; Time: 1446 (created via 03/09/21 1446 by IV procedure documentation); Size (gauge): FABIOLA Montiel 22 G; Orientation: Left; Location: Foot ; Site Prep: Other (Comment), Alcohol swab; Local Anesthetic: None; Removal Date: 03/10/21; Removal Time: 0653 documented in this encounter Social History Date Tobacco Use Types Packs/Day Years Used 1987 - 12/29/2020 Former Smoker Cigarettes 0.5 Smokeless Tobacco: Never Used Comments: 2.5 ppd until 2019; reports 5 cig /day 05/27/20. Comments Alcohol Use Standard Drinks/Week Not Currently 0 (1 standard drink = 0.6 o z pure alcohol) Sex Assigned at Date Recorded Not on file documented as of this encounter OR Notes * Anesthesia Postprocedure Evaluation - Brandon Sparks MD - 03/09/2021 4:43 PM SEALER OPERATOR Images from the original note were not included. Anesthesia Post Evaluation Procedure Summary Date: 03/09/21 Room / Location: [facility] MAIN OR / [facility] Main OR Anesthesia Start: 1414 Anesthesia Stop: 160 Procedures: IRRIGATION AND DEBRIDEMENT OF INFECTED WOUND TRACT (N/A Abdomen) APPLICATION, WOUND VAC (N/A ) REPAIR, HERNIA, INCISIONAL (N/A Abdomen) Diagnosis: Wound infection after surgery Abscess of liver (abscess) Surgeons: Lenin Vieira MD Responsible Provider: Wes Durbin MD Anesthesia Type: general ASA Status: 3 Patient Evaluated in: PACU Patient Participation: complete - patient participated Level of Consciousness: awake and alert , with adequate pain management. Airway Patency: patent Respiratory Status: spontaneous ventilation and room air Cardiovascular Status: hemodynamically stable Postoperative Hydration: euvolemic Postop Nausea/Vomiting: PONV present, improved with medication, prochlorperazine and diphenhydramine administered in PACU Multimodal analgesia used for 6 hours prior to anesthesia start time through PAC U discharge. Anesthetic Complications: No Appropriate for discharge from anesthesia care, no apparent anesthesia related c omplication ANE Post Eval Vitals Most Recent Value BP 147/87 filed at 03/09/2021 1601 Pulse 72 filed at 03/09/2021 1601 Temp 36.3 C (97.4 F) filed at 03/09/2021 1601 Resp 14 filed at 03/09/2021 1601 SpO2 98 % filed at 03/09/2021 1601 ER OPERATOR * Anesthesia Procedure Notes - FABIOLA Montiel - 03/09/2021 2:45 PM SEALER OPERATOR Associated Order(s): Peripheral IV Peripheral IV End time: 03/09/2021 2:29 PM Performed by: resident Staffing Edy Galarza DO IV Placement IV placed Left Foot. Site was prepped with alcohol swabs and no local anestheti c was used. A 22 gauge needle was used with anatomical landmarks technique. ER OPERATOR * Anesthesia Preprocedure Evaluation - Edy Galarza DO - 03/09/2021 12:14 PM SEALER OPERATOR Anesthesia Evaluation Patient summary, Nursing notes, ECG and Labs reviewed History of anesthetic complications: PONV and delayed emergence History of smoking and substance abuse (marijuana). No history of alcohol use. Quit. Airway Mallampati: I TM distance: >3 FB Neck ROM: full Adequate mouth opening Dental Dental Status: lower dentures and upper dentures C = Chipped M = Missing L = Loose V = Veneer Image = [facility] - normal exam (+) Well Controlled asthma, COPD, sleep apnea noncompliant, Cardiovascular - normal exam Exercise tolerance: > or = 4 METS (+) hypertension, , currently taking beta roney and will be maintained matt operatively Neuro/Psych (+) seizures (none in last two years), peripheral neuropathy (sciatica), GI/Hepatic/Renal (+) liver disease (treated for hep C) Hepatitis C, PUD, Endo/Other (+) type 2 diabetes mellitus using insulin Comorbidities: gastroparesis Abdominal Body mass index is 33.3 kg/m. (+) BMI > 30 Obstetrics HEENT (+) glaucoma Musculoskeletal (+) chronic pain, Using Opioids. Hematology/Oncology (+) anemia, Anesthesia Plan ASA 3 Type: general () Plan to include: IV induction and oral ETT Plan discussed with director of technology and attending. Anesthetic plan including risks, benefits and alternatives was discussed with an d agreed to by the patient. Informed consent was obtained to proceed. Recovery plan: PACU Risk factors for PONV: female, Hx PONV and non smoker PONV Risk: high Plan for PONV Prophylaxis to include: dexamethasone, ondansetron, propofol infus ion and scopalamine patch COVID-19 Lab Results past 6 months 03/06/21 0951 SARS-COV-2, [place] Negative ER OPERATOR documented in this encounter Plan of Treatment Not on filedocumented as of this encounter Procedures Comments Procedure Name Priority Date/Time Associated Diag nosis ANESTHESIA PERIPHERAL IV Routine 03/09/2021 2:45 PM SEALER OPERATOR documented in this encounter Results * ANESTHESIA PERIPHERAL IV (03/09/2021 2:45 PM SEALER OPERATOR) Modality Anatomical Region Laterality Other Narrative Amaya Arnett AA - 03/09/2021 2:45 PM SEALER OPERATOR FABIOLA Montiel 03/09/2021 2:46 PM Peripheral IV End time: 03/09/2021 2:29 PM Performed by: resident Staffing Edy Galarza DO IV Placement IV placed Left Foot. Site was prepped with alcohol swabs and no local anesthetic was used. A 22 gauge needle was used with anatomical landmarks technique. documented in this encounter Visit Diagnoses Not on filedocumented in this encounter Administered Medications Action Date Dose Rate Site Medication Order MAR Action 03/09/2021 2:34 PM SEALER OPERATOR 5 puffs albuterol (PROAIR/PROVENTIL/VENTOLIN) Given HFA inhaler Inhalation, As needed, Starting on Tue03/09/21 at 1434, Anesthesia Intra-op 03/09/2021 2:40 PM SEALER OPERATOR 2 g ceFAZolin (ANCEF) injection 2 g Given 2 g, Intravenous, 60 min pre-op, Indications: PERIOPERATIVE, Starting on Tue03/09/21 at 1152, For 1 dose, Pre-op, If giving IV push, reconstitut e each vial with 10 ml sterile water and give over 3-5 minutes. If sterile wate r is unavailable, may use Bacteriostatic Water or Normal Saline for reconstitution 03/09/2021 3:59 PM SEALER OPERATOR 10 mcg dexmedeTOMIDINE (PRECEDEX) injection Given Intravenous, As needed, Starting on Tue03/09/21 at 1540, Anesthesia Intra-op 10 mcg Given 03/09/2021 3:51 PM SEALER OPERATOR 10 mcg Given 03/09/2021 3:43 PM SEALER OPERATOR 03/09/2021 3:51 PM SEALER OPERATOR 50 mcg fentaNYL (SUBLIMAZE) injection Given Intravenous, As needed, Starting on Tue03/09/21 at 1456, Anesthesia Intra-op 50 mcg Given 03/09/2021 3:20 PM SEALER OPERATOR 50 mcg Given 03/09/2021 2:56 PM SEALER OPERATOR 03/09/2021 3:25 PM SEALER OPERATOR 20 mg ketamine (KETALAR) 10 mg/mL injection Given Intravenous, As needed, Starting on Tue03/09/21 at 1438, Anesthesia Intra-op 10 mg Given 03/09/2021 2:52 PM SEALER OPERATOR 20 mg Given 03/09/2021 2:38 PM SEALER OPERATOR 03/09/2021 5:45 PM SEALER OPERATOR 50 mL/hr 50 mL/hr lactated ringers infusion New Bag 50 mL/hr, Intravenous, Continuous, Starting on Tue03/09/21 at 1215, For 4 8 hours New Bag 03/09/2021 2:28 PM SEALER OPERATOR 03/09/2021 2:31 PM SEALER OPERATOR 20 mg lidocaine (pf) (XYLOCAINE-MPF) 10 mg/mL Given (1 %) injection Intravenous, As needed, Starting on Tue03/09/21 at 1431, Anesthesia Intra-op 03/09/2021 2:15 PM SEALER OPERATOR 2 mg midazolam (PF) (VERSED) injection Given Intravenous, As needed, Starting on Tue03/09/21 at 1415, Anesthesia Intra-op 03/09/2021 3:38 PM SEALER OPERATOR 4 mg ondansetron (ZOFRAN) injection Given Intravenous, As needed, Starting on Tue03/09/21 at 1538, Anesthesia Intra-op 03/09/2021 2:47 PM SEALER OPERATOR 35 mcg/kg/min 18.291 mL/hr propofol (DIPRIVAN) infusion 10 mg/mL Rate/Dose Intravenous, Continuous PRN, Starting on Change Tue03/09/21 at 1436, Anesthesia Intra-op 25 mcg/kg/min 13.065 mL/hr New Bag 03/09/2021 2:36 PM SEALER OPERATOR 03/09/2021 2:31 PM SEALER OPERATOR 160 mg propofoL (DIPRIVAN) injection Given Intravenous, As needed, Starting on Tue03/09/21 at 1431, Anesthesia Intra-op 03/09/2021 2:35 PM SEALER OPERATOR 50 mg rocuronium (ZEMURON) injection Given Intravenous, As needed, Starting on Tue03/09/21 at 1435, Anesthesia Intra-op 03/09/2021 2:31 PM SEALER OPERATOR 120 mg succinylcholine (ANECTINE) injection Given Intravenous, As needed, Starting on Tue03/09/21 at 1431, Anesthesia Intra-op 03/09/2021 3:43 PM SEALER OPERATOR 200 mg sugammadex injection Given Intravenous, As needed, Starting on Tue03/09/21 at 1543, Anesthesia Intra-op documented in this encounter Care Teams Start Date End Date Greenhouse Or Nursery Transplanter Relationship Specialty 10/24/19 James Euceda MD PCP - [address] [phone] documented as of this encounter
--- OUTSIDE RECORDS SUMMARY | 2021-05-01 12:53 | XMS REPORT | Encounter Summary ---
Author Author [facility] Organization [facility] Address Unknown Phone Unavailable Care Team Providers Care Bicycle Messenger Name Role Phone James Euceda MD PCP Encounter Details Care Team Description Date Type Department Yajaira Denton RN 03/24/2021 Telephone [facility] [address] [place] [address] Social History Date Tobacco Use Types Packs/Day Years Used 1987 - 12/29/2020 Former Smoker Cigarettes 0.5 Smokeless Tobacco: Never Used Comments: 2.5 ppd until 2019; reports 5 cig /day 05/27/20. Comments Alcohol Use Standard Drinks/Week Not Currently 0 (1 standard drink = 0.6 o z pure alcohol) Sex Assigned at Date Recorded Not on file documented as of this encounter Miscellaneous Notes * Telephone Encounter - Yajaira Denton RN - 03/24/2021 7:54 AM CASEY SAW OPERATOR Patient states that in between wound 1 and 2, there is a 2 inch in width tunnel that goes from midline wound to second wound. It goes all the way through. It runs at least 11 cm. Home health nurse was able to stick her finger in it. She thinks that Dr. Vieira needs to cut it and make it one incision so that it can heal. Y SAW OPERATOR documented in this encounter Plan of Treatment Not on filedocumented as of this encounter Visit Diagnoses Not on filedocumented in this encounter Care Teams Start Date End Date Bicycle Messenger Relationship Specialty 10/24/19 James Euceda MD PCP - General [address] [phone] documented as of this encounter
--- OUTSIDE RECORDS SUMMARY | 2021-05-01 12:53 | XMS REPORT | Encounter Summary ---
Author Author [facility] Organization [facility] Address Unknown Phone Unavailable Care Team Providers Care Director Of Land Name Role Phone Self, James VEGA PCP Encounter Details Care Team Description Date Type Department Lavonne Dai LPN 03/18/2021 Telephone [facility] [address] [place] [address] Social History Date Tobacco Use Types Packs/Day [...] encounter Miscellaneous Notes * Telephone Encounter - Lavonne Dai LPN - 03/18/2021 8:51 AM WELT WHEELER Patient called this AM. She states her wound vac has yellowish drainage in it. When discharged from the hospital it was more clear. She is concerned it may be infected. She has no fever, no chills, and notes a mild increase in pain at the wound vac site. Her home Health Nurse will be at her home this morning to change the wound vac. I asked patient to notify Home Health Nurse to call us back with descriptions of wound bed. And patient stated she will also take picture of the wound bed today and send this to us. WHEELER documented in this encounter Plan of Treatment Not on filedocumented as of this encounter Visit Diagnoses Not on filedocumented in this encounter Care Teams Start Date End Date Director Of Land Relationship Specialty 10/24/19 James Euceda MD PCP - General [address] [phone] documented as of this encounter
--- OUTSIDE RECORDS SUMMARY | 2021-05-01 12:53 | XMS REPORT | Encounter Summary ---
Author Author [facility] Organization [facility] Address Unknown Phone Unavailable Care Team Providers Care Herpetologist Name Role Phone Ok, James VEGA PCP Reason for Visit * Reason Comments Postop Check Encounter Details Care Team Description Date Type Department Lenin Vieira MD [address] [place] [address] Gastroparesis (Primary Dx); Type 2 diabetes mellitus with other specified complication, with long-term current use of insulin (HCC); Wound infection after surgery; Incisional hernia, without obstruction or gangrene; Class 1 obesity due to excess calories with body mass index (BMI) of 32.0 to 32.9 in adult, unspecified whether serious comorbidity present 03/25/2021 Video Visit [facility] [address] [place] [address] Social History Date Tobacco Use Types Packs/Day Years Used 1987 - 12/29/2020 Former Smoker Cigarettes 0.5 Smokeless Tobacco: Never Used Comments: 2.5 ppd until 2019 (52.5 pys); reports 5 cig /day 05/27/20. Comments Alcohol Use Standard Drinks/Week Not Currently 0 (1 standard drink = 0.6 o z pure alcohol) Sex Assigned at Date Recorded Not on file documented as of this encounter Progress Notes * Lenin Vieira MD - 03/25/2021 9:00 AM PATIENT CASE COORDINATOR Was patient consent obtained for video visit/telemedicine platform? Yes For date of service 03/25/2021, the patient was located at her home and I am see ing the patient via epic video visit. from the below location: [facility] [address] [facility] [address] Bobbi Browne is a 45 y.o. wound who is following with me for treatme nt of Problem List Items Addressed This Visit Gastroparesis - Primary Type II diabetes mellitus (HCC) Incisional hernia Wound infection after surgery Class 1 obesity in adult Chief Complaint: Follow-up on wound issues. She was seen by means of a video vis it because she was exposed to someone who tested positive for COVID. She told me that she was able to eat smoked turkey, mashed potatoes, and stuffing on Thanks giving. History of Present Illness: Ms. Page is a 45year old woman withpresumeddiabetic gastroparesis who was referred for consideration ofgettinga gastric electrical stimulator. Fro Jacqui Everywhere, I learned that in the spring, she had numerous visit s to the ER and her PCP for injuries from falling down her stairs, from lifting a heavy object, and from falling in the mud.She wasalsolosing weight, weig westley 240 lbs on 07/30/2017 and 214 lbs on 09/22/2017. She presented for the first t brody with nausea and vomiting on the September,tothe ER, which she sa id had started about3 weeks before. During that visit, there was concern that her nausea and vomiting may represent the hyperemesis syndrome associated with m arijuana as she had been recently smoking that plant. Since that time, her sympt oms have progressed to the pointthat she is unable to take any food by mouth a nd she can not tolerate tube feedings by means of a GJ tube placed by [facility]. She is currently being fed by TPN, I assume at night. She is fel t to have developed Diabetic Gastroparesis, even though she has only had Type II DM for 9 years, and a Gastric Emptying Test was normal done on 12/09/2017 in [facility], showing8% of a standard meal being present in her stomach at 4 hrs. A Gas tric Emptying Test was attempted at [facility] on 10/23/2018 but she vomited up the frank dard meal after an hour and so the test was not completed.She has failed Sherin n, Domperidone, Erythromycin, and Botox injections. Video Visit (10/24/2019):She does not have the Median Arcuate Ligament Syndrome, based on reviewing a CT scan done 09/10/2019.She continues to smoke cigarette s, which I would like her to stop, as it does interfere with her interest in eat ing. I would also like her to complete a GET and demonstrate that she has gastro paresis. I am very interested in Dr. Morales's thoughts. Video Visit(01/16/2020):Since I last saw her by Video Visit, she had a GETo n 12/07/2019that showed >27% of a standard meal left in her stomach at 4 hrs, proving that she has gastroparesis. She also visited with Dr. Morales on the o felt that if her GET was abnormal that she qualifies for placement of aGES. Thus, I discussed with her how the surgery for placement of the gastric electrical stimulator would go. I showed her amodel of agastric electrical stimulator, so that she knew the size and shape of the device. I mentioned doing the surgery through an upper midlineincision. I explained that I would take two gastric wall biopsiesto check for cells of Cajal. I also told them that I would do apyloroplastyto aid in gastric emptying. Finally, we wouldplace twopermanentgastric electrodes, do an EGD to confirm that theelectrodeswere in the stomach wall and not through the wall, and put the gastric electrical stimulator in a pocket on top of her abdominal wall fascia. Once in place, we would check the load impedance of the circuit and, at the end of the case, we would turn on the device. She would stay in the hospital for 4-6 days. Hospital Stay (02/07-):[id number] wall biopsies(Normal numbers of cells of Cajal),a pyloroplasty,implantation of agastric electrical stimulator and 2 permanentgastricelectrodes,repair o fanincisional hernia, andplacement of a feeding jejunostomy, as well as, a nEGD done by Dr. Isbell 02/08/2020.Sheexperienced nausea and vomitin g secondary to poor pain control after the procedure and the acute pain service assisted with getting her pain to a manageable level. She was placed on a ketami ne drip, which was discontinued 4 days later.She was transitioned to oral and IV pushes for pain control and to only oral medson the .Her post operati ve nausea and vomiting were alleviated once her pain was controlled. Shewast olerating a soft diet.The patient was tolerating adequate PO intake, urinating , and ambulating andwas discharged on 02/13/2020 on the 5th post-operative day . Clinic Visit (02/27/2020):She has been having urinary symptoms consistent with a UTI. She had a recent culture that showed multiple bacteria, so I stressed coretta ing certain she gets a clean catch.Unfortunately, she again had a culture show ing mixed renan.I increased the current used during each electrical pulse to i mprove her TSS. She wanted to take a Probiotic, which I felt was fine. She has H CV and needs treatment, so she will be seen in Hepatology clinic on 04/03/2020. Clinic Visit (03/04/2020):She came back to clinic due to wound issues. After h er clinic appointment last week, she developed suddenly a gush of fluid from her wound. Her neighbor, a home health nurse helped her and talked with me. Since ,her wound has been stable. It was being dressed superficially, not packed, and changed daily. She has not had fevers or chills.She will continue to darlin at her wound with help from her friend.In clinic, her wound lookedgood. Her urine culture from last week again showed mixed renan. Shewasstill having bu rning,urgency,and pain on urinating; she laterhad a straight cathdone at her PCP's officeand it was no growth.She told me that she is having frequen tlylow blood sugars. Her PCP is overseeing her Diabetic management.Her blood sugarsturned out to be in goodcontrol, having [id number]%.Although h er TSSwasnot greatly improved from last week, she is doing slightly better o verall. I will not readjust her GES now but will wait to see how she is doing in a month. Clinic Visit (04/03/2020):Her total symptom score is lower than it had been vaughn ggesting that she is getting benefit from the device. I left the settings the sa me. We discussedwhy she might have tenderness over her gastric electrical stim ulator. There is no fluid around it but it may be moving and that movement can l ed to tenderness. I would not make any changes now. I felt that she needed to ma ke certain that she has regular bowel movements since constipation worsens her s ymptoms. It seems as though she had good bowel movements while on a Probiotic he r friend, Nirali, had given her. Thus I feel she should continue to take those as n eeded. In the future, she should be following with Dr. Morales and not with me unless a surgical issue were to arise. Clinic Visit (04/23/2020):During her visit, I reviewed the CT scan she had don e which did not show disruption of the fascial closure, which I had feared, but did show air in the soft tissue, which I felt is consistent with a wound that is leaking serous fluid. The radiologist called me and pointed out there was an odd finding, which I reviewed. We later obtained a standard flat x-ray that suggests what wewere seeing isthecoilof the two gastricelectrodes, formed by the stimulator spinning, as it must be loose. Due to this finding and because the gastric electrodes appear to be stretched, I will return her to the OR next Tuesday, to replace the two gastric electrodes, do endoscopy, suture the stimulat or to her abdominal wall fascia more securely, and get a liver biopsy. I will pl an to close her fascia but I will place a woundVAC, to get her wound to heal. I called her and let her know our plans. Hospital Stay (05/02-):On the 02 of May, I took her to the OR, found the load impedance was the same, explored the pocket, removed the gastric elect rical stimulator, uncoiled the electrodes, excised the capsule, replaced the GES , and closed with a WoundVAC. We found that there was a lot of thick fluid in he r wound. She had a rough day or two and was discharged after 6 days; most of her stay was awaiting approval of the woundVAC. After 10 days, Leslie Glabrata gre w. I had felt she should be started on Fluconazole. She saw an ID doctor at [facility] who felttreatment of that culturewas unnecessary due to the time since the culture and the finding of noinfection. Clinic Visit (05/21/2020):Taniaoverjoyed that she wasdoing so well and had so little symptoms. She told me that she has been gaining weight and that her glucoses are not being well controlled, which she needs to do better. She is ha y interested in exercising and can not wait until the weather allows for outside activities. Since her visit, she sent me an image of her wound during today's d ressing change and it is looking well. I expect that in another week or two she will not need the WoundVAC. Her oxycodone use is minimal but she is on a Fentanyl patch. I hope that now she would be able to wean off the Fentanyl patch, which her PCP will oversee. I want her to start following now with Dr. Morales. I will see her back in 4 weeks. If the wound is healed, I will have her start on HCV therapy. Hospital Stay (05/30-12/2020): On the first may, shepresented to the ER abhay lew with pain. She eventually had scans that showed the stimulator was loose a gain and the electrodes were coiled. She was discharged from the ER prior to my review of her scans and so we readmitted [id number] of Mayand removed her gastric electrical stimulator and the electrodes and placed a woundVAC in trupit th her midline incision and the incision over the GES. Unexpectedly, only Coryne bacterium grew but not Leslie.She waseventually discharged on the onR ocephin, Flagyl, and micafungin. Clinic Visit (06/25/2020):She is looking well. She is dealing with her gastropar esis which is causing her more symptoms than she had had with the GES in place, 07/27 vs , but her TSS is not now as bad as it had been prior to placement of the GES, , which I ascribe to having had a pyloroplasty. After talking with ID, I do not feel we should replace the device until 6 months have passed. I w ould like her now to be followed as an outpatient by Dr. Morales until the yojana e comes to try to place a GES again. I gave her a script for twenty 5 mg Oxycodo ne tablets to help for the pain associated with the WoundVAC sponge changes.Th e PICC line was removed after her clinic appointment with me. Video Visit (07/30/2020): She felt the stimulator was helping her in that she was not having problems with vomiting and so wants it replaced. I advised her to seek out Dr. Morales for his thoughts on helping her symptoma tically until we can replace the GES. I also told her that I need to talk with Adamaris Rowan about when he feels it is reasonable to place a new GES and what surgica l techniques I should use to lessen the risks for infection. Additionally, I angy l ask Dr. Lee about when her HCV treatment could be started. Clinic Visit (02/11/2021): She is looking well. She is cured of HCV. She takes L evemir 15 units daily now. She could be a candidate for another GES, as long as she has had no infections for several months. To get there, she needs to have he r current wounds healed. As she still has times when material drains from her ol d incisions, we should get a CT scan to make certain there is not deep wound dominique t needs debridement. She had a CT done on 02/16/2021, that I have now reviewed a nd shows a deep abscess on top of her fascia. We will plan to take her to the OR as soon as can be done to I&D her wound. Once healed, then we may need to wait six months until placing a new GES. Hospital Stay (03/09-): [facility] and debrid ement and placement of a wound vac on 03/09/2021 to clean up the area to allow f or eventual replacement of gastric pacemaker. At first, she needed more time wor nicole with PT to become independent to discharge home with home health. Infectiou s disease was consulted during her hospitalization d/t wound infection at the GE S site. Originally, they held off on giving her antibiotics because cultures wer e negative but ultimately recommended doxycycline, which was the same agent she was taking before surgery. Her diabetes was treated appropriately while she was inpatient. Ultimately, she was tolerating a regular diet, sating well on room ai r, having controlled pain on po medications, had a plan for po antibiotics, was set up with outpatient wound care, and a clinic appointment in two weeks. Review of Systems: Review of Systems Constitutional: Negative for malaise/fatigue. Negative for chills and fever. HENT: Negative for nasal congestion, nosebleeds and sinus pain. Eyes: Negative for blurred vision and double vision. Respiratory: Negative for shortness of breath. Negative for cough. Cardiovascular: Negative for leg swelling. Negative for chest pain. Gastrointestinal: She had abdominal pain, constipation, and nausea (1-2 times/da y for which she takes Zofran). Negative for diarrhea and no vomiting. Genitourinary: Negative for urinary frequency and urgency. Musculoskeletal: Negative for back pain. Negative for joint pain and neck pain. Skin: She has itching from the plastic woundVAC dressing. Negative for rash. Neurological: Negative for tremors. Negative for dizziness, tingling and headach es. Endo/Heme/Allergies: She has allergies. Negative for easy bruising/bleeding. Psychiatric/Behavioral: She has depression and is nervous/anxious. The patient d oes not have insomnia. Medications: Medication Sig fentaNYL (DURAGESIC) 25 mcg/hr patch Place 25 patches on the skin every 3 (t hree) days. acetaminophen (TYLENOL) 500 MG tablet Take 2 tablets (1,000 mg total) by boo th every 8 (eight) hours. albuterol (PROVENTIL HFA) 90 mcg/actuation HFA inhaler Inhale 2 puffs every 6 (six) hours as needed for wheezing. atorvastatin (LIPITOR) 10 MG tablet Take 10 mg by mouth daily. BREO ELLIPTA 100-25 mcg/dose INHALER Inhale 1 puff daily. doxycycline hyclate (VIBRA-TABS) 100 MG tablet Take 1 tablet (100 mg total) by mouth 2 (two) times a day with meals. EPINEPHrine (EPIPEN) 0.3 mg/0.3 mL AtIn GVOKE HYPOPEN 2-PACK 1 mg/0.2 mL AtIn USE DIRECTED SUBCUTANEOUSLY PRN FO R SEVERE HYPOGLYCEMIA insulin detemir U-100 (LEVEMIR) 100 unit/mL injection Inject 15 Units under the skin nightly. ipratropium-albuteroL (DUO-NEB) 0.5-3 mg/3 mL nebulizer Inhale 3 mL via nebu lizer as needed. LACTOBACILLUS RHAMNOSUS GG ORAL Take 1 capsule by mouth daily. lancets (LANCETS,ULTRA THIN) 26 gauge Misc USE THREE TIMES DAILY TO TEST BLO OD SUGAR lisinopriL (PRINIVIL,ZESTRIL) 10 MG tablet Take 5 mg by mouth nightly at bed time. metoprolol tartrate (LOPRESSOR) 25 MG tablet Take 25 mg by mouth nightly. mirtazapine (REMERON) 30 MG tablet Take 30 mg by mouth nightly. omeprazole (PRILOSEC) 20 MG capsule Take 40 mg by mouth 2 (two) times a day before breakfast and lunch. ondansetron (ZOFRAN-ODT) 8 MG disintegrating tablet Take 1 tablet (8 mg tota l) by mouth every 6 (six) hours. oxyCODONE (ROXICODONE) 5 MG immediate release tablet Take 1-2 tablets (5-10 mg total) by mouth every 4 (four) hours as needed. Max Daily Dose: 60 mg promethazine (PHENERGAN) 50 MG tablet TAKE 1/2 TO 1 TABLET BY MOUTH EVERY 8 HOURS FOR 7 DAYS NEEDED rosuvastatin (CRESTOR) 10 MG tablet Take 10 mg by mouth daily. scopolamine (TRANSDERM-SCOP) 1 mg over [address] 1 patch on the skin ever y 72 hours. sucralfate (CARAFATE) 1 gram tablet Take 1 tablet (1 g total) by mouth on an empty stomach 2 times daily before meals. Do not take within 30min of antacid or 2hrs of other meds. traZODone (DESYREL) 150 MG tablet Take 150 mg by mouth nightly. nightly at b edtime Vitals Available and Taken on Home Machine: Temp:: 36.6 C (97.8 F) Height: 1.6 m (5' 3") Weight:: 86.6 kg (191 lb) IBW(lbs.) (Calculated) : 115.52 Pulse:: 71 Pulse Ox:: 97 % BMI (Calculated): 33.8 Pain Score: Seven Pain Loc: ABDOMEN Fatigue Score: 7 Physical Exam Video visits do not have the supported technology for physician to document hear t and lungs exams, and may not have ability to fully document vital signs. She appears her normal self and was not in distress. Assessment: I spent 45 minutes in caring for Bobbi Browne, reviewing her course, her scans, and her blood work and discussing various therapeutic is sues with her alone. She was in good spirits and seemed to be doing fine. She was tolerating a diet. She continues to be very interested in having a GES placed again when we can. Plan: 1.) Discuss her wound with Dr. Clark (Which I did). 2.) Set up to see Dr. Rowan about when we can consider placing a new GES in early April (send consult). 3.) RTC in first week of April. 4.) Follow-up with Dr. Morales. Bobbi was seen today for postop check. Diagnoses and all orders for this visit: Gastroparesis Type 2 diabetes mellitus with other specified complication, with long-term curre nt use of insulin (HCC) Wound infection after surgery Incisional hernia, without obstruction or gangrene Class 1 obesity due to excess calories with body mass index (BMI) of 32.0 to 32. 9 in adult, unspecified whether serious comorbidity present Time spent (45 min) of counseling, coordination, and medical necessity of phone visit. ENT CASE COORDINATOR documented in this encounter Plan of Treatment Not on filedocumented as of this encounter Visit Diagnoses Diagnosis Gastroparesis - Primary Type 2 diabetes mellitus with other spe cified complication, with long-term current use of insulin (HCC) Wound infection after surgery Incisional hernia, without obstruction or gangrene Class 1 obesity due to excess calories with body mass index (BMI) of 32.0 to 32.9 in adult, unspecified whether serious comorbidity present documented in this encounter Care Teams Start Date End Date Herpetologist Relationship Specialty 10/24/19 James Euceda MD PCP - General [address] [id number] documented as of this encounter
--- OUTSIDE RECORDS SUMMARY | 2021-05-01 12:53 | XMS REPORT | Clinical Summary ---
Author [facility] Address Unknown Phone Unavailable Care Team Providers Care Construction Specialist Name Role Phone Self, James VEGA PCP Allergies Comments Active Allergy Reactions Severity Noted Date Severely allergic surgical dressings Adhesive Tape-Silicones Hives High 2014 Per patient not an allergy Chlorhexidine Gluconate Hives High 2007 Clindamycin Nausea And 10/16/2020 Vomiting Hives Meperidine Hives High 10/18/2019 Hives. Tolerated well during Jan 2020 admission. Hydromorphone (Bulk) 10/18/2019 Hives Hibiclens (Isopropyl Hives Low 0 Alcohol) Hives Latex, Natural Rubber Hives High 10/18/19 20 Hives Fluvoxamine Hives High 10/18/2019 Hives Morphine Anaphylaxis High 10/18/2019 Dystonia Promethazine Dystonia High 10/18/2019 Dystonia Metoclopramide Hcl Dystonia High 10/18/2019 "stops pancreas from working" Sulfamethoxazole-Trimetho Other (See High 01/25 prim Comments) Tramadol Hives Low 11/22/2007 Medications End Date Status Medication Sig Dispensed Refills Start Date Active albuterol (PROVENTIL HFA) Inhale 2 0 90 mcg/actuation HFA puffs every 6 inhaler (six) hours as needed for wheezing. Active ipratropium-albuteroL Inhale 3 mL 0 (DUO-NEB) 0.5-3 mg/3 mL via nebulizer nebulizer as needed. Active scopolamine Place 1 patch 0 (TRANSDERM-SCOP) 1 mg on the skin over 3 days every 72 hours. Active traZODone (DESYREL) 150 Take 150 mg 0 MG tablet by mouth nightly. nightly at bedtime Active EPINEPHrine (EPIPEN) 0.3 0 mg/0.3 mL AtIn 0 Active GVOKE HYPOPEN 2-PACK 1 USE 0 02 mg/0.2 mL AtIn DIRECTED 0 SUBCUTANEOUSL Y PRN FOR SEVERE HYPOGLYCEMIA Active metoprolol tartrate Take 25 mg by 0 (LOPRESSOR) 25 MG tablet mouth nightly. Active BREO ELLIPTA 100-25 Inhale 1 puff 0 mcg/dose INHALER daily. 0 Active lancets (LANCETS,ULTRA USE THREE 0 01 THIN) 26 gauge Misc TIMES DAILY 6 TO TEST BLOOD SUGAR Active lisinopriL Take 5 mg by 0 (PRINIVIL,ZESTRIL) 10 MG mouth nightly tablet at bedtime. Active omeprazole (PRILOSEC) 20 Take 40 mg by 0 MG capsule mouth 2 (two) times a day before breakfast and lunch. Active LACTOBACILLUS RHAMNOSUS Take 1 0 GG ORAL capsule by mouth daily. Active promethazine (PHENERGAN) TAKE 1/2 TO 1 0 08/05 50 MG tablet TABLET BY 1 MOUTH EVERY 8 HOURS FOR 7 DAYS NEEDED Active rosuvastatin (CRESTOR) 10 Take 10 mg by 0 05/0 /202 MG tablet mouth daily. 1 Active insulin detemir U-100 Inject 15 0 (LEVEMIR) 100 unit/mL Units under injection the skin nightly. Active atorvastatin (LIPITOR) 10 Take 10 mg by 0 MG tablet mouth daily. Active mirtazapine (REMERON) 30 Take 30 mg by 0 MG tabletIndications: mouth major depressive disorder nightly. Active oxyCODONE (ROXICODONE) 5 Take 1-2 20 tablet 0 1 MG immediate release tablets (5-10 1 tablet mg total) by mouth every 4 (four) hours as needed. Max Daily Dose: 60 mg Active acetaminophen (TYLENOL) Take 2 0 500 MG tablet tablets 1 (1,000 mg total) by mouth every 8 (eight) hours. Active sucralfate (CARAFATE) 1 Take 1 tablet 60 tablet 0 gram tablet (1 g total) 1 by mouth on an empty stomach 2 times daily before meals. Do not take within 30min of antacid or 2hrs of other meds. Active ondansetron (ZOFRAN-ODT) Take 1 tablet 120 tablet 0 8 MG disintegrating (8 mg total) 1 tablet by mouth every 6 (six) hours. Active fentaNYL (DURAGESIC) 25 Place 25 0 mcg/hr patch patches on 1 the skin every 3 (three) days. 04/10/2021 doxycycline hyclate Take 1 tablet 56 tablet 0 02/23 (VIBRA-TABS) 100 MG (100 mg 1 tabletIndications: SKIN total) by AND SOFT TISSUE INFECTION mouth 2 (two) times a day with meals. 03/16/2021 Discontinued (Other) lidocaine (GLYDO) 2 % Apply 1 50 mL 0 02/23 jelly application 1 topically daily. Active Problems Problem Noted Date Class 1 obesity in adult 03/25/2021 Abscess of liver 02/24/2021 Overview: Formatting of this note might be differ ent from the original. [id number] Chronic abdominal wound infection 09/23/2020 Overview: Formatting of this note might be differ ent from the original. Being followed by Dr. Dutta, in [place], [place]. Wound infection after surgery 05/27/2020 Overview: Formatting of this note might be differ ent from the original. [id number] Intra-abdominal infection 05/27/2020 Overview: Formatting of this note might be differ ent from the original. [facility] [id number] Yeast infection 05/12/2020 Severe obesity (BMI >= 40) 05/03/2020 Complication of generator of implanted electronic maame rostimulator, initial 05/02/2020 encounter Disruption of external surgical wound 02/28/2020 Unable to eat 02/27/2020 Dysuria 02/27/2020 Overview: Formatting of this note might be differ ent from the original. Also frequency and odor. Chronic hepatitis C without hepatic coma 02/27/2020 Arm vein blood clot, right 02/08/2020 Incisional hernia 02/08/2020 Overview: Formatting of this note might be differ ent from the original. From prior GJ tube. 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 Been diabetic for 9 years. DG: started in 2018, out of the blue, s he started having N&V everyday. 235 lbs to 173 lb; continues to lose weight . Started TPN a week ago. Reglan, Domperidone, erthromycin; botox into py lorus, helped a little bit. But did not last. Gastroparesis 10/18/2019 Overview: Formatting of this note might be differ ent from the original. Non-intractable vomiting with nausea Type II diabetes mellitus 10/18/2019 Gastric ulcer 10/18/2019 Overview: Formatting of this note might be differ ent from the original. Developed this due to the GJ tube and i t was removed. She became septic with it. Hypokalemia 10/18/2019 Leukocytosis 10/18/2019 Sepsis 10/18/2019 Encounters Care Team Description Date Type Specialty Lenin Vieira MD 03/31/2021 Documentation Transplant Lenin Vieira MD Gastroparesis (Primary Dx); Type 2 diabetes mellitus with other specified complication, with long-term current use of insulin (HCC); Wound infection after surgery; Incisional hernia, without obstruction or gangrene; Class 1 obesity due to excess calories with body mass index (BMI) of 32.0 to 32.9 in adult, unspecified whether serious comorbidity present 03/25/2021 Video Visit Transplant Yajaira Denton RN 03/24/2021 Telephone Transplant Hepatolo Lavonne Correa LPN 03/18/2021 Telephone Transplant Hepatolo Wes Hart MD Johnson, Kenneth S 03/09/2021 Anesthesia General Surgery Event Lenin Vieira MD REPAIR, HERNIA, INCISIONAL 03/09/2021 Surgery General Surgery Lenin Vieira MD Gastroparesis (Primary Dx); Abscess of liver; Wound infection after surgery; Abscess of liver; 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 mellitus (HCC); Incisional hernia, without obstruction or gangrene; Type 2 diabetes mellitus with other specified complication, with long-term current use of insulin (HCC); Chronic wound infection of abdomen, subsequent encounter 03/09/2021 [facility] General Surgery - Encounter 03/16/2021 Lenin Vieira MD Encounter for preoperative screening lab oratory testing for COVID-19 virus 03/06/2021 Lab Lab Lenin Vieira MD 03/03/2021 Documentation Transplant Yajaira Denton RN Encounter for preoperative screening lab oratory testing for COVID-19 virus (Primary Dx); Wound infection after surgery; Abscess of liver 02/24/2021 Orders Only Transplant Hepatolo gy Encounter for consultation 02/23/2021 Imaging Radiology Appointment Encounter for consultation 02/23/2021 Imaging Radiology Appointment Lenin Vieira MD Follow-up on test results 02/23/2021 Telephone Transplant Lavonne Dai LPN 02/23/2021 Telephone Transplant HepatLenin Padron MD 02/23/2021 Documentation Transplant Lenin Vieira MD Follow-up on test results 02/21/2021 Telephone Transplant Lenin Vieira MD 02/13/2021 Documentation Transplant Laurie Jacobson PA-C Forster, Jameson, MD Gastroparesis (Primary Dx) 02/11/2021 Office Visit Transplant Laurie Jacobson PA-C Walker, Brittany, NP Chronic hepatitis C without hepatic coma (HCC) (Primary Dx) 02/11/2021 Office Visit Transplant Hepatolo gy Gerald Morales MD Diarrhea, unspecified type 02/11/2021 Lab Lab Thalia Mitchell RN Barbara 02/11/2021 Documentation Transplant HepatThalia Graves RN [facility] Wound infection after surgery (Primary D x); Gastroparesis 02/11/2021 Orders Only Transplant Gerald Hernandez MD Diarrhea, unspecified type (Primary Dx); Nausea and vomiting, intractability of vomiting not specified, unspecified vomiting type; Gastroparesis 02/10/2021 Office Visit Gastroenterology from Last 3 Months Immunizations Name Administration Dates Next Due Hepatitis A (adult) 09/09/2020 03/12/2021 Hepatitis B Vaccine 10/16/2020, 09/09/2020 10/10/2020 (Recombinant), Cpg Adjuvanted Influenza QIV (IM) 03/09/2021 Family History Medical History Relation Name Comments Kidney cancer Father One kidney removed. Stroke Father Heart failure Maternal Grandfather Breast cancer Maternal Grandmother Cervical cancer Maternal Grandmother Emphysema Maternal Grandmother Lung disease Maternal COPD Grandmother Heart attack Mother Was given heparin h ad an intra-abdominal catastrophe. Other Paternal Traumatic injury. Grandfather Breast cancer Paternal All women in her fa ther's lineage had breast Grandmother cancers. Lung disease Sister Relation Name Status Comments Father Alive Maternal Grandfather Maternal Grandmother Mother Paternal Grandfather Paternal Grandmother Sister Alive Social History Date Tobacco Use Types Packs/Day Years Used 1987 - 12/29/2020 Former Smoker Cigarettes 0.5 Smokeless Tobacco: Never Used Comments: 2.5 ppd until 2019 (52.5 pys); reports 5 cig /day 05/27/20. Comments Alcohol Use Standard Drinks/Week Not Currently 0 (1 standard drink = 0.6 o z pure alcohol) Sex Assigned at Date Recorded Not on file Last Filed Vital Signs Reading Time Taken Comments Vital Sign 135/72 03/16/2021 3:27 PM MEDICAL TECHNOLOGIST CHEMISTRY Blood Pressure 94 03/16/2021 3:27 PM MEDICAL TECHNOLOGIST CHEMISTRY Pulse 36.8 C (98.3 F) 03/16/2021 3:27 PM MEDICAL TECHNOLOGIST CHEMISTRY Temperature 16 03/16/2021 3:27 PM MEDICAL TECHNOLOGIST CHEMISTRY Respiratory Rate 94% 03/16/2021 3:27 PM MEDICAL TECHNOLOGIST CHEMISTRY Oxygen Saturation - - Inhaled Oxygen Concentration 82.1 kg (181 lb) 03/16/2021 4:40 AM MEDICAL TECHNOLOGIST CHEMISTRY Weight 160 cm (5' 2.99") 03/09/2021 5:23 PM MEDICAL TECHNOLOGIST CHEMISTRY Height 32.07 03/09/2021 5:23 PM MEDICAL TECHNOLOGIST CHEMISTRY Body Mass Index Plan of Treatment Health Maintenance Due Date Last Done Comments Diabetes Mellitus 1975 Ophthalmology Exam Lipid Screening 1975 Td/Tdap# 1975 Diabetes Mellitus Foot 06/30/1985 Exam Diabetes Mellitus 01/27/2020 07/28/2019, Hemoglobin A1C 07/28/2019, 11/25/2018, Additional history exists COVID-19 Vaccine (3 - 08/21/2020 07/24/2020, Moderna risk 4-dose 06/26/2020 series) Pneumococcal Vaccine: 01/17/2022 08/15/2018, Pediatrics (0 to 5 Years) 01/17/2017 and At-Risk Patients (6 to 64 Years) (3 of 4 - PPSV23) Influenza Vaccine Completed 03/09/2021, 01/25/2020, 02/21/2019, Additional history exists Implants Device Identifier Shelf Expiration Date Model / Serial / L ot Explanted Type Area Manufactur er 11/19/2021 4351-35 / [id number] / Gastric Enterra Lead Kit(Contains Non-Tissue N/A: Stomach [employer] Implant) 4351-35 - [id number] Implant NEURO Implanted: Qty: 1 on 02/08/2020 by MODULATION Lenin Vieira MD at [facility] Explanted: Qty: 1 on 05/30/2020 by Lenin Vieira MD at [facility] 11/14/2021 4351-35 / [id number] / Gastric Enterra Lead Kit(Contains Non-Tissue N/A: Stomach [employer] Implant) 4351-35 - [id number] Implant NEURO Implanted: Qty: 1 on 02/08/2020 by MODULATION Lenin Vieira MD at [facility] Explanted: Qty: 1 on 05/30/2020 by Lenin Vieira MD at [facility] 04/21/2021 19765 / [id number] / Implant Neurostimulator Enterra Ii Non-Tissue N/A: Stomac h [employer] Gastric 08499 - [id number] Implant NEURO Implanted: Qty: 1 on 02/08/2020 by MODULATION Lenin Vieira MD at [facility] Explanted: Qty: 1 on 05/30/2020 by Lenin Vieira MD at [facility] Procedures Comments Procedure Name Priority Date/Time Associated Diag nosis GLUCOSE POC Timed 03/16/2021 5:26 PM MEDICAL TECHNOLOGIST CHEMISTRY GLUCOSE POC Timed 03/16/2021 11:49 AM MEDICAL TECHNOLOGIST CHEMISTRY CBC AND DIFF (MANUAL DIFF Routine 03/16/2021 IF NECESSARY) 10:35 AM MEDICAL TECHNOLOGIST CHEMISTRY BASIC METABOLIC PANEL Routine 03/16/2021 10:35 AM MEDICAL TECHNOLOGIST CHEMISTRY GLUCOSE POC Timed 03/16/2021 7:33 AM MEDICAL TECHNOLOGIST CHEMISTRY GLUCOSE POC Timed 03/15/2021 9:11 PM MEDICAL TECHNOLOGIST CHEMISTRY GLUCOSE POC Timed 03/15/2021 5:08 PM MEDICAL TECHNOLOGIST CHEMISTRY GLUCOSE POC Timed 03/15/2021 12:10 PM MEDICAL TECHNOLOGIST CHEMISTRY GLUCOSE POC Timed 03/15/2021 7:18 AM MEDICAL TECHNOLOGIST CHEMISTRY GLUCOSE POC Timed 03/14/2021 9:22 PM MEDICAL TECHNOLOGIST CHEMISTRY GLUCOSE POC Timed 03/14/2021 4:05 PM MEDICAL TECHNOLOGIST CHEMISTRY GLUCOSE POC Timed 03/14/2021 11:16 AM MEDICAL TECHNOLOGIST CHEMISTRY PHOSPHORUS Timed 03/14/2021 8:23 AM MEDICAL TECHNOLOGIST CHEMISTRY MAGNESIUM Timed 03/14/2021 8:23 AM MEDICAL TECHNOLOGIST CHEMISTRY COMPREHENSIVE METABOLIC Timed 03/14/2021 PANEL 8:23 AM MEDICAL TECHNOLOGIST CHEMISTRY GLUCOSE POC Timed 03/14/2021 7:41 AM MEDICAL TECHNOLOGIST CHEMISTRY GLUCOSE POC Timed 03/13/2021 9:08 PM MEDICAL TECHNOLOGIST CHEMISTRY GLUCOSE POC Timed 03/13/2021 4:00 PM MEDICAL TECHNOLOGIST CHEMISTRY GLUCOSE POC Timed 03/13/2021 11:09 AM MEDICAL TECHNOLOGIST CHEMISTRY PHOSPHORUS Timed 03/13/2021 7:52 AM MEDICAL TECHNOLOGIST CHEMISTRY MAGNESIUM Timed 03/13/2021 7:52 AM MEDICAL TECHNOLOGIST CHEMISTRY COMPREHENSIVE METABOLIC Timed 03/13/2021 PANEL 7:52 AM MEDICAL TECHNOLOGIST CHEMISTRY GLUCOSE POC Timed 03/13/2021 7:34 AM MEDICAL TECHNOLOGIST CHEMISTRY GLUCOSE POC Timed 03/12/2021 9:07 PM MEDICAL TECHNOLOGIST CHEMISTRY GLUCOSE POC Timed 03/12/2021 5:42 PM MEDICAL TECHNOLOGIST CHEMISTRY GLUCOSE POC Timed 03/12/2021 11:17 AM MEDICAL TECHNOLOGIST CHEMISTRY LAVENDER TOP Timed 03/12/2021 8:00 AM MEDICAL TECHNOLOGIST CHEMISTRY EXTRA TUBES Routine 03/12/2021 8:00 AM MEDICAL TECHNOLOGIST CHEMISTRY PHOSPHORUS Timed 03/12/2021 7:59 AM MEDICAL TECHNOLOGIST CHEMISTRY MAGNESIUM Timed 03/12/2021 7:59 AM MEDICAL TECHNOLOGIST CHEMISTRY COMPREHENSIVE METABOLIC Timed 03/12/2021 PANEL 7:59 AM MEDICAL TECHNOLOGIST CHEMISTRY GLUCOSE POC Timed 03/12/2021 7:37 AM MEDICAL TECHNOLOGIST CHEMISTRY GLUCOSE POC Timed 03/11/2021 8:09 PM MEDICAL TECHNOLOGIST CHEMISTRY GLUCOSE POC Timed 03/11/2021 5:29 PM MEDICAL TECHNOLOGIST CHEMISTRY GLUCOSE POC Timed 03/11/2021 12:25 PM MEDICAL TECHNOLOGIST CHEMISTRY GLUCOSE POC Timed 03/11/2021 7:29 AM MEDICAL TECHNOLOGIST CHEMISTRY PHOSPHORUS Timed 03/11/2021 2:17 AM MEDICAL TECHNOLOGIST CHEMISTRY MAGNESIUM Timed 03/11/2021 2:17 AM MEDICAL TECHNOLOGIST CHEMISTRY CBC AND DIFF (MANUAL DIFF Routine 03/11/2021 IF NECESSARY) 2:17 AM MEDICAL TECHNOLOGIST CHEMISTRY COMPREHENSIVE METABOLIC Timed 03/11/2021 PANEL 2:17 AM MEDICAL TECHNOLOGIST CHEMISTRY GLUCOSE POC Timed 03/10/2021 8:31 PM MEDICAL TECHNOLOGIST CHEMISTRY GLUCOSE POC Timed 03/10/2021 5:20 PM MEDICAL TECHNOLOGIST CHEMISTRY GLUCOSE POC Timed 03/10/2021 2:31 PM MEDICAL TECHNOLOGIST CHEMISTRY GLUCOSE POC Timed 03/10/2021 11:23 AM MEDICAL TECHNOLOGIST CHEMISTRY GLUCOSE POC Timed 03/10/2021 7:38 AM MEDICAL TECHNOLOGIST CHEMISTRY GLUCOSE POC Timed 03/10/2021 3:47 AM MEDICAL TECHNOLOGIST CHEMISTRY COMPLETE BLOOD COUNT Routine 03/10/2021 12:26 AM MEDICAL TECHNOLOGIST CHEMISTRY PHOSPHORUS Routine 03/10/2021 12:25 AM MEDICAL TECHNOLOGIST CHEMISTRY MAGNESIUM Routine 03/10/2021 12:25 AM MEDICAL TECHNOLOGIST CHEMISTRY BASIC METABOLIC PANEL Routine 03/10/2021 12:25 AM MEDICAL TECHNOLOGIST CHEMISTRY GLUCOSE POC Timed 03/10/2021 12:07 AM MEDICAL TECHNOLOGIST CHEMISTRY GLUCOSE POC Timed 03/09/2021 8:39 PM MEDICAL TECHNOLOGIST CHEMISTRY GLUCOSE POC Timed 03/09/2021 6:31 PM MEDICAL TECHNOLOGIST CHEMISTRY GLUCOSE POC Timed 03/09/2021 4:40 PM MEDICAL TECHNOLOGIST CHEMISTRY CULTURE, ANAEROBE Routine 03/09/2021 Wound infect ion after 3:32 PM MEDICAL TECHNOLOGIST CHEMISTRY surgery Abscess of liver TISSUE PATHOLOGY OR Routine 03/09/2021 Wound infe ction after BIOPSY 3:20 PM MEDICAL TECHNOLOGIST CHEMISTRY surgery Abscess of liver CULTURE, TISSUE WITH GRAM Routine 03/09/2021 Woun d infection after STAIN (AEROBIC) 3:18 PM MEDICAL TECHNOLOGIST CHEMISTRY surgery Abscess of liver ANESTHESIA PERIPHERAL IV Routine 03/09/2021 2:45 PM MEDICAL TECHNOLOGIST CHEMISTRY REPAIR, HERNIA, 03/09/2021 Wound infection aft er INCISIONAL 2:15 PM MEDICAL TECHNOLOGIST CHEMISTRY surgery Abscess of liver APPLICATION, WOUND VAC 03/09/2021 Wound infectio n after 2:15 PM MEDICAL TECHNOLOGIST CHEMISTRY surgery Abscess of liver IRRIGATION AND 03/09/2021 Wound infection aft er DEBRIDEMENT, ABDOMEN 2:15 PM MEDICAL TECHNOLOGIST CHEMISTRY surgery Abscess of liver MAGNESIUM Routine 03/09/2021 12:30 PM MEDICAL TECHNOLOGIST CHEMISTRY COMPLETE BLOOD COUNT STAT 03/09/2021 12:30 PM MEDICAL TECHNOLOGIST CHEMISTRY BASIC METABOLIC PANEL STAT 03/09/2021 12:30 PM MEDICAL TECHNOLOGIST CHEMISTRY SARS-COV-2 (COVID-19) Routine 03/06/2021 Encounte r for 9:51 AM MEDICAL TECHNOLOGIST CHEMISTRY preoperative screening laboratory testing for COVID-[address] ABDOMEN OUTSIDE IMAGES Routine 02/23/2021 Enco unter for FOR PACS 1:[address] ABDOMEN OUTSIDE IMAGES Routine 02/23/2021 Enco unter for FOR PACS 1:09 PM CDT consultation CLOSTRIDIUM DIFFICILE Routine 02/11/2021 Diarrhea , unspecified TOXIN BY PCR 7:00 AM CDT type from Last 3 Months Results * GLUCOSE POC (03/16/2021 5:26 PM MEDICAL TECHNOLOGIST CHEMISTRY) Only the most recent of 33 results within the time period is included. Glucose POC 122 (H) 70 - 100 mg/dL [facility] Specimen Blood - Venous Performing Organization Address City/[facility] P lidya Number [id number] [place], [place] [address] * CBC and Diff (manual diff if necessary) (03/16/2021 10:35 AM MEDICAL TECHNOLOGIST CHEMISTRY) Only the most recent of 2 results within the time period is included. WBC 10.36 4.00 - 11.00 TH/uL [facility] RBC 4.41 4.00 - 5.00 mil/uL [facility] Hemoglobin 13.8 12.0 - 15.0 g/dL [facility] Hematocrit 41 36 - 45 % [facility] MCV 92 80 - 99 fL [facility] MCH 31 27 - 34 pg [facility] MCHC 34 32 - 36 % [facility] RDW 13.0 9.0 - 14.5 % [facility] Platelet Count 203 140 - 400 Th/uL [facility] MPV 10.8 9.4 - 12.3 fL [facility] Nucleated RBCs 0 0 - 0 /100 WBC [facility] % Neutrophils 73 45 - 78 % [facility] % Lymphocytes 17 15 - 47 % [facility] % Monocytes 8 0 - 12 % [facility] % Eosinophils 1 0 - 7 % [facility] % Basophils 0 0 - 2 % [facility] % Imm Grans 0 0 - 1 % [facility] # Granulocytes 7.56 (H) 1.70 - 6.80 TH/uL [facility] # Lymphocytes 1.75 1.00 - 3.30 TH/uL [facility] # Monocytes 0.81 0.20 - 0.90 TH/uL [facility] # Eosinophils 0.13 0.00 - 0.40 TH/uL [facility] # Basophils 0.03 0.00 - 0.10 TH/uL [facility] Specimen Blood - Venous Performing Organization Address City/[facility] P lidya Number [id number] [place], [place] [address] * Basic Metabolic Panel (03/16/2021 10:35 AM MEDICAL TECHNOLOGIST CHEMISTRY) Only the most recent of 3 results within the time period is included. Sodium 136 136 - 145 mEq/L [facility] Potassium 4.2 3.4 - 5.1 mEq/L [facility] Chloride 105 98 - 107 mEq/L [facility] Carbon Dioxide 25 20 - 31 mEq/L [facility] Anion Gap 6 5 - 17 mmol/L [facility] Calcium 9.3 8.3 - 10.6 mg/dL [facility] Glucose 173 (H) 70 - 100 mg/dL [facility] Blood Urea 15 9 - 23 mg/dL [facility] Nitrogen Creatinine 0.90 0.55 - 1.02 mg/dL [facility] eGFR Male 91.3 60.0 - 200.0 [facility] Non-AA mL/min/1.73m*2 eGFR Male AA 110.6 60.0 - 200.0 [facility] mL/min/1.73m*2 eGFR Female 67.7 60.0 - 200.0 [facility] Non-AA mL/min/1.73m*2 eGFR Female AA 82.1 60.0 - 200.0 [facility] mL/min/1.73m*2 Specimen Blood - Venous Performing Organization Address City/[facility]/ZIP Code P lidya Number [id number] [place], [place] [address] * Phosphorus (03/14/2021 8:23 AM MEDICAL TECHNOLOGIST CHEMISTRY) Only the most recent of 5 results within the time period is included. Phosphorus 3.8 2.4 - 5.1 mg/dL [facility] Specimen Blood - Venous Performing Organization Address City/State/ZIP Code P lidya Number [id number] [place], [place] [address] * Magnesium (03/14/2021 8:23 AM MEDICAL TECHNOLOGIST CHEMISTRY) Only the most recent of 6 results within the time period is included. Magnesium 1.70 1.60 - 2.60 mg/dL [facility] Specimen Blood - Venous Performing Organization Address City/[facility]/ZIP Code P lidya Number [id number] [place], [place] [address] * Comprehensive Metabolic Panel (03/14/2021 8:23 AM MEDICAL TECHNOLOGIST CHEMISTRY) Only the most recent of 4 results within the time period is included. Sodium 138 136 - 145 mEq/L [facility] Potassium 4.4 3.4 - 5.1 mEq/L [facility] Chloride 105 98 - 107 mEq/L [facility] Carbon Dioxide 27 20 - 31 mEq/L [facility] Anion Gap 6 5 - 17 mmol/L [facility] Anion Gap 6 mmol/L [facility] Calcium 9.1 8.3 - 10.6 mg/dL [facility] Glucose 143 (H) 70 - 100 mg/dL [facility] Protein Total 6.9 5.7 - 8.2 g/dL [facility] Serum Albumin 4.5 3.5 - 5.0 g/dL [facility] Alkaline 71Comment: Reference range 46 - 116 U/L SLR L Phosphatase updated 02/15/21 with [facility] conversion to [employer] instrumentation. Alanine 30 0 - 34 U/L [facility] Aminotransferas e Aspartate 34Comment: Reference range 0 - 34 U/L SLR L Aminotransferas updated 02/15/21 with [facility] e conversion to [employer] instrumentation. Bilirubin Total 0.60 0.30 - 1.20 mg/dL [facility] Blood Urea 19 9 - 23 mg/dL [facility] Nitrogen Creatinine 0.80 0.55 - 1.02 mg/dL [facility] eGFR Female AA 94.0 60.0 - 200.0 [facility] mL/min/1.73m*2 eGFR Female 77.6 60.0 - 200.0 [facility] Non-AA mL/min/1.73m*2 eGFR Male AA 126.7 60.0 - 200.0 [facility] mL/min/1.73m*2 eGFR Male 104.5 60.0 - 200.0 [facility] Non-AA mL/min/1.73m*2 Specimen Blood - Venous Performing Organization Address City/State/ZIP Code P lidya Number [id number] [place] [phone] * Lavender Top (03/12/2021 8:00 AM MEDICAL TECHNOLOGIST CHEMISTRY) Specimen Blood - Venous Performing Organization Address City/State/ZIP Code P lidya Number [id number] [place] [phone] * Complete Blood Count - In AM (03/10/2021 12:26 AM MEDICAL TECHNOLOGIST CHEMISTRY) Only the most recent of 2 results within the time period is included. WBC 13.33 (H) 4.00 - 11.00 TH/uL [facility] RBC 4.46 4.00 - 5.00 mil/uL [facility] Hemoglobin 14.0 12.0 - 15.0 g/dL [facility] Hematocrit 40 36 - 45 % [facility] MCV 91 80 - 99 fL [facility] MCH 31 27 - 34 pg [facility] MCHC 35 32 - 36 % [facility] RDW 12.5 9.0 - 14.5 % [facility] Platelet Count 220 140 - 400 Th/uL [facility] MPV 10.6 9.4 - 12.3 fL [facility] Nucleated RBCs 0 0 - 0 /100 WBC [facility] Specimen Blood - Venous Performing Organization Address City/[facility] Code P lidya Number [id number] [place] [phone] * Culture, Anaerobe (03/09/2021 3:32 PM MEDICAL TECHNOLOGIST CHEMISTRY) Culture growth No anaerobes isolated at 5 [facility] days Specimen Swab - Abdomen Performing Organization Address City/[facility] P lidya Number [id number] [place] [phone] * Tissue Pathology or Biopsy (03/09/2021 3:20 PM MEDICAL TECHNOLOGIST CHEMISTRY) Specimen Tissue - Abdomen Narrative [facility] - 03/11/2021 4:15 PM MEDICAL TECHNOLOGIST CHEMISTRY [facility] Pathology Group SURGICAL PATHOLOGY REPORT PATIENT: MILLER IRIZARRY /AGE/SEX: 1975 (Age: 45) /F ID #: [id number] SUBMITTING PHYSICIAN: Lenin Vieira M.D. CLIENT: [facility] COLLECTED: 03/09/2021 REPORTED: 03/11/2021 SPECIMEN #: [id number] ##################MICROSCOPIC INTERPRETATION################## Abdominal wall, excision: - Fibroadipose tissue with patchy acute inflammation, extensive foreign body giant cell reaction and fat necrosis. - Negative for malignancy. Chapincito Victor MD Report Electronically Signed Out LWD:03/11/21 SRINI(RESIDENT ASSISTANT) CLINICAL HISTORY/IMPRESSION: Abscess. SPECIMEN LABELED: Abdominal wall GROSS DESCRIPTION: The specimen is received in neutral buffered formalin, labeled with the patient name and further designated "abdominal wall." The specimen consists of an unoriented 12.5 x 8.3 x 4.0 cm aggregate of quintero-pink cauterized soft tissue fragments and up to 9.2 cm of skin. The epidermis is quintero-quiroga and wrinkled with depressed probe patent potential sinus tracts. Sectioning reveals 3 abscesses underlying the sinus tracts filled with quintero-white, mucinous debris ranging from 1.0 x 0.8 x 0.8 cm to 5.5 x 2.7 x 1.0 cm. No gross lesions are identified. Supervisor Boiler Repair sections of skin, sinus tract, and abscess are submitted in cassettes [id number]. (PAS) ps1 Professional Component performed by SRINI, a [facility] Pathologist located at [facility], [address] [place] [id number] Technical Component performed at [facility] [place]Pierre [place], [place] [address] If immunohistochemical stains and or in situ hybridization are cited in this report, the performance characteristics were determined by [facility] in compliance with CLIA'88 regulations. Some of these tests rely on the use of 'analyte specific reagents' and are subject to specific labeling requirements by the FDA. Known positive and negative control tissues demonstrate appropriate staining. Results should be interpreted with caution given the likelihood of false negativity on decalcified specimens. This testing was developed by [facility]. It has not been cleared or approved by the FDA. The FDA has determined that such clearance or approval is not necessary. ###END OF REPORT### Performing Organization Address City/[facility]/ZIP Code P lidya Number [facility] [id number] [place], [place] [address] [id number] * Culture, Tissue with Gram Stain (Aerobic) (03/09/2021 3:18 PM MEDICAL TECHNOLOGIST CHEMISTRY) Culture growth No growth at 4 days [facility] Gram Stain No polymorphonuclear [facility] Result leukocytes seen Gram Stain No organisms seen [facility] Result Specimen Tissue - Abdomen Performing Organization Address [facility]/ZIP Code P lidya Number [id number] [place], [place] [address] * ANESTHESIA PERIPHERAL IV (03/09/2021 2:45 PM MEDICAL TECHNOLOGIST CHEMISTRY) Modality Anatomical Region Laterality Other Narrative LandonTodd dupreeieFABIOLA - 03/09/2021 2:45 PM MEDICAL TECHNOLOGIST CHEMISTRY Amaya ArnettFABIOLA 03/09/2021 2:46 PM Peripheral IV End time: 03/09/2021 2:29 PM Performed by: resident Staffing Edy Galarza DO IV Placement IV placed Left Foot. Site was prepped with alcohol swabs and no local anesthetic was used. A 22 gauge needle was used with anatomical landmarks technique. * COVID-19 Preprocedure PCR (non-PUI) (03/06/2021 9:51 AM MEDICAL TECHNOLOGIST CHEMISTRY) SARS-COV-2 PCR Negative Negative [facility] Specimen Swab - NASOPHARYNGEAL SWAB Narrative [facility] - 03/06/2021 2:34 PM MEDICAL TECHNOLOGIST CHEMISTRY This RT-PCR test has been authorized by the FDA under an Emergency Use Authorization (EUA) for use by authorized laboratories. Performing Organization Address City/[facility]/ZIP Code P lidya Number [id number] [place], [place] [address] * CT Outside images for PACS Abdomen (02/23/2021 1:09 PM CDT) Only the most recent of 2 results within the time period is included. Specimen Performing Organization Address City/[facility] Code P lidya Number [id number] * Clostridium Difficile Toxin by PCR (02/11/2021 7:00 AM CDT) C difficile Not Detected Not Detected [facility] Toxin by PCR [facility] Lab Specimen Stool Performing Organization Address City/[facility] Code P lidya Number [facility] [address] [place] [address] LABORATORIES [facility] [address] [place] [address] from Last 3 Months Insurance Type Payer Benefit Subscriber ID Effective Phone Address Plan / Dates Group MEDICAID MANAGED CARE [employer] [id number] 2018-P [address] [place]TER resent [id number] [facility] [id number] Advance Directives For more information, please contact: [phone] Patient Supervisor Boiler Repair Explanation Type Date Recorded Advance Directives and Living Will Power of Fixed Income Director Health Care Directive Date Inactivated Comments Code Status Date Activated Full Code 03/09/2021 1:46 PM 06/03/2020 5:33 PM Full Code 05/30/2020 10:44 AM 05/08/2020 8:06 PM Full Code 05/02/2020 1:30 PM 02/13/2020 3:56 PM Full Code 02/08/2020 3:05 PM 02/08/2020 3:05 PM Full Code 02/08/2020 7:30 AM Care Teams Start Date End Date Construction Specialist Relationship Specialty 10/24/19 James Euceda MD PCP - General Family [address] [place] [phone]
--- OUTSIDE RECORDS SUMMARY | 2021-05-01 12:53 | XMS REPORT | Encounter Summary ---
Author Author [facility] Organization [facility] Address Unknown Phone Unavailable Care Team Providers Care Clinical Trial Educator Name Role Phone James Euceda MD PCP Encounter Details Care Team Description Date Type Department Lenin Vieira MD [address] [place] [address] 03/31/2021 Documentation [facility] [address] [place] [address] Social History Date Tobacco Use Types Packs/Day Years Used 1987 - 12/29/2020 Former Smoker Cigarettes 0.5 Smokeless Tobacco: Never Used Comments: 2.5 ppd until 2019 (52.5 pys); reports 5 cig /day 05/27/20. Comments Alcohol Use Standard Drinks/Week Not Currently 0 (1 standard drink = 0.6 o z pure alcohol) Sex Assigned at Date Recorded Not on file documented as of this encounter Plan of Treatment Not on filedocumented as of this encounter Visit Diagnoses Not on filedocumented in this encounter Care Teams Start Date End Date Clinical Trial Educator Relationship Specialty 10/24/19 James Euceda MD PCP - General [address] [phone] documented as of this encounter
--- OUTSIDE RECORDS SUMMARY | 2021-05-01 12:53 | XMS REPORT | Encounter Summary ---
Author Author [facility] Organization [facility] Address Unknown Phone Unavailable Care Team Providers [facility] Chaplain Name Role Phone James Euceda MD PCP Reason for Referral * Consultation (Routine) - Closed Diagnoses / Procedures Referred By Contact Referred To Conta ct Specialty Diagnoses Chronic wound infection of abdomen, subsequent encounter Eryn Dent MD [address] [facility] [place] [address] [facility] [address] [facility], [address] [place] [address] Wound Care Referral ID Status Reason Start Date Expiration Visits Vi sits Date Requested Authorized [id number] Closed Specialty Services 03/16/2021 09/13/2021 1 1 Required ER CARE SOCIAL WORKER * Home Health Care (Routine) - Authorized Diagnoses / Procedures Referred By Contact Referred To Conta ct Specialty Diagnoses Chronic wound infection of abdomen, subsequent encounter Jovon Ospina DO [address] [facility] 6th [place] [address] Home Health Services Referral ID Status Reason Start Date Expiration Visits Vi sits Date Requested Authorized [id number] Authorized Specialty Services 03/16/2021 09/13/2021 1 1 Required ER CARE SOCIAL WORKER * Home Health Care (Routine) - Authorized Diagnoses / Procedures Referred By Contact Referred To Conta ct Specialty Diagnoses Gastroparesis Delia Gonzalez NP [address] [facility] [address] [place] [address] Home Health Services Referral ID Status Reason Start Date Expiration Visits Vi sits Date Requested Authorized [id number] Authorized Specialty Services 03/09/2021 09/06/2021 1 1 Required ER CARE SOCIAL WORKER Reason for Visit * Auth/Cert (Routine) - New Request Diagnoses / Procedures Referred By Contact Referred To Conta ct Specialty Diagnoses abscess Procedures Case request operating room: DEBRIDEMENT, APPLICATION, WOUND VAC DE DEBRIDEMENT, SKIN, SUB-Q TISSUE,=<20 SQ CM DE NEGATIVE PRESSURE WOUND THERAPY DME </= 50 SQ CM IRRIGATION AND DEBRIDEMENT, ABDOMEN APPLICATION, WOUND VAC Lenin Wall MD [address] [facility] [address] [place] [address] Referral ID Status Reason Start Date Expiration Visits Vi sits Date Requested Authorized [id number] New Request 02/24/2021 02/24/2022 1 1 Encounter Details Care Team Description Date Type Department Lenin Wall MD [address] [address] Gastroparesis (Primary Dx); Abscess of liver; Wound infection after surgery; Abscess of liver; 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 Comments Alcohol Use Standard Drinks/Week Not Currently 0 (1 standard drink = 0.6 o z pure alcohol) Sex Assigned at Date Recorded Not on file documented as of this encounter Last Filed Vital Signs Reading Time Taken Comments Vital Sign 135/72 03/16/2021 3:27 PM [employer] WORK[employer] Blood Pressure 94 03/16/2021 3:27 PM [employer] SOCIAL WORKER Pulse 36.8 C (98.3 F) 03/16/2021 3:27 PM [employer] SOCIAL WORKER Temperature 16 03/16/2021 3:27 PM [employer] SOCIAL WORKER Respiratory Rate 94% 03/16/2021 3:27 PM [employer] C[employer] SOCIAL WORKER Oxygen Saturation - - Inhaled Oxygen Concentration 82.1 kg (181 lb) 03/16/2021 4:40 AM [employer] C[employer] SOCIAL WORKER Weight 160 cm (5' 2.99") 03/09/2021 5:23 PM [employer] C[employer] SOCIAL WORKER Height 32.07 03/09/2021 5:23 PM [employer] SOCIAL WORKER Body Mass Index documented in this encounter Discharge Summaries * Lenin Wall MD - 03/16/2021 5:10 PM [employer] C[employer] SOCIAL WORKER Physician Discharge Summary Admit date: 03/09/2021 Discharge date and time: 03/16/2021 8:15 PM Admitting Physician: Lenin Wall MD Discharge Physician: Eryn Dent MD Admission Diagnoses: Persistent Wound infection. Discharge Diagnoses: Abscess Admission Condition: Stable Discharged Condition: Stable Indication for Admission: Wound infection after surgery Hospital Course: Ms. Miller Irizarry is a 45 y.o. woman with history a ga stric electrical stimulator placed on 02/08/2020 which had an excellent result, lowering her Total Symptom Score from 25/28 to 4/4; however, her GES loosened, t wisted, became infected, and was removed. Since that time, she has been cured of HCV but has continued to have symptoms of gastroparesis with a TSS of 16/20. She now presents with chronic wound which underwent incision and debridement and p lacement of wound vac on 03/09/2021 to clean up the area to allow for eventual r eplacement of gastric pacemaker. At first, she needed more time working with PT to become independent to discharge home with home health. Infectious disease was consulted during her hospitalization d/t wound infection at the GES site. Origi brett held off because cultures were negative but ultimately recommended doxycyc line, which was she was on before surgery. Treated her diabetes appropriately wh ile she was inpatient. Were working on discharge with [place] early in her hospitaliz ation knowing that would be the biggest barrier. Ultimately, she was tolerating a regular diet, sating well on room air, pain was well controlled, abx plan was agreed upon, wound vac was established for outpt with appropriate home health va c changes, and follow up was scheduled for her to return to the clinic in two we eks. Return precautions were discussed, medications were prescribed, and she was eagerly discharged home. Consults: Wound care, infectious disease, nutrition Treatments, Significant Diagnostic Studies: As seen above under hospital course. Discharge Exam: General Appearance: Alert and oriented, cooperative, no acute distress. Resting comfortably. HEENT: Grossly atraumatic, no visible tracheal deviation. Pulmonary: Unlabored respirations, no acute respiratory distress. Abdomen: Soft, tenderness to palpation in suprapubic and RLQ, no guarding, no di stention, wound vac in place with good seal Neurologic: Cranial nerves grossly intact Extremities: Warm and well perfused Disposition: Home-Health Care c ER CARE SOCIAL WORKER documented in this encounter Discharge Instructions * Discharge Instr - Other Orders* Christine Garcia RN [facility] - 03/13/2021 12:07 PM [employer] C[employer] SOCIAL WORKER Abdominal wound care; PLEASE NOTE THAT 1 PIECE WHITE FOAM HAS BEEN PLACED TO TRUPTI TH WOUNDS. Mepitel one to wound edges and irma wound skin for comfort, followed by vac dr chino. 2. Place white foam in 9 oclock tunnel of rt abd wound. Be sure piece is large enough to visualize in wound. Fill the rest of wound with black foam. 3. Place a small piece of white foam over fragile are in center of wound. Then, place black foam to slightly fill undermined area from 7-11 and fill wound bed. 4. Bridge the two wound together. 3x/week. With home vac, may consider turning suction to -150mmhg with vac strugg les maintaining suction at -125mmhg ER CARE SOCIAL WORKER * Pre-Procedure Instructions* Sruthi Buckley RN - 03/04/2021 2:04 PM [employer] C[employer] SOCIAL WORKER Current Outpatient Medications Medication Sig Note: insulin detemir U-100 (LEVEMIR) 100 unit/mL injection Inject 15 Units under the skin nightly. Note:as directed albuterol (PROVENTIL HFA) 90 mcg/actuation HFA inhaler Inhale 2 puffs every 6 (six) hours as needed for wheezing. Note:bring day of surgery BREO ELLIPTA 100-25 mcg/dose INHALER Inhale 1 puff daily. Note:take.dos EPINEPHrine (EPIPEN) 0.3 mg/0.3 mL AtIn Note: GVOKE HYPOPEN 2-PACK 1 mg/0.2 mL AtIn USE DIRECTED SUBCUTANEOUSLY PRN FO R SEVERE HYPOGLYCEMIA Note: ipratropium-albuteroL (DUO-NEB) 0.5-3 mg/3 mL nebulizer Inhale 3 mL via nebu lizer as needed. Note:as needed LACTOBACILLUS RHAMNOSUS GG ORAL Take 1 capsule by mouth daily. Note:hold no w lancets (LANCETS,ULTRA THIN) 26 gauge Misc USE THREE TIMES DAILY TO TEST BLO OD SUGAR Note: lisinopriL (PRINIVIL,ZESTRIL) 10 MG tablet Take 5 mg by mouth nightly at bed time. Note:hold 24 hours prior to surgery metoprolol tartrate (LOPRESSOR) 25 MG tablet Take 25 mg by mouth nightly. No te:take evening dose omeprazole (PRILOSEC) 20 MG capsule Take 40 mg by mouth 2 (two) times a day before breakfast and lunch. Note:take.dos ondansetron (ZOFRAN-ODT) 8 MG disintegrating tablet Take 8 mg by mouth every 6 (six) hours. Note:take.dos promethazine (PHENERGAN) 50 MG tablet TAKE 1/2 TO 1 TABLET BY MOUTH EVERY 8 HOURS FOR 7 DAYS NEEDED Note: rosuvastatin (CRESTOR) 10 MG tablet Take 10 mg by mouth daily. Note: scopolamine (TRANSDERM-SCOP) 1 mg over [address] 1 patch on the skin ever y 72 hours. Note:as directed sucralfate (CARAFATE) 1 gram tablet Take 1 g by mouth 2 (two) times a day as needed. Do not take within 30min of antacid or 2hrs of other meds. Take on empty stomach. Note:hold day of surgery traZODone (DESYREL) 150 MG tablet Take 150 mg by mouth nightly. nightly at b edtime Note: ER CARE SOCIAL WORKER documented in this encounter Medications at Time of Discharge Start Date End Date Medication Sig Dispensed Refills 03/13/2021 acetaminophen (TYLENOL) Take 2 0 500 MG tablet tablets (1,000 mg total) by mouth every 8 (eight) hours. albuterol (PROVENTIL HFA) Inhale 2 0 90 mcg/actuation HFA puffs every 6 inhaler (six) hours as needed for wheezing. atorvastatin (LIPITOR) 10 Take 10 mg by 0 MG tablet mouth daily. 02/14/2020 BREO ELLIPTA 100-25 Inhale 1 puff 0 mcg/dose INHALER daily. 12/14/2019 EPINEPHrine (EPIPEN) 0.3 0 mg/0.3 mL AtIn 02/25/2021 fentaNYL (DURAGESIC) 25 Place 25 0 mcg/hr patch patches on the skin every 3 (three) days. 12/19/2019 GVOKE HYPOPEN 2-PACK 1 USE 0 mg/0.2 mL AtIn DIRECTED SUBCUTANEOUSL Y PRN FOR SEVERE HYPOGLYCEMIA insulin detemir U-100 Inject 15 0 (LEVEMIR) 100 unit/mL Units under injection the skin nightly. ipratropium-albuteroL Inhale 3 mL 0 (DUO-NEB) 0.5-3 mg/3 mL via nebulizer nebulizer as needed. LACTOBACILLUS RHAMNOSUS Take 1 0 GG ORAL capsule by mouth daily. 07/14/2015 lancets (LANCETS,ULTRA USE THREE 0 THIN) 26 gauge Misc TIMES DAILY TO TEST BLOOD SUGAR lisinopriL Take 5 mg by 0 (PRINIVIL,ZESTRIL) 10 MG mouth nightly tablet at bedtime. metoprolol tartrate Take 25 mg by 0 (LOPRESSOR) 25 MG tablet mouth nightly. mirtazapine (REMERON) 30 Take 30 mg by 0 MG tabletIndications: mouth major depressive disorder nightly. omeprazole (PRILOSEC) 20 Take 40 mg by 0 MG capsule mouth 2 (two) times a day before breakfast and lunch. 03/13/2021 ondansetron (ZOFRAN-ODT) Take 1 tablet 120 tablet 0 8 MG disintegrating (8 mg total) tablet by mouth every 6 (six) hours. 03/13/2021 oxyCODONE (ROXICODONE) 5 Take 1-2 20 tablet 0 MG immediate release tablets (5-10 tablet mg total) by mouth every 4 (four) hours as needed. Max Daily Dose: 60 mg 08/05/2020 promethazine (PHENERGAN) TAKE 1/2 TO 1 0 50 MG tablet TABLET BY MOUTH EVERY 8 HOURS FOR 7 DAYS NEEDED 08/28/2020 rosuvastatin (CRESTOR) 10 Take 10 mg by 0 MG tablet mouth daily. scopolamine Place 1 patch 0 (TRANSDERM-SCOP) 1 mg on the skin over 3 days every 72 hours. 03/13/2021 sucralfate (CARAFATE) 1 Take 1 tablet 60 tablet 0 gram tablet (1 g total) by mouth on an empty stomach 2 times daily before meals. Do not take within 30min of antacid or 2hrs of other meds. traZODone (DESYREL) 150 Take 150 mg 0 MG tablet by mouth nightly. nightly at bedtime 03/13/2021 04/10/2021 doxycycline hyclate Take 1 tablet 56 tablet 0 (VIBRA-TABS) 100 MG (100 mg tabletIndications: SKIN total) by AND SOFT TISSUE INFECTION mouth 2 (two) times a day with meals. documented as of this encounter Progress Notes * Erica Mccurdy LCSW - 03/16/2021 7:14 PM [employer] C[employer] SOCIAL WORKER 03/16/211913 Final Discharge Disposition Final Discharge Disposition 06-Home Under Care of Organized Home Health Service Organization ER CARE SOCIAL WORKER * Jodie Mariee RRT - 03/16/2021 9:44 AM F[employer]ER CARE SOCIAL WORKER Attempted to give scheduled breathing treatment however the patient currently no t in the room. 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 I read and agree with Dr. Tejada's note below. I saw and examined Ms. Irizarry Tuesday morning. She was sitting up in her bed. She was having nausea but not having vomiting, fevers, or chills. Her wound VAC was changed Tuesday and resolved the pain she was feeling in her ri ght lateral wound. Over the last 24 hrs, her po intake was poorly recorded. Her urine output was 0.95 L. The WoundVAC put out 50 mL. Her blood work showed that her electrolytes are normal and her creatinine is 0.9 . Her CBC shows a normal WBC, a hemoglobin of 13.8, and a platelet count of 203. I agree with her discharge today, which this time happened, as the next time I s aw her was in the evening and she was packed up and awaiting her ride home. Lenin Wall MD [facility]: 7 Date: 03/16/21 Subjective: Met her ambulating the halls after getting a parfait from the cafeteria this mor gamaliel. No nausea or vomiting. Pain markedly improved since wound vac change. Eage r to get home but having issues with obtaining home wound vac placement. Objective: Patient Vitals for the past 4 hrs: BP Temp Temp src Pulse Resp SpO2 Weight 03/16/21 0440 82.1 kg (181 lb) 03/16/21 0325 132/69 36.6 C (97.9 F) Oral 81 16 97 % Intake/Output Summary (Last 24 hours) at 03/16/2021 0702 Last data filed at 03/16/2021 0325 Gross per 24 hour Intake Output 975 ml Net -975 ml Results for orders placed or performed during the hospital encounter of 03/09/21 (from the past 24 hour(s)) GLUCOSE POC Result Value Ref Range Glucose POC 139 (H) 70 - 100 mg/dL GLUCOSE POC Result Value Ref Range Glucose POC 114 (H) 70 - 100 mg/dL GLUCOSE POC Result Value Ref Range Glucose POC 160 (H) 70 - 100 mg/dL GLUCOSE POC Result Value Ref Range Glucose POC 162 (H) 70 - 100 mg/dL Physical Exam: General Appearance: Alert and oriented, cooperative, no acute distress. Resting comfortably. HEENT: Grossly atraumatic, no visible tracheal deviation. Pulmonary: Unlabored respirations, no acute respiratory distress. Cardiovascular: Regular rate and rhythm Abdomen: Soft, tenderness to palpation in suprapubic and RLQ, no guarding, no d istention, wound vac in place with good seal Neurologic: Cranial nerves grossly intact Extremities: Warm and well perfused Assessment/Plan: Miller Irizarry is a 45 y.o. woman with history a gastric electrical st imulator placed on 02/08/2020 which had an excellent result, lowering her Total Symptom Score from 25/28 to 4/4; however, her GES loosened, twisted, became infe cted, and was removed. Since that time, she has been cured of HCV but has contin ued to have symptoms of gastroparesis with a TSS of 16/20. She now presents with chronic wound which underwent incision and debridement and placement of wound v ac on 03/09 to clean up the area to allow for eventual replacement of gastric pa cemaker. - Pain control: Prn analgesia, added fentanyl patch discussed using ice to area - Antibiotics: Plan for 3-4 weeks PO Doxycycline 100 mg BID on discharge - Continue home meds - VTE Ppx: SCD,SQH - Diet: Consistent carb diet - SW: pending wound vac being set up at home she can go home. Gina Tejada MD PGY-4 General Surgery Pager [phone] Staff: Dr. 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 I read and agree with Dr. Ingram's note below. I saw and examined Ms. Irizarry Tuesday morning. She was sitting up in her bed. She had a bad night due to pain that was centered around the wound in her r ight upper quadrant. This was where the wound person had stuffed white foam. She says it feels like a bubble there. We have asked the wound nurse to come by and change it. She continues to have nausea but is not having vomiting, fevers, or chills. Over the last 24 hrs, she had No recorded po intake, which I do not believe is t he case. Her urine output was 0.8 L. There was no output recorded from the WoundVAC. She had a lab holiday today. Hopefully, she will be able to be discharged tomorrow. Lenin Wall MD [facility] Day: 6 Date: 03/15/21 Subjective: Had some increased pain this morning on right lower abdomen. This is new as no i ncreased pain yesterday. Had bowel movements yesterday. Ambulating. [place] in place with good seal. Objective: Patient Vitals for the past 4 hrs: Pulse Resp SpO2 03/15/21 0822 78 16 98 % Intake/Output Summary (Last 24 hours) at 03/15/2021 1136 Last data filed at 03/14/2021 1551 Gross per 24 hour Intake Output 400 ml Net -400 ml Results for orders placed or performed during the hospital encounter of 03/09/21 (from the past 24 hour(s)) GLUCOSE POC Result Value Ref Range Glucose POC 144 (H) 70 - 100 mg/dL GLUCOSE POC Result Value Ref Range Glucose POC 141 (H) 70 - 100 mg/dL GLUCOSE POC Result Value Ref Range Glucose POC 139 (H) 70 - 100 mg/dL Physical Exam: General Appearance: Alert and oriented, cooperative, no acute distress. Resting comfortably. HEENT: Grossly atraumatic, no visible tracheal deviation. Pulmonary: Unlabored respirations, no acute respiratory distress. Cardiovascular: Regular rate and rhythm Abdomen: Soft, tenderness to palpation in suprapubic and RLQ, no guarding, no d istention, wound vac in place with good seal Neurologic: Cranial nerves grossly intact Extremities: Warm and well perfused Assessment/Plan: Miller Irizarry is a 45 y.o. woman with history a gastric electrical st imulator placed on 02/08/2020 which had an excellent result, lowering her Total Symptom Score from 25/28 to 4/4; however, her GES loosened, twisted, became infe cted, and was removed. Since that time, she has been cured of HCV but has contin ued to have symptoms of gastroparesis with a TSS of 16/20. She now presents with chronic wound which underwent incision and debridement and placement of wound v ac on 03/09 to clean up the area to allow for eventual replacement of gastric pa cemaker. - Pain control: Prn analgesia, added fentanyl patch discussed using ice to area - Talked to [place] RN who will assess area and potentially change Vac today - Antibiotics: Plan for 3-4 weeks PO Doxycycline 100 mg BID on discharge - Continue home meds - VTE Ppx: SCD,SQH - Diet: Consistent carb diet - SW: difficulty with prior auth on home [place], will continue to work on this and p katarina for discharge home once approved Onesimo Ingram DO PGY2 General Surgery Pager: [phone] Staff: Dr. Wall ER CARE SOCIAL WORKER * Aston Spence RN CWOCN CLT - 03/15/2021 11:21 AM FOSTER CARE SOCIAL WORKER Images from the original note were not included. Follow up Wound Note Reason for Follow up: Vac change requested by Dr. Rubio due to patients c/o d iscomfort and pressure at wound site. Assessment: Patient premedicated for pain and tolerated the vac dressing change well. A tot al of 7 mls of 2% topical lidocaine used. Patient reports releif of pressure/di scomfort after vac dressing change. Next wound vac dressing change planned for Tuesday by wound team. 03/15/21 1121 Wound Incision Abdomen Right;Lateral Date First Assessed/Time First Assessed: 05/30/20 1020 Primary Wound Type: Inc ision Location: Abdomen Wound Location Orientation: Right;Lateral Dressing Status New dressing Wound Site Assessment [place];Moist Tunneling #1* (cm) 4 cm (est) Tunneling Position #1* (o'clock) 9 Drainage Description Serosanguineous Drainage Amount Small Irma-wound Assessment Intact Closure Wound Vac Interventions Site Care Dressing Type Wound Vac (Mepitel to irma-wound skin under drape. ) Dressing Changed New Next Dressing Change Due 03/18/21 Wound Incision Abdomen Mid-line Date First Assessed/Time First Assessed: 03/09/21 1613 Primary Wound Type: Inc ision Location: Abdomen Wound Location Orientation: Mid-line Dressing Status Dressing changed Wound Site Assessment [place];Moist Shape Round/oval Drainage Description Serosanguineous Drainage Amount Small Closure Wound Vac Interventions Site Care Dressing Type Wound Vac (Mepitel to irma-wound skin under drape. ) Dressing Changed New Next Dressing Change Due 03/18/21 Negative Pressure Wound Therapy Abdomen Placement Date/Time: 03/09/21 1545 Inserted by: DR WALL Wound Type: Surgic al Location: Abdomen Unit Type V.A.C. Ulta Foam/Dressing Type Removed (L: White-1, Blk-2; R: White-1, Blk-3. No Mepitel in wound. ) Foam/Dressing Type Applied (L: White-1, Blk-2; R: White-1, Blk-1.) Cycle Continuous Target Pressure (mmHg) 125 Intensity Low Canister Changed Yes (Document amount in Output) Bedside RN at bedside during the provided care. Change in Plan: None. 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 I read and agree with Dr. Ingram's note below. I saw and examined Ms. Irizarry Tuesday afternoon. She was sitting up on her bed. We reviewed the problems with getting the WoundVAC approved, which she feels may be due to the wound care service being now own by , which is new sin ce the last time she had a WoundVAC. She continues to have nausea but she is not having vomiting, fevers, or chills. Over the last 24 hrs, she had 0.72 L of recorded po intake. Her urine output was 0.8 L. The WoundVAC put out 90 mL. Her blood work showed that her electrolytes are nnormal and her creatinine is 0. 8. Her liver enzymes are normal. Stable. Hoping she can be discharged Tuesday. Lenin Wall MD [facility] Day: 5 Date: 03/14/21 Subjective: No acute events overnight. No vomiting. Pain well controlled. Frustrated about t he situation with wound vac coverage and insurance but understanding. No acute c omplaints or concerns at this time. Objective: Patient Vitals for the past 4 hrs: BP Temp Temp src Pulse Resp SpO2 03/14/21 1116 (!) 141/69 37.1 C (98.7 F) Oral 77 16 98 % 03/14/21 0933 80 16 95 % Intake/Output Summary (Last 24 hours) at 03/14/2021 1218 Last data filed at 03/14/2021 0842 Gross per 24 hour Intake 600 ml Output 790 ml Net -190 ml Results for orders placed or performed during the hospital encounter of 03/09/21 (from the past 24 hour(s)) GLUCOSE POC Result Value Ref Range Glucose POC 194 (H) 70 - 100 mg/dL GLUCOSE POC Result Value Ref Range Glucose POC 140 (H) 70 - 100 mg/dL GLUCOSE POC Result Value Ref Range Glucose POC 136 (H) 70 - 100 mg/dL Comprehensive Metabolic Panel Result Value Ref Range Sodium 138 136 - 145 mEq/L Potassium 4.4 3.4 - 5.1 mEq/L Chloride 105 98 - 107 mEq/L Carbon Dioxide 27 20 - 31 mEq/L Anion Gap 6 5 - 17 mmol/L Anion Gap 6 mmol/L Calcium 9.1 8.3 - 10.6 mg/dL Glucose 143 (H) 70 - 100 mg/dL Protein Total Serum 6.9 5.7 - 8.2 g/dL Albumin 4.5 3.5 - 5.0 g/dL Alkaline Phosphatase 71 46 - 116 U/L Alanine Aminotransferase 30 0 - 34 U/L Aspartate Aminotransferase 34 0 - 34 U/L Bilirubin Total 0.60 0.30 - 1.20 mg/dL Blood Urea Nitrogen 19 9 - 23 mg/dL Creatinine 0.80 0.55 - 1.02 mg/dL eGFR Female AA 94.0 60.0 - 200.0 mL/min/1.73m*2 eGFR Female Non-AA 77.6 60.0 - 200.0 mL/min/1.73m*2 eGFR Male AA 126.7 60.0 - 200.0 mL/min/1.73m*2 eGFR Male Non-AA 104.5 60.0 - 200.0 mL/min/1.73m*2 Magnesium Result Value Ref Range Magnesium 1.70 1.60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 WORKER INFECTIOUS DISEASE PROGRESS NOTE REASON FOR SEEING PATIENT: Antibiotic management for chronic abdominal wound s/p incision and debridement w ith placement of wound VAC SUBJECTIVE: Patient is active, alert, oriented No acute events overnight Patient endorses upper abdominal pain, pain is controlled with current pain shaji men She denies nausea or vomiting Patient passing flatus but not bowel movements Review of systems General: No fever, chills HEENT: No blurred vision, double vision, hearing loss Chest: No chest pain, palpitations, shortness of breath or cough Abdomen: Positive for abdominal pain, negative for diarrhea Neurologic: No weakness or numbness Skin: No rashes or pruritus OBJECTIVE: Patient looks well this morning, afebrile, still abdominal pain MEDICATIONS: Scheduled Medications: acetaminophen 1,000 mg Oral Q8H atorvastatin 20 mg Oral Nightly docusate sodium 100 mg Oral BID fluticasone furoate-vilanteroL 1 puff Inhalation Daily heparin (porcine) 5,000 Units Subcutaneous Q8H insulin detemir U-100 15 Units Subcutaneous Nightly insulin regular 2-7 Units Subcutaneous 4 times daily before meals and night ly ipratropium-albuteroL 3 mL Inhalation 4x daily lidocaine 0.1-0.3 mL Intradermal Once metoprolol tartrate 25 mg Oral Nightly mirtazapine 30 mg Oral Nightly ondansetron 8 mg Oral Q6H pantoprazole 40 mg Oral BID AC scopolamine 1 patch Transdermal Once [START ON 03/12/2021] scopolamine 1 patch Transdermal Q72H sucralfate 1 g Oral BID AC trazodone 150 mg Oral Nightly Continuous Infusions: PRN Medications: albuterol, albuterol, dextrose 50%, flumazeniL, glucagon OR glucagon, glucos e, HYDROmorphone, magnesium sulfate, miconazole nitrate, naloxone, ondansetron, oxyCODONE, potassium chloride OR potassium bicarb-citric acid OR potassi um chloride in water LABORATORY RESULTS: Last CBC: Most Recent Result within the last 7 days Lab Units 03/11/2121603/10/21 0026 03/09/21 1230 WBC TH/uL 5.99 13.33* 6.51 HEMOGLOBIN g/dL 12.8 14.0 13.9 HEMATOCRIT % 37 40 41 PLATELET COUNT Th/uL 175 220 213 Last BMP: Most Recent Result within the last 7 days Lab Units 03/11/2121603/10/21 0025 03/09/21 1230 SODIUM mEq/L 139 137 139 POTASSIUM mEq/L 3.8 4.0 3.9 CARBON DIOXIDE mEq/L 25 24 24 BLOOD UREA NITROGEN mg/dL 17 14 10 CREATININE mg/dL 0.90 0.90 0.90 CALCIUM mg/dL 9.0 9.2 9.1 No results found for: PROCALCIT CULTURES: Results for orders placed or performed during the hospital encounter of 03/09/21 Culture, Tissue with Gram Stain (Aerobic) Collection Time: 03/09/21 3:18 PM Specimen: Abdomen; Tissue - Culture growth No growth at 2 days Gram Stain Result No polymorphonuclear leukocytes seen Gram Stain Result No organisms seen Culture, Anaerobe Collection Time: 03/09/21 3:32 PM Specimen: Abdomen; Swab - Culture growth Anaerobic culture in progress CULTURE SUMMARY: Abdominal wound tissue aerobic culture on 03/09, no polymorphonuclear leukocytes , no organisms, no growth at 2 days Abdominal wound tissue anaerobic culture 03/09, in progress SEROLOGIES: NA IMAGING NA PHYSICAL EXAMINATION: Vitals: 03/11/21 0845 BP: Pulse: 72 Resp: 18 Temp: TempSrc: SpO2: 98% Weight: Height: Temp (24hrs), Av.7 C (98.1 F), Min:36.6 C (97.9 F), Max:36.9 C (98 .5 F) General: alert, appears stated age, cooperative Head: Normocephalic, atraumatic Nose and throat: unremarkable Neck: no adenopathy Chest: clear to auscultation bilaterally CV: regular rhythm without murmur, gallop or rub Abdomen: Soft, nontender, no distention, wound VAC in place with good seal Extremities: normal, no edema Skin: color normal, no rash Neurological: alert, oriented, thought content appropriate PROBLEM LIST: Principal Problem: Wound infection after surgery Active Problems: Type II diabetes mellitus (HCC) 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 Abdominal chronic nonhealing wound s/p irrigation and debridement in addition to resection of a chronically infected wound with placement of wound VAC, 03/10. Patient was on oral doxycycline for the last 2 weeks for surgery, this might decrease the sensitivity of cultures given recent antibiotic use 2. History of infected gastric electric stimulus s/p removal in May 2020 wi th 8 weeks of long-term IV antibiotics 3. Gastroparesis RECOMMENDATIONS Continue to hold off starting antibiotics for now. Follow surgical cultures and sensitivities and see if anything grows. Thank you for including infectious disease team in the care of your patient. Ple ase reach out with any further questions. Will continue to follow along with you . All findings discussed with attending physician, Dr. Jimenez with further recomme ndations to follow. Jaimie Fleming MD Internal Medicine - PGY II [phone] Electronically signed by Jaimie Fleming MD 03/11/2021 9:23 AM I saw and examined the patient with Dr Jaimie Fleming. I have reviewed and agree with the history, exam, assessment and plan as documented in the resident's note . I have edited as appropriate to reflect my findings. 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 I read and agree with Dr. Tejada's note below. I saw and examined Ms. Irizarry Tuesday afternoon. She was sitting up on her bed. She appeared her normal self and was not in distress. She had nausea b ut was tolerating a po intake and was not having vomiting, fevers, or chills. Over the last 24 hrs, she had 0.68 L of recorded po intake. Her urine output was poorly recorded. The WoundVAC put out 50 mL. Her blood work showed that her electrolytes are normal and her creatinine is 0.9 . Her liver enzymes show a normal alkaline phosphatase, a high ALT of 47, a high A ST of 278, and a normal total bilirubin. Her CBC shows a normal WBC, a hemoglobin of 12.8, and a platelet count of 175. No cultures are positive yet. Setting her up for discharge with a woundVAC. I appreciate ID's thoughts. Lenin Wall MD [facility] Day: 2 Date: 03/11/21 Subjective: No acute events overnight. Wound vac in place with good seal. Having trouble wit h sleeping overnight. No nausea or emesis. Pain well controlled. Eager to get ho me. Objective: Patient Vitals for the past 4 hrs: BP Pulse Resp SpO2 03/11/21 1104 (!) 150/78 67 18 94 % 03/11/21 1032 79 97 % 03/11/21 0845 72 18 98 % Intake/Output Summary (Last 24 hours) at 03/11/2021 1135 Last data filed at 03/11/2021 0900 Gross per 24 hour Intake 700 ml Output 50 ml Net 650 ml Results for orders placed or performed during the hospital encounter of 03/09/21 (from the past 24 hour(s)) GLUCOSE POC Result Value Ref Range Glucose POC 159 (H) 70 - 100 mg/dL GLUCOSE POC Result Value Ref Range Glucose POC 116 (H) 70 - 100 mg/dL GLUCOSE POC Result Value Ref Range Glucose POC 137 (H) 70 - 100 mg/dL Comprehensive Metabolic Panel Result Value Ref Range Sodium 139 136 - 145 mEq/L Potassium 3.8 3.4 - 5.1 mEq/L Chloride 106 98 - 107 mEq/L Carbon Dioxide 25 20 - 31 mEq/L Anion Gap 8 5 - 17 mmol/L Anion Gap 8 mmol/L Calcium 9.0 8.3 - 10.6 mg/dL Glucose 172 (H) 70 - 100 mg/dL Protein Total Serum 7.0 5.7 - 8.2 g/dL Albumin 4.4 3.5 - 5.0 g/dL Alkaline Phosphatase 67 46 - 116 U/L Alanine Aminotransferase 47 (H) 0 - 34 U/L Aspartate Aminotransferase 278 (H) 0 - 34 U/L Bilirubin Total 0.40 0.30 - 1.20 mg/dL Blood Urea Nitrogen 17 9 - 23 mg/dL Creatinine 0.90 0.55 - 1.02 mg/dL eGFR Female AA 82.1 60.0 - 200.0 mL/min/1.73m*2 eGFR Female Non-AA 67.7 60.0 - 200.0 mL/min/1.73m*2 eGFR Male AA 110.6 60.0 - 200.0 mL/min/1.73m*2 eGFR Male Non-AA 91.3 60.0 - 200.0 mL/min/1.73m*2 CBC and Diff (manual diff if necessary) Result Value Ref Range WBC 5.99 4.00 - 11.00 TH/uL RBC 4.11 4.00 - 5.00 mil/uL Hemoglobin 12.8 12.0 - 15.0 g/dL Hematocrit 37 36 - 45 % MCV 91 80 - 99 fL MCH 31 27 - 34 pg MCHC 34 32 - 36 % RDW 12.9 9.0 - 14.5 % Platelet Count 175 140 - 400 Th/uL MPV 10.4 9.4 - 12.3 fL Nucleated RBCs 0 0 - 0 /100 WBC % Neutrophils 67 45 - 78 % % Lymphocytes 25 15 - 47 % % Monocytes 6 0 - 12 % % Eosinophils 1 0 - 7 % % Basophils 1 0 - 2 % % Imm Grans 0 0 - 1 % # Granulocytes 4.01 1.70 - 6.80 TH/uL # Lymphocytes 1.52 1.00 - 3.30 TH/uL # Monocytes 0.34 0.20 - 0.90 TH/uL # Eosinophils 0.07 0.00 - 0.40 TH/uL # Basophils 0.03 0.00 - 0.10 TH/uL Magnesium Result Value Ref Range Magnesium 1.80 1.60 - 2.60 mg/dL Phosphorus Result Value Ref Range Phosphorus 5.2 (H) 2.4 - 5.1 mg/dL GLUCOSE POC Result Value Ref Range Glucose POC 102 (H) 70 - 100 mg/dL Physical Exam: General Appearance: Alert and oriented, cooperative, no acute distress. Resting comfortably. HEENT: Grossly atraumatic, no visible tracheal deviation. Pulmonary: Unlabored respirations, no acute respiratory distress. Cardiovascular: Regular rate and rhythm Abdomen: Soft, no tenderness to palpation, no guarding, no distention, wound va c in place with good seal Neurologic: Cranial nerves grossly intact Extremities: Warm and well perfused Imaging (last 48 hours): No results found. Assessment/Plan: Miller Irizarry is a 45 y.o. female with history a gastric electrical s timulator placed on 02/08/2020 which had an excellent result, lowering her Total Symptom Score from 25/28 to 4/4; however, her GES loosened, twisted, became inf ected, and was removed. Since that time, she has been cured of HCV but has lauren nued to have symptoms of gastroparesis with a TSS of 16/20. She now presents wit h chronic wound which underwent incision and debridement and placement of wound vac on 03/09 to clean up the area to allow for eventual replacement of gastric p acemaker - Pain control: Prn analgesia - Antibiotics: Not indicated per ID - Continue home meds - VTE Ppx: SCD,SQH - IVF: Discontinue as taking in po - Diet: Consistent carb diet - Pending abx narrowing and setting up home health wound vac anticipate discharg e home Staff: Dr. 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 I read and agree with Dr. Tejada's note below. I saw and examined Ms. Irizarry Tuesday morning. She was sitting up in her bed eating lunch. She was not in distress. She was not having nausea, vomiting, fevers, or chills. I reviewed with her what we had done surgically. Over the last 24 hrs, she had 0.24 L of recorded po intake. Her urine output was 2.3 L. The WoundVAC put out 50 mL. Her blood work showed that her electrolytes are normal and her creatinine is 0.9 . Her CBC shows an elevated WBC of 13.33, a hemoglobin of 14, and a platelet count of 220. She seems to be doing well. Will have ID oversee her treatment of infection. Cultures from the OR are still negative. Home as soon as we know what treatments she requires. Lenin Wall MD [facility] Day: 1 Date: 03/10/21 Subjective: No acute events overnight. Pain well controlled. Tolerating a regular diet. Ea wade to get home. Objective: No data found. Intake/Output Summary (Last 24 hours) at 03/10/2021 1532 Last data filed at 03/10/2021 0859 Gross per 24 hour Intake 1955.16 ml Output 2800 ml Net -844.84 ml Results for orders placed or performed during the hospital encounter of 03/09/21 (from the past 24 hour(s)) GLUCOSE POC Result Value Ref Range Glucose POC 109 (H) 70 - 100 mg/dL GLUCOSE POC Result Value Ref Range Glucose POC 133 (H) 70 - 100 mg/dL GLUCOSE POC Result Value Ref Range Glucose POC 211 (H) 70 - 100 mg/dL GLUCOSE POC Result Value Ref Range Glucose POC 186 (H) 70 - 100 mg/dL Basic Metabolic Panel (BMP) - In AM Result Value Ref Range Sodium 137 136 - 145 mEq/L Potassium 4.0 3.4 - 5.1 mEq/L Chloride 105 98 - 107 mEq/L Carbon Dioxide 24 20 - 31 mEq/L Anion Gap 8 5 - 17 mmol/L Calcium 9.2 8.3 - 10.6 mg/dL Glucose 187 (H) 70 - 100 mg/dL Blood Urea Nitrogen 14 9 - 23 mg/dL Creatinine 0.90 0.55 - 1.02 mg/dL eGFR Male Non-AA 91.3 60.0 - 200.0 mL/min/1.73m*2 eGFR Male AA 110.6 60.0 - 200.0 mL/min/1.73m*2 eGFR Female Non-AA 67.7 60.0 - 200.0 mL/min/1.73m*2 eGFR Female AA 82.1 60.0 - 200.0 mL/min/1.73m*2 Magnesium - In AM Result Value Ref Range Magnesium 1.60 1.60 - 2.60 mg/dL Phosphorus - In AM Result Value Ref Range Phosphorus 3.6 2.4 - 5.1 mg/dL Complete Blood Count - In AM Result Value Ref Range WBC 13.33 (H) 4.00 - 11.00 TH/uL RBC 4.46 4.00 - 5.00 mil/uL Hemoglobin 14.0 12.0 - 15.0 g/dL Hematocrit 40 36 - 45 % MCV 91 80 - 99 fL MCH 31 27 - 34 pg MCHC 35 32 - 36 % RDW 12.5 9.0 - 14.5 % Platelet Count 220 140 - 400 Th/uL MPV 10.6 9.4 - 12.3 fL Nucleated RBCs 0 0 - 0 /100 WBC GLUCOSE POC Result Value Ref Range Glucose POC 144 (H) 70 - 100 mg/dL GLUCOSE POC Result Value Ref Range Glucose POC 123 (H) 70 - 100 mg/dL GLUCOSE POC Result Value Ref Range Glucose POC 156 (H) 70 - 100 mg/dL GLUCOSE POC Result Value Ref Range Glucose POC 159 (H) 70 - 100 mg/dL Physical Exam: General Appearance: Alert and oriented, cooperative, no acute distress. Resting comfortably. HEENT: Grossly atraumatic, no visible tracheal deviation. Pulmonary: Unlabored respirations, no acute respiratory distress. Cardiovascular: Regular rate and rhythm Abdomen: Soft, no tenderness to palpation, no guarding, no distention, wound va c in place with good seal Neurologic: Cranial nerves grossly intact Extremities: Warm and well perfused Imaging (last 48 hours): No results found. Assessment/Plan: Miller Irizarry is a 45 y.o. female with history a gastric electrical s timulator placed on 02/08/2020 which had an excellent result, lowering her Total Symptom Score from 25/28 to 4/4; however, her GES loosened, twisted, became inf ected, and was removed. Since that time, she has been cured of HCV but has lauren nued to have symptoms of gastroparesis with a TSS of 16/20. She now presents wit h chronic wound which underwent incision and debridement and placement of wound vac on 03/09 to clean up the area to allow for eventual replacement of gastric p acemaker - Pain control: Prn analgesia - Antibiotics: Given ancef awaiting abx susceptibilities from intraop cultures. - Continue home meds - VTE Ppx: SCD,SQH - IVF: Discontinue as taking in po - Diet: Consistent carb diet - Pending abx narrowing and setting up home health wound vac Staff: Dr. 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 I read and agree with Dr. Tejada's H&P below, which I have altered to reflect my findings. I saw and did a complete H&P on Ms. Irizarry Tuesday afternoon in pre-op. She was sitting up in the stretcher and was not in distress. She is well known to me, having had a gastric electrical stimulator placed on 02/08/2020 which had an excellent result, lowering her Total Symptom Score from 25/28 to 4/4; however, her GES loosened, twisted, became infected, and was removed. Since that time, she has been cured of HCV but has continued to have symptoms of gastroparesis with a TSS of 16/20. I saw her in clinic on 02/11/2021, where she expressed interest in having another GES placed but she had a draining wound. I had her get a CT scan that showed a pocket of fluid deep, so we arranged her surgery today to excise the infected tissue and treat the wound with a WoundVAC to get it healed. We would also repair primarily an incisional hernia if necessary. I mentioned a low mortality of the procedure and complications of infection and recurrence of the hernia. I answered all of her questions. I felt she was given appropriate informed consent. Lenin Wall MD PATIENT NAME: Miller Irizarry DATE: 03/09/2021 AGE: 45 y.o. : 1975 HISTORY OF PRESENT ILLNESS: Ms. Page is a 45 year old woman with presumed diabetic gastroparesis who was referred for consideration of getting a gastric electrical stimulator. From Care Everywhere, I learned that in the spring, she had numerous visits to the ER and her PCP for injuries from falling down her stairs, from lifting a heavy object, and from falling in the mud. She was also losing weight, weighing 240 lbs on 07/30/2017 and 214 lbs on 09/22/2017. She presented for the first time with nausea and vomiting on the September, to the ER, which she said had star mitul about 3 weeks before. 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 Since that time, her symptoms have pro gressed to the point that she is unable to take any food by mouth and she can no t tolerate tube feedings by means of a GJ tube placed by Interventional Radiolog y. She is currently being fed by TPN, I assume at night. She is felt to have dev eloped Diabetic Gastroparesis, even though she has only had Type II DM for 9 yea rs, and a Gastric Emptying Test was normal done on 12/09/2017 in [place], showing 8% of a standard meal being present in her stomach at 4 hrs. A Gastric Emptying Test was attempted at [facility] on 10/23/2018 but she vomited up the standard meal afte r an hour and so the test was not completed. She has failed Reglan, Domperidone, Erythromycin, and Botox injections. Video Visit (10/24/2019): She does not have the Median Arcuate Ligament Syndrome, based on reviewing a CT scan done 09/10/2019. She continues to smoke cigarettes, which I would like her to stop, as it does interfere with her interest in eating . I would also like her to complete a GET and demonstrate that she has gastropar esis. I am very interested in Dr. Morales's thoughts. Video Visit (01/16/2020): Since I last saw her by Video Visit, she had a GET on that showed >27% of a standard meal left in her stomach at 4 hrs, proving that she has gastroparesis. She also visited with Dr. Morales on the 05 of December who felt that if her GET was abnormal that she qualifies for placement of a GES. Thus, I discussed with her how the surgery for placement of the gastric electrical stimulator would go. I showed her a model of a gastric electrical stimulator, so that she knew the size and shape of the device. I mentioned doing the surgery through an upper midline incision. I explained that I would take two gastric wall biopsies to check for cells of Cajal. I also told them that I would do a pyloroplasty to aid in gastric emptying. Finally, we would place two permanent gastric electrodes, do an EGD to confirm that the electrodes were in the stomach wall and not through the wall, and put the gastric electrical stimulator in a pocket on top of her abdominal wall fascia. Once in place, we would check the load impedance of the circuit and, at the end of the case, we would turn on the device. She would stay in the hospital for 4-6 days. Hospital Stay (02/07-): Ms. Irizarry underwent 2 gastric wall biops ies (Normal numbers of cells of Cajal), a pyloroplasty, implantation of a gastri c electrical stimulator and 2 permanent gastric electrodes, repair of an incisio nal hernia, and placement of a feeding jejunostomy, as well as, an EGD done by Adamaris Farooq on 02/08/2020. She experienced nausea and vomiting secondary to poor pain control after the procedure and the acute pain service assisted with nicole ng her pain to a manageable level. She was placed on a ketamine drip, which was discontinued 4 days later. She was transitioned to oral and IV pushes for pain c ont and to only oral meds on the . Her post operative nausea and vomiting were alleviated once her pain was controlled. She was tolerating a soft diet. T he patient was tolerating adequate PO intake, urinating, and ambulating and was discharged on 02/13/2020 on the 5th post-operative day. Clinic Visit (02/27/2020): She has been having urinary symptoms consistent with a UTI. She had a recent culture that showed multiple bacteria, so I stressed piter adler certain she gets a clean catch. Unfortunately, she again had a culture showin g mixed renan. I increased the current used during each electrical pulse to impr ove her TSS. She wanted to take a Probiotic, which I felt was fine. She has HCV and needs treatment, so she will be seen in Hepatology clinic on 04/03/2020. Clinic Visit (03/04/2020): She came back to clinic due to wound issues. After he r clinic appointment last week, she developed suddenly a gush of fluid from her wound. Her neighbor, a home health nurse helped her and talked with me. Since , her wound has been stable. It was being dressed superficially, not packed, a nd changed daily. She has not had fevers or chills. She will continue to treat h er wound with help from her friend. In clinic, her wound looked good. Her urine culture from last week again showed mixed renan. She was still having burning, u rgency, and pain on urinating; she later had a straight cath done at her PCP's o ice and it was no growth. She told me that she is having frequently low blood sugars. Her PCP is overseeing her Diabetic management. Her blood sugars turned o ut to be in good control, having a HbA1C of 6%. Although her TSS was not greatly improved from last week, she is doing slightly better overall. I will not readj ust her GES now but will wait to see how she is doing in a month. Clinic Visit (04/03/2020): Her total symptom score is lower than it had been sug gesting that she is getting benefit from the device. I left the settings the valentino e. We discussed why she might have tenderness over her gastric electrical stimul ator. There is no fluid around it but it may be moving and that movement can led to tenderness. I would not make any changes now. I felt that she needed to make certain that she has regular bowel movements since constipation worsens her sym ptoms. It seems as though she had good bowel movements while on a Probiotic her friend, Nirali, had given her. Thus I feel she should continue to take those as nee ded. In the future, she should be following with Dr. Morales and not with me u nless a surgical issue were to arise. Clinic Visit (04/23/2020): During her visit, I reviewed the CT scan she had done which did not show disruption of the fascial closure, which I had feared, but d id show air in the soft tissue, which I felt is consistent with a wound that is leaking serous fluid. The radiologist called me and pointed out there was an odd finding, which I reviewed. We later obtained a standard flat x-ray that suggests what we were seeing is the coil of the two gastric electrodes, formed by the s timulator spinning, as it must be loose. Due to this finding and because the gas tric electrodes appear to be stretched, I will return her to the OR next Tuesday, to replace the two gastric electrodes, do endoscopy, suture the stimulator to h er abdominal wall fascia more securely, and get a liver biopsy. I will plan to c lose her fascia but I will place a woundVAC, to get her wound to heal. I called her and let her know our plans. Hospital Stay (05/02-): On the 02 of May, I took her to the OR, found the load impedance was the same, explored the pocket, removed the gastric electr ical stimulator, uncoiled the electrodes, excised the capsule, replaced the GES, and closed with a WoundVAC. We found that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 initially spoke with Pernell, and later with Rosa. Both times I requested that the person call me back who was processing this order to find o ut If any additional information/documentation was needed to advance this proce ss, and no returned call. I left [facility] Rep, Agustín Vaughn [phone] a voice mail , and he called back approx 2 hours later advising he was having IT problems and was unable to help. By then, however, I had called and engaged the help of mayurit her [facility] Rep, Eddi Mendoza [phone], who did make contact with [facility], and comm unicated with Viviana Vergara at [facility]. Initially [facility] maintained that the medical rec ords which had been faxed to [facility] on 03/11/21 lacked the script signed by the Sharmin almeida. However, when this principal technical writer confronted Mr. Mendoza that the signed script h ad been faxed to [facility] along with the other medical records which supported the wv ed for NPWT upon discharge, he did check into it further, and eventually confirm ed this evening that Ms. Vergara acknowledged that [facility] had failed to send a reques t for prior auth on this order to [facility] til after 15:00 toda y. In speaking with Romain Morales [phone] with [facility] ( pt gave me her name and phone#), Ms. Morales advised after a number of phone c alls back and forth, that [facility] had actually not received A request from [facility] for prior auth for a home wound vac. At this time it does seem unlikely that prior auth will be granted for a home wo und vac that would allow pt to discharge home over this weekend. Angy follow up o n Tuesday03/16/21. Discussed the above with pt. Referrals: Pending - Request Sent Referral(s): [facility] [place] [phone] Anticipated needs/services for patients discharge: Living Arrangement (pulls from initial assessment) Support System (pulls from initial assessment) Is the prior level of care appropriate and safe? Short term discharge goals (moving to initial assessment) correction discharge goals (moving to initial assessment) Current Services: Home Care Services (flowsheet in initial assessment) Type of Home Care Services (flowsheet in initial assessment that cascades from H ome Care Services, so will show blank if answer was no) Patient's preferred [facility] post-discharge list provided and discussed quality ratin gs: Home Health, Assisted Facility, LTAC Physical Therapy Location: N/A Occupational Therapy Location: N/A Speech Therapy Location: N/A Infusion Therapy Location: N/A Hospice Location: N/A Home Health: [facility] in [place], [place]. Community Resources: Anticipated dDurable Medical Equipment needs for discharge: DME Needed: Other (see comment) (Home wouund vac.) Current DME Recommendations per Therapy: PT: OT: DME Provider name (freetext flowsheet) Referrals: Referral SmartLink Referrals Made (flowsheet documentation) Referral Accepted (will be removed because this is captured in Destination activ ity) Discharge Planning Participants: Patient Pt/Family Agreement w/ discharge plan: Yes Patient's preferred [facility] post-discharge list provided and discussed quality ratin gs: Erica Mccurdy LCSW 03/13/2021 6:17 PM [phone] ER CARE SOCIAL WORKER * Therapy Note - Saray Kelley, PT - 03/13/2021 4:30 PM FOSTER CARE SOCIAL WORKER 03/13/21 [id number] Visit Type Visit Type Treatment PT Visit Info Initial PT Visit On 03/10/21 Patient/Family Reports Pt agrees to try stairs for safety eval PT Received On 03/13/21 Time Calculation Timed Minutes giat 12, ther act 6 Precautions Fall Risk Yes PPE Used Yellow precautions (Level 1 mask worn over level 3 mask, eye protection , and gloves);Patient wearing mask Pain Assessment Pain Score (min c/o pain) Pain Location Abdomen Cognition Overall Cognitive Status WFL Orientation Level Oriented to person;Oriented to place;Oriented to time;Oriented to situation Safety Judgment Good awareness of safety precautions Bed Mobility Supine to Sit Stand by assistance;Verbal cueing required Sit to Supine Stand by assistance;Verbal cueing required Bed Mobility Comments pt instructed in log roll Transfers Sit to Stand Transfers Stand by assistance;Verbal cueing required Stand to Sit Transfers Stand by assistance;Verbal cueing required Gait Gait Distance (Feet) 100 Assistive Device None Gait Level Surface Assistance Independent Stair Management Technique One rail L Stair Management Assistance Stand by;Minimal;Verbal cueing required Number of Stairs 7 Gait Comments Pt needs verbal cues for safety on stairs Balance Standing Dynamic 3 Activity Tolerance Activity Tolerance fair;+ Patient Education Patient Education Pt is instructed in safety w/ gross motor skills Response to education demonstrates understanding *ASSESSMENT Response to Treatment Good Assistance Needed Occasional verbal cues (10-25%) Gait Distance/Assist Goals Gait Distance LTG Goal Status Achieved Gait Distance LTG (ft) 200 ft Gait Assist LTG Independent Stair/Curb Goals Stair/Curb LTG Goal Status Achieved Stair/Curb LTG 4-6 steps;1 handrail;Modified independent Discharge Recommendations PT Plan D/C, goals achieved;Safe to DC home with family support Saray Kelley, PT Physical Therapist Voalte [phone] ER CARE SOCIAL WORKER * Discharge Planning - Erica Mccurdy, CITY SOLICITOR - 03/12/2021 7:01 PM FOSTER CARE SOCIAL WORKER Discharge Planning Interventions General Discharge Note Anticipated discharge disposition: Home with Home Health (Faxed Letter of Medica l Necessity to [facility] late this after noon, and am still awaiting approval for rele ase of home wound vac from [facility]. Above was discussed with pt in room. Will follow up with [facility] in the AM.) Care Progression Plan: Anticipate discharge home with a home wound vac and Aliseg sindhu MILLER. Referrals: Pending - Request Sent Referral(s): [facility] [address] [place] [id number] Anticipated needs/services for patients discharge: Living Arrangement (pulls from initial assessment) Support System (pulls from initial assessment) Is the prior level of care appropriate and safe? Short term discharge goals (moving to initial assessment) oxygen plant operator discharge goals (moving to initial assessment) Current Services: Home Care Services (flowsheet in initial assessment) Type of Home Care Services (flowsheet in initial assessment that cascades from H ome Care Services, so will show blank if answer was no) Patient's preferred [facility] post-discharge list provided and discussed quality ratin gs: Home Health, Assisted Facility, LTAC Physical Therapy Location: N/A Occupational Therapy Location: N/A Speech Therapy Location: N/A Infusion Therapy Location: N/A Hospice Location: N/A [facility]: [facility] Community Resources: Anticipated dDurable Medical Equipment needs for discharge: DME Needed: Current DME Recommendations per Therapy: PT: OT: DME Provider name (freetext flowsheet) Referrals: Referral SmartLink Referrals Made (flowsheet documentation) Referral Accepted (will be removed because this is captured in Destination activ ity) Discharge Planning Participants: Patient Pt/Family Agreement w/ discharge plan: Yes Patient's preferred [facility] post-discharge list provided and discussed quality ratin gs: Erica Mccurdy LCSW 03/12/2021 7:02 PM [phone] ER CARE SOCIAL WORKER * End of Shift Note - Rhea Azevedo RN - 03/12/2021 6:40 PM FOSTER CARE SOCIAL WORKER End of Shift Summary and Plan of Care Patient is alert and oriented, she is on room air. She has the wound vac in plac e. She had a shower today. She received oxycodone prn x 3. She is up ad juana. Angy l continue to monitor. Goals/Plan for Shift Patient/Family stated goal for shift: To go home Nursing goal for shift: Pain control, nausea control, increase ambulation Plan: Administer prn pain meds, monitor wound vac. Goals/Plan for Hospital Stay Patient/Family stated goal for hospital stay: To be able to get up and walk arou or Nursing goal for hospital stay: Safety, pain control, IS Plan: Safety preacutions, control pain with PRN meds, encourage IS ER CARE SOCIAL WORKER * Therapy Note - Saray Kelley, PT - 03/12/2021 10:32 AM FOSTER CARE SOCIAL WORKER 03/12/21 0911 PT Visit Info Attempted but was unable to see patient (date) 03/12/21 Reason patient was not seen Pt declined PT reason not seen - extended comment Pt states that she has not slept well the last 2 nights, needs to try to sleep at this time. Will cont to follow for PT n eeds. Saray Kelley, PT Physical Therapist Voalte [phone] ER CARE SOCIAL WORKER * End of Shift Note - Narciso Zapata RN - 03/12/2021 6:32 AM FOSTER CARE SOCIAL WORKER End of Shift Summary and Plan of Care Pt A&O x4. VSS on RA. Patient having some pain overnight. Treated with PRN oxycodone and PRN dilaudid. Wound vac remains in place, having serosanguinous output. Pt awoke this morning complaining of sudden anxiety. Pt unsure of why it started or what might help. Dr. Dent notified. See new orders. Hydroxyzine given once. Pt UAL, walking halls overnight. See flowsheets for full assessment. Goals/Plan for Shift Patient/Family stated goal for shift: Have less pain and nausea, sleep, walk Nursing goal for shift: Pain control, nausea control, ambulation, allow time for rest Plan: Administer PRN pain meds, encourage ambulation, reassess nausea and treat as needed, cluster cares Goals/Plan for Hospital Stay Patient/Family stated goal for hospital stay: To be able to get up and walk arou nd Nursing goal for hospital stay: Safety, pain control, IS Plan: Safety preacutions, control pain with PRN meds, encourage IS ER CARE SOCIAL WORKER * End of Shift Note - Rossana Mtz RN - 03/11/2021 6:20 PM FOSTER CARE SOCIAL WORKER End of Shift Summary and Plan of Care No acute events this shift. Pain controlled with PRN Oxycodone and Dilaudid. Wou nd vac changed by wound care nurse. Peripheral IV became occluded, vascular acce ss consulted d/t unsuccessful attempts by floor nurses. Adequate oral intake. Ad equate UOP. No BM. Pt reports no further needs at this time. Goals per Patient Condition Skin Integrity Plan Patient skin integrity maintained. See integumentary azucena wsheet for intervention documentation. Goals/Plan for Shift Patient/Family stated goal for shift: Pain control Nursing goal for shift: Pain control, nausea control, ambulation, IS, safety Plan: Control pain and nausea with PRN meds, encourage ambulation, encourage IS, safety precautions, see orders Goals/Plan for Hospital Stay Patient/Family stated goal for hospital stay: To be able to get up and walk arou nd Nursing goal for hospital stay: Safety, pain control, IS Plan: Safety preacutions, control pain with PRN meds, encourage IS ER CARE SOCIAL WORKER * Discharge Planning - Erica Mccurdy LCSW - 03/11/2021 5:02 PM FOSTER CARE SOCIAL WORKER Discharge Planning Interventions General Discharge Note Anticipated discharge disposition: Home with Home Health Care Progression Plan: Anticipate discharge home with a home wound vac and [facility]. Additional discharge planning information: Spoke with Gisell in Intake at [facility] [phone] FAX# [phone] faxed referral to there thisd afternoon. Confirmed that pt is active with [facility] in [facility]. Also spoke with Elysia in the [facility] at [facility] in [place], [place], FAX# [phone] per pt's request, requsting pt contin ue to be seen post discharge with Wound Care Physician there, Dr. Yin Clark . Faxed medical records to there, and confirmed Dr. Clark there will see pt at pt's usual weekly appointment date/time, next Dave 11/22/21 at 14:00. Will follow up with [facility] and primary team in the AM. Referrals: Pending - Request Sent Referral(s): [facility] [address] [place] [phone] Anticipated needs/services for patients discharge: Living Arrangement (pulls from initial assessment) Support System (pulls from initial assessment) Is the prior level of care appropriate and safe? Short term discharge goals (moving to initial assessment) correction discharge goals (moving to initial assessment) Current Services: Home Care Services (flowsheet in initial assessment) Type of Home Care Services (flowsheet in initial assessment that cascades from H ome Care Services, so will show blank if answer was no) Patient's preferred [facility] post-discharge list provided and discussed quality ratin gs: Home Health, Assisted Facility, LTAC Physical Therapy Location: Occupational Therapy Location: Speech Therapy Location: Infusion Therapy Location: Hospice Location: [facility] Resources: Anticipated dDurable Medical Equipment needs for discharge: DME Needed: Current DME Recommendations per Therapy: PT: OT: DME Provider name (freetext flowsheet) Referrals: Referral SmartLink Referrals Made (flowsheet documentation) Referral Accepted (will be removed because this is captured in Destination activ ity) Discharge Planning Participants: Patient Pt/Family Agreement w/ discharge plan: Yes [facility] preferred [facility] post-discharge list provided and discussed quality ratin gs: Erica Mccurdy LCSW 03/11/2021 5:09 PM [phone] ER CARE SOCIAL WORKER * Care Progression Initial Assessment - Erica Mccurdy LCSW - 03/11/2021 4:52 PM FOSTER CARE SOCIAL WORKER Care Progression Initial Assessment Discharge Plan Patients discharge goal: To discharge home with a home wound vac and [facility] at [facility] in [place], [place]. Care Progression Plan: Pt to discharge home with a home wound vac and hh for v ac dressing changes. Order for home wound vac was submitted today electronically via [facility] and hard copy fax to [facility]. Due to fact that pt's only health insuranace is managed ca [facility], [facility], additional documentation may be n eeded stating the medical reasons pt requires a home wound vac. Patient Information Information Obtained: Met with pt in room this afternoon. Primary Caregiver : Significant Other Support Systems: Spouse/significant other (Pt and her former , Elliot Schroeder, live togetehr at the address listed on Face Sheet. Pt is active wit [facility].) Living Arrangements: Spouse/significant other Type of Residence: Private residence with support Current Home Health Services: Yes Type of Home Care Services: Wound care,Assisted Transportation Transportation at Discharge: Medicaid Transportation at Appointments: Spouse Functional Capacity & DME Assistive Devices: None Respiratory Items: Current & Past Services Current Resources Available: Rx Coverage Type of Rx Coverage: Medicaid Past Home Health Agencies: [facility] in [place], [place]. Services Provided: Nursing Financial/Income Information Financial Hardship: Other (Pt has [place] Medicaid only.) Verified that patients primary care physician is James Euceda MD and receive s their medications from [id number] - [place], [place] - [address] [facility] [address] [facility] [facility] [id number] [id number] [place], [place] - [address] [place] [address] [facility] [id number] Erica Mccurdy LCSW 03/11/2021 4:52 PM [phone] ER CARE SOCIAL WORKER * Nutrition Note - Marquis Serra RD - 03/11/2021 4:12 PM FOSTER CARE SOCIAL WORKER Nutrition Assessment [facility] DIAGNOSIS & INTERVENTION: DIAGNOSIS 1 Nutrition Diagnosis 1: NI 5.1 Increased nutrient needs, specify Related To: non healing wound requiring increased protein needs As Evidenced By: Evidenced based guidelines for wound healing Goal: Prevent further unintentional weight loss,Prevent further skin breakdown,P atient to consume >75% of meals/supplements Time Frame: Throughout stay Goal Status: New goal established Intervention/Plan 1a: Continue with current diet and encourage po. Will add Juv en BID to assist with wound healing and CIB with skim milk bid to assist with pr otein and calorie intake. Intervention/Plan 1b: RD will continue to monitor for intake, weight and labs. Malnutrition criteria: Malnutrition Recommendation - Physician Alert Malnutrition Rec to Provider: No Recommendation REASON FOR CONSULT: + screen/ Wound cx Patient: Miller Irizarry Age: 45 y.o. : 1975 PRIMARY CARE PROVIDER: James Euceda MD ATTENDING PHYSICIAN: Lenin Wall MD HISTORY OF PRESENT ILLNESS: Per MD: 45 y.o.female with history agastric electrical stimulator placed on 02/08/2020 which had an excellent result, lowering her Total Symptom Score from 25/28 to 4 /4; however, her GES loosened, twisted, became infected, and was removed. Since that time, she has been cured of HCV but has continued to have symptoms of gastr oparesis with a TSS of 16/20. She now presents with chronic wound which underwen t incision and debridement and placement of wound vac on 03/09 to clean up the a jeannette to allow for eventual replacement of gastric pacemaker. 03/09 S/P IRRIGATIO N AND DEBRIDEMENT, ABDOMEN; resection of chronically infected wound; primary rep air of incisional hernia; placement of WoundVAC FOOD & NUTRITION RELATED HISTORY: Diet Order: Dietary Orders (From admission, onward) Start Ordered 03/09/21 1618 Diet-Consistent Carbohydrate (75 gm) Diet effective now 03/09/21 1617 Energy Intake Total Energy Intake: Per pt her appetite is fair, usuallly eats smaller meals, l ow fat, high protein meals through the day Fluid / Beverage Intake Oral Fluids: 680 ml yesterday Liquid Meal Replacement or Supplement: uses CIB with [employer] milk Food Intake Amount of Food: 100% of meals Type of Food / Meals: 75 gm consistent CHO Meal / Snack Pattern: at home eats every 2 hours for gastroparesis ANTHROPOMETRICS Height: 160 cm (5' 2.99") Weight: 87.8 kg (193 lb 8 oz) Weight Change: 0.78 BMI (Calculated): 34 [place] Body Weight: 52.2 kg (115 lb) % Weight Loss In Weeks: Per pt she has lost ~ 30 lbs after she was started on Am itiza to treat constipation which made her vomit and have diarrhea, Per EMR pt w as 90.3 kg at that time and so has actuallly lost 3.2 kg in 3 months NUTRITION FOCUSED PHYSICAL FINDINGS: Overall Appearance: Adult female in bed Body Language: cooperative Cardiovascular - Pulmonary: Room air; hx of DM, COPD, HTN, HCV, REHANA Digestive System (Mouth to Rectum): hx of gastroparesis, GES placements x 2 with last one removed 05/2020 d/t it becoming disloged, had failed all gastric stimlu lating drugs prior to this, hx of G adn J tube with removal Head and Eyes: WNL Nerves and Cognition: A&O x 4 Skin: no PI; s/p I&D with resection of chronically infected wound; primary repair of incisional hernia; placement of WoundVAC 03/09 MEDS AND LABS REVIEWED: Pertinent Labs:Results for MILLER IRIZARRY ( ) as of 2020 16:16 Ref. Range 03/11/2021 02:17 03/11/2021 02:17 03/11/2021 07:29 03/11/2021 12:25 SODIUM Latest Ref Range: 136 - 145 mEq/L 139 POTASSIUM Latest Ref Range: 3.4 - 5.1 mEq/L 3.8 CHLORIDE Latest Ref Range: 98 - 107 mEq/L 106 CARBON DIOXIDE Latest Ref Range: 20 - 31 mEq/L 25 Anion Gap Latest Units: mmol/L 8 8 Glucose Latest Ref Range: 70 - 100 mg/dL 172 (H) Blood Urea Nitrogen Latest Ref Range: 9 - 23 mg/dL 17 Creatinine Latest Ref Range: 0.55 - 1.02 mg/dL 0.90 eGFR Female AA Latest Ref Range: 60.0 - 200.0 mL/min/1.73m*2 82.1 eGFR Female Non-AA Latest Ref Range: 60.0 - 200.0 mL/min/1.73m*2 67.7 eGFR Male AA Latest Ref Range: 60.0 - 200.0 mL/min/1.73m*2 110.6 eGFR Male Non-AA Latest Ref Range: 60.0 - 200.0 mL/min/1.73m*2 91.3 CALCIUM Latest Ref Range: 8.3 - 10.6 mg/dL 9.0 Magnesium Latest Ref Range: 1.60 - 2.60 mg/dL 1.80 PHOSPHORUS Latest Ref Range: 2.4 - 5.1 mg/dL 5.2 (H) Glucose POC Latest Ref Range: 70 - 100 mg/dL 102 (H) 104 (H) Pertinent Meds: Scheduled Meds: acetaminophen 1,000 mg Oral Q8H atorvastatin 20 mg Oral Nightly docusate sodium 100 mg Oral BID fluticasone furoate-vilanteroL 1 puff Inhalation Daily heparin (porcine) 5,000 Units Subcutaneous Q8H insulin detemir U-100 15 Units Subcutaneous Nightly insulin regular 2-7 Units Subcutaneous 4 times daily before meals and night ly ipratropium-albuteroL 3 mL Inhalation 4x daily lidocaine 0.1-0.3 mL Intradermal Once metoprolol tartrate 25 mg Oral Nightly mirtazapine 30 mg Oral Nightly ondansetron 8 mg Oral Q6H pantoprazole 40 mg Oral BID AC scopolamine 1 patch Transdermal Once [START ON 03/12/2021] scopolamine 1 patch Transdermal Q72H sucralfate 1 g Oral BID AC trazodone 150 mg Oral Nightly Continuous Infusions: PRN Meds:albuterol, albuterol, dextrose 50%, flumazeniL, glucagon OR glucago n, glucose, HYDROmorphone, magnesium sulfate, miconazole nitrate, naloxone, onda nsetron, oxyCODONE, polyethylene glycol, potassium chloride OR potassium bic arb-citric acid OR potassium chloride in water Intake/Output Summary (Last 24 hours) at 03/11/2021 1613 Last data filed at 03/11/2021 1502 Gross per 24 hour Intake 700 ml Output 450 ml Net 250 ml NUTRITION PRESCRIPTION: Estimated Energy Needs Total Energy Estimated Needs: 2078 kcal/d, vs 1830 kcal/d Method for Estimating Needs: MSJ (1.4) vs 35 kcal/kg IBW for non healing sx woun d , now with Wound VAC Estimated Protein Needs Total Protein Estimated Needs: +/=78 gm/day Method for Estimating Needs: 1.5 gm/kg IBW Fluid Needs Total Fluid Estimated Needs: per MD MONITORING/EVALUATION: 1. Food & Nutrition Related Hx: Energy Intake 2. Anthropometrics: Weight change 3. Biochemical: Nutrition related labs 4. Nutrition-focused physical findings: GI function, skin Electronically signed by Marquis Serra 03/11/2021 4:13 PM ER CARE SOCIAL WORKER * Therapy Note - Art Louis Ayala FISHER TERRAPIN - 03/11/2021 10:57 AM FOSTER CARE SOCIAL WORKER 03/11/21 1032 PT Visit Info Patient/Family Reports Seen bedside. Pt up ad-juana in room upon arrival. In goo d spirits and agreeable. PT Received On 03/11/21 Time Calculation Timed Minutes Gait 12, Ther-act: 8 Precautions Fall Risk (Low fall risk) Supplemental Oxygen RA PPE Used Yellow precautions (Level 1 mask worn over level 3 mask, eye protection , and gloves) Other wound vac Pain Assessment Pain Score 8 Pain Type Surgical pain Pain Location Abdomen Pain Orientation Right;Left;Lower;Upper;Mid Patient exhibits Grimacing;Guarding Pain Descriptors Burning;Sharp Pain Frequency Intermittent Vital Signs SpO2 97 % O2 Device None (Room air) Pulse 79 Heart Rate Source Pulse/O2 monitor Cognition Overall Cognitive Status WFL Communication Communication No Limitation Bed Mobility Supine to Sit Modified independent Sit to Supine Modified independent Bed Mobility Comments HOB slightly elevated. Demos fair log roll. Transfers Assistive Device None Sit to Stand Transfers Stand by assistance Stand to Sit Transfers Stand by assistance Gait Gait Distance (Feet) ~170 Assistive Device Other (Comment) (Pushing IV pole. ) Gait Level Surface Assistance Stand by Pattern WFL Stair Management Technique One rail R;Step to pattern;Forwards Stair Management Assistance Stand by Number of Stairs 8 ((4 x 2 trials.)) Gait Comments Pt reports ambulating in the halls several tmes a day indendently. Activity Tolerance Activity Tolerance good Patient Education Patient Education Log Roll technique for bed mobility Response to education verbalizes understanding;needs further review *ASSESSMENT Learning Barriers None Response to Treatment Excellent Problem List Balance;Activity tolerance;Gait;Safety;Stairs;Transfers Gait Distance/Assist Goals Gait Distance LTG Goal Status Goal continues Gait Distance LTG (ft) 200 ft Gait Assist LTG Independent Stair/Curb Goals Stair/Curb LTG Goal Status Partially met Stair/Curb LTG 4-6 steps;1 handrail;Modified independent Plan PT Treatment Interventions Functional transfer training;LE strengthening/ROM;End urance training;Patient/family training;Equipment eval/education;Gait training;B alance activities;Dual tasking activities;Safety training;Progressive Mobility;C urb/stair training PT Frequency 1-2x/wk Discharge Recommendations PT Plan Continued PT;Home PT Plan comments Safe to DC home with family support once medically stable. Juma Ayala PTA Physical Therapist Pot Washer ER CARE SOCIAL WORKER * Therapy Note - Juma Ayala PTA - 03/11/2021 9:47 AM F[employer]ER CARE SOCIAL WORKER 03/11/21 0947 PT Visit Info Attempted but was unable to see patient (date) 03/11/21 Reason patient was not seen With other staff PT reason not seen - extended comment With wound care. Juma Ayala PTA Physical Therapist Pot Was[employer] ER CARE SOCIAL WORKER * End of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 malignancy. Chapincito Victor MD Report Electronically Signed Out LWD:03/11/21 SRINI(PRIMARY CLASS TEACHER) CLINICAL HISTORY/IMPRESSION: Abscess. SPECIMEN LABELED: Abdominal wall [...] 1.0 cm. No gross lesions are identified. Chemical Mixer sections of skin, sinus tract, and abscess are submitted in cassettes [id number]. (PAS) ps1 Professional Component performed by SRINI a [facility] Pathologist located at [facility], [address] [place] [id number] Technical Component performed at [address] [place] [address] , [address] [place] [address] If immunohistochemical stains and or in situ hybridization are cited in this report, the performance characteristics were determined by [facility] in compliance with CLIA'88 regulations. Some of these tests rely on the use of 'analyte specific reagents' and are subject to specific labeling requirements by the FDA. Known positive and negative control tissues demonstrate appropriate staining. Results should be interpreted with caution given the likelihood of false negativity on decalcified specimens. This testing was developed by [facility]. It has not been cleared or approved by the FDA. The FDA has determined that such clearance or approval is not necessary. ###END OF REPORT### Performing Organization Address City/State/ZIP Code P lidya Number MAWD [id number] 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) Incisional hernia, without obstruction or gangrene Type 2 diabetes mellitus with other spe cified complication, with long-term current use of insulin (HCC) Chronic wound infection of abdomen, sub sequent encounter documented in this encounter Admitting Diagnoses Diagnosis Wound infection after surgery Abscess of liver documented in this encounter Administered Medications Action Date Dose Rate Site Medication Order MAR Action 03/09/2021 12:34 PM [employer]IAL WORKER 1,000 mg acetaminophen (TYLENOL) tablet 1,000 mg Given 1,000 mg, Oral, Once, On Tue03/09/21 a t 1215, For 1 dose, Pre-op, Do not exceed 4 GM/DAY of acetaminophen. If 65 or older do not exceed 3 GM/DAY. If chroni c alcoholic do not exceed 2 GM/DAY. 03/16/2021 1:55 PM F[employer] SOCIAL WORKER 1,000 mg acetaminophen (TYLENOL) tablet 1,000 mg Given 1,000 mg, Oral, Every 8 hours, First dose on Tue03/09/21 at 2100, Do not exceed 4 GM/DAY of acetaminophen. If 6 5 or older do not exceed 3 GM/DAY. If chronic alcoholic do not exceed 2 GM/DAY. 1,000 mg Given 03/16/2021 5:24 AM F[employer] SOCIAL WORKER 1,000 mg Given 03/15/2021 9:16 PM F[employer] SOCIAL WORKER albuterol (ACCUNEB) 2.5 mg/3 mL (0.083 %) nebulizer solution 2.5 mg 2.5 mg, Nebulization, Every 4 hours PRN , wheezing, Starting on Tue03/09/21 at 1556 03/15/2021 9:16 PM [employer] WORKER 20 mg atorvastatin (LIPITOR) tablet 20 mg Given 20 mg, Oral, Nightly, First dose on Tue03/09/21 at 2100 20 mg Given 03/14/2021 9:32 PM [employer] SOC[employer] WORKER 20 mg Given 03/13/2021 9:43 PM F[employer] SOCIAL WORKER 03/10/2021 9:41 PM [employer] SOCIAL WORKER 2 g ceFAZolin (ANCEF) syringe 2 g Given 2 g, Intravenous, Every 8 hours, Indications: SKIN AND SOFT TISSUE INFECTION, First dose on Tue03/09/21 a t 2200, Administer IV push over 3 to 5 minutes. 2 g Given 03/10/2021 2:26 PM F[employer] SOCIAL WORKER 2 g Given 03/10/2021 5:34 AM F[employer] SOCIAL WORKER 03/09/2021 12:34 PM F[employer] SOCIAL WORKER 4 mg dexamethaSONE (DECADRON) injection 4 mg Given 4 mg, Intravenous, Once, On Tue 1 at 1215, For 1 dose, Pre-op, NEVER give to a spinal fusion patient (ask about orthopedic joint fusions) DO NOT GIVE to pituitary surgery patients at reques t of Dr. Nowak (without asking surgeon for approval first). It interferes wit h postoperative ACTH test. If ordered fo r patient with active infection, do not administer unless verbally OK'ed by anesthesiologist or surgeon. dextrose (D50W) 50 % injection 25-50 mL 25-50 mL, Intravenous, As needed, low blood sugar, for 24 hours., Starting on Tue03/09/21 at 2043, Give if patient NPO and IV access already available. If no IV access give Glucagon SQ or IM in arm and turn patient on side. For bloo d glucose (BG): Less than 50 mg/dL: Giv e D50W 50 mL. Check BG every 15 minutes and repeat until greater than 80 mg/dL. Less than 70 mg/dL: Give D50W 25 mL. Check BG every 15 minutes and repeat until greater than 80 mg/dL. Less than 70 mg/dL and patient unconscious: Give D50W 50 mL. Call physician for additional orders. Check BG every 15 minutes and repeat until greater than 8 0 mg/dL. Once blood glucose greater dominique n 80 mg/dL, check BG in one hour. Call physician if less than 70 mg/dL. 03/09/2021 4:16 PM F[employer] SOCIAL WORKER 25 mg diphenhydrAMINE (BENADRYL) injection 25 Given mg 25 mg, Intravenous, Once, On 03/09/21 at 1630, For 1 dose 03/16/2021 8:01 AM F[employer] SOCIAL WORKER 100 mg docusate sodium (COLACE) capsule 100 mg Given 100 mg, Oral, 2 times daily, First dose on 03/09/21 at 2100, Hold these medications if patient has had loose stool or diarrhea within previous 24 hours. Swallow capsule whole 100 mg Given 03/15/2021 9:15 PM F[employer] SOCIAL WORKER 100 mg Given 03/15/2021 9:25 AM F[employer] C[employer] SOCIAL WORKER 03/16/2021 5:49 PM F[employer] SOCIAL WORKER 100 mg doxycycline hyclate (VIBRA-TABS) tablet Given 100 mg 100 mg, Oral, 2 times daily with meals, Indications: SKIN AND SOFT TISSUE INFECTION, First dose on Maria A 03/12/21 a t 1130, Give with food to reduce GI upset 100 mg Given 03/16/2021 8:01 AM F[employer] SOCIAL WORKER 100 mg Given 03/15/2021 5:15 PM F[employer]ER C[employer] SOCIAL WORKER 03/14/2021 4:07 PM F[employer] SOCIAL WORKER 1 patch Back fentaNYL (DURAGESIC) 25 mcg/hr patch 1 Patch patch Applied 1 patch, Transdermal, Administer over 7 2 Hours, Every 72 hours, First dose on Sa t 03/14/21 at 1615, Check patient for fentanyl patch daily Hair removal (clipped not shaved) may be necessary. Avoid external heat to the administration site. 03/09/2021 4:01 PM F[employer] SOCIAL WORKER 50 mcg fentaNYL (SUBLIMAZE) injection 25-50 mcg Given 25-50 mcg, Intravenous, Every 5 min PRN , moderate pain (pain score 4-6), severe pain (pain score 7-10), Starting on 03/09/21 at 1556, Start with 25 mcg dose. If pain unimproved or escalating after first dose, may administer in 50 mcg doses. Maximum cumulative dose of all administrations = 200 mcg. flumazeniL (ROMAZICON) injection 0.2 mg 0.2 mg, Intravenous, As needed, benzodiazepine reversal, Starting on Mo n 03/09/21 at 1605, If desired level of consciousness is not obtained, may repeat 0.2 mg IV every minute for a maximum of 4 doses. Call anesthesia STA T if administered. 03/15/2021 8:22 AM F[employer]ER CARE SOCIAL WORKER 1 puff fluticasone furoate-vilanteroL (BREO Given ELLIPTA) 100-25 mcg/actuation inhaler 1 puff 1 puff, Inhalation, Daily, First dose o n 03/10/21 at 0900, Rinse mouth with water after use if patient not on vent. 1 puff Given 03/14/2021 9:32 AM F[employer] SOCIAL WORKER 1 puff Given 03/13/2021 9:53 AM F[employer]ER [employer] SOCIAL WORKER glucagon (GLUCAGEN) injection 1 mg 1 mg, Intramuscular, As needed, low blood sugar, low blood sugar, Starting on Tue03/09/21 at 2042, Give if patien t NPO and no IV access. May give IM or SQ in arm and turn patient on side. Reconstitute powder for injection by adding 1 mL of drop worker-supplied sterile diluent or sterile water for injection to a vial containing 1 unit o f the drug, to provide solutions containing 1 mg of glucagon/mL. Shake vial gently to dissolve. glucagon (GLUCAGEN) injection 1 mg 1 mg, Subcutaneous, As needed, low bloo d sugar, low blood sugar, Starting on Tue03/09/21 at 2042, Give if patient NPO and no IV access. May give IM or SQ in arm and turn patient on side. Reconstitute powder for injection by adding 1 mL of drop worker-supplied sterile diluent or sterile water for injection to a vial containing 1 unit o f the drug, to provide solutions containing 1 mg of glucagon/mL. Shake vial gently to dissolve. glucose chewable tablet 16-32 g 16-32 g, Oral, As needed, low blood sugar, Starting on Tue03/09/21 at 2042 , Give food, drink, or glucose tablets to treat low blood glucose if patient able to eat. For blood glucose (BG): Less than 50 mg/dL: Give 30 g of carbohydrat e (32 g if using glucose tablets). Check BG every 15 minutes and repeat until greater than 80 mg/dL. Less than 70 mg/dL: Give 15 g of carbohydrate (16 g if using glucose tablets). Check BG every 15 minutes and repeat until greater than 80 mg/dL. Less than 70 mg/dL and patient unconscious: BG to be treated with D50W until greater than 80 mg/dL. Once BG greater than 80 mg/dL, give 30 g of carbohydrate (32 g if usin g glucose tablets) if patient awake and able to swallow. Once blood glucose greater than 80 mg/dL, check BG in one hour. Call physician if less than 70 mg/dL. 03/16/2021 1:55 PM F[employer]ER CARE SOCIAL WORKER 5,000 Units Left Arm heparin (porcine) 5,000 unit/mL Given injection 5,000 Units 5,000 Units, Subcutaneous, Every 8 hours, First dose on Tue03/09/21 at 2200 5,000 Units Left Lower Abdomen Given 03/16/2021 5:25 AM F[employer]ER CARE SOCIAL WORKER 5,000 Units Right Arm Given 03/15/2021 9:17 PM F[employer]ER CARE SOCIAL WORKER 03/09/2021 4:40 PM F[employer]ER CARE SOCIAL WORKER 0.5 mg HYDROmorphone (DILAUDID) injection Given 0.25-0.5 mg 0.25-0.5 mg, Intravenous, Every 10 min PRN, breakthrough pain, Indications: in pacu, up to 2 mg IV, Starting on Tue03/09/21 at 1606, Administer at a max rate of 1 mg/min; max dose for IVP is 4 mg. Note: Limit does not apply to patients who may be tolerant to opioid therapy or on continuous IV or PO opiat e therapy. 0.5 mg Given 03/09/2021 4:29 PM F[employer]ER CARE SOCIAL WORKER 0.25 mg Given 03/09/2021 4:18 PM F[employer]ER CARE SOCIAL WORKER 03/11/2021 11:57 PM F[employer]ER CARE SOCIAL WORKER 0.5 mg HYDROmorphone (DILAUDID) injection Given 0.25-0.5 mg 0.25-0.5 mg, Intravenous, Every 2 hours PRN, breakthrough pain, Indications: in pacu, up to 2 mg IV, Starting on Tue03/09/21 at 2045, Administer at a max rate of 1 mg/min; max dose for IVP is 4 mg. Note: Limit does not apply to patients who may be tolerant to opioid therapy or on continuous IV or PO opiat e therapy. 0.5 mg Given 03/11/2021 3:00 PM F[employer]ER CARE SOCIAL WORKER 0.5 mg Given 03/11/2021 9:02 AM F[employer]ER CARE SOCIAL WORKER 03/15/2021 9:30 AM F[employer]ER CARE SOCIAL WORKER 1 mg HYDROmorphone (DILAUDID) injection 1 mg Given 1 mg, Intravenous, Every 3 hours PRN, breakthrough pain, Starting on Tue03/15/21 at 0913, Administer at a max rate of 1 mg/min; max dose for IVP is 4 mg. Note: Limit does not apply to patients who may be tolerant to opioid therapy or on continuous IV or PO opiat e therapy. 03/14/2021 2:18 AM F[employer]ER CARE SOCIAL WORKER 25 mg Left Del toid hydrOXYzine (VISTARIL) injection 25 mg Given 25 mg, Intramuscular, Every 6 hours PRN , anxiety, Starting on Maria A 03/12/21 at 0523, For IM Use Only 25 mg Left Deltoid Given 03/12/2021 5:41 AM F[employer]ER CARE SOCIAL WORKER 03/15/2021 9:18 PM F[employer]ER [employer] SOCIAL WORKER 15 Units Right Ar m insulin detemir U-100 (LEVEMIR) Given injection 15 Units 15 Units, Subcutaneous, Nightly, First dose on 03/09/21 at 2100 15 Units Left Lower Abdomen Given 03/14/2021 9:39 PM F[employer] SOCIAL WORKER 15 Units Right Arm Given 03/13/2021 9:47 PM F[employer]ER CARE SOCIAL WORKER 03/16/2021 8:00 AM F[employer]ER CARE SOCIAL WORKER 2 Units Left Arm insulin regular (HumuLIN R) injection Given 2-7 Units 2-7 Units, Subcutaneous, 4 times daily before meals and nightly, First dose on 03/09/21 at 2100, LEVEL 3 - Give in addition to scheduled mealtime insulin per table DO NOT GIVE for any 2 hours post meal fingerstick blood glucose checks. If pt NPO or on continuous enteral/parenteral nutrition - give wit h scheduled fingerstick blood glucose check - dose per table Glucose (mg/dL) Dose 0-120 0 units 121-150 0 units 151-200 2 units 201-250 3 units 251-300 4 units 301-350 5 units 351-400 6 units >400 7 units Bedtime Admin Instructions: If glucose level is less than 200, do not give any correction dose If glucose level is 200 or greater give correction dose according to sliding scale (see below) and check BG @ 0000 and 0300 LEVEL 3 - Bedtime Only Glucose (mg/dL) Dose 0-199 0 units 200-250 3 units 251-300 4 units 301-350 5 units 351-400 6 units >400 7 units 2 Units Left Arm Given 03/15/2021 5:14 PM FOSTER CARE SOCIAL WORKER 2 Units Right Arm Given 03/13/2021 5:26 PM FOSTER CARE SOCIAL WORKER 03/14/2021 9:32 AM FOSTER CARE SOCIAL WORKER 3 mL ipratropium-albuteroL (DUO-NEB) 0.5-3 Given mg/3 mL nebulizer solution 3 mL 3 mL, Inhalation, 4 times daily, First dose on Tue03/09/21 at 1700 3 mL Given 03/13/2021 8:50 PM F[employer]ER CARE SOCIAL WORKER 3 mL Given 03/13/2021 12:25 PM F[employer]ER CARE SOCIAL WORKER ipratropium-albuteroL (DUO-NEB) 0.5-3 mg/3 mL nebulizer solution 3 mL 3 mL, Inhalation, Every 4 hours PRN, wheezing, shortness of air, Starting on Tue03/15/21 at 1345 03/09/2021 5:45 PM F[employer]ER CARE SOCIAL WORKER 50 mL/hr 50 mL/hr lactated ringers infusion New Bag 50 mL/hr, Intravenous, Continuous, Starting on Tue03/09/21 at 1215, For 4 8 hours New Bag 03/09/2021 2:28 PM F[employer]ER CARE SOCIAL WORKER lidocaine (GLYDO) 2 % jelly 1 application 1 application, Topical, Daily, First dose on Tue03/13/21 at 2000, For 30 days magnesium sulfate IVPB 2 gram (premix) 2 g, Intravenous, at 25 mL/hr, As needed, standard electrolyte replacement, Starting on Tue03/09/21 a t 1617, Replace in addition to any scheduled magnesium doses. Administer 2 grams over 2 hours for magnesium level less than or equal to 1.4 mg/dL. Repeat magnesium level in AM. Administer only if serum creatinine is less than 2 within the previous 48 hours and sustained urine output is greater than 20 mL/hr for 6 hours (if able to monitor). 03/10/2021 5:24 AM FOSTER CARE SOCIAL WORKER 2 g 25 mL/hr magnesium sulfate IVPB 2 gram (premix) New Bag 2 g, Intravenous, at 25 mL/hr, Once, On Tue03/10/21 at 0500, For 1 dose 03/15/2021 9:15 PM F[employer]ER CARE SOCIAL WORKER 25 mg metoprolol tartrate (LOPRESSOR) tablet Given 25 mg 25 mg, Oral, Nightly, First dose on Tue03/09/21 at 2100, Hold if HR < 60 or SB P < 110. 25 mg Given 03/14/2021 9:33 PM F[employer]ER CARE SOCIAL WORKER 25 mg Given 03/13/2021 9:55 PM F[employer]ER CARE SOCIAL WORKER miconazole nitrate (ALOE VESTA) 2 % ointment Topical, 3 times daily PRN, perineal or skin fold redness, Starting on Tue03/09/21 at 1617, Consult wound care if no improvement within 3 days. 03/15/2021 9:16 PM F[employer]ER CARE SOCIAL WORKER 30 mg mirtazapine (REMERON) tablet 30 mg Given 30 mg, Oral, Nightly, Indications: ann r depressive disorder, First dose on Tue03/09/21 at 2145 30 mg Given 03/14/2021 9:33 PM F[employer]ER CARE SOCIAL WORKER 30 mg Given 03/13/2021 9:55 PM F[employer]ER CARE SOCIAL WORKER naloxone (NARCAN) injection 0.08 mg 0.08 mg, Intravenous, As needed, opioid reversal, respiratory depression, Starting on Tue03/09/21 at 1605, FOR RESPIRATORY RATE < 9/MIN: dilute 1 mL (0.4 mg) naloxone with 9 mL NS (total 1 0 mL) to make a 0.04 mg/mL dilution. Give 2 mL (0.08 mg) of dilution every 2 minutes until respiratory rate is greater than 12/minute and/or drowsines s abates. STOP INFUSION. Caution: patient may experience a relapse of sedation within 1 to 2 hours. Call anesthesia and primary care physician STAT. Initiate Rapid Response Team The patien t may experience relapse within 1 to 2 hours. IF PATIENT IS APNEIC: give naloxone 1 mL (0.4 mg) every 2 minutes until respiratory rate is greater than 12/minute and initiate Rapid Reponse Team. Place oxygen face mask, FiO2 100 % STAT if naloxone is administered. 03/11/2021 7:34 AM F[employer]ER CARE SOCIAL WORKER 4 mg ondansetron (ZOFRAN) injection 4 mg Given 4 mg, Intravenous, Every 6 hours PRN, nausea/vomiting (3rd line), Starting on Tue03/09/21 at 1617 03/16/2021 5:49 PM F[employer]ER C[employer] SOCIAL WORKER 8 mg ondansetron (ZOFRAN-ODT) disintegrating Given tablet 8 mg 8 mg, Oral, Every 6 hours, First dose o n Tue03/09/21 at 1700, Do not remove fro m blister until needed. Peel backing off the blister, do not push tablet through . For ORAL administration, using dry hands place tablet on tongue and allow to dissolve. Swallow with saliva. Fo r NG/OG administration, dissolve tablet i n small amount of water immediately upon removal from package and administer immediately via syringe through feeding tube. 8 mg Given 03/16/2021 11:02 AM F[employer]ER CARE SOCIAL WORKER 8 mg Given 03/16/2021 5:25 AM F[employer]ER CARE SOCIAL WORKER 03/16/2021 8:06 PM F[employer]ER CARE SOCIAL WORKER 10 mg oxyCODONE (ROXICODONE) immediate release Given tablet 5-10 mg 5-10 mg, Oral, Every 4 hours PRN, moderate pain (pain score 4-6), Startin g on Tue03/09/21 at 1617 10 mg Given 03/16/2021 11:02 AM F[employer]ER CARE SOCIAL WORKER 10 mg Given 03/16/2021 5:25 AM F[employer]ER CARE SOCIAL WORKER 03/16/2021 5:49 PM F[employer]ER CARE SOCIAL WORKER 40 mg pantoprazole (PROTONIX) EC tablet 40 mg Given 40 mg, Oral, 2 times daily before meals , First dose on Tue03/09/21 at 1700, DO NOT CRUSH OR CHEW. 40 mg Given 03/16/2021 6:05 AM F[employer]ER CARE SOCIAL WORKER 40 mg Given 03/15/2021 5:14 PM F[employer]ER CARE SOCIAL WORKER 03/14/2021 9:39 PM F[employer]ER CARE SOCIAL WORKER 17 g polyethylene glycol (GLYCOLAX) packet 17 Given g 17 g, Oral, Daily PRN, constipation, Starting on Tue03/11/21 at 1140 17 g Given 03/13/2021 9:55 PM F[employer]ER CARE SOCIAL WORKER 17 g Given 03/11/2021 12:20 PM F[employer]ER CARE SOCIAL WORKER potassium bicarb-citric acid (EFFER-K) effervescent tablet 20 mEq 20 mEq, Oral, As needed, standard electrolyte replacement, Starting on Mo n 03/09/21 at 1617, Administer if unable to swallow potassium tablets. Replace i n addition to any scheduled potassium doses. Administer 20 mEq every hour x 2 doses (total dose = 40 mEq) for potassium level 3.0 to 3.4 mg/dL. Repea t potassium level in AM. Administer 20 mE q every hour x 3 doses (total dose = 60 mEq) for potassium level less than or equal to 2.9. Repeat potassium level 4 hours after last oral dose administered . Administer only if serum creatinine is less than 2 within the previous 48 hour s and sustained urine output is greater than 20 mL/hr for 6 hours (if able to monitor). Completely dissolve tablet in 3 to 4 ounces (90-120 mL) of cold juice or water before administering. For flui d restricted patients, a smaller volume may be used to dilute (e.g. 15-30 mL). potassium chloride (KLOR-CON) CR tablet 20 mEq 20 mEq, Oral, As needed, standard electrolyte replacement, Starting on Mo n 03/09/21 at 1617, Replace in addition t o any scheduled potassium doses. Administer 20 mEq every hour x 2 doses (total dose = 40 mEq) for potassium level 3.0 to 3.4 mg/dL. Repeat potassiu m level in AM. Administer 20 mEq every hour x 3 doses (total dose = 60 mEq) fo r potassium level less than or equal to 2.9. Repeat potassium level 4 hours after last oral dose administered. Administer only if serum creatinine is less than 2 within the previous 48 hour s and sustained urine output is greater than 20 mL/hr for 6 hours (if able to monitor). DO NOT CRUSH OR CHEW. potassium chloride 20 mEq in 100 mL IVP B 20 mEq, Intravenous, Administer over 2 Hours, As needed, standard electrolyte replacement, Starting on 03/09/21 a t 1617, Administer if unable to take oral potassium. Replace in addition to any scheduled potassium doses. Administer 20 mEq x 2 doses (total dose = 40 mEq) for potassium level 3.0 to 3.4 mg/dL. Repeat potassium level in AM. Administe r 20 mEq x 3 doses (total dose = 60 mEq) for potassium level less than or equal to 2.9. Repeat potassium level 2 hours after last infusion complete. Administer only if serum creatinine is less than 2 within the previous 48 hour s and sustained urine output is greater than 20 mL/hr for 6 hours (if able to monitor). Potassium chloride should be infused at a rate of 10 mEq/hr through a peripheral line, or at a rate of 20 mEq/hr through a central line. 03/09/2021 4:17 PM F[employer]ER CARE SOCIAL WORKER 5 mg prochlorperazine (COMPAZINE) injection Given 5-10 mg 5-10 mg, Intravenous, Every 4 hours PRN , nausea/vomiting (1st line), Starting on Tue03/09/21 at 1556, May repeat 5 mg dose x 1 after 30 minutes if first dose ineffective. Do not exceed a total dose of 40 mg within a 24 hour period. Rate of administration should not exceed 5 mg/minute. 03/15/2021 9:26 AM F[employer]ER CARE SOCIAL WORKER 1 patch Behind R ight Ear scopolamine (TRANSDERM-SCOP) 1 mg over 3 Patch days 1 patch Applied 1 patch, Transdermal, Administer over 3 Days, Every 72 hours, First dose on Maria A 03/12/21 at 0900, Place behind ear. Remove patch prior to MRI. Avoid cuttin g patch. 1 patch Behind Left Ear Patch Applied 03/12/2021 9:00 AM [employer] 03/16/2021 6:22 PM [employer] WORKER 1 g sucralfate (CARAFATE) tablet 1 g Given 1 g, Oral, 2 times daily before meals, First dose on 03/09/21 at 1700, Do not give within 30 minutes of acid reducing agents. Separate from other medications by 2 hours. Take on empty stomach 1 g Given 03/16/2021 6:05 AM [employer] WORKER 1 g Given 03/15/2021 6:25 PM [employer] WORKER 03/15/2021 9:16 PM [employer]ER 150 mg trazodone (DESYREL) tablet 150 mg Given 150 mg, Oral, Nightly, First dose on Mo n 03/09/21 at 2100 150 mg Given 03/14/2021 9:33 PM [employer] WORKER 150 mg Given 03/13/2021 9:43 PM [employer] WORKER documented in this encounter Active and Recently Administered Medications Times are shown in [employer]. 03/15/2021 03/16/2021 Medication Order 03/14/2021 0554 (Given - Provider: Laura Meza RN)1424 (Given - Provider: Rossana Mtz RN)2115 (Given - Provider: Erika Rowe, SHASTA) 0524 (Given - Provider: Laura Meza RN)1355 (Given - Provider: Rossana Mtz RN) acetaminophen (TYLENOL) tablet 1,000 mg 0553 (Given - 1,000 mg, Oral, Every 8 hours, First Provider: Colt Cruz dose on Tue03/09/21 at 2100, Do not SHASTA Meza)1347 exceed 4 GM/DAY of acetaminophen. If 65 (Given - Pr ovider: or older do not exceed 3 GM/DAY. If oRssana Mtz, chronic alcoholic do not exceed 2 RN)2133 (Given - GM/DAY. Provider: Laura Meza RN) 2115 (Given - Provider: Erika Rowe, SHASTA) atorvastatin (LIPITOR) tablet 20 mg 2131 (Given - 20 mg, Oral, Nightly, First dose on Tue Provider: Naomi Cruz 03/09/21 at 2100 SHASTA Meza) 0925 (Given - Provider: Cory Boyd)2115 (Given - Provider: Erika Rowe RN) 0801 (Given - Provider: Cory Boyd) docusate sodium (COLACE) capsule 100 mg 0834 (Given - 100 mg, Oral, 2 times daily, First dose Provider: Ashvin dc on 03/09/21 at 2100, Hold these SHASTA Mtz)2133 medications if patient has had loose (Given - Provid er: stool or diarrhea within previous 24 Stanfordshiela Meza RN) hours. Swallow capsule whole 0925 (Given - Provider: Cory Boyd)1715 (Given - Provider: Rossana Mtz RN)1830 (Hold this dose - Provider: Rossana Mtz RN - Reason: Given previously) 0801 (Given - Provider: Cory Boyd)1000 (Hold this dose - Provider: Rossana Mtz RN - Reason: Given previously)1749 (Given - Provider: Rossana Mtz RN) doxycycline hyclate (VIBRA-TABS) tablet 0834 (Given - 100 mg Provider: Rossana 100 mg, Oral, 2 times daily with meals, SHASTA Mtz)10 00 (Hold Indications: SKIN AND SOFT TISSUE this dose - INFECTION, First dose on Maria A 03/12/21 at Provider: Javad singletary 1130, Give with food to reduce GI upset SHASTA Mtz - Reason: Given previously)1730 (Given - Provider: Rossana Mtz RN) fentaNYL (DURAGESIC) 25 mcg/hr patch 1 1607 (Patch A pplied patch - Provider: Rossana Angeles patch, Transdermal, Administer over 72 SHASTA Mtz) Hours, Every 72 hours, First dose on Sa t 03/14/21 at 1615, Check patient for fentanyl patch daily Hair removal (clipped not shaved) may be necessary. Avoid external heat to the administration site. 0822 (Given - Provider: Nina ross, ORDER DESK CALLER - Comment: pt rinsed mouth) 0900 (Hold this dose - Provider: Jodie Mariee, ORDER DESK CALLER - Reason: Other) fluticasone furoate-vilanteroL (BREO 0932 (Given - ELLIPTA) 100-25 mcg/actuation inhaler 1 Provider: Ra heather Yeh RRT) 1 puff, Inhalation, Daily, First dose o n Tue03/10/21 at 0900, Rinse mouth with water after use if patient not on vent. 0554 (Given - Provider: Laura Meza RN)1424 (Given - Provider: Rossana Mtz RN)2117 (Given - Provider: Erika Rowe RN) 0525 (Given - Provider: Laura Meza RN)1355 (Given - Provider: Rossana Mtz RN) heparin (porcine) 5,000 unit/mL 0553 (Given - injection 5,000 Units Provider: Laura Cruz 5,000 Units, Subcutaneous, Every 8 SHASTA Meza)1347 hours, First dose on Tue03/09/21 at (Given - Provid er: 2200 Rossana Mtz RN)2133 (Given - Provider: Laura Meza RN) 2118 (Given - Provider: Erika Rowe RN) insulin detemir U-100 (LEVEMIR) 2138 (Given - injection 15 Units Provider: Laura Cruz 15 Units, Subcutaneous, Nightly, First SHASTA Meza) dose on Tue03/09/21 at 2100 0730 (Not Given - Provider: Rossana donis RN - Reason: Order parameters not met)1130 (Not Given - Provider: Rossana Mtz RN - Reason: Order parameters not met)1714 (Given - Provider: Rossana Mtz RN)2100 (Not Given - Provider: Erika Rowe RN - Reason: Order parameters not met) 0800 (Given - Provider: Cory Boyd N)1130 (Not Given - Provider: Rossana Mtz RN - Reason: Order parameters not met)1700 (Not Given - Provider: Rossana Mtz RN - Reason: Order parameters not met) insulin regular (HumuLIN R) injection 0730 (Not Give n - 2-7 Units Provider: Rossana 2-7 Units, Subcutaneous, 4 times daily SHASTA Mtz - R radha: before meals and nightly, First dose on Order parame ters not Tue03/09/21 at 2100, LEVEL 3 - Give in met)1130 (No t Given addition to scheduled mealtime insulin - Provider: Javad singletary per table DO NOT GIVE for any 2 hours SHASTA Mtz - R radha: post meal fingerstick blood glucose Order parameters not checks. If pt NPO or on continuous met)1700 (Not Giv en enteral/parenteral nutrition - give with - Provider: Rossana scheduled fingerstick blood glucose SHASTA Mtz - Reas on: check - dose per table Glucose (mg/dL) Order parame ters not Dose 0-120 met)2100 (Not Given 0 units 121-150 - Provider: Laura Cruz 0 units 151-200 SHASTA Meza - Reason: 2 units 201-250 3 Order parame ters not units 251-300 4 met) units 301-350 5 units 351-400 6 units >400 7 units Bedtime Admin Instructions: If glucose level is less than 200, do not give any correction dose If glucose level is 200 or greater give correction dose according to sliding scale (see below) and check BG @ 0000 and 0300 LEVEL 3 - Bedtime Only Glucose (mg/dL) Dose 0-199 0 units 200-250 3 units 251-300 4 units 301-350 5 units 351-400 6 units >400 7 units 0822 (Not Given - Provider: Nina smallwood RRT - Reason: Patient/family refused)1200 (Not Given - Provider: Nina Otto RRT - Reason: Patient/family refused) ipratropium-albuteroL (DUO-NEB) 0.5-3 0932 (Given - mg/3 mL nebulizer solution 3 mL Provider: Yin (CANCELED) RUFINA Yeh)1200 3 mL, Inhalation, 4 times daily, First (Not Given - dose on Tue03/09/21 at 1700 Provider: Yin Yeh RRT - Reason: Patient/family refused)1600 (Not Given - Provider: Yin Yeh RRT - Reason: Patient/family refused)1999 (Not Given - Provider: Lj Lebron RRT - Reason: Patient not available) 0900 (Not Given - Provider: Rossana donis RN - Reason: Patient/family refused) 0900 (Not Given - Provider: Rossana donis RN - Reason: Patient/family refused) lidocaine (GLYDO) 2 % jelly 1 0900 (Not Given - application Provider: Rossana 1 application, Topical, Daily, First SHASTA Mtz - Jeannette son: dose on Tue03/13/21 at 2000, For 30 Patient/family days refused) lidocaine (pf) (XYLOCAINE-MPF) 10 mg/mL (1 %) injection 0.1-0.3 mL 0.1-0.3 mL, Intradermal, Once, On Tue03/09/21 at 1215, For 1 dose, Prior to / for IV insertion. 2114 (Given - Provider: Erika Rowe RN) metoprolol tartrate (LOPRESSOR) tablet 2132 (Given - 25 mg Provider: Laura Cruz 25 mg, Oral, Nightly, First dose on Tue SHASTA Meza) 03/09/21 at 2100, Hold if HR < 60 or SB P < 110. 2115 (Given - Provider: Erika Rowe RN) mirtazapine (REMERON) tablet 30 mg 2132 (Given - 30 mg, Oral, Nightly, Indications: major Provider: Ashish Cruz depressive disorder, First dose on Tue SHASTA Meza) 03/09/21 at 2145 0554 (Given - Provider: Laura Meza RN)1055 (Given - Provider: Rossana Mtz RN)1714 (Given - Provider: Rossana Mtz RN)2115 (Given - Provider: Erika Rowe RN)2300 (Hold this dose - Provider: Erika oRwe RN - Reason: Given previously) 0525 (Given - Provider: Laura Meza RN)1102 (Given - Provider: Rossana Mtz RN)1749 (Given - Provider: Rossana Mtz RN) ondansetron (ZOFRAN-ODT) disintegrating 0553 (Given - tablet 8 mg Provider: Laura W 8 mg, Oral, Every 6 hours, First dose on SHASTA Meza) 1143 03/09/21 at 1700, Do not remove from (Given - Pr ovider: blister until needed. Peel backing off Dilma lange, the blister, do not push tablet through. RN)1605 (Gi mani - For ORAL administration, using dry Provider: Rossana hernandez place tablet on tongue and allow SHASTA Mtz)213 3 to dissolve. Swallow with saliva. For (Given - Pr ovider: NG/OG administration, dissolve tablet in Laura woodall, small amount of water immediately upon RN)2300 (Hold this removal from package and administer dose - Provider: immediately via syringe through feeding Laura peacock RN tube. - Reason: Given previously) 0554 (Given - Provider: Laura Meza RN)0730 (Hold this dose - Provider: Laura Meza RN - Reason: Given previously)1714 (Given - Provider: oRssana Mtz RN) 0605 (Given - Provider: Laura Meza RN)0730 (Hold this dose - Provider: Laura Meza RN - Reason: Given previously)1749 (Given - Provider: Rossana Mtz RN) pantoprazole (PROTONIX) EC tablet 40 mg 0651 (Given - 40 mg, Oral, 2 times daily before meals, Provider: Ashish Cruz First dose on Tue03/09/21 at 1700, DO Derrick RN)16 05 NOT CRUSH OR CHEW. (Given - Provider: Rossana Mtz RN) 0859 (Patch Removed - Provider: Rossana Mtz RN)0926 (Patch Applied - Provider: Rossana Mtz RN) scopolamine (TRANSDERM-SCOP) 1 mg over 3 days 1 patch 1 patch, Transdermal, Administer over 3 Days, Every 72 hours, First dose on Tue03/12/21 at 0900, Place behind ear. Remove patch prior to MRI. Avoid cuttin g patch. 0554 (Given - Provider: Laura Meza RN)0730 (Hold this dose - Provider: Laura Meza RN - Reason: Given previously)1825 (Given - Provider: Rossana Mtz RN) 0605 (Given - Provider: Laura Meza RN)0730 (Hold this dose - Provider: Laura Meza RN - Reason: Given previously)1822 (Given - Provider: Rossana Mtz RN) sucralfate (CARAFATE) tablet 1 g 0651 (Given - 1 g, Oral, 2 times daily before meals, Provider: Maggie rCuz First dose on Tue03/09/21 at 1700, Do Derrick RN)17 30 not give within 30 minutes of acid (Given - Provider : reducing agents. Separate from other Rossana Mtz, RN) medications by 2 hours. Take on empty stomach 2115 (Given - Provider: Erika Rowe RN) trazodone (DESYREL) tablet 150 mg 2132 (Given - 150 mg, Oral, Nightly, First dose on Tue Provider: Ashish Cruz 03/09/21 at 2100 SHASTA Meza) 03/15/2021 03/16/2021 Medication Order 03/14/2021 albuterol (ACCUNEB) 2.5 mg/3 mL (0.083 %) nebulizer solution 2.5 mg 2.5 mg, Nebulization, Every 4 hours PRN , wheezing, Starting on Tue03/09/21 at 1556 albuterol (PROAIR/PROVENTIL/VENTOLIN) HFA inhaler 2 puff 2 puff, Inhalation, Every 6 hours PRN, wheezing, Starting on Tue03/09/21 at 1637 dextrose (D50W) 50 % injection 25-50 mL 25-50 mL, Intravenous, As needed, low blood sugar, for 24 hours., Starting on Tue03/09/21 at 2043, Give if patient NPO and IV access already available. If no IV access give Glucagon SQ or IM in arm and turn patient on side. For bloo d glucose (BG): Less than 50 mg/dL: Giv e D50W 50 mL. Check BG every 15 minutes and repeat until greater than 80 mg/dL. Less than 70 mg/dL: Give D50W 25 mL. Check BG every 15 minutes and repeat until greater than 80 mg/dL. Less than 70 mg/dL and patient unconscious: Give D50W 50 mL. Call physician for additional orders. Check BG every 15 minutes and repeat until greater than 8 0 mg/dL. Once blood glucose greater dominique n 80 mg/dL, check BG in one hour. Call physician if less than 70 mg/dL. flumazeniL (ROMAZICON) injection 0.2 mg 0.2 mg, Intravenous, As needed, benzodiazepine reversal, Starting on Mo n 03/09/21 at 1605, If desired level of consciousness is not obtained, may repeat 0.2 mg IV every minute for a maximum of 4 doses. Call anesthesia STA T if administered. glucagon (GLUCAGEN) injection 1 mg(Linked Group 1) 1 mg, Intramuscular, As needed, low blood sugar, low blood sugar, Starting on Tue03/09/21 at 2042, Give if patien t NPO and no IV access. May give IM or SQ in arm and turn patient on side. Reconstitute powder for injection by adding 1 mL of drop worker-supplied sterile diluent or sterile water for injection to a vial containing 1 unit o f the drug, to provide solutions containing 1 mg of glucagon/mL. Shake vial gently to dissolve. glucagon (GLUCAGEN) injection 1 mg(Linked Group 1) 1 mg, Subcutaneous, As needed, low bloo d sugar, low blood sugar, Starting on Tue03/09/21 at 2042, Give if patient NPO and no IV access. May give IM or SQ in arm and turn patient on side. Reconstitute powder for injection by adding 1 mL of drop worker-supplied sterile diluent or sterile water for injection to a vial containing 1 unit o f the drug, to provide solutions containing 1 mg of glucagon/mL. Shake vial gently to dissolve. glucose chewable tablet 16-32 g 16-32 g, Oral, As needed, low blood sugar, Starting on Tue03/09/21 at 2042 , Give food, drink, or glucose tablets to treat low blood glucose if patient able to eat. For blood glucose (BG): Less than 50 mg/dL: Give 30 g of carbohydrat e (32 g if using glucose tablets). Check BG every 15 minutes and repeat until greater than 80 mg/dL. Less than 70 mg/dL: Give 15 g of carbohydrate (16 g if using glucose tablets). Check BG every 15 minutes and repeat until greater than 80 mg/dL. Less than 70 mg/dL and patient unconscious: BG to be treated with D50W until greater than 80 mg/dL. Once BG greater than 80 mg/dL, give 30 g of carbohydrate (32 g if usin g glucose tablets) if patient awake and able to swallow. Once blood glucose greater than 80 mg/dL, check BG in one hour. Call physician if less than 70 mg/dL. 0930 (Given - Provider: Cory Boyd) HYDROmorphone (DILAUDID) injection 1 mg 1 mg, Intravenous, Every 3 hours PRN, breakthrough pain, Starting on Tue03/15/21 at 0913, Administer at a max rate of 1 mg/min; max dose for IVP is 4 mg. Note: Limit does not apply to patients who may be tolerant to opioid therapy or on continuous IV or PO opiat e therapy. hydrOXYzine (VISTARIL) injection 25 mg 0218 (Given - 25 mg, Intramuscular, Every 6 hours PRN, Provider: Ashish russo, Starting on Maria A 03/12/21 at Derirck, RN) 1479, For IM Use Only ipratropium-albuteroL (DUO-NEB) 0.5-3 mg/3 mL nebulizer solution 3 mL 3 mL, Inhalation, Every 4 hours PRN, wheezing, shortness of air, Starting on 03/15/21 at 1345 magnesium sulfate IVPB 2 gram (premix) 2 g, Intravenous, at 25 mL/hr, As needed, standard electrolyte replacement, Starting on 03/09/21 a t 1617, Replace in addition to any scheduled magnesium doses. Administer 2 grams over 2 hours for magnesium level less than or equal to 1.4 mg/dL. Repeat magnesium level in AM. Administer only if serum creatinine is less than 2 within the previous 48 hours and sustained urine output is greater than 20 mL/hr for 6 hours (if able to monitor). miconazole nitrate (ALOE VESTA) 2 % ointment Topical, 3 times daily PRN, perineal or skin fold redness, Starting on 03/09/21 at 1617, Consult wound care if no improvement within 3 days. naloxone (NARCAN) injection 0.08 mg 0.08 mg, Intravenous, As needed, opioid reversal, respiratory depression, Starting on 03/09/21 at 1605, FOR RESPIRATORY RATE < 9/MIN: dilute 1 mL (0.4 mg) naloxone with 9 mL NS (total 1 0 mL) to make a 0.04 mg/mL dilution. Give 2 mL (0.08 mg) of dilution every 2 minutes until respiratory rate is greater than 12/minute and/or drowsines s abates. STOP INFUSION. Caution: patient may experience a relapse of sedation within 1 to 2 hours. Call anesthesia and primary care physician STAT. Initiate Rapid Response Team The patien t may experience relapse within 1 to 2 hours. IF PATIENT IS APNEIC: give naloxone 1 mL (0.4 mg) every 2 minutes until respiratory rate is greater than 12/minute and initiate Rapid Reponse Team. Place oxygen face mask, FiO2 100 % STAT if naloxone is administered. ondansetron (ZOFRAN) injection 4 mg 4 mg, Intravenous, Every 6 hours PRN, nausea/vomiting (3rd line), Starting on 03/09/21 at 1617 0553 (Given - Provider: Laura Meza RN)1050 (Given - Provider: Rossana Mtz, RN)1825 (Given - Provider: Rossana Mtz, RN)2228 (Given - Provider: Laura Meza RN) 0525 (Given - Provider: Laura Meza, SHASTA)1102 (Given - Provider: Rossana Mtz, SHASTA)2006 (Given - Provider: Laura Meza, SHASTA) oxyCODONE (ROXICODONE) immediate release 0559 (Given - tablet 5-10 mg Provider: Laura Cruz 5-10 mg, Oral, Every 4 hours PRN, SHASTA Meza)1347 moderate pain (pain score 4-6), Starting (Given - Pr ovider: on Tue03/09/21 at 1617 Rossana Mtz RN)1956 (Given - Provider: Laura Meza RN) polyethylene glycol (GLYCOLAX) packet 17 2138 (Given - g Provider: Laura Cruz 17 g, Oral, Daily PRN, constipation, SHASTA Meza) Starting on 03/11/21 at 1140 potassium bicarb-citric acid (EFFER-K) effervescent tablet 20 mEq(Linked Group 2) 20 mEq, Oral, As needed, standard electrolyte replacement, Starting on Mo n 03/09/21 at 1617, Administer if unable to swallow potassium tablets. Replace i n addition to any scheduled potassium doses. Administer 20 mEq every hour x 2 doses (total dose = 40 mEq) for potassium level 3.0 to 3.4 mg/dL. Repea t potassium level in AM. Administer 20 mE q every hour x 3 doses (total dose = 60 mEq) for potassium level less than or equal to 2.9. Repeat potassium level 4 hours after last oral dose administered . Administer only if serum creatinine is less than 2 within the previous 48 hour s and sustained urine output is greater than 20 mL/hr for 6 hours (if able to monitor). Completely dissolve tablet in 3 to 4 ounces (90-120 mL) of cold juice or water before administering. For flui d restricted patients, a smaller volume may be used to dilute (e.g. 15-30 mL). potassium chloride (KLOR-CON) CR tablet 20 mEq(Linked Group 2) 20 mEq, Oral, As needed, standard electrolyte replacement, Starting on 03/09/21 at 1617, Replace in addition t o any scheduled potassium doses. Administer 20 mEq every hour x 2 doses (total dose = 40 mEq) for potassium level 3.0 to 3.4 mg/dL. Repeat potassiu m level in AM. Administer 20 mEq every hour x 3 doses (total dose = 60 mEq) fo r potassium level less than or equal to 2.9. Repeat potassium level 4 hours after last oral dose administered. Administer only if serum creatinine is less than 2 within the previous 48 hour s and sustained urine output is greater than 20 mL/hr for 6 hours (if able to monitor). DO NOT CRUSH OR CHEW. potassium chloride 20 mEq in 100 mL IVPB(Linked Group 2) 20 mEq, Intravenous, Administer over 2 Hours, As needed, standard electrolyte replacement, Starting on Tue03/09/21 a t 1617, Administer if unable to take oral potassium. Replace in addition to any scheduled potassium doses. Administer 20 mEq x 2 doses (total dose = 40 mEq) for potassium level 3.0 to 3.4 mg/dL. Repeat potassium level in AM. Administe r 20 mEq x 3 doses (total dose = 60 mEq) for potassium level less than or equal to 2.9. Repeat potassium level 2 hours after last infusion complete. Administer only if serum creatinine is less than 2 within the previous 48 hour s and sustained urine output is greater than 20 mL/hr for 6 hours (if able to monitor). Potassium chloride should be infused at a rate of 10 mEq/hr through a peripheral line, or at a rate of 20 mEq/hr through a central line. Order Group 1: glucagon (GLUCAGEN) injection 1 mgJump to med 1 mg, Intramuscular, As needed, low blo od sugar, low blood sugar, Starting on Tue03/09/21 at 2042
Give if patient NPO and no IV a ccess. May give IM or SQ in arm and turn patient on side. Reconstitute powder for inje ction by adding 1 mL of drop worker- supplied sterile diluent or sterile water for injection to a via l containing 1 unit of the drug, to provide solutions containing 1 mg of glucagon/mL. Shake v ial gently to dissolve.
Or glucagon (GLUCAGEN) injection 1 mgJump to med 1 mg, Subcutaneous, As needed, low bloo d sugar, low blood sugar, Starting on Tue03/09/21 at 2043
Give if patient NPO and no IV a ccess. May give IM or SQ in arm and turn patient on side. Reconstitute powder for inje ction by adding 1 mL of drop worker- supplied sterile diluent or sterile water for injection to a via l containing 1 unit of the drug, to provide solutions containing 1 mg of glucagon/mL. Shake v ial gently to dissolve.
Group 2: potassium chloride (KLOR-CON) CR tablet 20 mEqJump to med 20 mEq, Oral, As needed, standard elect rolyte replacement, Starting on Tue03/09/21 at 1617
Replace in addition to any sche duled potassium doses. Administer 20 mEq every hour x 2 doses (total dose = 40 mEq) fo r potassium level 3.0 to 3.4 mg/dL. Repeat potassium level in AM. Administer 20 mEq every hour x 3 doses (total dose = 60 mEq) for potassium level less than or equal to 2.9. Repeat potassium level 4 hours after last oral dose administered. Administer only if serum cr eatinine is less than 2 within the previous 48 hours and sustained urine output is greater than 20 mL/hr for 6 hours (if able to monitor). DO NOT CRUSH OR CHEW.
Or potassium bicarb-citric acid (EFFER-K) effervescent tablet 20 mEqJump to med 20 mEq, Oral, As needed, standard elect rolyte replacement, Starting on Tue03/09/21 at 1617
Administer if unable to swallow potassium tablets. Replace in addition to any scheduled potassium doses. Administer 20 mEq every hour x 2 doses (total dose = 40 mEq) for potassium level 3.0 to 3.4 mg/dL. Repea t potassium level in AM. Administer 20 mEq every hour x 3 doses (total dose = 60 mEq) for potas sium level less than or equal to 2.9. Repeat potassium level 4 hours after last oral dose administer ed. Administer only if serum creatinine is less than 2 within the previous 48 hours and sustained urine output is greater than 20 mL/hr for 6 hours (if able to monitor). Completely d issolve tablet in 3 to 4 ounces (90-120 mL) of cold juice or water before administering. For fluid r estricted patients, a smaller volume may be used to dilute (e.g. 15-30 mL).
Or potassium chloride 20 mEq in 100 mL IVP BJump to med 20 mEq, Intravenous, Administer over 2 Hours, As needed, standard electrolyte replacement, Starting on 03/09/21 at 1617
Administer i f unable to take oral potassium. Replace in addition to any scheduled potassium doses. &nb sp;Administer 20 mEq x 2 doses (total dose = 40 mEq) for potassium level 3.0 to 3.4 mg/dL. Repea t potassium level in AM. Administer 20 mEq x 3 doses (total dose = 60 mEq) for potassium lev el less than or equal to 2.9. Repeat potassium level 2 hours after last infusion complete. &nb sp;Administer only if serum creatinine is less than 2 within the previous 48 hours and sustained uri ne output is greater than 20 mL/hr for 6 hours (if able to monitor). Potassium chloride shoul d be infused at a rate of 10 mEq/hr through a peripheral line, or at a rate of 20 mEq/hr through a central line.
documented in this encounter Care Teams Start Date End Date Campus Chaplain Relationship Specialty 10/24/19 James Euceda MD PCP - General [address] [id number] documented as of this encounter
--- OUTSIDE RECORDS SUMMARY | 2021-05-01 12:53 | XMS REPORT | Encounter Summary ---
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 BOLOGNA LACER 1,000 mg Given 03/15/2021 9:16 PM BOLOGNA LACER albuterol (ACCUNEB) 2.5 mg/3 mL (0.083 %) nebulizer solution 2.5 mg 2.5 mg, Nebulization, Every 4 hours PRN , wheezing, Starting on Tue03/09/21 at 1556 03/15/2021 9:16 PM BOLOGNA LACER 20 mg atorvastatin (LIPITOR) tablet 20 mg Given 20 mg, Oral, Nightly, First dose on Tue03/09/21 at 2100 20 mg Given 03/14/2021 9:32 PM BOLOGNA LACER 20 mg Given 03/13/2021 9:43 PM BOLOGNA LACER dextrose (D50W) 50 % injection 25-50 mL [...] physician if less than 70 mg/dL. 03/16/2021 8:01 AM BOLOGNA LACER 100 mg docusate sodium (COLACE) capsule 100 mg Given 100 mg, Oral, 2 times daily, First dose on 03/09/21 at 2100, Hold these medications if patient has had loose stool or diarrhea within previous 24 hours. Swallow capsule whole 100 mg Given 03/15/2021 9:15 PM BOLOGNA LACER 100 mg Given 03/15/2021 9:25 AM BOLOGNA LACER 03/16/2021 5:49 PM BOLOGNA LACER 100 mg doxycycline hyclate (VIBRA-TABS) tablet Given 100 mg 100 mg, Oral, 2 times daily with meals, Indications: SKIN AND SOFT TISSUE INFECTION, First dose on Maria A 03/12/21 a t 1130, Give with food to reduce GI upset 100 mg Given 03/16/2021 8:01 AM BOLOGNA LACER 100 mg Given 03/15/2021 5:15 PM BOLOGNA LACER 03/14/2021 4:07 PM BOLOGNA LACER 1 patch Back fentaNYL (DURAGESIC) 25 mcg/hr patch 1 Patch patch Applied 1 patch, Transdermal, Administer over 7 2 Hours, Every 72 hours, First dose on Sa t 03/14/21 at 1615, Check patient for fentanyl patch daily Hair removal (clipped not shaved) may be necessary. Avoid external heat to the administration site. flumazeniL (ROMAZICON) injection 0.2 mg 0.2 mg, Intravenous, As needed, benzodiazepine reversal, Starting on Mo n 03/09/21 at 1605, If desired level of consciousness is not obtained, may repeat 0.2 mg IV every minute for a maximum of 4 doses. Call anesthesia STA T if administered. 03/15/2021 8:22 AM BOLOGNA LACER 1 puff fluticasone furoate-vilanteroL (BREO Given ELLIPTA) 100-25 mcg/actuation inhaler 1 puff 1 puff, Inhalation, Daily, First dose o n 03/10/21 at 0900, Rinse mouth with water after use if patient not on vent. 1 puff Given 03/14/2021 9:32 AM BOLOGNA LACER 1 puff Given 03/13/2021 9:53 AM BOLOGNA LACER 03/09/2021 1:35 PM BOLOGNA LACER 1,000 mL Operativ e Site gentamicin (GARAMYCIN) 80 mg, polymyxin Given B 500,000 Units in sodium chloride irrigation (NS) 0.9 % 1,000 mL As needed, Starting on Tue03/09/21 at 1335, Intra-op glucagon (GLUCAGEN) injection 1 mg 1 mg, Intramuscular, As needed, low blood sugar, low blood sugar, Starting on Tue03/09/21 at 2043, Give if patien t NPO and no IV access. May give IM or SQ in arm and turn patient on side. Reconstitute powder for injection by adding 1 mL of dental financial coordinator-supplied sterile diluent or sterile water for injection to a vial containing 1 unit o f the drug, to provide solutions containing 1 mg of glucagon/mL. Shake vial gently to dissolve. glucagon (GLUCAGEN) injection 1 mg 1 mg, Subcutaneous, As needed, low bloo d sugar, low blood sugar, Starting on Tue03/09/21 at 2043, Give if patient NPO and no IV access. May give IM or SQ in arm and turn patient on side. Reconstitute powder for injection by adding 1 mL of dental financial coordinator-supplied sterile diluent or sterile water for injection to a vial containing 1 unit o f the drug, to provide solutions containing 1 mg of glucagon/mL. Shake vial gently to dissolve. glucose chewable tablet 16-32 g 16-32 g, Oral, As needed, low blood sugar, Starting on Tue03/09/21 at 2043 , Give food, drink, or glucose tablets [...] less than 70 mg/dL. 03/16/2021 1:55 PM BOLOGNA LACER 5,000 Units Left Arm heparin (porcine) 5,000 unit/mL Given injection 5,000 Units 5,000 Units, Subcutaneous, Every 8 hours, First dose on Tue03/09/21 at 2200 5,000 Units Left Lower Abdomen Given 03/16/2021 5:25 AM BOLOGNA LACER 5,000 Units Right Arm Given 03/15/2021 9:17 PM BOLOGNA LACER 03/15/2021 9:30 AM BOLOGNA LACER 1 mg HYDROmorphone (DILAUDID) injection 1 mg Given 1 mg, Intravenous, Every 3 hours PRN, breakthrough pain, Starting on 03/15/21 at 0913, Administer at a max rate of 1 mg/min; max dose for IVP is 4 mg. Note: Limit does not apply to patients who may be tolerant to opioid therapy or on continuous IV or PO opiat e therapy. 03/14/2021 2:18 AM BOLOGNA LACER 25 mg Left Del toid hydrOXYzine (VISTARIL) injection 25 mg Given 25 mg, Intramuscular, Every 6 hours PRN , anxiety, Starting on Maria A 03/12/21 at 0523, For IM Use Only 25 mg Left Deltoid Given 03/12/2021 5:41 AM BOLOGNA LACER 03/15/2021 9:18 PM BOLOGNA LACER 15 Units Right Ar m insulin detemir U-100 (LEVEMIR) Given injection 15 Units 15 Units, Subcutaneous, Nightly, First dose on Tue03/09/21 at 2100 15 Units Left Lower Abdomen Given 03/14/2021 9:39 PM BOLOGNA LACER 15 Units Right Arm Given 03/13/2021 9:47 PM BOLOGNA LACER 03/16/2021 8:00 AM BOLOGNA LACER 2 Units Left Arm insulin regular (HumuLIN R) injection Given 2-7 Units 2-7 Units, Subcutaneous, 4 times daily before meals and nightly, First dose on Tue03/09/21 at 2100, LEVEL 3 - Give [...] Units Left Arm Given 03/15/2021 5:14 PM BOLOGNA LACER 2 Units Right Arm Given 03/13/2021 5:26 PM BOLOGNA LACER ipratropium-albuteroL (DUO-NEB) 0.5-3 mg/3 mL nebulizer solution 3 mL 3 mL, Inhalation, Every 4 hours PRN, wheezing, shortness of air, Starting on Tue03/15/21 at 1345 lidocaine (GLYDO) 2 % jelly 1 application [...] for 6 hours (if able to monitor). 03/15/2021 9:15 PM BOLOGNA LACER 25 mg metoprolol tartrate (LOPRESSOR) tablet Given 25 mg 25 mg, Oral, Nightly, First dose on Tue03/09/21 at 2100, Hold if HR < 60 or SB P < 110. 25 mg Given 03/14/2021 9:33 PM BOLOGNA LACER 25 mg Given 03/13/2021 9:55 PM BOLOGNA LACER miconazole nitrate (ALOE VESTA) 2 % ointment Topical, 3 times daily PRN, perineal or skin fold redness, Starting on Tue03/09/21 at 1617, Consult wound care if no improvement within 3 days. 03/15/2021 9:16 PM BOLOGNA LACER 30 mg mirtazapine (REMERON) tablet 30 mg Given 30 mg, Oral, Nightly, Indications: ann r depressive disorder, First dose on Tue03/09/21 at 2145 30 mg Given 03/14/2021 9:33 PM BOLOGNA LACER 30 mg Given 03/13/2021 9:55 PM BOLOGNA LACER naloxone (NARCAN) injection 0.08 mg 0.08 mg, [...] if naloxone is administered. 03/11/2021 7:34 AM BOLOGNA LACER 4 mg ondansetron (ZOFRAN) injection 4 mg Given 4 mg, Intravenous, Every 6 hours PRN, nausea/vomiting (3rd line), Starting on Tue03/09/21 at 1617 03/16/2021 5:49 PM BOLOGNA LACER 8 mg ondansetron (ZOFRAN-ODT) disintegrating Given tablet [...] tube. 8 mg Given 03/16/2021 11:02 AM BOLOGNA LACER 8 mg Given 03/16/2021 5:25 AM BOLOGNA LACER 03/16/2021 8:06 PM BOLOGNA LACER 10 mg oxyCODONE (ROXICODONE) immediate release Given tablet 5-10 mg 5-10 mg, Oral, Every 4 hours PRN, moderate pain (pain score 4-6), Startin g on Tue03/09/21 at 1617 10 mg Given 03/16/2021 11:02 AM BOLOGNA LACER 10 mg Given 03/16/2021 5:25 AM BOLOGNA LACER 03/16/2021 5:49 PM BOLOGNA LACER 40 mg pantoprazole (PROTONIX) EC tablet 40 mg Given 40 mg, Oral, 2 times daily before meals , First dose on Tue03/09/21 at 1700, DO NOT CRUSH OR CHEW. 40 mg Given 03/16/2021 6:05 AM BOLOGNA LACER 40 mg Given 03/15/2021 5:14 PM BOLOGNA LACER 03/14/2021 9:39 PM BOLOGNA LACER 17 g polyethylene glycol (GLYCOLAX) packet 17 Given g 17 g, Oral, Daily PRN, constipation, Starting on Tue03/11/21 at 1140 17 g Given 03/13/2021 9:55 PM BOLOGNA LACER 17 g Given 03/11/2021 12:20 PM BOLOGNA LACER potassium bicarb-citric acid (EFFER-K) effervescent tablet 20 [...] of 20 mEq/hr through a central line. 03/15/2021 9:26 AM BOLOGNA LACER 1 patch Behind R ight Ear scopolamine (TRANSDERM-SCOP) 1 mg over 3 Patch days 1 patch Applied 1 patch, Transdermal, Administer over 3 Days, Every 72 hours, First dose on Maria A 03/12/21 at 0900, Place behind ear. Remove patch prior to MRI. Avoid cuttin g patch. 1 patch Behind Left Ear Patch Applied 03/12/2021 9:00 AM BOLOGNA LACER 03/09/2021 3:38 PM BOLOGNA LACER 1,000 mL Operativ e Site sodium chloride irrigation (NS) 0.9 % Given As needed, Starting on Tue03/09/21 at 1538, Intra-op 03/16/2021 6:22 PM BOLOGNA LACER 1 g sucralfate (CARAFATE) tablet 1 g Given 1 g, Oral, 2 times daily before meals, First dose on Tue03/09/21 at 1700, Do not give within 30 minutes of acid reducing agents. Separate from other medications by 2 hours. Take on empty stomach 1 g Given 03/16/2021 6:05 AM BOLOGNA LACER 1 g Given 03/15/2021 6:25 PM BOLOGNA LACER 03/15/2021 9:16 PM BOLOGNA LACER 150 mg trazodone (DESYREL) tablet 150 mg Given 150 mg, Oral, Nightly, First dose on Mo n 03/09/21 at 2100 150 mg Given 03/14/2021 9:33 PM BOLOGNA LACER 150 mg Given 03/13/2021 9:43 PM BOLOGNA LACER documented in this encounter Active and Recently Administered Medications Times are shown in BOLOGNA LACER. 03/15/2021 03/16/2021 Medication Order 03/14/2021 0554 (Given - Provider: Laura Meza RN)1424 (Given - Provider: Rossana Mtz, RN)2116 (Given - Provider: Erika Rowe, RN) 0524 (Given - Provider: Laura Meza RN)1355 (Given - Provider: Rossana Mtz RN) acetaminophen (TYLENOL) tablet 1,000 mg 0553 (Given - 1,000 mg, Oral, Every 8 hours, First Provider: Colt Aguilera dose on Tue03/09/21 at 2100, Do not SHASTA Meza)1347 exceed 4 GM/DAY of acetaminophen. If 65 (Given - Pr ovider: or older do not exceed 3 GM/DAY. If Rossana Mtz, chronic alcoholic do not exceed 2 RN)2133 (Given - GM/DAY. Provider: Laura Meza RN) 211 (Given - Provider: Erika Rowe, SHASTA) atorvastatin (LIPITOR) tablet 20 mg 2132 (Given - 20 mg, Oral, Nightly, First dose on Mon Provider: Naomi Aguilera 03/09/21 at 2100 SHASTA Meza) 0925 (Given - Provider: Cory Boyd)2115 (Given - Provider: Erika Rowe RN) 0801 (Given - Provider: Cory Boyd) docusate sodium (COLACE) capsule 100 mg 0834 (Given - 100 mg, Oral, 2 times daily, First dose Provider: Ashvin dc on 03/09/21 at 2100, Hold these SHASTA Mtz)213 medications if patient has had loose (Given - Provid er: stool or diarrhea within previous 24 Laura Meza RN) hours. Swallow capsule whole 0925 [...] Give with food to reduce GI upset SHATSA Mtz - Reason: Given previously)1730 (Given - [...] site. 0822 (Given - Provider: Nina ross, OFFICE INSPECTOR - Comment: pt rinsed mouth) 0900 (Hold this dose - Provider: Jodie Mariee, RUFINA - Reason: Other) fluticasone furoate-vilanteroL (BREO 0932 [...] (Given - injection 5,000 Units Provider: Laura Aguilera 5,000 Units, Subcutaneous, Every 8 SHASTA Meza)1347 hours, First dose on Tue03/09/21 at (Given - Provid er: 2200 Rossana Mtz RN)2133 (Given - Provider: Laura Meza RN) 2118 (Given - Provider: Erika Rowe RN) insulin detemir U-100 (LEVEMIR) 2138 (Given - injection 15 Units Provider: Laura Aguilera 15 Units, Subcutaneous, Nightly, First SHASTA Meza) [...] to scheduled mealtime insulin - Provider: Javad athryn per table DO NOT GIVE for any [...] Given 0 units 121-150 - Provider: Laura Aguilera 0 units 151-200 SHASTA Meza - Reason: [...] 0900 (Not Given - application Provider: Rossana Angeles application, Topical, Daily, First SHASTA Mtz - [...] 2132 (Given - 25 mg Provider: Laura Aguilera 25 mg, Oral, Nightly, First dose on Tue SHASTA Meza) 03/09/21 at 2100, Hold if HR < 60 or SB P < 110. 2115 (Given - Provider: Erika Rowe RN) mirtazapine (REMERON) tablet 30 mg 2132 (Given - 30 mg, Oral, Nightly, Indications: major Provider: Patt Aguilera depressive disorder, First dose on Tue SHASTA Meza) 03/09/21 at 2145 0554 (Given - Provider: Laura Meza RN)1055 (Given - Provider: Rossana Mtz RN)1714 (Given - Provider: Rossana Mtz RN)2115 (Given - Provider: Erika Rowe RN)2300 (Hold this dose - Provider: Erika Rowe RN - Reason: Given previously) 0525 (Given - Provider: Laura Meza RN)1102 (Given - Provider: Rossana Mtz RN)1749 (Given - Provider: Rossana Mtz RN) ondansetron (ZOFRAN-ODT) disintegrating 0553 (Given - tablet 8 mg Provider: Laura Aguilera 8 mg, Oral, Every 6 hours, First dose on SHASTA Meza) 1143 03/09/21 at 1700, Do not remove from (Given - Pr ovider: blister until needed. Peel backing off Dilma lange, the blister, do not push tablet through. RN)1605 (Gi mani - For ORAL administration, using dry Provider: Rossana hands place tablet on tongue and allow SHASTA [...] - Reason: Given previously)1714 (Given - Provider: Rossana Mtz RN) 0605 (Given - Provider: Laura Meza RN)0730 (Hold this dose - Provider: Laura Meza RN - Reason: Given previously)1749 (Given - Provider: Rossana Mtz RN) pantoprazole (PROTONIX) EC tablet 40 mg 0651 (Given - 40 mg, Oral, 2 times daily before meals, Provider: Patt Aguilera First dose on Tue03/09/21 at 1700, DO [...] 2 times daily before meals, Provider: Maggie Aguilera First dose on Tue03/09/21 at 1700, Do Derrick RN)17 30 not give within 30 minutes of acid (Given - Provider : reducing agents. Separate from other Rossana Mtz RN) medications by 2 hours. Take on empty stomach 2115 (Given - Provider: Erika Rowe RN) trazodone (DESYREL) tablet 150 mg 2132 (Given - 150 mg, Oral, Nightly, First dose on Tue Provider: Patt Aguilera 03/09/21 at 2100 SHASTA Meza) 03/15/2021 03/16/2021 [...] for injection by adding 1 mL of dental financial coordinator-supplied sterile diluent or sterile water for injection [...] for injection by adding 1 mL of dental financial coordinator-supplied sterile diluent or sterile water for injection [...] mg, Intramuscular, Every 6 hours PRN, Provider: Patt russo, Starting on Maria A 03/12/21 at Derrick, RN) 0581, For IM Use Only ipratropium-albuteroL (DUO-NEB) 0.5-3 [...] (3rd line), Starting on Tue03/09/21 at 1617 0553 (Given - Provider: Laura Meza RN)1050 (Given - Provider: Rossana Mtz, RN)1825 (Given - Provider: Rossana Mtz RN)2228 (Given - Provider: Laura Meza RN) 0525 (Given - Provider: Laura Meza, RN)1102 (Given - Provider: Rossana Mtz, RN)2006 (Given - Provider: Laura Meza, RN) oxyCODONE (ROXICODONE) immediate release 0559 (Given - tablet 5-10 mg Provider: Laura Aguilera 5-10 mg, Oral, Every 4 hours PRN, SHASTA Meza)1347 moderate pain (pain score 4-6), Starting (Given - Pr ovider: on Tue03/09/21 at 1617 Rossana Mtz RN)1956 (Given - Provider: Laura Meza RN) polyethylene glycol (GLYCOLAX) packet 17 2138 (Given - g Provider: Laura Aguilera 17 g, Oral, Daily PRN, constipation, SHASTA Meza) Starting on Tue03/11/21 at 1140 potassium bicarb-citric acid (EFFER-K) effervescent [...] inje ction by adding 1 mL of dental financial coordinator- supplied sterile diluent or sterile water for [...] inje ction by adding 1 mL of dental financial coordinator- supplied sterile diluent or sterile water for [...] encounter Care Teams Start Date End Date Rails Developer Relationship Specialty 10/24/19 James Euceda MD PCP - General [address] [phone] documented as of this encounter
--- OUTSIDE RECORDS SUMMARY | 2021-05-01 12:54 | XMS REPORT | Encounter Summary ---
Author Author [facility] Organization [facility] Address Unknown Phone Unavailable Care Team Providers Care See Wheeler Name Role Phone James Euceda MD PCP Encounter Details Care Team Description Date Type Department Lenin Vieira MD [address] [place] [address] 03/03/2021 Documentation [facility] [address] [place] [address] Social History Date Tobacco Use Types Packs/Day Years Used Started: 1987 Current Every Day Smoker Cigarettes 0.5 Smokeless Tobacco: Never Used [...] encounter Care Teams Start Date End Date See Wheeler Relationship Specialty 10/24/19 James Euceda MD PCP - General Family [address] [place] [phone] documented as of this encounter
--- OUTSIDE RECORDS SUMMARY | 2021-05-01 12:54 | XMS REPORT | Encounter Summary ---
Author Author [facility] Organization [facility] Address Unknown Phone Unavailable Care Team Providers Care Claim Clerk Name Role Phone Ok, James VEGA PCP Encounter Details Care Team Description Date Type Department Lenin Vieira MD [address] [facility] [address] [place], [place] [id number] Encounter for preoperative screening lab oratory testing for COVID-19 virus 03/06/2021 Lab [facility]id Testing - [place] [address] [place] [address] Social History Date Tobacco Use Types Packs/Day [...] Procedure Name Priority Date/Time Associated Diag nosis SARS-COV-2 (COVID-19) Routine 03/06/2021 Encounte r for 9:51 AM INDUSTRIAL ENGINEERING INTERN preoperative screening laboratory testing for COVID-19 virus documented in this encounter Results * COVID-19 Preprocedure PCR (non-PUI) (03/06/2021 9:51 AM INDUSTRIAL ENGINEERING INTERN) SARS-COV-2 PCR Negative Negative [facility] Specimen Swab - NASOPHARYNGEAL SWAB Narrative [facility] - 03/06/2021 2:34 PM INDUSTRIAL ENGINEERING INTERN This RT-PCR test has been authorized by the FDA under an Emergency Use Authorization (EUA) for use by authorized laboratories. Performing Organization Address City/State/ZIP Code P lidya Number [facility] [address] [place], [place] [address] documented in this encounter Visit Diagnoses Diagnosis Encounter for preoperative screening la boratory testing for COVID-19 virus documented in this encounter Care Teams Start Date End Date Claim Clerk Relationship Specialty 10/24/19 James Euceda MD PCP - General [address] [phone] documented as of this encounter
--- OUTSIDE RECORDS SUMMARY | 2021-05-01 12:56 | XMS REPORT | Clinical Summary ---
Author Author [facility] Organization [facility] Address Unknown Phone Unavailable Care Team Providers Care Lot Technician Name Role Phone Self, James VEGA PCP Jennifer Palomino [phone] Unavailable Carina Myers ONCOLOGY REP Unavailable Unavailable Source Comments Some departments are not documenting in the electronic medical record. If you d o not see the information that you expected, contact Release of Information in [facility] [employer] Information Management department at [phone] for further assistan ce in locating additional records.[facility] Allergies Comments Active Allergy Reactions Severity Noted Date Adhesive Tape (Rosins) HIVES Medium 020 Meperidine HIVES Medium 10/17/2018 Hydromorphone HIVES Medium 11/25/2018 Hibiclens (Isopropyl HIVES Medium 9 Alcohol) Latex ANAPHYLAXIS, High 10/17/2018 HIVES Luvox HIVES Medium 10/17/2018 Morphine HIVES Medium 10/17/2018 Tardive dyskinesia Promethazine DYSTONIA High 02/12/2019 Metoclopramide DYSTONIA High 02/12/2019 Medications End Date Status Medication Sig Dispensed Refills Start Date Active scopolamine Apply one 4 patch 0 (TRANSDERM-SCOP) 1.5 mg 3 patch to top 9 day patch of skin as directed every 72 hours. Active albuterol (PROAIR HFA, Inhale 2 0 VENTOLIN HFA, PROVENTIL puffs by HFA) 90 mcg/actuation mouth into inhaler the lungs every 6 hours as needed for Wheezing or Shortness of Breath. Shake well before use. Active albuterol-ipratropium Inhale 3 mL 0 (DUO-NEB) 0.5 mg-3 mg(2.5 solution by mg base)/3 mL nebulizer nebulizer as solution directed as Needed for Wheezing. Active ondansetron (ZOFRAN) 8 mg Take 8 mg by 1 01/23 tablet mouth every 6 9 hours as needed. Active potassium chloride Take 10 mEq 0 (K-DUR) 10 mEq tablet by mouth daily. Take with a meal and a full glass of water. Active omeprazole DR (PRILOSEC) TAKE 1 60 capsule 0 0 40 mg capsule CAPSULE BY 0 MOUTH 30 MINUTES TO 1 HOUR BEFORE FIRST AND LAST MEAL OF THE DAY Additional Information Patient taking differently: 40 mg Oral TWICE DAILY, Informant: Self, Reported on 07/29/2019 Active bisacodyL (DULCOLAX) 10 Insert or 0 mg rectal suppository Apply 10 mg to rectal area as directed daily as needed. Active sucralfate (CARAFATE) 1 Take one 60 tablet 2 gram tablet tablet by 0 mouth twice daily. Take on an empty stomach. Additional Information Patient taking differently: 1 g Oral AT BEDTIME DAILY, Take on an empty stomach., Informant: Self, Reported on 11/30/2019 Active diazePAM (VALIUM) 10 mg Take 10 mg by 0 tablet mouth twice daily. Active atorvastatin (LIPITOR) 10 Take one 90 tablet 5 mg tablet tablet by 0 mouth daily. Active lisinopriL (ZESTRIL) 10 Take one 90 tablet 0 mg tablet tablet by 0 mouth daily. Active traZODone (DESYREL) 150 Take two 6 mg tablet tablets by 0 mouth at bedtime daily. Active fentaNYL (DURAGESIC) 25 Apply 1 patch 0 mcg/hr patch to top of skin as directed every 72 hours Active Problems Patient Care Coordination Note Please complete a medical screening exam to rule out emergent issues. If no emergent needs are identified, please contact the MVP Team. MVP Team Contact: , Pager: [phone] (Pager Available M-F [phone]) ED Visits: 4 Admissions: 4 Primary Desktop Manager of Utilization (see progress note): ED/911 easier to access. Patient's Barriers/Challenges: Reports concerns reaching established clinic providers. Unable to perform most ADLs Diabetes type 2 and Gastroparesis Interventions: Conducted MVP assessment Encouraged patient to contact established clinics at onset of concerning symptoms. Encouraged patient to continue advocating for herself. Discussed patient's concerns regarding HH with inpatient RNCM. Collaborated with GI clinic regarding patient's concerns, MVP status, and plans to decrease utilization. (11/29/2019) Next Steps: Consider encouraging patient to contact established clinics at the onset of concerning symptoms. Consider encouraging outpatient/inpatient physicians to collaborate on an outpatient treatment plant. Explore additional in-home resources with patient, such as HBCS. Providers: James Euceda (External PCP) / Chuy Leal Gastro / Lenin Zaidi & Gerald Chaudhry [facility]'s specialists. Disposition: Patient DC last on 12/04/2019 home with [facility] (P: [phone]) and TPN through [employer] ([phone]) Pt last assessed: 11/29/2019 Problem Noted Date Orthostatic hypotension 12/04/2019 Bacteremia 11/29/2019 Nausea and vomiting 11/09/2019 Gastroparesis 09/11/2019 Sepsis 07/28/2019 Leukocytosis 07/28/2019 Hypokalemia 03/18/2019 Intractable nausea and vomiting 03/18/2019 DM gastroparesis 01/23/2019 Functional diarrhea 01/23/2019 Left upper quadrant pain 01/23/2019 Hospital discharge follow-up 01/23/2019 Nausea & vomiting 11/25/2018 Type II diabetes mellitus Gastric ulcer Generalized abdominal pain Surgical History Surgery Date Site/Laterality Comments ABDOMEN SURGERY tubal ligation HX HYSTERECTOMY UPPER GASTROINTESTINAL 11/27/2018 N/A EGD per formed by Chuy Leal MD at ENDO/GI ENDOSCOPY UPPER GASTROINTESTINAL 11/27/2018 ESOPHAGOGASTROD UODENOSCOPY WITH BIOPSY - FLEXIBLE ENDOSCOPY performed by Chuy Leal MD at ENDO/GI UPPER GASTROINTESTINAL 11/27/2018 N/A ESOPHAG OGASTRODUODENOSCOPY WITH DIRECTED ENDOSCOPY SUBMUCOSAL INJECTION - FLEX IBLE performed by Chuy Leal MD at ENDO/GI UPPER GASTROINTESTINAL 02/12/2019 N/A ESOPHAG OGASTRODUODENOSCOPY WITH BIOPSY - FLEXIBLE ENDOSCOPY w/ Pylorus Botox performed by Chuy Leal MD at ENDO/GI ESOPHAGEAL DILATATION 03/19/2019 N/A ESOPHAGO GASTRODUODENOSCOPY WITH DILATION ESOPHAGUS WITH BALLOON 30 MM OR GREATER - FLEXIBL E performed by Eric Beaver MD at ENDO/GI UPPER GASTROINTESTINAL 06/11/2019 N/A ESOPHAG OGASTRODUODENOSCOPY WITH BIOPSY - FLEXIBLE ENDOSCOPY performed by Chuy Leal MD at ENDO/GI UPPER GASTROINTESTINAL 09/13/2019 N/A ESOPHAG OGASTRODUODENOSCOPY WITH BIOPSY - FLEXIBLE ENDOSCOPY performed by Chapincito Sloan MD at [facility] UPPER GASTROINTESTINAL 11/13/2019 N/A ESOPHAG OGASTRODUODENOSCOPY WITH DIRECTED ENDOSCOPY SUBMUCOSAL INJECTION - FLEX IBLE performed by Chapincito Sloan MD at [facility] ENDO Medical History Medical History Date Comments Type II diabetes mellitus (HCC) Essential hypertension Stomach problems COPD (chronic obstructive pulmonary disease) (HCC) Seizure (HCC) Hepatitis Hepatitis C (patient says s he is at a miniscule blank load without treatment) Gastroparesis Sleep apnea Family History Medical History Relation Name Comments None Reported Father None Reported Mother Relation Name Status Comments Father Alive Mother Alive Social History Date Tobacco Use Types Packs/Day Years Used Quit: 07/26/2019 Current Every Day Smoker Cigarettes 0.25 Smokeless Tobacco: Never Used Tobacco Cessation: Ready to Quit: No; Co unseling Given: No Comments Alcohol Use Standard Drinks/Week Not Currently 0 (1 standard drink = 0.6 o z pure alcohol) Alcohol Habits Answer Date Recorded How often do you have a drink containing alcohol? Never 10/17/2018 How many drinks containing alcohol do you have on No t asked a typical day when you are drinking? How often do you have six or more drinks on one Not asked occasion? 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 Blood Pressure 81 05/14/2020 10:54 AM VICE PRESIDENT FIN[employer]CIAL Pulse 36.3 C (97.4 F) 05/14/2020 10:54 AM VICE PRESIDENT FINANCIAL Temperature 15 01/10/2020 1:03 PM CDT Respiratory Rate 96% 01/29/2020 5:31 PM CDT Oxygen Saturation - - Inhaled Oxygen Concentration 95.3 kg (210 lb) 05/14/2020 10:54 AM VICE PRESIDENT FINANCIAL Weight 157.5 cm (5' 2") 05/14/2020 10:54 AM VICE PRESIDENT FINANCIAL Height 38.41 05/14/2020 10:54 AM VICE PRESIDENT FINANCIAL Body Mass Index Plan of Treatment Health Maintenance Due Date Last Done Comments DILATED EYE EXAM 06/30/1993 DTAP/TDAP VACCINES (1 - 06/30/1993 Tdap) FOOT EXAM 06/30/1993 PHYSICAL (COMPREHENSIVE) 06/30/1993 EXAM CERVICAL CANCER SCREENING 06/30/1996 BREAST CANCER SCREENING 2015 HBA1C 01/27/2020 07/28/2019, 11/25/2018 INFLUENZA VACCINE 11/23/2020 01/25/2020, 03/26/2016 HEPATITIS C SCREENING Completed 12/01/2019, 12/01/2019 HIV SCREENING Completed 12/01/2019 Goals Goal Patient Associated Recent Progress Patient-Stat Aut hor Goal Type Problems ed? Increase water intake Diet No Gabriela Sepulveda RN GOAL General No Mariajose Sanders RN Note: Get better GOAL General No Mariajose Sanders RN Note: Not to be throwing up Implants Device Identifier Shelf Expiration Date Model / Serial / L ot Implanted Type Area Manufactur [id number] 04/24/2021 [id number] / NA / [id number] Tray Catheter 5fr 70cm Powerpicc 2 Left: Vein BA RD Lumen Guidewire Nitinol - Sna ACCESS Implanted: Qty: 1 on 10/18/2019 by Cooper Bell MD at [facility] [id number] 03/24/2022 [id number] / N/A / [id number] Tray Catheter 5fr 70cm Powerpicc 2 Left: Arm BA RD Lumen Guidewire Nitinol - Sn/A ACCESS Implanted: Qty: 1 on 11/07/2019 by Darryl Valdes MD at [facility] [id number] 01/22/2023 [id number] / N/A / [id number] Tray Catheter 5fr 1 Lumen Right: Chest BARD Microintroducer Surecuff Tissue - ACCESS Sn/A SYSTEMS Implanted: Qty: 1 on 11/12/2019 by Farhad Holliday MD at [facility] [id number] 04/24/2021 [id number] / N/A / [id number] Tray Catheter 5fr 70cm Powerpicc 2 Right: Chest BA RD Lumen Guidewire Nitinol - Sn/A ACCESS Implanted: Qty: 1 on 12/03/2019 by Stewart Adam MD at [facility] [id number] 03/24/2022 [id number] / N/A / [id number] Tray Catheter 5fr 70cm Powerpicc 2 Right: Arm BA RD Lumen Guidewire Nitinol - Sn/A ACCESS Implanted: Qty: 1 on 12/13/2019 by Darryl Valdes MD at [facility] [id number] 08/22/2022 [id number] / [id number] / [id number] Tray Catheter 5fr 70cm Powerpicc 2 Right: Arm BA RD Lumen Guidewire Nitinol - [id number] ACCESS Implanted: Qty: 1 on 01/29/2020 by Teofilo Reynolds MD at [facility] Results Not on filefrom Last 3 Months Insurance Type Payer Benefit Subscriber ID Effective Phone Address Plan / Dates Group AETNA MEDICAID AETNA [id number] 2018-P [phone] [address] [place] [address] Advance Directives Patient [employer] Explanation Type Date Recorded Advance 12/11/2019 12:00 AM Directive/DPOA Date Inactivated Comments Code Status Date Activated 12/04/2019 1:44 PM Full Code 11/29/2019 5:50 PM Provider has discussed Code Status Yes w/Patient or Family? 11/13/2019 7:36 PM Full Code 11/09/2019 5:41 PM Provider has discussed Code Status No, more discussi on w/Patient or Family? needed 09/14/2019 6:02 PM Full Code 09/11/2019 9:07 PM Provider has discussed Code Status No, discussion no t w/Patient or Family? necessary based on Dx 08/02/2019 3:10 PM Full Code 07/28/2019 6:23 PM Provider has discussed Code Status No, more discussi on w/Patient or Family? needed 03/21/2019 1:48 PM Full Code 03/18/2019 8:28 PM Provider has discussed Code Status Yes w/Patient or Family? Care Teams Start Date End Date Lot Technician Relationship Specialty 07/27/18 James Euceda MD PCP - General Family Medicine 11/12/19 Jennifer Palomino Continuum of Care Case Management 11/29/19 Carina Myers, ONCOLOGY REP
[2021-05-01] MEDS ORDERED: NS IV 1000 ML 1,000 ML IV SCH (13:15)
[2021-05-01] MEDS ORDERED: VANCOMYCIN INJECTION 1,000 MG in NS (IVPB) 250 ML IV ONE (13:15)
[2021-05-01 13:47] LABS: HEMOGLOBIN 14.9 g/dL (11.5-16.0); MEAN CORPUSCULAR HEMOGLOBIN 31 pg (25-34); WHITE BLOOD COUNT 8.8 10^3/uL (4.3-11.0)
[2021-05-01 13:48] LABS: BILIRUBIN,URINE NEGATIVE (NEGATIVE); CLARITY,URINE CLEAR; COLOR,URINE YELLOW; GLUCOSE, URINE (UA) NEGATIVE (NEGATIVE); KETONES,URINE NEGATIVE (NEGATIVE); LEUKOCYTE ESTERASE ,URINE NEGATIVE (NEGATIVE); NITRITE,URINE NEGATIVE (NEGATIVE); PROTEIN,URINE NEGATIVE (NEGATIVE)
--- NOTE | 2021-05-01 13:49 | ED General ---
General Chief Complaint: Skin/Wound Problems Stated Complaint: MRSA INFECTION Source of Information: Patient Exam Limitations: No Limitations History of Present Illness Date Seen by Provider: May 01, 2021 Time Seen by Provider: 13:30 Initial Comments Patient is a 45-year-old female with a nonhealing lower abdominal surgical wound with wound VAC in place who is currently on Zyvox for treatment of MRSA. Patient reports chills sweats, flushing and diffuse swelling extremities as well as increased pain tenderness adjacent to the wound VAC site. Patient states she has had multiple episodes of MRSA and sepsis and typically does not run fever. Today's symptoms began several hours prior to ED arrival. Patient was scheduled for wound VAC check this morning but was instructed by the center to come to the emergency department. No nausea vomiting, near no chest pain shortness of breath. Sore throat, urinary frequency urgency or dysuria. No other acute symptoms or complaints Timing/Duration: 4-6 Hours Severity: Moderate Modifying Factors: improves with Other Associated Systoms: Other Allergies and Home Medications Allergies Coded Allergies: adhesive tape (Verified Allergy, Unknown, 09/28/18) chlorhexidine (Verified Allergy, Unknown, 07/29/18) fluvoxamine (Verified Allergy, Unknown, 07/29/18) hydromorphone (Verified Allergy, Unknown, 07/29/18) latex (Verified Allergy, Unknown, 07/29/18) meperidine (Verified Allergy, Unknown, 07/29/18) morphine (Verified Allergy, Unknown, 05/19/18) sulfamethoxazole (Verified Allergy, Unknown, 05/19/18) trimethoprim (Verified Allergy, Unknown, 05/19/18) metoclopramide (Unverified Adverse Reaction, Intermediate, Tardive Dyskinesia, 02/02/19) promethazine (Unverified Adverse Reaction, Intermediate, Tardive Dyskinesia, 02/02/19) Patient Home Medication List Home Medication List Reviewed: Yes Acetaminophen (Acetaminophen Extra Strength) 500 Mg Tablet, 500 MG PO Q8H PRN for PAIN-BREAKTHROUGH, (Reported) Entered as Reported by: CAVLIN LAGOS on 05/20/18 1037 Albuterol Sulfate (Proair Hfa) 1 Puff Puff, 2 PUFF IH Q4H PRN for SHORTNESS OF BREATH, (Reported) Entered as Reported by: CALVIN LAGOS on 05/20/18 1032 Amlodipine Besylate (Amlodipine Besylate) 10 Mg Tablet, (Reported) Entered as Reported by: TOM RIVERS on 08/06/19 1600 Amoxicillin/Potassium Clav (Amox Tr-K Clv 400-57/5 Susp) 400 Mg/5 Ml Susp.recon, (Reported) Entered as Reported by: TOM RIVERS on 08/06/19 1600 Canagliflozin (Invokana) 100 Mg Tablet, (Reported) Entered as Reported by: TOM RIVERS on 03/18/19 1416 Carvedilol (Carvedilol) 25 Mg Tablet, (Reported) Entered as Reported by: TOM RIVERS on 08/06/19 1600 Clonidine HCl (Clonidine HCl) 0.1 Mg Tablet, (Reported) Entered as Reported by: TOM RIVERS on 08/06/19 1600 Dicyclomine HCl (Dicyclomine HCl) 20 Mg Tablet, 20 MG PO BID Prescribed by: SHAE PICHARDO on 11/06/19 1541 Fluconazole (Diflucan) 100 Mg Tablet, 100 MG PO DAILY Prescribed by: SHAE PICHARDO on 01/04/20 1632 Insulin Aspart (Novolog Flexpen) 300 Units/3 Ml Solution, 7 UNITS SQ AC Prescribed by: OSMAR JEROME on 05/23/18 0955 Insulin Detemir (Levemir Flextouch) 100 Unit/1 Ml Insuln.pen, 20 UNIT SQ HS Prescribed by: OSMAR JEROME on 05/23/18 0955 Ipratropium/Albuterol Sulfate (Iprat-Albut 0.5-3(2.5) mg/3 ml) 3 Ml Ampul.neb, 3 ML IH Q4H PRN for SHORTNESS OF BREATH, (Reported) Entered as Reported by: CALVIN LAGOS on 05/20/18 1033 Ketorolac Tromethamine (Ketorolac Tromethamine) 10 Mg Tablet, 10 MG PO Q6H PRN for PAIN-MODERATE (5-7) Prescribed by: REGINA ROBLES MD on 04/21/19 1344 Lisinopril (Lisinopril) 20 Mg Tablet, 20 MG PO DAILY Prescribed by: OSMAR JEROME on 05/23/18 0955 Lisinopril (Lisinopril) 40 Mg Tablet, (Reported) Entered as Reported by: TOM RIVERS on 08/06/19 1600 Metformin HCl (Metformin HCl ER) 750 Mg Tab.er.24h, 750 MG PO BID, (Reported) Entered as Reported by: CALVIN LAGOS on 05/20/18 1034 Metoclopramide HCl (Metoclopramide HCl) 10 Mg Tablet, 10 MG PO QID, (Reported) Entered as Reported by: CALVIN LAGOS on 05/20/18 1036 Omeprazole (Omeprazole) 20 Mg Capsule.dr, 20 MG PO HS, (Reported) Entered as Reported by: CALVIN LAGOS on 05/20/18 1035 Ondansetron (Ondansetron Odt) 4 Mg Tab.rapdis, 4 MG PO Q4H PRN for NAUSEA/VOMITING-1ST LINE, (Reported) Entered as Reported by: CALVIN LAGOS on 05/20/18 1036 Ondansetron (Ondansetron Odt) 4 Mg Tab.rapdis, 4 MG PO BID Prescribed by: SHAE PICHARDO on 11/06/19 1541 Promethazine HCl (Promethazine Tablet) 25 Mg Tablet, 25 MG PO Q6H PRN for NAUSEA/VOMITING, (Reported) Entered as Reported by: CALVIN LAGOS on 05/20/18 1029 Promethazine HCl (Promethazine Tablet) 25 Mg Tablet, 25 MG PO Q6H PRN for NAUSEA/VOMITING-2ND LINE Prescribed by: ADA IRELAND on 10/09/181923 Promethazine HCl (Phenergan) 50 Mg Supp.rect, 50 MG RC BID PRN Prescribed by: ALDO GUZMAN on 03/16/19 1331 Sucralfate (Carafate) 1 Gm Tablet, 1 GM PO QID Prescribed by: ADA IRELAND on 10/09/181923 Tramadol HCl (Tramadol HCl) 50 Mg Tablet, 50 MG PO Q6H PRN for PAIN-MILD, (Reported) Entered as Reported by: CALVIN LAGOS on 05/20/18 1030 Trazodone HCl (Trazodone HCl) 150 Mg Tablet, 300 MG PO HS, (Reported) Entered as Reported by: CALVIN LAGOS on 05/20/18 1034 Venlafaxine HCl (Venlafaxine HCl ER) 150 Mg Tab.er.24, 150 MG PO DAILY, (Reported) Entered as Reported by: CALVIN LAGOS on 05/20/18 1032 Review of Systems Review of Systems Constitutional: see HPI EENTM: see HPI Respiratory: see HPI Cardiovascular: see HPI Gastrointestinal: see HPI Genitourinary: see HPI Musculoskeletal: see HPI Past Emnbnaq-Iozrrq-Kcmypy Hx Seasonal Allergies Seasonal Allergies: Yes Past Medical History Surgeries: Yes (Jejunostomy tube 07/26/19; gastric stimulator; pyloroplasty) Gallbladder, Hysterectomy, Orthopedic Respiratory: Yes (Tobaccoism) Asthma Currently Using CPAP: Yes Currently Using BIPAP: No Cardiac: No Neurological: No Female 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 Disorders: Denies 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 Sexually Transmitted Disease: No HIV/AIDS: No Genitourinary: No Gastrointestinal: Yes (Gastroparesis; Hepatitis C; possible cyclic vomiting) Gastroesophageal Reflux, Ulcer Musculoskeletal: No Endocrine: Yes Diabetes, Insulin dep HEENT: Yes (wears glasses) Hearing Impairment: Denies Cancer: No Psychosocial: Yes (schizoeffective disorder) Anxiety, Depression Integumentary: No Blood Disorders: No Physical Exam Vital Signs Vital Signs - First Documented 05/01/21 12:51 Temp 36.0 Pulse 89 Resp 16 B/P (MAP) 154/90 (111) Pulse Ox 96 O2 Delivery Room Air Capillary Refill : Height, Weight, BMI Height: 5'2.00" Weight: 184lbs. 7.0oz. 83.759032ys; 32.00 BMI Method:Actual General Appearance: No Apparent Distress, Other (Generalized flushing) Eyes: Bilateral Eye Normal Inspection, Bilateral Eye PERRL HEENT: PERRL/EOMI, Pharynx Normal Neck: Full Range of Motion, Normal Inspection, Supple Respiratory: Chest Non Tender, Lungs Clear, Normal Breath Sounds Cardiovascular: Regular Rate, Rhythm Gastrointestinal: Non Tender, Soft, Other (Lower torso, wound VAC, tenderness around wound VAC site. Wound VAC dressing not removed) Back: No CVA Tenderness Focused Exam Sepsis Stage: Ruled Out Lactate Level 05/01/21 13:25: Lactic Acid Level 2.14*H Lactic Acid Level Laboratory Tests Test 05/01/21 13:25 Lactic Acid Level 2.14 MMOL/L (0.50-2.00) *H Progress/Results/Core Measures Suspected Sepsis SIRS Temperature: Pulse: Respiratory Rate: Laboratory Tests 05/01/21 13:25: White Blood Count 8.8 Blood Pressure / Mean: 05/01/21 13:25: Lactic Acid Level 2.14*H Laboratory Tests 05/01/21 13:25: Creatinine 0.76, Platelet Count 155, Total Bilirubin 0.4 Results/Orders Lab Results Laboratory Tests Test 05/01/21 13:25 05/01/21 13:39 05/01/21 13:40 Range/Units White Blood Count 8.8 4.3-11.0 10^3/uL Red Blood Count 4.87 3.80-5.11 10^6/uL Hemoglobin 14.9 11.5-16.0 g/dL Hematocrit 44 35-52 % Mean Corpuscular Volume 91 80-99 fL Mean Corpuscular Hemoglobin 31 25-34 pg Mean Corpuscular Hemoglobin Concent 34 32-36 g/dL Red Cell Distribution Width 12.9 10.0-14.5 % Platelet Count 155 130-400 10^3/uL Mean Platelet Volume 10.0 9.0-12.2 fL Immature Granulocyte % (Auto) 0 % Neutrophils (%) (Auto) 76 H 42-75 % Lymphocytes (%) (Auto) 17 12-44 % Monocytes (%) (Auto) 5 0-12 % Eosinophils (%) (Auto) 1 0-10 % Basophils (%) (Auto) 0 0-10 % Neutrophils # (Auto) 6.7 1.8-7.8 X 10^3 Lymphocytes # (Auto) 1.5 1.0-4.0 X 10^3 Monocytes # (Auto) 0.5 0.0-1.0 X 10^3 Eosinophils # (Auto) 0.1 0.0-0.3 10^3/uL Basophils # (Auto) 0.0 0.0-0.1 10^3/uL Immature Granulocyte # (Auto) 0.0 0.0-0.1 10^3/uL Sodium Level 136 135-145 MMOL/L Potassium Level 4.2 3.6-5.0 MMOL/L Chloride Level 101 98-107 MMOL/L Carbon Dioxide Level 23 21-32 MMOL/L Anion Gap 12 5-14 MMOL/L Blood Urea Nitrogen 10 7-18 MG/DL Creatinine 0.76 0.60-1.30 MG/DL Estimat Glomerular Filtration Rate 82 BUN/Creatinine Ratio 13 Glucose Level 156 H 70-105 MG/DL Lactic Acid Level 2.14 *H 0.50-2.00 MMOL/L Calcium Level 9.5 8.5-10.1 MG/DL Corrected Calcium 9.3 8.5-10.1 MG/DL Total Bilirubin 0.4 0.1-1.0 MG/DL Aspartate Amino Transf (AST/SGOT) 18 5-34 U/L Alanine Aminotransferase (ALT/SGPT) 8 0-55 U/L Alkaline Phosphatase 87 40-136 U/L C-Reactive Protein < 0.30 <0.50 MG/DL Total Protein 7.8 6.4-8.2 GM/DL Albumin 4.2 3.2-4.5 GM/DL Urine Color YELLOW Urine Clarity CLEAR Urine pH 6.0 5-9 Urine Specific [place] 1.020 1.016-1.022 Urine Protein NEGATIVE NEGATIVE Urine Glucose (UA) NEGATIVE NEGATIVE Urine Ketones NEGATIVE NEGATIVE Urine Nitrite NEGATIVE NEGATIVE Urine Bilirubin NEGATIVE NEGATIVE Urine Urobilinogen 0.2 < = 1.0 MG/DL Urine Leukocyte Esterase NEGATIVE NEGATIVE Urine RBC (Auto) TRACE-I H NEGATIVE Urine RBC RARE /HPF Urine WBC RARE /HPF Urine Squamous Epithelial Cells 2-5 /HPF Urine Crystals NONE /LPF Urine Bacteria NEGATIVE /HPF Urine Casts NONE /LPF Urine Mucus MODERATE H /LPF Urine Culture Indicated NO My Orders Orders - CATARINA LOCK DO Cbc With Automated Diff (05/01/21 13:10) Comprehensive Metabolic Panel (05/01/21 13:10) Crp Fs (05/01/21 13:10) Blood Culture (05/01/21 13:10) Ua Culture If Indicated (05/01/21 13:10) Covid 19 Inhouse Test (05/01/21 13:10) Isolation Central Supply Req (05/01/21 13:10) Ns Iv 1000 Ml (Sodium Chloride 0.9%) (05/01/21 13:15) Vancomycin Injection (Vancomycin Injecti (05/01/21 13:15) Blood Culture (05/01/21 13:37) Lactic Acid Analyzer (05/01/21 15:13) Medications Given in ED Current Medications Medications Dose Ordered Sig/Ashley Route Start Time Stop Time Status Last Admin Dose Admin Vancomycin HCl 1000 mg/Sodium Chloride 250 ml @ 250 mls/hr ONCE ONCE IV 05/01/21 13:15 05/01/21 14:14 DC 05/01/21 13:46 250 MLS/HR Vital Signs/I&O 05/01/21 12:51 Temp 36.0 Pulse 89 Resp 16 B/P (MAP) 154/90 (111) Pulse Ox 96 O2 Delivery Room Air Capillary Refill : Departure Communication (Admissions) Case reviewed with Dr. Yin Clark. White blood cell count, C-reactive protein are reassuring. There is some concern the patient may be having a reaction to linezolid, which is started earlier this week. Recommendations are to hold linezolid over the weekend and to follow-up with wound care Tuesday. Return precautions reviewed. Patient verbalizes understanding agreement discharge instructions prior to departure. Impression Primary Impression: Encounter for medical screening examination Disposition: HOME, SELF-CARE Condition: Stable Departure-Patient Inst. Decision time for Depature: 15:44 Referrals: GLORY LINARES MD (PCP/Family) Primary Care Physician Add. Discharge Instructions: You were evaluated in the emergency department for possible infectious versus allergic symptoms. The exact cause of your symptoms is not being determined. Please hold linezolid over the weekend and follow-up with your wound care provider on Tuesday. In the meantime if you develop new or worsening symptoms, return to the emergency department. All discharge instructions reviewed with patient and/or family. Voiced understanding. CATARINA LOCK DO May 01, 2021 13:49
[2021-05-01 13:54] LABS: HEMATOCRIT 44 % (35-52); MEAN CORPUSCULAR HGB CONC 34 g/dL (32-36); MEAN CORPUSCULAR VOLUME 91 fL (80-99); PLATELET COUNT 155 10^3/uL (130-400)
[2021-05-01 13:55] LABS: BASOPHILS % (AUTO) 0 % (0-10); EOSINOPHILS # (AUTO) 0.1 10^3/uL (0.0-0.3); EOSINOPHILS % (AUTO) 1 % (0-10); LYMPHOCYTES # (AUTO) 1.5 X 10^3 (1.0-4.0); LYMPHOCYTES % (AUTO) 17 % (12-44); MONOCYTES # (AUTO) 0.5 X 10^3 (0.0-1.0); MONOCYTES % (AUTO) 5 % (0-12); NEUTROPHILS # (AUTO) 6.7 X 10^3 (1.8-7.8); NEUTROPHILS % (AUTO) 76 % (42-75)
[2021-05-01 14:09] LABS: BACTERIA,URINE NEGATIVE /HPF; RBC,URINE RARE /HPF; WBC,URINE RARE /HPF
[2021-05-01 14:19] LABS: BILIRUBIN,TOTAL 0.4 MG/DL (0.1-1.0); BUN/CREATININE RATIO 13; CALCIUM 9.5 MG/DL (8.5-10.1); CARBON DIOXIDE 23 MMOL/L (21-32); CHLORIDE 101 MMOL/L (98-107); CREATININE SERUM 0.76 MG/DL (0.60-1.30); GFR ESTIMATED 82; GLUCOSE 156 MG/DL (70-105); POTASSIUM 4.2 MMOL/L (3.6-5.0); SODIUM 136 MMOL/L (135-145)
[2021-05-01 14:20] LABS: ALANINE AMINOTRANSFERASE 8 U/L (0-55); ALBUMIN 4.2 GM/DL (3.2-4.5); ALKALINE PHOSPHATASE 87 U/L (40-136); TOTAL PROTEIN 7.8 GM/DL (6.4-8.2)
== END 2021-05-01 15:45 | disposition home or self-care (01) ==
LOC: EDUNIT# 12:46 → ER FS 12:48
DX: Z00.00 Encounter for general adult medical examination without abnormal findings (principal); A41.02 Sepsis due to Methicillin resistant Staphylococcus aureus; J45.909 Unspecified asthma, uncomplicated; K21.9 Gastro-esophageal reflux disease without esophagitis; E11.9 Type 2 diabetes mellitus without complications; F32.9 Major depressive disorder, single episode, unspecified; F41.9 Anxiety disorder, unspecified; Z91.040 Latex allergy status; Z20.822 Contact with and (suspected) exposure to COVID-19; Z79.4 Long term (current) use of insulin; Z79.899 Other long term (current) drug therapy
CPT/HCPCS: 36415; 80053; 81000; 83605; 85025; 86141; 87040; 87636

== ENCOUNTER 2021-05-04 11:23 | Emergency (ER) | payer MEDICAID ==
[~2021-05-04] VITALS: Ht 157.5 cm; Wt 88.0 kg
--- NOTE | 2021-05-04 11:30 | ED GI ---
General Stated Complaint: VOMITING History of Present Illness Date Seen by Provider: May 04, 2021 Time Seen by Provider: 11:30 Initial Comments 45-year-old female presents with vomiting. Patient reports that she has been "vomiting" for the last 3 days and not well keep down her pain medicines. Patient denies a cough but is coughing in the room and sneezing. Patient reports she is got some diarrhea with it. No reports of fevers or chills. Patient does have a chronic wound VAC on her abdomen from a poor healing wound. Allergies and Home Medications Allergies Coded Allergies: adhesive tape (Verified Allergy, Unknown, 09/28/18) chlorhexidine (Verified Allergy, Unknown, 07/29/18) fluvoxamine (Verified Allergy, Unknown, 07/29/18) hydromorphone (Verified Allergy, Unknown, 07/29/18) latex (Verified Allergy, Unknown, 07/29/18) meperidine (Verified Allergy, Unknown, 07/29/18) morphine (Verified Allergy, Unknown, 05/19/18) sulfamethoxazole (Verified Allergy, Unknown, 05/19/18) trimethoprim (Verified Allergy, Unknown, 05/19/18) metoclopramide (Unverified Adverse Reaction, Intermediate, Tardive Dyskinesia, 02/02/19) promethazine (Unverified Adverse Reaction, Intermediate, Tardive Dyskinesi a, 02/02/19) Patient Home Medication List Home Medication List Reviewed: Yes Acetaminophen (Acetaminophen Extra Strength) 500 Mg Tablet, 500 MG PO Q8H PRN for PAIN-BREAKTHROUGH, (Reported) Entered as Reported by: CALVIN LAGOS on 05/20/18 1037 Albuterol Sulfate (Proair Hfa) 1 Puff Puff, 2 PUFF IH Q4H PRN for SHORTNESS OF BREATH, (Reported) Entered as Reported by: CALVIN LAGOS on 05/20/18 1032 Amlodipine Besylate (Amlodipine Besylate) 10 Mg Tablet, (Reported) Entered as Reported by: TOM RIVERS on 08/06/19 1600 Amoxicillin/Potassium Clav (Amox Tr-K Clv 400-57/5 Susp) 400 Mg/5 Ml Susp.recon, (Reported) Entered as Reported by: TOM RIVERS on 08/06/19 1600 Canagliflozin (Invokana) 100 Mg Tablet, (Reported) Entered as Reported by: TOM RIVERS on 03/18/19 1416 Carvedilol (Carvedilol) 25 Mg Tablet, (Reported) Entered as Reported by: TOM RIVERS on 08/06/19 1600 Clonidine HCl (Clonidine HCl) 0.1 Mg Tablet, (Reported) Entered as Reported by: TOM RIVERS on 08/06/19 1600 Dicyclomine HCl (Dicyclomine HCl) 20 Mg Tablet, 20 MG PO BID Prescribed by: SHAE PICHARDO on 11/06/19 1541 Fluconazole (Diflucan) 100 Mg Tablet, 100 MG PO DAILY Prescribed by: SHAE PICHARDO on 01/04/20 1632 Insulin Aspart (Novolog Flexpen) 300 Units/3 Ml Solution, 7 UNITS SQ AC Prescribed by: OSMAR JEROME on 05/23/18 0955 Insulin Detemir (Levemir Flextouch) 100 Unit/1 Ml Insuln.pen, 20 UNIT SQ HS Prescribed by: OSMAR JEROME on 05/23/18 0955 Ipratropium/Albuterol Sulfate (Iprat-Albut 0.5-3(2.5) mg/3 ml) 3 Ml Ampul.neb, 3 ML IH Q4H PRN for SHORTNESS OF BREATH, (Reported) Entered as Reported by: CALVIN LAGOS on 05/20/18 1033 Ketorolac Tromethamine (Ketorolac Tromethamine) 10 Mg Tablet, 10 MG PO Q6H PRN for PAIN-MODERATE (5-7) Prescribed by: REGINA ROBLES MD on 04/21/19 1344 Lisinopril (Lisinopril) 20 Mg Tablet, 20 MG PO DAILY Prescribed by: OSMAR JEROME on 05/23/18 0955 Lisinopril (Lisinopril) 40 Mg Tablet, (Reported) Entered as Reported by: TOM RIVERS on 08/06/19 1600 Metformin HCl (Metformin HCl ER) 750 Mg Tab.er.24h, 750 MG PO BID, (Reported) Entered as Reported by: CALVIN LAGOS on 05/20/18 1034 Metoclopramide HCl (Metoclopramide HCl) 10 Mg Tablet, 10 MG PO QID, (Reported) Entered as Reported by: CALVIN LAGOS on 05/20/18 1036 Omeprazole (Omeprazole) 20 Mg Capsule.dr, 20 MG PO HS, (Reported) Entered as Reported by: CALVIN LAGOS on 05/20/18 1035 Ondansetron (Ondansetron Odt) 4 Mg Tab.rapdis, 4 MG PO Q4H PRN for NAUSEA/VOMITING-1ST LINE, (Reported) Entered as Reported by: CALVIN LAGOS on 05/20/18 1036 Ondansetron (Ondansetron Odt) 4 Mg Tab.rapdis, 4 MG PO BID Prescribed by: SHAE PICHARDO on 11/06/19 1541 Promethazine HCl (Promethazine Tablet) 25 Mg Tablet, 25 MG PO Q6H PRN for NAUSEA/VOMITING, (Reported) Entered as Reported by: CALVIN LAGOS on 05/20/18 1029 Promethazine HCl (Promethazine Tablet) 25 Mg Tablet, 25 MG PO Q6H PRN for NAUSEA/VOMITING-2ND LINE Prescribed by: ADA IRELAND on 10/09/18 192 Promethazine HCl (Phenergan) 50 Mg Supp.rect, 50 MG RC BID PRN Prescribed by: ALDO GUZMAN on 03/16/19 1331 Promethazine HCl (Promethazine Tablet) 25 Mg Tablet, 25 MG PO Q8H PRN for NAUSEA/VOMITING Prescribed by: REBECA LUBIN on 05/04/21 1520 Sucralfate (Carafate) 1 Gm Tablet, 1 GM PO QID Prescribed by: ADA IRELAND on 10/09/181923 Tramadol HCl (Tramadol HCl) 50 Mg Tablet, 50 MG PO Q6H PRN for PAIN-MILD, (Reported) Entered as Reported by: CALVIN LAGOS on 05/20/18 1030 Trazodone HCl (Trazodone HCl) 150 Mg Tablet, 300 MG PO HS, (Reported) Entered as Reported by: CALVIN LAGOS on 05/20/18 1034 Venlafaxine HCl (Venlafaxine HCl ER) 150 Mg Tab.er.24, 150 MG PO DAILY, (Reported) Entered as Reported by: CALVIN LAGOS on 05/20/18 1032 Review of Systems Review of Systems Constitutional: No chills, No fever Respiratory: Cough; Denies Shortness of Air Gastrointestinal: Diarrhea, Nausea, Vomiting Musculoskeletal: no symptoms reported Skin: see HPI Psychiatric/Neurological: No Symptoms Reported Endocrine: No Symptoms Reported Hematologic/Lymphatic: No Symptoms Reported Past Lucvtqz-Qlreyw-Hhflhu Hx Seasonal Allergies Seasonal Allergies: Yes Past Medical History Surgery/Hospitalization HX: DM-gastroparesis, chronic abdominal wounds, chronic MRSA infections Surgeries: Yes (Jejunostomy tube 07/26/19; gastric stimulator; pyloroplasty) Gallbladder, Hysterectomy, Orthopedic Respiratory: Yes (Tobaccoism) Asthma Currently Using CPAP: Yes Currently Using BIPAP: No Cardiac: No Neurological: No Female 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 Disorders: Denies [employer] History: Hysterectomy Sexually Transmitted Disease: No HIV/AIDS: No Genitourinary: No Gastrointestinal: Yes (Gastroparesis; Hepatitis C; possible cyclic vomiting) Gastroesophageal Reflux, Ulcer Musculoskeletal: No Endocrine: Yes Diabetes, Insulin dep HEENT: Yes (wears glasses) Hearing Impairment: Denies Cancer: No Psychosocial: Yes (schizoeffective disorder) Anxiety, Depression Integumentary: No Blood Disorders: No Physical Exam Vital Signs Vital Signs - First Documented 05/04/21 05/04/21 11:25 15:51 Temp 36.7 Pulse 80 Resp 17 B/P (MAP) 147/81 (103) Pulse Ox 100 O2 Delivery Room Air Capillary Refill : Height/Weight/BMI Height: 5'2.00" Weight: 184lbs. 7.0oz. 83.234064mz; 35.00 BMI Method:Actual General Appearance: mild distress, obese HEENT: PERRL/EOMI Neck: full range of motion, supple Respiratory: lungs clear, normal breath sounds, no respiratory distress Cardiovascular: normal peripheral pulses, regular rate, rhythm Gastrointestinal: non tender, soft, other (Wound VAC in place for chronic midline nonhealing surgical incision) Extremities: normal range of motion Neurologic/Psychiatric: alert, normal mood/affect, oriented x 3 Skin: normal color, warm/dry Focused Exam Lactate Level 05/04/21 11:53: Lactic Acid Level 3.70*H 05/04/21 13:59: Lactic Acid Level 2.40*H Lactic Acid Level Laboratory Tests Test 05/04/21 11:53 05/04/21 13:59 Lactic Acid Level 3.70 MMOL/L (0.50-2.00) *H 2.40 MMOL/L (0.50-2.00) *H Progress/Results/Core Measures Results/Orders Lab Results Laboratory Tests Test 05/04/21 11:50 05/04/21 11:53 05/04/21 11:57 05/04/21 13:59 Range/Units Influenza Type A Antigen NEGATIVE NEGATIVE Influenza Type B Antigen NEGATIVE NEGATIVE White Blood Count 14.6 H 4.3-11.0 10^3/uL Red Blood Count 4.64 3.80-5.11 10^6/uL Hemoglobin 14.1 11.5-16.0 g/dL Hematocrit 40 35-52 % Mean Corpuscular Volume 85 80-99 fL Mean Corpuscular Hemoglobin 30 25-34 pg Mean Corpuscular Hemoglobin Concent 36 32-36 g/dL Red Cell Distribution Width 12.9 10.0-14.5 % Platelet Count 256 130-400 10^3/uL Mean Platelet Volume 9.9 9.0-12.2 fL Immature Granulocyte % (Auto) 0 % Neutrophils (%) (Auto) 84 H 42-75 % Lymphocytes (%) (Auto) 11 L 12-44 % Monocytes (%) (Auto) 5 0-12 % Eosinophils (%) (Auto) 0 0-10 % Basophils (%) (Auto) 0 0-10 % Neutrophils # (Auto) 12.3 H 1.8-7.8 X 10^3 Lymphocytes # (Auto) 1.6 1.0-4.0 X 10^3 Monocytes # (Auto) 0.7 0.0-1.0 X 10^3 Eosinophils # (Auto) 0.0 0.0-0.3 10^3/uL Basophils # (Auto) 0.0 0.0-0.1 10^3/uL Immature Granulocyte # (Auto) 0.1 0.0-0.1 10^3/uL Neutrophils % (Manual) 78 % Lymphocytes % (Manual) 8 % Monocytes % (Manual) 4 % Eosinophils % (Manual) 0 % Basophils % (Manual) 0 % Band Neutrophils 4 % Atypical Lymphocytes 6 % Platelet Estimate NORMAL Blood Morphology Comment NORMAL Sodium Level 132 L 135-145 MMOL/L Potassium Level 3.2 L 3.6-5.0 MMOL/L Chloride Level 95 L 98-107 MMOL/L Carbon Dioxide Level 17 L 21-32 MMOL/L Anion Gap 20 H 5-14 MMOL/L Blood Urea Nitrogen 12 7-18 MG/DL Creatinine 0.95 0.60-1.30 MG/DL Estimat Glomerular Filtration Rate 64 BUN/Creatinine Ratio 13 Glucose Level 238 H 70-105 MG/DL Lactic Acid Level 3.70 *H 2.40 *H 0.50-2.00 MMOL/L Calcium Level 10.7 H 8.5-10.1 MG/DL Corrected Calcium 8.5-10.1 MG/DL Total Bilirubin 0.8 0.1-1.0 MG/DL Aspartate Amino Transf (AST/SGOT) 23 5-34 U/L Alanine Aminotransferase (ALT/SGPT) 11 0-55 U/L Alkaline Phosphatase 81 40-136 U/L Total Protein 8.1 6.4-8.2 GM/DL Albumin 4.6 H 3.2-4.5 GM/DL Lipase 26 8-78 U/L Urine Color YELLOW Urine Clarity CLOUDY Urine pH 6.5 5-9 Urine Specific [place] >=1.030 1.016-1.022 Urine Protein 2+ H NEGATIVE Urine Glucose (UA) TRACE H NEGATIVE Urine Ketones 3+ H NEGATIVE Urine Nitrite NEGATIVE NEGATIVE Urine Bilirubin 1+ H NEGATIVE Urine Urobilinogen 0.2 < = 1.0 MG/DL Urine Leukocyte Esterase NEGATIVE NEGATIVE Urine RBC (Auto) 1+ H NEGATIVE Urine RBC 2-5 H /HPF Urine WBC 5-10 H /HPF Urine Squamous Epithelial Cells 10-25 H /HPF Urine Crystals NONE /LPF Urine Bacteria FEW H /HPF Urine Casts PRESENT /LPF Urine Hyaline Casts 5-10 H /LPF Urine Mucus LARGE H /LPF Urine Culture Indicated NO Urine Opiates Screen NEGATIVE NEGATIVE Urine Oxycodone Screen NEGATIVE NEGATIVE Urine Methadone Screen NEGATIVE NEGATIVE Urine Propoxyphene Screen NEGATIVE NEGATIVE Urine Barbiturates Screen NEGATIVE NEGATIVE Ur Tricyclic Antidepressants Screen NEGATIVE NEGATIVE Urine Phencyclidine Screen NEGATIVE NEGATIVE Urine Amphetamines Screen NEGATIVE NEGATIVE Urine Methamphetamines Screen NEGATIVE NEGATIVE Urine Benzodiazepines Screen NEGATIVE NEGATIVE Urine Cocaine Screen NEGATIVE NEGATIVE Urine Cannabinoids Screen POSITIVE H NEGATIVE Test 05/04/21 14:15 Range/Units Sodium Level 132 L 135-145 MMOL/L Potassium Level 3.3 L 3.6-5.0 MMOL/L Chloride Level 98 98-107 MMOL/L Carbon Dioxide Level 22 21-32 MMOL/L Anion Gap 12 5-14 MMOL/L Blood Urea Nitrogen 11 7-18 MG/DL Creatinine 0.78 0.60-1.30 MG/DL Estimat Glomerular Filtration Rate 80 BUN/Creatinine Ratio 14 Glucose Level 173 H 70-105 MG/DL Calcium Level 9.0 8.5-10.1 MG/DL My Orders Orders - LUBIN,REBECA L DO Cbc With Automated Diff (05/04/21 11:33) Comprehensive Metabolic Panel (05/04/21 11:33) Drug Screen Stat (Urine) (05/04/21 11:33) Lactic Acid Analyzer (05/04/21 11:33) Lipase (05/04/21 11:33) Ua Culture If Indicated (05/04/21 11:33) Influenza A & B Antigens (05/04/21 11:33) Ondansetron Injection (Zofran Injectio (05/04/21 11:45) Ns Iv 1000 Ml (Sodium Chloride 0.9%) (05/04/21 11:33) Famotidine Injection (Pepcid Injection) (05/04/21 11:33) Acute Abd Series (05/04/21 11:47) Ed Iv/Invasive Line Start (05/04/21 12:03) Manual Differential (05/04/21 11:53) Lactated Ringers (Lr 1000 Ml Iv Solution (05/04/21 12:44) Ketorolac Injection (Toradol Injection) (05/04/21 12:53) Diphenhydramine Injection (Benadryl Inje (05/04/21 12:53) Promethazine Injection (Phenergan Injec (05/04/21 12:53) Basic Metabolic Panel (05/04/21 14:04) Lactated Ringers (Lr 1000 Ml Iv Solution (05/04/21 14:51) Medications Given in ED Vital Signs/I&O 05/04/21 05/04/21 11:25 15:51 Temp 36.7 Pulse 80 76 Resp 17 17 B/P (MAP) 147/81 (103) 139/80 Pulse Ox 100 O2 Delivery Room Air Room Air 05/05/21 00:00 Intake Total 3000 ml Balance 3000 ml Progress Progress Note #1: Progress Note Patient states that she has "gastroparesis" and is constantly asking for narcotic pain medicine and Phenergan. I discussed with patient that we will give her some IV hydration and reassess her labs following rehydration. Patient and family state that if they need to be admitted that they will not be admitted to [facility]. I did discuss with them that due to staffing and bed availability at hospitals that we have to admit to any hospital is willing to accept. They report that if that is the case they will just leave and go somewhere else. Patient also admits that she recently started reusing marijuana again however "that has nothing to do with why she just are vomiting over the last 3 days" she admits to daily marijuana use. She reports this to "help with her appetite" Progress Note #2: Time: 15:21 Progress Note Patient symptoms improved with treatment here in the ER. Patient's electrolytes improved severely following 2 L of fluids. She received an additional liter for a total of 3 L in the ER. Patient with known cyclic vomiting. She admits that a warm heat pack makes it nausea better. I do suspect there is some underlying cannabis hyperemesis since the vomiting started with her recent recurrent use of cannabis. Patient should follow with her primary care provider for further outpatient management of her gastroparesis and cyclic vomiting. Patient stable and discharged Diagnostic Imaging Diagonstic Imaging: Xray Plain Films/CT/US/NM/MRI: chest, abdomen Comments Date of Exam:05/04/21 ACUTE ABD SERIES INDICATION: Vomiting for 2 days. TIME OF EXAM: 12:01 PM Heart size normal. Lungs are clear. There is no free air. The bowel gas pattern is nonobstructed. There are surgical clips in the upper abdomen. No pathologic calcifications are seen. IMPRESSION: No acute abnormality is detected. Reviewed: Reviewed by Me, Reviewed/Discussed Departure Impression Primary Impression: Diabetic gastroparesis Additional Impressions: Hypokalemia due to excessive gastrointestinal loss of potassium Cyclic vomiting syndrome Disposition: 01 HOME, SELF-CARE Condition: Stable Departure-Patient Inst. Referrals: SELF,GLORY VEGA (PCP/Family) Primary Care Physician Patient Instructions: Gastroparesis (Delayed Gastric Emptying) (DC), Nausea and Vomiting, Adult ED Scripts Promethazine HCl (Promethazine Tablet) 25 Mg Tablet 25 MG PO Q8H PRN for NAUSEA/VOMITING, #10 TAB Prov: REBECA LUBIN DO 05/04/21 REBECA LUBIN DO May 04, 2021 11:30
[2021-05-04] MEDS ORDERED: NS IV 1000 ML 1,000 ML IV STA (11:33)
[2021-05-04] MEDS ORDERED: FAMOTIDINE 20MG/2ML IV (PEPCID) IV STA (11:33)
[2021-05-04] MEDS ORDERED: ONDANSETRON 4 MG/2 ML (SDV) Z0FRAN IVP ONE (11:45)
[2021-05-04 12:06] LABS: CLARITY,URINE CLOUDY; COLOR,URINE YELLOW; GLUCOSE, URINE (UA) TRACE (NEGATIVE); KETONES,URINE 3+ (NEGATIVE); LEUKOCYTE ESTERASE ,URINE NEGATIVE (NEGATIVE); NITRITE,URINE NEGATIVE (NEGATIVE); PROTEIN,URINE 2+ (NEGATIVE)
[2021-05-04 12:07] LABS: WHITE BLOOD COUNT 14.6 10^3/uL (4.3-11.0)
[2021-05-04 12:08] LABS: BASOPHILS % (AUTO) 0 % (0-10); EOSINOPHILS % (AUTO) 0 % (0-10); HEMATOCRIT 40 % (35-52); HEMOGLOBIN 14.1 g/dL (11.5-16.0); LYMPHOCYTES # (AUTO) 1.6 X 10^3 (1.0-4.0); LYMPHOCYTES % (AUTO) 11 % (12-44); MEAN CORPUSCULAR HEMOGLOBIN 30 pg (25-34); MEAN CORPUSCULAR HGB CONC 36 g/dL (32-36); MEAN CORPUSCULAR VOLUME 85 fL (80-99); MEAN PLATELET VOLUME 9.9 fL (9.0-12.2); MONOCYTES # (AUTO) 0.7 X 10^3 (0.0-1.0); MONOCYTES % (AUTO) 5 % (0-12); NEUTROPHILS # (AUTO) 12.3 X 10^3 (1.8-7.8); NEUTROPHILS % (AUTO) 84 % (42-75); PLATELET COUNT 256 10^3/uL (130-400)
--- NOTE | 2021-05-04 12:35 | Diagnostic Imaging Report ---
INDICATION: Vomiting for 2 days. TIME OF EXAM: 12:01 PM Heart size normal. Lungs are clear. There is no free air. The bowel gas pattern is nonobstructed. There are surgical clips in the upper abdomen. No pathologic calcifications are seen. IMPRESSION: No acute abnormality is detected. Dictated by: Dictated on workstation # [id number]
[2021-05-04 12:38] LABS: BACTERIA,URINE FEW /HPF; BILIRUBIN,URINE 1+ (NEGATIVE); PH,URINE 6.5 (5-9)
[2021-05-04 12:40] LABS: AMPHETAMINE SCREEN, URINE NEGATIVE (NEGATIVE); BARBITURATE SCREEN URINE NEGATIVE (NEGATIVE); BENZODIAZEPINES SCREEN URINE NEGATIVE (NEGATIVE); CANNABINOID SCREEN, URINE POSITIVE (NEGATIVE); COCAINE SCREEN URINE NEGATIVE (NEGATIVE); METHADONE STAT NEGATIVE (NEGATIVE); METHAMPHETAMINE SCREEN URINE S NEGATIVE (NEGATIVE); OPIATE SCREEN URINE NEGATIVE (NEGATIVE); OXYCODONE STAT NEGATIVE (NEGATIVE); PROPOXYPHENE STAT NEGATIVE (NEGATIVE); TRICYCLIC ANTIDEPRESSANTS SCRE NEGATIVE (NEGATIVE)
[2021-05-04 12:43] LABS: ALANINE AMINOTRANSFERASE 11 U/L (0-55); ALKALINE PHOSPHATASE 81 U/L (40-136); BILIRUBIN,TOTAL 0.8 MG/DL (0.1-1.0); BUN/CREATININE RATIO 13; CALCIUM 10.7 MG/DL (8.5-10.1); CARBON DIOXIDE 17 MMOL/L (21-32); CHLORIDE 95 MMOL/L (98-107); CREATININE SERUM 0.95 MG/DL (0.60-1.30); GFR ESTIMATED 64; GLUCOSE 238 MG/DL (70-105); POTASSIUM 3.2 MMOL/L (3.6-5.0); SODIUM 132 MMOL/L (135-145); TOTAL PROTEIN 8.1 GM/DL (6.4-8.2)
[2021-05-04 12:44] LABS: ALBUMIN 4.6 GM/DL (3.2-4.5)
[2021-05-04] MEDS ORDERED: LACTATED RINGERS 1,000 ML IV STA ×2 (12:44→14:51)
[2021-05-04 12:45] LABS: LIPASE 26 U/L (8-78)
[2021-05-04] MEDS ORDERED: PROMETHAZINE INJ 25 MG/ML (PHENERGAN) AMP IVP STA (12:53)
[2021-05-04] MEDS ORDERED: diphenhydrAMINE 50 MG/ML INJ (BENADRYL) IV STA (12:53)
[2021-05-04] MEDS ORDERED: KETOROLAC 30 MG/ML VIAL IVP STA (12:53)
[2021-05-04 12:57] LABS: ATYPICAL LYMPHOCYTES 6 %; BAND NEUTROPHILS 4 %; BASOPHILS % (MANUAL) 0 %; EOSINOPHILS % (MANUAL) 0 %; LYMPHOCYTES % (MANUAL) 8 %; MONOCYTES % (MANUAL) 4 %; NEUTROPHILS % (MANUAL) 78 %; PLATELET ESTIMATE NORMAL; RBC MORPH NORMAL
[2021-05-04 14:38] LABS: CREATININE SERUM 0.78 MG/DL (0.60-1.30); POTASSIUM 3.3 MMOL/L (3.6-5.0)
[2021-05-04] MEDS ORDERED: PROM25TA14 PO (15:20)
[2021-05-04 15:51] VITALS: BP 139/80
== END 2021-05-04 15:51 | disposition home or self-care (01) ==
LOC: EDUNIT# 11:23 → ER FS 11:25
DX: E11.43 Type 2 diabetes mellitus with diabetic autonomic (poly)neuropathy (principal); K31.84 Gastroparesis; E87.6 Hypokalemia; E66.9 Obesity, unspecified; J45.909 Unspecified asthma, uncomplicated; F41.9 Anxiety disorder, unspecified; F32.9 Major depressive disorder, single episode, unspecified; K21.9 Gastro-esophageal reflux disease without esophagitis; Z68.35 Body mass index [BMI] 35.0-35.9, adult; Z91.040 Latex allergy status; Z79.4 Long term (current) use of insulin; Z79.899 Other long term (current) drug therapy
CPT/HCPCS: 36415; 74022; 80048; 80053; 80306; 81000; 83605; 83690; 85007; 85027; 87804

== ENCOUNTER 2021-05-05 15:56 | Emergency (ER) | payer MEDICAID ==
[~2021-05-05] VITALS: Ht 157.4 cm; Wt 86.6 kg
[~2021-05-05 15:56] MED LIST changes: -POTA-51 PO
[2021-05-05] MEDS ORDERED: LACTATED RINGERS 1,000 ML IV STA (16:04)
[2021-05-05] MEDS ORDERED: DROPERIDOL 5 MG/2 ML (INAPSINE) ED ONLY! ONE (16:05)
[2021-05-05] MEDS ORDERED: DROPERIDOL 5 MG/2 ML (INAPSINE) ED ONLY! IV ONE (16:15)
[2021-05-05] MEDS ORDERED: fentaNYL INJ 100 MCG/2 ML AMP IVP STA (16:17)
--- NOTE | 2021-05-05 16:27 | ED Abdominal Pain ---
General Chief Complaint: Abdominal/GI Problems Stated Complaint: COVID EXPOSURE,N/V/D Source of Information: Patient Exam Limitations: No Limitations History of Present Illness Date Seen by Provider: May 05, 2021 Time Seen by Provider: 16:06 Initial Comments Here with nausea, vomiting, diarrhea and exposure to COVID. States her came up positive today. She has had vomiting problems for the last few days but does have cyclic vomiting secondary to gastroparesis from diabetes. She currently has wound VAC in place to her abdomen with healing wound there. She apparently has MRSA infection and has been on linezolid but they are switching that to rifampin. Previously on fentanyl patch for pain but has been off of that due to drug interaction but is restarting that tonight. States that she is unable to take her medicines today because of nausea and vomiting despite taking Phenergan and Zofran at home. States that she gets into the situation sometimes. Does have history of marijuana use but states that she has not used marijuana since last Tuesday and its not the marijuana that is causing the cyclic vomiting but the gastroparesis from diabetes. Denies fever or chills. Denies cough, sore throat or runny nose. Symptoms mainly related to nausea, vomiting and diarrhea. Timing/Duration: 3-4 Days, Changing Over Time, Getting Worse Severity/Quality: Moderate, Cramping Location: Generalized Abdomen Radiation: No Radiation Activities at Onset: None Modifying Factors: Worsens With Eating; Improves With Vomiting Associated Symptoms: No Back Pain, No Chest Pain, No Fever/Chills; Nausea/Vomiting; No Swelling/Mass in Abdomen; Weakness Allergies and Home Medications Allergies Coded Allergies: adhesive tape (Verified Allergy, Unknown, 09/28/18) chlorhexidine (Verified Allergy, Unknown, 07/29/18) fluvoxamine (Verified Allergy, Unknown, 07/29/18) hydromorphone (Verified Allergy, Unknown, 07/29/18) latex (Verified Allergy, Unknown, 07/29/18) meperidine (Verified Allergy, Unknown, 07/29/18) morphine (Verified Allergy, Unknown, 05/19/18) sulfamethoxazole (Verified Allergy, Unknown, 05/19/18) trimethoprim (Verified Allergy, Unknown, 05/19/18) metoclopramide (Unverified Adverse Reaction, Intermediate, Tardive Dyskinesia, 02/02/19) promethazine (Unverified Adverse Reaction, Intermediate, Tardive Dyskinesia, 02/02/19) Patient Home Medication List Home Medication List Reviewed: Yes Acetaminophen (Acetaminophen Extra Strength) 500 Mg Tablet, 500 MG PO Q8H PRN for PAIN-BREAKTHROUGH, (Reported) Entered as Reported by: CALVIN LAGOS on 05/20/18 1037 Albuterol Sulfate (Proair Hfa) 1 Puff Puff, 2 PUFF IH Q4H PRN for SHORTNESS OF BREATH, (Reported) Entered as Reported by: CALVIN LAGOS on 05/20/18 1032 Amlodipine Besylate (Amlodipine Besylate) 10 Mg Tablet, (Reported) Entered as Reported by: TOM RIVERS on 08/06/19 1600 Amoxicillin/Potassium Clav (Amox Tr-K Clv 400-57/5 Susp) 400 Mg/5 Ml Susp.recon, (Reported) Entered as Reported by: TOM RIVERS on 08/06/19 1600 Canagliflozin (Invokana) 100 Mg Tablet, (Reported) Entered as Reported by: TOM RIVERS on 03/18/19 1416 Carvedilol (Carvedilol) 25 Mg Tablet, (Reported) Entered as Reported by: TOM RIVERS on 08/06/19 1600 Clonidine HCl (Clonidine HCl) 0.1 Mg Tablet, (Reported) Entered as Reported by: TOM RIVERS on 08/06/19 1600 Dicyclomine HCl (Dicyclomine HCl) 20 Mg Tablet, 20 MG PO BID Prescribed by: SHAE PICHARDO on 11/06/19 1541 Fluconazole (Diflucan) 100 Mg Tablet, 100 MG PO DAILY Prescribed by: SHAE PICHARDO on 01/04/20 1632 Insulin Aspart (Novolog Flexpen) 300 Units/3 Ml Solution, 7 UNITS SQ AC Prescribed by: OSMAR JEROME on 05/23/18 0955 Insulin Detemir (Levemir Flextouch) 100 Unit/1 Ml Insuln.pen, 20 UNIT SQ HS Prescribed by: OSMAR JEROME on 05/23/18 0955 Ipratropium/Albuterol Sulfate (Iprat-Albut 0.5-3(2.5) mg/3 ml) 3 Ml Ampul.neb, 3 ML IH Q4H PRN for SHORTNESS OF BREATH, (Reported) Entered as Reported by: CALVIN LAGOS on 05/20/18 1033 Ketorolac Tromethamine (Ketorolac Tromethamine) 10 Mg Tablet, 10 MG PO Q6H PRN for PAIN-MODERATE (5-7) Prescribed by: REGINA ROBLES MD on 04/21/19 1344 Lisinopril (Lisinopril) 20 Mg Tablet, 20 MG PO DAILY Prescribed by: OSMAR JEROME on 05/23/18 0955 Lisinopril (Lisinopril) 40 Mg Tablet, (Reported) Entered as Reported by: TOM RIVERS on 08/06/19 1600 Metformin HCl (Metformin HCl ER) 750 Mg Tab.er.24h, 750 MG PO BID, (Reported) Entered as Reported by: CALVIN LAGOS on 05/20/18 1034 Metoclopramide HCl (Metoclopramide HCl) 10 Mg Tablet, 10 MG PO QID, (Reported) Entered as Reported by: CALVIN LAGOS on 05/20/18 1036 Omeprazole (Omeprazole) 20 Mg Capsule.dr, 20 MG PO HS, (Reported) Entered as Reported by: CALVIN LAGOS on 05/20/18 1035 Ondansetron (Ondansetron Odt) 4 Mg Tab.rapdis, 4 MG PO Q4H PRN for NAUSEA/VOMITING-1ST LINE, (Reported) Entered as Reported by: CALVIN LAGOS on 05/20/18 1036 Ondansetron (Ondansetron Odt) 4 Mg Tab.rapdis, 4 MG PO BID Prescribed by: SHAE PICHARDO on 11/06/19 1541 Promethazine HCl (Promethazine Tablet) 25 Mg Tablet, 25 MG PO Q6H PRN for NAUSEA/VOMITING, (Reported) Entered as Reported by: CALVIN LAGOS on 05/20/18 1029 Promethazine HCl (Promethazine Tablet) 25 Mg Tablet, 25 MG PO Q6H PRN for NAUSEA/VOMITING-2ND LINE Prescribed by: ADA IRELAND on 10/09/18 1924 Promethazine HCl (Phenergan) 50 Mg Supp.rect, 50 MG RC BID PRN Prescribed by: ALDO GUZMAN on 03/16/19 1331 Promethazine HCl (Promethazine Tablet) 25 Mg Tablet, 25 MG PO Q8H PRN for NAUSEA/VOMITING Prescribed by: REBECA LUBIN on 05/04/21 1520 Sucralfate (Carafate) 1 Gm Tablet, 1 GM PO QID Prescribed by: ADA IRELAND on 10/09/18 1924 Tramadol HCl (Tramadol HCl) 50 Mg Tablet, 50 MG PO Q6H PRN for PAIN-MILD, (Reported) Entered as Reported by: CALVIN LAGOS on 05/20/18 1030 Trazodone HCl (Trazodone HCl) 150 Mg Tablet, 300 MG PO HS, (Reported) Entered as Reported by: CALVIN LAGOS on 05/20/18 1034 Venlafaxine HCl (Venlafaxine HCl ER) 150 Mg Tab.er.24, 150 MG PO DAILY, (Reporte d) Entered as Reported by: CALVIN LAGOS on 05/20/18 1032 Review of Systems Review of Systems Constitutional: see HPI; No chills, No fever EENTM: No Symptoms Reported Respiratory: Denies Cough, Denies Shortness of Air Cardiovascular: Denies Chest Pain, Denies Edema Gastrointestinal: Diarrhea, Nausea, Vomiting Genitourinary: No Symptoms Reported Musculoskeletal: no symptoms reported Skin: no symptoms reported Psychiatric/Neurological: Anxiety; Denies Headache All Other Systems Reviewed Negative Unless Noted: Yes Past Xqjqgak-Whsltw-Eoyusi Hx Patient Social History Tobacco Use?: No Use of E-Cig and/or Vaping dev: No Substance use?: Yes Substance type: Marijuana Substance frequency: Daily Alcohol Use?: No Pt feels they are or have been: No Immunizations Up To Date First/Initial COVID19 Vaccinat: 10/2020 Second COVID19 Vaccination Demetrius: 10/2020 Seasonal Allergies Seasonal Allergies: Yes Past Medical History Surgery/Hospitalization HX: DM-gastroparesis, chronic abdominal wounds, chronic MRSA infections Surgeries: Yes (Jejunostomy tube 07/26/19; gastric stimulator; pyloroplasty) Gallbladder, Hysterectomy, Orthopedic Respiratory: Yes (Tobaccoism) Asthma Currently Using CPAP: Yes Currently Using BIPAP: No Cardiac: No Neurological: No Female 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 Disorders: Denies 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: Hysterectomy Sexually Transmitted Disease: No HIV/AIDS: No Genitourinary: No Gastrointestinal: Yes (Gastroparesis; Hepatitis C; possible cyclic vomiting) Gastroesophageal Reflux, Ulcer Musculoskeletal: No Endocrine: Yes Diabetes, Insulin dep HEENT: Yes (wears glasses) Hearing Impairment: Denies Cancer: No Psychosocial: Yes (schizoeffective disorder) Anxiety, Depression Integumentary: No Blood Disorders: No Family Medical History Reviewed Nursing Family Hx Physical Exam Vital Signs Vital Signs - First Documented 05/05/21 16:13 Temp 36.3 Pulse 81 Resp 16 B/P (MAP) 193/108 (136) Pulse Ox 99 O2 Delivery Room Air Capillary Refill : Height/Weight/BMI Height: 5'2.00" Weight: 184lbs. 7.0oz. [id number]; 35.00 BMI Method:Actual General Appearance: WD/WN, no apparent distress HEENT: PERRL/EOMI, pharynx normal Neck: full range of motion, supple Respiratory: lungs clear, normal breath sounds Cardiovascular: no murmur, tachycardia Gastrointestinal: normal bowel sounds, non tender, soft, other (Wound VAC central lower right side with good approximation and without significant erythema or drainage noted) Extremities: non-tender, normal inspection Neurologic/Psychiatric: alert, oriented x 3 Skin: normal color, warm/dry Progress/Results/Core Measures Results/Orders Lab Results Laboratory Tests Test 05/05/21 16:20 05/05/21 17:00 05/05/21 17:07 Range/Units White Blood Count 11.1 H 4.3-11.0 10^3/uL Red Blood Count 3.85 3.80-5.11 10^6/uL Hemoglobin 11.7 11.5-16.0 g/dL Hematocrit 35 35-52 % Mean Corpuscular Volume 92 80-99 fL Mean Corpuscular Hemoglobin 30 25-34 pg Mean Corpuscular Hemoglobin Concent 33 32-36 g/dL Red Cell Distribution Width 13.1 10.0-14.5 % Platelet Count 117 L 130-400 10^3/uL Mean Platelet Volume 9.9 9.0-12.2 fL Immature Granulocyte % (Auto) 1 % Neutrophils (%) (Auto) 79 H 42-75 % Lymphocytes (%) (Auto) 14 12-44 % Monocytes (%) (Auto) 6 0-12 % Eosinophils (%) (Auto) 0 0-10 % Basophils (%) (Auto) 0 0-10 % Neutrophils # (Auto) 8.8 H 1.8-7.8 X 10^3 Lymphocytes # (Auto) 1.5 1.0-4.0 X 10^3 Monocytes # (Auto) 0.7 0.0-1.0 X 10^3 Eosinophils # (Auto) 0.0 0.0-0.3 10^3/uL Basophils # (Auto) 0.0 0.0-0.1 10^3/uL Immature Granulocyte # (Auto) 0.1 0.0-0.1 10^3/uL Percent Immature Platelet Fraction 3.7 0.0-7.6 % Sodium Level 134 L 135-145 MMOL/L Potassium Level 3.6 3.6-5.0 MMOL/L Chloride Level 100 98-107 MMOL/L Carbon Dioxide Level 22 21-32 MMOL/L Anion Gap 12 5-14 MMOL/L Blood Urea Nitrogen 13 7-18 MG/DL Creatinine 0.77 0.60-1.30 MG/DL Estimat Glomerular Filtration Rate 81 BUN/Creatinine Ratio 17 Glucose Level 169 H 70-105 MG/DL Calcium Level 8.9 8.5-10.1 MG/DL Corrected Calcium 9.1 8.5-10.1 MG/DL Total Bilirubin 0.4 0.1-1.0 MG/DL Aspartate Amino Transf (AST/SGOT) 26 5-34 U/L Alanine Aminotransferase (ALT/SGPT) 12 0-55 U/L Alkaline Phosphatase 62 40-136 U/L Total Protein 6.5 6.4-8.2 GM/DL Albumin 3.8 3.2-4.5 GM/DL My Orders Orders - NIK ESCOBAR MD Cbc With Automated Diff (05/05/21 16:04) Comprehensive Metabolic Panel (05/05/21 16:04) Hs C Reactive Protein (05/05/21 16:04) Drug Screen Stat (Urine) (05/05/21 16:04) Ed Iv/Invasive Line Start (05/05/21 16:04) Lactated Ringers (Lr 1000 Ml Iv Solution (05/05/21 16:04) Droperidol Inj (Ed Only) (Inapsine Inj ( (05/05/21 16:15) Droperidol Inj (Ed Only) (Inapsine Inj ( (05/05/21 16:05) Fentanyl Inj (Sublimaze Injection) (05/05/21 16:17) Covid 19 Inhouse Test (05/05/21 16:17) Medications Given in ED Current Medications Medications Dose Ordered Sig/Ashley Route Start Time Stop Time Status Last Admin Dose Admin Droperidol 1.25 mg ONCE ONCE IV 05/05/21 16:15 05/05/21 16:16 DC 05/05/21 16:41 1.25 MG Vital Signs/I&O 05/05/21 16:13 Temp 36.3 Pulse 81 Resp 16 B/P (MAP) 193/108 (136) Pulse Ox 99 O2 Delivery Room Air Progress Progress Note : Progress Note Seen and evaluated. IV, labs, UA, LR 1 L bolus, droperidol 1.25 mg IV and fentanyl 50 mcg IV ordered. Monitor patient. 1735: Droperidol was very effective and she is doing much better currently. Potassium 3.6 so that is in good range. She feels comfortable going home. COVID test is pending. Discharged home with return precautions. Patient verbalized understanding instructions and agreement with plan. Departure Impression Primary Impression: Cyclic vomiting syndrome Disposition: HOME, SELF-CARE Condition: Improved Departure-Patient Inst. Decision time for Depature: 17:35 Referrals: GLORY LINARES MD (PCP/Family) Primary Care Physician Patient Instructions: Nausea and Vomiting, Adult Add. Discharge Instructions: All discharge instructions reviewed with patient and/or family. Voiced understanding. Drink plenty of fluids and eat clear or light diet for the next day and then advance as tolerated. You have been tested for COVID-19 and the test results could take 24 hours before they are available. In the meantime, you should remain quarantined as your is positive and you are a contact. You should wear a mask when out in public but you should remain quarantine for at least the next 5 days. If you are positive you will need to remain in isolation for 5 days and then wear a mask for another 5 days to prevent unintentional spread. Continue home medications as previously prescribed. Return for worse pain, fever, vomiting, weakness, breathing problems or other concerns as needed. NIK ESCOBAR MD May 05, 2021 16:27
[2021-05-05 17:29] LABS: BASOPHILS % (AUTO) 0 % (0-10); EOSINOPHILS % (AUTO) 0 % (0-10); HEMATOCRIT 35 % (35-52); HEMOGLOBIN 11.7 g/dL (11.5-16.0); LYMPHOCYTES % (AUTO) 14 % (12-44); MEAN CORPUSCULAR HEMOGLOBIN 30 pg (25-34); MEAN CORPUSCULAR HGB CONC 33 g/dL (32-36); MEAN CORPUSCULAR VOLUME 92 fL (80-99); MEAN PLATELET VOLUME 9.9 fL (9.0-12.2); MONOCYTES % (AUTO) 6 % (0-12); NEUTROPHILS % (AUTO) 79 % (42-75); PLATELET COUNT 117 10^3/uL (130-400); WHITE BLOOD COUNT 11.1 10^3/uL (4.3-11.0)
[2021-05-05 17:30] LABS: POTASSIUM 3.6 MMOL/L (3.6-5.0); SODIUM 134 MMOL/L (135-145)
[2021-05-05 17:30] LABS: LYMPHOCYTES # (AUTO) 1.5 X 10^3 (1.0-4.0); MONOCYTES # (AUTO) 0.7 X 10^3 (0.0-1.0); NEUTROPHILS # (AUTO) 8.8 X 10^3 (1.8-7.8)
[2021-05-05 17:31] LABS: ALANINE AMINOTRANSFERASE 12 U/L (0-55); ALBUMIN 3.8 GM/DL (3.2-4.5); ALKALINE PHOSPHATASE 62 U/L (40-136); BILIRUBIN,TOTAL 0.4 MG/DL (0.1-1.0); BUN/CREATININE RATIO 17; CALCIUM 8.9 MG/DL (8.5-10.1); CARBON DIOXIDE 22 MMOL/L (21-32); CHLORIDE 100 MMOL/L (98-107); CREATININE SERUM 0.77 MG/DL (0.60-1.30); GFR ESTIMATED 81; GLUCOSE 169 MG/DL (70-105); TOTAL PROTEIN 6.5 GM/DL (6.4-8.2)
[2021-05-05 17:37] LABS: AMPHETAMINE SCREEN, URINE NEGATIVE (NEGATIVE); BARBITURATE SCREEN URINE NEGATIVE (NEGATIVE); BENZODIAZEPINES SCREEN URINE NEGATIVE (NEGATIVE); CANNABINOID SCREEN, URINE POSITIVE (NEGATIVE); COCAINE SCREEN URINE NEGATIVE (NEGATIVE); METHADONE STAT NEGATIVE (NEGATIVE); METHAMPHETAMINE SCREEN URINE S NEGATIVE (NEGATIVE); OPIATE SCREEN URINE NEGATIVE (NEGATIVE); OXYCODONE STAT POSITIVE (NEGATIVE); PROPOXYPHENE STAT NEGATIVE (NEGATIVE); TRICYCLIC ANTIDEPRESSANTS SCRE NEGATIVE (NEGATIVE)
[2021-05-05 17:41] VITALS: BP 186/68
[2021-05-05 17:46] LABS: SMEAR SCAN COMMENT OK
== END 2021-05-05 17:45 | disposition home or self-care (01) ==
LOC: EDUNIT# 15:56 → ER FS 15:58
DX: U07.1 COVID-19 (principal); R11.2 Nausea with vomiting, unspecified; K21.9 Gastro-esophageal reflux disease without esophagitis; E11.9 Type 2 diabetes mellitus without complications; F41.9 Anxiety disorder, unspecified; F32.9 Major depressive disorder, single episode, unspecified; Z91.040 Latex allergy status; Z86.14 Personal history of Methicillin resistant Staphylococcus aureus infection; Z79.4 Long term (current) use of insulin; Z79.899 Other long term (current) drug therapy
CPT/HCPCS: 36415; 80053; 80306; 85025; 86141; 87636; 96374; 96375

== ENCOUNTER → 2021-05-05 | Outpatient (CLI) | payer MEDICAID ==
[~2021-05-05] MED LIST changes: +POTA-51 PO
== END ==
LOC: WOUNDCARE 12:58
PROVIDERS: ATTEND Family Medicine
DX: S31.102A Unspecified open wound of abdominal wall, epigastric region without penetration into peritoneal cavity, initial encounter (principal); T81.31XA Disruption of external operation (surgical) wound, not elsewhere classified, initial encounter; L98.492 Non-pressure chronic ulcer of skin of other sites with fat layer exposed; E11.622 Type 2 diabetes mellitus with other skin ulcer; E11.52 Type 2 diabetes mellitus with diabetic peripheral angiopathy with gangrene; E66.01 Morbid (severe) obesity due to excess calories; E11.43 Type 2 diabetes mellitus with diabetic autonomic (poly)neuropathy; K31.84 Gastroparesis; B18.2 Chronic viral hepatitis C; L02.211 Cutaneous abscess of abdominal wall; B95.62 Methicillin resistant Staphylococcus aureus infection as the cause of diseases classified elsewhere; Z68.35 Body mass index [BMI] 35.0-35.9, adult
CPT/HCPCS: 11042

== ENCOUNTER 2021-05-07 18:22 | Emergency (ER) | payer MEDICAID ==
[~2021-05-07] VITALS: Ht 160 cm; Wt 85.0 kg
--- OUTSIDE RECORDS SUMMARY | 2021-05-07 18:29 | XMS REPORT | Clinical Summary ---
Author Author [facility] Organization [facility] Address Unknown Phone Unavailable Care Team Providers Care Mixed Animal Veterinarian Name Role Phone Self, James VEGA PCP [...] the original. [id number] Chronic abdominal wound infection 09/23/2020 Overview: Formatting of this note might be differ ent from the original. Being followed by Dr. Dutta, in [place], [place]. Wound infection after surgery 05/27/2020 Overview: Formatting of this note might be differ ent from the original. Added automatically [facility] [id number] Intra-abdominal infection 05/27/2020 Overview: Formatting of this note might be differ ent from the original. [facility] [id number] Yeast infection 05/12/2020 Severe obesity (BMI >= [...] wound infection of abdomen, subsequent encounter 03/09/2021 [facility] General Surgery - Encounter 03/16/2021 Lenin [...] Barbara 02/11/2021 Documentation Transplant HepatThalia Graves RN [facility] Wound infection after surgery (Primary D [...] Comments Vital Sign 135/72 03/16/2021 3:27 PM DIGITAL INTERN Blood Pressure 94 03/16/2021 3:27 PM DIGITAL INTERN Pulse 36.8 C (98.3 F) 03/16/2021 3:27 PM DIGITAL INTERN Temperature 16 03/16/2021 3:27 PM DIGITAL INTERN Respiratory Rate 94% 03/16/2021 3:27 PM DIGITAL INTERN Oxygen Saturation - - Inhaled Oxygen Concentration 82.1 kg (181 lb) 03/16/2021 4:40 AM DIGITAL INTERN Weight 160 cm (5' 2.99") 03/09/2021 5:23 PM DIGITAL INTERN Height 32.07 03/09/2021 5:23 PM DIGITAL INTERN Body Mass Index Plan of Treatment Health Maintenance Due Date Last Done Comments Diabetes Mellitus 1975 Ophthalmology Exam Lipid Screening 1975 Td/Tdap# 1975 Diabetes Mellitus Foot 06/30/1985 Exam COVID-19 Vaccine (3 - 08/21/2020 07/24/2020, Moderna risk 4-dose 06/26/2020 series) Diabetes Mellitus 09/25/2020 03/27/2020, Hemoglobin A1C 09/11/2019, 07/28/2019, Additional history exists Pneumococcal Vaccine: 01/17/2022 08/15/2018, Pediatrics (0 to 5 Years) 01/17/2017 and At-Risk Patients (6 to 64 Years) (3 of 4 - PPSV23) Influenza Vaccine Completed 03/09/2021, 01/25/2020, 02/21/2019, Additional history exists Implants Device Identifier Shelf Expiration Date Model / Serial / L ot Explanted Type Area Manufactur er 11/19/2021 4351-35 / [id number] / Gastric Enterra Lead Kit(Contains Non-Tissue N/A: Stomach [employer] Implant) 4351-35 - [id number] Implant NEURO Implanted: Qty: 1 on 02/08/2020 by MODULATION Lenin Vieira MD at [facility] Explanted: Qty: 1 on 05/30/2020 by Lenin Vieira MD at [facility] 11/14/2021 4351-35 / [id number] / Gastric Enterra Lead Kit(Contains Non-Tissue N/A: Stomach [employer] Implant) 4351-35 - [id number] Implant NEURO Implanted: Qty: 1 on 02/08/2020 by MODULATION Lenin Vieira MD at [facility] Explanted: Qty: 1 on 05/30/2020 by Lenin Vieira MD at [facility] 04/21/2021 23461 / [id number] / Implant Neurostimulator Enterra Ii Non-Tissue N/A: Stomac h [employer] Gastric 74891 - [id number] Implant NEURO Implanted: Qty: 1 on 02/08/2020 by MODULATION Lenin Vieira MD at [facility] Explanted: Qty: 1 on 05/30/2020 by Lenin Vieira MD at [facility] Procedures Comments Procedure Name Priority Date/Time Associated Diag nosis GLUCOSE POC Timed 03/16/2021 5:26 PM DIGITAL INTERN GLUCOSE POC Timed 03/16/2021 11:49 AM DIGITAL INTERN CBC AND DIFF (MANUAL DIFF Routine 03/16/2021 IF NECESSARY) 10:35 AM DIGITAL INTERN BASIC METABOLIC PANEL Routine 03/16/2021 10:35 AM DIGITAL INTERN GLUCOSE POC Timed 03/16/2021 7:33 AM DIGITAL INTERN GLUCOSE POC Timed 03/15/2021 9:11 PM DIGITAL INTERN GLUCOSE POC Timed 03/15/2021 5:08 PM DIGITAL INTERN GLUCOSE POC Timed 03/15/2021 12:10 PM DIGITAL INTERN GLUCOSE POC Timed 03/15/2021 7:18 AM DIGITAL INTERN GLUCOSE POC Timed 03/14/2021 9:22 PM DIGITAL INTERN GLUCOSE POC Timed 03/14/2021 4:05 PM DIGITAL INTERN GLUCOSE POC Timed 03/14/2021 11:16 AM DIGITAL INTERN PHOSPHORUS Timed 03/14/2021 8:23 AM DIGITAL INTERN MAGNESIUM Timed 03/14/2021 8:23 AM DIGITAL INTERN COMPREHENSIVE METABOLIC Timed 03/14/2021 PANEL 8:23 AM DIGITAL INTERN GLUCOSE POC Timed 03/14/2021 7:41 AM DIGITAL INTERN GLUCOSE POC Timed 03/13/2021 9:08 PM DIGITAL INTERN GLUCOSE POC Timed 03/13/2021 4:00 PM DIGITAL INTERN GLUCOSE POC Timed 03/13/2021 11:09 AM DIGITAL INTERN PHOSPHORUS Timed 03/13/2021 7:52 AM DIGITAL INTERN MAGNESIUM Timed 03/13/2021 7:52 AM DIGITAL INTERN COMPREHENSIVE METABOLIC Timed 03/13/2021 PANEL 7:52 AM DIGITAL INTERN GLUCOSE POC Timed 03/13/2021 7:34 AM DIGITAL INTERN GLUCOSE POC Timed 03/12/2021 9:07 PM DIGITAL INTERN GLUCOSE POC Timed 03/12/2021 5:42 PM DIGITAL INTERN GLUCOSE POC Timed 03/12/2021 11:17 AM DIGITAL INTERN LAVENDER TOP Timed 03/12/2021 8:00 AM DIGITAL INTERN EXTRA TUBES Routine 03/12/2021 8:00 AM DIGITAL INTERN PHOSPHORUS Timed 03/12/2021 7:59 AM DIGITAL INTERN MAGNESIUM Timed 03/12/2021 7:59 AM DIGITAL INTERN COMPREHENSIVE METABOLIC Timed 03/12/2021 PANEL 7:59 AM DIGITAL INTERN GLUCOSE POC Timed 03/12/2021 7:37 AM DIGITAL INTERN GLUCOSE POC Timed 03/11/2021 8:09 PM DIGITAL INTERN GLUCOSE POC Timed 03/11/2021 5:29 PM DIGITAL INTERN GLUCOSE POC Timed 03/11/2021 12:25 PM DIGITAL INTERN GLUCOSE POC Timed 03/11/2021 7:29 AM DIGITAL INTERN PHOSPHORUS Timed 03/11/2021 2:17 AM DIGITAL INTERN MAGNESIUM Timed 03/11/2021 2:17 AM DIGITAL INTERN CBC AND DIFF (MANUAL DIFF Routine 03/11/2021 IF NECESSARY) 2:17 AM DIGITAL INTERN COMPREHENSIVE METABOLIC Timed 03/11/2021 PANEL 2:17 AM DIGITAL INTERN GLUCOSE POC Timed 03/10/2021 8:31 PM DIGITAL INTERN GLUCOSE POC Timed 03/10/2021 5:20 PM DIGITAL INTERN GLUCOSE POC Timed 03/10/2021 2:31 PM DIGITAL INTERN GLUCOSE POC Timed 03/10/2021 11:23 AM DIGITAL INTERN GLUCOSE POC Timed 03/10/2021 7:38 AM DIGITAL INTERN GLUCOSE POC Timed 03/10/2021 3:47 AM DIGITAL INTERN COMPLETE BLOOD COUNT Routine 03/10/2021 12:26 AM DIGITAL INTERN PHOSPHORUS Routine 03/10/2021 12:25 AM DIGITAL INTERN MAGNESIUM Routine 03/10/2021 12:25 AM DIGITAL INTERN BASIC METABOLIC PANEL Routine 03/10/2021 12:25 AM DIGITAL INTERN GLUCOSE POC Timed 03/10/2021 12:07 AM DIGITAL INTERN GLUCOSE POC Timed 03/09/2021 8:39 PM DIGITAL INTERN GLUCOSE POC Timed 03/09/2021 6:31 PM DIGITAL INTERN GLUCOSE POC Timed 03/09/2021 4:40 PM DIGITAL INTERN CULTURE, ANAEROBE Routine 03/09/2021 Wound infect ion after 3:32 PM DIGITAL INTERN surgery Abscess of liver TISSUE PATHOLOGY OR Routine 03/09/2021 Wound infe ction after BIOPSY 3:20 PM DIGITAL INTERN surgery Abscess of liver CULTURE, TISSUE WITH GRAM Routine 03/09/2021 Woun d infection after STAIN (AEROBIC) 3:18 PM DIGITAL INTERN surgery Abscess of liver ANESTHESIA PERIPHERAL IV Routine 03/09/2021 2:45 PM DIGITAL INTERN REPAIR, HERNIA, 03/09/2021 Wound infection aft er INCISIONAL 2:15 PM DIGITAL INTERN surgery Abscess of liver APPLICATION, WOUND VAC 03/09/2021 Wound infectio n after 2:15 PM DIGITAL INTERN surgery Abscess of liver IRRIGATION AND 03/09/2021 Wound infection aft er DEBRIDEMENT, ABDOMEN 2:15 PM DIGITAL INTERN surgery Abscess of liver MAGNESIUM Routine 03/09/2021 12:30 PM DIGITAL INTERN COMPLETE BLOOD COUNT STAT 03/09/2021 12:30 PM DIGITAL INTERN BASIC METABOLIC PANEL STAT 03/09/2021 12:30 PM DIGITAL INTERN SARS-COV-2 (COVID-19) Routine 03/06/2021 Encounte r for 9:51 AM DIGITAL INTERN preoperative screening laboratory testing for COVID-[address] ABDOMEN OUTSIDE IMAGES Routine 02/23/2021 [place] for FOR PACS 1:[address] ABDOMEN OUTSIDE IMAGES Routine 02/23/2021 [place] for FOR PACS 1:09 PM CDT consultation CLOSTRIDIUM DIFFICILE Routine 02/11/2021 Diarrhea , unspecified TOXIN BY PCR 7:00 AM CDT type from Last 3 Months Results * GLUCOSE POC (03/16/2021 5:26 PM DIGITAL INTERN) Only the most recent of 33 results within the time period is included. Glucose POC 122 (H) 70 - 100 mg/dL [facility] Specimen Blood - Venous Performing Organization Address City/[facility] P lidya Number [facility] [address] [place], [place] [address] * CBC and Diff (manual diff if necessary) (03/16/2021 10:35 AM DIGITAL INTERN) Only the most recent of 2 results [...] Specimen Blood - Venous Performing Organization Address City/[facility] P lidya Number [facility] [address] [place], [place] [address] * Basic Metabolic Panel (03/16/2021 10:35 AM DIGITAL INTERN) Only the most recent of 3 results [...] Specimen Blood - Venous Performing Organization Address City/[facility]/ZIP Code P lidya Number [facility] [address] [place], [place] [address] * Phosphorus (03/14/2021 8:23 AM DIGITAL INTERN) Only the most recent of 5 results within the time period is included. Phosphorus 3.8 2.4 - 5.1 mg/dL [facility] Specimen Blood - Venous Performing Organization Address City/State/ZIP Code P lidya Number [facility] [address] [place], [place] [address] * Magnesium (03/14/2021 8:23 AM DIGITAL INTERN) Only the most recent of 6 results within the time period is included. Magnesium 1.70 1.60 - 2.60 mg/dL [facility] Specimen Blood - Venous Performing Organization Address City/[facility]/ZIP Code P lidya Number [facility] [address] [place], [place] [address] * Comprehensive Metabolic Panel (03/14/2021 8:23 AM DIGITAL INTERN) Only the most recent of 4 results [...] U/L SLR L Phosphatase updated 02/15/21 with [facility] conversion to [employer] instrumentation. Alanine 30 0 - 34 U/L [facility] Aminotransferas e Aspartate 34Comment: Reference range 0 - 34 U/L SLR L Aminotransferas updated 02/15/21 with [facility] e conversion to [employer]ell [...] City/State/ZIP Code P lidya Number [facility] [address] [place] [address] * Lavender Top (03/12/2021 8:00 AM DIGITAL INTERN) Specimen Blood - Venous Performing Organization Address City/State/ZIP Code P lidya Number [facility] [address] [place] [address] * Complete Blood Count - In AM (03/10/2021 12:26 AM DIGITAL INTERN) Only the most recent of 2 results [...] Specimen Blood - Venous Performing Organization Address City/[facility]/ZIP Code P lidya Number RL [address] [place] [address] * Culture, Anaerobe (03/09/2021 3:32 PM DIGITAL INTERN) Culture growth No anaerobes isolated at 5 [facility] days Specimen Swab - Abdomen Performing Organization Address City/[facility] P lidya Number RL [address] [place] [address] * Tissue Pathology or Biopsy (03/09/2021 3:20 PM DIGITAL INTERN) Specimen Tissue - Abdomen Narrative [facility] - 03/11/2021 4:15 PM DIGITAL INTERN [facility] Pathology Group SURGICAL PATHOLOGY REPORT PATIENT: MILLER IRIZARRY /AGE/SEX: 1975 (Age: 45) /F ID #: [id number] SUBMITTING PHYSICIAN: Lenin Vieira M.D. CLIENT: [facility] COLLECTED: 03/09/2021 REPORTED: 03/11/2021 SPECIMEN #: [id number] ##################MICROSCOPIC INTERPRETATION################## Abdominal wall, excision: - Fibroadipose tissue with patchy acute inflammation, extensive foreign body giant cell reaction and fat necrosis. - Negative for malignancy. Chapincito Victor MD Report Electronically Signed Out LWD:03/11/21 SRINI(SEAT COVER INSTALLER) CLINICAL HISTORY/IMPRESSION: Abscess. SPECIMEN LABELED: Abdominal wall [...] 1.0 cm. No gross lesions are identified. Metal Tile Setter sections of skin, sinus tract, and abscess are submitted in cassettes [id number]. (PAS) ps1 Professional Component performed by SRINI, a [facility] Pathologist located at [facility], [address] [place] [id number] Technical Component performed at [facility] [address]-Pierre [address]ing, [place] [address] If immunohistochemical stains and or in situ hybridization are cited in this report, the performance characteristics were determined by [facility] in compliance with CLIA'88 regulations. Some of these tests rely on the use of 'analyte specific reagents' and are subject to specific labeling requirements by the FDA. Known positive and negative control tissues demonstrate appropriate staining. Results should be interpreted with caution given the likelihood of false negativity on decalcified specimens. This testing was developed by [facility]. It has not been cleared or approved by the FDA. The FDA has determined that such clearance or approval is not necessary. ###END OF REPORT### Performing Organization Address City/[facility]/ZIP Code P lidya Number MAWD [address] [place], [place] [phone] * Culture, Tissue with Gram Stain (Aerobic) (03/09/2021 3:18 PM DIGITAL INTERN) Culture growth No growth at 4 days [facility] Gram Stain No polymorphonuclear [facility] Result leukocytes seen Gram Stain No organisms seen [facility] Result Specimen Tissue - Abdomen Performing Organization Address [facility]/ZIP Code P lidya Number [facility] [place], [place] [address] * ANESTHESIA PERIPHERAL IV (03/09/2021 2:45 PM DIGITAL INTERN) Modality Anatomical Region Laterality Other Narrative Amaya Arnett AA - 03/09/2021 2:45 PM DIGITAL INTERN Amaya FABIOLA Arnett 03/09/2021 2:46 PM Peripheral IV End time: 03/09/2021 2:29 PM Performed by: resident Staffing Edy Galarza DO IV Placement IV placed Left Foot. Site was prepped with alcohol swabs and no local anesthetic was used. A 22 gauge needle was used with anatomical landmarks technique. * COVID-19 Preprocedure PCR (non-PUI) (03/06/2021 9:51 AM DIGITAL INTERN) SARS-COV-2 PCR Negative Negative [facility] Specimen Swab - NASOPHARYNGEAL SWAB Narrative [facility] - 03/06/2021 2:34 PM DIGITAL INTERN This RT-PCR test has been authorized by the FDA under an Emergency Use Authorization (EUA) for use by authorized laboratories. Performing Organization Address City/[facility]/ZIP Code P lidya Number R [address] [place], [place] [address] * CT Outside images for PACS Abdomen (02/23/2021 1:09 PM CDT) Only the most recent of 2 results within the time period is included. Specimen Performing Organization Address City/[facility] P lidya Number MCKESSON * Clostridium Difficile Toxin by PCR (02/11/2021 7:00 AM CDT) C difficile Not Detected Not Detected [facility] by [facility] Lab Specimen Stool Performing Organization Address City/[facility] Code P lidya Number [facility] [address] [place] [address] LABORATORIES [facility] [address] [place] [address] from Last 3 Months Insurance Type Payer Benefit Subscriber ID Effective Phone Address Plan / Dates Group MEDICAID MANAGED CARE [employer] [id number] 2018-P [address] [place] [id number] [facility] [id number] Advance Directives For more information, please contact: [phone] Patient Metal Tile Setter Explanation Type Date Recorded Advance Directives and Living Will Power of Sales Intern Health Care Directive Date Inactivated Comments Code Status Date Activated Full Code 03/09/2021 1:46 PM 06/03/2020 5:33 PM Full Code 05/30/2020 10:44 AM 05/08/2020 8:06 PM Full Code 05/02/2020 1:30 PM 02/13/2020 3:56 PM Full Code 02/08/2020 3:05 PM 02/08/2020 3:05 PM Full Code 02/08/2020 7:30 AM Care Teams Start Date End Date Mixed Animal Veterinarian Relationship Specialty 10/24/19 James Euceda MD PCP - General Family [address] [place] [id number]
[2021-05-07] MEDS ORDERED: LACTATED RINGERS 1,000 ML IV STA (18:31)
[2021-05-07] MEDS ORDERED: fentaNYL INJ 100 MCG/2 ML AMP IVP STA (18:42)
--- NOTE | 2021-05-07 18:51 | ED General ---
General Chief Complaint: COVID19 Suspect/Confirmed Stated Complaint: COVID+,FAST HEARTRATE,SHALLOW BREATHING Source of Information: Patient Exam Limitations: No Limitations (NIK ESCOBAR MD) History of Present Illness Date Seen by Provider: May 07, 2021 Time Seen by Provider: 18:32 Initial Comments Here with a variety of complaints including being COVID-positive, fast heart rate, nausea, body aches and concerns about her wound. She is also complaining of orange urine. She does have a wound VAC in place in the wound care nurse saw her today and had some milky drainage that she was concerned about. They wanted the ED to look at her wound drainage which does appear to be serous drainage with maybe a tinge of blood. As far as the orange urine, she started rifampin today for MRSA positive blood culture. She was previously on Vioxx but was having problems with that so they switched her. She has not taken rifampin in a long time and did not remember the orange urine. Does complain of nasal congestion, sore throat, nasal drainage, cough and other typical associated symptoms with COVID-19. Timing/Duration: 3-4 Days, Getting Worse Severity: Moderate Associated Systoms: Cough, Fever/Chills, Malaise, Nausea/Vomiting; No Shortness of Air; Weakness (NIK ESCOBAR MD) Allergies and Home Medications Allergies Coded Allergies: adhesive tape (Verified Allergy, Unknown, 09/28/18) chlorhexidine (Verified Allergy, Unknown, 07/29/18) fluvoxamine (Verified Allergy, Unknown, 07/29/18) hydromorphone (Verified Allergy, Unknown, 07/29/18) latex (Verified Allergy, Unknown, 07/29/18) meperidine (Verified Allergy, Unknown, 07/29/18) morphine (Verified Allergy, Unknown, 05/19/18) sulfamethoxazole (Verified Allergy, Unknown, 05/19/18) trimethoprim (Verified Allergy, Unknown, 05/19/18) metoclopramide (Unverified Adverse Reaction, Intermediate, Tardive Dyskinesia, 02/02/19) promethazine (Unverified Adverse Reaction, Intermediate, Tardive Dyskinesia, 02/02/19) Patient Home Medication List Home Medication List Reviewed: Yes (NIK ESCOBAR MD) Acetaminophen (Acetaminophen Extra Strength) 500 Mg Tablet, 500 MG PO Q8H PRN for PAIN-BREAKTHROUGH, (Reported) Entered as Reported by: CALVIN LAGOS on 05/20/18 1037 Albuterol Sulfate (Proair Hfa) 1 Puff Puff, 2 PUFF IH Q4H PRN for SHORTNESS OF BREATH, (Reported) Entered as Reported by: CALVIN ALGOS on 05/20/18 1032 Amlodipine Besylate (Amlodipine Besylate) 10 Mg Tablet, (Reported) Entered as Reported by: TOM RIVERS on 08/06/19 1600 Amoxicillin/Potassium Clav (Amox Tr-K Clv 400-57/5 Susp) 400 Mg/5 Ml Susp.recon, (Reported) Entered as Reported by: TOM RIVERS on 08/06/19 1600 Canagliflozin (Invokana) 100 Mg Tablet, (Reported) Entered as Reported by: TOM RIVERS on 03/18/19 1416 Carvedilol (Carvedilol) 25 Mg Tablet, (Reported) Entered as Reported by: TOM RIVERS on 08/06/19 1600 Clonidine HCl (Clonidine HCl) 0.1 Mg Tablet, (Reported) Entered as Reported by: TOM RIVERS on 08/06/19 1600 Dicyclomine HCl (Dicyclomine HCl) 20 Mg Tablet, 20 MG PO BID Prescribed by: SHAE PICHARDO on 11/06/19 1541 Fluconazole (Diflucan) 100 Mg Tablet, 100 MG PO DAILY Prescribed by: SHAE PICHARDO on 01/04/20 1632 Insulin Aspart (Novolog Flexpen) 300 Units/3 Ml Solution, 7 UNITS SQ AC Prescribed by: OSMAR JEROME on 05/23/18 0955 Insulin Detemir (Levemir Flextouch) 100 Unit/1 Ml Insuln.pen, 20 UNIT SQ HS Prescribed by: OSMAR JEROME on 05/23/18 0955 Ipratropium/Albuterol Sulfate (Iprat-Albut 0.5-3(2.5) mg/3 ml) 3 Ml Ampul.neb, 3 ML IH Q4H PRN for SHORTNESS OF BREATH, (Reported) Entered as Reported by: CALVIN LAGOS on 05/20/18 1033 Ketorolac Tromethamine (Ketorolac Tromethamine) 10 Mg Tablet, 10 MG PO Q6H PRN for PAIN-MODERATE (5-7) Prescribed by: REGINA ROBLES MD on 04/21/19 1344 Lisinopril (Lisinopril) 20 Mg Tablet, 20 MG PO DAILY Prescribed by: OSMAR JEROME on 05/23/18 0955 Lisinopril (Lisinopril) 40 Mg Tablet, (Reported) Entered as Reported by: TOM RIVERS on 08/06/19 1600 Metformin HCl (Metformin HCl ER) 750 Mg Tab.er.24h, 750 MG PO BID, (Reported) Entered as Reported by: CALVIN LAGOS on 05/20/18 1034 Metoclopramide HCl (Metoclopramide HCl) 10 Mg Tablet, 10 MG PO QID, (Reported) Entered as Reported by: CALVIN LAGOS on 05/20/18 1036 Omeprazole (Omeprazole) 20 Mg Capsule.dr, 20 MG PO HS, (Reported) Entered as Reported by: CALVIN LAGOS on 05/20/18 1035 Ondansetron (Ondansetron Odt) 4 Mg Tab.rapdis, 4 MG PO Q4H PRN for NAUSEA/VOMITING-1ST LINE, (Reported) Entered as Reported by: CALVIN LAGOS on 05/20/18 1036 Ondansetron (Ondansetron Odt) 4 Mg Tab.rapdis, 4 MG PO BID Prescribed by: SHAE PICHARDO on 11/06/19 1541 Promethazine HCl (Promethazine Tablet) 25 Mg Tablet, 25 MG PO Q6H PRN for NAUSEA/VOMITING, (Reported) Entered as Reported by: CALVIN LAGOS on 05/20/18 1029 Promethazine HCl (Promethazine Tablet) 25 Mg Tablet, 25 MG PO Q6H PRN for NAUSEA/VOMITING-2ND LINE Prescribed by: ADA IRELAND on 10/09/18 1924 Promethazine HCl (Phenergan) 50 Mg Supp.rect, 50 MG RC BID PRN Prescribed by: ALDO GUZMAN on 03/16/19 1331 Promethazine HCl (Promethazine Tablet) 25 Mg Tablet, 25 MG PO Q8H PRN for NAUSEA/VOMITING Prescribed by: REBECA LUBIN on 05/04/21 1520 Sucralfate (Carafate) 1 Gm Tablet, 1 GM PO QID Prescribed by: ADA IRELAND on 10/09/18 1924 Tramadol HCl (Tramadol HCl) 50 Mg Tablet, 50 MG PO Q6H PRN for PAIN-MILD, (Reported) Entered as Reported by: CALVIN LAGOS on 05/20/18 1030 Trazodone HCl (Trazodone HCl) 150 Mg Tablet, 300 MG PO HS, (Reported) Entered as Reported by: CALVIN LAGOS on 05/20/18 1034 Venlafaxine HCl (Venlafaxine HCl ER) 150 Mg Tab.er.24, 150 MG PO DAILY, (Reported) Entered as Reported by: CALVIN LAGOS on 05/20/18 1032 Review of Systems Review of Systems Constitutional: see HPI, chills, fever EENTM: nose congestion, throat pain Respiratory: cough, short of breath Cardiovascular: no symptoms reported Gastrointestinal: nausea; No vomiting Genitourinary: see HPI Musculoskeletal: muscle pain; No muscle weakness Skin: see HPI; No change in color; lesions Psychiatric/Neurological: No Symptoms Reported (NIK ESCOBAR MD) All Other Systems Reviewed Negative Unless Noted: Yes (NIK ESCOBAR MD) Past Tncvqwi-Jbgqzg-Svwlvx Hx Patient Social History Tobacco Use?: No Substance use?: Yes Substance type: Marijuana Alcohol Use?: No (NIK ESCOBAR MD) Immunizations Up To Date First/Initial COVID19 Vaccinat: 10/2020 Second COVID19 Vaccination Demetrius: 10/2020 (NIK ESCOBAR MD) Seasonal Allergies Seasonal Allergies: Yes (NIK ESCOBAR MD) Past Medical History Surgery/Hospitalization HX: DM-gastroparesis, chronic abdominal wounds, chronic MRSA infections Surgeries: Yes (Jejunostomy tube 07/26/19; gastric stimulator; pyloroplasty) Gallbladder, Hysterectomy, Orthopedic Respiratory: Yes (Tobaccoism) Asthma Currently Using CPAP: Yes Currently Using BIPAP: No Cardiac: No Neurological: No Female 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 Disorders: Denies 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 Sexually Transmitted Disease: No HIV/AIDS: No Genitourinary: No Gastrointestinal: Yes (Gastroparesis; Hepatitis C; possible cyclic vomiting) Gastroesophageal Reflux, Ulcer Musculoskeletal: No Endocrine: Yes Diabetes, Insulin dep HEENT: Yes (wears glasses) Hearing Impairment: Denies Cancer: No Psychosocial: Yes (schizoeffective disorder) Anxiety, Depression Integumentary: No Blood Disorders: No (NIK ESCOBAR MD) Family Medical History Reviewed Nursing Family Hx (NIK ESCOBAR MD) Physical Exam Vital Signs Vital Signs - First Documented 05/07/21 18:59 Temp 37.3 Pulse 108 Resp 16 B/P (MAP) 150/86 (107) O2 Delivery Room Air (ARCHANA GIL) Vital Signs Capillary Refill : (NIK ESCOBAR MD) Height, Weight, BMI Height: 5'2.00" Weight: 184lbs. 7.0oz. 83.704617cg; 34.00 BMI Method:Actual General Appearance: No Apparent Distress, WD/WN HEENT: PERRL/EOMI, Pharynx Normal Neck: Non Tender, Supple Respiratory: Lungs Clear, Normal Breath Sounds Cardiovascular: No Murmur, Tachycardia Gastrointestinal: Non Tender, Soft, Other (Wound VAC in place to lower abdomen with skin border that is normal appearing tissue without purulent drainage. Serous drainage noted in wound VAC.) Back: Normal Inspection, No CVA Tenderness, No Vertebral Tenderness Extremity: Normal Range of Motion, Non Tender Neurologic/Psychiatric: Alert, Oriented x3 Skin: Warm/Dry, Other (Wound appearance as above) (NIK ESCOBAR MD) Progress/Results/Core Measures Suspected Sepsis SIRS Temperature: Pulse: Respiratory Rate: Blood Pressure / Mean: (NIK ESCOBAR MD) Results/Orders Lab Results Laboratory Tests Test 05/07/21 18:45 Range/Units White Blood Count 6.5 4.3-11.0 10^3/uL Red Blood Count 3.84 3.80-5.11 10^6/uL Hemoglobin 11.9 11.5-16.0 g/dL Hematocrit 34 L 35-52 % Mean Corpuscular Volume 88 80-99 fL Mean Corpuscular Hemoglobin 31 25-34 pg Mean Corpuscular Hemoglobin Concent 35 32-36 g/dL Red Cell Distribution Width 13.1 10.0-14.5 % Platelet Count 156 130-400 10^3/uL Mean Platelet Volume 10.1 9.0-12.2 fL Immature Granulocyte % (Auto) 0 % Neutrophils (%) (Auto) 69 42-75 % Lymphocytes (%) (Auto) 14 12-44 % Monocytes (%) (Auto) 16 H 0-12 % Eosinophils (%) (Auto) 1 0-10 % Basophils (%) (Auto) 0 0-10 % Neutrophils # (Auto) 4.5 1.8-7.8 X 10^3 Lymphocytes # (Auto) 0.9 L 1.0-4.0 X 10^3 Monocytes # (Auto) 1.0 0.0-1.0 X 10^3 Eosinophils # (Auto) 0.1 0.0-0.3 10^3/uL Basophils # (Auto) 0.0 0.0-0.1 10^3/uL Immature Granulocyte # (Auto) 0.0 0.0-0.1 10^3/uL Erythrocyte Sedimentation Rate 17 0-20 MM/HR Sodium Level 133 L 135-145 MMOL/L Potassium Level 2.9 L 3.6-5.0 MMOL/L Chloride Level 99 98-107 MMOL/L Carbon Dioxide Level 24 21-32 MMOL/L Anion Gap 10 5-14 MMOL/L Blood Urea Nitrogen 10 7-18 MG/DL Creatinine 0.81 0.60-1.30 MG/DL Estimat Glomerular Filtration Rate 91 BUN/Creatinine Ratio 12 Glucose Level 161 H 70-105 MG/DL Calcium Level 8.4 L 8.5-10.1 MG/DL Corrected Calcium 8.6 8.5-10.1 MG/DL Total Bilirubin 0.4 0.1-1.0 MG/DL Aspartate Amino Transf (AST/SGOT) 23 5-34 U/L Alanine Aminotransferase (ALT/SGPT) 12 0-55 U/L Alkaline Phosphatase 66 40-136 U/L C-Reactive Protein < 0.30 <0.50 MG/DL Total Protein 6.3 L 6.4-8.2 GM/DL Albumin 3.8 3.2-4.5 GM/DL Smear Scan OK (ARCHANA GIL) My Orders Orders - ARCHANA GIL Potassium Chloride (Tablet) (K Dur Table (05/07/21 20:00) (ARCHANA GIL) Vital Signs/I&O 05/07/21 18:59 Temp 37.3 Pulse 108 Resp 16 B/P (MAP) 150/86 (107) O2 Delivery Room Air (ARCHANA GIL) Vital Signs/I&O Capillary Refill : (NIK ESCOBAR MD) Progress Note : Progress Note Seen and evaluated. IV, labs, chest x-ray, LR 1 L bolus, Zofran 4 mg IV, fentanyl 50 mcg IV ordered. 185: Care transferred to Dr. GIL pending labs and x-ray. (NIK ESCOBAR MD) Progress Note #1: Time: 19:06 Progress Note Assumed care of the patient at shift change. I agree with the above documented history and physical exam and plan. Chest x-ray a most likely consistent with viral pneumonia, COVID is pending. Labs nonconcerning. Patient's oxygenation is 97% on room air, nonlabored breathing with aseptic vital signs. Heart rate i n the 80s. After her fluids pain meds and nausea medicines we will reexamine her abdomen. We will then help her determine what to do next. Progress Note #2: Time: 20:02 Progress Note Patient's labs were reviewed with her. We gave her a dose of potassium and will put her on a couple weeks worth of replacement potassium. She can follow-up in a week or two with Dr. LINARES and recheck her labs. We examined her wound which was intact, under vacuum and without any significant erythema induration or fluctuance. We encouraged her to follow-up with her landing support specialist. Patient had no further needs to be met in the ER at this time. She is feeling much better she is. She states she has pain and nausea medicine at home. (ARCHANA GIL) Diagnostic Imaging Diagonstic Imaging: Xray Plain Films/CT/US/NM/MRI: chest Comments NAME: [facility]ILL[facility]ARRY [facility] REC#: [id number] PT STATUS: REG ER : 1975 PHYSICIAN: NIK ESCOBAR MD ADMIT DATE: 05/07/21/ER FS Signed Date of Exam:05/07/21 CHEST 1 VIEW AP/PA ONLY INDICATION: Cough, Covid positive. COMPARISON: 08/09/2018. EXAMINATION: Single view of the chest. FINDINGS: Subtle infiltrate in the mid left lung. The right lung is clear. The heart is normal. There is no pneumothorax. Osseous structures are normal. IMPRESSION: Subtle infiltrate in the mid left lung. Dictated by: Dictated on workstation # [id number] Dict: 05/07/214 Trans: 05/07/211899 [id number] Interpreted by: NAEEM ARMANDO Electronically signed by: NAEEM ARMANDO 05/07/211899 Reviewed: Reviewed by Me (ARCHANA GIL) Departure Impression Primary Impression: Visit for wound check Additional Impressions: Dehydration COVID-19 Hypokalemia due to excessive gastrointestinal loss of potassium Disposition: HOME, SELF-CARE Condition: Stable Departure-Patient Inst. Decision time for Depature: 20:03 (ARCHANA GIL) Referrals: GLORY LINARES MD (PCP/Family) Primary Care Physician Patient Instructions: COVID-19 Overview, Dehydration, Adult (DC) Add. Discharge Instructions: Return to the ER for oxygen saturations less than 90%, dehydration, intractable vomiting or other worrisome symptoms. Potassium take with food 20 klever-equivalents twice a day for a week followed by once a day for 2 weeks. Recheck your labs with your primary care doctor in the next 1 to 2 weeks. All discharge instructions reviewed with patient and/or family. Voiced understanding. Scripts Potassium Chloride (Potassium Chloride) 20 Meq Tablet.er 20 MEQ PO BID for 21 Days, #28 TAB 0 Refills BID x 1 week Daily x 2 week Prov: ARCHANA GIL 05/07/21 Copy Copies To 1: GLORY LINARES MD, TIMOTHY D MD May 07, 2021 18:51 ARCHANA GIL May 07, 2021 19:07
--- NOTE | 2021-05-07 18:58 | Diagnostic Imaging Report ---
INDICATION: Cough, Covid positive. COMPARISON: 08/09/2018. EXAMINATION: Single view of the chest. FINDINGS: Subtle infiltrate in the mid left lung. The right lung is clear. The heart is normal. There is no pneumothorax. Osseous structures are normal. IMPRESSION: Subtle infiltrate in the mid left lung. Dictated by: Dictated on workstation # [id number]
[2021-05-07 19:00] LABS: BASOPHILS % (AUTO) 0 % (0-10); EOSINOPHILS % (AUTO) 1 % (0-10); HEMATOCRIT 34 % (35-52); HEMOGLOBIN 11.9 g/dL (11.5-16.0); LYMPHOCYTES % (AUTO) 14 % (12-44); MEAN CORPUSCULAR HEMOGLOBIN 31 pg (25-34); MEAN CORPUSCULAR HGB CONC 35 g/dL (32-36); MEAN CORPUSCULAR VOLUME 88 fL (80-99); MEAN PLATELET VOLUME 10.1 fL (9.0-12.2); MONOCYTES % (AUTO) 16 % (0-12); NEUTROPHILS % (AUTO) 69 % (42-75); PLATELET COUNT 156 10^3/uL (130-400); WHITE BLOOD COUNT 6.5 10^3/uL (4.3-11.0)
[2021-05-07 19:01] LABS: EOSINOPHILS # (AUTO) 0.1 10^3/uL (0.0-0.3); LYMPHOCYTES # (AUTO) 0.9 X 10^3 (1.0-4.0); NEUTROPHILS # (AUTO) 4.5 X 10^3 (1.8-7.8)
[2021-05-07 19:11] LABS: SMEAR SCAN COMMENT OK
[2021-05-07 19:25] LABS: ERYTHROCYTE SEDIMENTATION RATE 17 MM/HR (0-20)
[2021-05-07 19:26] LABS: POTASSIUM 2.9 MMOL/L (3.6-5.0); SODIUM 133 MMOL/L (135-145)
[2021-05-07 19:27] LABS: ALANINE AMINOTRANSFERASE 12 U/L (0-55); ALBUMIN 3.8 GM/DL (3.2-4.5); ALKALINE PHOSPHATASE 66 U/L (40-136); BUN/CREATININE RATIO 12; CALCIUM 8.4 MG/DL (8.5-10.1); CARBON DIOXIDE 24 MMOL/L (21-32); CHLORIDE 99 MMOL/L (98-107); CREATININE SERUM 0.81 MG/DL (0.60-1.30); GFR ESTIMATED 91; GLUCOSE 161 MG/DL (70-105); TOTAL PROTEIN 6.3 GM/DL (6.4-8.2)
[2021-05-07 19:28] LABS: BILIRUBIN,TOTAL 0.4 MG/DL (0.1-1.0)
[2021-05-07] MEDS ORDERED: KCL 20 MEQ TAB (K-DUR) PO ONE (20:00)
[2021-05-07] MEDS ORDERED: POTA-51 PO (20:05)
[2021-05-07 20:07] VITALS: BP 168/83
== END 2021-05-07 20:14 | disposition home or self-care (01) ==
LOC: EDUNIT# 18:22 → ER FS 18:24
DX: U07.1 COVID-19 (principal); E86.0 Dehydration; E87.6 Hypokalemia; K21.9 Gastro-esophageal reflux disease without esophagitis; E11.9 Type 2 diabetes mellitus without complications; F41.9 Anxiety disorder, unspecified; F32.9 Major depressive disorder, single episode, unspecified; Z91.040 Latex allergy status; Z86.16 Personal history of COVID-19; Z79.899 Other long term (current) drug therapy; Z79.4 Long term (current) use of insulin
CPT/HCPCS: 36415; 71045; 80053; 85025; 85652; 86141

== ENCOUNTER → 2021-05-11 | Outpatient (CLI) | payer MEDICAID ==
[~2021-05-11] MED LIST changes: +POTA-51 PO
== END ==
LOC: WOUNDCARE 13:19
PROVIDERS: ATTEND Family Medicine
DX: S31.102A Unspecified open wound of abdominal wall, epigastric region without penetration into peritoneal cavity, initial encounter (principal); T81.31XA Disruption of external operation (surgical) wound, not elsewhere classified, initial encounter; L98.492 Non-pressure chronic ulcer of skin of other sites with fat layer exposed; E11.622 Type 2 diabetes mellitus with other skin ulcer; E66.01 Morbid (severe) obesity due to excess calories; E11.43 Type 2 diabetes mellitus with diabetic autonomic (poly)neuropathy; K31.84 Gastroparesis; B18.2 Chronic viral hepatitis C; L02.211 Cutaneous abscess of abdominal wall; B95.62 Methicillin resistant Staphylococcus aureus infection as the cause of diseases classified elsewhere; E11.52 Type 2 diabetes mellitus with diabetic peripheral angiopathy with gangrene
CPT/HCPCS: 11042; 97605

== ENCOUNTER 2021-05-17 13:34 | Emergency (ER) | payer MEDICAID ==
[~2021-05-17] VITALS: Ht 160 cm; Wt 85.0 kg
--- OUTSIDE RECORDS SUMMARY | 2021-05-17 13:39 | XMS REPORT | Encounter Summary ---
Author Author [facility] Organization [facility] Address Unknown Phone Unavailable Care Team Providers Care Licensed Sales Producer Name Role Phone James Euceda MD PCP Reason for Visit * Reason Onset Date Comments Follow-up 05/15/2021 To see how she is d oing. Encounter Details Care Team Description Date Type Department Lenin Vieira MD [address] [place], [place] [id number] Follow-up (To see how she is doing.) 05/15/2021 Telephone [facility] [address] [place], [place] [id number] Social History Date Tobacco Use Types Packs/Day [...] encounter Miscellaneous Notes * Telephone Encounter - Lenin Vieira MD - 05/15/2021 6:12 PM BALANCE STAFF STAKER I called her to see how she is doing. She is getting dehydrated. She is trying to eat but still has nausea, Taking Phenergan. Also on Zofran. Wound is still not closed. About 5 separate openings. Needs to get CT scan which needs authorization. She will need to have another surgery and create a single wound. Lenin Vieira MD NCE STAFF STAKER documented in this encounter Plan of Treatment Care Team Description Date Type Specialty 10/10/2021 [place] [address] [facility] [address] [place] [address] 10/13/2021 Hospital Gastroenterology [place] [address] [facility] [address] [place] [address] ESOPHAGOGASTRODUODENOSCOPY, WITH COLONOS COPY 10/13/2021 Surgery Gastroenterology Date/Time Name Priority Associated Diagnose s 10/13/2021 10:00 AM CDT ESOPHAGOGASTRODUODENOSCOPY, WITH Personal history o f COLONOSCOPY polyps , diarrhea documented as of this encounter Visit Diagnoses Not on filedocumented in this encounter Care Teams Start Date End Date Licensed Sales Producer Relationship Specialty 10/24/19 James Euceda MD PCP - General [address] [phone] documented as of this encounter
--- OUTSIDE RECORDS SUMMARY | 2021-05-17 13:39 | XMS REPORT | Encounter Summary ---
Author Author [facility] Organization [facility] Address Unknown Phone Unavailable Care Team Providers Care Content Production Specialist Name Role Phone Self, James VEGA PCP Encounter Details Care Team Description Date Type Department Jocelynn Mack RN 05/15/2021 Telephone [facility] [address] [place] [address] Social History Date Tobacco Use Types Packs/Day [...] encounter Miscellaneous Notes * Telephone Encounter - Jocelynn Mack RN - 05/15/2021 3:13 PM BASEBALL INSPECTOR Pt called very tearful- lokesh AB + with out side provider Called pt discussed results- HCV PCR QT <15 not detected- reassured pt that the AB will always be pos- she is still 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- please send a copy of the tests so we have them on file BALL INSPECTOR documented in this encounter Plan of Treatment Care Team Description Date Type Specialty 10/10/2021 [place] [address] [facility] [address] [place] [address] 10/13/2021 Hospital Gastroenterology [place] [address] [place] [address] ESOPHAGOGASTRODUODENOSCOPY, WITH COLONOS COPY 10/13/2021 Surgery Gastroenterology Date/Time Name Priority Associated Diagnose s 10/13/2021 10:00 AM CDT ESOPHAGOGASTRODUODENOSCOPY, WITH Personal history o f COLONOSCOPY polyps , diarrhea documented as of this encounter Visit Diagnoses Not on filedocumented in this encounter Care Teams Start Date End Date Content Production Specialist Relationship Specialty 10/24/19 James Euceda MD PCP - General [address] [phone] documented as of this encounter
--- OUTSIDE RECORDS SUMMARY | 2021-05-17 13:39 | XMS REPORT | Clinical Summary ---
Author Author [facility] Organization [facility] Address Unknown Phone Unavailable Care Team Providers Care Ios Architect Name Role Phone Self, James VEGA PCP [...] 1 the skin every 3 (three) days. Active polyethylene glycol Starting at 4000 mL 0 (GOLYTELY) 236-22.74-6.74 noon on day 2 -5.86 gram solution prior to procedure, drink 8 ounces every 30 minutes until all gone or stools are clear. May add flavor packet. 03/16/2021 Discontinued (Other) lidocaine (GLYDO) 2 % Apply 1 50 mL 0 02/23 jelly application 1 topically daily. Active Problems Problem Noted Date Class 1 obesity in adult 03/25/2021 Abscess of liver 02/24/2021 Overview: Formatting of this note might be differ ent from the original. Added automatically from request for vaughn damien [id number] Chronic abdominal wound infection 09/23/2020 Overview: Formatting of this note might be differ ent from the original. Being followed by Dr. Dutta, in [place], [place]. Wound infection after surgery 05/27/2020 Overview: Formatting of this note might be differ ent from the original. Added automatically from request for vaughn damien [id number] Intra-abdominal infection 05/27/2020 Overview: Formatting of this note might be differ ent from the original. Added automatically from request for vaughn damien [id number] Yeast infection 05/12/2020 Severe obesity (BMI >= [...] Description Date Type Specialty Lenin Vieira MD Follow-up (To see how she is doing.) 05/15/2021 Telephone Transplant Hepatolo gy Jocelynn Mack RN 05/15/2021 Telephone Transplant Hepatolo gy Sabine Narvaez MA Procedure Instructions 05/11/2021 Telephone Gastroenterology Lenin Vieira MD 03/31/2021 Documentation Transplant Lenin [...] Lavonne Correa LPN 03/18/2021 Telephone Transplant Hepatolo gy Wes Durbin MD Johnson, Kenneth S 03/09/2021 Anesthesia General [...] wound infection of abdomen, subsequent encounter 03/09/2021 [facility] General Surgery - Encounter 03/16/2021 Lenin [...] Transplant Lavonne Dai LPN 02/23/2021 Telephone Transplant Hepatolo gy Lenin Vieira MD 02/23/2021 Documentation Transplant Lenin Vieira MD Follow-up on test results 02/21/2021 Telephone Transplant from Last 3 Months Immunizations Name Administration [...] Comments Vital Sign 135/72 03/16/2021 3:27 PM REGISTERED PHARMACY TECHNICIAN Blood Pressure 94 03/16/2021 3:27 PM REGISTERED PHARMACY TECHNICIAN Pulse 36.8 C (98.3 F) 03/16/2021 3:27 PM REGISTERED PHARMACY TECHNICIAN Temperature 16 03/16/2021 3:27 PM REGISTERED PHARMACY TECHNICIAN Respiratory Rate 94% 03/16/2021 3:27 PM REGISTERED PHARMACY TECHNICIAN Oxygen Saturation - - Inhaled Oxygen Concentration 82.1 kg (181 lb) 03/16/2021 4:40 AM REGISTERED PHARMACY TECHNICIAN Weight 160 cm (5' 2.99") 03/09/2021 5:23 PM REGISTERED PHARMACY TECHNICIAN Height 32.07 03/09/2021 5:23 PM REGISTERED PHARMACY TECHNICIAN Body Mass Index Plan of Treatment Care Team Description Date Type Specialty 10/10/2021 [place] [address] [place], [place] [id number] 10/13/2021 Hospital [place]astroenter[place] [address] [place], [place] [address] ESOPHAGOGASTRODUODENOSCOPY, WITH COLONOS COPY 10/13/2021 Surgery Gastroenterology Date/Time Name Priority Associated Diagnose s 10/13/2021 10:00 AM CDT ESOPHAGOGASTRODUODENOSCOPY, WITH Personal history o f COLONOSCOPY polyps , diarrhea Health Maintenance Due Date Last Done Comments Diabetes Mellitus 1975 Ophthalmology Exam Lipid Screening 1975 Td/Tdap# 1975 Diabetes Mellitus Foot 06/30/1985 Exam Colonoscopy 06/30/2020 COVID-19 Vaccine (3 - 08/21/2020 07/24/2020, Moderna [...] Type Area Manufactur er 11/19/2021 4351-35 / [id number] / Gastric Enterra Lead Kit(Contains Non-Tissue N/A: Stomach [employer] Implant) 4351-35 - [id number] Implant NEURO Implanted: Qty: 1 on 02/08/2020 by Lenin Soto MD at [facility] Explanted: Qty: 1 on 05/30/2020 by Lenin Vieira MD at [facility] 11/14/2021 4351-35 / [id number] / Gastric Enterra Lead Kit(Contains Non-Tissue N/A: Stomach [employer] Implant) 4351-35 - [id number] Implant NEURO Implanted: Qty: 1 on 02/08/2020 by Lenin Soto MD at [facility] Explanted: Qty: 1 on 05/30/2020 by Lenin Vieira MD at [facility] 04/21/2021 01924 / [id number] / Implant Neurostimulator Enterra Ii Non-Tissue N/A: Stomac h [employer] Gastric 72036 - [id number] Implant NEURO Implanted: Qty: 1 on 02/08/2020 by Lenin Soto MD at [facility] Explanted: Qty: 1 on 05/30/2020 by Lenin Vieira MD at [facility] Procedures Comments Procedure Name Priority Date/Time Associated Diag nosis GLUCOSE POC Timed 03/16/2021 5:26 PM REGISTERED PHARMACY TECHNICIAN GLUCOSE POC Timed 03/16/2021 11:49 AM REGISTERED PHARMACY TECHNICIAN CBC AND DIFF (MANUAL DIFF Routine 03/16/2021 IF NECESSARY) 10:35 AM REGISTERED PHARMACY TECHNICIAN BASIC METABOLIC PANEL Routine 03/16/2021 10:35 AM REGISTERED PHARMACY TECHNICIAN GLUCOSE POC Timed 03/16/2021 7:33 AM REGISTERED PHARMACY TECHNICIAN GLUCOSE POC Timed 03/15/2021 9:11 PM REGISTERED PHARMACY TECHNICIAN GLUCOSE POC Timed 03/15/2021 5:08 PM REGISTERED PHARMACY TECHNICIAN GLUCOSE POC Timed 03/15/2021 12:10 PM REGISTERED PHARMACY TECHNICIAN GLUCOSE POC Timed 03/15/2021 7:18 AM REGISTERED PHARMACY TECHNICIAN GLUCOSE POC Timed 03/14/2021 9:22 PM REGISTERED PHARMACY TECHNICIAN GLUCOSE POC Timed 03/14/2021 4:05 PM REGISTERED PHARMACY TECHNICIAN GLUCOSE POC Timed 03/14/2021 11:16 AM REGISTERED PHARMACY TECHNICIAN PHOSPHORUS Timed 03/14/2021 8:23 AM REGISTERED PHARMACY TECHNICIAN MAGNESIUM Timed 03/14/2021 8:23 AM REGISTERED PHARMACY TECHNICIAN COMPREHENSIVE METABOLIC Timed 03/14/2021 PANEL 8:23 AM REGISTERED PHARMACY TECHNICIAN GLUCOSE POC Timed 03/14/2021 7:41 AM REGISTERED PHARMACY TECHNICIAN GLUCOSE POC Timed 03/13/2021 9:08 PM REGISTERED PHARMACY TECHNICIAN GLUCOSE POC Timed 03/13/2021 4:00 PM REGISTERED PHARMACY TECHNICIAN GLUCOSE POC Timed 03/13/2021 11:09 AM REGISTERED PHARMACY TECHNICIAN PHOSPHORUS Timed 03/13/2021 7:52 AM REGISTERED PHARMACY TECHNICIAN MAGNESIUM Timed 03/13/2021 7:52 AM REGISTERED PHARMACY TECHNICIAN COMPREHENSIVE METABOLIC Timed 03/13/2021 PANEL 7:52 AM REGISTERED PHARMACY TECHNICIAN GLUCOSE POC Timed 03/13/2021 7:34 AM REGISTERED PHARMACY TECHNICIAN GLUCOSE POC Timed 03/12/2021 9:07 PM REGISTERED PHARMACY TECHNICIAN GLUCOSE POC Timed 03/12/2021 5:42 PM REGISTERED PHARMACY TECHNICIAN GLUCOSE POC Timed 03/12/2021 11:17 AM REGISTERED PHARMACY TECHNICIAN LAVENDER TOP Timed 03/12/2021 8:00 AM REGISTERED PHARMACY TECHNICIAN EXTRA TUBES Routine 03/12/2021 8:00 AM REGISTERED PHARMACY TECHNICIAN PHOSPHORUS Timed 03/12/2021 7:59 AM REGISTERED PHARMACY TECHNICIAN MAGNESIUM Timed 03/12/2021 7:59 AM REGISTERED PHARMACY TECHNICIAN COMPREHENSIVE METABOLIC Timed 03/12/2021 PANEL 7:59 AM REGISTERED PHARMACY TECHNICIAN GLUCOSE POC Timed 03/12/2021 7:37 AM REGISTERED PHARMACY TECHNICIAN GLUCOSE POC Timed 03/11/2021 8:09 PM REGISTERED PHARMACY TECHNICIAN GLUCOSE POC Timed 03/11/2021 5:29 PM REGISTERED PHARMACY TECHNICIAN GLUCOSE POC Timed 03/11/2021 12:25 PM REGISTERED PHARMACY TECHNICIAN GLUCOSE POC Timed 03/11/2021 7:29 AM REGISTERED PHARMACY TECHNICIAN PHOSPHORUS Timed 03/11/2021 2:17 AM REGISTERED PHARMACY TECHNICIAN MAGNESIUM Timed 03/11/2021 2:17 AM REGISTERED PHARMACY TECHNICIAN CBC AND DIFF (MANUAL DIFF Routine 03/11/2021 IF NECESSARY) 2:17 AM REGISTERED PHARMACY TECHNICIAN COMPREHENSIVE METABOLIC Timed 03/11/2021 PANEL 2:17 AM REGISTERED PHARMACY TECHNICIAN GLUCOSE POC Timed 03/10/2021 8:31 PM REGISTERED PHARMACY TECHNICIAN GLUCOSE POC Timed 03/10/2021 5:20 PM REGISTERED PHARMACY TECHNICIAN GLUCOSE POC Timed 03/10/2021 2:31 PM REGISTERED PHARMACY TECHNICIAN GLUCOSE POC Timed 03/10/2021 11:23 AM REGISTERED PHARMACY TECHNICIAN GLUCOSE POC Timed 03/10/2021 7:38 AM REGISTERED PHARMACY TECHNICIAN GLUCOSE POC Timed 03/10/2021 3:47 AM REGISTERED PHARMACY TECHNICIAN COMPLETE BLOOD COUNT Routine 03/10/2021 12:26 AM REGISTERED PHARMACY TECHNICIAN PHOSPHORUS Routine 03/10/2021 12:25 AM REGISTERED PHARMACY TECHNICIAN MAGNESIUM Routine 03/10/2021 12:25 AM REGISTERED PHARMACY TECHNICIAN BASIC METABOLIC PANEL Routine 03/10/2021 12:25 AM REGISTERED PHARMACY TECHNICIAN GLUCOSE POC Timed 03/10/2021 12:07 AM REGISTERED PHARMACY TECHNICIAN GLUCOSE POC Timed 03/09/2021 8:39 PM REGISTERED PHARMACY TECHNICIAN GLUCOSE POC Timed 03/09/2021 6:31 PM REGISTERED PHARMACY TECHNICIAN GLUCOSE POC Timed 03/09/2021 4:40 PM REGISTERED PHARMACY TECHNICIAN CULTURE, ANAEROBE Routine 03/09/2021 Wound infect ion after 3:32 PM REGISTERED PHARMACY TECHNICIAN surgery Abscess of liver TISSUE PATHOLOGY OR Routine 03/09/2021 Wound infe ction after BIOPSY 3:20 PM REGISTERED PHARMACY TECHNICIAN surgery Abscess of liver CULTURE, TISSUE WITH GRAM Routine 03/09/2021 Woun d infection after STAIN (AEROBIC) 3:18 PM REGISTERED PHARMACY TECHNICIAN surgery Abscess of liver ANESTHESIA PERIPHERAL IV Routine 03/09/2021 2:45 PM REGISTERED PHARMACY TECHNICIAN REPAIR, HERNIA, 03/09/2021 Wound infection aft er INCISIONAL 2:15 PM REGISTERED PHARMACY TECHNICIAN surgery Abscess of liver APPLICATION, WOUND VAC 03/09/2021 Wound infectio n after 2:15 PM REGISTERED PHARMACY TECHNICIAN surgery Abscess of liver IRRIGATION AND 03/09/2021 Wound infection aft er DEBRIDEMENT, ABDOMEN 2:15 PM REGISTERED PHARMACY TECHNICIAN surgery Abscess of liver MAGNESIUM Routine 03/09/2021 12:30 PM REGISTERED PHARMACY TECHNICIAN COMPLETE BLOOD COUNT STAT 03/09/2021 12:30 PM REGISTERED PHARMACY TECHNICIAN BASIC METABOLIC PANEL STAT 03/09/2021 12:30 PM REGISTERED PHARMACY TECHNICIAN SARS-COV-2 (COVID-19) Routine 03/06/2021 Encounte r for 9:51 AM REGISTERED PHARMACY TECHNICIAN preoperative screening laboratory testing for COVID-[address] ABDOMEN OUTSIDE IMAGES Routine 02/23/2021 Enco unter for FOR PACS 1:[address] ABDOMEN OUTSIDE IMAGES Routine 02/23/2021 Enco unter for FOR PACS 1:09 PM CDT consultation from Last 3 Months Results * GLUCOSE POC (03/16/2021 5:26 PM REGISTERED PHARMACY TECHNICIAN) Only the most recent of 33 results within the time period is included. Glucose POC 122 (H) 70 - 100 mg/dL SLRL Specimen Blood - Venous Performing Organization Address City/[facility] P lidya Number [address] [place], [place] [address] * CBC and Diff (manual diff if necessary) (03/16/2021 10:35 AM REGISTERED PHARMACY TECHNICIAN) Only the most recent of 2 results [...] Specimen Blood - Venous Performing Organization Address City/State/[facility] Code P lidya Number SLRL [address] [place], [place] [address] * Basic Metabolic Panel (03/16/2021 10:35 AM REGISTERED PHARMACY TECHNICIAN) Only the most recent of 3 results [...] Specimen Blood - Venous Performing Organization Address [facility] P lidya Number SLRL [address] [place], [place] [address] * Phosphorus (03/14/2021 8:23 AM REGISTERED PHARMACY TECHNICIAN) Only the most recent of 5 results within the time period is included. Phosphorus 3.8 2.4 - 5.1 mg/dL SLRL Specimen Blood - Venous Performing Organization Address City/[facility]/ZIP Code P lidya Number SLRL [address] [place], [place] [address] * Magnesium (03/14/2021 8:23 AM REGISTERED PHARMACY TECHNICIAN) Only the most recent of 6 results within the time period is included. Magnesium 1.70 1.60 - 2.60 mg/dL SLRL Specimen Blood - Venous Performing Organization Address City/[facility]/ZIP Code P lidya Number SLRL [address] [place], [place] [address] * Comprehensive Metabolic Panel (03/14/2021 8:23 AM REGISTERED PHARMACY TECHNICIAN) Only the most recent of 4 results [...] U/L SLR L Phosphatase updated 02/15/21 with HS conversion to [employer] instrumentation. Alanine 30 0 - 34 U/L SLRL Aminotransferas e Aspartate 34Comment: Reference range 0 - 34 U/L SLR L Aminotransferas updated 02/15/21 with [facility] e conversion to [employer] [...] City/State/ZIP Code P lidya Number SLRL [address] [place], [place] [address] * Lavender Top (03/12/2021 8:00 AM REGISTERED PHARMACY TECHNICIAN) Specimen Blood - Venous Performing Organization Address City/State/ZIP Code P lidya Number SLRL [address] [place] [address] 11 * Complete Blood Count - In AM (03/10/2021 12:26 AM REGISTERED PHARMACY TECHNICIAN) Only the most recent of 2 results [...] Specimen Blood - Venous Performing Organization Address City/[facility]/ZIP Code P lidya Number [address] [place] [address] * Culture, Anaerobe (03/09/2021 3:32 PM REGISTERED PHARMACY TECHNICIAN) Culture growth No anaerobes isolated at 5 SLRL days Specimen Swab - Abdomen Performing Organization Address City/[facility]/ZIP Code P lidya Number SLRL [address] [place] [address] * Tissue Pathology or Biopsy (03/09/2021 3:20 PM REGISTERED PHARMACY TECHNICIAN) Specimen Tissue - Abdomen Narrative [facility] - 03/11/2021 4:15 PM REGISTERED PHARMACY TECHNICIAN [facility] Pathology Group SURGICAL PATHOLOGY REPORT PATIENT: MILLER IRIZARRY /AGE/SEX: 1975 (Age: 45) /F ID #: [id number] SUBMITTING PHYSICIAN: Lenin Vieira M.D. CLIENT: [facility] COLLECTED: 03/09/2021 REPORTED: 03/11/2021 SPECIMEN #: [id number] ##################MICROSCOPIC INTERPRETATION################## Abdominal wall, excision: - Fibroadipose tissue with patchy acute inflammation, extensive foreign body giant cell reaction and fat necrosis. - Negative for malignancy. Chapincito Victor MD Report Electronically Signed Out LWD:03/11/21 SRINI(STABLEHAND) CLINICAL HISTORY/IMPRESSION: Abscess. SPECIMEN LABELED: Abdominal wall [...] cm. No gross lesions are identified. Supervisor [employer] sections of skin, sinus tract, and abscess are submitted in cassettes A1A2. (PAS) ps1 Professional Component performed by SRINI, a [facility] Pathologist located at [facility], [address] [place] [id number] Technical Component performed at [facility] Jean-Pierre Harding, [facility] [id number] If immunohistochemical stains and or in situ hybridization are cited in this report, the performance characteristics were determined by [facility] Pathology Group in compliance with CLIA'88 regulations. Some of these tests rely on the use of 'analyte specific reagents' and are subject to specific labeling requirements by the FDA. Known positive and negative control tissues demonstrate appropriate staining. Results should be interpreted with caution given the likelihood of false negativity on decalcified specimens. This testing was developed by [facility]. It has not been cleared or approved by the FDA. The FDA has determined that such clearance or approval is not necessary. ###END OF REPORT### Performing Organization Address City/[facility]/ZIP Code P lidya Number [facility] [address] [place], [place] [phone] * Culture, Tissue with Gram Stain (Aerobic) (03/09/2021 3:18 PM REGISTERED PHARMACY TECHNICIAN) Culture growth No growth at 4 days SLRL Gram Stain No polymorphonuclear SLRL Result leukocytes seen Gram Stain No organisms seen SLRL Result Specimen Tissue - Abdomen Performing Organization Address City/State/ZIP Code P lidya Number SLRL [address] [place], [place] [address] * ANESTHESIA PERIPHERAL IV (03/09/2021 2:45 PM REGISTERED PHARMACY TECHNICIAN) Modality Anatomical Region Laterality Other Narrative Amaya ArnettFABIOLA - 03/09/2021 2:45 PM REGISTERED PHARMACY TECHNICIAN Amaya ArnettFABIOLA 03/09/2021 2:46 PM Peripheral IV End time: 03/09/2021 2:29 PM Performed by: resident Staffing Edy Galarza DO IV Placement IV placed Left Foot. Site was prepped with alcohol swabs and no local anesthetic was used. A 22 gauge needle was used with anatomical landmarks technique. * COVID-19 Preprocedure PCR (non-PUI) (03/06/2021 9:51 AM REGISTERED PHARMACY TECHNICIAN) SARS-COV-2 PCR Negative Negative SLRL Specimen Swab - NASOPHARYNGEAL SWAB Narrative RL - 03/06/2021 2:34 PM REGISTERED PHARMACY TECHNICIAN This RT-PCR test has been authorized by the FDA under an Emergency Use Authorization (EUA) for use by authorized laboratories. Performing Organization Address City/[facility]/ZIP Code P lidya Number SLRL [address] [place], [place] [address] * CT Outside images for PACS Abdomen (02/23/2021 1:09 PM CDT) Only the most recent of 2 results within the time period is included. Specimen Performing Organization Address City/[facility] P lidya Number MCKESSON from Last 3 Months Insurance Type Payer Benefit Subscriber ID Effective Phone Address Plan / Dates Group MEDICAID MANAGED CARE [employer] [id number] 2018-[address] ([place] [facility] resent [id number] [facility] [address] Advance Directives For more information, please contact: [phone] Patient Supervisor [employer] Explanation Type Date Recorded Advance Directives and Living Will Power of Chief Quality Officer Health Care Directive Date Inactivated Comments Code Status Date Activated Full Code 03/09/2021 1:46 PM 06/03/2020 5:33 PM Full Code 05/30/2020 10:44 AM 05/08/2020 8:06 PM Full Code 05/02/2020 1:30 PM 02/13/2020 3:56 PM Full Code 02/08/2020 3:05 PM 02/08/2020 3:05 PM Full Code 02/08/2020 7:30 AM Care Teams Start Date End Date Ios Architect Relationship Specialty 10/24/19 James Euceda MD PCP - General [address] [address]
--- OUTSIDE RECORDS SUMMARY | 2021-05-17 13:39 | XMS REPORT | Encounter Summary ---
Author Author [facility] Organization [facility] Address Unknown Phone Unavailable Care Team Providers Care Cost Reduction Engineer Name Role Phone Self, James VEGA PCP Reason for Visit * Reason Onset Date Comments Procedure Instructions 05/11/2021 Encounter Details Care Team Description Date Type Department Sabine Narvaez MA Procedure Instructions 05/11/2021 [facility]phone [facility] [address] [address] Social History Date Tobacco Use Types Packs/Day [...] encounter Miscellaneous Notes * Telephone Encounter - Sabine Narvaez MA - 05/11/2021 11:01 AM BULLET SLUG CASTING MACHINE OPERATOR [facility] Procedure Questionnaire Bobbi Del Valle Pavan 1975 Procedure: EGD with Colonoscopy Diagnosis: Personal history of polyps , diarrhea Procedure Date: 10/13/21 Procedure Time: 1000 Physician: Carmen Procedure Location: [facility] Date of Last Colonoscopy: n/a Location of Last Colonoscopy: n/a Transcribing Machine Operator Needed: no Language: French Deaf Expressions: no Notified: no Blood Thinners: No Diabetic: no If Yes, Insulin Dependent - Seek PCP regarding dosing, etc Dialysis: no Any other renal/kidney issues: no (If YES - Patient needs Plenvu) Taking Diet Pill: No ET SLUG CASTING MACHINE OPERATOR documented in this encounter Plan of Treatment Care Team Description Date Type Specialty 10/10/2021 [place] [address] [place] [address] 10/13/2021 Hospital [place]astroenter[place] [address] [place] [address] ESOPHAGOGASTRODUODENOSCOPY, WITH COLONOS COPY 10/13/2021 Surgery Gastroenterology Order Schedule Name Type Priority Associated Diag noses 1 Occurrences starting 05/11/2021 until 05/11/2022 COVID-19 Preprocedure PCR Lab Routine Pre- procedure lab exam (non-PUI) Date/Time Name Priority Associated Diagnose s 10/13/2021 10:00 AM CDT ESOPHAGOGASTRODUODENOSCOPY, WITH Personal history o f COLONOSCOPY polyps , diarrhea documented as of this encounter Visit Diagnoses Diagnosis Pre-procedure lab exam - Primary Pre-procedural laboratory examination documented in this encounter Care Teams Start Date End Date Cost Reduction Engineer Relationship Specialty 10/24/19 James Euceda MD PCP - General [address] [place] [address] documented as of this encounter
--- OUTSIDE RECORDS SUMMARY | 2021-05-17 13:40 | XMS REPORT | Clinical Summary ---
Author Author [facility] Organization [facility] Address Unknown Phone Unavailable Care Team Providers Care Tile Mason Name Role Phone Self, James VEGA PCP Jennifer Palomino [phone] Unavailable Carina Myers INTERNATIONAL STUDENT COUNSELOR Unavailable Unavailable Source Comments Some departments are not documenting in the electronic medical record. If you d o not see the information that you expected, contact Release of Information in [facility] [employer] Information Management department at [phone] for further assistan ce in locating additional records.[facility] Allergies Comments Active Allergy Reactions Severity Noted [...] MVP Team. MVP Team Contact: , Pager: [phone] (Pager Available M-F [phone]) ED Visits: 4 Admissions: 4 Primary Partner of Utilization (see progress note): ED/911 easier [...] Gastro / Lenin Zaidi & Gerald Chaudhry [facility]'s specialists. Disposition: Patient DC last on 12/04/2019 home with [facility] (P: [phone]) and TPN through [facility] ([phone]) Pt last assessed: 11/29/2019 Problem Noted Date [...] ENDOSCOPY performed by Chapincito Sloan MD at [facility] GASTROINTESTINAL 11/13/2019 N/A ESOPHAG OGASTRODUODENOSCOPY WITH DIRECTED ENDOSCOPY SUBMUCOSAL INJECTION - FLEX IBLE performed by Chapincito Sloan MD at [facility] ENDO Medical History Medical History Date [...] Comments Vital Sign 141/79 05/14/2020 10:54 AM JAVA SWING DEVELOPER Blood Pressure 81 05/14/2020 10:54 AM JAVA SWING DEVELOPER Pulse 36.3 C (97.4 F) 05/14/2020 10:54 AM JAVA SWING DEVELOPER Temperature 15 01/10/2020 1:03 PM CDT Respiratory Rate 96% 01/29/2020 5:31 PM CDT Oxygen Saturation - - Inhaled Oxygen Concentration 95.3 kg (210 lb) 05/14/2020 10:54 AM JAVA SWING DEVELOPER Weight 157.5 cm (5' 2") 05/14/2020 10:54 AM JAVA SWING DEVELOPER Height 38.41 05/14/2020 10:54 AM JAVA SWING DEVELOPER Body Mass Index Plan of Treatment Health [...] Note: Get better GOAL General No Mariajose Sandesr RN Note: Not to be throwing up Implants Device Identifier Shelf Expiration Date Model / Serial / L ot Implanted Type Area Manufactur [id number] 04/24/2021 [id number] / NA / [id number] Tray Catheter 5fr 70cm Powerpicc 2 Left: Vein BA RD Lumen Guidewire Nitinol - Sna ACCESS Implanted: Qty: 1 on 10/18/2019 by Cooper Bell MD at [facility] [id number] 03/24/2022 [id number] / N/A / [id number] Tray Catheter 5fr 70cm Powerpicc 2 Left: Arm BA RD Lumen Guidewire Nitinol - Sn/A ACCESS Implanted: Qty: 1 on 11/07/2019 by Darryl Valdes MD at [facility] [id number] 01/22/2023 [id number] / N/A / [id number] Tray Catheter 5fr 1 Lumen Right: Chest BARD Microintroducer Surecuff Tissue - ACCESS Sn/A SYSTEMS Implanted: Qty: 1 on 11/12/2019 by Farhad Holliday MD at [facility] [employer] [employer] [id number] 04/24/2021 [id number] / N/A / [id number] Tray Catheter 5fr 70cm Powerpicc 2 Right: Chest BA RD Lumen Guidewire Nitinol - Sn/A ACCESS Implanted: Qty: 1 on 12/03/2019 by Stewart Adam MD at [facility] [id number] 03/24/2022 [id number] / N/A / [id number] Tray Catheter 5fr 70cm Powerpicc 2 Right: Arm BA RD Lumen Guidewire Nitinol - Sn/A ACCESS Implanted: Qty: 1 on 12/13/2019 by Darryl Valdes MD at [facility] [id number] 08/22/2022 [id number] / [id number] / [id number] Tray Catheter 5fr 70cm Powerpicc 2 Right: Arm BA RD Lumen Guidewire Nitinol - [id number] ACCESS Implanted: Qty: 1 on 01/29/2020 by Teofilo Reynolds MD at [facility] Results Not on filefrom Last 3 Months Insurance Type Payer Benefit Subscriber ID Effective Phone Address Plan / Dates Group AETNA MEDICAID AETNA [id number] 2018-P [phone] [address] [place] [address] Advance Directives Patient Precipitate Washer Explanation Type Date Recorded Advance 12/11/2019 12:00 [...] Family? Care Teams Start Date End Date Tile Mason Relationship Specialty 07/27/18 James Euceda MD PCP - General Family Medicine 11/12/19 Jennifer Palomino Continuum of Care Case Management 11/29/19 Carina Myers, INTERNATIONAL STUDENT COUNSELOR
[2021-05-17] MEDS ORDERED: ONDANSETRON 4 MG/2 ML (SDV) Z0FRAN IV STA (13:59)
[2021-05-17] MEDS ORDERED: fentaNYL INJ 100 MCG/2 ML AMP IVP STA ×2 (13:59→15:43)
[2021-05-17] MEDS ORDERED: NS IV 1000 ML 1,000 ML IV SCH (14:00)
[2021-05-17 14:01] LABS: BILIRUBIN,URINE NEGATIVE (NEGATIVE); CLARITY,URINE CLEAR; COLOR,URINE ORANGE; GLUCOSE, URINE (UA) NEGATIVE (NEGATIVE); KETONES,URINE NEGATIVE (NEGATIVE); LEUKOCYTE ESTERASE ,URINE NEGATIVE (NEGATIVE); NITRITE,URINE POSITIVE (NEGATIVE); PROTEIN,URINE 1+ (NEGATIVE)
[2021-05-17 14:02] LABS: BACTERIA,URINE MODERATE /HPF; WBC,URINE 0-2 /HPF
--- NOTE | 2021-05-17 14:09 | ED General ---
General Chief Complaint: Abdominal/GI Problems Stated Complaint: DIARRHEA; VOMITING Nursing Triage Note: Patient reports she recently started taking rifampin for her chronic abdominal wound infected with MRSA. She reports she has had nausea/vomiting/diarrhea after taking her rifampin and states she is dehydrated. Source of Information: Patient History of Present Illness Date Seen by Provider: May 17, 2021 Time Seen by Provider: 13:40 Initial Comments 45-year-old female presenting with complaints of nausea, vomiting, increased diarrhea, increased abdominal pain. 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 She states that the drainage has developed greenish color which in the past is indicated infection. It has had a foul odor to it the entire time she has been getting drainage from it. She states in the last few days she has been having nausea and vomiting and unable to keep hardly anything down. She has been taking Zofran and had even tried taking some Phenergan at home. The Phenergan was triggering tardive dyskinesia for her. She feels like she is dry and dehydrated. She has not been tolerating her pain medication either. She is supposed to be taking oxycodone 10 to 15 mg every 8 hours. She follows with Dr. Zaidi with hepatology out of [facility]. She also recently had COVID infection and has had multiple visits through the emergency department since the beginning of the year. She states that after she takes her rifampin she has diarrhea for about 4 hours before things slow down. She has been on the rifampin for approximately 12 days. She had previously been on Bactrim for 12 years but she reports it was shutting down her pancreas so they stopped it. Timing/Duration: 3-4 Days (chronic but worsening over last 3-4 days) Severity: Severe Modifying Factors: worse with Movement Associated Systoms: No Chest Pain, No Cough, No Diaphoresis, No Fever/Chills, No Headaches, No Loss of Appetite; Malaise, Nausea/Vomiting; No Rash, No Seizure, No Shortness of Air, No Syncope; Weakness Allergies and Home Medications Allergies Coded Allergies: adhesive tape (Verified Allergy, Unknown, 09/28/18) chlorhexidine (Verified Allergy, Unknown, 07/29/18) fluvoxamine (Verified Allergy, Unknown, 07/29/18) hydromorphone (Verified Allergy, Unknown, 07/29/18) latex (Verified Allergy, Unknown, 07/29/18) meperidine (Verified Allergy, Unknown, 07/29/18) morphine (Verified Allergy, Unknown, 05/19/18) sulfamethoxazole (Verified Allergy, Unknown, 05/19/18) trimethoprim (Verified Allergy, Unknown, 05/19/18) metoclopramide (Unverified Adverse Reaction, Intermediate, Tardive Dyskinesia, 02/02/19) promethazine (Unverified Adverse Reaction, Intermediate, Tardive Dyskinesia, 02/02/19) Patient Home Medication List Home Medication List Reviewed: Yes Acetaminophen (Acetaminophen Extra Strength) 500 Mg Tablet, 500 MG PO Q8H PRN for PAIN-BREAKTHROUGH, (Reported) Entered as Reported by: CALVIN LAGOS on 05/20/18 1037 Albuterol Sulfate (Proair Hfa) 1 Puff Puff, 2 PUFF IH Q4H PRN for SHORTNESS OF BREATH, (Reported) Entered as Reported by: CALVIN LAGOS on 05/20/18 1032 Amlodipine Besylate (Amlodipine Besylate) 10 Mg Tablet, (Reported) Entered as Reported by: TOM RIVERS on 08/06/19 1600 Amoxicillin/Potassium Clav (Amox Tr-K Clv 400-57/5 Susp) 400 Mg/5 Ml Susp.recon, (Reported) Entered as Reported by: TOM RIVERS on 08/06/19 1600 Canagliflozin (Invokana) 100 Mg Tablet, (Reported) Entered as Reported by: TOM RIVERS on 03/18/19 1416 Carvedilol (Carvedilol) 25 Mg Tablet, (Reported) Entered as Reported by: TOM RIVERS on 08/06/19 1600 Clonidine HCl (Clonidine HCl) 0.1 Mg Tablet, (Reported) Entered as Reported by: TOM RIVERS on 08/06/19 1600 Dicyclomine HCl (Dicyclomine HCl) 20 Mg Tablet, 20 MG PO BID Prescribed by: SAHE PICHARDO on 11/06/19 1541 Fluconazole (Diflucan) 100 Mg Tablet, 100 MG PO DAILY Prescribed by: SHAE PICHARDO on 01/04/20 1632 Insulin Aspart (Novolog Flexpen) 300 Units/3 Ml Solution, 7 UNITS SQ AC Prescribed by: OSMAR JEROME on 05/23/18 0955 Insulin Detemir (Levemir Flextouch) 100 Unit/1 Ml Insuln.pen, 20 UNIT SQ HS Prescribed by: OSMAR JEROME on 05/23/18 0955 Ipratropium/Albuterol Sulfate (Iprat-Albut 0.5-3(2.5) mg/3 ml) 3 Ml Ampul.neb, 3 ML IH Q4H PRN for SHORTNESS OF BREATH, (Reported) Entered as Reported by: CALVIN LAGOS on 05/20/18 1033 Ketorolac Tromethamine (Ketorolac Tromethamine) 10 Mg Tablet, 10 MG PO Q6H PRN for PAIN-MODERATE (5-7) Prescribed by: REGINA ROBLES MD on 04/21/19 1344 Lisinopril (Lisinopril) 20 Mg Tablet, 20 MG PO DAILY Prescribed by: OSMAR JEROME on 05/23/18 0955 Lisinopril (Lisinopril) 40 Mg Tablet, (Reported) Entered as Reported by: TOM RIVERS on 08/06/19 1600 Metformin HCl (Metformin HCl ER) 750 Mg Tab.er.24h, 750 MG PO BID, (Reported) Entered as Reported by: CALVIN LAGOS on 05/20/18 1034 Metoclopramide HCl (Metoclopramide HCl) 10 Mg Tablet, 10 MG PO QID, (Reported) Entered as Reported by: CALVIN LAGOS on 05/20/18 1036 Omeprazole (Omeprazole) 20 Mg Capsule.dr, 20 MG PO HS, (Reported) Entered as Reported by: CALVIN LAGOS on 05/20/18 1035 Ondansetron (Ondansetron Odt) 4 Mg Tab.rapdis, 4 MG PO Q4H PRN for NAUSEA/VOMITING-1ST LINE, (Reported) Entered as Reported by: CALVIN LAGOS on 05/20/18 1036 Ondansetron (Ondansetron Odt) 4 Mg Tab.rapdis, 4 MG PO BID Prescribed by: SHAE PICHARDO on 11/06/19 1541 Potassium Chloride (Potassium Chloride) 20 Meq Tablet.er, 20 MEQ PO BID Prescribed by: ARCHANA GIL on 05/07/212004 Promethazine HCl (Promethazine Tablet) 25 Mg Tablet, 25 MG PO Q6H PRN for NAUSEA/VOMITING, (Reported) Entered as Reported by: CALVIN LAGOS on 05/20/18 1029 Promethazine HCl (Promethazine Tablet) 25 Mg Tablet, 25 MG PO Q6H PRN for NAUSEA/VOMITING-2ND LINE Prescribed by: ADA IRELAND on 10/09/18 192 Promethazine HCl (Phenergan) 50 Mg Supp.rect, 50 MG RC BID PRN Prescribed by: ALDO GUZMAN on 03/16/19 1331 Promethazine HCl (Promethazine Tablet) 25 Mg Tablet, 25 MG PO Q8H PRN for NAUSEA/VOMITING Prescribed by: REBECA LUBIN on 05/04/21 1520 Sucralfate (Carafate) 1 Gm Tablet, 1 GM PO QID Prescribed by: ADA IRELAND on 10/09/18 192 Tramadol HCl (Tramadol HCl) 50 Mg Tablet, 50 MG PO Q6H PRN for PAIN-MILD, (Reported) Entered as Reported by: CALVIN LAGOS on 05/20/18 1030 Trazodone HCl (Trazodone HCl) 150 Mg Tablet, 300 MG PO HS, (Reported) Entered as Reported by: CALVIN LAGOS on 05/20/18 1034 Venlafaxine HCl (Venlafaxine HCl ER) 150 Mg Tab.er.24, 150 MG PO DAILY, (Reported) Entered as Reported by: CALVIN LAGOS on 05/20/18 1032 Review of Systems Review of Systems Constitutional: No chills, No diaphoresis; dizziness; No fever; malaise, weakness EENTM: no symptoms reported Respiratory: no symptoms reported Cardiovascular: no symptoms reported Gastrointestinal: see HPI, diarrhea (has diarrhea for about 4 hours after taking Rifampin, then it improves until she takes her next dose.), nausea, vomiting Genitourinary: decreased output, dysuria Musculoskeletal: muscle pain (generalized body aches) Skin: No rash Psychiatric/Neurological: Anxiety, Weakness (general) Past Zdhxanu-Sxllrc-Guxksg Hx Patient Social History Tobacco Use?: No Substance use?: No Alcohol Use?: No Pt feels they are or have been: No Immunizations Up To Date First/Initial COVID19 Vaccinat: 10/2020 Second COVID19 Vaccination Demetrius: 10/2020 Seasonal Allergies Seasonal Allergies: Yes Past Medical History Surgery/Hospitalization HX: gastroparesis, chronic abdominal wound infection with MRSA Surgeries: Yes (Jejunostomy tube 07/26/19; gastric stimulator; pyloroplasty) Gallbladder, Hysterectomy, Orthopedic Respiratory: Yes (Tobaccoism) Asthma Currently Using CPAP: Yes Currently Using BIPAP: No Cardiac: No Neurological: No Female 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 Disorders: Denies 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 Sexually Transmitted Disease: No HIV/AIDS: No Genitourinary: No Gastrointestinal: Yes (Gastroparesis; Hepatitis C; possible cyclic vomiting) Gastroesophageal Reflux, Ulcer Musculoskeletal: No Endocrine: Yes Diabetes, Insulin dep HEENT: Yes (wears glasses) Hearing Impairment: Denies Cancer: No Psychosocial: Yes (schizoeffective disorder) Anxiety, Depression Integumentary: No Blood Disorders: No Physical Exam Vital Signs Vital Signs - First Documented 05/17/21 13:45 Temp 37.2 Pulse 104 Resp 18 B/P (MAP) 177/93 (121) Pulse Ox 97 O2 Delivery Room Air Capillary Refill : Less Than 3 Seconds Height, Weight, BMI Height: 5'2.00" Weight: 184lbs. 7.0oz. 83.950827xn; 33.00 BMI Method:Actual General Appearance: No Apparent Distress, Chronically ill HEENT: PERRL/EOMI; No Moist Mucous Membranes (slightly dry mucous membranes) Neck: Full Range of Motion, Normal Inspection, Non Tender, Supple Respiratory: Chest Non Tender, Lungs Clear, Normal Breath Sounds, No Accessory Muscle Use, No Respiratory Distress Cardiovascular: Regular Rate, Rhythm, Normal Peripheral Pulses Gastrointestinal: Normal Bowel Sounds, No Pulsatile Mass, Soft, Tenderness (mild diffuse tenderness to palpation), Other (Wound vac in place. 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 Norm as Tested Skin: Warm/Dry; No Rash Focused Exam Lactate Level 05/17/21 14:30: Lactic Acid Level 1.56 Lactic Acid Level Laboratory Tests Test 05/17/21 14:30 Lactic Acid Level 1.56 MMOL/L (0.50-2.00) Progress/Results/Core Measures Suspected Sepsis SIRS Temperature: Pulse: 104 Respiratory Rate: 18 Laboratory Tests 05/17/21 14:30: White Blood Count 8.2 Blood Pressure 177 /93 Mean: 121 05/17/21 14:30: Lactic Acid Level 1.56 Laboratory Tests 05/17/21 14:30: Creatinine 0.63, INR Comment 1.0, Platelet Count 304, Total Bilirubin 0.4 Results/Orders Lab Results Laboratory Tests Test 05/17/21 13:45 05/17/21 14:30 Range/Units Urine Color ORANGE Urine Clarity CLEAR Urine pH 6.0 5-9 Urine Specific [place] >=1.030 1.016-1.022 Urine Protein 1+ H NEGATIVE Urine Glucose (UA) NEGATIVE NEGATIVE Urine Ketones NEGATIVE NEGATIVE Urine Nitrite POSITIVE H NEGATIVE Urine Bilirubin NEGATIVE NEGATIVE Urine Urobilinogen 1.0 < = 1.0 MG/DL Urine Leukocyte Esterase NEGATIVE NEGATIVE Urine RBC (Auto) NEGATIVE NEGATIVE Urine RBC 5-10 H /HPF Urine WBC 0-2 /HPF Urine Squamous Epithelial Cells 10-25 H /HPF Urine Crystals NONE /LPF Urine Bacteria MODERATE H /HPF Urine Casts NONE /LPF Urine Mucus LARGE H /LPF Urine Culture Indicated YES White Blood Count 8.2 4.3-11.0 10^3/uL Red Blood Count 4.76 3.80-5.11 10^6/uL Hemoglobin 14.3 11.5-16.0 g/dL Hematocrit 42 35-52 % Mean Corpuscular Volume 88 80-99 fL Mean Corpuscular Hemoglobin 30 25-34 pg Mean Corpuscular Hemoglobin Concent 34 32-36 g/dL Red Cell Distribution Width 13.4 10.0-14.5 % Platelet Count 304 130-400 10^3/uL Mean Platelet Volume 9.9 9.0-12.2 fL Immature Granulocyte % (Auto) 0 % Neutrophils (%) (Auto) 67 42-75 % Lymphocytes (%) (Auto) 26 12-44 % Monocytes (%) (Auto) 6 0-12 % Eosinophils (%) (Auto) 1 0-10 % Basophils (%) (Auto) 0 0-10 % Neutrophils # (Auto) 5.5 1.8-7.8 X 10^3 Lymphocytes # (Auto) 2.1 1.0-4.0 X 10^3 Monocytes # (Auto) 0.5 0.0-1.0 X 10^3 Eosinophils # (Auto) 0.1 0.0-0.3 10^3/uL Basophils # (Auto) 0.0 0.0-0.1 10^3/uL Immature Granulocyte # (Auto) 0.0 0.0-0.1 10^3/uL Prothrombin Time 13.4 12.2-14.7 SEC INR Comment 1.0 0.8-1.4 Activated Partial Thromboplast Time 25 24-35 SEC Sodium Level 138 135-145 MMOL/L Potassium Level 4.0 3.6-5.0 MMOL/L Chloride Level 103 98-107 MMOL/L Carbon Dioxide Level 22 21-32 MMOL/L Anion Gap 13 5-14 MMOL/L Blood Urea Nitrogen 8 7-18 MG/DL Creatinine 0.63 0.60-1.30 MG/DL Estimat Glomerular Filtration Rate 111 BUN/Creatinine Ratio 13 Glucose Level 156 H 70-105 MG/DL Lactic Acid Level 1.56 0.50-2.00 MMOL/L Calcium Level 9.6 8.5-10.1 MG/DL Corrected Calcium 9.5 8.5-10.1 MG/DL Magnesium Level 1.8 1.6-2.4 MG/DL Total Bilirubin 0.4 0.1-1.0 MG/DL Aspartate Amino Transf (AST/SGOT) 16 5-34 U/L Alanine Aminotransferase (ALT/SGPT) 8 0-55 U/L Alkaline Phosphatase 83 40-136 U/L C-Reactive Protein < 0.30 <0.50 MG/DL Total Protein 7.7 6.4-8.2 GM/DL Albumin 4.1 3.2-4.5 GM/DL My Orders Orders - MYRIAM REESE MD Ua Culture If Indicated (05/17/21 13:43) Urine Culture (05/17/21 13:45) Monitor-Rhythm Ecg Trace Only (05/17/21 13:59) Ed Iv/Invasive Line Start (05/17/21 13:59) Cbc With Automated Diff (05/17/21 13:59) Comprehensive Metabolic Panel (05/17/21 13:59) Crp Fs (05/17/21 13:59) Protime With Inr (05/17/21 13:59) Partial Thromboplastin Time (05/17/21 13:59) Ns Iv 1000 Ml (Sodium Chloride 0.9%) (05/17/21 14:00) Ondansetron Injection (Zofran Injectio (05/17/21 13:59) Blood Culture (05/17/21 13:59) Magnesium (05/17/21 13:59) Ct Abdomen/Pelvis W (05/17/21 13:59) Lactic Acid Analyzer (05/17/21 13:59) Fentanyl Inj (Sublimaze Injection) (05/17/21 13:59) Iohexol Injection (Omnipaque 350 Mg/Ml 1 (05/17/21 14:15) Received Contrast (Hold Metformin- Contr (05/17/21 14:15) Sodium Chloride Flush (Catheter Flush Sy (05/17/21 14:15) Ns (Ivpb) (Sodium Chloride 0.9% Ivpb Bag (05/17/21 14:15) Ns Iv 1000 Ml (Sodium Chloride 0.9%) (05/17/21 15:43) Ondansetron Injection (Zofran Injectio (05/17/21 15:43) Fentanyl Inj (Sublimaze Injection) (05/17/21 15:43) Oxycodone Immediate Rel Tablet (Oxyir Ta (05/17/21 15:43) Medications Given in ED Current Medications Medications Dose Ordered Sig/Ashley Route Start Time Stop Time Status Last Admin Dose Admin Iohexol 100 ml ONCE ONCE IV 05/17/21 14:15 05/17/21 14:16 DC 05/17/21 14:54 100 ML Sodium Chloride 10 ml NEEDED PRN IV 05/17/21 14:15 05/17/21 14:54 10 ML Sodium Chloride 100 ml ONCE ONCE IV 05/17/21 14:15 05/17/21 14:16 DC 05/17/21 14:54 80 ML Vital Signs/I&O 05/17/21 05/17/21 13:45 16:16 Temp 37.2 Pulse 104 81 Resp 18 16 B/P (MAP) 177/93 (121) 151/78 Pulse Ox 97 97 O2 Delivery Room Air Room Air Capillary Refill : Less Than 3 Seconds Blood Pressure Mean: 121 Progress Note #1: Progress Note Obtain labs and recheck tests to compare to most recent blood work. Blood cultures and lactic acid to help evaluate for possible sepsis or worsening infection. CT scan of the abdomen and pelvis to help evaluate for worsening infection. Patient states that she was to get a CT of her abdomen pelvis ordered by Dr. Vieira but insurance had not approved it yet. Try giving IV fluids for hydration, Zofran for nausea, fentanyl for pain. Once her blood work and tests are back could see if she had anything requiring acute changes with Dr. Vieira or if she just needed something different for nausea at home. Progress Note #2: Time: 14:51 Progress Note Urinalysis does demonstrate greater than 1.030 specific gravity. She had 1+ Nitrites with large amount of Bacteria so a culture will be obtained. CBC without elevated WBC count at 8.2 with normal differential. Progress Note #3: Time: 15:23 Progress Note Chemistry panel does not show any acute significant abnormality. Her lactic acid is normal. Her CRP is not elevated. Her magnesium is okay at 1.8. Her renal and hepatic function are not elevated. Her CT scan did not show any abscess or fluid collection under the abdominal wall defects. There is no acute intra-abdominal abnormality. Her CRP was less than 0.3. Her potassium was 4.0. Based off of her labs and CT scan there was no signs of acute worsening infection or any change. Her urine was showing concentration with an elevated specific gravity and possible infection however she is already on rifampin. She was tolerating some oral intake here in the ED after IV Zofran and IV fluids. Her heart rate had improved by about 10 bpm after getting a liter of normal saline. Will discuss with patient about any additional fluid and pain medicine here prior to discharge to home and have her continue with follow up with Wound Care and Dr. Zaidi. Progress Note #4: Time: 15:50 Progress Note Patient agreeable with plan to discharge to home after repeat IVF for additional hydration, repeat Zofran for nausea, Repeat Fentanyl for pain and add on Oxy IR 15 mg to try and help with getting on top of her chronic pain. Resume the wound Vac and follow up with Dr. Zaidi and Wound care clinic. Diagnostic Imaging Diagonstic Imaging: CT Plain Films/CT/US/NM/MRI: abdomen, pelvis Comments NAME: MILLER IRIZARRY [facility] REC#: [id number] PT STATUS: REG ER : 1975 PHYSICIAN: MYRIAM REESE MD ADMIT DATE: 05/17/21/ER FS Draft Date of Exam:05/17/21 CT ABDOMEN/PELVIS W PROCEDURE: CT abdomen and pelvis with contrast. TECHNIQUE: Multiple contiguous axial images were obtained through the abdomen and pelvis after administration of intravenous contrast. Auto Exposure Controls were utilized during the CT exam to meet ALARA standards for radiation dose reduction. All CT scans use one or more of the following dose optimizing techniques: automated exposure control, MA and/or KvP adjustment based on patient size and exam type or iterative reconstruction. INDICATION: Diffuse abdominal pain with chronic abdominal wound with wound VAC. COMPARISON: Correlation is made with prior CT from 02/16/2021. FINDINGS: The lung bases are clear. The liver is unremarkable. Gallbladder is surgically absent. There is no biliary ductal dilatation. The pancreas and spleen are unremarkable. No adrenal mass is detected. Kidneys are unremarkable. Aorta is calcified but nonaneurysmal. There is a midline abdominal wound as well as a right abdominal wound that extends from the skin surface to the abdominal wall musculature. No underlying fluid collection is seen. The small and large bowel loops are normal caliber. There is no obstruction. No free fluid or fluid collection is seen. Bladder is decompressed. Uterus is surgically absent. IMPRESSION: Abdominal wall defects in the midline and right abdomen, as described. No underlying fluid collection or abscess is identified. No acute features are detected. Dictated on workstation # [id number] Dict: 05/17/21 1515 Trans: 05/17/21 1520 [facility] [id number] Interpreted by: BRIJESH BATRES MD Electronically signed by: Reviewed: Reviewed by Me Departure Impression Primary Impression: Diffuse abdominal pain Additional Impressions: Nausea vomiting and diarrhea Chronic abdominal wound infection Qualified Codes: S31.109D - Unspecified open wound of abdominal wall, unspecified quadrant without penetration into peritoneal cavity, subsequent encounter; L08.9 - Local infection of the skin and subcutaneous tissue, unspecified Disposition: HOME, SELF-CARE Condition: Stable Departure-Patient Inst. Decision time for Depature: 15:52 Referrals: SELFGLORY MD (PCP/Family) Primary Care Physician Patient Instructions: Nausea and Vomiting, Adult ED, Diarrhea, Adult ED, Abdominal Pain, Adult ED Add. Discharge Instructions: Continue taking your medicines and antibiotics as prescribed. Follow up with Wound Care and with Dr. Zaidi through [facility] about your increased pain and continued drainage while on Rifampin. All discharge instructions reviewed with patient and/or family. Voiced understanding. MYRIAM REESE MD May 17, 2021 14:09
[2021-05-17] MEDS ORDERED: NS 100 ML (IVPB) BAG IV ONE (14:15)
[2021-05-17] MEDS ORDERED: IOHEXOL 350 MG/ML 100 ML (OMNIPAQUE 350) VIAL IV ONE (14:15)
[2021-05-17] MEDS ORDERED: CATHETER FLUSH 10 ML SYR IV PRN (14:15)
[2021-05-17] MEDS ORDERED: HOLD METFORMIN - RECEIVED CONTRAST 20 ML VIAL IV SCH (14:15)
[2021-05-17 14:35] LABS: BASOPHILS % (AUTO) 0 % (0-10); EOSINOPHILS # (AUTO) 0.1 10^3/uL (0.0-0.3); EOSINOPHILS % (AUTO) 1 % (0-10); HEMATOCRIT 42 % (35-52); HEMOGLOBIN 14.3 g/dL (11.5-16.0); LYMPHOCYTES # (AUTO) 2.1 X 10^3 (1.0-4.0); LYMPHOCYTES % (AUTO) 26 % (12-44); MEAN CORPUSCULAR HEMOGLOBIN 30 pg (25-34); MEAN CORPUSCULAR HGB CONC 34 g/dL (32-36); MEAN CORPUSCULAR VOLUME 88 fL (80-99); MEAN PLATELET VOLUME 9.9 fL (9.0-12.2); MONOCYTES # (AUTO) 0.5 X 10^3 (0.0-1.0); MONOCYTES % (AUTO) 6 % (0-12); NEUTROPHILS # (AUTO) 5.5 X 10^3 (1.8-7.8); NEUTROPHILS % (AUTO) 67 % (42-75); PLATELET COUNT 304 10^3/uL (130-400); WHITE BLOOD COUNT 8.2 10^3/uL (4.3-11.0)
[2021-05-17 14:45] LABS: PROTHROMBIN TIME PATIENT 13.4 SEC (12.2-14.7)
[2021-05-17 15:00] LABS: ALANINE AMINOTRANSFERASE 8 U/L (0-55); ALBUMIN 4.1 GM/DL (3.2-4.5); ALKALINE PHOSPHATASE 83 U/L (40-136); BILIRUBIN,TOTAL 0.4 MG/DL (0.1-1.0); BUN/CREATININE RATIO 13; CALCIUM 9.6 MG/DL (8.5-10.1); CARBON DIOXIDE 22 MMOL/L (21-32); CHLORIDE 103 MMOL/L (98-107); CREATININE SERUM 0.63 MG/DL (0.60-1.30); GFR ESTIMATED 111; GLUCOSE 156 MG/DL (70-105); SODIUM 138 MMOL/L (135-145); TOTAL PROTEIN 7.7 GM/DL (6.4-8.2)
--- NOTE | 2021-05-17 15:20 | Diagnostic Imaging Report ---
PROCEDURE: CT abdomen and pelvis with contrast. TECHNIQUE: Multiple contiguous axial images were obtained through the abdomen and pelvis after administration of intravenous contrast. Auto Exposure Controls were utilized during the CT exam to meet ALARA standards for radiation dose reduction. All CT scans use one or more of the following dose optimizing techniques: automated exposure control, MA and/or KvP adjustment based on patient size and exam type or iterative reconstruction. INDICATION: Diffuse abdominal pain with chronic abdominal wound with wound VAC. COMPARISON: Correlation is made with prior CT from 02/16/2021. FINDINGS: The lung bases are clear. The liver is unremarkable. Gallbladder is surgically absent. There is no biliary ductal dilatation. The pancreas and spleen are unremarkable. No adrenal mass is detected. Kidneys are unremarkable. Aorta is calcified but nonaneurysmal. There is a midline abdominal wound as well as a right abdominal wound that extends from the skin surface to the abdominal wall musculature. No underlying fluid collection is seen. The small and large bowel loops are normal caliber. There is no obstruction. No free fluid or fluid collection is seen. Bladder is decompressed. Uterus is surgically absent. IMPRESSION: Abdominal wall defects in the midline and right abdomen, as described. No underlying fluid collection or abscess is identified. No acute features are detected. Dictated by: Dictated on workstation # [id number]
[2021-05-17] MEDS ORDERED: ONDANSETRON 4 MG/2 ML (SDV) Z0FRAN IVP STA (15:43)
[2021-05-17] MEDS ORDERED: NS IV 1000 ML 1,000 ML IV STA (15:43)
[2021-05-17 16:16] VITALS: BP 151/78
== END 2021-05-17 16:55 | disposition home or self-care (01) ==
LOC: EDUNIT# 13:34 → ER FS 13:36
DX: R10.84 Generalized abdominal pain (principal); R11.2 Nausea with vomiting, unspecified; R19.7 Diarrhea, unspecified; T81.49XA Infection following a procedure, other surgical site, initial encounter; L98.8 Other specified disorders of the skin and subcutaneous tissue; J45.909 Unspecified asthma, uncomplicated; K21.9 Gastro-esophageal reflux disease without esophagitis; F41.9 Anxiety disorder, unspecified; F32.9 Major depressive disorder, single episode, unspecified; E11.9 Type 2 diabetes mellitus without complications; Z91.040 Latex allergy status; Z79.4 Long term (current) use of insulin; Z79.899 Other long term (current) drug therapy
CPT/HCPCS: 36415; 74177; 80053; 81000; 83605; 83735; 85025; 85610; 85730; 86141; 87040; 87088